=== PATIENT | male | born 1975 | race Caucasian/White ===

== ENCOUNTER 2017-05-18 13:49 | Inpatient (IN) | payer OTHER ==
[2017-05-18] MEDS ORDERED: METOCLOPRAMIDE 5 MG/ML 2 ML VIAL IVP STA (14:54)
[2017-05-18] MEDS ORDERED: SODIUM CHLORIDE 0.9% 1,000 ML IV STA (14:54)
[2017-05-18] MEDS ORDERED: PANTOPRAZOLE 40 MG/10 ML VIAL IVP STA (14:54)
[2017-05-18] MEDS ORDERED: HYDROmorphone 0.5 MG/0.5 ML SYRINGE IVP STA (14:54)
--- NOTE | 2017-05-18 15:01 | ED ---
Abdominal Pain HPI - General Chief Complaint: Abdominal Pain Stated Complaint: Abd Pain Time Seen by Provider: 05/18/17 14:48 Source: patient Mode of arrival: wheelchair Limitations: no limitations - History of Present Illness Initial Comments: 41-year-old male patient presents to emergency department today for evaluation of abdominal pain and vomiting. The patient states that abdominal pain started around 11 AM today. States that throughout the morning he had felt fine. He states that the abdominal pain is sharp in nature and over the upper abdomen. He is currently rating it a 10 out of 10 on the pain scale. He states that he has had multiple episodes of vomiting today. He states that one episode did appear to have coffee ground emesis present. He states he does have a history of gastric ulcers and has had similar symptoms before. He states this pain is worse than usual. He is currently being treated at [facility] facility for alcohol dependence. States that he has been sober for 16 days. He denies any history of pancreatitis. Denies any history of abdominal surgeries. Patient denies any recent fever, chills, shortness breath, chest pain, diarrhea , constipation, hematochezia, melena, back pain, numbness, tingling, headache, visual changes, hematuria, dysuria, urinary frequency, urinary urgency, or any other complaints. - Related Data Home Medications Medication Instructions Recorded Confirmed Acetaminophen [Tylenol 8 Hour] 650 mg PO Q4H PRN 05/18/17 05/18/17 Calcium/Magnesium 1 tab PO TID 05/18/17 05/18/17 Chlorpheniramine Maleate 4 mg PO Q4H PRN 05/18/17 05/18/17 [Chlor-Trimeton] Cholecalciferol [Vitamin D3] 1,000 unit PO DAILY 05/18/17 05/18/17 Folic Acid 1 mg PO DAILY 05/18/17 05/18/17 Gabapentin 600 mg PO TID 05/18/17 05/18/17 Ibuprofen [Motrin] 600 mg PO Q6H PRN 05/18/17 05/18/17 Loperamide [Imodium] 4 mg PO QID PRN 05/18/17 05/18/17 Loratadine [Claritin] 10 mg PO DAILY PRN 05/18/17 05/18/17 Multivitamins, Thera [Multivitamin 1 tab PO DAILY 05/18/17 05/18/17 (formulary)] Nicotine 7Mg/24Hr Patch [Habitrol 1 patch TRANSDERM DAILY 05/18/17 05/18/17 7Mg/24Hr Patch] Ondansetron HCl [Zofran] 8 mg PO Q6H PRN 05/18/17 05/18/17 Ondansetron [Zofran] 4 mg IM Q6H PRN 05/18/17 05/18/17 Propranolol HCl [Inderal Xl] 120 mg PO DAILY 05/18/17 05/18/17 Sucralfate [Carafate] 1 gm PO QID 05/18/17 05/18/17 Thiamine [Vitamin B-1] 100 mg PO DAILY 05/18/17 05/18/17 Tigan 200mg Im 200 mg IM Q6H PRN 05/18/17 05/18/17 Trimethobenzamide [Tigan] 300 mg PO Q6H PRN 05/18/17 05/18/17 cloNIDine HCL [Catapres] 0.3 mg PO Q4H PRN 05/18/17 05/18/17 traZODone HCL 150 mg PO HS 05/18/17 05/18/17 Allergies Allergy/AdvReac Type Severity Reaction Status Date / Time Penicillins Allergy Rash/Hives Verified 05/18/17 20:49 Review of Systems ROS Statement: Those systems with pertinent positive or pertinent negative responses have been documented in the HPI. ROS Other: All systems not noted in ROS Statement are negative. Past Medical History Past Medical History: No Reported History Additional Past Medical History / Comment(s): ulcer, in rehab for etoh abuse History of Any Multi-Drug Resistant Organisms: None Reported Past Surgical History: No Surgical Hx Reported Past Psychological History: Anxiety Smoking Status: Current every day smoker Past Alcohol Use History: None Reported Past Drug Use History: None Reported - Past Family History Mother Family Medical History: Thyroid Disorder Father Additional Family Medical History / Comment(s): ETOH General Exam Limitations: no limitations General appearance: alert, in distress (Mild), other (Well-developed, well- nourished adult male patient in mild distress related to pain. Vital signs upon presentation her temperature 97.0F, pulse 66, respirations 18, blood pressure 130/82, pulse ox 100% on room air.) Eye exam: Present: normal appearance, PERRL, EOMI. Absent: scleral icterus, conjunctival injection, periorbital swelling ENT exam: Present: normal exam, normal oropharynx, mucous membranes moist Respiratory exam: Present: normal lung sounds bilaterally. Absent: respiratory distress, wheezes, rales, rhonchi, stridor Cardiovascular Exam: Present: regular rate, normal rhythm, normal heart sounds. Absent: systolic murmur, diastolic murmur, rubs, gallop, clicks GI/Abdominal exam: Present: soft, tenderness (Generalized abdominal tenderness, worse over the upper abdomen, patient states most severe over the left upper quadrant.), guarding, normal bowel sounds. Absent: distended, rebound, rigid Back exam: Present: normal inspection. Absent: CVA tenderness (R), CVA tenderness (L) Neurological exam: Present: alert, oriented X3, CN II-XII intact Psychiatric exam: Present: normal affect, normal mood Skin exam: Present: warm, dry, intact, normal color. Absent: rash Course Vital Signs 05/18/17 05/18/17 05/18/17 14:07 16:08 17:00 Temperature 97.0 F L 99 F 99 F Pulse Rate 66 72 64 Respiratory 18 20 20 Rate Blood Pressure 130/82 146/98 149/90 O2 Sat by Pulse 100 100 95 Oximetry 05/18/17 05/18/17 18:00 19:00 Temperature Pulse Rate 94 99 Respiratory 20 20 Rate Blood Pressure 137/90 138/87 O2 Sat by Pulse 96 98 Oximetry - Reevaluation(s) Reevaluation #1: 05/18/17 17:07 Recheck of patient at 1700: Patient still complaining of significant pain in his upper abdomen. Vomiting has improved. Patient's amylase and lipase are significantly elevated. He will be given additional dose of pain medication, additional 1 L of fluid has been ordered. We will obtain an ultrasound of his right upper quadrant abdomen. Medical Decision Making - Medical Decision Making 41-year-old male patient presented for evaluation of upper abdominal pain and vomiting that started earlier today. Labs were reviewed did show white blood cell count of 14.2. He also did have an elevated amylase at 1408, and a lipase of 14,278. KUB was negative for any acute process. Patient is a known alcoholic however we did obtain a ultrasound of the right upper quadrant which was is negative for any acute process. Patient will be admitted to Dr. Berry's service. He will be given IV fluids, pain control, and anti-emetics. - Lab Data Result diagrams: 05/18/17 15:25 05/18/17 15:25 Lab Results 05/18/17 05/18/17 05/18/17 Range/Units 15:00 15:25 15:25 WBC 14.2 H (3.8-10.6) k/uL RBC 4.30 (4.30-5.90) m/uL Hgb 14.7 (13.0-17.5) gm/dL Hct 43.3 (39.0-53.0) % MCV 100.6 H (80.0-100.0) fL MCH 34.3 (25.0-35.0) pg MCHC 34.1 (31.0-37.0) g/dL RDW 11.6 (11.5-15.5) % Plt Count 534 H (150-450) k/uL Neutrophils % 75 % Lymphocytes % 17 % Monocytes % 4 % Eosinophils % 2 % Basophils % 0 % Neutrophils # 10.6 H (1.3-7.7) k/uL Lymphocytes # 2.4 (1.0-4.8) k/uL Monocytes # 0.6 (0-1.0) k/uL Eosinophils # 0.2 (0-0.7) k/uL Basophils # 0.1 (0-0.2) k/uL PT (9.0-12.0) sec INR (<1.2) APTT (22.0-30.0) sec Sodium 140 (137-145) mmol/L Potassium 4.1 (3.5-5.1) mmol/L Chloride 104 (98-107) mmol/L Carbon Dioxide 19 L (22-30) mmol/L Anion Gap 17 mmol/L BUN 5 L (9-20) mg/dL Creatinine 0.69 (0.66-1.25) mg/dL Est GFR (MDRD) Af Amer >60 (>60 ml/min/1.73 sqM) Est GFR (MDRD) Non-Af >60 (>60 ml/min/1.73 sqM) Glucose 107 H (74-99) mg/dL Plasma Lactic Acid Kel (0.7-2.0) mmol/L Calcium 10.3 H (8.4-10.2) mg/dL Total Bilirubin 0.8 (0.2-1.3) mg/dL AST 38 (17-59) U/L ALT 39 (21-72) U/L Alkaline Phosphatase 65 (38-126) U/L Total Protein 8.0 (6.3-8.2) g/dL Albumin 4.4 (3.5-5.0) g/dL Amylase 1408 H* (30-110) U/L Lipase 85982 H (23-300) U/L Urine Color Yellow Urine Appearance Clear (Clear) Urine pH 8.0 (5.0-8.0) Ur Specific [place] 1.010 (1.001-1.035) Urine Protein Negative (Negative) Urine Glucose (UA) Negative (Negative) Urine Ketones 3+ H (Negative) Urine Blood Negative (Negative) Urine Nitrite Negative (Negative) Urine Bilirubin Negative (Negative) Urine Urobilinogen <2.0 (<2.0) mg/dL Ur Leukocyte Esterase Negative (Negative) 05/18/17 05/18/17 Range/Units 15:25 15:25 WBC (3.8-10.6) k/uL RBC (4.30-5.90) m/uL Hgb (13.0-17.5) gm/dL Hct (39.0-53.0) % MCV (80.0-100.0) fL MCH (25.0-35.0) pg MCHC (31.0-37.0) g/dL RDW (11.5-15.5) % Plt Count (150-450) k/uL Neutrophils % % Lymphocytes % % Monocytes % % Eosinophils % % Basophils % % Neutrophils # (1.3-7.7) k/uL Lymphocytes # (1.0-4.8) k/uL Monocytes # (0-1.0) k/uL Eosinophils # (0-0.7) k/uL Basophils # (0-0.2) k/uL PT 11.5 (9.0-12.0) sec INR 1.1 (<1.2) APTT 25.4 (22.0-30.0) sec Sodium (137-145) mmol/L Potassium (3.5-5.1) mmol/L Chloride (98-107) mmol/L Carbon Dioxide (22-30) mmol/L Anion Gap mmol/L BUN (9-20) mg/dL Creatinine (0.66-1.25) mg/dL Est GFR (MDRD) Af Amer (>60 ml/min/1.73 sqM) Est GFR (MDRD) Non-Af (>60 ml/min/1.73 sqM) Glucose (74-99) mg/dL Plasma Lactic Acid Kel 1.8 (0.7-2.0) mmol/L Calcium (8.4-10.2) mg/dL Total Bilirubin (0.2-1.3) mg/dL AST (17-59) U/L ALT (21-72) U/L Alkaline Phosphatase (38-126) U/L Total Protein (6.3-8.2) g/dL Albumin (3.5-5.0) g/dL Amylase (30-110) U/L Lipase (23-300) U/L Urine Color Urine Appearance (Clear) Urine pH (5.0-8.0) Ur Specific [place] (1.001-1.035) Urine Protein (Negative) Urine Glucose (UA) (Negative) Urine Ketones (Negative) Urine Blood (Negative) Urine Nitrite (Negative) Urine Bilirubin (Negative) Urine Urobilinogen (<2.0) mg/dL Ur Leukocyte Esterase (Negative) - Radiology Data Radiology results: report reviewed, image reviewed Single supine KUB image of the abdomen is obtained. Small bowel Demster is no evidence for dilation or air-fluid levels. Gas and fecal material seen and nondistended colon. No convincing evidence for pneumoperitoneum. No unusual calcifications. Lung bases are clear. The osseous structures are intact. Impression by Dr. Sotomayor states overall nonobstructive bowel gas pattern. Ultrasound of the right upper quadrant abdomen report reviewed in its entirety. Impression by Dr. Molina shows negative right upper quadrant abdominal sonogram. No gallstones or dilated ducts. Disposition Clinical Impression: Acute pancreatitis, Vomiting Disposition: ADMITTED IP TO THIS [facility] Condition: Fair Decision to Admit Reason: Admit from EC Decision Date: 05/18/17 Decision Time: 18:33
[2017-05-18 15:24] LABS: Appearance,Urine Clear (Clear); Bilirubin,Urine Negative (Negative); Glucose,Urine (UA) Negative (Negative); Ketones,Urine 3+ (Negative); Leukocyte Esterase,Urine Negative (Negative); Nitrite,Urine Negative (Negative); Protein,Urine Negative (Negative); UA Billing (MACRO vs. MICRO) CHEM; Urobilinogen,Urine <2.0 mg/dL (<2.0)
[2017-05-18 15:48] LABS: Basophils # (A) 0.1 k/uL (0-0.2); Basophils % (A) 0 %; CH 33.9; CHCM 33.8; Eosinophils # (A) 0.2 k/uL (0-0.7); Eosinophils % (A) 2 %; HCT 43.3 % (39.0-53.0); HDW 2.67; HGB 14.7 gm/dL (13.0-17.5); INR 1.1 (<1.2); Luc # (Auto) 0.26; Luc % (Auto) 2; Lymphocytes # (A) 2.4 k/uL (1.0-4.8); Lymphocytes % (A) 17 %; MCH 34.3 pg (25.0-35.0); MCHC 34.1 g/dL (31.0-37.0); MCV 100.6 fL (80.0-100.0); Mean Platelet Volume 7.1; Monocytes # (A) 0.6 k/uL (0-1.0); Monocytes % (A) 4 %; Neutrophils # (A) 10.6 k/uL (1.3-7.7); Neutrophils % (A) 75 %; Partial Thromboplastin Time 25.4 sec (22.0-30.0); Prothrombin Time 11.5 sec (9.0-12.0); RDW 11.6 % (11.5-15.5); WBC 14.2 k/uL (3.8-10.6); WBC (Perox) 14.88
[2017-05-18 15:50] LABS: ALT 39 U/L (21-72); AST 38 U/L (17-59); Alkaline Phosphatase 65 U/L (38-126); Anion Gap 17 mmol/L; Blood Urea Nitrogen 5 mg/dL (9-20); Calcium 10.3 mg/dL (8.4-10.2); Carbon Dioxide 19 mmol/L (22-30); Chloride 104 mmol/L (98-107); Glucose 107 mg/dL (74-99); Non-African American GFR(MDRD) >60 (>60 ml/min/1.73 sqM); Potassium 4.1 mmol/L (3.5-5.1); Sodium 140 mmol/L (137-145); Total Bilirubin 0.8 mg/dL (0.2-1.3)
--- NOTE | 2017-05-18 16:03 | XR ---
EXAMINATION TYPE: XR KUB DATE OF EXAM: 05/18/2017 COMPARISON: NONE HISTORY: Pain TECHNIQUE: Single supine KUB image of the abdomen is obtained FINDINGS: Small bowel demonstrates no evidence for dilatation or air fluid levels. Gas and fecal material is seen in non-distended colon. No convincing evidence for pneumoperitoneum. No unusual calcifications. The lung bases are clear. The osseous structures are intact. IMPRESSION: 1. Overall nonobstructive bowel gas pattern.
[2017-05-18] MEDS ORDERED: SODIUM CHLORIDE 0.9% 1,000 ML IV ONE (16:08)
[2017-05-18 16:25] LABS: Amylase 1408 U/L (30-110)
[2017-05-18] MEDS ORDERED: HYDROmorphone 1 MG/ML 1 ML SYRINGE IVP STA (17:02)
--- NOTE | 2017-05-18 18:05 | US ---
EXAMINATION TYPE: US abdomen limited DATE OF EXAM: 05/18/2017 COMPARISON: NONE CLINICAL HISTORY: Pain. Pain and vomiting EXAM MEASUREMENTS: Liver Length: 16.6 cm Gallbladder Wall: 0.18 cm CBD: 0.39 cm Right Kidney: 11.3 x 5.8 x 4.8 cm Limited exam due to bowel gas Pancreas: Obscured by bowel gas Liver: Increased attenuation Gallbladder: wnl Evidence for sonographic Bundy's sign: No CBD: wnl Right Kidney: No hydronephrosis or masses seen IMPRESSION: Negative right upper quadrant abdominal sonogram. No gallstones or dilated ducts.
[2017-05-18] MEDS ORDERED: NALOXONE 0.4 MG/ML 1 ML VIAL IV PRN (18:29)
[2017-05-18] MEDS ORDERED: HYDROmorphone 1 MG/ML 1 ML SYRINGE IVP PRN (18:29)
[2017-05-18] MEDS ORDERED: LORATADINE 10 MG TAB PO PRN (19:15)
[2017-05-18] MEDS ORDERED: diphenhydrAMINE 25 MG CAP PO PRN (19:15)
[2017-05-18] MEDS ORDERED: TRIMETHOBENZAMIDE 300 MG CAP PO PRN (19:15)
[2017-05-18] MEDS ORDERED: ACETAMINOPHEN TAB 325 MG TAB PO PRN (19:15)
[2017-05-18] MEDS ORDERED: cloNIDine HCL 0.1 MG TAB PO PRN (19:15)
[2017-05-18] MEDS ORDERED: LOPERAMIDE 2 MG CAP PO PRN (19:15)
[2017-05-18] MEDS ORDERED: SUCRALFATE 1 GM TAB PO SCH (21:00)
[2017-05-18] MEDS: SODIUM CHLORIDE 0.9% 1,000 ML IV SCH (21:46)
[2017-05-18] MEDS: CALCIUM CARBONATE 500 MG CHEWABLE PO SCH (21:46)
[2017-05-18] MEDS: GABAPENTIN 300 MG CAP PO SCH (21:46)
[2017-05-18] MEDS: traZODone HCL 50 MG TAB PO SCH (21:47)
--- NOTE | 2017-05-18 21:58 | HP ---
HISTORY AND PHYSICAL DATE OF ADMISSION: 05/18/2017 PRESENTING COMPLAINT: Epigastric pain. HISTORY OF PRESENTING COMPLAINT: This is a 41-year-old patient of Dr. Kapadia, a long-standing alcoholic, who for the last 16 days has been at [facility]. The patient about 2 years ago had an EGD, was found to have peptic ulcer disease for which he is on medications. The patient has continued to drink up to about 2 weeks ago, also a smoker. Patient is known to me from recent admission when the patient had DTs and is having abdominal pain on and off. This morning, patient started having increasing abdominal pain with vomiting and increasing pain and he was sent in here. No dark stools. No fever. The patient is somewhat restless. No chest pain. REVIEW OF SYSTEMS: CONSTITUTIONAL: Tired. HEENT: None. RESPIRATORY: None. CARDIOVASCULAR: None. GASTROINTESTINAL: As above. GENITOURINARY: None. MUSCULOSKELETAL: None. DERMATOLOGICAL: None. HEMATOLOGIC: None. LYMPHATIC: None. PSYCHIATRY: A lot of anxiety. NEUROLOGICAL: Neuropathic pain in the neck for which patient has taken Neurontin. PAST MEDICAL HISTORY: Seizure disorder, peptic ulcer disease, neck radiculopathy. PAST SURGICAL HISTORY: None. PAST PSYCH HISTORY: Anxiety, depression. SOCIAL HISTORY: Smoking a pack a day. Alcoholic up until about 2 weeks ago. Lives with his mother. FAMILY HISTORY: Thyroid disorder, alcohol problem. HOME MEDICATIONS: 1. Trazodone 150 mg q.h.s. 2. Catapres 0.3 mg q.4 p.r.n. 3. Tigan 300 mg every 6 hours p.r.n. 4. Thiamine 100 mg p.o. daily. 5. Carafate 1 g p.o. q.i.d. 6. Inderal XL 100 mg p.o. daily. 7. Zofran 4 mg every 6 hours p.r.n. 8. Nicotine patch. 9. Multivitamin 1 tablet p.o. daily. 10.Claritin 10 mg p.o. daily p.r.n. 11.Imodium 4 mg p.o. q.i.d. p.r.n. 12.Motrin 600 mg every 6 hours p.r.n. 13.Neurontin 600 mg p.o. t.i.d. 14.Folic acid 1 mg p.o. daily. 15.Vitamin D3 1000 units p.o. daily. 16.Chlor-Trimeton 4 mg every 6 hours p.r.n. 17.Tylenol 350 mg every 6 hours q.4h p.r.n. ALLERGIES: PENICILLIN. EXAMINATION: Temperature 98.7, pulse 67, respirations 18, blood pressure 130/82, pulse ox 100% on room air. GENERAL APPEARANCE: Average built, lying in bed, slightly restless. EYES: Pupils equal. Conjunctivae normal. HEENT: Oral cavity normal. NECK: JVD not raised. Mass not palpable. RESPIRATORY: Effort normal. Lungs are clear. CARDIOVASCULAR: First and second sounds normal. No edema. ABDOMEN: Epigastric tenderness. No guarding or rigidity. Liver spleen not palpable. LYMPHATIC: No lymph nodes palpable in neck or axillae. PSYCHIATRY: Alert and oriented times three. Mood and affect anxious-appearing. NEUROLOGICAL: Pupils, equal. Cranial nerves grossly intact. Power and sensation grossly intact. INVESTIGATIONS: White count 14.2, hemoglobin 14.7, platelets 534. Potassium 4.1, BUN 10, creatinine 0.69. Amylase 1408, lipase 16787. ASSESSMENT: 1. Acute severe pancreatitis, alcohol-induced. 2. Hypercalcemia from dehydration. 3. Peptic ulcer disease. 4. Chronic nicotine dependence. 5. Chronic alcohol dependence. 6. Anxiety, not otherwise specified. PLAN: Patient is on PPIs, IV fluids. Patient is on n.p.o. Diet. Will get a psychiatry opinion. Check labs in the morning. Care was discussed with the patient. MMODL / IJN: [id number] /
[2017-05-18] MEDS: NICOTINE 21MG/24HR PATCH TRANSDERM SCH (23:14)
[2017-05-18] MEDS: CALCIUM CARBONATE LIQUID 500 MG/5 ML CUP PO SCH (23:14)
[2017-05-19] MEDS: METOPROLOL TARTRATE 12.5 MG TAB PO SCH ×4 (00:32→23:40)
[2017-05-19] MEDS: SODIUM CHLORIDE 0.9% 1,000 ML IV SCH ×4 (05:49→23:37)
[2017-05-19] MEDS: ONDANSETRON 4 MG/2 ML VIAL IVP PRN ×3 (07:11→20:20)
[2017-05-19 08:40] LABS: Basophils % (A) 0 %; CH 34.4; CHCM 34.2; Eosinophils # (A) 0.1 k/uL (0-0.7); Eosinophils % (A) 0 %; HCT 40.3 % (39.0-53.0); HDW 2.59; Luc # (Auto) 0.11; Luc % (Auto) 1; Lymphocytes # (A) 1.4 k/uL (1.0-4.8); Lymphocytes % (A) 10 %; MCH 32.7 pg (25.0-35.0); MCHC 32.3 g/dL (31.0-37.0); MCV 101.1 fL (80.0-100.0); Mean Platelet Volume 7.2; Monocytes # (A) 0.8 k/uL (0-1.0); Monocytes % (A) 6 %; Neutrophils # (A) 10.7 k/uL (1.3-7.7); Neutrophils % (A) 82 %; RBC 3.98 m/uL (4.30-5.90); RDW 12.2 % (11.5-15.5); WBC 13.1 k/uL (3.8-10.6); WBC (Perox) 12.68
[2017-05-19 08:58] LABS: ALT 27 U/L (21-72); AST 21 U/L (17-59); Alkaline Phosphatase 58 U/L (38-126); Anion Gap 16 mmol/L; Blood Urea Nitrogen 3 mg/dL (9-20); Calcium 8.9 mg/dL (8.4-10.2); Carbon Dioxide 18 mmol/L (22-30); Chloride 105 mmol/L (98-107); Glucose 90 mg/dL (74-99); Non-African American GFR(MDRD) >60 (>60 ml/min/1.73 sqM); Potassium 3.7 mmol/L (3.5-5.1); Sodium 139 mmol/L (137-145); Total Bilirubin 0.7 mg/dL (0.2-1.3); Total Protein 6.6 g/dL (6.3-8.2)
[2017-05-19] MEDS ORDERED: PROPRANOLOL LA 60 MG CAP.SA.24H PO SCH (09:00)
[2017-05-19] MEDS ORDERED: PANTOPRAZOLE 40 MG/10 ML VIAL IV SCH (09:00)
[2017-05-19] MEDS ORDERED: NICOTINE 7MG/24HR PATCH TRANSDERM SCH (09:00)
[2017-05-19] MEDS: CALCIUM CARBONATE LIQUID 500 MG/5 ML CUP PO SCH ×3 (09:02→16:33)
[2017-05-19] MEDS: PANTOPRAZOLE 40 MG TABLET PO SCH ×2 (09:02→16:33)
[2017-05-19] MEDS: GABAPENTIN 300 MG CAP PO SCH ×3 (09:02→23:40)
[2017-05-19] MEDS: CALCIUM CARBONATE 500 MG CHEWABLE PO SCH (09:02)
[2017-05-19] MEDS: NICOTINE 21MG/24HR PATCH TRANSDERM SCH (09:02)
[2017-05-19 09:16] LABS: Amylase 1106 U/L (30-110)
[2017-05-19] MEDS ORDERED: SODIUM CHLORIDE 0.9% 500 ML IV ONE (09:49)
--- NOTE | 2017-05-19 09:50 | P.CONS ---
History of Present Illness - Reason for Consult Consult date: 05/19/17 Pancreatitis Requesting physician: Amaury Berry - History of Present Illness 41-year-old gentleman with a history of long-standing alcohol abuse presents with acute abdominal pain in the upper abdomen. Patient has been in rehabilitation for alcoholism the last 17 days. Last alcoholic drink 3-4 weeks ago. Pain is very sharp localized to the upper abdomen midepigastrium without fever or chills. Denies hematemesis hematochezia melena. He has had previous episodes of pancreatitis some requiring hospitalization. He has been drinking alcohol on daily basis for more than 20 years. Admission white count 14.2. Platelet 534. Hemoglobin 14.7. INR 1.1. BUN 5. Creatinine 0.6. Amylase 1408. Lipase 14,278. Today lipase is 16,458. Amylase 1106. LFTs within normal limits. Ultrasound abdomen negative no gallstones dilated ducts or evidence of pseudocyst. Review of Systems Constitutional: Denies fever, chills, sweats, weight gain, or loss. HEENT: Negative for migraines, blurred vision or loss, earaches, drainage, tinnitus, oral mucosal lesions, dysphagia, or odynophagia. Cardiac: Negative for chest pain, arrhythmias, or palpitation. Respiratory: Negative for shortness of breath, hemoptysis, cough, or sputum production. Gastrointestinal: See HPI for pertinent findings. Genitourinary: Negative for hematuria, urgency, frequency, polyuria, dysuria, or penile discharge. Musculoskeletal: Negative for muscle aches, swelling, arthritis, and arthralgias. Neurologic: Negative for stroke or TIA. Endocrine: Negative for thyroid problems. Skin: Negative for rash or itching. Psychiatric: Negative history for depression and anxiety All systems: negative (See HPI) Past Medical History Past Medical History: No Reported History Additional Past Medical History / Comment(s): ulcer, in rehab for etoh abuse History of Any Multi-Drug Resistant Organisms: None Reported Past Surgical History: No Surgical Hx Reported Past Anesthesia/Blood Transfusion Reactions: No Reported Reaction Past Psychological History: Anxiety Smoking Status: Current every day smoker Past Alcohol Use History: None Reported Past Drug Use History: None Reported - Past Family History Mother Family Medical History: Thyroid Disorder Father Additional Family Medical History / Comment(s): ETOH Medications and Allergies Home Medications Medication Instructions Recorded Confirmed Type Acetaminophen [Tylenol 8 Hour] 650 mg PO Q4H PRN 05/18/17 05/18/17 History Calcium/Magnesium 1 tab PO TID 05/18/17 05/18/17 History Chlorpheniramine Maleate 4 mg PO Q4H PRN 05/18/17 05/18/17 History [Chlor-Trimeton] Cholecalciferol [Vitamin D3] 1,000 unit PO DAILY 05/18/17 05/18/17 History Folic Acid 1 mg PO DAILY 05/18/17 05/18/17 History Gabapentin 600 mg PO TID 05/18/17 05/18/17 History Ibuprofen [Motrin] 600 mg PO Q6H PRN 05/18/17 05/18/17 History Loperamide [Imodium] 4 mg PO QID PRN 05/18/17 05/18/17 History Loratadine [Claritin] 10 mg PO DAILY PRN 05/18/17 05/18/17 History Multivitamins, Thera [Multivitamin 1 tab PO DAILY 05/18/17 05/18/17 History (formulary)] Nicotine 7Mg/24Hr Patch [Habitrol 1 patch TRANSDERM DAILY 05/18/17 05/18/17 History 7Mg/24Hr Patch] Ondansetron HCl [Zofran] 8 mg PO Q6H PRN 05/18/17 05/18/17 History Ondansetron [Zofran] 4 mg IM Q6H PRN 05/18/17 05/18/17 History Propranolol HCl [Inderal Xl] 120 mg PO DAILY 05/18/17 05/18/17 History Sucralfate [Carafate] 1 gm PO QID 05/18/17 05/18/17 History Thiamine [Vitamin B-1] 100 mg PO DAILY 05/18/17 05/18/17 History Tigan 200mg Im 200 mg IM Q6H PRN 05/18/17 05/18/17 History Trimethobenzamide [Tigan] 300 mg PO Q6H PRN 05/18/17 05/18/17 History cloNIDine HCL [Catapres] 0.3 mg PO Q4H PRN 05/18/17 05/18/17 History traZODone HCL 150 mg PO HS 05/18/17 05/18/17 History Allergies Allergy/AdvReac Type Severity Reaction Status Date / Time Penicillins Allergy Rash/Hives Verified 05/18/17 20:49 Physical Exam Vitals: Vital Signs Temp Pulse Pulse Resp BP BP BP 05/19/17 07:00 97.6 F 98 16 142/96 05/18/17 22:14 97.9 F 62 16 149/85 05/18/17 19:00 99 20 138/87 05/18/17 18:00 94 20 137/90 05/18/17 17:00 99 F 64 20 149/90 05/18/17 16:08 99 F 72 20 146/98 05/18/17 14:07 97.0 F L 66 18 130/82 Pulse Ox 05/19/17 07:00 96 05/18/17 22:14 99 05/18/17 19:00 98 05/18/17 18:00 96 05/18/17 17:00 95 05/18/17 16:08 100 05/18/17 14:07 100 Intake and Output 05/18/17 05/19/17 05/19/17 22:59 06:59 14:59 Output Total 400 500 Balance -400 -500 Output: Urine 400 500 Other: # Voids 1 General appearance: The patient is alert, oriented, in no acute distress. HET: Head is normocephalic and atraumatic. Pupils are equal and reactive. Oropharynx is clear without lesions. Neck: Supple without lymphadenopathy. Trachea midline. Heart: S1 S2. Regular rate and rhythm. Lungs: No crackles or wheezes are heard. Abdomen: Soft, midepigastric tenderness slight bloatedness with bowel sounds. No peritoneal signs. No palpable organomegaly or masses. Extremities: Normal skin color and turgor. No cyanosis, rash, ulceration, clubbing, or edema. Radial and pedal pulses are 2/4 bilaterally. Neurological: No focal deficits. Strength and sensation are grossly intact. Results CBC & Chem 7: 05/19/17 08:12 05/19/17 08:12 Labs: Abnormal Lab Results - Last 24 Hours (Table) 05/18/17 05/18/17 05/18/17 Range/Units 15:00 15:25 15:25 WBC 14.2 H (3.8-10.6) k/uL RBC (4.30-5.90) m/uL MCV 100.6 H (80.0-100.0) fL Plt Count 534 H (150-450) k/uL Neutrophils # 10.6 H (1.3-7.7) k/uL Carbon Dioxide 19 L (22-30) mmol/L BUN 5 L (9-20) mg/dL Creatinine (0.66-1.25) mg/dL Glucose 107 H (74-99) mg/dL Calcium 10.3 H (8.4-10.2) mg/dL Amylase 1408 H* (30-110) U/L Lipase 34256 H (23-300) U/L Urine Ketones 3+ H (Negative) 05/19/17 05/19/17 Range/Units 08:12 08:12 WBC 13.1 H (3.8-10.6) k/uL RBC 3.98 L (4.30-5.90) m/uL MCV 101.1 H (80.0-100.0) fL Plt Count 461 H (150-450) k/uL Neutrophils # 10.7 H (1.3-7.7) k/uL Carbon Dioxide 18 L (22-30) mmol/L BUN 3 L (9-20) mg/dL Creatinine 0.59 L (0.66-1.25) mg/dL Glucose (74-99) mg/dL Calcium (8.4-10.2) mg/dL Amylase 1106 H* (30-110) U/L Lipase 08899 H (23-300) U/L Urine Ketones (Negative) US - abdomen: report reviewed (Dr. Henao) Assessment and Plan (1) Acute pancreatitis Narrative/Plan: Suspect alcohol pancreatitis Status: Acute (2) ETOH abuse Status: Acute Plan: 1. Aggressive IV hydration NS 150 ml/hr. Saline bolus 500 ml x 1. Nothing by mouth except medications ice chips until pain enzymes improves. 2. GI prophylaxis Protonix 40 mg twice daily ordered. 3. Alcohol abstinence reinforced. Thank you for this kind referral and the opportunity to participate in the care of your patient. This consultation was discussed with Dr. Henao. The impression and plan of care have been directed as dictated.
[2017-05-19] MEDS: CHOLECALCIFEROL 1,000 UNIT TAB PO SCH (11:37)
[2017-05-19] MEDS: FOLIC ACID 1 MG TAB PO SCH (11:37)
[2017-05-19] MEDS: THIAMINE 100 MG TAB PO SCH (11:37)
[2017-05-19] MEDS: MULTIVITAMINS, THERA 1 EACH TAB PO SCH (11:37)
[2017-05-19] MEDS: HYDROmorphone 0.5 MG/0.5 ML SYRINGE IVP PRN ×5 (11:38→23:37)
[2017-05-19 12:14] LABS: Blood Urea Nitrogen 3 mg/dL (9-20); Non-African American GFR(MDRD) >60 (>60 ml/min/1.73 sqM)
--- NOTE | 2017-05-19 21:38 | P.PN ---
Progress Note - Text Progress Note Date: 05/19/17 DATE OF SERVICE: 05/19/2017 PRESENTING COMPLAINT: Acute abdominal pain HISTORY OF PRESENT ILLNESS: 41-year-old patient who presented with increasing abdominal pain and vomiting no dark stools no fever, diagnostic testing revealed acute severe pancreatitis and admitted for the same. INTERVAL HISTORY: 05/19/2017: Patient lying in bed appears uncomfortable. Complains of acute abdominal pain that is excruciating. Asking for something for pain. States Tylenol isn't doing the job. Complains of nausea no vomiting. GI consulted. Continues on IV fluids and proton pump inhibitors. Nothing by mouth status maintained, ambulatory to and from the bathroom independently. REVIEW OF SYSTEMS: Done for constitutional ,cardiovascular, GI, pulmonary with relevant findings as above. CURRENT MEDICATIONS Tylenol, calcium carbonate, cholecalciferol, Catapres, gabapentin, Dilaudid half a milligram IV push every 3 hours, Imodium, Lopressor, multivitamin, nicotine patch, Protonix 40 mg by mouth before meals twice a day, trazodone 150 mg by mouth at bedtime, Tigan 300 mg by mouth every 6 hours when necessary PHYSICAL EXAM VITAL SIGNS: Temperature 97.5, pulse 79, respiratory rate 18, blood pressure 137/91, oxygen saturation 97% on room air. GENERAL APPEARANCE: Lying in bed, appears uncomfortable EYES: Pupils equal. Conjunctiva normal. NECK: JVD not raised. Mass not palpable. RESPIRATORY: Respiratory effort normal. Lungs clear to auscultation. CARDIOVASCULAR: First and second sounds normal. No edema. ABDOMEN: Soft. Liver and spleen not palpable. Mid epigastric tenderness. No guarding or rigidity No mass palpable. PSYCHIATRY: Alert and oriented x3. Mood and affect anxious appearing INVESTIGATIONS: White blood cell count 13.1, BUN 3, creatinine 0.59, amylase 1106, lipase 16, 458. ASSESSMENT: -Acute severe pancreatitis, alcohol induced, worsening -Hypercalcemia from dehydration. -Peptic ulcer disease. -Chronic nicotine dependence, line-chronic alcohol dependence. -Anxiety not otherwise specified. PLAN: Continue aggressive IV hydration, pain control, maintain nothing by mouth status. Plan of care discussed with the patient the bedside, we will follow closely. KEY ACCOUNT REPRESENTATIVE statement: Patient was seen and examined by nurse practitioner Jaylyn Gonzalez and all elements of the case discussed with attending Dr. Berry
--- NOTE | 2017-05-19 22:08 | P.CN ---
Psychiatric Consult - . Consult date: 05/19/17 Consult:: PSYCHIATRY CONSULT: Patient interviewed at bedside briefly. Patient had just been administered pain medication so interview was very short. Patient denied suicidal ideations but did endose anxiety. She reports the source of such being the result of being [place] 9[place]11 when it occurred. She has recurrent dreams and nightmares of that day. Interview terminated. Will follow up tomorrow. ~ Alberto Cabezas DO Assessment and Plan Time with Patient: Less than 30
--- NOTE | 2017-05-19 22:53 | PN ---
PROGRESS NOTE ATTENDING NOTE: This patient was seen and examined by me. I discussed the case with my nurse practitioner, Jpcapri. Patient was admitted with acute alcoholic pancreatitis epigastric pain. Looks a bit depressed. PHYSICAL EXAMINATION: Abdomen soft. Epigastric tenderness. Anxious-appearing. LABS: White count 13.1, potassium 3.7, amylase 1106, lipase 16,458. ASSESSMENT: 1. Acute alcoholic pancreatitis, slow to respond. 2. Anxiety and depression not otherwise specified. PLAN: Will get a psychiatry opinion. Patient remains n.p.o. Again patient was reminded about smoking and alcohol and not to do the same. MMODL / IJN: [id number] /
[2017-05-19] MEDS: traZODone HCL 50 MG TAB PO SCH (23:40)
[2017-05-20] MEDS: traZODone HCL 50 MG TAB PO SCH ×2 (01:31→22:40)
[2017-05-20] MEDS: HYDROmorphone 0.5 MG/0.5 ML SYRINGE IVP PRN ×5 (02:43→20:16)
[2017-05-20] MEDS: ONDANSETRON 4 MG/2 ML VIAL IVP PRN ×3 (02:43→20:16)
[2017-05-20] MEDS: SODIUM CHLORIDE 0.9% 1,000 ML IV SCH ×4 (05:16→22:40)
[2017-05-20 08:15] LABS: Basophils % (A) 0 %; CH 34.3; CHCM 34.1; Eosinophils # (A) 0.1 k/uL (0-0.7); Eosinophils % (A) 1 %; HCT 37.3 % (39.0-53.0); HDW 2.55; HGB 12.4 gm/dL (13.0-17.5); Luc # (Auto) 0.18; Luc % (Auto) 1; Lymphocytes # (A) 1.5 k/uL (1.0-4.8); Lymphocytes % (A) 11 %; MCH 33.6 pg (25.0-35.0); MCHC 33.4 g/dL (31.0-37.0); MCV 100.8 fL (80.0-100.0); Mean Platelet Volume 7.2; Monocytes % (A) 7 %; Neutrophils # (A) 11.2 k/uL (1.3-7.7); Neutrophils % (A) 80 %
[2017-05-20 08:43] LABS: Amylase 226 U/L (30-110); Anion Gap 14 mmol/L; Blood Urea Nitrogen 2 mg/dL (9-20); Calcium 8.6 mg/dL (8.4-10.2); Carbon Dioxide 19 mmol/L (22-30); Chloride 101 mmol/L (98-107); Glucose 77 mg/dL (74-99); Non-African American GFR(MDRD) >60 (>60 ml/min/1.73 sqM); Potassium 3.6 mmol/L (3.5-5.1); Sodium 134 mmol/L (137-145)
--- NOTE | 2017-05-20 09:51 | P.PN ---
Subjective Progress Note Date: 05/20/17 Principal diagnosis: Pancreatitis Admitted with alcohol pancreatitis. Feels better today. Pancreatic enzymes much improved. Afebrile. White count 14. Hemoglobin 12.4. Lipase 1004. Amylase 226. Objective - Vital Signs Vital signs: Vital Signs Temp 99.1 F 05/20/17 07:00 Pulse 106 H 05/20/17 07:00 Resp 16 05/20/17 07:00 BP 133/74 05/20/17 07:00 Pulse Ox 99 05/20/17 07:00 Intake & Output 05/19/17 05/20/17 05/20/17 18:59 06:59 18:59 Intake Total 0 Output Total 2450 1400 Balance -2450 -1400 Weight 81.647 kg Intake: Oral 0 Output: Urine 2250 1400 Emesis 200 Other: Voiding Method Toilet # Voids 1 1 # Emeses 1 - Exam General appearance: The patient is alert, oriented, in no acute distress. HET: Head is normocephalic and atraumatic. Pupils are equal and reactive. Oropharynx is clear without lesions. Neck: Supple without lymphadenopathy. Trachea midline. Heart: S1 S2. Regular rate and rhythm. Lungs: No crackles or wheezes are heard. Abdomen: Soft, midepigastric tenderness, nondistended with bowel sounds. No peritoneal signs. No palpable organomegaly or masses. Extremities: Normal skin color and turgor. No cyanosis, rash, ulceration, clubbing, or edema. Radial and pedal pulses are 2/4 bilaterally. Neurological: No focal deficits. Strength and sensation are grossly intact. - Labs CBC & Chem 7: 05/20/17 07:35 05/20/17 07:35 Labs: Abnormal Lab Results - Last 24 Hours (Table) 05/19/17 05/20/17 05/20/17 Range/Units 11:33 07:35 07:35 WBC 14.0 H (3.8-10.6) k/uL RBC 3.70 L (4.30-5.90) m/uL Hgb 12.4 L (13.0-17.5) gm/dL Hct 37.3 L (39.0-53.0) % MCV 100.8 H (80.0-100.0) fL Neutrophils # 11.2 H (1.3-7.7) k/uL Sodium 134 L (137-145) mmol/L Carbon Dioxide 19 L (22-30) mmol/L BUN 3 L 2 L (9-20) mg/dL Creatinine 0.58 L 0.55 L (0.66-1.25) mg/dL Amylase 226 H (30-110) U/L Lipase 1004 H (23-300) U/L Assessment and Plan (1) Acute pancreatitis Narrative/Plan: Suspect alcohol pancreatitis Status: Acute (2) ETOH abuse Status: Acute Plan: 1. Supportive measures. Clear liquid diet. We'll continue to follow. Assessment and plan a care discussed with Dr. Henao
[2017-05-20] MEDS: PANTOPRAZOLE 40 MG TABLET PO SCH ×2 (10:27→16:39)
[2017-05-20] MEDS: CALCIUM CARBONATE LIQUID 500 MG/5 ML CUP PO SCH ×3 (10:27→16:39)
[2017-05-20] MEDS: NICOTINE 21MG/24HR PATCH TRANSDERM SCH (10:28)
[2017-05-20] MEDS: GABAPENTIN 300 MG CAP PO SCH ×3 (10:30→22:42)
[2017-05-20] MEDS: METOPROLOL TARTRATE 12.5 MG TAB PO SCH ×3 (10:30→22:42)
[2017-05-20] MEDS: CHOLECALCIFEROL 1,000 UNIT TAB PO SCH (10:31)
[2017-05-20] MEDS: THIAMINE 100 MG TAB PO SCH (10:31)
[2017-05-20] MEDS: MULTIVITAMINS, THERA 1 EACH TAB PO SCH (10:31)
[2017-05-20] MEDS: FOLIC ACID 1 MG TAB PO SCH (10:31)
--- NOTE | 2017-05-20 16:58 | PN ---
PROGRESS NOTE DATE OF SERVICE: 05/20/2017 INTERVAL HISTORY: This 41-year-old gentleman admitted with acute alcoholic intoxication as well as acute pancreatitis is being closely monitored at this time. The patient complained of some slight tremors also. Patient has been in rehab for 19 days. The patient is not taking any alcohol since he has checked into [facility] according to him. The patient has multiple electrolytes abnormalities also. PAST MEDICAL HISTORY: Reviewed. REVIEW OF SYSTEMS: Cardio system: No angina or palpitations. Respiratory: As mentioned earlier. GI : As mentioned earlier. mentioned earlier. Central nervous system: No numbness, weakness. MEDICATIONS ARE: Reviewed and include: 1. Tums. 2. Vitamin D3 1000 units. 3. Catapres 0.3 q.4h p.r.n. 4. Folic acid 1 mg. 5. Dilaudid. 6. Imodium. 7. Lopressor. 8. Narcan. 10.Protonix 40 mg. PHYSICAL EXAMINATION: The patient is alert, oriented x3. Pulse is 106. Blood pressure 130/70, respiration 16, temperature 99.1, pulse ox 99% on room air. HEENT conjunctivae normal. Oral mucosa moist. Neck is no jugular venous distention. No carotid bruit. No lymph node enlargement. Cardiovascular system: S1, S2 muffled. Respiratory: Breath sounds diminished in the bases. A few scattered rhonchi. No crackles. Abdomen is soft, minimal tenderness in the epigastrium. No guarding. No rigidity. No mass palpable. Legs: No edema. No swelling. Central nervous system: Higher functions as mentioned earlier. Moves all four limbs. No focal deficits. Lymphatics: No lymph nodes palpable in the neck, axillae or groin. Skin no ulcer, rash or bleeding. LAB STUDIES: WBC 14, hemoglobin 6.4, sodium 134, amylase 223, Glucose 105. ASSESSMENT: 1. Acute on chronic pancreatitis possibly. 2. History of ETOH. 3. Increased elevated lipase. 4. Increased WBC. 5. Anemia possibly secondary to chronic disease. 6. History of anxiety. RECOMMENDATIONS AND DISCUSSION: This 41-year-old gentleman who presented with multiple complex medical issues, we will monitor the patient closely. Continue the current management and continue symptomatic treatment. I would recommend continue the current medications. Abdominal ultrasound was done on 05/18/17 showed otherwise there is no evidence of gallstones on ultrasound. Continue to monitor. Guarded prognosis. Further recommendations to follow. Continue the rest of the medications. MMODL / IJN: [id number] / MTDAlannah
[2017-05-20 23:58] VITALS: RESP 18
[2017-05-21] MEDS: HYDROmorphone 0.5 MG/0.5 ML SYRINGE IVP PRN ×5 (00:13→14:37)
[2017-05-21] MEDS: ONDANSETRON 4 MG/2 ML VIAL IVP PRN ×2 (04:59→11:19)
[2017-05-21] MEDS: GABAPENTIN 300 MG CAP PO SCH ×2 (08:07→14:37)
[2017-05-21] MEDS: NICOTINE 21MG/24HR PATCH TRANSDERM SCH (08:07)
[2017-05-21] MEDS: SODIUM CHLORIDE 0.9% 1,000 ML IV SCH ×2 (08:07→11:14)
[2017-05-21] MEDS: METOPROLOL TARTRATE 12.5 MG TAB PO SCH ×2 (08:07→14:37)
[2017-05-21] MEDS: CALCIUM CARBONATE LIQUID 500 MG/5 ML CUP PO SCH ×2 (08:07→11:14)
[2017-05-21] MEDS: PANTOPRAZOLE 40 MG TABLET PO SCH (08:09)
[2017-05-21 09:54] LABS: Basophils % (A) 0 %; CH 34.3; CHCM 33.9; Eosinophils # (A) 0.5 k/uL (0-0.7); Eosinophils % (A) 5 %; HCT 35.3 % (39.0-53.0); HDW 2.62; HGB 11.4 gm/dL (13.0-17.5); Luc # (Auto) 0.11; Luc % (Auto) 1; Lymphocytes # (A) 1.5 k/uL (1.0-4.8); Lymphocytes % (A) 16 %; MCH 32.7 pg (25.0-35.0); MCHC 32.3 g/dL (31.0-37.0); MCV 101.5 fL (80.0-100.0); Mean Platelet Volume 7.5; Monocytes # (A) 0.7 k/uL (0-1.0); Monocytes % (A) 8 %; Neutrophils # (A) 6.4 k/uL (1.3-7.7); Neutrophils % (A) 70 %; RBC 3.47 m/uL (4.30-5.90); RDW 12.1 % (11.5-15.5); WBC 9.2 k/uL (3.8-10.6); WBC (Perox) 8.87
[2017-05-21 10:25] LABS: Amylase 47 U/L (30-110); Anion Gap 12 mmol/L; Blood Urea Nitrogen <2 mg/dL (9-20); Calcium 8.4 mg/dL (8.4-10.2); Carbon Dioxide 25 mmol/L (22-30); Chloride 102 mmol/L (98-107); Glucose 121 mg/dL (74-99); Non-African American GFR(MDRD) >60 (>60 ml/min/1.73 sqM); Potassium 3.3 mmol/L (3.5-5.1); Sodium 139 mmol/L (137-145)
[2017-05-21] MEDS: FOLIC ACID 1 MG TAB PO SCH (11:14)
[2017-05-21] MEDS: THIAMINE 100 MG TAB PO SCH (11:14)
[2017-05-21] MEDS: CHOLECALCIFEROL 1,000 UNIT TAB PO SCH (11:14)
[2017-05-21] MEDS: MULTIVITAMINS, THERA 1 EACH TAB PO SCH (11:14)
[2017-05-21] MEDS ORDERED: POTASSIUM CHLORIDE ER 20 MEQ TAB.ER PO STA (11:29)
--- NOTE | 2017-05-21 11:35 | P.PN ---
Subjective Progress Note Date: 05/21/17 Principal diagnosis: Pancreatitis Admitted with alcohol pancreatitis. Feels better today. Pancreatic enzymes normalized. Afebrile. Objective - Vital Signs Vital signs: Vital Signs Temp 99.0 F 05/21/17 07:00 Pulse 82 05/21/17 07:00 Resp 18 05/21/17 07:00 BP 115/71 05/21/17 07:00 Pulse Ox 94 L 05/21/17 07:00 Intake & Output 05/20/17 05/21/17 05/21/17 18:59 06:59 18:59 Intake Total 1100 240 Output Total 2200 625 Balance -1100 -385 Weight 81.647 kg Intake: Oral 1100 240 Output: Urine 2200 625 Other: Voiding Method Toilet Toilet Toilet # Voids 2 # Bowel Movements 0 - Exam General appearance: The patient is alert, oriented, in no acute distress. HET: Head is normocephalic and atraumatic. Pupils are equal and reactive. Oropharynx is clear without lesions. Neck: Supple without lymphadenopathy. Trachea midline. Heart: S1 S2. Regular rate and rhythm. Lungs: No crackles or wheezes are heard. Abdomen: Soft, midepigastric tenderness, nondistended with bowel sounds. No peritoneal signs. No palpable organomegaly or masses. Extremities: Normal skin color and turgor. No cyanosis, rash, ulceration, clubbing, or edema. Radial and pedal pulses are 2/4 bilaterally. Neurological: No focal deficits. Strength and sensation are grossly intact. - Labs CBC & Chem 7: 05/21/17 09:20 05/21/17 09:20 Labs: Abnormal Lab Results - Last 24 Hours (Table) 05/21/17 05/21/17 Range/Units 09:20 09:20 RBC 3.47 L (4.30-5.90) m/uL Hgb 11.4 L (13.0-17.5) gm/dL Hct 35.3 L (39.0-53.0) % MCV 101.5 H (80.0-100.0) fL Potassium 3.3 L (3.5-5.1) mmol/L BUN <2 L (9-20) mg/dL Creatinine 0.56 L (0.66-1.25) mg/dL Glucose 121 H (74-99) mg/dL Assessment and Plan (1) Acute pancreatitis Narrative/Plan: Suspect alcohol pancreatitis Status: Acute (2) ETOH abuse Status: Acute Plan: 1. Alcohol abstinence. Discharge per medicine. No further workup. Low-fat diet. We'll sign off. Assessment and plan a care discussed with Dr. Henao.
--- NOTE | 2017-05-21 12:21 | P.DS ---
Providers Date of admission: 05/18/17 18:26 Attending physician: Amaury Berry Consults: 05/18/17 20:12 Consult Physician Routine Consulting Provider: Alberto Cabezas Consult Reason/Comments: anxiety Do you want consulting provider notified?: Yes 05/18/17 21:18 Consult Physician Routine Consulting Provider: Aemlia Henao Consult Reason/Comments: pancreatitis Do you want consulting provider notified?: Yes Primary care physician: [facility] Course: 41-year-old gentleman who was receiving substance abuse rehab in [place] was admitted with abdominal pain and features of acute on chronic pancreatitis. Patient had history of EtOH. History of treated symptomatically. Patient improved and was able to tolerate a diet and his lipase improved to normal. The patient be discharged in a stable condition with guarded prognosis. Patient is advised bland diet and continued follow-up with the primary physician. On exam vitals stable. Cardio S1 and S2 normal. Respirator system. Clear to auscultation. Abdomen soft nontender. Patient be medically cleared for rehab at this time. Final diagnosis 1. Acute on chronic pancreatitis. Secondary to EtOH. 2. History of EtOH. 3. Increased amylase and lipase. 4. Increased WBC reactive. 5. Anemia possibly secondary to chronic disease. 6. History of anxiety. Patient Condition at Discharge: Fair Plan - Discharge Summary New Discharge Prescriptions: New Metoprolol Tartrate [Lopressor] 12.5 mg PO TID #90 tab Pantoprazole [Protonix] 40 mg PO AC-BID #60 tab Continue Folic Acid 1 mg PO DAILY Cholecalciferol [Vitamin D3] 1,000 unit PO DAILY Sucralfate [Carafate] 1 gm PO QID Nicotine 7Mg/24Hr Patch [Habitrol] 1 patch TRANSDERM DAILY Gabapentin 600 mg PO TID Thiamine [Vitamin B-1] 100 mg PO DAILY Multivitamins, Thera [Multivitamin (formulary)] 1 tab PO DAILY Calcium/Magnesium 1 tab PO TID Trimethobenzamide [Tigan] 300 mg PO Q6H PRN PRN Reason: Nausea Ondansetron [Zofran] 4 mg IM Q6H PRN PRN Reason: Nausea traZODone HCL 150 mg PO HS Ondansetron HCl [Zofran] 8 mg PO Q6H PRN PRN Reason: Nausea cloNIDine HCL [Catapres] 0.3 mg PO Q4H PRN PRN Reason: Blood Pressure - High Chlorpheniramine Maleate [Chlor-Trimeton] 4 mg PO Q4H PRN PRN Reason: Allergy Symptoms Acetaminophen [Tylenol 8 Hour] 650 mg PO Q4H PRN PRN Reason: Pain Or Fever > 100.5 Loratadine [Claritin] 10 mg PO DAILY PRN PRN Reason: Allergy Symptoms Loperamide [Imodium] 4 mg PO QID PRN PRN Reason: Loose Stool Tigan 200mg Im 200 mg IM Q6H PRN PRN Reason: Nausea Discontinued Propranolol HCl [Inderal Xl] 120 mg PO DAILY Ibuprofen [Motrin] 600 mg PO Q6H PRN PRN Reason: Pain Discharge Medication List Acetaminophen [Tylenol 8 Hour] 650 mg PO Q4H PRN 05/18/17 [History] Calcium/Magnesium 1 tab PO TID 05/18/17 [History] Chlorpheniramine Maleate [Chlor-Trimeton] 4 mg PO Q4H PRN 05/18/17 [History] Cholecalciferol [Vitamin D3] 1,000 unit PO DAILY 05/18/17 [History] Folic Acid 1 mg PO DAILY 05/18/17 [History] Gabapentin 600 mg PO TID 05/18/17 [History] Loperamide [Imodium] 4 mg PO QID PRN 05/18/17 [History] Loratadine [Claritin] 10 mg PO DAILY PRN 05/18/17 [History] Multivitamins, Thera [Multivitamin (formulary)] 1 tab PO DAILY 05/18/17 [History ] Nicotine 7Mg/24Hr Patch [Habitrol] 1 patch TRANSDERM DAILY 05/18/17 [History] Ondansetron HCl [Zofran] 8 mg PO Q6H PRN 05/18/17 [History] Ondansetron [Zofran] 4 mg IM Q6H PRN 05/18/17 [History] Sucralfate [Carafate] 1 gm PO QID 05/18/17 [History] Thiamine [Vitamin B-1] 100 mg PO DAILY 05/18/17 [History] Tigan 200mg Im 200 mg IM Q6H PRN 05/18/17 [History] Trimethobenzamide [Tigan] 300 mg PO Q6H PRN 05/18/17 [History] cloNIDine HCL [Catapres] 0.3 mg PO Q4H PRN 05/18/17 [History] traZODone HCL 150 mg PO HS 05/18/17 [History] Metoprolol Tartrate [Lopressor] 12.5 mg PO TID #90 tab 05/21/17 [Rx] Pantoprazole [Protonix] 40 mg PO AC-BID #60 tab 05/21/17 [Rx] Follow up Appointment(s)/Referral(s): Amelia Henao MD [STAFF PHYSICIAN] - 2 Weeks Zane Kapadia MD [Primary Care Provider] - 1 Week Ambulatory/Diagnostic Orders: Basic Metabolic Panel [LAB.AMB] Time Frame: 3 Days, Location: Determined By Patient Patient Instructions/Handouts: Pancreatitis (DC) Activity/Diet/Wound Care/Special Instructions: [facility] on discharge. No smoking, cessation information provided. No alcohol use. Low fat diet.
[2017-05-21 15:45] VITALS: BP 117/72; PULSE 86; TEMP 99.2
--- NOTE | 2017-06-07 20:34 | P.PN ---
Progress Note - Text Progress Note Date: 05/20/17 Patient is again sedated and unable to be interviewed.
== END 2017-05-21 16:27 | disposition designated cancer center or children's hospital (05) | DRG 282 ==
LOC: EC 13:49 → 4MS4W 18:26
PROVIDERS: ADMIT Hospitalist; ATTEND Hospitalist
DX: K85.20 Alcohol induced acute pancreatitis without necrosis or infection (principal); E83.52 Hypercalcemia; K27.9 Peptic ulcer, site unspecified, unspecified as acute or chronic, without hemorrhage or perforation; K86.0 Alcohol-induced chronic pancreatitis; F10.229 Alcohol dependence with intoxication, unspecified; F32.9 Major depressive disorder, single episode, unspecified; F17.200 Nicotine dependence, unspecified, uncomplicated; F41.9 Anxiety disorder, unspecified; E86.0 Dehydration; M54.12 Radiculopathy, cervical region; G40.909 Epilepsy, unspecified, not intractable, without status epilepticus; Z79.899 Other long term (current) drug therapy; Z88.0 Allergy status to penicillin
CPT/HCPCS: 36415; 74000; 76705; 80048; 80053; 81003; 82150; 82565; 83605; 83690; 84520; 85025; 85610; 85730; 96360; 96361; 96374; 96375; 96376; 99285

== ENCOUNTER → 2018-08-13 | Outpatient (CLI) | payer OTHER | END | disposition home or self-care (01) | LOC: LABMAIN 11:59 | PROVIDERS: ATTEND Internal Medicine | DX: Z53.9 Procedure and treatment not carried out, unspecified reason (principal) ==

== ENCOUNTER → 2018-08-16 | Outpatient (CLI) | payer OTHER | END | disposition home or self-care (01) | LOC: LABWHC1 15:51 | PROVIDERS: ATTEND Internal Medicine | DX: R44.3 Hallucinations, unspecified (principal) | CPT/HCPCS: 36415; 82140 ==

== ENCOUNTER 2018-08-31 16:44 | Inpatient (IN) | payer MEDICAID, OTHER ==
--- NOTE | 2018-08-31 18:03 | ED ---
Psych HPI - General Source: patient Mode of arrival: ambulatory <Jemima Mary - Last Filed: 09/07/18 17:04> <Sandra Emmanuel - Last Filed: 09/13/18 21:09> - General Chief Complaint: Psychiatric Symptoms Stated Complaint: SUICIDAL Time Seen by Provider: 08/31/18 17:07 - History of Present Illness Initial Comments: 43-year-old male patient presents to the emergency department today for evaluation of suicidal ideation. Patient states that he had a panic attack today. [place] the only way that he could feel better was to drink alcohol. He states that he did drink a pint of vodka. States that after this he started to have suicidal thoughts. States that he got into a suit, she states, and was going to hang himself with adult. Patient states that he at that time his mother was feelings and had her bring him here to the hospital. Patient states that he has had increased symptoms over the last week. States that a week ago he did have a hallucination that to 30 g reports her standing in his bedroom door, states that he couldn't get through. States that she then went out of the window onto the roof and he couldn't find a way down off the roof he did not cut his mother's bedroom underlying into her room. Patient states he has had hallucinations in the past and this was the worst episode. States he does take medication for depression, PTSD, and panic disorder. States that he does have a history of alcohol abuse, states his last drink before today was 6 months ago, he does attend AA meetings. Denies any history of suicide attempt. Patient denies any recent rash, fever, chills, shortness breath, chest pain, abdominal pain, nausea, vomiting, diarrhea, constipation, back pain, numbness, tingling, dizziness, weakness, hematuria, dysuria, urinary urgency, urinary frequency, headache, visual changes, or any other complaints. (Jemima Mary) - Related Data Home Medications Medication Instructions Recorded Confirmed Cholecalciferol [Vitamin D3] 1,000 unit PO DAILY 05/18/17 09/01/18 Folic Acid 1 mg PO DAILY 05/18/17 09/01/18 Multivitamins, Thera [Multivitamin 1 tab PO DAILY 05/18/17 09/01/18 (formulary)] Sucralfate [Carafate] 1 gm PO QID 05/18/17 09/01/18 Thiamine [Vitamin B-1] 100 mg PO DAILY 05/18/17 09/01/18 Albuterol Inhaler [Ventolin Hfa 1 puff INHALATION RT-DAILY 08/31/18 09/01/18 Inhaler] Magnesium Oxide 1,000 mg PO BID 08/31/18 09/01/18 Propranolol HCl [Inderal LA] 120 mg PO DAILY 08/31/18 09/01/18 levETIRAcetam [Keppra] 750 mg PO Q12HR 08/31/18 09/01/18 Previous Rx's Medication Instructions Recorded Pantoprazole [Protonix] 40 mg PO AC-BID #60 tab 05/21/17 Gabapentin [Neurontin] 300 mg PO TID #45 cap 09/07/18 Vortioxetine Hydrobromide 10 mg PO DAILY #30 tablet 09/07/18 [Trintellix] traZODone HCL [Desyrel] 50 mg PO HS PRN #30 tab 09/07/18 Allergies Allergy/AdvReac Type Severity Reaction Status Date / Time Penicillins Allergy Rash/Hives Verified 09/01/18 05:19 Review of Systems ROS Other: All systems not noted in ROS Statement are negative. <Jemima Mary - Last Filed: 09/07/18 17:04> ROS Other: All systems not noted in ROS Statement are negative. <Sandra Emmanuel - Last Filed: 09/13/18 21:09> ROS Statement: Those systems with pertinent positive or pertinent negative responses have been documented in the HPI. Past Medical History Past Medical History: Hypertension, Seizure Disorder Additional Past Medical History / Comment(s): ulcer, in rehab for etoh abuse History of Any Multi-Drug Resistant Organisms: None Reported Past Surgical History: Ear Surgery Additional Past Surgical History / Comment(s): EGD Past Anesthesia/Blood Transfusion Reactions: No Reported Reaction Past Psychological History: Anxiety, Depression, PTSD Smoking Status: Current some day smoker Past Alcohol Use History: None Reported Past Drug Use History: None Reported - Past Family History Mother Family Medical History: Thyroid Disorder Father Additional Family Medical History / Comment(s): ETOH <Jemima Mary - Last Filed: 09/07/18 17:04> General Exam Limitations: no limitations General appearance: alert, in no apparent distress, other (This is a well- developed, well-nourished adult male patient in no acute distress. Vital signs upon presentation are temperature 98.3F, pulse 85, respirations 18, blood pressure 134/89, pulse ox 98% on room air.) Eye exam: Present: normal appearance, PERRL, EOMI. Absent: scleral icterus, conjunctival injection, periorbital swelling ENT exam: Present: normal exam, normal oropharynx, mucous membranes moist Respiratory exam: Present: normal lung sounds bilaterally. Absent: respiratory distress, wheezes, rales, rhonchi, stridor Cardiovascular Exam: Present: regular rate, normal rhythm, normal heart sounds. Absent: systolic murmur, diastolic murmur, rubs, gallop, clicks GI/Abdominal exam: Present: soft, normal bowel sounds. Absent: distended, tenderness, guarding, rebound, rigid Neurological exam: Present: alert, oriented X3, CN II-XII intact Psychiatric exam: Present: normal affect, normal mood Skin exam: Present: warm, dry, intact, normal color. Absent: rash <Jemima Mary - Last Filed: 09/07/18 17:04> Vital Signs 08/31/18 09/01/18 09/01/18 17:05 00:24 05:12 Temperature 98.3 F 98.8 F Pulse Rate 85 107 H 80 Respiratory 18 18 18 Rate Blood Pressure 134/89 123/86 126/84 O2 Sat by Pulse 98 99 98 Oximetry Medical Decision Making - Lab Data Result diagrams: 09/01/18 09:32 09/01/18 09:32 <Jemima Mary - Last Filed: 09/07/18 17:04> - Lab Data Result diagrams: 09/01/18 09:32 09/01/18 09:32 <Sandra Emmanuel - Last Filed: 09/13/18 21:09> - Medical Decision Making Patient was seen and evaluated by emergency psychiatric services, [facility] from inpatient mission at this time. He'll be transferred to the mental health unit (Jemima Mary) I was available for consultation in the emergency department. The history and physical exam were done by the midlevel provider. I was consulted for this patient's care. I reviewed the case with the midlevel provider and based on their presentation of the patient, I agree with the assessment, medical decision making and plan of care as documented. (Sandra Emmanuel) - Lab Data Lab Results 08/31/18 Range/Units 19:12 Urine Opiates Screen Not Detected (NotDetected) Ur Oxycodone Screen Not Detected (NotDetected) Urine Methadone Screen Not Detected (NotDetected) Ur Propoxyphene Screen Not Detected (NotDetected) Ur Barbiturates Screen Not Detected (NotDetected) U Tricyclic Antidepress Not Detected (NotDetected) Ur Phencyclidine Scrn Not Detected (NotDetected) Ur Amphetamines Screen Not Detected (NotDetected) U Methamphetamines Scrn Not Detected (NotDetected) U Benzodiazepines Scrn Not Detected (NotDetected) Urine Cocaine Screen Not Detected (NotDetected) U Marijuana (THC) Screen Not Detected (NotDetected) Disposition - Out of Hospital Transfer - Req. Specs Out of Hospital Transfer - Requested Specifics: Psychiatric Non-ICU ([facility]) <Jemima Mary - Last Filed: 09/07/18 17:04> <Sandra Emmanuel - Last Filed: 09/13/18 21:09> Clinical Impression: Suicidal ideation Disposition: TRANSFER TO PSYCH HOSP/UNIT Condition: Stable
[2018-08-31 20:45] LABS: Amphetamine Screen,Urine Not Detected (NotDetected); Barbiturate Screen,Urine Not Detected (NotDetected); Benzodiazepines Screen,Urine Not Detected (NotDetected); Cocaine Screen,Urine Not Detected (NotDetected); Methadone Screen, Urine Not Detected (NotDetected); Opiate Screen,Urine Not Detected (NotDetected); Oxycodone Screen, Urine Not Detected (NotDetected); Phencyclidine Screen,Urine Not Detected (NotDetected); Tricyclic Antidepressant,Urine Not Detected (NotDetected); Urn Cannabinoid Scrn Not Detected (NotDetected)
[2018-08-31] MEDS ORDERED: GABAPENTIN 300 MG CAP PO STA (21:08)
[2018-08-31] MEDS ORDERED: SUCRALFATE 1 GM TAB PO STA (21:08)
[2018-08-31] MEDS ORDERED: ONDANSETRON ODT 4 MG TAB PO STA (22:20)
[2018-09-01] MEDS ORDERED: ONDANSETRON 4 MG/2 ML VIAL IM STA (00:27)
[2018-09-01] MEDS ORDERED: SODIUM CHLORIDE 0.9% 1,000 ML IV ONE (01:15)
[2018-09-01] MEDS ORDERED: LORazepam 2 MG/ML INJ IV STA ×2 (01:15→02:44)
[2018-09-01] MEDS ORDERED: ZIPRASIDONE 20 MG VIAL IM PRN (04:55)
[2018-09-01] MEDS ORDERED: MAGNESIUM HYDROXIDE 2,400 MG/10 ML CUP PO PRN (04:55)
[2018-09-01] MEDS ORDERED: MAG HYDROX/AL HYDROX/SIMETH 30 ML CUP PO PRN (04:55)
[2018-09-01] MEDS ORDERED: ALBUTEROL INHALER 60 PUFF/8 GM INHALER INHALATION PRN (04:58)
[2018-09-01] MEDS ORDERED: LORazepam 2 MG/ML INJ IM PRN (05:00)
[2018-09-01] MEDS ORDERED: LORazepam 0.5 MG TAB PO PRN (05:00)
[2018-09-01] MEDS ORDERED: LORazepam 2 MG/ML INJ IM STA (06:02)
[2018-09-01] MEDS: NICOTINE 7MG/24HR PATCH TRANSDERM SCH (07:54)
[2018-09-01] MEDS ORDERED: levETIRAcetam 250 MG TAB PO SCH (09:00)
[2018-09-01] MEDS: ACETAMINOPHEN TAB 325 MG TAB PO PRN ×2 (09:55→16:07)
[2018-09-01 10:12] LABS: ALT 55 U/L (21-72); AST 129 U/L (17-59); Albumin 4.7 g/dL (3.5-5.0); Alkaline Phosphatase 78 U/L (38-126); Anion Gap 17 mmol/L; Bilirubin, Delta 0.5 mg/dL (0.0-0.2); Bilirubin,Unconjugated 1.1 mg/dL (0.0-1.1); Blood Urea Nitrogen 9 mg/dL (9-20); Calcium 9.6 mg/dL (8.4-10.2); Carbon Dioxide 23 mmol/L (22-30); Chloride 102 mmol/L (98-107); Cholesterol 226 mg/dL (<200); Glucose 84 mg/dL (74-99); HDL Cholesterol 81 mg/dL (40-60); LDL Cholesterol,Calculated 115 mg/dL (0-99); Potassium 4.5 mmol/L (3.5-5.1); Sodium 142 mmol/L (137-145); Total Bilirubin 1.6 mg/dL (0.2-1.3); Triglycerides 151 mg/dL (<150)
[2018-09-01 10:27] LABS: Basophils % (A) 0 %; Eosinophils % (A) 1 %; HCT 41.4 % (39.0-53.0); HGB 13.3 gm/dL (13.0-17.5); Lymphocytes # (A) 1.5 k/uL (1.0-4.8); Lymphocytes % (A) 30 %; MCH 31.9 pg (25.0-35.0); MCHC 32.2 g/dL (31.0-37.0); MCV 99.1 fL (80.0-100.0); Monocytes # (A) 0.4 k/uL (0-1.0); Monocytes % (A) 8 %; Neutrophils # (A) 2.8 k/uL (1.3-7.7); Neutrophils % (A) 57 %; Platelet Count 126 k/uL (150-450); RBC 4.17 m/uL (4.30-5.90); RDW 12.7 % (11.5-15.5); WBC 4.8 k/uL (3.8-10.6)
--- NOTE | 2018-09-01 11:43 | P.HP ---
Psychiatric H&P - . History & Physical: Allergies Allergy/AdvReac Type Severity Reaction Status Date / Time Penicillins Allergy Rash/Hives Verified 09/01/18 05:19 Vital Signs Temp 98.4 F 09/01/18 05:21 Pulse 112 H 09/01/18 05:21 Resp 16 09/01/18 05:21 BP 120/76 09/01/18 05:21 Pulse Ox 97 09/01/18 05:21 Intake & Output 08/31/18 09/01/18 09/01/18 18:59 06:59 18:59 Weight 81.647 kg Laboratory Last Values WBC 4.8 k/uL (3.8-10.6) 09/01/18 09:32 RBC 4.17 m/uL (4.30-5.90) L 09/01/18 09:32 Hgb 13.3 gm/dL (13.0-17.5) 09/01/18 09:32 Hct 41.4 % (39.0-53.0) 09/01/18 09:32 MCV 99.1 fL (80.0-100.0) 09/01/18 09:32 MCH 31.9 pg (25.0-35.0) 09/01/18 09:32 MCHC 32.2 g/dL (31.0-37.0) 09/01/18 09:32 RDW 12.7 % (11.5-15.5) 09/01/18 09:32 Plt Count 126 k/uL (150-450) L 09/01/18 09:32 Neutrophils % 57 % 09/01/18 09:32 Lymphocytes % 30 % 09/01/18 09:32 Monocytes % 8 % 09/01/18 09:32 Eosinophils % 1 % 09/01/18 09:32 Basophils % 0 % 09/01/18 09:32 Neutrophils # 2.8 k/uL (1.3-7.7) 09/01/18 09:32 Lymphocytes # 1.5 k/uL (1.0-4.8) 09/01/18 09:32 Monocytes # 0.4 k/uL (0-1.0) 09/01/18 09:32 Eosinophils # 0.0 k/uL (0-0.7) 09/01/18 09:32 Basophils # 0.0 k/uL (0-0.2) 09/01/18 09:32 Sodium 142 mmol/L (137-145) 09/01/18 09:32 Potassium 4.5 mmol/L (3.5-5.1) 09/01/18 09:32 Chloride 102 mmol/L (98-107) 09/01/18 09:32 Carbon Dioxide 23 mmol/L (22-30) 09/01/18 09:32 Anion Gap 17 mmol/L 09/01/18 09:32 BUN 9 mg/dL (9-20) 09/01/18 09:32 Creatinine 0.73 mg/dL (0.66-1.25) 09/01/18 09:32 Est GFR (CKD-EPI)AfAm >90 (>60 ml/min/1.73 sqM) 09/01/18 09:32 Est GFR (CKD-EPI)NonAf >90 (>60 ml/min/1.73 sqM) 09/01/18 09:32 Glucose 84 mg/dL (74-99) 09/01/18 09:32 Calcium 9.6 mg/dL (8.4-10.2) 09/01/18 09:32 Total Bilirubin 1.6 mg/dL (0.2-1.3) H 09/01/18 09:32 Conjugated Bilirubin 0.0 mg/dL (0.0-0.3) 09/01/18 09:32 Unconjugated Bilirubin 1.1 mg/dL (0.0-1.1) 09/01/18 09:32 Delta Bilirubin 0.5 mg/dL (0.0-0.2) H 09/01/18 09:32 AST 129 U/L (17-59) H 09/01/18 09:32 ALT 55 U/L (21-72) 09/01/18 09:32 Alkaline Phosphatase 78 U/L (38-126) 09/01/18 09:32 Total Protein 8.0 g/dL (6.3-8.2) 09/01/18 09:32 Albumin 4.7 g/dL (3.5-5.0) 09/01/18 09:32 Triglycerides 151 mg/dL (<150) H 09/01/18 09:32 Cholesterol 226 mg/dL (<200) H 09/01/18 09:32 LDL Cholesterol, Calc 115 mg/dL (0-99) H 09/01/18 09:32 HDL Cholesterol 81 mg/dL (40-60) H 09/01/18 09:32 TSH 1.910 mIU/L (0.465-4.680) 09/01/18 09:32 Urine Opiates Screen Not Detected (NotDetected) 08/31/18 19:12 Ur Oxycodone Screen Not Detected (NotDetected) 08/31/18 19:12 Urine Methadone Screen Not Detected (NotDetected) 08/31/18 19:12 Ur Propoxyphene Screen Not Detected (NotDetected) 08/31/18 19:12 Ur Barbiturates Screen Not Detected (NotDetected) 08/31/18 19:12 U Tricyclic Antidepress Not Detected (NotDetected) 08/31/18 19:12 Ur Phencyclidine Scrn Not Detected (NotDetected) 08/31/18 19:12 Ur Amphetamines Screen Not Detected (NotDetected) 08/31/18 19:12 U Methamphetamines Scrn Not Detected (NotDetected) 08/31/18 19:12 U Benzodiazepines Scrn Not Detected (NotDetected) 08/31/18 19:12 Urine Cocaine Screen Not Detected (NotDetected) 08/31/18 19:12 U Marijuana (THC) Screen Not Detected (NotDetected) 08/31/18 19:12 09/01/18 11:11 IDENTIFYING DATA: This patient is a 43 year old but male who was admitted to the mental health unit for acute suicidal ideation. HPI: The patient presented to the emergency room intoxicated with alcohol but making suicidal statements. He reported having thoughts of hanging himself. He felt he could not manage his own safety and required admission. He reported having difficulty with sleep appetite had been poor. He reported having a severe panic attack which was overwhelming he began using alcohol and then felt suicidal. He has been having panic attacks more often over the last 2 years. They appear to be classic in nature. He reports no homicidal ideation. He reports feeling depressed and indicates that he has had a depressive episode ever since May when he learned his best friend in [place] committed suicide. He states that the last time they talked on the phone he had to abbreviate the conversation and has some subsequent guilt. Our session was limited today due to him not feeling well and wanting to lay back down in his room. PAST PSYCHIATRIC HISTORY: This is the patient's first inpatient psychiatric admission, no history of suicide attempts, he has been prescribed Antabuse 250 mg daily Neurontin 600 mg 3 times a day. In the past he was on Prozac but did not like that medication and was on Depakote for unknown reasons. He does not currently work with an individual therapist or psychiatrist. PMH: Unspecified seizure disorder he states he's had 3 seizures in his life the last one was over 1 year ago he is on Keppra 750 mg twice a day. ALLERGIES:: Penicillin MEDICATIONS: As above CHEMICAL DEPENDENCY HISTORY: The patient reports using alcohol only weekly consuming 1/2-1 pint of vodka he does have a known history of alcohol use disorder. He states he was in [place] for inpatient chemical dependency treatment this past May for 28 days. He states that he was sober for 90 days prior to relapsing. He reports no use of marijuana or any illicit drugs FAMILY PSYCHIATRIC HISTORY: Unknown FAMILY CHEMICAL DEPENDENCY HISTORY: Unknown SOCIAL HISTORY: The patient is 43 years old he is for 26 years but has been for 4 years. He has no children he has 2 brothers. He currently resides with his mother and his uncle. 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 He is a high school graduate and states he earned a bachelors in drama from [place] [employer]. No history of service. He is originally from the [facility]. Legal history and abuse history unknown due to limited time with him today. MENTAL STATUS EXAM: The patient is a male appearing his stated age. He is markedly disheveled he is dressed in hospital gowns. He appears tremulous in general and demonstrates tremor with his arms outstretched. He indicates his mood is depressed and anxious he has hopeless thoughts he presented with suicidal ideation. He feels he is able to keep himself safe here in the hospital. He reports no homicidal ideation. He endorses no auditory hallucinations but states he recently had visual hallucinations of 4 figures in his room looking like the grim reaper. He states this may have been due to sleep deprivation. He is experiencing no visual hallucinations at this time. He endorses no specific delusions. Thought process is linear he demonstrates no tangential thinking loose associations or flight of ideas he does not appear hypomanic or manic. He demonstrates no verbal or physical aggressiveness. He is oriented to person place and date and is able to spell world backwards after 2 trials. STRENGTHS/WEAKNESSES: Drinks: Willingness to receive treatment voluntarily housing weaknesses: Alcohol use suicidal ideation INTELLECTUAL FUNCTIONING: Average to above average IMPRESSIONS: [] 1. Major depressive disorder recurrent severe, anxiety unspecified, alcohol use disorder 2. Reported seizure disorder PLAN: Patient has been admitted to the mental health unit voluntarily. We reviewed his presenting symptoms and treatment options. He indicates that he has only been drinking weekly and therefore should not be going through alcohol withdrawal. His current symptoms may be due to alcohol use in the context of Antabuse. Vital signs reviewed we are following see were protocol. Ativan is available every 2 hours for withdrawal symptoms. We will continue his Keppra 750 mg twice daily. Lab results reviewed. He will be seen by internal medicine for routine history and physical exam. Social work will meet with him to complete a psychosocial assessment. We will monitor him for safety. We will involve his mother in treatment and discharge planning as he will allow. Once his physical symptoms have stabilized we will likely start him on an antidepressant after we discussed options.
[2018-09-01] MEDS ORDERED: GABAPENTIN 300 MG CAP PO SCH (12:30)
[2018-09-01] MEDS: LORazepam 2 MG/ML INJ IM PRN ×5 (12:57→23:15)
[2018-09-01] MEDS: PROPRANOLOL LA 60 MG CAP.SA.24H PO SCH (13:06)
[2018-09-01] MEDS: PANTOPRAZOLE 40 MG TABLET PO SCH ×3 (13:06→19:12)
[2018-09-01] MEDS: THIAMINE 100 MG TAB PO SCH (13:06)
[2018-09-01 18:39] LABS: Hemoglobin A1C 5.3 % (4.0-6.0)
--- NOTE | 2018-09-01 21:06 | CONS ---
CONSULTATION DATE OF CONSULTATION: 09/01/2018 REASON FOR CONSULTATION: Medical management requested by Dr. Olsen. CONSULTATION: This is a 43-year-old patient who follows with Dr. Kapadia. Chronic stable medical conditions include peptic ulcer disease, seizure disorder, neck radiculopathy, chronic alcoholism. The patient also does smoke cigarettes. The patient presented to the ER when he became more depressed, suicidal. Patient has continued to drink quite a bit of alcohol, and he wanted to put a belt around his neck, then told his mother that he needed to get help and decided to present to the hospital. Patient has baseline tremulousness. Patient has been drinking for a long time. He does get heartburn. 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 Patient was admitted through the ER to the psychiatry unit. REVIEW OF SYSTEMS: CONSTITUTIONAL: None. HEENT: None. RESPIRATORY: None. CARDIOVASCULAR: None. GASTROINTESTINAL: Heartburn. GENITOURINARY: None. MUSCULOSKELETAL: Neck pain, chronic. DERMATOLOGICAL: None. HEMATOLOGICAL: None. LYMPHATICS: None. PSYCHIATRY: Anxious, depressed. NEUROLOGICAL: Tremors are present. PAST MEDICAL HISTORY: 1. Hypertension. 2. Seizure. 3. Peptic ulcer disease. 4. Chronic alcoholism. PAST SURGICAL HISTORY: EGD. PSYCH HISTORY: Anxiety, depression, PTSD. SOCIAL HISTORY: Smoked a pack a day for many years; down to a few cigarettes a day. Drinks anywhere from half to one pint of vodka a day. Lives with his mother. 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 FAMILY HISTORY: Thyroid disorder and alcoholism. HOME MEDICATIONS: 1. Keppra 750 mg q.12. 2. Thiamine 100 mg p.o. daily. 3. Carafate. 4. Inderal LA 120 mg daily. 5. Protonix 40 mg b.i.d. 6. Multivitamin. 7. Magnesium oxide 1000 mg p.o. b.i.d. 8. Gabapentin 600 mg t.i.d., taken for his mood. 9. Folic acid 1 mg p.o. daily. 10.Antabuse. 11.Vitamin D3. 12.Ventolin HFA 1 puff daily. ALLERGIES: PENICILLIN. PHYSICAL EXAMINATION: Temperature 98.4, pulse 112, respiration 16, blood pressure 120/76, pulse ox 97% on room air. GENERAL APPEARANCE: Average build. Sitting up, very anxious-appearing with mild tremors. EYES: Pupils equal. Conjunctivae normal. HEENT: External appearance of nose and ears normal. Oral cavity normal. NECK: JVD not raised. Mass not palpable. RESPIRATORY: Effort normal. LUNGS: Slightly decreased breath sounds. CARDIOVASCULAR: First and second sounds normal. No edema. ABDOMEN: Soft, non-tender. Liver and spleen not palpable. LYMPHATIC: No lymph node palpable in neck or axillae. PSYCHIATRY: Alert and oriented x3. Mood and affect anxious-appearing. NEUROLOGICAL: Pupils equal. Cranial nerves grossly intact. Mild tremors are present. INVESTIGATIONS: White count 4.8, hemoglobin 13.3, potassium 4.5, AST 129, LDL 115, TSH 1.9. ASSESSMENT: 1. Major depression, recurrent, severe. 2. Anxiety, unspecified. 3. Chronic alcohol disorder. 4. Early alcohol withdrawal. 5. Peptic ulcer disease. 6. Chronic seizure disorder. 7. Chronic nicotine dependence. Patient is a cigarette smoker. PLAN: Patient's Keppra will be resumed. Other home medications are resumed. Will hold off Carafate, as that actually interferes with absorption of medications. Patient should be on a CIWA scale. Will watch closely for DTs. If okay with Psychiatry, patient can be put on a long-acting benzodiazepine like Valium and then can be tapered off. Patient advised against smoking, given a nicotine patch. Patient to continue with Protonix. Thank you, Dr. Olsen. MMMERCEDES / MAGGIEN: [id number] /
[2018-09-02] MEDS: LORazepam 1 MG TAB PO PRN ×7 (01:38→22:05)
[2018-09-02] MEDS: THIAMINE 100 MG TAB PO SCH (08:20)
[2018-09-02] MEDS: PANTOPRAZOLE 40 MG TABLET PO SCH ×2 (08:20→17:27)
[2018-09-02] MEDS: PROPRANOLOL LA 60 MG CAP.SA.24H PO SCH (08:20)
[2018-09-02] MEDS: NICOTINE 7MG/24HR PATCH TRANSDERM SCH (08:25)
--- NOTE | 2018-09-02 10:55 | P.PN ---
Progress Note - Text Interval history: The patient is found at the front office administrator he follows me to an interview room. He indicates that he continues to feel quite nauseous. He last vomited yesterday after lunch. He indicates he was able to eat dinner and did not vomit afterwards. He has been feeling tired however he has been receiving Ativan regularly for elevated CIWA scores. He did not attend groups yesterday he states he will attempt to today piece feeling well enough. We discussed deferring the initiation of an antidepressant until he is feeling better physically and he is agreeable. Mental status exam: The patient is alert he is ambulating slowly but he is more steady on his feet. He is dressed in hospital gowns. He has a disheveled appearance with impaired hygiene. The amplitude of his tremulous activity has decreased. Eye contact is intermittent. Speech is fluent spontaneous nonpressured. He reports feeling depressed and anxious with some hopeless thinking. He indicates feeling safe here in the hospital. No homicidal ideation reported. Reports having no auditory or visual hallucinations. He endorses no specific delusions there is no observed evidence of psychosis. He demonstrates no tangential thinking loose associations or flight of ideas. He demonstrates no verbal or physical aggressiveness. Plan: The patient will continue on the Ativan and we will continue monitoring his CIWA scores. We will initiate an antidepressant once his physical symptoms have improved specifically his nausea. He is encouraged to participate in the milieu. We will monitor him for safety.
[2018-09-02] MEDS: FOLIC ACID 1 MG TAB PO SCH (12:05)
[2018-09-03] MEDS: LORazepam 1 MG TAB PO PRN ×4 (00:10→21:35)
[2018-09-03] MEDS: NICOTINE 7MG/24HR PATCH TRANSDERM SCH (08:29)
[2018-09-03] MEDS: PANTOPRAZOLE 40 MG TABLET PO SCH ×2 (08:30→21:41)
[2018-09-03] MEDS: THIAMINE 100 MG TAB PO SCH (08:30)
[2018-09-03] MEDS: PROPRANOLOL LA 60 MG CAP.SA.24H PO SCH (08:30)
[2018-09-03] MEDS ORDERED: LORazepam 1 MG TAB ONE (14:26)
[2018-09-03] MEDS ORDERED: PANTOPRAZOLE 40 MG TABLET PO ONE (14:26)
[2018-09-04] MEDS: LORazepam 1 MG TAB PO PRN ×3 (03:29→20:36)
[2018-09-04] MEDS ORDERED: ZIPRASIDONE 20 MG CAP PO STA (05:26)
[2018-09-04] MEDS: FOLIC ACID 1 MG TAB PO SCH ×2 (07:39→12:23)
[2018-09-04] MEDS: PANTOPRAZOLE 40 MG TABLET PO SCH ×2 (07:51→17:47)
[2018-09-04] MEDS: NICOTINE 7MG/24HR PATCH TRANSDERM SCH ×2 (07:51→07:58)
[2018-09-04] MEDS: THIAMINE 100 MG TAB PO SCH (07:51)
[2018-09-04] MEDS: PROPRANOLOL LA 60 MG CAP.SA.24H PO SCH ×2 (07:51→08:47)
--- NOTE | 2018-09-04 14:33 | P.PN ---
Progress Note - Text Progress Note Date: 09/04/18 IDENTIFICATION DATA: 43 year old male admitted to the mental health unit with alcohol intoxication and acute suicidal ideation. INTERVAL HISTORY: Patient claims he had a panic attack and tried to deal with it by drinking half a pint of vodka , felt suicidal but did not want to do anything, called his mother and was brought to the hospital. He reports history of anxiety due to being from his after being to her for 20 years. He also stated he is between jobs which is another stressor. He claims to have lonely and suicidal. He currently denies suicidal ideations and feels safe to back to live with his mother . He claims taking neurontin from his primary care physician and says it also helps him to some extent with his anxiety. He reports to have been tried on various medications in the past for depression and anxiety. He claims to have had seizures when he took wellbutrin. He is currently reluctant to be tried on any medications for depression or anxiety. He says so far ativan has been helping him and wants to be continued on it. He says he is no longer nauseous . He also says his visual hallucinations have subsided. MENTAL STATUS EXAMINATION: Patient appeared his stated age in fair grooming and hygiene. He is pleasant and co-operative. His speech and thought process are linear and goal directed. His mood is reported as good and affect appropriate. The patient is alert and oriented 4 and in no apparent distress. Denies auditory or visual hallucinations. Denies paranoia. Thought content is negative for suicidal or homicidal ideation. Insight and judgment are improving. ASSESSMENT AND PLAN: He claims to have had seizures when he took wellbutrin. He is currently reluctant to be tried on any medications for depression or anxiety. Monitor for safety and symptoms
[2018-09-04 20:26] LABS: Appearance,Urine Clear (Clear); Bilirubin,Urine Negative (Negative); Blood,Urine Negative (Negative); Color,Urine Yellow; Glucose,Urine (UA) Negative (Negative); Ketones,Urine Negative (Negative); Leukocyte Esterase,Urine Negative (Negative); Nitrite,Urine Negative (Negative); Protein,Urine Negative (Negative); Specific Gravity,Urine 1.007 (1.001-1.035); Urobilinogen,Urine <2.0 mg/dL (<2.0)
[2018-09-05] MEDS: LORazepam 1 MG TAB PO PRN ×3 (02:32→21:12)
[2018-09-05] MEDS: PANTOPRAZOLE 40 MG TABLET PO SCH ×2 (08:31→16:35)
[2018-09-05] MEDS: NICOTINE 7MG/24HR PATCH TRANSDERM SCH (08:31)
[2018-09-05] MEDS: THIAMINE 100 MG TAB PO SCH (08:32)
[2018-09-05] MEDS: PROPRANOLOL LA 60 MG CAP.SA.24H PO SCH (08:32)
[2018-09-05] MEDS: FOLIC ACID 1 MG TAB PO SCH (08:32)
--- NOTE | 2018-09-05 11:16 | P.PN ---
Progress Note - Text Interval history: The patient is found in his room he follows me to an interview room he indicates that his moods improving in terms of depression but is still feels quite anxious. He has been using the Ativan for anxiety. We discussed initiating an antidepressant antianxiety medicine for him and the options were reviewed. He asks to have his Neurontin restarted as that has helped with anxiety in the past. He indicates he struggling here because he is not able to physically exercise he is not able to get fresh air and attend his AA groups that he was attending 5 days a week. He has been selectively attending groups. He indicates his sleep is slowly improving he reports getting 4-5 hours last night. Appetite improving. Mental status exam: The patient is alert he is dressed in his own clothing hygiene grooming are much improved. Eye contact is appropriate speech is fluent spontaneous nonpressured. He reports feeling anxious he feels mildly depressed no acute suicidal ideation intent or plan. Thought process is linear. Affect is more expressive. He is reporting no auditory or visual hallucinations there is no evidence of current psychosis. He demonstrates no verbal or physical aggressiveness. He is oriented to person place and date. He does have some hopelessness thinking but feels it is slowly improving. Plan: The patient will be started on Trintellix 10 mg daily for depressive and anxiety symptoms, we discussed the potential benefits and side effects of this medication and his questions were answered. We will restart Neurontin 300 mg 3 times daily as he has found this helpful for anxiety. Ativan will be changed to 1 mg up to twice daily as needed. He is encouraged to fully participate in the milieu. We will monitor him for safety. He is verbalizing a desire to be discharged as soon as possible. We are hoping that we will be able to accomplish are treatment goals by mid week.
[2018-09-05] MEDS: VORTIOXETINE HYDROBROMIDE 10 MG TABLET PO SCH (12:06)
[2018-09-05] MEDS: GABAPENTIN 300 MG CAP PO SCH ×3 (12:06→21:10)
[2018-09-06] MEDS: VORTIOXETINE HYDROBROMIDE 10 MG TABLET PO SCH (08:38)
[2018-09-06] MEDS: GABAPENTIN 300 MG CAP PO SCH ×3 (08:38→21:31)
[2018-09-06] MEDS: PANTOPRAZOLE 40 MG TABLET PO SCH ×2 (08:38→16:36)
[2018-09-06] MEDS: THIAMINE 100 MG TAB PO SCH (08:38)
[2018-09-06] MEDS: PROPRANOLOL LA 60 MG CAP.SA.24H PO SCH (08:38)
[2018-09-06] MEDS: LORazepam 1 MG TAB PO PRN ×2 (08:42→21:31)
[2018-09-06] MEDS: ACETAMINOPHEN TAB 325 MG TAB PO PRN ×2 (09:11→20:10)
[2018-09-06] MEDS ORDERED: traZODone HCL 50 MG TAB PO PRN (10:20)
[2018-09-06] MEDS ORDERED: LOPERAMIDE 2 MG CAP PO PRN (10:20)
--- NOTE | 2018-09-06 10:55 | P.PN ---
Progress Note - Text Interval history: The patient is found in group he follows me to an interview room. He states physically he is feeling better. He had some difficulty sleeping last night. Appetite stable. Anxiety feels more under control he is feeling less depressed. We reviewed his psychotropic medications. He indicates having some diarrhea with the Trintellix and requests Imodium. He is willing to continue with the medication to see if this is an acclamation issue. He is planning on returning back to his mother's house. He is willing to let social work confirm he is able to return. Mental status exam: The patient is alert he is dressed in his own clothing hygiene and grooming are good. Speech is fluent spontaneous nonpressured. He reports his mood is improving he reports hopelessness thinking is diminishing. Anxiety symptoms are improving. He reports no acute suicidal or homicidal ideation as he feels safe in the hospital. He is endorsing no auditory or visual hallucinations or any specific delusions. Eye contact is appropriate. He demonstrates no verbal or physical aggressiveness. Insight and judgment improving. Plan: The patient will continue on his current psychotropic medication we will monitor him for safety and encourage purchase the patient in the milieu. We will prescribe trazodone as needed for sleep and Imodium as needed for diarrhea. Social work will contact his mother to confirm he is able to return to her home. We will consider discharging him tomorrow.
[2018-09-06] MEDS: FOLIC ACID 1 MG TAB PO SCH (11:40)
[2018-09-07 06:49] VITALS: TEMP 98
[2018-09-07] MEDS: VORTIOXETINE HYDROBROMIDE 10 MG TABLET PO SCH (07:43)
[2018-09-07] MEDS: GABAPENTIN 300 MG CAP PO SCH (07:43)
[2018-09-07] MEDS: PROPRANOLOL LA 60 MG CAP.SA.24H PO SCH (07:43)
[2018-09-07] MEDS: THIAMINE 100 MG TAB PO SCH (07:43)
[2018-09-07] MEDS: PANTOPRAZOLE 40 MG TABLET PO SCH (07:43)
[2018-09-07] MEDS: LORazepam 1 MG TAB PO PRN ×2 (07:44→11:39)
[2018-09-07 07:46] VITALS: BP 104/69; PULSE 89; RESP 18
--- NOTE | 2018-09-07 09:23 | P.DS ---
Providers Date of admission: 09/01/18 04:50 Expected date of discharge: 09/07/18 Attending physician: Barrett Olsen Consults: 09/01/18 04:55 Consult Physician Routine Consulting Provider: Amaury Berry Consult Reason/Comments: For H & P for Medical Follow Up Do you want consulting provider notified?: Yes, Notify in am Primary care physician: Zane Kapadia - Discharge Diagnosis(es) (1) Major depressive disorder, recurrent severe without psychotic features Current Visit: Yes Status: Acute Priority: High (2) Alcohol use disorder Current Visit: Yes Status: Acute Priority: High (3) Anxiety Current Visit: Yes Status: Acute Priority: Medium Hospital Course: Brief summary of admission note: This patient is a 43-year-old but male who was admitted to the mental health unit for acute suicidal ideation. The patient presented to the emergency room intoxicated with alcohol and making suicidal statements. He reported thoughts of hanging himself. He described having poor sleep or appetite. He described having severe panic attacks. For full details please refer to my psychiatric evaluation dated 09/01/2018. Summary of hospital course: The patient was admitted to the mental health unit voluntarily. We reviewed his presenting symptoms and treatment options. The patient was managed with the [facility] protocol to prevent any alcohol withdrawal. It was also thought that he was having a reaction to use of alcohol on top of Antabuse. For the first 2 days he was physically ill vomiting and unable to participate in the milieu. We deferred starting the medication until he physically felt better and his nausea resolved. We reviewed his options and decided to initiate Trintellix 10 mg daily. He was restarted on Neurontin as he felt it helps his anxiety and trazodone was used as needed for sleep. The patient did participate in groups when he was able. He demonstrated no agitated behavior. He reported a progressive improvement of mood while here. He was seen by internal medicine for routine history and physical exam. He was offered an opportunity to have a support meeting involving his mother or any other close support but he declined that opportunity. He declined the opportunity to participate in inpatient chemical dependency treatment again. Mental status exam: The patient is alert he is dressed in his own clothing hygiene grooming are good. Eye contact is appropriate. He is pleasant and cooperative during the interaction. He reports his mood is good he denies having any acute suicidal or homicidal ideation intent or plan. He reports feeling more hopeful. He reports no auditory or visual hallucinations or any specific delusions. There is no observed evidence of psychosis. He demonstrates a linear thought process he demonstrates no tangential thinking loose associations or flight of ideas. Affect appears euthymic and is appropriately expressive. He demonstrates no verbal or physical aggressiveness. He continues to be fully oriented to person place and date. Impressions 1. Major depressive disorder recurrent severe without psychosis, anxiety unspecified, alcohol use disorder 2. History of seizure disorder, hypertension Plan: The patient will be discharged from the mental health unit today to return home residing with his mother. He will be following up at [facility] for outpatient care. He will continue on Trintellix 10 mg daily, trazodone 50 mg at bedtime as needed, Neurontin 300 mg 3 times daily. He is instructed to abstain from alcohol. He discussed that use of alcohol will precipitate mood symptoms and elevate his safety risk. He does not wish to participate in inpatient chemical dependency treatment at this time. He is instructed to return to the hospital with any acute safety concerns. At this time there is no imminent safety risk he is appropriate for transition outpatient care. Patient Condition at Discharge: Stable Plan - Discharge Summary New Discharge Prescriptions: New Gabapentin [Neurontin] 300 mg PO TID #45 cap traZODone HCL [Desyrel] 50 mg PO HS PRN #30 tab PRN Reason: Insomnia Vortioxetine Hydrobromide [Trintellix] 10 mg PO DAILY #30 tablet Continue Folic Acid 1 mg PO DAILY Cholecalciferol [Vitamin D3] 1,000 unit PO DAILY Sucralfate [Carafate] 1 gm PO QID Thiamine [Vitamin B-1] 100 mg PO DAILY Multivitamins, Thera [Multivitamin (formulary)] 1 tab PO DAILY Pantoprazole [Protonix] 40 mg PO AC-BID #60 tab Magnesium Oxide 1,000 mg PO BID levETIRAcetam [Keppra] 750 mg PO Q12HR Albuterol Inhaler [Ventolin Hfa Inhaler] 1 puff INHALATION RT-DAILY Propranolol HCl [Inderal LA] 120 mg PO DAILY Discontinued Gabapentin 600 mg PO TID Disulfiram [Antabuse] 250 mg PO DAILY Discharge Medication List Cholecalciferol [Vitamin D3] 1,000 unit PO DAILY 05/18/17 [History] Folic Acid 1 mg PO DAILY 05/18/17 [History] Multivitamins, Thera [Multivitamin (formulary)] 1 tab PO DAILY 05/18/17 [History ] Sucralfate [Carafate] 1 gm PO QID 05/18/17 [History] Thiamine [Vitamin B-1] 100 mg PO DAILY 05/18/17 [History] Pantoprazole [Protonix] 40 mg PO AC-BID #60 tab 05/21/17 [Rx] Albuterol Inhaler [Ventolin Hfa Inhaler] 1 puff INHALATION RT-DAILY 08/31/18 [ History] Magnesium Oxide 1,000 mg PO BID 08/31/18 [History] Propranolol HCl [Inderal LA] 120 mg PO DAILY 08/31/18 [History] levETIRAcetam [Keppra] 750 mg PO Q12HR 08/31/18 [History] Gabapentin [Neurontin] 300 mg PO TID #45 cap 09/07/18 [Rx] Vortioxetine Hydrobromide [Trintellix] 10 mg PO DAILY #30 tablet 09/07/18 [Rx] traZODone HCL [Desyrel] 50 mg PO HS PRN #30 tab 09/07/18 [Rx] Follow up Appointment(s)/Referral(s): Zane Kapadia MD [Primary Care Provider] - 1-2 days
[2018-09-07] MEDS: FOLIC ACID 1 MG TAB PO SCH (11:38)
== END 2018-09-07 14:01 | disposition home or self-care (01) | DRG 885 ==
LOC: EC 16:44 → 3MHU 09-01 04:50
PROVIDERS: ADMIT Psychiatry & Neurology Psychiatry; ATTEND Psychiatry & Neurology Psychiatry
DX: F33.2 Major depressive disorder, recurrent severe without psychotic features (principal); F10.239 Alcohol dependence with withdrawal, unspecified; R45.851 Suicidal ideations; G40.909 Epilepsy, unspecified, not intractable, without status epilepticus; F10.229 Alcohol dependence with intoxication, unspecified; F17.210 Nicotine dependence, cigarettes, uncomplicated; F41.0 Panic disorder [episodic paroxysmal anxiety]; F43.10 Post-traumatic stress disorder, unspecified; I10 Essential (primary) hypertension; K27.9 Peptic ulcer, site unspecified, unspecified as acute or chronic, without hemorrhage or perforation; R19.7 Diarrhea, unspecified; M54.12 Radiculopathy, cervical region; Z79.899 Other long term (current) drug therapy; Z88.0 Allergy status to penicillin; Z83.49 Family history of other endocrine, nutritional and metabolic diseases
CPT/HCPCS: 80053; 80061; 80306; 81003; 82075; 82248; 83036; 84443; 85025; 96361; 96372; 96374; 96376; 99285

== ENCOUNTER 2018-10-03 18:47 | Inpatient (IN) | payer MEDICAID, OTHER ==
[2018-10-03] MEDS ORDERED: SODIUM CHLORIDE 0.9% 1,000 ML IV STA (21:40)
[2018-10-03] MEDS ORDERED: diphenhydrAMINE 50 MG/ML 1 ML VIAL IVP STA (21:40)
[2018-10-03] MEDS ORDERED: SODIUM CHLORIDE 0.9% 500 ML 500 ML IV STA (21:40)
[2018-10-03] MEDS ORDERED: METOCLOPRAMIDE 5 MG/ML 2 ML VIAL IVP STA (21:40)
--- NOTE | 2018-10-03 21:52 | ED ---
Abdominal Pain HPI - General Source: patient, family Mode of arrival: wheelchair Limitations: no limitations <Jemima Mary - Last Filed: 10/04/18 02:14> <Sandra Emmanuel - Last Filed: 10/05/18 03:49> - General Chief Complaint: Abdominal Pain Stated Complaint: Vomiting, Nausea x1 week Time Seen by Provider: 10/03/18 20:44 - History of Present Illness Initial Comments: 43-year-old male patient presents to the emergency department today for evaluation of vomiting and abdominal pain. Patient states he's had intermittent symptoms over the last week. Patient states that current symptoms started at 03 100 this morning and have not stopped. States his been unable to keep down any food or fluids. States he has been dry heaving and vomiting of bilious emesis. States he has had cold sweats but denies any known fever. States he is having some upper abdominal discomfort. Patient denies any recent travel or sick contacts. Denies any history of abdominal surgery. States that he does have history of alcohol abuse but is currently attending AA, states it has been one week since his had any alcohol. Denies any street drug use. Denies any hematochezia or melena. Denies any diarrhea. Patient denies any recent rash, shortness breath, chest pain, back pain, numbness, tingling, dizziness, weakness, hematuria, dysuria, urinary urgency, urinary frequency, headache, visual changes, or any other complaints. (Jemima Mary) - Related Data Home Medications Medication Instructions Recorded Confirmed Cholecalciferol [Vitamin D3] 1,000 unit PO DAILY 05/18/17 10/03/18 Folic Acid 1 mg PO DAILY 05/18/17 10/03/18 Multivitamins, Thera [Multivitamin 1 tab PO DAILY 05/18/17 10/03/18 (formulary)] Sucralfate [Carafate] 1 gm PO QID 05/18/17 10/03/18 Thiamine [Vitamin B-1] 100 mg PO DAILY 05/18/17 10/03/18 Magnesium Oxide 1,200 mg PO BID 08/31/18 10/03/18 levETIRAcetam [Keppra] 750 mg PO Q12HR 08/31/18 10/03/18 traZODone HCL [Desyrel] 100 mg PO HS 10/03/18 10/03/18 Previous Rx's Medication Instructions Recorded Pantoprazole [Protonix] 40 mg PO AC-BID #60 tab 05/21/17 Vortioxetine Hydrobromide 10 mg PO DAILY #30 tablet 09/07/18 [Trintellix] Allergies Allergy/AdvReac Type Severity Reaction Status Date / Time Penicillins Allergy Rash/Hives Verified 10/03/18 20:52 Review of Systems ROS Other: All systems not noted in ROS Statement are negative. <Jemima Mary - Last Filed: 10/04/18 02:14> ROS Other: All systems not noted in ROS Statement are negative. <Sandra Emmanuel - Last Filed: 10/05/18 03:49> ROS Statement: Those systems with pertinent positive or pertinent negative responses have been documented in the HPI. Past Medical History Past Medical History: Hypertension, Seizure Disorder Additional Past Medical History / Comment(s): ulcer, in rehab for etoh abuse History of Any Multi-Drug Resistant Organisms: None Reported Past Surgical History: Ear Surgery Additional Past Surgical History / Comment(s): EGD Past Anesthesia/Blood Transfusion Reactions: No Reported Reaction Past Psychological History: Anxiety, Depression, PTSD Smoking Status: Current some day smoker Past Alcohol Use History: None Reported Past Drug Use History: None Reported - Past Family History Mother Family Medical History: Thyroid Disorder Father Additional Family Medical History / Comment(s): ETOH <Jemima Mary - Last Filed: 10/04/18 02:14> General Exam Limitations: no limitations General appearance: alert, in no apparent distress, other (This a well-developed , well-nourished adult male patient in no acute distress. Vital signs upon presentation are temperature 98.2F, pulse 129, respirations 22, blood pressure 129/83, pulse ox 100% on room air.) Eye exam: Present: normal appearance, PERRL, EOMI. Absent: scleral icterus, conjunctival injection, periorbital swelling ENT exam: Present: normal exam, normal oropharynx, mucous membranes moist Respiratory exam: Present: normal lung sounds bilaterally. Absent: respiratory distress, wheezes, rales, rhonchi, stridor Cardiovascular Exam: Present: regular rate, normal rhythm, normal heart sounds. Absent: systolic murmur, diastolic murmur, rubs, gallop, clicks GI/Abdominal exam: Present: soft, tenderness (midepigastric tenderness), normal bowel sounds. Absent: distended, guarding, rebound, rigid Neurological exam: Present: alert, oriented X3, CN II-XII intact Psychiatric exam: Present: normal affect, normal mood Skin exam: Present: warm, dry, intact, normal color. Absent: rash <Jemima Mary - Last Filed: 10/04/18 02:14> Vital Signs 10/03/18 10/03/18 10/03/18 19:16 23:10 23:27 Temperature 98.2 F 100.8 F H Pulse Rate 129 H 125 H 116 H Respiratory 22 16 20 Rate Blood Pressure 129/83 129/92 103/74 O2 Sat by Pulse 100 100 98 Oximetry 10/04/18 10/04/18 10/04/18 00:53 01:24 03:40 Temperature 100.6 F H 98.4 F Pulse Rate 117 H 110 H 100 Respiratory 20 17 16 Rate Blood Pressure 113/87 129/89 121/89 O2 Sat by Pulse 97 100 100 Oximetry Medical Decision Making - Lab Data Result diagrams: 10/03/18 21:30 10/03/18 21:30 - Radiology Data Radiology results: report reviewed <Jemima Mary - Last Filed: 10/04/18 02:14> - Lab Data Result diagrams: 10/04/18 11:09 10/04/18 11:09 <Sandra Emmanuel - Last Filed: 10/05/18 03:49> - Medical Decision Making 43-year-old male patient presents to the emergency department today for evaluation of vomiting and upper abdominal pain. Physical examination did reveal midepigastric and right upper quadrant tenderness. Labs reviewed and did reveal elevated white blood cell count at 13, did have elevated bilirubin at 3.6. Patient continued to have pain and vomiting despite given medications here in the emergency department for did obtain ultrasound of the right upper quadrant abdomen. Showed evidence of a enlarged gallbladder with a borderline dilated common bile duct at 7 mm. He did have positive Bundy sign. Given these findings and symptoms of admit for further evaluation by gastroenterology and surgery. There is concern for a calculus cholecystitis versus ascending colon tightness. We'll start IV antibiotics. He is ALLERGIC to penicillin so we will start Levaquin. My attending Dr. Emmanuel did speak to the on-call surgeon Dr. Miller. (Jemima Mary) I personally saw and examined the patient. I reviewed and agree with the mid- level provider findings including all diagnostic interpretations and treatment plans as written unless otherwise stated. I evaluated the patient, reviewed the chart and discussed patient care with Dr. Pereira who agrees with plan to admit the patient to medicine with Gen. surgery and GI on-call for further evaluation. (Sandra Emmanuel) - Lab Data Lab Results 10/03/18 10/03/18 10/03/18 Range/Units 21:30 21:30 21:30 WBC 13.3 H (3.8-10.6) k/uL RBC 4.94 (4.30-5.90) m/uL Hgb 16.1 (13.0-17.5) gm/dL Hct 46.4 (39.0-53.0) % MCV 93.9 D (80.0-100.0) fL MCH 32.5 (25.0-35.0) pg MCHC 34.6 (31.0-37.0) g/dL RDW 12.2 (11.5-15.5) % Plt Count 132 L (150-450) k/uL Neutrophils % 82 % Lymphocytes % 10 % Monocytes % 6 % Eosinophils % 1 % Basophils % 0 % Neutrophils # 10.9 H (1.3-7.7) k/uL Lymphocytes # 1.4 (1.0-4.8) k/uL Monocytes # 0.8 (0-1.0) k/uL Eosinophils # 0.1 (0-0.7) k/uL Basophils # 0.0 (0-0.2) k/uL PT 10.9 (9.0-12.0) sec INR 1.0 (<1.2) APTT 24.1 (22.0-30.0) sec Sodium 132 L (137-145) mmol/L Potassium 3.9 (3.5-5.1) mmol/L Chloride 85 L (98-107) mmol/L Carbon Dioxide 16 L (22-30) mmol/L Anion Gap 31 mmol/L BUN 18 (9-20) mg/dL Creatinine 1.07 (0.66-1.25) mg/dL Est GFR (CKD-EPI)AfAm >90 (>60 ml/min/1.73 sqM) Est GFR (CKD-EPI)NonAf 86 (>60 ml/min/1.73 sqM) Glucose 142 H (74-99) mg/dL Calcium 10.3 H (8.4-10.2) mg/dL Total Bilirubin 3.2 H (0.2-1.3) mg/dL AST 93 H (17-59) U/L ALT 46 (21-72) U/L Alkaline Phosphatase 96 (38-126) U/L Total Protein 9.8 H (6.3-8.2) g/dL Albumin 5.8 H (3.5-5.0) g/dL Amylase 72 (30-110) U/L Lipase 234 (23-300) U/L Urine Color Urine Appearance (Clear) Urine pH (5.0-8.0) Ur Specific [place] (1.001-1.035) Urine Protein (Negative) Urine Glucose (UA) (Negative) Urine Ketones (Negative) Urine Blood (Negative) Urine Nitrite (Negative) Urine Bilirubin (Negative) Urine Urobilinogen (<2.0) mg/dL Ur Leukocyte Esterase (Negative) Urine RBC (0-5) /hpf Urine WBC (0-5) /hpf Ur Squamous Epith Cells (0-4) /hpf Hyaline Casts (0-2) /lpf Urine Mucus (None) /hpf Influenza Type A RNA (Not Detectd) Influenza Type B (PCR) (Not Detectd) 10/03/18 10/03/18 Range/Units 23:25 23:35 WBC (3.8-10.6) k/uL RBC (4.30-5.90) m/uL Hgb (13.0-17.5) gm/dL Hct (39.0-53.0) % MCV (80.0-100.0) fL MCH (25.0-35.0) pg MCHC (31.0-37.0) g/dL RDW (11.5-15.5) % Plt Count (150-450) k/uL Neutrophils % % Lymphocytes % % Monocytes % % Eosinophils % % Basophils % % Neutrophils # (1.3-7.7) k/uL Lymphocytes # (1.0-4.8) k/uL Monocytes # (0-1.0) k/uL Eosinophils # (0-0.7) k/uL Basophils # (0-0.2) k/uL PT (9.0-12.0) sec INR (<1.2) APTT (22.0-30.0) sec Sodium (137-145) mmol/L Potassium (3.5-5.1) mmol/L Chloride (98-107) mmol/L Carbon Dioxide (22-30) mmol/L Anion Gap mmol/L BUN (9-20) mg/dL Creatinine (0.66-1.25) mg/dL Est GFR (CKD-EPI)AfAm (>60 ml/min/1.73 sqM) Est GFR (CKD-EPI)NonAf (>60 ml/min/1.73 sqM) Glucose (74-99) mg/dL Calcium (8.4-10.2) mg/dL Total Bilirubin (0.2-1.3) mg/dL AST (17-59) U/L ALT (21-72) U/L Alkaline Phosphatase (38-126) U/L Total Protein (6.3-8.2) g/dL Albumin (3.5-5.0) g/dL Amylase (30-110) U/L Lipase (23-300) U/L Urine Color Yellow Urine Appearance Clear (Clear) Urine pH 5.5 (5.0-8.0) Ur Specific [place] 1.021 (1.001-1.035) Urine Protein 2+ H (Negative) Urine Glucose (UA) Negative (Negative) Urine Ketones 4+ H (Negative) Urine Blood Trace H (Negative) Urine Nitrite Negative (Negative) Urine Bilirubin Negative (Negative) Urine Urobilinogen <2.0 (<2.0) mg/dL Ur Leukocyte Esterase Negative (Negative) Urine RBC <1 (0-5) /hpf Urine WBC 1 (0-5) /hpf Ur Squamous Epith Cells <1 (0-4) /hpf Hyaline Casts 28 H (0-2) /lpf Urine Mucus Rare H (None) /hpf Influenza Type A RNA Not Detected (Not Detectd) Influenza Type B (PCR) Not Detected (Not Detectd) - Radiology Data Two-view x-ray of the abdomen is obtained. Report was reviewed in its entirety. Impression by Dr. Villa shows nonobstructive bowel gas pattern. Ultrasound of the right upper quadrant was obtained. Report was reviewed in its entirety. Impression by Dr. Villa shows distended gallbladder. No shadowing stones, but title assistant does report a Bundy sign. Borderline dilated common bile duct. Recommend correlation with laboratory markers. Increased hepatic echogenicity most likely reflects steatosis. (Jemima Mary) Disposition Decision to Admit Reason: Admit from EC Decision Date: 10/04/18 Decision Time: 01:26 <Jemima Mary - Last Filed: 10/04/18 02:14> <Sandra Emmanuel - Last Filed: 10/05/18 03:49> Clinical Impression: Sepsis, Abdominal pain, Vomiting Disposition: ADMITTED IP TO THIS [facility] Condition: Serious
[2018-10-03 21:58] LABS: Basophils % (A) 0 %; Eosinophils # (A) 0.1 k/uL (0-0.7); Eosinophils % (A) 1 %; HCT 46.4 % (39.0-53.0); HGB 16.1 gm/dL (13.0-17.5); Lymphocytes # (A) 1.4 k/uL (1.0-4.8); Lymphocytes % (A) 10 %; MCH 32.5 pg (25.0-35.0); MCHC 34.6 g/dL (31.0-37.0); Mean Platelet Volume 7.4; Monocytes # (A) 0.8 k/uL (0-1.0); Monocytes % (A) 6 %; Neutrophils # (A) 10.9 k/uL (1.3-7.7); Neutrophils % (A) 82 %; Platelet Count 132 k/uL (150-450); RBC 4.94 m/uL (4.30-5.90); RDW 12.2 % (11.5-15.5); WBC 13.3 k/uL (3.8-10.6)
[2018-10-03 21:59] LABS: MCV 93.9 fL (80.0-100.0)
[2018-10-03 22:02] LABS: Partial Thromboplastin Time 24.1 sec (22.0-30.0); Prothrombin Time 10.9 sec (9.0-12.0)
[2018-10-03 22:05] LABS: ALT 46 U/L (21-72); AST 93 U/L (17-59); Albumin 5.8 g/dL (3.5-5.0); Alkaline Phosphatase 96 U/L (38-126); Amylase 72 U/L (30-110); Anion Gap 31 mmol/L; Blood Urea Nitrogen 18 mg/dL (9-20); Calcium 10.3 mg/dL (8.4-10.2); Carbon Dioxide 16 mmol/L (22-30); Chloride 85 mmol/L (98-107); Glucose 142 mg/dL (74-99); Lipase 234 U/L (23-300); Potassium 3.9 mmol/L (3.5-5.1); Sodium 132 mmol/L (137-145); Total Bilirubin 3.2 mg/dL (0.2-1.3); Total Protein 9.8 g/dL (6.3-8.2)
--- NOTE | 2018-10-03 22:41 | XR ---
EXAM: XR Abdomen, 2 Views CLINICAL HISTORY: ITS.REASON XR Reason: abdominal pain TECHNIQUE: Frontal view of the abdomen/pelvis with upright view of the abdomen. COMPARISON: 05/18/17. FINDINGS: Intraperitoneal space: No free air on limited examination excluding the upper abdomen. Gastrointestinal tract: Unremarkable. No dilation. Bones/joints: Mild lumbar levocurvature is again noted. IMPRESSION: Nonobstructive bowel gas pattern.
[2018-10-03] MEDS ORDERED: ONDANSETRON 4 MG/2 ML VIAL IVP STA (22:48)
[2018-10-03] MEDS ORDERED: ACETAMINOPHEN IV (For NPO) 1,000 MG in EMPTY BAG 1 BAG IVPB STA (23:31)
[2018-10-03 23:39] LABS: Appearance,Urine Clear (Clear); Bilirubin,Urine Negative (Negative); Blood,Urine Trace (Negative); Color,Urine Yellow; Glucose,Urine (UA) Negative (Negative); Hyaline Casts,Urine 28 /lpf (0-2); Ketones,Urine 4+ (Negative); Leukocyte Esterase,Urine Negative (Negative); Mucus,Urine Rare /hpf; Nitrite,Urine Negative (Negative); PH, Urine 5.5 (5.0-8.0); Protein,Urine 2+ (Negative); RBC,Urine <1 /hpf (0-5); Specific Gravity,Urine 1.021 (1.001-1.035); Squamous Epithelial Cell,Urine <1 /hpf (0-4); Urobilinogen,Urine <2.0 mg/dL (<2.0); WBC,Urine 1 /hpf (0-5)
--- NOTE | 2018-10-04 00:47 | US ---
EXAM: US Abdomen right upper quadrant CLINICAL HISTORY: ITS.REASON US Reason: Pain; Vomiting TECHNIQUE: Real-time ultrasound of the abdomen (RUQ) with image documentation. COMPARISON: No relevant prior studies available. FINDINGS: Liver: Coarsened and increased echogenicity throughout the liver parenchyma. No clear discrete mass. Gallbladder: Distended gallbladder without shadowing stones or findings of inflammation.. Common bile duct: 7 mm diameter is borderline dilated. This was not noted previously. No visualized intraductal stone. Recommend correlation with laboratory markers.. Pancreas: Unremarkable as visualized. Right kidney: No hydronephrosis. No clear mass. IMPRESSION: Distended gallbladder. No shadowing stones, but injection molding technician does report a Bundy sign. Borderline dilated common bile duct. Recommend correlation with laboratory markers. Increased hepatic echogenicity most likely reflects steatosis.
[2018-10-04] MEDS ORDERED: NALOXONE 0.4 MG/ML 1 ML VIAL IV PRN (01:04)
[2018-10-04] MEDS ORDERED: ACETAMINOPHEN TAB 325 MG TAB PO PRN (01:04)
[2018-10-04] MEDS ORDERED: LORazepam 2 MG/ML INJ IV STA (01:10)
[2018-10-04] MEDS ORDERED: LEVOFLOXACIN 750MG-D5W PMX 750 MG in DEXTROSE/WATER 1 150ML.BAG IVPB STA (01:13)
[2018-10-04] MEDS ORDERED: SODIUM CHLORIDE 0.9% 1,000 ML IV ONE (01:25)
[2018-10-04] MEDS: HYDROmorphone 0.5 MG/0.5 ML SYRINGE IVP PRN ×4 (04:10→23:08)
[2018-10-04] MEDS: ONDANSETRON 4 MG/2 ML VIAL IVP PRN (04:11)
[2018-10-04] MEDS: SODIUM CHLORIDE 0.9% 1,000 ML IV SCH ×4 (04:47→21:11)
[2018-10-04] MEDS ORDERED: LORazepam 2 MG/ML INJ IV PRN (08:38)
[2018-10-04] MEDS ORDERED: THIAMINE 100 MG/ML 2 ML VIAL IM STA (08:38)
[2018-10-04] MEDS: LORazepam 2 MG/ML INJ IV PRN ×7 (08:53→21:20)
--- NOTE | 2018-10-04 10:37 | P.CONS ---
History of Present Illness - Reason for Consult Consult date: 10/04/18 Abdominal pain hyperbilirubinemia Requesting physician: Amaury Berry - Chief Complaint Abdominal pain - History of Present Illness 43-year-old male with a history of alcohol abuse last drink more than a week ago presently attending AA meetings admitted with nausea vomiting abdominal pain that started Wednesday. Patient had a few episodes of emesis pink tinged without gross hematochezia or melena. Darker colored urine denies acholic stools. History of hepatitis A many years ago when residing in [facility]. Vaccinated for hepatitis B. No history of intravenous or illicit drug abuse. White count 13.3. Hemoglobin 16.1. Platelet 132. INR 1. BUN 18. Creatinine 1.0. Total bilirubin 3.2. AST 93. ALT 46. AP 96. Lipase 234. Albumin 5.8. Influenza not detected. T-max 100.8. Abdominal ultrasound distended gallbladder no stones. CBD 7 mm. Increased hepatic echogenicity most likely steatosis. Review of Systems Constitutional: Denies fever, chills, sweats, weight gain, or loss. HEENT: Negative for migraines, blurred vision or loss, earaches, drainage, tinnitus, oral mucosal lesions, dysphagia, or odynophagia. Cardiac: Negative for chest pain, arrhythmias, or palpitation. Respiratory: Negative for shortness of breath, hemoptysis, cough, or sputum production. Gastrointestinal: See HPI for pertinent findings. Genitourinary: Negative for hematuria, urgency, frequency, polyuria, dysuria, or penile discharge. Musculoskeletal: Negative for muscle aches, swelling, arthritis, and arthralgias. Neurologic: Negative for stroke or TIA. Endocrine: Negative for thyroid problems. Skin: Negative for rash or itching. Psychiatric: Negative history for depression and anxiety Past Medical History Past Medical History: Hypertension, Seizure Disorder Additional Past Medical History / Comment(s): ulcer, in rehab for etoh abuse History of Any Multi-Drug Resistant Organisms: None Reported Past Surgical History: Ear Surgery Additional Past Surgical History / Comment(s): EGD Past Anesthesia/Blood Transfusion Reactions: No Reported Reaction Past Psychological History: Anxiety, Depression, PTSD Smoking Status: Former smoker Past Alcohol Use History: None Reported Past Drug Use History: None Reported - Past Family History Mother Family Medical History: Thyroid Disorder Father Additional Family Medical History / Comment(s): ETOH Medications and Allergies Home Medications Medication Instructions Recorded Confirmed Type Cholecalciferol [Vitamin D3] 1,000 unit PO DAILY 05/18/17 10/03/18 History Folic Acid 1 mg PO DAILY 05/18/17 10/03/18 History Multivitamins, Thera [Multivitamin 1 tab PO DAILY 05/18/17 10/03/18 History (formulary)] Sucralfate [Carafate] 1 gm PO QID 05/18/17 10/03/18 History Thiamine [Vitamin B-1] 100 mg PO DAILY 05/18/17 10/03/18 History Pantoprazole [Protonix] 40 mg PO AC-BID #60 tab 05/21/17 10/03/18 Rx Magnesium Oxide 1,200 mg PO BID 08/31/18 10/03/18 History Propranolol HCl [Inderal LA] 120 mg PO DAILY 08/31/18 10/03/18 History levETIRAcetam [Keppra] 750 mg PO Q12HR 08/31/18 10/03/18 History Gabapentin [Neurontin] 300 mg PO TID #45 cap 09/07/18 10/03/18 Rx Vortioxetine Hydrobromide 10 mg PO DAILY #30 tablet 09/07/18 10/03/18 Rx [Trintellix] traZODone HCL [Desyrel] 100 mg PO HS 10/03/18 10/03/18 History Allergies Allergy/AdvReac Type Severity Reaction Status Date / Time Penicillins Allergy Rash/Hives Verified 10/03/18 20:52 Physical Exam Vitals: Vital Signs Temp Pulse Pulse Resp BP BP Pulse Ox 10/04/18 04:36 98.9 F 108 H 15 117/76 97 10/04/18 03:40 98.4 F 100 16 121/89 100 10/04/18 01:24 110 H 17 129/89 100 10/04/18 00:53 100.6 F H 117 H 20 113/87 97 10/03/18 23:27 100.8 F H 116 H 20 103/74 98 10/03/18 23:10 125 H 16 129/92 100 10/03/18 19:16 98.2 F 129 H 22 129/83 100 Intake and Output 10/03/18 10/04/18 10/04/18 22:59 06:59 14:59 Intake Total 1149 Balance 1149 Intake: Intake, IV Titration 1149 Amount Sodium Chloride 0.9% 1, 150 000 ml @ 150 mls/hr IV . Q6H40M [facility] Rx#:[id number] Sodium Chloride 0.9% 1, 999 000 ml @ 999 mls/hr IV . Q1H1M [facility] Rx#:[id number] Other: Weight 74.843 kg General appearance: The patient is alert, oriented, in no acute distress. HET: Head is normocephalic and atraumatic. Pupils are equal and reactive. Oropharynx is clear without lesions. Neck: Supple without lymphadenopathy. Trachea midline. Heart: S1 S2. Regular rate and rhythm. Lungs: No crackles or wheezes are heard. Abdomen: Soft, tenderness to the right upper quadrant and midepigastrium, nondistended with bowel sounds. No peritoneal signs. No palpable organomegaly or masses. Extremities: Normal skin color and turgor. No cyanosis, rash, ulceration, clubbing, or edema. Radial and pedal pulses are 2/4 bilaterally. Neurological: No focal deficits. Strength and sensation are grossly intact. Results CBC & Chem 7: 10/03/18 21:30 10/03/18 21:30 Labs: Abnormal Lab Results - Last 24 Hours (Table) 10/03/18 10/03/18 10/03/18 Range/Units 21:30 21:30 23:25 WBC 13.3 H (3.8-10.6) k/uL Plt Count 132 L (150-450) k/uL Neutrophils # 10.9 H (1.3-7.7) k/uL Sodium 132 L (137-145) mmol/L Chloride 85 L (98-107) mmol/L Carbon Dioxide 16 L (22-30) mmol/L Glucose 142 H (74-99) mg/dL Calcium 10.3 H (8.4-10.2) mg/dL Total Bilirubin 3.2 H (0.2-1.3) mg/dL AST 93 H (17-59) U/L Total Protein 9.8 H (6.3-8.2) g/dL Albumin 5.8 H (3.5-5.0) g/dL Urine Protein 2+ H (Negative) Urine Ketones 4+ H (Negative) Urine Blood Trace H (Negative) Hyaline Casts 28 H (0-2) /lpf Urine Mucus Rare H (None) /hpf US - abdomen: report reviewed (Dr. Dietrich) Assessment and Plan (1) Abdominal pain Narrative/Plan: 43-year-old male with a history of EtOH abuse admitted with acute upper abdominal pain nausea vomiting elevated liver enzymes suspect component of underlying acute alcohol hepatitis. Underlying biliary pathology cannot be excluded ultrasound imaging reported acalculus gallbladder distended with positive Bundy sign. Current Visit: Yes Status: Acute Code(s): R10.9 - UNSPECIFIED ABDOMINAL PAIN SNOMED Code(s): 07290397 (2) Elevated liver enzymes Current Visit: Yes Status: Acute Code(s): R74.8 - ABNORMAL LEVELS OF OTHER SERUM ENZYMES SNOMED Code(s): 024937328 (3) ETOH abuse Current Visit: No Status: Acute Code(s): F10.10 - ALCOHOL ABUSE, UNCOMPLICATED SNOMED Code(s): 40418833 Plan: 1. CBC CMP hepatitis screen today. Keep nothing by mouth except meds. IV antibiotics. GS consult. Thank you for this kind referral and the opportunity to participate in the care of your patient. This consultation was discussed with Dr. Dietrich. The impression and plan of care have been directed as dictated.
[2018-10-04 11:37] LABS: ALT 38 U/L (21-72); AST 68 U/L (17-59); Albumin 4.2 g/dL (3.5-5.0); Alkaline Phosphatase 56 U/L (38-126); Anion Gap 13 mmol/L; Bilirubin, Delta 0.4 mg/dL (0.0-0.2); Bilirubin,Unconjugated 1.6 mg/dL (0.0-1.1); Blood Urea Nitrogen 13 mg/dL (9-20); Calcium 8.2 mg/dL (8.4-10.2); Carbon Dioxide 23 mmol/L (22-30); Chloride 101 mmol/L (98-107); Glucose 93 mg/dL (74-99); Potassium 3.6 mmol/L (3.5-5.1); Sodium 137 mmol/L (137-145); Total Protein 7.1 g/dL (6.3-8.2)
--- NOTE | 2018-10-04 11:42 | P.GSCN ---
History of Present Illness Consult date: 10/04/18 Reason for Consult: Abdominal pain Requesting physician: Sandra Emmanuel History of present illness: CHIEF COMPLAINT: Abdominal pain HISTORY OF PRESENT ILLNESS: 43-year-old male who presents to the hospital with a 2 day history of nausea, vomiting, and right upper quadrant abdominal pain. General surgery was consulted for further evaluation. Patient examined at the bedside this morning. He continues to report right upper quadrant pain, but states he feels much better than he did before coming to the hospital. He denies nausea or vomiting currently. He reports drinking 1-2 glasses of wine a night, but denies alcohol use within the last week. PAST MEDICAL HISTORY: See list. PAST SURGICAL HISTORY: See list. MEDICATIONS: See list. ALLERGIES: See list. SOCIAL HISTORY: No illicit drug use. Reports daily alcohol use, although denies ETOH use within past week. REVIEW OF SYSTEMS: CONSTITUTIONAL: Reports possible fevers at home. HEENT: Denies blurred vision, vision changes, or eye pain. Denies hemoptysis ENDOCRINE: Denies heat or cold intolerance. CARDIOVASCULAR: Denies chest pain or pressure. RESPIRATORY: No shortness of breath. GASTROINTESTINAL: Reports right upper quadrant abdominal pain. Reports nausea and vomiting prior to hospitalization, but currently denies. NEURO: Denies history of seizures. PSYCH: No depression or suicidal ideation HEMATOLOGIC: Denies bleeding disorders. LYMPHATIC: The patient denies any lumps and bumps around the neck. GENITOURINARY: Denies any blood in urine or increased urinary frequency. MUSCULOSKELETAL: Denies myalgias. Denies joint swelling. Denies decreased range of motion beyond patients baseline. SKIN: Denies pruitis. Denies rash. PHYSICAL EXAM: VITAL SIGNS: Currently stable. GENERAL: Well-developed in no acute distress. HEENT: No sclera icterus. Extraocular movements grossly intact. Moist buccal mucosa. Head is atraumatic, normocephalic. Hears conversational speech. No nasal drainage. NECK: Supple without lymphadenopathy. CHEST: Non-labored respirations and equal bilateral excursions. CARDIOVASCULAR: Regular rate with regular rhythm. Palpable 2+ radial pulses. ABDOMEN: Soft. Nondistended. Tenderness upon palpation of all 4 quadrant, most severe in right lower quadrant MUSCULOSKELETAL: No clubbing, cyanosis or edema. NEUROLOGIC: Tremors noted to bilateral upper extremities and face. No focal or lateralizing signs. Cranial nerves II through XII grossly intact. PSYCH: Appropriate affect. Alert and oriented to person, place and time. SKIN: Diaphoretic. Well perfused. Good skin turgor. LABORATORY DATA: Laboratory data upon admission reveals white count 13.3. Hemoglobin 16.1. Bilirubin 3.2. AST 93. ALT 46. Alkaline phosphatase 96. Amylase 72. Lipase 234. IMAGIN. KUB x-ray: Nonobstructive bowel gas pattern 2. Abdominal ultrasound: Distended gallbladder. No stones visualized. Positive Bundy sign. Borderline dilated common bile duct measuring 7 mm. Increased hepatic echogenicity most likely reflects steatosis ASSESSMENT: 1. Abdominal pain, nausea, vomiting x 2 days 2. Distended gallbladder with borderline dilated CBD, acalculus, positive Bundy sign 3. Hyperbilirubinemia 4. Alcohol abuse with suspected DTs 5. Leukocytosis PLAN: 1. NPO 2. Await results of repeat lab work 3. Continue IV fluids. Continue antibiotics 4. Further recommendations pending bedside evaluation by Dr. Miller Nurse practitioner note has been reviewed by physician. Signing provider agrees with the documented findings, assessment, and plan of care. Past Medical History Past Medical History: Hypertension, Seizure Disorder Additional Past Medical History / Comment(s): ulcer, in rehab for etoh abuse History of Any Multi-Drug Resistant Organisms: None Reported Past Surgical History: Ear Surgery Additional Past Surgical History / Comment(s): EGD Past Anesthesia/Blood Transfusion Reactions: No Reported Reaction Past Psychological History: Anxiety, Depression, PTSD Smoking Status: Former smoker Past Alcohol Use History: None Reported Past Drug Use History: None Reported - Past Family History Mother Family Medical History: Thyroid Disorder Father Additional Family Medical History / Comment(s): ETOH Medications and Allergies Home Medications Medication Instructions Recorded Confirmed Type Cholecalciferol [Vitamin D3] 1,000 unit PO DAILY 05/18/17 10/03/18 History Folic Acid 1 mg PO DAILY 05/18/17 10/03/18 History Multivitamins, Thera [Multivitamin 1 tab PO DAILY 05/18/17 10/03/18 History (formulary)] Sucralfate [Carafate] 1 gm PO QID 05/18/17 10/03/18 History Thiamine [Vitamin B-1] 100 mg PO DAILY 05/18/17 10/03/18 History Pantoprazole [Protonix] 40 mg PO AC-BID #60 tab 05/21/17 10/03/18 Rx Magnesium Oxide 1,200 mg PO BID 08/31/18 10/03/18 History Propranolol HCl [Inderal LA] 120 mg PO DAILY 08/31/18 10/03/18 History levETIRAcetam [Keppra] 750 mg PO Q12HR 08/31/18 10/03/18 History Gabapentin [Neurontin] 300 mg PO TID #45 cap 09/07/18 10/03/18 Rx Vortioxetine Hydrobromide 10 mg PO DAILY #30 tablet 09/07/18 10/03/18 Rx [Trintellix] traZODone HCL [Desyrel] 100 mg PO HS 10/03/18 10/03/18 History Allergies Allergy/AdvReac Type Severity Reaction Status Date / Time Penicillins Allergy Rash/Hives Verified 10/03/18 20:52 Surgical - Exam Vital Signs Temp Pulse Resp BP Pulse Ox 98.2 F 129 H 22 129/83 100 10/03/18 19:16 10/03/18 19:16 10/03/18 19:16 10/03/18 19:16 10/03/18 19:16 Results - Labs 10/03/18 21:30 10/03/18 21:30 Abnormal Lab Results - Last 24 Hours (Table) 10/03/18 10/03/18 10/03/18 Range/Units 21:30 21:30 23:25 WBC 13.3 H (3.8-10.6) k/uL Plt Count 132 L (150-450) k/uL Neutrophils # 10.9 H (1.3-7.7) k/uL Sodium 132 L (137-145) mmol/L Chloride 85 L (98-107) mmol/L Carbon Dioxide 16 L (22-30) mmol/L Glucose 142 H (74-99) mg/dL Calcium 10.3 H (8.4-10.2) mg/dL Total Bilirubin 3.2 H (0.2-1.3) mg/dL AST 93 H (17-59) U/L Total Protein 9.8 H (6.3-8.2) g/dL Albumin 5.8 H (3.5-5.0) g/dL Urine Protein 2+ H (Negative) Urine Ketones 4+ H (Negative) Urine Blood Trace H (Negative) Hyaline Casts 28 H (0-2) /lpf Urine Mucus Rare H (None) /hpf Diabetes panel 10/03/18 Range/Units 21:30 Sodium 132 L (137-145) mmol/L Potassium 3.9 (3.5-5.1) mmol/L Chloride 85 L (98-107) mmol/L Carbon Dioxide 16 L (22-30) mmol/L BUN 18 (9-20) mg/dL Creatinine 1.07 (0.66-1.25) mg/dL Glucose 142 H (74-99) mg/dL Calcium 10.3 H (8.4-10.2) mg/dL AST 93 H (17-59) U/L ALT 46 (21-72) U/L Alkaline Phosphatase 96 (38-126) U/L Total Protein 9.8 H (6.3-8.2) g/dL Albumin 5.8 H (3.5-5.0) g/dL Calcium panel 10/03/18 Range/Units 21:30 Calcium 10.3 H (8.4-10.2) mg/dL Albumin 5.8 H (3.5-5.0) g/dL Pituitary panel 10/03/18 Range/Units 21:30 Sodium 132 L (137-145) mmol/L Potassium 3.9 (3.5-5.1) mmol/L Chloride 85 L (98-107) mmol/L Carbon Dioxide 16 L (22-30) mmol/L BUN 18 (9-20) mg/dL Creatinine 1.07 (0.66-1.25) mg/dL Glucose 142 H (74-99) mg/dL Calcium 10.3 H (8.4-10.2) mg/dL Adrenal panel 10/03/18 Range/Units 21:30 Sodium 132 L (137-145) mmol/L Potassium 3.9 (3.5-5.1) mmol/L Chloride 85 L (98-107) mmol/L Carbon Dioxide 16 L (22-30) mmol/L BUN 18 (9-20) mg/dL Creatinine 1.07 (0.66-1.25) mg/dL Glucose 142 H (74-99) mg/dL Calcium 10.3 H (8.4-10.2) mg/dL Total Bilirubin 3.2 H (0.2-1.3) mg/dL AST 93 H (17-59) U/L ALT 46 (21-72) U/L Alkaline Phosphatase 96 (38-126) U/L Total Protein 9.8 H (6.3-8.2) g/dL Albumin 5.8 H (3.5-5.0) g/dL
[2018-10-04 11:57] LABS: Basophils % (A) 0 %; Eosinophils # (A) 0.1 k/uL (0-0.7); Eosinophils % (A) 1 %; HCT 40.1 % (39.0-53.0); HGB 13.9 gm/dL (13.0-17.5); Lymphocytes # (A) 1.6 k/uL (1.0-4.8); Lymphocytes % (A) 15 %; MCH 32.8 pg (25.0-35.0); MCHC 34.7 g/dL (31.0-37.0); MCV 94.3 fL (80.0-100.0); Mean Platelet Volume 8.8; Monocytes # (A) 0.7 k/uL (0-1.0); Monocytes % (A) 6 %; Neutrophils # (A) 8.3 k/uL (1.3-7.7); Neutrophils % (A) 77 %; Platelet Count 102 k/uL (150-450); RBC 4.26 m/uL (4.30-5.90); RDW 12.4 % (11.5-15.5); WBC 10.9 k/uL (3.8-10.6)
[2018-10-04] MEDS: SUCRALFATE 1 GM TAB PO SCH ×3 (14:42→21:12)
[2018-10-04] MEDS: DIAZEPAM 5 MG TAB PO SCH ×2 (14:43→23:40)
[2018-10-04] MEDS ORDERED: GABAPENTIN 300 MG CAP PO SCH (16:00)
[2018-10-04 17:20] LABS: Hepatitis A Antibody IgM Non-Reactive (Non-Reactive); Hepatitis B Core IgM Non-Reactive (Non-Reactive)
[2018-10-04] MEDS: THIAMINE 100 MG TAB PO SCH (17:39)
[2018-10-04] MEDS: METOPROLOL TARTRATE 12.5 MG TAB PO SCH ×2 (17:39→23:39)
[2018-10-04] MEDS: PANTOPRAZOLE 40 MG TABLET PO SCH (17:39)
--- NOTE | 2018-10-04 17:50 | NM ---
EXAMINATION TYPE: NM hepatobiliary w CCK DATE OF EXAM: 10/04/2018 COMPARISON: NONE HISTORY: Distended gallbladder. Pain. TECHNIQUE: After the intravenous administration of 5.11 mCi Tc 99m Mebrofenin hepatobiliary scintigra phy is performed. Immediate images post injection. FINDINGS: There is satisfactory initial accumulation of tracer by the liver. The gallbladder is visualized wit hin 18 minutes. The small bowel activity is noted within 8 minutes. There is no evidence of cystic duct or common bile duct obstruction. No gallbladder ejection fraction images were submitted for interpretation. IMPRESSION: No focal liver defect. No evidence of cystic duct or common bile duct obstruction. No demonstrated ab normality.
--- NOTE | 2018-10-04 20:11 | HP ---
HISTORY AND PHYSICAL DATE OF ADMISSION: 10/04/2018 PRESENTING COMPLAINT: Abdominal pain, vomiting. HISTORY OF PRESENTING COMPLAINT: This is a 43-year-old patient of Dr. Zane Kapadia who is a long-standing alcoholic. Complications include alcoholic pancreatitis and peptic ulcer disease. The patient also has anxiety, depression, seizure disorder, hypertension. The patient continued to drink up until about a week ago; would drink both vodka and wine. The patient presents with 2-3 days of increasing vomiting, abdominal pain. Ultrasound did show a distended gallbladder. The patient also had a low-grade fever, tachycardia, and was also having alcohol withdrawal syndrome. He was started on CIWA scale earlier today. The patient's last drink was about a week ago. General Surgery has been consulted. REVIEW OF SYSTEMS: CONSTITUTIONAL: Weak, tired. Low-grade fever. HEENT: None. RESPIRATORY: None. CARDIOVASCULAR: None. GASTROINTESTINAL: As above. GENITOURINARY: None. MUSCULOSKELETAL: None. DERMATOLOGICAL: None. HEMATOLOGICAL: None. LYMPHATICS: None. PSYCHIATRY: Very anxious. NEUROLOGICAL: Some tremors. PAST MEDICAL HISTORY: 1. Hypertension. 2. Seizure disorder. 3. Chronic alcoholism. 4. Peptic ulcer disease. PAST SURGICAL HISTORY: 1. EGD. 2. Ear surgery. PSYCH HISTORY: Depression, anxiety, PTSD. SOCIAL HISTORY: The patient has been drinking alcohol for a long time, including vodka and wine. Also took Ecstasy. No smoking. The patient lives with his mother, works at [employer] in [facility]. FAMILY HISTORY: Alcohol and thyroid disorder. HOME MEDICATIONS: 1. Desyrel 100 mg at bedtime. 2. Keppra 750 mg q.12. 3. Trintellix 10 mg p.o. daily; has not been taking it because of nausea. 4. Thiamine 100 mg a day. 5. Carafate 1 gram p.o. q.i.d. 6. Protonix 40 mg b.i.d. 7. Multivitamin 1 tablet p.o. daily. 8. Magnesium oxide 1200 mg p.o. b.i.d. 9. Folic acid 1 mg p.o. daily. 10.Vitamin D3 1000 units p.o. daily. ALLERGIES: PENICILLIN. PHYSICAL EXAMINATION: Temperature 100.8, pulse 116, respiration 20, blood pressure 103/74, pulse ox 98% on room air. GENERAL APPEARANCE: Average build. Lying in bed. Anxious-appearing. Flushed. EYES: Pupils equal. Conjunctivae normal. HEENT: External appearance of nose and ears normal. Oral cavity normal. NECK: JVD not raised. Mass not palpable. RESPIRATORY: Effort normal. LUNGS: Fair air entry. CARDIOVASCULAR: First and second sounds normal. No edema. ABDOMEN: Upper abdominal tenderness. No guarding or rigidity. Liver and spleen not palpable. Bowel sounds present. LYMPHATIC: No lymph node palpable in neck or axillae. PSYCHIATRY: Alert and oriented x3. Mood and affect very anxious-appearing. NEUROLOGICAL: Pupils equal. No facial asymmetry. Tremors are present. INVESTIGATIONS: White count 13.3, hemoglobin 16.1, potassium 3.9. BUN and creatinine are normal. AST 93, ALT 46. Hepatitis A, IgM/hepatitis B surface antigen/hepatitis B core IgM antibody/hepatitis C IgG all negative. Influenza A and B negative. Abdominal ultrasound shows distended gallbladder, borderline dilated common bile duct. HIDA scan shows no evidence of cystic or common bile duct obstruction. ASSESSMENT: 1. Possible acute cholecystitis, given upper abdominal pain, nausea, vomiting, increased white count and a septic picture, even though the HIDA scan is non- suggestive. 2. Chronic alcohol dependence. 3. Anxiety and depression with anxiety uncontrolled. 4. Peptic ulcer disease. 5. Essential hypertension. 6. Seizure disorder. PLAN: Patient is on IV fluids, IV antibiotics. General Surgery was consulted. Home medications are resumed. General surgery and also psychiatry consultations have been done. For alcohol withdrawal, will put the patient on Valium, beta oj for the and CIWA scale. Care was discussed with the patient. Questions were answered. MMODL / IJN: [id number] /
[2018-10-04] MEDS: traZODone HCL 100 MG TAB PO SCH (21:10)
[2018-10-04] MEDS: ENOXAPARIN 40 MG/0.4 ML SYRINGE SQ SCH (21:11)
[2018-10-05] MEDS: LEVOFLOXACIN 750MG-D5W PMX 750 MG in DEXTROSE/WATER 1 150ML.BAG IVPB SCH (03:55)
[2018-10-05] MEDS: SODIUM CHLORIDE 0.9% 1,000 ML IV SCH ×4 (03:55→22:31)
[2018-10-05] MEDS: LORazepam 2 MG/ML INJ IV PRN (03:56)
[2018-10-05] MEDS ORDERED: PROPRANOLOL LA 60 MG CAP.SA.24H PO SCH (09:00)
[2018-10-05 09:51] LABS: Basophils % (A) 1 %; Eosinophils # (A) 0.2 k/uL (0-0.7); Eosinophils % (A) 3 %; HCT 37.3 % (39.0-53.0); HGB 13.1 gm/dL (13.0-17.5); Lymphocytes % (A) 30 %; MCH 33.8 pg (25.0-35.0); MCHC 35.1 g/dL (31.0-37.0); MCV 96.3 fL (80.0-100.0); Mean Platelet Volume 8.1; Monocytes # (A) 0.4 k/uL (0-1.0); Monocytes % (A) 6 %; Neutrophils # (A) 3.9 k/uL (1.3-7.7); Neutrophils % (A) 59 %; RBC 3.87 m/uL (4.30-5.90); RDW 12.2 % (11.5-15.5); WBC 6.6 k/uL (3.8-10.6)
[2018-10-05 09:56] LABS: ALT 34 U/L (21-72); AST 64 U/L (17-59); Albumin 3.6 g/dL (3.5-5.0); Alkaline Phosphatase 50 U/L (38-126); Anion Gap 12 mmol/L; Blood Urea Nitrogen 9 mg/dL (9-20); Calcium 7.9 mg/dL (8.4-10.2); Carbon Dioxide 22 mmol/L (22-30); Chloride 105 mmol/L (98-107); Glucose 86 mg/dL (74-99); Potassium 3.5 mmol/L (3.5-5.1); Sodium 139 mmol/L (137-145); Total Bilirubin 1.6 mg/dL (0.2-1.3); Total Protein 6.4 g/dL (6.3-8.2)
[2018-10-05 10:15] LABS: Platelet Count 96 k/uL (150-450)
--- NOTE | 2018-10-05 10:34 | P.PN ---
Subjective Progress Note Date: 10/05/18 CHIEF COMPLAINT: Abdominal pain HISTORY OF PRESENT ILLNESS: Patient examined at the bedside. He remains sleepy this morning. He complains of generalized abdominal pain. He is NPO. HIDA scan yesterday was negative for cystic duct or common bile duct obstruction. Spoke with Morgan from [facility] regarding no ejection fraction on HIDA scan dictation. He states EF is 16% and will speak with radiology to add addendum to dictation. PHYSICAL EXAM: VITAL SIGNS: Currently stable. GENERAL: Well-developed in no acute distress. HEENT: No sclera icterus. Extraocular movements grossly intact. Moist buccal mucosa. Head is atraumatic, normocephalic. Hears conversational speech. No nasal drainage. NECK: Supple without lymphadenopathy. CHEST: Non-labored respirations and equal bilateral excursions. CARDIOVASCULAR: Regular rate with regular rhythm. Palpable 2+ radial pulses. ABDOMEN: Soft. Nondistended. Tenderness upon palpation of all 4 quadrant, most severe in right upper quadrant MUSCULOSKELETAL: No clubbing, cyanosis or edema. NEUROLOGIC: Tremors noted to bilateral upper extremities and face, improved from yesterday. No focal or lateralizing signs. Cranial nerves II through XII grossly intact. PSYCH: Appropriate affect. Alert and oriented to person, place and time. SKIN: Diaphoretic. Well perfused. Good skin turgor. IMAGIN. KUB x-ray: Nonobstructive bowel gas pattern 2. Abdominal ultrasound: Distended gallbladder. No stones visualized. Positive Bundy sign. Borderline dilated common bile duct measuring 7 mm. Increased hepatic echogenicity most likely reflects steatosis ASSESSMENT: 1. Abdominal pain, nausea, vomiting x 2 days 2. Distended gallbladder with borderline dilated CBD, acalculus, positive Bundy sign 3. Gallbladder dysfunction, HIDA scan reveals EF 16% 4. Hyperbilirubinemia 5. Alcohol abuse 6. Leukocytosis, resolving PLAN: HIDA scan results reviewed with Dr. Miller who recommends laparoscopic cholecystectomy. Patient agreeable. Continue NPO. Patient to go to OR this afternoon. Nurse practitioner note has been reviewed by physician. Signing provider agrees with the documented findings, assessment, and plan of care. Objective - Vital Signs Vital signs: Vital Signs Temp 98.5 F 10/05/18 07:59 Pulse 67 10/05/18 07:59 Resp 16 02/27/19 07:59 BP 118/76 10/05/18 07:59 Pulse Ox 99 10/05/18 07:59 Intake & Output 10/04/18 10/05/18 10/05/18 18:59 06:59 18:59 Intake Total 1200 2000 Balance 1200 2000 Intake: Intake, IV Titration 1200 1650 Amount Levofloxacin 750Mg-D5w 150 Pmx 750 mg In Dextrose/ Water 1 150ml.bag @ 100 mls/hr IVPB Q24H [facility] Rx#: [id number] Sodium Chloride 0.9% 1, 1200 1500 000 ml @ 150 mls/hr IV . Q6H40M [facility] Rx#:[id number] Oral 350 Other: Voiding Method Toilet Urinal # Voids 1 2 - Labs CBC & Chem 7: 10/05/18 08:49 10/05/18 08:49 Labs: Abnormal Lab Results - Last 24 Hours (Table) 10/04/18 10/04/18 10/05/18 Range/Units 11:09 11:09 08:49 WBC 10.9 H (3.8-10.6) k/uL RBC 4.26 L 3.87 L (4.30-5.90) m/uL Hct 37.3 L (39.0-53.0) % Plt Count 102 L 96 L (150-450) k/uL Neutrophils # 8.3 H (1.3-7.7) k/uL Creatinine (0.66-1.25) mg/dL Calcium 8.2 L (8.4-10.2) mg/dL Total Bilirubin 2.0 H (0.2-1.3) mg/dL Unconjugated Bilirubin 1.6 H (0.0-1.1) mg/dL Delta Bilirubin 0.4 H (0.0-0.2) mg/dL AST 68 H (17-59) U/L 10/05/18 Range/Units 08:49 WBC (3.8-10.6) k/uL RBC (4.30-5.90) m/uL Hct (39.0-53.0) % Plt Count (150-450) k/uL Neutrophils # (1.3-7.7) k/uL Creatinine 0.59 L (0.66-1.25) mg/dL Calcium 7.9 L (8.4-10.2) mg/dL Total Bilirubin 1.6 H (0.2-1.3) mg/dL Unconjugated Bilirubin (0.0-1.1) mg/dL Delta Bilirubin (0.0-0.2) mg/dL AST 64 H (17-59) U/L Microbiology - Last 24 Hours (Table) 10/04/18 01:54 Blood Culture - Preliminary Blood No Growth after 24 hours
[2018-10-05] MEDS: SUCRALFATE 1 GM TAB PO SCH ×4 (11:09→22:27)
[2018-10-05] MEDS: DIAZEPAM 5 MG TAB PO SCH ×3 (11:09→23:37)
[2018-10-05] MEDS: PANTOPRAZOLE 40 MG TABLET PO SCH ×2 (11:09→18:23)
[2018-10-05] MEDS: ENOXAPARIN 40 MG/0.4 ML SYRINGE SQ SCH (11:09)
[2018-10-05] MEDS: VORTIOXETINE HYDROBROMIDE 10 MG TABLET PO SCH (11:09)
[2018-10-05] MEDS: THIAMINE 100 MG TAB PO SCH ×2 (11:10→18:23)
[2018-10-05] MEDS: MULTIVITAMINS, THERA 1 EACH TAB PO SCH (11:10)
[2018-10-05] MEDS: FOLIC ACID 1 MG TAB PO SCH (11:10)
[2018-10-05] MEDS: CHOLECALCIFEROL 1,000 UNIT TAB PO SCH (11:15)
--- NOTE | 2018-10-05 11:17 | P.PN ---
Subjective Progress Note Date: 10/05/18 Principal diagnosis: Abdominal pain elevated liver enzymes EtOH abuse Still reports abdominal pain. LFTs improved. Bilirubin fractions mostly unconjugated. Hepatitis panel nonreactive. White count 6.6. Total bilirubin 1.6. AST 64. ALT 34. AP 50. Afebrile. Scheduled for OR today cholecystectomy. Objective - Vital Signs Vital signs: Vital Signs Temp 98.5 F 10/05/18 07:59 Pulse 67 10/05/18 07:59 Resp 16 10/05/18 07:59 BP 118/76 10/05/18 07:59 Pulse Ox 99 10/05/18 07:59 Intake & Output 10/04/18 10/05/18 10/05/18 18:59 06:59 18:59 Intake Total 1200 2000 Balance 1200 2000 Intake: Intake, IV Titration 1200 1650 Amount Levofloxacin 750Mg-D5w 150 Pmx 750 mg In Dextrose/ Water 1 150ml.bag @ 100 mls/hr IVPB Q24H [facility] Rx#: [id number] Sodium Chloride 0.9% 1, 1200 1500 000 ml @ 150 mls/hr IV . Q6H40M [facility] Rx#:[id number] Oral 350 Other: Voiding Method Toilet Urinal # Voids 1 2 - Exam General appearance: The patient is alert, oriented, in no acute distress. HET: Head is normocephalic and atraumatic. Pupils are equal and reactive. Oropharynx is clear without lesions. Neck: Supple without lymphadenopathy. Trachea midline. Heart: S1 S2. Regular rate and rhythm. Lungs: No crackles or wheezes are heard. Abdomen: Soft, mild tenderness to the midepigastric right upper quadrant, nondistended with bowel sounds. No peritoneal signs. No palpable organomegaly or masses. Extremities: Normal skin color and turgor. No cyanosis, rash, ulceration, clubbing, or edema. Radial and pedal pulses are 2/4 bilaterally. Neurological: No focal deficits. Strength and sensation are grossly intact. - Labs CBC & Chem 7: 10/05/18 08:49 10/05/18 08:49 Labs: Abnormal Lab Results - Last 24 Hours (Table) 10/04/18 10/04/18 10/05/18 Range/Units 11:09 11:09 08:49 WBC 10.9 H (3.8-10.6) k/uL RBC 4.26 L 3.87 L (4.30-5.90) m/uL Hct 37.3 L (39.0-53.0) % Plt Count 102 L 96 L (150-450) k/uL Neutrophils # 8.3 H (1.3-7.7) k/uL Creatinine (0.66-1.25) mg/dL Calcium 8.2 L (8.4-10.2) mg/dL Total Bilirubin 2.0 H (0.2-1.3) mg/dL Unconjugated Bilirubin 1.6 H (0.0-1.1) mg/dL Delta Bilirubin 0.4 H (0.0-0.2) mg/dL AST 68 H (17-59) U/L 10/05/18 Range/Units 08:49 WBC (3.8-10.6) k/uL RBC (4.30-5.90) m/uL Hct (39.0-53.0) % Plt Count (150-450) k/uL Neutrophils # (1.3-7.7) k/uL Creatinine 0.59 L (0.66-1.25) mg/dL Calcium 7.9 L (8.4-10.2) mg/dL Total Bilirubin 1.6 H (0.2-1.3) mg/dL Unconjugated Bilirubin (0.0-1.1) mg/dL Delta Bilirubin (0.0-0.2) mg/dL AST 64 H (17-59) U/L Microbiology - Last 24 Hours (Table) 10/04/18 01:54 Blood Culture - Preliminary Blood No Growth after 24 hours Assessment and Plan (1) Abdominal pain Narrative/Plan: 43-year-old male with a history of EtOH abuse admitted with acute upper abdominal pain nausea vomiting elevated liver enzymes suspect component of underlying acute alcohol hepatitis. Current Visit: Yes Status: Acute Code(s): R10.9 - UNSPECIFIED ABDOMINAL PAIN SNOMED Code(s): 82374323 (2) Elevated liver enzymes Current Visit: Yes Status: Acute Code(s): R74.8 - ABNORMAL LEVELS OF OTHER SERUM ENZYMES SNOMED Code(s): 133855111 (3) ETOH abuse Current Visit: No Status: Acute Code(s): F10.10 - ALCOHOL ABUSE, UNCOMPLICATED SNOMED Code(s): 05160227 Plan: 1. OR today. Continue present medical therapy. Assessment and plan a care discussed with Dr. Dietrich.
[2018-10-05] MEDS: METOPROLOL TARTRATE 12.5 MG TAB PO SCH ×3 (11:18→23:37)
[2018-10-05] MEDS: HYDROmorphone 0.5 MG/0.5 ML SYRINGE IVP PRN ×3 (11:18→22:30)
[2018-10-05] MEDS ORDERED: IV FLUID CONTINUATION 1,000 ML IV ONE (13:12)
[2018-10-05] MEDS ORDERED: HEPARIN SODIUM,PORCINE 5,000 UNIT/ML 1 ML VIAL SQ ONE (13:23)
[2018-10-05] MEDS ORDERED: ROCURONIUM BROMIDE 10 MG/ML 10 ML VIAL IV ONE (13:31)
[2018-10-05] MEDS ORDERED: KETOROLAC 30 MG/ML 1 ML VIAL ONE (13:31)
[2018-10-05] MEDS ORDERED: PROPOFOL 10 MG/ML 20 ML VIAL IV ONE (13:31)
[2018-10-05] MEDS ORDERED: LIDOCAINE 1% INJ 10MG/ML (20 ML MDV) ONE (13:31)
[2018-10-05] MEDS ORDERED: fentaNYL (PF) 50 MCG/ML 2 ML AMP ONE (13:31)
[2018-10-05] MEDS ORDERED: SUCCINYLCHOLINE CHLORIDE 100 MG/5 ML SYR IV ONE (13:31)
[2018-10-05] MEDS ORDERED: HYDROmorphone (PF) 1 MG/ML ONE (13:31)
[2018-10-05] MEDS ORDERED: MIDAZOLAM 2 MG/2 ML VIAL ONE (13:31)
[2018-10-05] MEDS ORDERED: SODIUM CHLORIDE 0.9% 1,000 ML IV ONE (13:50)
[2018-10-05] MEDS ORDERED: BUPIVACAIN-EPI 0.5%-1:200,000 30 ML VIAL SQ ONE (13:50)
--- NOTE | 2018-10-05 14:14 | P.OP ---
Date of Procedure: 10/05/18 Preoperative Diagnosis: Cholecystitis Postoperative Diagnosis: Cholecystitis Procedure(s) Performed: Laparoscopic cholecystectomy Anesthesia: MICKIE Surgeon: Cristóbal Miller Estimated Blood Loss (ml): 10 Pathology: other (Gallbladder) Condition: stable Disposition: PACU Description of Procedure: The patient was placed on the operating table. The patient received a general endotracheal tube anesthesia. The patients abdomen was prepped and draped in the usual sterile fashion. Through an infraumbilical stab incision, the fascia of the anterior abdominal wall was grasped with a pair of Kochers and then the Veress needle was placed in the peritoneal cavity. Position of the Veress needle was confirmed with positive drop test. The abdomen was then insufflated. After adequate insufflation, the 10 mm trocar was placed in the peritoneal cavity. Following this the laparoscope was placed in the peritoneal cavity. The patient was placed in the head-up, right side up position and then a 5 mm trocar was placed in the right lateral and right subcostal position under direct visualization. A 8 mm trocar was placed in the epigastric position. The gallbladder was grasped in the fundus and infundibulum. Traction on the gallbladder was placed in the lateral and the cephalad positions. The triangle of Calot was visualized.. The cystic duct was bluntly dissected until the union of the cystic duct and common bile duct was seen. The cystic duct was then divided and sealed with the Harmonic scissors. A PDS Endoloop was then placed throughout the cystic duct stump. The cystic artery divided and sealed with the Harmonic scissors. The gallbladder was then removed from the liver bed using Harmonic scissors. The gallbladder was then extracted through the epigastric port site. Operative field was checked for any bleeding spots and Harmonic scissors was used to coagulate the liver bed. The abdomen was irrigated. The trocars were removed. The skin was closed using interrupted 3-0 Vicryl suture. Dermabond dressing were applied. The patient tolerated the procedure well.
[2018-10-05] MEDS: ONDANSETRON 4 MG/2 ML VIAL IVP PRN (14:24)
[2018-10-05] MEDS ORDERED: PROMETHAZINE INJ 25 MG/ML 1 ML VIAL IVPB ONE (14:26)
[2018-10-05] MEDS: HYDROmorphone 1 MG/ML 1 ML SYRINGE IVP ONE ×2 (14:35→14:37)
[2018-10-05] MEDS: traZODone HCL 100 MG TAB PO SCH (22:30)
[2018-10-06] MEDS: LEVOFLOXACIN 750MG-D5W PMX 750 MG in DEXTROSE/WATER 1 150ML.BAG IVPB SCH (02:42)
[2018-10-06] MEDS: SODIUM CHLORIDE 0.9% 1,000 ML IV SCH (08:02)
[2018-10-06] MEDS: DIAZEPAM 5 MG TAB PO SCH (08:22)
[2018-10-06] MEDS: MULTIVITAMINS, THERA 1 EACH TAB PO SCH (08:22)
[2018-10-06] MEDS: SUCRALFATE 1 GM TAB PO SCH ×2 (08:22→14:18)
[2018-10-06] MEDS: CHOLECALCIFEROL 1,000 UNIT TAB PO SCH (08:22)
[2018-10-06] MEDS: FOLIC ACID 1 MG TAB PO SCH (08:22)
[2018-10-06] MEDS: METOPROLOL TARTRATE 12.5 MG TAB PO SCH (08:22)
[2018-10-06] MEDS: THIAMINE 100 MG TAB PO SCH (08:22)
[2018-10-06] MEDS: PANTOPRAZOLE 40 MG TABLET PO SCH (08:22)
[2018-10-06] MEDS: ENOXAPARIN 40 MG/0.4 ML SYRINGE SQ SCH (08:23)
[2018-10-06] MEDS: HYDROcodone/APAP 7.5-325MG 1 EACH TAB PO PRN ×2 (08:23→14:18)
[2018-10-06 08:39] VITALS: RESP 16
--- NOTE | 2018-10-06 09:47 | P.CN ---
Psychiatric Consult - . Consult date: 10/06/18 Consult:: 10/05/18 13:14 Uncontrolled anxiety Assessment and Plan Assessment: 43-year-old male patient presents to the emergency department for evaluation of vomiting and abdominal pain. Patient states he's had intermittent symptoms over the last week. Patient states that current symptoms started at 03 100 this morning and have not stopped. States his been unable to keep down any food or fluids. States he has been dry heaving and vomiting of bilious emesis. States he has had cold sweats but denies any known fever. States he is having some upper abdominal discomfort. Patient denies any recent travel or sick contacts. Denies any history of abdominal surgery. States that he does have history of alcohol abuse but is currently attending AA, states it has been one week since his had any alcohol. Denies any street drug use. Denies any hematochezia or melena. Denies any diarrhea. Patient denies any recent rash, shortness breath, chest pain, back pain, numbness, tingling, dizziness, weakness , hematuria, dysuria, urinary urgency, urinary frequency, headache, visual changes, or any other complaints. - Related Data Home Medications Medication Instructions Recorded Confirmed Cholecalciferol [Vitamin D3] 1,000 unit PO DAILY 05/18/17 10/03/18 Folic Acid 1 mg PO DAILY 05/18/17 10/03/18 Multivitamins, Thera [Multivitamin 1 tab PO DAILY 05/18/17 10/03/18 (formulary)] Sucralfate [Carafate] 1 gm PO QID 05/18/17 10/03/18 Thiamine [Vitamin B-1] 100 mg PO DAILY 05/18/17 10/03/18 Magnesium Oxide 1,200 mg PO BID 08/31/18 10/03/18 levETIRAcetam [Keppra] 750 mg PO Q12HR 08/31/18 10/03/18 traZODone HCL [Desyrel] 100 mg PO HS 10/03/18 10/03/18 Previous Rx's Medication Instructions Recorded Pantoprazole [Protonix] 40 mg PO AC-BID #60 tab 05/21/17 Vortioxetine Hydrobromide 10 mg PO DAILY #30 tablet 09/07/18 [Trintellix] Allergies Allergy/AdvReac Type Severity Reaction Status Date / Time Penicillins Allergy Rash/Hives Verified 10/03/18 20:52 Past Medical History Past Medical History: Hypertension, Seizure Disorder Additional Past Medical History / Comment(s): ulcer, in rehab for etoh abuse History of Any Multi-Drug Resistant Organisms: None Reported Past Surgical History: Ear Surgery Additional Past Surgical History / Comment(s): EGD Past Anesthesia/Blood Transfusion Reactions: No Reported Reaction Past Psychological History: Anxiety, Depression, PTSD Smoking Status: Current some day smoker Past Alcohol Use History: None Reported Past Drug Use History: None Reported - Past Family History Mother Family Medical History: Thyroid Disorder Father Additional Family Medical History / Comment(s): ETOh Discharge Medication List 09/07/2018 from [facility] [place] Cholecalciferol [Vitamin D3] 1,000 unit PO DAILY 05/18/17 [History] Folic Acid 1 mg PO DAILY 05/18/17 [History] Multivitamins, Thera [Multivitamin (formulary)] 1 tab PO DAILY 05/18/17 [History ] Sucralfate [Carafate] 1 gm PO QID 05/18/17 [History] Thiamine [Vitamin B-1] 100 mg PO DAILY 05/18/17 [History] Pantoprazole [Protonix] 40 mg PO AC-BID #60 tab 05/21/17 [Rx] Albuterol Inhaler [Ventolin Hfa Inhaler] 1 puff INHALATION RT-DAILY 08/31/18 [ History] Magnesium Oxide 1,000 mg PO BID 08/31/18 [History] Propranolol HCl [Inderal LA] 120 mg PO DAILY 08/31/18 [History] levETIRAcetam [Keppra] 750 mg PO Q12HR 08/31/18 [History] Gabapentin [Neurontin] 300 mg PO TID #45 cap 09/07/18 [Rx] Vortioxetine Hydrobromide [Trintellix] 10 mg PO DAILY #30 tablet 09/07/18 [Rx] traZODone HCL [Desyrel] 50 mg PO HS PRN #30 tab 09/07/18 [Rx] Mental Status Examination - The patient presents alert, pleasant, and cooperative. There calmly seated without any agitated behavior. he reports that [ is alert.] mood is good. Affect is congruent and euthymic. [his ] deny having any suicidal or homicidal ideation intent or plan. [he] denies any auditory or visual hallucinations. There is no evidence of any delusional thought content. [that hehe] thought process is linear and goal-directed. [his] speech is fluent and nonpressured. [his] memory and concentration is grossly intact for the purposes of this session. Psychiatric impression : Major depressive disorder and remission Psychiatric recommendations: Continue his psychiatric meds as outlined above he is not a candidate for the inpatient psychiatric unit since he has normal mental status Thank you for the consult Tani Pastrana D.O. PhD (1) Alcohol use disorder Current Visit: No Status: Acute Priority: High Code(s): RQD5940 - SNOMED Code(s): 49057906 (2) Anxiety Current Visit: No Status: Acute Priority: Medium Code(s): F41.9 - ANXIETY DISORDER, UNSPECIFIED SNOMED Code(s): 14501442
--- NOTE | 2018-10-06 10:32 | P.PN ---
Subjective Progress Note Date: 10/06/18 CHIEF COMPLAINT: Abdominal pain HISTORY OF PRESENT ILLNESS: Patient examined at the bedside. Patient is status post laparoscopic cholecystectomy. Patient reports abdominal pain this morning. Reports nausea but denies vomiting. Patient is tolerating regular diet. Vital signs stable. He is afebrile. PHYSICAL EXAM: VITAL SIGNS: Currently stable. GENERAL: Well-developed in no acute distress. HEENT: No sclera icterus. Extraocular movements grossly intact. Moist buccal mucosa. Head is atraumatic, normocephalic. Hears conversational speech. No nasal drainage. NECK: Supple without lymphadenopathy. CHEST: Non-labored respirations and equal bilateral excursions. CARDIOVASCULAR: Regular rate with regular rhythm. Palpable 2+ radial pulses. ABDOMEN: Soft. Nondistended. Surgical incision sites clean dry and intact without drainage. MUSCULOSKELETAL: No clubbing, cyanosis or edema. NEUROLOGIC: No focal or lateralizing signs. Cranial nerves II through XII grossly intact. PSYCH: Appropriate affect. Alert and oriented to person, place and time. SKIN: Well perfused. Good skin turgor. IMAGIN. KUB x-ray: Nonobstructive bowel gas pattern 2. Abdominal ultrasound: Distended gallbladder. No stones visualized. Positive Bundy sign. Borderline dilated common bile duct measuring 7 mm. Increased hepatic echogenicity most likely reflects steatosis ASSESSMENT: 1. Abdominal pain, nausea, vomiting x 2 days 2. Distended gallbladder with borderline dilated CBD, acalculus, positive Bundy sign 3. Cholecystitis, status post laparoscopic cholecystectomy 4. Hyperbilirubinemia 5. Alcohol abuse 6. Leukocytosis, resolved PLAN: Continue diet. Pain control. Incentive spirometry. Increase activity as tolerated. Nurse practitioner note has been reviewed by physician. Signing provider agrees with the documented findings, assessment, and plan of care. Objective - Vital Signs Vital signs: Vital Signs Temp 98.6 F 10/06/18 07:00 Pulse 71 10/06/18 07:00 Resp 16 10/06/18 07:00 BP 122/79 10/06/18 07:00 Pulse Ox 96 10/06/18 07:00 Intake & Output 10/05/18 10/06/18 10/06/18 18:59 06:59 18:59 Intake Total 1175 2250 360 Output Total 5 460 Balance 1170 1790 360 Intake: IV 1175 Intake, IV Titration 1400 Amount Levofloxacin 750Mg-D5w 150 Pmx 750 mg In Dextrose/ Water 1 150ml.bag @ 100 mls/hr IVPB Q24H [facility] Rx#: [id number] Sodium Chloride 0.9% 1, 1250 000 ml @ 150 mls/hr IV . Q6H40M [facility] Rx#:[id number] Oral 850 360 Output: Urine 460 Estimated Blood Loss 5 Other: # Voids 3 - Labs CBC & Chem 7: 10/05/18 08:49 10/05/18 08:49 Labs: Microbiology - Last 24 Hours (Table) 10/04/18 01:54 Blood Culture - Preliminary Blood No Growth after 48 hours
[2018-10-06] MEDS: VORTIOXETINE HYDROBROMIDE 10 MG TABLET PO SCH (10:56)
--- NOTE | 2018-10-06 12:32 | P.PN ---
Subjective Progress Note Date: 10/06/18 Principal diagnosis: Abdominal pain elevated liver enzymes EtOH abuse Status post laparoscopic cholecystectomy. No chemistries to review today. Mild abdominal discomfort. Afebrile. Objective - Vital Signs Vital signs: Vital Signs Temp 98.6 F 10/06/18 07:00 Pulse 71 10/06/18 07:00 Resp 16 10/06/18 07:00 BP 122/79 10/06/18 07:00 Pulse Ox 96 10/06/18 07:00 Intake & Output 10/05/18 10/06/18 10/06/18 18:59 06:59 18:59 Intake Total 1175 2250 720 Output Total 5 460 Balance 1170 1790 720 Intake: IV 1175 Intake, IV Titration 1400 Amount Levofloxacin 750Mg-D5w 150 Pmx 750 mg In Dextrose/ Water 1 150ml.bag @ 100 mls/hr IVPB Q24H [facility] Rx#: [id number] Sodium Chloride 0.9% 1, 1250 000 ml @ 150 mls/hr IV . Q6H40M [facility] Rx#:[id number] Oral 850 720 Output: Urine 460 Estimated Blood Loss 5 Other: # Voids 3 - Exam General appearance: The patient is alert, oriented, in no acute distress. HET: Head is normocephalic and atraumatic. Pupils are equal and reactive. Oropharynx is clear without lesions. Neck: Supple without lymphadenopathy. Trachea midline. Heart: S1 S2. Regular rate and rhythm. Lungs: No crackles or wheezes are heard. Abdomen: Soft, surgical dressings clean mild tenderness, nondistended with bowel sounds. No peritoneal signs. No palpable organomegaly or masses. Extremities: Normal skin color and turgor. No cyanosis, rash, ulceration, clubbing, or edema. Radial and pedal pulses are 2/4 bilaterally. Neurological: No focal deficits. Strength and sensation are grossly intact. - Labs CBC & Chem 7: 10/05/18 08:49 10/05/18 08:49 Labs: Microbiology - Last 24 Hours (Table) 10/04/18 01:54 Blood Culture - Preliminary Blood No Growth after 48 hours Assessment and Plan (1) Abdominal pain Narrative/Plan: 43-year-old male with a history of EtOH abuse admitted with acute upper abdominal pain nausea vomiting elevated liver enzymes suspect component of underlying acute alcohol hepatitis status post laparoscopic cholecystectomy. Current Visit: Yes Status: Acute Code(s): R10.9 - UNSPECIFIED ABDOMINAL PAIN SNOMED Code(s): 42085103 (2) Elevated liver enzymes Current Visit: Yes Status: Acute Code(s): R74.8 - ABNORMAL LEVELS OF OTHER SERUM ENZYMES SNOMED Code(s): 735450235 (3) ETOH abuse Current Visit: No Status: Acute Code(s): F10.10 - ALCOHOL ABUSE, UNCOMPLICATED SNOMED Code(s): 05556424 Plan: 1. Discharge per medicine and surgery. We'll follow on an as-needed basis. Alcohol abstinence reinforced. Assessment and plan a care discussed with Dr. Dietrich.
[2018-10-06] MEDS ORDERED: fentaNYL (PF) 50 MCG/ML 2 ML AMP ONE (13:31)
[2018-10-06] MEDS ORDERED: ROCURONIUM BROMIDE 10 MG/ML 10 ML VIAL IV ONE (13:31)
[2018-10-06] MEDS ORDERED: KETOROLAC 30 MG/ML 1 ML VIAL ONE (13:31)
[2018-10-06] MEDS ORDERED: HYDROmorphone (PF) 1 MG/ML ONE (13:31)
[2018-10-06] MEDS ORDERED: MIDAZOLAM 2 MG/2 ML VIAL ONE (13:31)
[2018-10-06] MEDS ORDERED: PROPOFOL 10 MG/ML 20 ML VIAL IV ONE (13:31)
[2018-10-06] MEDS ORDERED: LIDOCAINE 1% INJ 10MG/ML (20 ML MDV) ONE (13:31)
[2018-10-06] MEDS ORDERED: SUCCINYLCHOLINE CHLORIDE 100 MG/5 ML SYR IV ONE (13:31)
[2018-10-06 14:31] VITALS: BP 109/77; PULSE 85; TEMP 98.5
--- NOTE | 2018-10-07 00:19 | PN ---
PROGRESS NOTE DATE OF SERVICE: October 05, 2018. PRESENTING COMPLAINT: Abdominal pain. INTERVAL HISTORY: Patient seen by me yesterday. Presented with abdominal pain, felt to be from gallbladder. The patient is still having right upper quadrant pain. Nausea is somewhat better. Lying in bed, pending to go down to surgery. REVIEW OF SYSTEMS: Done for constitutional, cardiovascular, GI, pulmonary and relevant findings as above. CURRENT MEDICATIONS: Reviewed that include Valium and beta oj. PHYSICAL EXAMINATION: VITAL SIGNS: Temperature 97.9. Pulse 69, respirations 16, blood pressure 127/84, pulse ox 95% on room air. GENERAL APPEARANCE: Lying in bed anxious. EYES: Pupils equal. Conjunctivae normal. NECK: JVD not raised. Mass not palpable. RESPIRATORY: Effort normal. LUNGS: Fair air entry. CARDIOVASCULAR: First and second sounds normal. No edema. ABDOMEN: Upper abdominal tenderness. No guarding or rigidity. PSYCHIATRY: Alert and oriented x3. Mood and affect anxious-appearing. NEUROLOGICAL: Decreased tremors. INVESTIGATIONS: White count 6.6, potassium 3.5, BUN 9, creatinine 0.59. ASSESSMENT: 1. Suspect acute cholecystitis pending surgery. 2. Chronic alcohol dependence. 3. Anxiety, depression not otherwise specified. 4. Peptic ulcer disease. 5. Essential hypertension. 6. Seizure disorder. 7. Acute alcohol withdrawal. PLAN: Continue current medication and treatment plan. Await surgery. Alcohol withdrawal actually better. MMODL / IJN: [id number] /
--- NOTE | 2018-10-07 07:04 | CDI ---
Documentation Clarification Form Date: 10/07/2018 6:47:11 AM From: Mariely Nails Phone: If you have a question about this query, please contact Luiza Sepulveda Business Development Coordinator at [phone] between 8am and 5pm. Admit Date: 10/04/2018 1:19:00 AM Patient Name: Ash Gutierrez Visit Number: [id number] Discharge Date: 10/06/2018 5:18:00 PM ATTENTION: The Clinical Documentation Specialists (CDI) and [facility] Coding Staff appreciate your assistance in clarifying documentation. Please respond to the clarification below the line at the bottom and electronically sign. The CDI & [facility] Coding staff will review the response and follow-up if needed. Please note: Queries are made part of the Legal Health Record. If you have any questions, please contact the author of this message via ITS. Dr. Amaury Berry The patient presented with the following RUQ pain found to have cholecystitis. H and P documents "septic picture. Please clarify if patient was septic. History/Risk Factors: Cholecystitis Clinical Indicators: fever rapid heart rate WBC 13.3 Vitals signs on day of admission: 100.8F HR 129 22 103/74 98% RA Treatment: laparoscopic cholecystectomy In your professional opinion, please clarify if patient was septic Condition Sepsis ruled out Sepsis Other, please specify Unable to determine Present on Admission Yes No SIRS Criteria (2 or more of the following may indicate SIRS): -Temperature < 96.8F (36C) or > 101.0F (38.3C) -Heart Rate > 90 bpm -Respiratory Rate > 20 breaths/min or PaCO2 < 32 mmHg -White Blood Cell Count > 12,000 or < 4,000 cells/mm3 or > 10% bands -Lactate >2.0 mmol/L (>4.0 is equivalent to septic shock) sepsis-POA MTDD
--- NOTE | 2018-10-07 10:32 | DS ---
DISCHARGE SUMMARY DATE OF ADMISSION: 10/04/2018 DATE OF DISCHARGE: 10/06/2018 FINAL DIAGNOSES: 1. Acute cholecystitis followed by cholecystectomy. 2. Chronic alcohol dependence. 3. Acute alcohol withdrawal. 4. Anxiety, depression with some anxiety uncontrolled. 5. Peptic ulcer disease. 6. Essential hypertension. 7. Seizure disorder. PROCEDURE: Cholecystectomy. CONSULTATIONS: Dr. Pastrana from Psychiatry, Dr. Miller from General Surgery. HOSPITAL COURSE: This patient has continued to drink until about a week ago presented with right upper quadrant pain, strongly suspicious for cholecystitis. Successful cholecystectomy was carried out by Dr. Miller. Patient was treated for alcohol withdrawal syndrome. Also seen by Dr. Pastrana from Psychiatry. No change in medications. Today patient overall doing much better, tolerating some diet. On examination, temperature 98.6, pulse 71, respiration 16, blood pressure 122/79, pulse ox 96% on room air. ABDOMEN: Soft, minimal tenderness. Bowel sounds present. PSYCHIATRY: Alert and oriented x3. Mood and affect more calm. INVESTIGATIONS: No blood work from today. DISCHARGE MEDICATIONS: 1. Vitamin D3, 1000 units p.o. daily. 2. Folic acid 1 mg p.o. daily. 3. Multivitamin 1 tablet p.o. daily. 4. Thiamine 100 mg a day. 5. Protonix 40 mg p.o. b.i.d. 6. Magnesium oxide 200 mg p.o. b.i.d. 7. Keppra 750 mg p.o. q.12. 8. Trintellix 10 mg p.o. daily. 9. Desyrel 100 mg p.o. q.h.s. 10.[place] 7.5 one tablet q.6 p.r.n. 11.Lopressor 12.5 p.o. b.i.d. Follow up with Dr. Zane Kapadia in 3 days. Follow up with Dr. Miller in 1 week. DIET: Soft, bland. Return to work next Wednesday that is October 10. MMODL / IJN: [id number] /
== END 2018-10-06 17:18 | disposition home or self-care (01) | DRG 854 ==
LOC: EC 18:47 → 4SSUR 10-04 01:19
PROVIDERS: ADMIT Hospitalist; ATTEND Hospitalist
PROC: 0FT44ZZ Resection of Gallbladder, Percutaneous Endoscopic Approach (ICD-10-PCS; principal; 2018-10-06)
DX: A41.9 Sepsis, unspecified organism (principal); K81.2 Acute cholecystitis with chronic cholecystitis; F10.239 Alcohol dependence with withdrawal, unspecified; F17.210 Nicotine dependence, cigarettes, uncomplicated; F41.8 Other specified anxiety disorders; F43.10 Post-traumatic stress disorder, unspecified; G40.909 Epilepsy, unspecified, not intractable, without status epilepticus; I10 Essential (primary) hypertension; Z87.11 Personal history of peptic ulcer disease; K83.8 Other specified diseases of biliary tract; Z79.899 Other long term (current) drug therapy; Z88.0 Allergy status to penicillin; E80.6 Other disorders of bilirubin metabolism; K70.10 Alcoholic hepatitis without ascites
CPT/HCPCS: 36415; 74018; 76705; 78227; 80053; 80074; 81001; 82150; 82248; 83605; 83690; 85025; 85610; 85730; 87040; 87502; 88304; 96361; 96365; 96367; 96375; 99285

== ENCOUNTER 2018-10-17 16:53 | Inpatient (IN) | payer OTHER ==
[2018-10-17] MEDS ORDERED: PANTOPRAZOLE 40 MG/10 ML VIAL IVP STA (17:43)
[2018-10-17] MEDS ORDERED: DIAZEPAM 5 MG/ML 2 ML INJ IVP STA (17:43)
[2018-10-17] MEDS ORDERED: ONDANSETRON 4 MG/2 ML VIAL IVP STA ×2 (17:43→20:09)
[2018-10-17] MEDS ORDERED: SODIUM CHLORIDE 0.9% 500 ML 500 ML IV STA (17:43)
[2018-10-17] MEDS ORDERED: SODIUM CHLORIDE 0.9% 1,000 ML IV STA ×3 (17:43→19:44)
--- NOTE | 2018-10-17 17:47 | ED ---
Nausea/Vomiting/Diarrhea HPI - General Chief complaint: Nausea/Vomiting/Diarrhea Stated complaint: Post Op Shakiness, nausea Time Seen by Provider: 10/17/18 17:42 Source: patient, RN notes reviewed, old records reviewed Mode of arrival: ambulatory Limitations: no limitations - History of Present Illness Initial comments: This is a 43-year-old male the ER for evaluation. Patient is mildly poor strain secondary to critical clinical condition. Difficulty telling history. No chest pain no travel history no sick contacts. Patient did have recent positive gallbladder surgery. Feel that he can't stop shaking. Fevers. Diaphoretic. MD complaint: nausea, vomiting, diarrhea -: days(s) Description of Vomiting: food contents Description of Diarrhea: water Associated Abdominal Pain: Yes Severity: moderate Severity scale (1-10): 7 Quality: cramping Consistency: constant Improves with: none Worsens with: none Context: recent surgery/procedure Associated Symptoms: myalgias, loss of appetite, nausea/vomiting, weakness - Related Data Home Medications Medication Instructions Recorded Confirmed Cholecalciferol [Vitamin D3] 1,000 unit PO DAILY 05/18/17 10/17/18 Folic Acid 1 mg PO DAILY 05/18/17 10/17/18 Multivitamins, Thera [Multivitamin 1 tab PO DAILY 05/18/17 10/17/18 (formulary)] Thiamine [Vitamin B-1] 100 mg PO DAILY 05/18/17 10/17/18 Magnesium Oxide 1,200 mg PO BID 08/31/18 10/17/18 levETIRAcetam [Keppra] 750 mg PO Q12HR 08/31/18 10/17/18 traZODone HCL [Desyrel] 100 mg PO HS 10/03/18 10/17/18 Previous Rx's Medication Instructions Recorded Pantoprazole [Protonix] 40 mg PO AC-BID #60 tab 05/21/17 Vortioxetine Hydrobromide 10 mg PO DAILY #30 tablet 09/07/18 [Trintellix] HYDROcodone/APAP 7.5-325MG [[place] 1 tab PO Q6HR PRN 3 Days #10 tab 10/06/18 7.5-325] Metoprolol Tartrate [Lopressor] 12.5 mg PO BID #60 tab 10/06/18 Allergies Allergy/AdvReac Type Severity Reaction Status Date / Time Penicillins Allergy Rash/Hives Verified 10/17/18 18:12 Review of Systems ROS Statement: Those systems with pertinent positive or pertinent negative responses have been documented in the HPI. ROS Other: All systems not noted in ROS Statement are negative. Past Medical History Past Medical History: Hypertension, Seizure Disorder Additional Past Medical History / Comment(s): ulcer, in rehab for etoh abuse History of Any Multi-Drug Resistant Organisms: None Reported Past Surgical History: Cholecystectomy, Ear Surgery Additional Past Surgical History / Comment(s): EGD Past Anesthesia/Blood Transfusion Reactions: No Reported Reaction Past Psychological History: Anxiety, Depression, PTSD Smoking Status: Former smoker Past Alcohol Use History: None Reported Past Drug Use History: None Reported - Past Family History Mother Family Medical History: Thyroid Disorder Father Additional Family Medical History / Comment(s): ETOH General Exam Limitations: altered mental status General appearance: alert, anxious, in distress Head exam: Present: atraumatic, normocephalic, normal inspection Eye exam: Present: normal appearance, PERRL, EOMI. Absent: scleral icterus, conjunctival injection, periorbital swelling ENT exam: Present: normal exam, mucous membranes moist Neck exam: Present: normal inspection. Absent: tenderness, meningismus, lymphadenopathy Respiratory exam: Present: normal lung sounds bilaterally. Absent: respiratory distress, wheezes, rales, rhonchi, stridor Cardiovascular Exam: Present: normal rhythm, tachycardia, normal heart sounds. Absent: systolic murmur, diastolic murmur, rubs, gallop, clicks GI/Abdominal exam: Present: soft, normal bowel sounds. Absent: distended, tenderness, guarding, rebound, rigid Extremities exam: Present: normal inspection, full ROM, normal capillary refill. Absent: tenderness, pedal edema, joint swelling, calf tenderness Back exam: Present: normal inspection Neurological exam: Present: alert, oriented X3, CN II-XII intact Psychiatric exam: Present: normal affect, normal mood Skin exam: Present: warm, dry, intact, normal color. Absent: rash Course Vital Signs 10/17/18 10/17/18 10/17/18 17:15 18:29 20:15 Temperature 98.2 F 99.2 F Pulse Rate 115 H 84 90 Respiratory 22 18 18 Rate Blood Pressure 137/89 134/82 149/96 O2 Sat by Pulse 99 99 100 Oximetry 10/17/18 22:00 Temperature Pulse Rate 97 Respiratory 20 Rate Blood Pressure 120/87 O2 Sat by Pulse Oximetry - Reevaluation(s) Reevaluation #1: Medical record and prior hospitalization or reviewed Symptoms improved here in the emergency room with benzodiazepines Medical Decision Making - Medical Decision Making 43 male the ER for evaluation of postop alcohol withdrawal. Alcohol ketoacidosis. Patient be admitted for hydration monitoring of DTs - Lab Data Result diagrams: 10/17/18 18:25 10/17/18 18:25 Lab Results 10/17/18 10/17/18 10/17/18 Range/Units 18:25 18:25 18:25 WBC 11.4 H (3.8-10.6) k/uL RBC 4.83 (4.30-5.90) m/uL Hgb 15.8 (13.0-17.5) gm/dL Hct 47.0 (39.0-53.0) % MCV 97.5 (80.0-100.0) fL MCH 32.7 (25.0-35.0) pg MCHC 33.6 (31.0-37.0) g/dL RDW 12.6 (11.5-15.5) % Plt Count 357 D (150-450) k/uL Neutrophils % 88 % Lymphocytes % 8 % Monocytes % 4 % Eosinophils % 1 % Basophils % 0 % Neutrophils # 10.0 H (1.3-7.7) k/uL Lymphocytes # 0.9 L (1.0-4.8) k/uL Monocytes # 0.4 (0-1.0) k/uL Eosinophils # 0.1 (0-0.7) k/uL Basophils # 0.0 (0-0.2) k/uL PT (9.0-12.0) sec INR (<1.2) APTT (22.0-30.0) sec Sodium 138 (137-145) mmol/L Potassium 4.4 (3.5-5.1) mmol/L Chloride 96 L (98-107) mmol/L Carbon Dioxide 14 L (22-30) mmol/L Anion Gap 28 mmol/L BUN 11 (9-20) mg/dL Creatinine 0.58 L (0.66-1.25) mg/dL Est GFR (CKD-EPI)AfAm >90 (>60 ml/min/1.73 sqM) Est GFR (CKD-EPI)NonAf >90 (>60 ml/min/1.73 sqM) Glucose 112 H (74-99) mg/dL Lactic Ac Sepsis Rflx Plasma Lactic Acid Kel 4.0 H* (0.7-2.0) mmol/L Calcium 10.5 H (8.4-10.2) mg/dL Phosphorus 3.8 (2.5-4.5) mg/dL Magnesium 1.1 L (1.6-2.3) mg/dL Total Bilirubin 2.5 H (0.2-1.3) mg/dL AST 168 H (17-59) U/L ALT 106 H (21-72) U/L Alkaline Phosphatase 312 H (38-126) U/L Ammonia 42 H (<30) umol/L Troponin I (0.000-0.034) ng/mL Total Protein 9.5 H (6.3-8.2) g/dL Albumin 5.7 H (3.5-5.0) g/dL Lipase (23-300) U/L Urine Color Urine Appearance (Clear) Urine pH (5.0-8.0) Ur Specific [place] (1.001-1.035) Urine Protein (Negative) Urine Glucose (UA) (Negative) Urine Ketones (Negative) Urine Blood (Negative) Urine Nitrite (Negative) Urine Bilirubin (Negative) Urine Urobilinogen (<2.0) mg/dL Ur Leukocyte Esterase (Negative) Urine WBC (0-5) /hpf Ur Squamous Epith Cells (0-4) /hpf Urine Mucus (None) /hpf 10/17/18 10/17/18 10/17/18 Range/Units 18:25 18:25 18:25 WBC (3.8-10.6) k/uL RBC (4.30-5.90) m/uL Hgb (13.0-17.5) gm/dL Hct (39.0-53.0) % MCV (80.0-100.0) fL MCH (25.0-35.0) pg MCHC (31.0-37.0) g/dL RDW (11.5-15.5) % Plt Count (150-450) k/uL Neutrophils % % Lymphocytes % % Monocytes % % Eosinophils % % Basophils % % Neutrophils # (1.3-7.7) k/uL Lymphocytes # (1.0-4.8) k/uL Monocytes # (0-1.0) k/uL Eosinophils # (0-0.7) k/uL Basophils # (0-0.2) k/uL PT 11.4 (9.0-12.0) sec INR 1.1 (<1.2) APTT 23.9 (22.0-30.0) sec Sodium (137-145) mmol/L Potassium (3.5-5.1) mmol/L Chloride (98-107) mmol/L Carbon Dioxide (22-30) mmol/L Anion Gap mmol/L BUN (9-20) mg/dL Creatinine (0.66-1.25) mg/dL Est GFR (CKD-EPI)AfAm (>60 ml/min/1.73 sqM) Est GFR (CKD-EPI)NonAf (>60 ml/min/1.73 sqM) Glucose (74-99) mg/dL Lactic Ac Sepsis Rflx Plasma Lactic Acid Kel (0.7-2.0) mmol/L Calcium (8.4-10.2) mg/dL Phosphorus (2.5-4.5) mg/dL Magnesium (1.6-2.3) mg/dL Total Bilirubin (0.2-1.3) mg/dL AST (17-59) U/L ALT (21-72) U/L Alkaline Phosphatase (38-126) U/L Ammonia (<30) umol/L Troponin I <0.012 (0.000-0.034) ng/mL Total Protein (6.3-8.2) g/dL Albumin (3.5-5.0) g/dL Lipase (23-300) U/L Urine Color Yellow Urine Appearance Clear (Clear) Urine pH 5.5 (5.0-8.0) Ur Specific [place] 1.022 (1.001-1.035) Urine Protein 2+ H (Negative) Urine Glucose (UA) Negative (Negative) Urine Ketones 4+ H (Negative) Urine Blood Negative (Negative) Urine Nitrite Negative (Negative) Urine Bilirubin Negative (Negative) Urine Urobilinogen <2.0 (<2.0) mg/dL Ur Leukocyte Esterase Negative (Negative) Urine WBC <1 (0-5) /hpf Ur Squamous Epith Cells <1 (0-4) /hpf Urine Mucus Rare H (None) /hpf 10/17/18 10/17/18 Range/Units 18:25 19:19 WBC (3.8-10.6) k/uL RBC (4.30-5.90) m/uL Hgb (13.0-17.5) gm/dL Hct (39.0-53.0) % MCV (80.0-100.0) fL MCH (25.0-35.0) pg MCHC (31.0-37.0) g/dL RDW (11.5-15.5) % Plt Count (150-450) k/uL Neutrophils % % Lymphocytes % % Monocytes % % Eosinophils % % Basophils % % Neutrophils # (1.3-7.7) k/uL Lymphocytes # (1.0-4.8) k/uL Monocytes # (0-1.0) k/uL Eosinophils # (0-0.7) k/uL Basophils # (0-0.2) k/uL PT (9.0-12.0) sec INR (<1.2) APTT (22.0-30.0) sec Sodium (137-145) mmol/L Potassium (3.5-5.1) mmol/L Chloride (98-107) mmol/L Carbon Dioxide (22-30) mmol/L Anion Gap mmol/L BUN (9-20) mg/dL Creatinine (0.66-1.25) mg/dL Est GFR (CKD-EPI)AfAm (>60 ml/min/1.73 sqM) Est GFR (CKD-EPI)NonAf (>60 ml/min/1.73 sqM) Glucose (74-99) mg/dL Lactic Ac Sepsis Rflx Y Plasma Lactic Acid Kel (0.7-2.0) mmol/L Calcium (8.4-10.2) mg/dL Phosphorus (2.5-4.5) mg/dL Magnesium (1.6-2.3) mg/dL Total Bilirubin (0.2-1.3) mg/dL AST (17-59) U/L ALT (21-72) U/L Alkaline Phosphatase (38-126) U/L Ammonia (<30) umol/L Troponin I (0.000-0.034) ng/mL Total Protein (6.3-8.2) g/dL Albumin (3.5-5.0) g/dL Lipase 179 (23-300) U/L Urine Color Urine Appearance (Clear) Urine pH (5.0-8.0) Ur Specific [place] (1.001-1.035) Urine Protein (Negative) Urine Glucose (UA) (Negative) Urine Ketones (Negative) Urine Blood (Negative) Urine Nitrite (Negative) Urine Bilirubin (Negative) Urine Urobilinogen (<2.0) mg/dL Ur Leukocyte Esterase (Negative) Urine WBC (0-5) /hpf Ur Squamous Epith Cells (0-4) /hpf Urine Mucus (None) /hpf - EKG Data -: EKG Interpreted by Me (EKG shows normal sinus rhythm rate of 71, [place] 1:30, QRS 90, QTc 469) Critical Care Time Critical Care Time: Yes Total Critical Care Time: 31 Disposition Clinical Impression: Major depressive disorder, recurrent severe without psychotic features, De lirium tremens, Alcoholic ketoacidosis Disposition: ADMITTED IP TO THIS HOSP Condition: Fair Is patient prescribed a controlled substance at d/c from ED?: No
[2018-10-17] MEDS ORDERED: levETIRAcetam IV 1,000 MG in SALINE 1 100ML.BAG IVPB STA (18:17)
[2018-10-17 18:47] LABS: Basophils % (A) 0 %; Eosinophils # (A) 0.1 k/uL (0-0.7); Eosinophils % (A) 1 %; HGB 15.8 gm/dL (13.0-17.5); Lymphocytes # (A) 0.9 k/uL (1.0-4.8); Lymphocytes % (A) 8 %; MCH 32.7 pg (25.0-35.0); MCHC 33.6 g/dL (31.0-37.0); MCV 97.5 fL (80.0-100.0); Mean Platelet Volume 6.7; Monocytes # (A) 0.4 k/uL (0-1.0); Monocytes % (A) 4 %; Neutrophils % (A) 88 %; RBC 4.83 m/uL (4.30-5.90); RDW 12.6 % (11.5-15.5); WBC 11.4 k/uL (3.8-10.6)
[2018-10-17 18:53] LABS: Platelet Count 357 k/uL (150-450)
[2018-10-17 18:55] LABS: Appearance,Urine Clear (Clear); Bilirubin,Urine Negative (Negative); Blood,Urine Negative (Negative); Color,Urine Yellow; Glucose,Urine (UA) Negative (Negative); Ketones,Urine 4+ (Negative); Leukocyte Esterase,Urine Negative (Negative); Mucus,Urine Rare /hpf; Nitrite,Urine Negative (Negative); PH, Urine 5.5 (5.0-8.0); Protein,Urine 2+ (Negative); Specific Gravity,Urine 1.022 (1.001-1.035); Squamous Epithelial Cell,Urine <1 /hpf (0-4); Urobilinogen,Urine <2.0 mg/dL (<2.0); WBC,Urine <1 /hpf (0-5)
[2018-10-17 18:57] LABS: ALT 106 U/L (21-72); AST 168 U/L (17-59); Albumin 5.7 g/dL (3.5-5.0); Alkaline Phosphatase 312 U/L (38-126); Anion Gap 28 mmol/L; Blood Urea Nitrogen 11 mg/dL (9-20); Calcium 10.5 mg/dL (8.4-10.2); Carbon Dioxide 14 mmol/L (22-30); Chloride 96 mmol/L (98-107); Glucose 112 mg/dL (74-99); Magnesium 1.1 mg/dL (1.6-2.3); Phosphorus 3.8 mg/dL (2.5-4.5); Potassium 4.4 mmol/L (3.5-5.1); Sodium 138 mmol/L (137-145); Total Bilirubin 2.5 mg/dL (0.2-1.3); Total Protein 9.5 g/dL (6.3-8.2)
[2018-10-17 18:59] LABS: INR 1.1 (<1.2); Partial Thromboplastin Time 23.9 sec (22.0-30.0); Prothrombin Time 11.4 sec (9.0-12.0)
--- NOTE | 2018-10-17 19:09 | XR ---
EXAMINATION TYPE: XR chest 2V DATE OF EXAM: 10/17/2018 COMPARISON: NONE HISTORY: Weakness and fever. TECHNIQUE: Frontal and lateral views of the chest are obtained. FINDINGS: Overlying EKG leads are seen. There is no focal air space opacity, pleural effusion, or pne umothorax seen. The cardiac silhouette size is within normal limits. The osseous structures are in tact. IMPRESSION: No specific acute infiltrate.
[2018-10-17] MEDS: MAGNESIUM SULFATE-D5W PMX 1 GM in DEXTROSE/WATER 1 100ML.BAG IVPB SCH ×4 (20:03→23:59)
[2018-10-17] MEDS ORDERED: LORazepam 2 MG/ML INJ IV STA (20:09)
--- NOTE | 2018-10-17 20:19 | CT ---
EXAMINATION TYPE: CT abdomen pelvis w con DATE OF EXAM: 10/17/2018 COMPARISON: None. HISTORY: abdominal pain and vomiting 1 week post-op kathy, hx of ulcers CT DLP: 874.8 mGycm, Automated Exposure Control for Dose Reduction was Utilized. CONTRAST: CT scan of the abdomen and pelvis is performed without oral but with with IV Contrast, patient inject ed with 100 mL of Isovue 300. FINDINGS: LUNG BASES: Dependent atelectasis both bases is present. LIVER/GB: Liver is diffusely low dense consistent with fatty infiltration. Cholecystectomy clip is se en. PANCREAS: No significant abnormality is seen. SPLEEN: No significant abnormality is seen. ADRENALS: No significant abnormality is seen. KIDNEYS: No significant abnormality is seen. BOWEL: Evaluation bowel is suboptimal secondary to lack of enteric contrast. No suspicious small or l arge bowel dilatation is seen. Appendix is not seen with certainty but no inflammatory change at base of cecum is present. Some diverticula along posterior aspect of cecum extending superiorly are felt present. There is mild wall thickening in the transverse and left colon extending into the proximal s igmoid colon. PROSTATE/SEMINAL VESICLES: No gross abnormality seen. LYMPH NODES: No greater than 1cm abdominal or pelvic lymph nodes are appreciated. OSSEOUS STRUCTURES: Mild Facet arthropathy lower lumbar spine is noted. OTHER: No significant additional abnormality is seen. IMPRESSION: Perhaps mild colitis, correlate clinically. Differential includes product of underdistent ion. No bowel obstruction. No acute finding otherwise seen to account for patient's symptoms.
[2018-10-17] MEDS ORDERED: LORazepam 2 MG/ML INJ IV PRN (21:12)
[2018-10-17] MEDS ORDERED: THIAMINE 100 MG/ML 2 ML VIAL IM STA (21:12)
[2018-10-17] MEDS ORDERED: DIAZEPAM 5 MG/ML 2 ML INJ IVP SCH (21:30)
[2018-10-17 23:08] VITALS: BMI 23.2
[2018-10-17] MEDS: LORazepam 2 MG/ML INJ IV PRN (23:14)
[2018-10-17] MEDS: DIAZEPAM 5 MG/ML (10 ML MDV) IVP SCH (23:22)
[2018-10-18] MEDS: LORazepam 2 MG/ML INJ IV PRN ×3 (04:45→11:56)
[2018-10-18] MEDS: DIAZEPAM 5 MG/ML (10 ML MDV) IVP SCH ×2 (06:48→16:29)
[2018-10-18 07:18] LABS: Anion Gap 11 mmol/L; Blood Urea Nitrogen 4 mg/dL (9-20); Carbon Dioxide 17 mmol/L (22-30); Chloride 107 mmol/L (98-107); Glucose 87 mg/dL (74-99); Magnesium 1.8 mg/dL (1.6-2.3); Potassium 3.8 mmol/L (3.5-5.1); Sodium 135 mmol/L (137-145)
[2018-10-18 07:28] LABS: Basophils % (A) 0 %; Eosinophils # (A) 0.1 k/uL (0-0.7); Eosinophils % (A) 1 %; HCT 36.2 % (39.0-53.0); Lymphocytes # (A) 1.3 k/uL (1.0-4.8); Lymphocytes % (A) 19 %; Mean Platelet Volume 7.5; Monocytes # (A) 0.4 k/uL (0-1.0); Monocytes % (A) 6 %; Neutrophils # (A) 4.9 k/uL (1.3-7.7); Neutrophils % (A) 72 %; Platelet Count 234 k/uL (150-450); RBC 3.73 m/uL (4.30-5.90); RDW 12.5 % (11.5-15.5); WBC 6.8 k/uL (3.8-10.6)
[2018-10-18 07:35] LABS: HGB 11.9 gm/dL (13.0-17.5)
[2018-10-18] MEDS: METOPROLOL TARTRATE 12.5 MG TAB PO SCH ×2 (08:53→20:57)
[2018-10-18] MEDS: ENOXAPARIN 40 MG/0.4 ML SYRINGE SQ SCH (08:54)
[2018-10-18] MEDS: MAGNESIUM OXIDE 400 MG TAB PO SCH ×2 (11:50→20:57)
[2018-10-18] MEDS: PANTOPRAZOLE 40 MG TABLET PO SCH ×2 (11:50→17:39)
[2018-10-18] MEDS: MULTIVITAMINS, THERA 1 EACH TAB PO SCH (11:50)
[2018-10-18] MEDS: FOLIC ACID 1 MG TAB PO SCH (11:50)
[2018-10-18] MEDS: THIAMINE 100 MG TAB PO SCH ×2 (11:55→12:00)
[2018-10-18] MEDS ORDERED: THIAMINE 100 MG TAB PO SCH (12:00)
[2018-10-18] MEDS: SODIUM CHLORIDE 0.9% 1,000 ML IV SCH (12:30)
[2018-10-18] MEDS: traZODone HCL 100 MG TAB PO SCH (20:57)
[2018-10-18] MEDS: DIAZEPAM 5 MG TAB PO SCH (20:57)
[2018-10-18] MEDS: HYDROcodone/APAP 7.5-325MG 1 EACH TAB PO PRN (20:58)
--- NOTE | 2018-10-18 21:58 | HP ---
HISTORY AND PHYSICAL DATE OF ADMISSION: 10/17/2018 PRESENTING COMPLAINT: Shaking tremors. HISTORY OF PRESENTING COMPLAINT: This is a 43-year-old patient of Dr. Zane Kapadia who has a long-standing history of alcoholism. Patient does have alcoholic pancreatitis, peptic ulcer disease, anxiety, depression, seizure disorder. Patient has continued to drink up until rather recently. Patient was here on 10/04/2018; at that time he had acute cholecystitis and was seen by Dr. Miller and cholecystectomy was carried out. It seems after discharge that patient again went back to drinking alcohol. Patient oftentimes will say "no," then admits to the fact that he is drinking alcohol. Patient presented to the ER with alcohol withdrawal syndrome with tremors, shakiness, nausea, vomiting, some diarrhea. Patient was put on Valium, beta oj, admitted for the same. He is having some abdominal discomfort. REVIEW OF SYSTEMS: CONSTITUTIONAL: Weak and tired. HEENT: None. RESPIRATORY: None. CARDIOVASCULAR: None. GASTROINTESTINAL: As above. GENITOURINARY: None. MUSCULOSKELETAL: None. DERMATOLOGICAL: Bruising, healing from recent surgery on the abdomen. LYMPHATICS: None. PSYCHIATRY: Anxious. NEUROLOGICAL: Tremors. PAST MEDICAL HISTORY: 1. Hypertension. 2. Seizure disorder. 3. Chronic alcoholism. 4. Peptic ulcer disease. 5. Pancreatitis. PAST SURGICAL HISTORY: 1. EGD. 2. Cholecystectomy. 3. Ear surgery. PSYCH HISTORY: 1. Anxiety. 2. Depression. 3. PTSD. SOCIAL HISTORY: Patient has been consuming alcohol for a long time, including vodka, and often states he is not taking it. He has also taken Ecstasy in the past. No smoking. Patient lives his mother, working at . FAMILY HISTORY: Alcohol and thyroid disorder. HOME MEDICATIONS: 1. Desyrel 100 mg at bedtime. 2. Keppra 750 mg q.12. 3. Thiamine 100 mg p.o. daily. 4. Protonix 40 mg b.i.d. 5. Multivitamin tablet p.o. daily. 6. Magnesium oxide 1200 mg p.o. b.i.d. 7. Folic acid 1 mg p.o. daily. 8. Vitamin D3 1000 units p.o. daily. 9. Lopressor 12.5 p.o. b.i.d. 10.[place] 7.5 one tablet p.o. q.6 p.r.n. ALLERGIES: PENICILLIN. PHYSICAL EXAMINATION: Temperature 98.2, pulse 115, respiration 22, blood pressure 137/89, pulse ox 99% on room air. GENERAL APPEARANCE: Average build. Lying in bed, anxious, slightly shaky, tremulous. EYES: Pupils equal. Conjunctivae normal. HEENT: External appearance of nose and ears normal. Oral cavity normal. NECK: JVD not raised. Mass not palpable. RESPIRATORY: Effort normal. Lungs are clear. CARDIOVASCULAR: First and second sounds normal. No edema. ABDOMEN: Minimal tenderness. Some bruising, lower abdomen. Liver and spleen not palpable. No guarding or rigidity. LYMPHATIC: No lymph node palpable in neck or axillae. PSYCHIATRY: Patient is anxious. Answering questions. NEUROLOGICAL: Pupils equal. No facial asymmetry. Patient is a bit tremulous. INVESTIGATIONS: White count 11.4, hemoglobin 15.8. Potassium 4.4, BUN 11, creatinine 0.58. Magnesium 1.1, total bilirubin 2.5, AST 168, ALT 106, ammonia 42, lipase 179. Patient's recent labs showed AST and ALT of 64 and 34, and bilirubin was 1.6 last admission. Bicarb was 17. ASSESSMENT: 1. Acute alcohol withdrawal syndrome, present on admission. 2. Recent cholecystectomy by Dr. Miller followed by increase in liver function tests. This could be alcoholic hepatitis. Need to rule out other causes of the same. 3. Anxiety and depression not otherwise specified. 4. Peptic ulcer disease. 5. Essential hypertension. 6. Seizure disorder. 7. Metabolic acidosis. 8. Hypomagnesemia. PLAN: Patient is getting normal saline, multivitamin, thiamine. Home medications are resumed. He is also getting Valium and Lopressor for alcohol withdrawal syndrome. Will also consult GI in view of the increased LFTs. Repeat the labs tomorrow. Put the patient on a liquid diet. Care was discussed with the patient. I expect the patient to be in the hospital for at least 2 nights. MMODL / IJN: [id number] /
[2018-10-19] MEDS: SODIUM CHLORIDE 0.9% 1,000 ML IV SCH ×3 (02:35→19:31)
[2018-10-19] MEDS: HYDROcodone/APAP 7.5-325MG 1 EACH TAB PO PRN ×2 (03:25→16:53)
[2018-10-19 06:36] LABS: Basophils % (A) 1 %; Eosinophils # (A) 0.2 k/uL (0-0.7); Eosinophils % (A) 3 %; HCT 35.2 % (39.0-53.0); HGB 11.8 gm/dL (13.0-17.5); Lymphocytes # (A) 1.8 k/uL (1.0-4.8); Lymphocytes % (A) 42 %; MCH 33.5 pg (25.0-35.0); MCHC 33.6 g/dL (31.0-37.0); MCV 99.6 fL (80.0-100.0); Mean Platelet Volume 7.3; Monocytes # (A) 0.2 k/uL (0-1.0); Monocytes % (A) 6 %; Neutrophils # (A) 1.9 k/uL (1.3-7.7); Neutrophils % (A) 45 %; Platelet Count 202 k/uL (150-450); RBC 3.54 m/uL (4.30-5.90); RDW 12.6 % (11.5-15.5); WBC 4.3 k/uL (3.8-10.6)
[2018-10-19 06:41] LABS: ALT 54 U/L (21-72); AST 50 U/L (17-59); Albumin 3.2 g/dL (3.5-5.0); Alkaline Phosphatase 136 U/L (38-126); Anion Gap 7 mmol/L; Blood Urea Nitrogen 2 mg/dL (9-20); Calcium 8.3 mg/dL (8.4-10.2); Carbon Dioxide 22 mmol/L (22-30); Chloride 107 mmol/L (98-107); Glucose 94 mg/dL (74-99); Potassium 3.3 mmol/L (3.5-5.1); Sodium 136 mmol/L (137-145); Total Bilirubin 1.1 mg/dL (0.2-1.3); Total Protein 5.8 g/dL (6.3-8.2)
[2018-10-19] MEDS: PANTOPRAZOLE 40 MG TABLET PO SCH ×2 (06:49→16:53)
[2018-10-19] MEDS ORDERED: MAGNESIUM SULFATE-D5W PMX 1 GM in DEXTROSE/WATER 1 100ML.BAG IVPB ONE (09:07)
--- NOTE | 2018-10-19 09:12 | P.PN ---
Subjective On-call hospitalist had covering Dr. Brery on 10/19/2018 This is a pleasant 43 years old male with past medical history of hypertension and seizure disorder. Presents because of recurrent nausea vomiting, dehydration and abdominal pain. Patient has mild colitis seen on CAT scan of the abdomen. He does not have any more nausea vomiting since admission with medical therapy. He was started on liquid diet and hysterectomy and that will with no more nausea vomiting. However he still have some abdominal pain. Patient states that his lower abdominal pain is starts about one week ago after he had cholecystectomy. The pain is slightly improving from 8 down to 6/10 in severity, sharp increase with movement. Patient had 2 limited bowel movements which are more liquidy, yellowish in color with no clots. Patient states that he's been drinking a lot before but not prior to admission however he did not give more details. Patient is been on CIWA protocol, when I saw the patient looks a little bit anxious and he has tremors still however patient states he feels better than when he came in. Consults has been already called for surgical and GI team by Dr. Berry Liver enzymes are improving Objective - Vital Signs Vital signs: Vital Signs Temp 98.0 F 10/19/18 04:00 Pulse 67 10/19/18 04:00 Resp 17 10/19/18 04:00 BP 118/81 10/19/18 04:00 Pulse Ox 97 10/19/18 04:00 Intake & Output 10/18/18 10/19/18 10/19/18 18:59 06:59 18:59 Intake Total 444 1770 800 Balance 444 1770 800 Weight 77.8 kg Intake: IV 10 Invasive Line 1 10 Intake, IV Titration 800 Amount Sodium Chloride 0.9% 1, 800 000 ml @ 100 mls/hr IV . Q10H [facility] Rx#:[id number] Oral 444 960 800 Other: Voiding Method Toilet Toilet Urinal Urinal # Voids 2 3 # Bowel Movements 2 - Exam GENERAL: The patient is alert and oriented x3, not in any acute distress. Well developed, well nourished. HEENT: Pupils are round and equally reacting to light. EOMI. No scleral icterus. No conjunctival pallor. Normocephalic, atraumatic. No pharyngeal erythema. No thyromegaly. CARDIOVASCULAR: S1 and S2 present. No murmurs, rubs, or gallops. PULMONARY: Chest is clear to auscultation, no wheezing or crackles. -ABDOMEN: Soft, generalized abdominal tenderness, more on the right lower side. No rebound tenderness nondistended, normoactive bowel sounds. No palpable organomegaly. MUSCULOSKELETAL: No joint swelling or deformity. EXTREMITIES: No cyanosis, clubbing, or pedal edema. NEUROLOGICAL: Gross neurological examination did not reveal any focal deficits. SKIN: No rashes. - Labs CBC & Chem 7: 10/19/18 05:58 10/19/18 05:58 Labs: Abnormal Lab Results - Last 24 Hours (Table) 10/19/18 10/19/18 Range/Units 05:58 05:58 RBC 3.54 L (4.30-5.90) m/uL Hgb 11.8 L (13.0-17.5) gm/dL Hct 35.2 L (39.0-53.0) % Sodium 136 L (137-145) mmol/L Potassium 3.3 L (3.5-5.1) mmol/L BUN 2 L (9-20) mg/dL Creatinine 0.49 L (0.66-1.25) mg/dL Calcium 8.3 L (8.4-10.2) mg/dL Alkaline Phosphatase 136 H (38-126) U/L Total Protein 5.8 L (6.3-8.2) g/dL Albumin 3.2 L (3.5-5.0) g/dL Microbiology - Last 24 Hours (Table) 10/17/18 18:25 Urine Culture - Final Urine,Voided Assessment and Plan Assessment: Postoperative colitis, mostly gastroenteritis Elevated liver enzymes, mild hepatitis, mostly alcohol-related. Improving Alcohol withdrawal Hypomagnesemia, and hypokalemia. GI and surgery consult, called by Dr. Berry History of essential hypertension History of seizure disorder, on Keppra Plan: This is a pleasant 43 years old male who presents with gastroenteritis and alcohol withdrawal. We'll add antibiotics in the form of position and Flagyl. Given the patient's penicillin ALLERGY, and possible interaction of fluoroquinolones with trazodone, we will call ID team to help Send stool for C. diff and a few of recent hospitalization. Continue with see what protocol. Lower family of dose as indicated. Continue with Protonix. Continue with IV fluids. Follow-up GI and surgical team recommendation.Labs and medication were reviewed.. Continue same treatment. Continue with symptomatic treatment. Resume home medication. Monitor lytes and vitals. DVT and GI prophylaxis. Further recommendations of the clinical course of the patient DVT prophylaxis: Subcutaneous Lovenox GI Prophylaxis: Ppi Prognosis is guarded
[2018-10-19] MEDS: ENOXAPARIN 40 MG/0.4 ML SYRINGE SQ SCH (09:14)
[2018-10-19] MEDS: MAGNESIUM OXIDE 400 MG TAB PO SCH ×2 (09:14→21:10)
[2018-10-19] MEDS: DIAZEPAM 5 MG TAB PO SCH ×3 (09:14→21:10)
[2018-10-19] MEDS: METOPROLOL TARTRATE 12.5 MG TAB PO SCH ×2 (09:14→21:10)
[2018-10-19] MEDS ORDERED: AZTREONAM 1 GM in SODIUM CHLORIDE 0.9% 50 ML IVPB SCH (09:15)
--- NOTE | 2018-10-19 10:12 | P.CONS ---
History of Present Illness - Reason for Consult Consult date: 10/19/18 Elevated liver enzymes Requesting physician: Amaury Berry - Chief Complaint Abdominal pain - History of Present Illness 43-year-old male with a history of EtOH abuse recent laparoscopic cholecystectomy 10/05/2018 for acute acalculous cholecystitis admitted with acute right lower abdominal pain diarrhea felt dehydrated. Consult requested for elevated liver enzymes. Admission total bilirubin 2.5. AST 160. ALT 106. AP 312. Ammonia 42. Lactic acid 4. Presently LFTs have improved total bilirubin 1.1. AST 50. ALT 54. AP 136. White count 6.8. Hemoglobin 11.9. Hepatitis screen 2 weeks ago nonreactive. Patient denies active EtOH consumption. Afebrile. C. diff negative. CT abdomen and pelvis with IV contrast only perhaps mild colitis transverse left colon extending into the proximal sigmoid as well as evidence of cecal diverticula possible underdistention. No obstruction. Review of Systems Constitutional: Denies fever, chills, sweats, weight gain, or loss. HEENT: Negative for migraines, blurred vision or loss, earaches, drainage, tinnitus, oral mucosal lesions, dysphagia, or odynophagia. Cardiac: Negative for chest pain, arrhythmias, or palpitation. Respiratory: Negative for shortness of breath, hemoptysis, cough, or sputum production. Gastrointestinal: See HPI for pertinent findings. Genitourinary: Negative for hematuria, urgency, frequency, polyuria, dysuria, or penile discharge. Musculoskeletal: Negative for muscle aches, swelling, arthritis, and arthralgias. Neurologic: Negative for stroke or TIA. Endocrine: Negative for thyroid problems. Skin: Negative for rash or itching. Psychiatric: Negative history for depression and anxiety Past Medical History Past Medical History: Hypertension, Seizure Disorder Additional Past Medical History / Comment(s): ulcer, in rehab for etoh abuse History of Any Multi-Drug Resistant Organisms: None Reported Past Surgical History: Cholecystectomy, Ear Surgery Additional Past Surgical History / Comment(s): EGD Past Anesthesia/Blood Transfusion Reactions: No Reported Reaction Past Psychological History: Anxiety, Depression, PTSD Smoking Status: Former smoker Past Alcohol Use History: None Reported Past Drug Use History: None Reported - Past Family History Mother Family Medical History: Thyroid Disorder Father Additional Family Medical History / Comment(s): ETOH Medications and Allergies Home Medications Medication Instructions Recorded Confirmed Type Cholecalciferol [Vitamin D3] 1,000 unit PO DAILY 05/18/17 10/17/18 History Folic Acid 1 mg PO DAILY 05/18/17 10/17/18 History Multivitamins, Thera [Multivitamin 1 tab PO DAILY 05/18/17 10/17/18 History (formulary)] Thiamine [Vitamin B-1] 100 mg PO DAILY 05/18/17 10/17/18 History Pantoprazole [Protonix] 40 mg PO AC-BID #60 tab 05/21/17 10/17/18 Rx Magnesium Oxide 1,200 mg PO BID 08/31/18 10/17/18 History levETIRAcetam [Keppra] 750 mg PO Q12HR 08/31/18 10/17/18 History traZODone HCL [Desyrel] 100 mg PO HS 10/03/18 10/17/18 History HYDROcodone/APAP 7.5-325MG [[place] 1 tab PO Q6HR PRN 3 Days #10 tab 10/06/18 10/17/18 Rx 7.5-325] Metoprolol Tartrate [Lopressor] 12.5 mg PO BID #60 tab 10/06/18 10/17/18 Rx Allergies Allergy/AdvReac Type Severity Reaction Status Date / Time Penicillins Allergy Rash/Hives Verified 10/17/18 18:12 Physical Exam Vitals: Vital Signs Temp Pulse Resp BP Pulse Ox 10/19/18 04:00 98.0 F 67 17 118/81 97 10/19/18 00:00 97.1 F L 71 16 119/79 96 10/18/18 20:00 98.6 F 76 17 130/82 99 10/18/18 16:00 20 10/18/18 15:29 99.3 F 74 20 117/71 98 10/18/18 11:17 98.5 F 77 20 126/79 99 Intake and Output 10/18/18 10/19/18 10/19/18 22:59 06:59 14:59 Intake Total 232 1760 800 Balance 232 1760 800 Intake: IV 10 Invasive Line 1 10 Intake, IV Titration 800 Amount Sodium Chloride 0.9% 1, 800 000 ml @ 100 mls/hr IV . Q10H [facility] Rx#:[id number] Oral 222 960 800 Other: Voiding Method Toilet Toilet Urinal Urinal # Voids 0 3 Weight 77.8 kg General appearance: The patient is alert, oriented, in no acute distress. HET: Head is normocephalic and atraumatic. Pupils are equal and reactive. Oropharynx is clear without lesions. Neck: Supple without lymphadenopathy. Trachea midline. Heart: S1 S2. Regular rate and rhythm. Lungs: No crackles or wheezes are heard. Abdomen: Soft, mild tenderness to the right mid/right lower quadrant, nondistended with bowel sounds. No peritoneal signs. No palpable organomegaly or masses. Extremities: Normal skin color and turgor. No cyanosis, rash, ulceration, clubbing, or edema. Radial and pedal pulses are 2/4 bilaterally. Neurological: No focal deficits. Strength and sensation are grossly intact. Results CBC & Chem 7: 10/20/18 06:04 10/20/18 06:04 Labs: Abnormal Lab Results - Last 24 Hours (Table) 10/19/18 10/19/18 Range/Units 05:58 05:58 RBC 3.54 L (4.30-5.90) m/uL Hgb 11.8 L (13.0-17.5) gm/dL Hct 35.2 L (39.0-53.0) % Sodium 136 L (137-145) mmol/L Potassium 3.3 L (3.5-5.1) mmol/L BUN 2 L (9-20) mg/dL Creatinine 0.49 L (0.66-1.25) mg/dL Calcium 8.3 L (8.4-10.2) mg/dL Alkaline Phosphatase 136 H (38-126) U/L Total Protein 5.8 L (6.3-8.2) g/dL Albumin 3.2 L (3.5-5.0) g/dL Microbiology - Last 24 Hours (Table) 10/17/18 18:25 Urine Culture - Final Urine,Voided CT scan - abdomen: report reviewed (Dr. Blackman) Assessment and Plan (1) Elevated liver enzymes Narrative/Plan: 43-year-old male history of EtOH abuse recent laparoscopic cholecystectomy for acalculous cholecystitis presents with acute right-sided abdominal pain elevated transaminases and bilirubin with diarrhea. LFTs have significantly improved bilirubin normalized possible dehydration affect. CT abdomen and pelvis cannot exclude underlying colitis possible underdistention with evidence of cecal diverticula. Current Visit: Yes Status: Acute Code(s): R74.8 - ABNORMAL LEVELS OF OTHER SERUM ENZYMES SNOMED Code(s): 346405208 (2) S/P laparoscopic cholecystectomy Current Visit: Yes Status: Acute Code(s): Z90.49 - ACQUIRED ABSENCE OF OTHER SPECIFIED PARTS OF DIGESTIVE TRACT SNOMED Code(s): 918274664 (3) Abdominal pain Current Visit: No Status: Acute Code(s): R10.9 - UNSPECIFIED ABDOMINAL PAIN SNOMED Code(s): 15290962 (4) ETOH abuse Current Visit: No Status: Acute Code(s): F10.10 - ALCOHOL ABUSE, UNCOMPLICATED SNOMED Code(s): 47499851 Plan: 1. Liquid diet. GS consult. 2. CBC CMP daily. Clostridium difficile testing negative. 3. Patient is receiving IV antibiotics. Stool studies if diarrhea recurs. Thank you for this kind referral and the opportunity to participate in the care of your patient. This consultation was discussed with Dr. Blackman. The impression and plan of care have been directed as dictated.
--- NOTE | 2018-10-19 11:31 | P.GSCN ---
History of Present Illness Consult date: 10/19/18 Reason for Consult: Post Delores surgery, abdominal pain Requesting physician: Amaury Berry History of present illness: CHIEF COMPLAINT: Abdominal pain HISTORY OF PRESENT ILLNESS: 43-year-old male with history of alcohol abuse and laparoscopic cholecystectomy performed on 10/05/2018 who presented to the emergency room with abdominal pain. The patient states his pain began on Wednesday. He reports the pain is in his right lower quadrant. He reports multiple episodes of vomiting on Wednesday but denies nausea or vomiting since that time. He also reports episodes of diarrhea prior to coming to the hospital. Vital signs are stable. White count 4.3. Hemoglobin 11.8. C. diff negative. PAST MEDICAL HISTORY: See list. PAST SURGICAL HISTORY: See list. MEDICATIONS: See list. ALLERGIES: See list. SOCIAL HISTORY: No illicit drug use. History of alcohol abuse. REVIEW OF SYSTEMS: CONSTITUTIONAL: Denies fever or chills. HEENT: Denies blurred vision, vision changes, or eye pain. Denies hemoptysis ENDOCRINE: Denies heat or cold intolerance. CARDIOVASCULAR: Denies chest pain or pressure. RESPIRATORY: No shortness of breath. GASTROINTESTINAL: Reports right lower quadrant abdominal pain. Reports nausea and vomiting prior to hospitalization. Reports diarrhea prior to hospitalization. PSYCH: No depression or suicidal ideation HEMATOLOGIC: Denies bleeding disorders. LYMPHATIC: The patient denies any lumps and bumps around the neck. GENITOURINARY: Denies any blood in urine or increased urinary frequency. MUSCULOSKELETAL: Denies myalgias. Denies joint swelling. Denies decreased range of motion beyond patients baseline. SKIN: Denies pruitis. Denies rash. PHYSICAL EXAM: VITAL SIGNS: Currently stable. GENERAL: Well-developed in no acute distress. HEENT: No sclera icterus. Extraocular movements grossly intact. Moist buccal mucosa. Head is atraumatic, normocephalic. Hears conversational speech. No nasal drainage. NECK: Supple without lymphadenopathy. CHEST: Non-labored respirations and equal bilateral excursions. CARDIOVASCULAR: Regular rate with regular rhythm. Palpable 2+ radial pulses. ABDOMEN: Soft. Nondistended. Tenderness upon palpation of right lower quadrant. Ecchymosis present surrounding umbilicus. MUSCULOSKELETAL: No clubbing, cyanosis or edema. NEUROLOGIC: No focal or lateralizing signs. Cranial nerves II through XII grossly intact. PSYCH: Appropriate affect. Alert and oriented to person, place and time. SKIN: Well perfused. Good skin turgor. IMAGING: CT abdomen and pelvis: Perhaps mild colitis, correlate clinically. Differential includes product of under distention. No bowel obstruction. No acute finding otherwise seen to account for patient's symptoms. ASSESSMENT: 1. Abdominal pain, nausea, vomiting, diarrhea, CT suggests possible mild colitis 2. History of laparoscopic cholecystectomy September 04 2018 PLAN: 1. Continue antibiotics per medicine 2. Continue liquid diet per GI. Advance per GI. 3. No surgical intervention recommended at this time Nurse practitioner note has been reviewed by physician. Signing provider agrees with the documented findings, assessment, and plan of care. Past Medical History Past Medical History: Hypertension, Seizure Disorder Additional Past Medical History / Comment(s): ulcer, in rehab for etoh abuse History of Any Multi-Drug Resistant Organisms: None Reported Past Surgical History: Cholecystectomy, Ear Surgery Additional Past Surgical History / Comment(s): EGD Past Anesthesia/Blood Transfusion Reactions: No Reported Reaction Past Psychological History: Anxiety, Depression, PTSD Smoking Status: Former smoker Past Alcohol Use History: None Reported Past Drug Use History: None Reported - Past Family History Mother Family Medical History: Thyroid Disorder Father Additional Family Medical History / Comment(s): ETOH Medications and Allergies Home Medications Medication Instructions Recorded Confirmed Type Cholecalciferol [Vitamin D3] 1,000 unit PO DAILY 05/18/17 10/17/18 History Folic Acid 1 mg PO DAILY 05/18/17 10/17/18 History Multivitamins, Thera [Multivitamin 1 tab PO DAILY 05/18/17 10/17/18 History (formulary)] Thiamine [Vitamin B-1] 100 mg PO DAILY 05/18/17 10/17/18 History Pantoprazole [Protonix] 40 mg PO AC-BID #60 tab 05/21/17 10/17/18 Rx Magnesium Oxide 1,200 mg PO BID 08/31/18 10/17/18 History levETIRAcetam [Keppra] 750 mg PO Q12HR 08/31/18 10/17/18 History traZODone HCL [Desyrel] 100 mg PO HS 10/03/18 10/17/18 History HYDROcodone/APAP 7.5-325MG [[place] 1 tab PO Q6HR PRN 3 Days #10 tab 10/06/18 10/17/18 Rx 7.5-325] Metoprolol Tartrate [Lopressor] 12.5 mg PO BID #60 tab 10/06/18 10/17/18 Rx Allergies Allergy/AdvReac Type Severity Reaction Status Date / Time Penicillins Allergy Rash/Hives Verified 10/17/18 18:12 Surgical - Exam Vital Signs Temp Pulse Resp BP Pulse Ox 98.2 F 115 H 22 137/89 99 10/17/18 17:15 10/17/18 17:15 10/17/18 17:15 10/17/18 17:15 10/17/18 17:15 Results - Labs 10/19/18 05:58 10/19/18 05:58 Abnormal Lab Results - Last 24 Hours (Table) 10/19/18 10/19/18 Range/Units 05:58 05:58 RBC 3.54 L (4.30-5.90) m/uL Hgb 11.8 L (13.0-17.5) gm/dL Hct 35.2 L (39.0-53.0) % Sodium 136 L (137-145) mmol/L Potassium 3.3 L (3.5-5.1) mmol/L BUN 2 L (9-20) mg/dL Creatinine 0.49 L (0.66-1.25) mg/dL Calcium 8.3 L (8.4-10.2) mg/dL Alkaline Phosphatase 136 H (38-126) U/L Total Protein 5.8 L (6.3-8.2) g/dL Albumin 3.2 L (3.5-5.0) g/dL Microbiology - Last 24 Hours (Table) 10/17/18 18:25 Urine Culture - Final Urine,Voided Diabetes panel 10/19/18 Range/Units 05:58 Sodium 136 L (137-145) mmol/L Potassium 3.3 L (3.5-5.1) mmol/L Chloride 107 (98-107) mmol/L Carbon Dioxide 22 (22-30) mmol/L BUN 2 L (9-20) mg/dL Creatinine 0.49 L (0.66-1.25) mg/dL Glucose 94 (74-99) mg/dL Calcium 8.3 L (8.4-10.2) mg/dL AST 50 (17-59) U/L ALT 54 (21-72) U/L Alkaline Phosphatase 136 H (38-126) U/L Total Protein 5.8 L (6.3-8.2) g/dL Albumin 3.2 L (3.5-5.0) g/dL Calcium panel 10/19/18 Range/Units 05:58 Calcium 8.3 L (8.4-10.2) mg/dL Albumin 3.2 L (3.5-5.0) g/dL Pituitary panel 10/19/18 Range/Units 05:58 Sodium 136 L (137-145) mmol/L Potassium 3.3 L (3.5-5.1) mmol/L Chloride 107 (98-107) mmol/L Carbon Dioxide 22 (22-30) mmol/L BUN 2 L (9-20) mg/dL Creatinine 0.49 L (0.66-1.25) mg/dL Glucose 94 (74-99) mg/dL Calcium 8.3 L (8.4-10.2) mg/dL Adrenal panel 10/19/18 Range/Units 05:58 Sodium 136 L (137-145) mmol/L Potassium 3.3 L (3.5-5.1) mmol/L Chloride 107 (98-107) mmol/L Carbon Dioxide 22 (22-30) mmol/L BUN 2 L (9-20) mg/dL Creatinine 0.49 L (0.66-1.25) mg/dL Glucose 94 (74-99) mg/dL Calcium 8.3 L (8.4-10.2) mg/dL Total Bilirubin 1.1 (0.2-1.3) mg/dL AST 50 (17-59) U/L ALT 54 (21-72) U/L Alkaline Phosphatase 136 H (38-126) U/L Total Protein 5.8 L (6.3-8.2) g/dL Albumin 3.2 L (3.5-5.0) g/dL
[2018-10-19] MEDS: MULTIVITAMINS, THERA 1 EACH TAB PO SCH (12:20)
[2018-10-19] MEDS: THIAMINE 100 MG TAB PO SCH (12:20)
[2018-10-19] MEDS: FOLIC ACID 1 MG TAB PO SCH (12:20)
[2018-10-19] MEDS: metroNIDAZOLE-NS PMX 500 MG in SALINE 1 100ML.BAG IVPB SCH ×3 (12:21→22:58)
[2018-10-19] MEDS: POTASSIUM CHLORIDE ER 20 MEQ TAB.ER PO SCH ×2 (12:21→16:53)
--- NOTE | 2018-10-19 17:05 | CONS ---
CONSULTATION DATE OF SERVICE: 10/19/2018 REASON FOR CONSULTATION: Colitis, ANTIBIOTIC ALLERGIES. HISTORY OF PRESENT ILLNESS: The patient is a 43-year-old male who is status post laparoscopic cholecystectomy performed by Dr. Miller on 10/05/2018 for acute acalculous cholecystitis. The patient did well postoperatively. However, apparently the patient started having pain in the abdominal area. Pain has been mostly epigastric, right upper quadrant. The patient started having multiple episodes of vomiting, unable to keep anything down. The patient denies having any diarrhea, though. Denies any high-grade fever, rigors or chills or any for sick contacts. With these symptoms, the patient presented to the hospital. The patient was evaluated on arrival. The patient has been afebrile. His white count has been normal. Admission white count was 11.4, though subsequently white count has normalized. The patient's ALT is slightly elevated at 106. Bilirubin was 2.5, though subsequently normalized to 1.1. Because of his PENICILLIN ALLERGY, the patient was started on Azactam. Infectious Disease was consulted for further recommendations regarding antibiotic therapy. Patient also had a CT of abdomen and pelvis that was done without any contrast, and that shows possible colitis or underdistention. It did not show any evidence of any fluid in the gallbladder fossa area. REVIEW OF SYSTEMS: Positive points have been mentioned in the HPI. Rest of the systems negative. PAST MEDICAL HISTORY: 1. Hypertension. 2. Seizure disorder. 3. Acalculous cholecystitis. 4. Peptic ulcer disease. PAST SURGICAL HISTORY: 1. Cholecystectomy. 2. EGD. 3. Ear surgery. PSYCHOLOGICAL HISTORY: 1. Anxiety. 2. Depression. 3. PTSD. SOCIAL HISTORY: Remote history of smoking. Denies drinking or drug use. FAMILY HISTORY: Mother with history of thyroid disorder. Father with history of alcoholism. ALLERGIES: PENICILLIN with a rash. No history of anaphylaxis. CURRENT MEDICATIONS: Include: 1. [place]. 2. Azactam 1 gram q.24. 3. Valium. 4. Lovenox. 5. Folic acid. 6. Keppra. 7. Ativan. 8. Magnesium oxide. 9. Lopressor. 10.Flagyl. 11.Theragran. 12.Protonix. 13.K-Dur. 14.Thiamine. 15.Desyrel. PHYSICAL EXAMINATION: Blood pressure is 110/71 with a pulse of 62, temperature 98.4. He is 96% on room air. General description is a middle-aged male lying in bed in no distress. No tachypnea or accessory muscle of respiration use. HEENT examination shows slight pallor. No scleral icterus. Oral mucosa membrane is dry. No pharyngeal erythema or thrush. NECK: Trachea is central. No thyromegaly. LUNGS: Unlabored breathing. Clear to auscultation anteriorly. No wheeze or crackle. HEART: S1, S2. Regular rate and rhythm. ABDOMEN: Soft. No distention. Mild tenderness in right upper quadrant area. No guarding or rigidity. He did have abdominal wall bruise. EXTREMITIES: No edema of feet. SKIN EXAMINATION: No rash or mass palpable. Neurologically patient is awake, alert, oriented x3. Mood and affect normal. LABS: Hemoglobin 11.8, white count 4.3. Admission white count was 11.4 with a BUN of 2, creatinine 0.49. Bilirubin was elevated and subsequently normalized. DIAGNOSTIC IMPRESSION AND PLAN: 1. Patient admitted to hospital with abdominal pain, nausea and vomiting, but no significant diarrhea in this patient who does have a history of laparoscopic cholecystectomy. The pain has been mostly in the right upper quadrant and epigastric area. However, CT of abdomen and pelvis did not show any evidence of inflammation or fluid within the gallbladder fossa, with a question of possible colitis or underdistention. 2. Patient with PENICILLIN ALLERGY, limiting the number of antibiotics that can be safely used; however, allergy was the rash. No history of anaphylaxis. PLAN: 1. Discontinue the aztreonam. 2. Will start the patient on Rocephin 2 grams daily and continue the Flagyl. 3. If the patient starts having diarrhea or loose stool, will check stool studies. 4. Will follow up on his clinical condition and adjust the medication further if needed. Thank you for this consultation. Will follow this patient along with you. MMODL / IJN: [id number] /
[2018-10-19] MEDS: traZODone HCL 100 MG TAB PO SCH (21:10)
[2018-10-20] MEDS: SODIUM CHLORIDE 0.9% 1,000 ML IV SCH ×2 (04:12→22:15)
[2018-10-20] MEDS: PANTOPRAZOLE 40 MG TABLET PO SCH ×2 (06:32→16:39)
[2018-10-20 06:34] LABS: Basophils % (A) 1 %; Eosinophils # (A) 0.2 k/uL (0-0.7); Eosinophils % (A) 4 %; HCT 36.5 % (39.0-53.0); HGB 12.3 gm/dL (13.0-17.5); Lymphocytes # (A) 1.9 k/uL (1.0-4.8); Lymphocytes % (A) 42 %; MCHC 33.8 g/dL (31.0-37.0); MCV 97.8 fL (80.0-100.0); Mean Platelet Volume 7.6; Monocytes # (A) 0.3 k/uL (0-1.0); Monocytes % (A) 6 %; Neutrophils # (A) 2.1 k/uL (1.3-7.7); Neutrophils % (A) 45 %; Platelet Count 198 k/uL (150-450); RBC 3.73 m/uL (4.30-5.90); RDW 12.8 % (11.5-15.5); WBC 4.6 k/uL (3.8-10.6)
[2018-10-20 06:45] LABS: Anion Gap 9 mmol/L; Blood Urea Nitrogen <2 mg/dL (9-20); Calcium 9.1 mg/dL (8.4-10.2); Carbon Dioxide 22 mmol/L (22-30); Chloride 106 mmol/L (98-107); Glucose 92 mg/dL (74-99); Magnesium 1.5 mg/dL (1.6-2.3); Potassium 3.8 mmol/L (3.5-5.1); Sodium 137 mmol/L (137-145)
--- NOTE | 2018-10-20 08:42 | P.PN ---
Subjective On-call hospitalist had covering Dr. Berry on 10/19/2018 This is a pleasant 43 years old male with past medical history of hypertension and seizure disorder. Presents because of recurrent nausea vomiting, dehydration and abdominal pain. Patient has mild colitis seen on CAT scan of the abdomen. He does not have any more nausea vomiting since admission with medical therapy. He was started on liquid diet and hysterectomy and that will with no more nausea vomiting. However he still have some abdominal pain. Patient states that his lower abdominal pain is starts about one week ago after he had cholecystectomy. The pain is slightly improving from 8 down to 6/10 in severity, sharp increase with movement. Patient had 2 limited bowel movements which are more liquidy, yellowish in color with no clots. Patient states that he's been drinking a lot before but not prior to admission however he did not give more details. Patient is been on CIWA protocol, when I saw the patient looks a little bit anxious and he has tremors still however patient states he feels better than when he came in. Consults has been already called for surgical and GI team by Dr. Berry Liver enzymes are improving 10/20/2018 Patient today is more awake and more, compared to yesterday. And his CIWA score is coming down from 4 down to 0. patient continue on Ativan when necessary. We will lower his active in frequency from 3 times a day to twice a day. Patient still have abdominal pain mainly in the right upper quadrant about 6/10 in severity which gets slightly worse during movement which basically when he goes to the restroom. Patient also had generalized abdominal pain but is less pronounced than the RUQ pain. He is tolerating liquid diet, which can be advanced now. no nausea vomiting. He had a loose and watery bowel movement yesterday. C. diff test is negative. Patient remains on ceftriaxone and Flagyl for now. Continue with IV fluids. Objective - Vital Signs Vital signs: Vital Signs Temp 98 F 10/20/18 03:03 Pulse 65 10/20/18 03:03 Resp 16 10/20/18 03:03 BP 118/85 10/20/18 03:03 Pulse Ox 99 10/20/18 03:03 Intake & Output 10/19/18 10/20/18 10/20/18 18:59 06:59 18:59 Intake Total 1520 1600 480 Balance 1520 1600 480 Weight 78.9 kg Intake: IV 1600 Aztreonam 1 gm In Sodium 1600 Chloride 0.9% 50 ml @ 100 mls/hr IVPB Q12HR [facility] Rx #:[id number] Oral 1520 480 Other: Voiding Method Toilet Toilet Urinal Urinal # Voids 3 - Exam GENERAL: The patient is alert and oriented x3, not in any acute distress. Well developed, well nourished. HEENT: Pupils are round and equally reacting to light. EOMI. No scleral icterus. No conjunctival pallor. Normocephalic, atraumatic. No pharyngeal erythema. No thyromegaly. CARDIOVASCULAR: S1 and S2 present. No murmurs, rubs, or gallops. PULMONARY: Chest is clear to auscultation, no wheezing or crackles. -ABDOMEN: Soft, generalized abdominal tenderness, more on the right upper side. No rebound tenderness nondistended, normoactive bowel sounds. No palpable organomegaly. Bundy sign is negative for acute cholecystitis MUSCULOSKELETAL: No joint swelling or deformity. EXTREMITIES: No cyanosis, clubbing, or pedal edema. NEUROLOGICAL: Gross neurological examination did not reveal any focal deficits. SKIN: No rashes. - Labs CBC & Chem 7: 10/20/18 06:04 10/20/18 06:04 Labs: Abnormal Lab Results - Last 24 Hours (Table) 10/20/18 10/20/18 Range/Units 06:04 06:04 RBC 3.73 L (4.30-5.90) m/uL Hgb 12.3 L (13.0-17.5) gm/dL Hct 36.5 L (39.0-53.0) % BUN <2 L (9-20) mg/dL Creatinine 0.51 L (0.66-1.25) mg/dL Magnesium 1.5 L (1.6-2.3) mg/dL Assessment and Plan Assessment: Postoperative colitis, mostly gastroenteritis Elevated liver enzymes, mild hepatitis, mostly alcohol-related. Improving Alcohol withdrawal Hypomagnesemia, and hypokalemia. History of essential hypertension History of seizure disorder, on Keppra Plan: This is a pleasant 43 years old male who presents with gastroenteritis and alcohol withdrawal. We'll add antibiotics in the form of position and Flagyl. Given the patient's penicillin ALLERGY, and possible interaction of fluoroquinolones with trazodone, we will call ID team to help Send stool for C. diff and a few of recent hospitalization. Continue with see what protocol. Lower family of dose as indicated. Continue with Protonix. Continue with IV fluids. Follow-up GI and surgical team recommendation.Labs and medication were reviewed.. Continue same treatment. Continue with symptomatic treatment. Resume home medication. Monitor lytes and vitals. DVT and GI prophylaxis. Further recommendations of the clinical course of the patient DVT prophylaxis: Subcutaneous Lovenox GI Prophylaxis: Ppi Prognosis is guarded
[2018-10-20] MEDS: metroNIDAZOLE-NS PMX 500 MG in SALINE 1 100ML.BAG IVPB SCH ×3 (09:42→23:22)
[2018-10-20] MEDS: MAGNESIUM SULFATE-D5W PMX 1 GM in DEXTROSE/WATER 1 100ML.BAG IVPB SCH ×2 (09:43→14:49)
[2018-10-20] MEDS: ENOXAPARIN 40 MG/0.4 ML SYRINGE SQ SCH (09:43)
[2018-10-20] MEDS: METOPROLOL TARTRATE 12.5 MG TAB PO SCH ×2 (09:43→22:24)
[2018-10-20] MEDS: MAGNESIUM OXIDE 400 MG TAB PO SCH ×2 (09:44→22:24)
[2018-10-20] MEDS: DIAZEPAM 5 MG TAB PO SCH ×2 (09:44→22:25)
[2018-10-20] MEDS: HYDROcodone/APAP 7.5-325MG 1 EACH TAB PO PRN ×3 (09:53→23:21)
[2018-10-20] MEDS: IOPAMIDOL-300 CONTRAST 30 ML VIAL (ORAL USE) PO PRN ×2 (10:20→11:22)
--- NOTE | 2018-10-20 10:29 | P.PN ---
Subjective Progress Note Date: 10/20/18 CHIEF COMPLAINT: Abdominal pain HISTORY OF PRESENT ILLNESS: Patient seen and examined at the bedside with Dr. Miller. Patient continues to report right sided abdominal pain. He states the pain is worse with movement. Passing flatus. Reports BM. Denies nausea or vomiting. Tolerating clear liquid diet. WBC 4.6. Hemoglobin 12.3. Patient remains on IV antibiotics. PHYSICAL EXAM: VITAL SIGNS: Currently stable. GENERAL: Well-developed in no acute distress. HEENT: No sclera icterus. Extraocular movements grossly intact. Moist buccal mucosa. Head is atraumatic, normocephalic. Hears conversational speech. No nasal drainage. NECK: Supple without lymphadenopathy. CHEST: Non-labored respirations and equal bilateral excursions. CARDIOVASCULAR: Regular rate with regular rhythm. Palpable 2+ radial pulses. ABDOMEN: Soft. Nondistended. Tenderness upon palpation of right upper and lower quadrant. Ecchymosis present surrounding umbilicus. MUSCULOSKELETAL: No clubbing, cyanosis or edema. NEUROLOGIC: No focal or lateralizing signs. Cranial nerves II through XII grossly intact. PSYCH: Appropriate affect. Alert and oriented to person, place and time. SKIN: Well perfused. Good skin turgor. ASSESSMENT: 1. Abdominal pain, nausea, vomiting, diarrhea, CT suggests possible mild colitis 2. History of laparoscopic cholecystectomy September 04 2018 PLAN: 1. Continue antibiotics per medicine 2. Continue liquid diet per GI. Advance per GI. 3. No surgical intervention recommended at this time 4. Dr. Miller recommends repeating CT abdomen/pelvis with oral contrast. Await results. Nurse practitioner note has been reviewed by physician. Signing provider agrees with the documented findings, assessment, and plan of care. Objective - Vital Signs Vital signs: Vital Signs Temp 98 F 10/20/18 03:03 Pulse 65 10/20/18 03:03 Resp 16 10/20/18 03:03 BP 118/85 10/20/18 03:03 Pulse Ox 99 10/20/18 03:03 Intake & Output 10/19/18 10/20/18 10/20/18 18:59 06:59 18:59 Intake Total 1520 1600 480 Balance 1520 1600 480 Weight 78.9 kg Intake: IV 1600 Aztreonam 1 gm In Sodium 1600 Chloride 0.9% 50 ml @ 100 mls/hr IVPB Q12HR [facility] Rx #:[id number] Oral 1520 480 Other: Voiding Method Toilet Toilet Urinal Urinal # Voids 3 - Labs CBC & Chem 7: 10/20/18 06:04 10/20/18 06:04 Labs: Abnormal Lab Results - Last 24 Hours (Table) 10/20/18 10/20/18 Range/Units 06:04 06:04 RBC 3.73 L (4.30-5.90) m/uL Hgb 12.3 L (13.0-17.5) gm/dL Hct 36.5 L (39.0-53.0) % BUN <2 L (9-20) mg/dL Creatinine 0.51 L (0.66-1.25) mg/dL Magnesium 1.5 L (1.6-2.3) mg/dL
--- NOTE | 2018-10-20 11:50 | P.PN ---
Subjective Progress Note Date: 10/20/18 Principal diagnosis: Abdominal pain Afebrile. No diarrhea. LFTs improved yesterday. Requesting diet advance. Repeat CT ordered today. General surgery following. Abdominal pain improved.. Objective - Vital Signs Vital signs: Vital Signs Temp 98.1 F 10/20/18 08:00 Pulse 68 10/20/18 08:00 Resp 18 10/20/18 08:00 BP 123/81 10/20/18 08:00 Pulse Ox 98 10/20/18 08:00 Intake & Output 10/19/18 10/20/18 10/20/18 18:59 06:59 18:59 Intake Total 1520 1600 480 Balance 1520 1600 480 Weight 78.9 kg Intake: IV 1600 Aztreonam 1 gm In Sodium 1600 Chloride 0.9% 50 ml @ 100 mls/hr IVPB Q12HR [facility] Rx #:[id number] Oral 1520 480 Other: Voiding Method Toilet Toilet Toilet Urinal Urinal Urinal # Voids 3 - Exam General appearance: The patient is alert, oriented, in no acute distress. HET: Head is normocephalic and atraumatic. Pupils are equal and reactive. Oropharynx is clear without lesions. Neck: Supple without lymphadenopathy. Trachea midline. Heart: S1 S2. Regular rate and rhythm. Lungs: No crackles or wheezes are heard. Abdomen: Soft, mild tenderness to the bilateral lower abdomen greater than right than left, nondistended with bowel sounds. No peritoneal signs. No palpable organomegaly or masses. Extremities: Normal skin color and turgor. No cyanosis, rash, ulceration, clubbing, or edema. Radial and pedal pulses are 2/4 bilaterally. Neurological: No focal deficits. Strength and sensation are grossly intact. - Labs CBC & Chem 7: 10/20/18 06:04 10/20/18 06:04 Labs: Abnormal Lab Results - Last 24 Hours (Table) 10/20/18 10/20/18 Range/Units 06:04 06:04 RBC 3.73 L (4.30-5.90) m/uL Hgb 12.3 L (13.0-17.5) gm/dL Hct 36.5 L (39.0-53.0) % BUN <2 L (9-20) mg/dL Creatinine 0.51 L (0.66-1.25) mg/dL Magnesium 1.5 L (1.6-2.3) mg/dL Assessment and Plan (1) Elevated liver enzymes Narrative/Plan: 43-year-old male history of EtOH abuse recent laparoscopic cholecystectomy for acalculous cholecystitis presents with acute right-sided abdominal pain elevated transaminases and bilirubin with diarrhea. LFTs have significantly improved bilirubin normalized possible dehydration affect. CT abdomen and pelvis cannot exclude underlying colitis possible underdistention with evidence of cecal diverticula. Current Visit: Yes Status: Acute Code(s): R74.8 - ABNORMAL LEVELS OF OTHER SERUM ENZYMES SNOMED Code(s): 400298768 (2) S/P laparoscopic cholecystectomy Current Visit: Yes Status: Acute Code(s): Z90.49 - ACQUIRED ABSENCE OF OTHER SPECIFIED PARTS OF DIGESTIVE TRACT SNOMED Code(s): 838301600 (3) Abdominal pain Current Visit: No Status: Acute Code(s): R10.9 - UNSPECIFIED ABDOMINAL PAIN SNOMED Code(s): 70323264 (4) ETOH abuse Current Visit: No Status: Acute Code(s): F10.10 - ALCOHOL ABUSE, UNCOMPLICATED SNOMED Code(s): 61886193 Plan: 1. From a GI standpoint no further workup. Continue with present medical therapy. Discharge per medicine and general surgery recommendations. Assessment and plan a care discussed with Dr. Blackman
--- NOTE | 2018-10-20 14:43 | CT ---
EXAMINATION TYPE: CT abdomen pelvis wo con DATE OF EXAM: 10/20/2018 COMPARISON: 10/17/2018 HISTORY: 43-year-old male follow-up Abdominal pain CT DLP: 486.4 mGycm. Automated exposure control for dose reduction was used. TECHNIQUE: Contiguous axial scanning of the abdomen and pelvis without IV contrast. Coronal and sagit teresa reconstructions performed. FINDINGS: Heart normal size without pericardial effusion. Lung bases clear without pleural effusion. Lack of IV contrast limits assessment of the solid abdominal viscera, lymph nodes, and vascular struc tures. Patient is status post cholecystectomy though there is a structure which resembles a small gallbladde r along the gallbladder fossa measuring 2.9 x 2.2 cm, referred to axial images 28 and 29 and coronal image 37. Adrenal glands, kidneys, spleen with anterior splenule, and pancreas show no gross abnormality allowi ng for noncontrast CT. Nonenlarged and borderline to mildly enlarged lymph nodes are present in the lena hepatis region omayra suring up to 1.0 cm. There is mild distention of the second third portion of the duodenum up to 4.0 cm, referred to jackson l images 39 and 43. Small foci of air along the anterior subcutaneous fat of the lower abdomen suggesting subcutaneous in jections. Contrast opacified normal caliber appendix in the right lower quadrant. Oral contrast extends into th e proximal sigmoid. No pericolonic inflammatory change. Nonspecific bladder wall thickening though the bladder is collapsed. No abnormal fluid collection the pelvis or pelvic lymphadenopathy. Bones mild degenerative changes at the hips. No osseous destructive process. IMPRESSION: 1. We note history on the patient's 10/17/2018 CT stating one week postop cholecystectomy. There is a 2.9 x 2.2 cm structure along the gallbladder fossa that resembles a small gallbladder. Postoperative seroma or small biloma are in the differential. Other postsurgical fluid collection not excluded at this time. In retrospect, this may have been present on the 10/17/2018 exam as well. 2. Some borderline and mildly enlarged adjacent lena hepatic lymph nodes likely reactive. There is also mild dilatation of the duodenum to 4.0 cm probably representing a localized ileus.
[2018-10-20] MEDS: THIAMINE 100 MG TAB PO SCH (14:45)
[2018-10-20] MEDS: FOLIC ACID 1 MG TAB PO SCH (14:45)
[2018-10-20] MEDS: MULTIVITAMINS, THERA 1 EACH TAB PO SCH ×2 (14:45→14:46)
--- NOTE | 2018-10-20 15:00 | PN ---
PROGRESS NOTE DATE OF SERVICE: 10/20/2018. REASON FOR FOLLOWUP: Colitis. INTERVAL HISTORY: The patient is currently afebrile. He is breathing comfortably. His nausea, vomiting and right upper quadrant abdominal pain has improved. He did have one loose stool yesterday. None since then. Currently getting contrast for repeat CT abdominal, pelvis. PHYSICAL EXAMINATION: Blood pressure is 115/83 with a pulse of 72, temperature 98.4. He is 99% on room air. General description is a middle-aged male, lying in bed in no distress. RESPIRATORY SYSTEM: Unlabored breathing, clear to auscultation anteriorly. HEART: S1, S2. Regular rate and rhythm. ABDOMEN: Soft, mild tenderness, no guarding or rigidity. EXTREMITIES: No edema of the feet. LABS: Hemoglobin is 12.8, white count of 4.7, BUN of 2, creatinine 0.51. DIAGNOSTIC IMPRESSION AND PLAN: Patient admitted to the hospital with abdominal pain. No nausea, vomiting, diarrhea, with concern for colitis with recent cholecystectomy. Will order a repeat CAT scan today. Patient is currently covered with Rocephin and Flagyl to continue for another month. Will monitor his clinical course closely. Continue supportive care. MMODL / IJN: [id number] /
[2018-10-20] MEDS: traZODone HCL 100 MG TAB PO SCH (22:24)
[2018-10-21 03:56] VITALS: RESP 16
[2018-10-21] MEDS: PANTOPRAZOLE 40 MG TABLET PO SCH (06:16)
[2018-10-21 07:02] LABS: ALT 42 U/L (21-72); AST 35 U/L (17-59); Albumin 3.7 g/dL (3.5-5.0); Alkaline Phosphatase 120 U/L (38-126); Anion Gap 9 mmol/L; Blood Urea Nitrogen 6 mg/dL (9-20); Carbon Dioxide 25 mmol/L (22-30); Chloride 102 mmol/L (98-107); Glucose 103 mg/dL (74-99); Magnesium 1.3 mg/dL (1.6-2.3); Potassium 3.8 mmol/L (3.5-5.1); Sodium 136 mmol/L (137-145); Total Bilirubin 0.6 mg/dL (0.2-1.3); Total Protein 6.4 g/dL (6.3-8.2)
[2018-10-21] MEDS ORDERED: Magnesium Replacement Protocol 1 EACH MISC MISCELLANE PRN (08:26)
[2018-10-21] MEDS ORDERED: Potassium Replacement Protocol 1 EACH MISC MISCELLANE PRN (08:26)
[2018-10-21 08:57] VITALS: TEMP 98
[2018-10-21] MEDS ORDERED: DIAZEPAM 5 MG TAB PO SCH (09:00)
[2018-10-21] MEDS ORDERED: POTASSIUM CHLORIDE ER 20 MEQ TAB.ER PO SCH (09:00)
[2018-10-21] MEDS: ENOXAPARIN 40 MG/0.4 ML SYRINGE SQ SCH (09:06)
[2018-10-21] MEDS: metroNIDAZOLE-NS PMX 500 MG in SALINE 1 100ML.BAG IVPB SCH (09:06)
[2018-10-21] MEDS: MAGNESIUM OXIDE 400 MG TAB PO SCH (09:07)
[2018-10-21] MEDS: HYDROcodone/APAP 7.5-325MG 1 EACH TAB PO PRN ×2 (09:07→15:40)
[2018-10-21] MEDS: METOPROLOL TARTRATE 12.5 MG TAB PO SCH (09:07)
--- NOTE | 2018-10-21 10:17 | P.PN ---
Subjective Progress Note Date: 10/21/18 CHIEF COMPLAINT: Abdominal pain HISTORY OF PRESENT ILLNESS: Patient seen and examined at the bedside. CT scan reviewed. Patient denies pain. Denies nausea or vomiting. Tolerating PO intake. Ambulating in the hallway. PHYSICAL EXAM: VITAL SIGNS: Currently stable. GENERAL: Well-developed in no acute distress. HEENT: No sclera icterus. Extraocular movements grossly intact. Moist buccal mucosa. Head is atraumatic, normocephalic. Hears conversational speech. No nasal drainage. NECK: Supple without lymphadenopathy. CHEST: Non-labored respirations and equal bilateral excursions. CARDIOVASCULAR: Regular rate with regular rhythm. Palpable 2+ radial pulses. ABDOMEN: Soft. Nondistended. Nontender. MUSCULOSKELETAL: No clubbing, cyanosis or edema. NEUROLOGIC: No focal or lateralizing signs. Cranial nerves II through XII grossly intact. PSYCH: Appropriate affect. Alert and oriented to person, place and time. SKIN: Well perfused. Good skin turgor. ASSESSMENT: 1. Abdominal pain, nausea, vomiting, diarrhea, CT suggests possible mild colitis 2. History of laparoscopic cholecystectomy September 04 2018 PLAN: Continue current diet. patient is stable for discharge from a surgical standpoint. we will sign off. please reconsult if needed. Nurse practitioner note has been reviewed by physician. Signing provider agrees with the documented findings, assessment, and plan of care. Objective - Vital Signs Vital signs: Vital Signs Temp 98.0 F 10/21/18 08:00 Pulse 85 10/21/18 08:00 Resp 16 10/21/18 08:00 BP 105/77 10/21/18 08:00 Pulse Ox 96 10/21/18 08:00 Intake & Output 10/20/18 10/21/18 10/21/18 18:59 06:59 18:59 Intake Total 1440 1200 235 Balance 1440 1200 235 Weight 79.6 kg Intake: Intake, IV Titration 450 Amount Sodium Chloride 0.9% 1, 450 000 ml @ 50 mls/hr IV . Q20H [facility] Rx#:[id number] Oral 1440 750 235 Other: Voiding Method Toilet Toilet Toilet Urinal Urinal Urinal # Voids 1 1 - Labs CBC & Chem 7: 10/20/18 06:04 10/21/18 05:51 Labs: Abnormal Lab Results - Last 24 Hours (Table) 10/21/18 Range/Units 05:51 Sodium 136 L (137-145) mmol/L BUN 6 L (9-20) mg/dL Creatinine 0.60 L (0.66-1.25) mg/dL Glucose 103 H (74-99) mg/dL Magnesium 1.3 L (1.6-2.3) mg/dL
[2018-10-21 11:17] VITALS: BP 114/85; PULSE 65
[2018-10-21] MEDS: MAGNESIUM SULFATE-D5W PMX 1 GM in DEXTROSE/WATER 1 100ML.BAG IVPB SCH ×2 (11:17→12:29)
[2018-10-21] MEDS: THIAMINE 100 MG TAB PO SCH (11:17)
[2018-10-21] MEDS: FOLIC ACID 1 MG TAB PO SCH (11:17)
[2018-10-21] MEDS: MULTIVITAMINS, THERA 1 EACH TAB PO SCH (11:17)
[2018-10-21] MEDS: SODIUM CHLORIDE 0.9% 1,000 ML IV SCH (11:22)
--- NOTE | 2018-10-21 14:04 | PN ---
PROGRESS NOTE DATE OF SERVICE: 10/21/2018 REASON FOR FOLLOW UP: Possible postop seroma or infection. INTERVAL HISTORY: The patient is currently afebrile. Patient right upper quadrant abdominal pain has improved down to about 3/10. Patient denies having any nausea, vomiting. No chest pain, shortness of breath, no cough. PHYSICAL EXAMINATION: Blood pressure 140/85, pulse of 75, temperature 98. He is 100% on room air. General description is a middle-aged male, lying in bed in no distress. RESPIRATORY SYSTEM: Unlabored breathing, clear to auscultation anteriorly. HEART: S1, S2. Regular rate and rhythm. ABDOMEN: Some minimal tenderness, right upper quadrant. EXTREMITIES: No edema of the feet. LABS: White count 4.3, BUN of 6, creatinine 0.60. DIAGNOSTIC IMPRESSION AND PLAN: Patient admitted to the hospital with abdominal pain, fever, possible postoperative seroma. Plan at this time is to switch over the antibiotic to Ceftin and Flagyl for about a week with close outpatient followup. Prescription sent to the Pharmacy. Patient advised if a new fever or worsening abdominal pain, vomiting, to let us know right away. MMODL / IJN: [id number] /
[2018-10-21] MEDS ORDERED: metroNIDAZOLE 500 MG TAB PO SCH (16:00)
--- NOTE | 2018-10-21 18:05 | P.DS ---
Providers Date of admission: 10/17/18 21:12 Attending physician: Amaury Berry Consults: 10/18/18 17:03 Consult Physician Routine Consulting Provider: Cristóbal Miller Consult Reason/Comments: POST ANABELLE SURGERY, ABD PAIN Do you want consulting provider notified?: Yes 10/19/18 09:13 Consult Physician Urgent Consulting Provider: Norma Thurman Consult Reason/Comments: colitis , penicillin allergy Do you want consulting provider notified?: Yes Primary care physician: [facility] Course: Diagnoses: Recent history of laparoscopic cholecystectomy, with residual stricture of 2.9 and X2.2 centimeter, could be small gallbladder, versus postop seroma or biloma. Postoperative colitis, mostly gastroenteritis Elevated liver enzymes, mild hepatitis, mostly alcohol-related. Improving Alcohol withdrawal Hypomagnesemia, and hypokalemia. History of essential hypertension History of seizure disorder, on [facility] course This is a pleasant 43 years old male with past medical history of hypertension and seizure disorder. Presents because of recurrent nausea vomiting, dehydration and abdominal pain. Patient has mild colitis seen on CAT scan of the abdomen. He does not have any more nausea vomiting since admission with medical therapy. He was started on liquid diet and he tolerating diet well with no more nausea vomiting. Patient has generalized abdominal pain, but his pain mostly was in the RUQ quadrant with tenderness, no rebound tenderness. Patient had CAT scan which shows ( mild colitis and 2. 9X2.2 centimeters structure along the gallbladder foci that resembles a small gallbladder area postoperative seroma or small biloma are in the differential. Other postsurgical fluid collection not excluded.) As per radiologist's report. Patient has been evaluated by GI and surgical team. No plan for surgical intervention and both teams from surgery and GI they cleared the patient for discharge. Patient has been treated with antibiotics guided by our ID team. His been treated with ceftriaxone 2 g daily and Flagyl. Patient showing significant improvement, his starting diet well, he has loose bowel movement, about 2-3 times per day. Is still have some of abdominal pain especially in the RUQ area but it is improving. Patient also has been improving for alcohol withdrawal, his CIWA score on the discharge day was 0. He did not need any more Ativan when necessary. Patient will be discharged on tapered dose of Vallium/benzodiazepines. Patient consults is doing well otherwise and he is able to move around. He thinks he can be discharged and follow-up as an outpatient. Problems and management plan was discussed with the patient in details and he verbalized understanding and acceptance Patient was found stable and can be discharging guarded prognosis, however he needs follow-up as an outpatient. Patient agrees with the appointments made for him with GI, surgery, PCP and infectious disease and that time and he said he will follow-up. Patient will be discharged on 10 more days of oral antibiotics as per infectious disease recommendation Gen: patient is a AAOx3, no distress CVS: S1-S2, RRR, no murmur Lungs: B/L CTA, no wheezing Abdomen: soft, no distention, no tenderness, positive bowel sounds Extremity: no leg edema or induration Time spent more than 35 minutes Patient Condition at Discharge: Fair Plan - Discharge Summary Discharge Rx Participant: No New Discharge Prescriptions: New Cefuroxime Axetil [Ceftin] 500 mg PO BID #20 tab metroNIDAZOLE [Flagyl] 500 mg PO TID #30 tab Diazepam [Valium] 2 mg PO DIRECTED 3 Days #2 tab Continue Folic Acid 1 mg PO DAILY Cholecalciferol [Vitamin D3] 1,000 unit PO DAILY Thiamine [Vitamin B-1] 100 mg PO DAILY Multivitamins, Thera [Multivitamin (formulary)] 1 tab PO DAILY Pantoprazole [Protonix] 40 mg PO AC-BID #60 tab Magnesium Oxide 1,200 mg PO BID levETIRAcetam [Keppra] 750 mg PO Q12HR traZODone HCL [Desyrel] 100 mg PO HS HYDROcodone/APAP 7.5-325MG [[place] 7.5-325] 1 tab PO Q6HR PRN 3 Days #10 tab PRN Reason: Pain Metoprolol Tartrate [Lopressor] 12.5 mg PO BID #60 tab Discharge Medication List Cholecalciferol [Vitamin D3] 1,000 unit PO DAILY 05/18/17 [History] Folic Acid 1 mg PO DAILY 05/18/17 [History] Multivitamins, Thera [Multivitamin (formulary)] 1 tab PO DAILY 05/18/17 [History] Thiamine [Vitamin B-1] 100 mg PO DAILY 05/18/17 [History] Pantoprazole [Protonix] 40 mg PO AC-BID #60 tab 05/21/17 [Rx] Magnesium Oxide 1,200 mg PO BID 08/31/18 [History] levETIRAcetam [Keppra] 750 mg PO Q12HR 08/31/18 [History] traZODone HCL [Desyrel] 100 mg PO HS 10/03/18 [History] HYDROcodone/APAP 7.5-325MG [[place] 7.5-325] 1 tab PO Q6HR PRN 3 Days #10 tab 10/06/18 [Rx] Metoprolol Tartrate [Lopressor] 12.5 mg PO BID #60 tab 10/06/18 [Rx] Cefuroxime Axetil [Ceftin] 500 mg PO BID #20 tab 10/21/18 [Rx] Diazepam [Valium] 2 mg PO DIRECTED 3 Days #2 tab 10/21/18 [Rx] metroNIDAZOLE [Flagyl] 500 mg PO TID #30 tab 10/21/18 [Rx] Follow up Appointment(s)/Referral(s): Flex Blackman MD [STAFF PHYSICIAN] - 11/03/18 6:15 pm ( GI for colitis) Zane Kapadia MD [Primary Care Provider] - 10/27/18 5:00 pm () Norma Thurman MD [STAFF PHYSICIAN] - 11/01/18 1:45 pm (Wednesday) Cristóbal Miller MD [STAFF PHYSICIAN] - 11/01/18 3:30 pm (Wednesday) Patient Instructions/Handouts: Colitis (ED) Discharge Disposition: HOME SELF-CARE
[2018-10-21] MEDS ORDERED: MAGNESIUM OXIDE 400 MG TAB PO SCH (21:00)
== END 2018-10-21 16:58 | disposition home or self-care (01) | DRG 897 ==
LOC: EC 16:53 → 3SCARD 21:12
PROVIDERS: ADMIT Hospitalist; ATTEND Hospitalist
DX: F10.231 Alcohol dependence with withdrawal delirium (principal); E87.2 Acidosis; F33.2 Major depressive disorder, recurrent severe without psychotic features; K86.0 Alcohol-induced chronic pancreatitis; K91.872 Postprocedural seroma of a digestive system organ or structure following a digestive system procedure; E83.42 Hypomagnesemia; K70.10 Alcoholic hepatitis without ascites; D49.0 Neoplasm of unspecified behavior of digestive system; E86.0 Dehydration; E87.6 Hypokalemia; F43.10 Post-traumatic stress disorder, unspecified; G40.909 Epilepsy, unspecified, not intractable, without status epilepticus; I10 Essential (primary) hypertension; K27.9 Peptic ulcer, site unspecified, unspecified as acute or chronic, without hemorrhage or perforation; K52.9 Noninfective gastroenteritis and colitis, unspecified; F41.9 Anxiety disorder, unspecified; K82.8 Other specified diseases of gallbladder; Z79.899 Other long term (current) drug therapy; Z90.49 Acquired absence of other specified parts of digestive tract; Z88.0 Allergy status to penicillin; Z88.1 Allergy status to other antibiotic agents; Z87.891 Personal history of nicotine dependence; Z81.1 Family history of alcohol abuse and dependence; Z83.49 Family history of other endocrine, nutritional and metabolic diseases
CPT/HCPCS: 36415; 71046; 74176; 74177; 80048; 80053; 81001; 82140; 83605; 83690; 83735; 84100; 84484; 85025; 85610; 85730; 87086; 87324; 93005; 96365; 96366; 96368; 96375; 96376; 99291

== ENCOUNTER 2018-11-09 08:28 | Emergency (ER) | payer OTHER ==
[2018-11-09 08:33] VITALS: BP 139/88; PULSE 120; RESP 20; TEMP 98.1
[2018-11-09] MEDS ORDERED: KETOROLAC 30 MG/ML 1 ML VIAL IVP STA (08:54)
[2018-11-09] MEDS ORDERED: MORPHINE SULFATE 4 MG/ML SYRINGE IVP STA (08:54)
[2018-11-09] MEDS ORDERED: LORazepam 2 MG/ML INJ IV STA (08:59)
--- NOTE | 2018-11-09 09:02 | ED ---
Back Pain HPI <Gaetano Swann - Last Filed: 11/09/18 11:30> - General Source: patient, RN notes reviewed, old records reviewed Limitations: no limitations <GriseldaElis rios - Last Filed: 11/09/18 11:37> - General Chief Complaint: Back Pain/Injury Stated Complaint: fall, back injury Time Seen by Provider: 11/09/18 08:36 - History of Present Illness Initial Comments: 43-year-old male presents emergency department today after suspected seizure 3 days ago. Patient reports that he fell down flight of stairs. He complains of right sided back pain. Patient denies any fevers or chills nausea or vomiting or changes in urination. Patient states that he is currently on Keppra. Upon review of patient's chart he does have history of alcohol abuse and recently admitted inpatient for DVTs. Patient first emergency department with some tremors. Patient states that he has no other complaints. (Elis Villalobos) - Related Data Home Medications Medication Instructions Recorded Confirmed Cholecalciferol [Vitamin D3] 1,000 unit PO DAILY 05/18/17 11/09/18 Folic Acid 1 mg PO DAILY 05/18/17 11/09/18 Multivitamins, Thera [Multivitamin 1 tab PO DAILY 05/18/17 11/09/18 (formulary)] Thiamine [Vitamin B-1] 100 mg PO DAILY 05/18/17 11/09/18 Magnesium Oxide 1,200 mg PO BID 08/31/18 11/09/18 levETIRAcetam [Keppra] 750 mg PO Q12HR 08/31/18 11/09/18 traZODone HCL [Desyrel] 100 mg PO HS 10/03/18 11/09/18 Naproxen Sodium [Aleve] 220 mg PO BID PRN 11/09/18 11/09/18 Previous Rx's Medication Instructions Recorded Pantoprazole [Protonix] 40 mg PO AC-BID #60 tab 05/21/17 HYDROcodone/APAP 7.5-325MG [[place] 1 tab PO Q6HR PRN 3 Days #10 tab 10/06/18 7.5-325] Metoprolol Tartrate [Lopressor] 12.5 mg PO BID #60 tab 10/06/18 HYDROcodone/APAP 5-325MG [[place] 1 tab PO Q6HR PRN 3 Days #12 tab 11/09/18 5-325] Allergies Allergy/AdvReac Type Severity Reaction Status Date / Time Penicillins Allergy Rash/Hives Verified 11/09/18 08:56 Review of Systems ROS Other: All systems not noted in ROS Statement are negative. <Gaetano Swann - Last Filed: 11/09/18 11:30> ROS Other: All systems not noted in ROS Statement are negative. <GriseldaElis - Last Filed: 11/09/18 11:37> ROS Statement: Those systems with pertinent positive or pertinent negative responses have been documented in the HPI. Past Medical History Past Medical History: Hypertension, Seizure Disorder Additional Past Medical History / Comment(s): ulcer, in rehab for etoh abuse History of Any Multi-Drug Resistant Organisms: None Reported Past Surgical History: Cholecystectomy, Ear Surgery Additional Past Surgical History / Comment(s): EGD Past Anesthesia/Blood Transfusion Reactions: No Reported Reaction Past Psychological History: Anxiety, Depression, PTSD Smoking Status: Former smoker Past Alcohol Use History: None Reported Past Drug Use History: None Reported - Past Family History Mother Family Medical History: Thyroid Disorder Father Additional Family Medical History / Comment(s): ETOH <Elis Villalobos - Last Filed: 11/09/18 11:37> General Exam Limitations: no limitations General appearance: alert, in no apparent distress Head exam: Present: atraumatic, normocephalic, normal inspection Eye exam: Present: normal appearance, PERRL, EOMI. Absent: scleral icterus, conjunctival injection, periorbital swelling ENT exam: Present: normal exam, mucous membranes moist Neck exam: Present: normal inspection. Absent: tenderness, meningismus, lymphadenopathy Respiratory exam: Present: normal lung sounds bilaterally, other ( has significant contusion over the right ribs. Complains of thoracic and lower lumbar spinal tenderness.). Absent: respiratory distress, wheezes, rales, rhonchi, stridor Cardiovascular Exam: Present: regular rate, normal rhythm, normal heart sounds. Absent: systolic murmur, diastolic murmur, rubs, gallop, clicks GI/Abdominal exam: Present: soft, normal bowel sounds. Absent: distended, tenderness, guarding, rebound, rigid Extremities exam: Present: normal inspection, full ROM, normal capillary refill. Absent: tenderness, pedal edema, joint swelling, calf tenderness Back exam: Present: normal inspection Neurological exam: Present: alert, oriented X3, CN II-XII intact Psychiatric exam: Present: normal affect, normal mood Skin exam: Present: warm, dry, intact, normal color. Absent: rash <Elis Villalobos - Last Filed: 11/09/18 11:37> - General Exam Comments Initial Comments: 43-year-old male. around the (Elis Villalobos) Course Vital Signs 11/09/18 08:28 Temperature 98.1 F Pulse Rate 120 H Respiratory 20 Rate Blood Pressure 139/88 O2 Sat by Pulse 99 Oximetry Medical Decision Making - Lab Data Result diagrams: 11/09/18 09:43 11/09/18 09:43 <Gaetano Swann - Last Filed: 11/09/18 11:30> - Lab Data Result diagrams: 11/09/18 09:43 11/09/18 09:43 - Radiology Data Radiology results: report reviewed <Elis Villalobos - Last Filed: 11/09/18 11:37> - Medical Decision Making I, Mich Swann, personally saw and examined the patient. I have reviewed and agree with the PA findings, including all diagnostic interpretations and treatment plans as written unless otherwise stated. I was present for the jaeger portions of any procedures performed and the inclusive time noted for any critical care statement. (Gaetano Swann) 43-year-old male presents emergency department today 3 days after falling down 10 stairs. He states he believes he had a seizure at that time. He has a history of seizure disorder. Patient complains of some right-sided thoracic and lumbar spine pain as well as some right rib pain. Patient states that he has some bruising noted over his back. Pain with taking a deep breath. Patient will have some tenderness spinal tenderness. X-rays of the thoracic and lumbar spine completed and negative for any acute process. He does have evidence of acute fifth 37 hairline rib fractures. Lab work was reviewed and unremarkable. He is IV pain medication and Ativan. He appeared to be shaky. He does have a history of DTs. At this time Patient will be discharged home with a short prescription of pain medication for the hairline fractures. Patient's told opiates or talking form completed. All questions answered. (Elis Villalobos) - Lab Data Lab Results 11/09/18 11/09/18 11/09/18 Range/Units 09:43 09:43 09:43 WBC 7.4 (3.8-10.6) k/uL RBC 4.81 (4.30-5.90) m/uL Hgb 14.9 (13.0-17.5) gm/dL Hct 45.3 (39.0-53.0) % MCV 94.2 (80.0-100.0) fL MCH 31.0 (25.0-35.0) pg MCHC 32.9 (31.0-37.0) g/dL RDW 12.3 (11.5-15.5) % Plt Count 361 (150-450) k/uL Neutrophils % 61 % Lymphocytes % 32 % Monocytes % 5 % Eosinophils % 1 % Basophils % 1 % Neutrophils # 4.5 (1.3-7.7) k/uL Lymphocytes # 2.3 (1.0-4.8) k/uL Monocytes # 0.4 (0-1.0) k/uL Eosinophils # 0.0 (0-0.7) k/uL Basophils # 0.1 (0-0.2) k/uL PT 10.1 (9.0-12.0) sec INR 0.9 (<1.2) APTT 22.3 (22.0-30.0) sec Sodium 139 (137-145) mmol/L Potassium 5.5 H (3.5-5.1) mmol/L Chloride 104 (98-107) mmol/L Carbon Dioxide 17 L (22-30) mmol/L Anion Gap 18 mmol/L BUN 12 (9-20) mg/dL Creatinine 0.70 (0.66-1.25) mg/dL Est GFR (CKD-EPI)AfAm >90 (>60 ml/min/1.73 sqM) Est GFR (CKD-EPI)NonAf >90 (>60 ml/min/1.73 sqM) Glucose 89 (74-99) mg/dL Calcium 9.3 (8.4-10.2) mg/dL Total Bilirubin 1.2 (0.2-1.3) mg/dL AST 109 H (17-59) U/L ALT 67 (21-72) U/L Alkaline Phosphatase 144 H (38-126) U/L Total Protein 8.0 (6.3-8.2) g/dL Albumin 4.6 (3.5-5.0) g/dL Urine Color Urine Appearance (Clear) Urine pH (5.0-8.0) Ur Specific [place] (1.001-1.035) Urine Protein (Negative) Urine Glucose (UA) (Negative) Urine Ketones (Negative) Urine Blood (Negative) Urine Nitrite (Negative) Urine Bilirubin (Negative) Urine Urobilinogen (<2.0) mg/dL Ur Leukocyte Esterase (Negative) 11/09/18 Range/Units 09:43 WBC (3.8-10.6) k/uL RBC (4.30-5.90) m/uL Hgb (13.0-17.5) gm/dL Hct (39.0-53.0) % MCV (80.0-100.0) fL MCH (25.0-35.0) pg MCHC (31.0-37.0) g/dL RDW (11.5-15.5) % Plt Count (150-450) k/uL Neutrophils % % Lymphocytes % % Monocytes % % Eosinophils % % Basophils % % Neutrophils # (1.3-7.7) k/uL Lymphocytes # (1.0-4.8) k/uL Monocytes # (0-1.0) k/uL Eosinophils # (0-0.7) k/uL Basophils # (0-0.2) k/uL PT (9.0-12.0) sec INR (<1.2) APTT (22.0-30.0) sec Sodium (137-145) mmol/L Potassium (3.5-5.1) mmol/L Chloride (98-107) mmol/L Carbon Dioxide (22-30) mmol/L Anion Gap mmol/L BUN (9-20) mg/dL Creatinine (0.66-1.25) mg/dL Est GFR (CKD-EPI)AfAm (>60 ml/min/1.73 sqM) Est GFR (CKD-EPI)NonAf (>60 ml/min/1.73 sqM) Glucose (74-99) mg/dL Calcium (8.4-10.2) mg/dL Total Bilirubin (0.2-1.3) mg/dL AST (17-59) U/L ALT (21-72) U/L Alkaline Phosphatase (38-126) U/L Total Protein (6.3-8.2) g/dL Albumin (3.5-5.0) g/dL Urine Color Yellow Urine Appearance Clear (Clear) Urine pH 5.0 (5.0-8.0) Ur Specific [place] 1.029 (1.001-1.035) Urine Protein Trace H (Negative) Urine Glucose (UA) Negative (Negative) Urine Ketones 1+ H (Negative) Urine Blood Negative (Negative) Urine Nitrite Negative (Negative) Urine Bilirubin Negative (Negative) Urine Urobilinogen <2.0 (<2.0) mg/dL Ur Leukocyte Esterase Negative (Negative) - Radiology Data Mild hypertrophic degenerative disc changes. Mild superior endplate deformities mild to thoracic vertebral segments are retrospectively stable and chest x-ray 10/17/2018. Therefore chronic. Hypertrophic changes and mild degenerative disc disease lower spine. Correlate for hairline fractures involving the right fifth 6 and seventh. No sizable pneumothorax. (Elis Villalobos) Disposition <Gaetano Swann - Last Filed: 11/09/18 11:30> Is patient prescribed a controlled substance at d/c from ED?: Yes If prescribed controlled substance>3 days was MAPS reviewed?: Prescribed <3 Days If opioid is for acute pain is fill amount 7 days or less?: Yes If Rx opioid, was Start Talking consent form obtained?: Yes Time of Disposition: 11:36 <Elis Villalobos - Last Filed: 11/09/18 11:37> Clinical Impression: Fall, Rib fracture Disposition: HOME SELF-CARE Condition: Good Instructions (If sedation given, give patient instructions): Rib Fracture (ED) Additional Instructions: Advised to use the incentive spirometry every hour. Patient should have close follow-up with primary care doctor. Take the pain medicine as needed. Return to the emergency department if any alarming signs or symptoms occur. Prescriptions: HYDROcodone/APAP 5-325MG [[place] 5-325] 1 tab PO Q6HR PRN 3 Days #12 tab PRN Reason: Pain Referrals: Zane Kapadia MD [Primary Care Provider] - 1-2 days
[2018-11-09 09:57] LABS: Appearance,Urine Clear (Clear); Bilirubin,Urine Negative (Negative); Blood,Urine Negative (Negative); Color,Urine Yellow; Glucose,Urine (UA) Negative (Negative); Ketones,Urine 1+ (Negative); Leukocyte Esterase,Urine Negative (Negative); Nitrite,Urine Negative (Negative); Protein,Urine Trace (Negative); Specific Gravity,Urine 1.029 (1.001-1.035); Urobilinogen,Urine <2.0 mg/dL (<2.0)
[2018-11-09 10:01] LABS: Basophils # (A) 0.1 k/uL (0-0.2); Basophils % (A) 1 %; Eosinophils % (A) 1 %; HCT 45.3 % (39.0-53.0); HGB 14.9 gm/dL (13.0-17.5); Lymphocytes # (A) 2.3 k/uL (1.0-4.8); Lymphocytes % (A) 32 %; MCHC 32.9 g/dL (31.0-37.0); MCV 94.2 fL (80.0-100.0); Mean Platelet Volume 7.1; Monocytes # (A) 0.4 k/uL (0-1.0); Monocytes % (A) 5 %; Neutrophils # (A) 4.5 k/uL (1.3-7.7); Neutrophils % (A) 61 %; Platelet Count 361 k/uL (150-450); RBC 4.81 m/uL (4.30-5.90); RDW 12.3 % (11.5-15.5); WBC 7.4 k/uL (3.8-10.6)
[2018-11-09 10:11] LABS: ALT 67 U/L (21-72); AST 109 U/L (17-59); Albumin 4.6 g/dL (3.5-5.0); Alkaline Phosphatase 144 U/L (38-126); Anion Gap 18 mmol/L; Blood Urea Nitrogen 12 mg/dL (9-20); Calcium 9.3 mg/dL (8.4-10.2); Carbon Dioxide 17 mmol/L (22-30); Chloride 104 mmol/L (98-107); Glucose 89 mg/dL (74-99); Sodium 139 mmol/L (137-145); Total Bilirubin 1.2 mg/dL (0.2-1.3)
--- NOTE | 2018-11-09 10:27 | XR ---
EXAMINATION TYPE: XR chest 2V DATE OF EXAM: 11/09/2018 COMPARISON: 10/17/2018 TECHNIQUE: PA and lateral views submitted. HISTORY: Pain FINDINGS: There are deformities involving the posterior lateral right fifth sixth and seventh ribs. No consolid ation or pleural effusion. No pneumothorax. Heart size normal. Hypertrophic and degenerative change o f the spine. IMPRESSION: 1. Correlate for hairline fractures involving the right fifth, sixth and seventh fractures. No sizabl e pneumothorax.
--- NOTE | 2018-11-09 10:28 | XR ---
EXAM TYPE: LUMBAR SPINE X RAY SERIES COMPARISON: NONE HISTORY: Pain TECHNIQUE: 4 views are submitted. FINDINGS: Alignment is anatomic. The pedicles are intact. The transverse processes are intact. There is no s pondylolysis or spondylolisthesis. Hypertrophic changes are seen with degenerative disc disease prim arily at L4-5 and L5-S1 with facet arthropathy. IMPRESSION: 1. Hypertrophic changes and mild degenerative disc disease lower lumbar spine..
[2018-11-09 10:29] LABS: INR 0.9 (<1.2); Prothrombin Time 10.1 sec (9.0-12.0)
[2018-11-09 10:30] LABS: Partial Thromboplastin Time 22.3 sec (22.0-30.0)
--- NOTE | 2018-11-09 10:30 | XR ---
EXAMINATION TYPE: XR thoracic spine 2V DATE OF EXAM: 11/09/2018 COMPARISON: NONE HISTORY: Pain Alignment is anatomic. There is no compression deformities. There is multilevel hypertrophic and deg enerative disc disease with most marked findings involving the mid and lower thoracic spine. Mild los s of vertebral body height involving the superior endplate of 2 mid thoracic segments are retrospecti vely stable to the chest x-ray of 10/17/2018. IMPRESSION: 1. Multilevel hypertrophic and degenerative changes. 2. Mild superior endplate deformities of 2 mid thoracic vertebral segments are retrospectively stable chest x-ray of 10/17/2018 and therefore chronic.
[2018-11-09 10:54] LABS: Potassium 5.5 mmol/L (3.5-5.1)
== END 2018-11-09 12:09 | disposition home or self-care (01) ==
LOC: EC 08:28
DX: S22.41XA Multiple fractures of ribs, right side, initial encounter for closed fracture (principal); M51.34 Other intervertebral disc degeneration, thoracic region; M51.36 Other intervertebral disc degeneration, lumbar region; F10.11 Alcohol abuse, in remission; G40.909 Epilepsy, unspecified, not intractable, without status epilepticus; F32.9 Major depressive disorder, single episode, unspecified; F41.9 Anxiety disorder, unspecified; Z87.891 Personal history of nicotine dependence; Z88.0 Allergy status to penicillin; Z79.899 Other long term (current) drug therapy; Z86.718 Personal history of other venous thrombosis and embolism; W10.9XXA Fall (on) (from) unspecified stairs and steps, initial encounter
CPT/HCPCS: 36415; 80053; 85025; 85610; 85730; 81003; 72070; 72100; 71046; 99284; 96374; 96375 ×2; J2060; J2270; J1885

== ENCOUNTER 2019-09-13 18:54 | Observation (INO) | payer OTHER ==
[2019-09-13] MEDS ORDERED: SODIUM CHLORIDE 0.9% 500 ML 500 ML IV STA (19:46)
[2019-09-13] MEDS ORDERED: SODIUM CHLORIDE 0.9% 1,000 ML IV STA (19:46)
--- NOTE | 2019-09-13 19:52 | ED ---
General Adult HPI - General Chief complaint: Arrhythmia/Palpitations Stated complaint: Dizzy Time Seen by Provider: 09/13/19 19:10 Source: patient, RN notes reviewed, old records reviewed Mode of arrival: ambulatory Limitations: no limitations - History of Present Illness Initial comments: This is a 44-year-old male who presents emergency Department stating his past medical history significant for alcohol. Patient states he continues to drink and he states he is on the fifth of trauma. Patient states she's been having palpitations on and off for 2 weeks she's been having lightheadedness for 2 weeks. Patient denies any syncopal episode. Patient denies any chest pain palpitations difficulty breathing or shortness of breath. Patient denies any abdominal pain patient denies nausea vomiting diarrhea. Patient denies any headache patient denies numbness weakness. - Related Data Home Medications Medication Instructions Recorded Confirmed Cholecalciferol [Vitamin D3 (25 1,000 unit PO DAILY 05/18/17 11/09/18 Mcg = 1000 Iu)] Folic Acid 1 mg PO DAILY 05/18/17 11/09/18 Multivitamins, Thera [Multivitamin 1 tab PO DAILY 05/18/17 11/09/18 (formulary)] Thiamine [Vitamin B-1] 100 mg PO DAILY 05/18/17 11/09/18 Magnesium Oxide 1,200 mg PO BID 08/31/18 11/09/18 levETIRAcetam [Keppra] 750 mg PO Q12HR 08/31/18 11/09/18 traZODone HCL [Desyrel] 100 mg PO HS 10/03/18 11/09/18 Naproxen Sodium [Aleve] 220 mg PO BID PRN 11/09/18 11/09/18 Previous Rx's Medication Instructions Recorded Pantoprazole [Protonix] 40 mg PO AC-BID #60 tab 05/21/17 HYDROcodone/APAP 7.5-325MG [[place] 1 tab PO Q6HR PRN 3 Days #10 tab 10/06/18 7.5-325] Metoprolol Tartrate [Lopressor] 12.5 mg PO BID #60 tab 10/06/18 HYDROcodone/APAP 5-325MG [[place] 1 tab PO Q6HR PRN 3 Days #12 tab 11/09/18 5-325] Allergies Allergy/AdvReac Type Severity Reaction Status Date / Time Penicillins Allergy Rash/Hives Verified 11/09/18 08:56 Review of Systems ROS Statement: Those systems with pertinent positive or pertinent negative responses have been documented in the HPI. ROS Other: All systems not noted in ROS Statement are negative. Past Medical History Past Medical History: Hypertension, Seizure Disorder Additional Past Medical History / Comment(s): ulcer, in rehab for etoh abuse History of Any Multi-Drug Resistant Organisms: None Reported Past Surgical History: Cholecystectomy, Ear Surgery Additional Past Surgical History / Comment(s): EGD Past Anesthesia/Blood Transfusion Reactions: No Reported Reaction Past Psychological History: Anxiety, Depression, PTSD Smoking Status: Current every day smoker Past Alcohol Use History: Daily Past Drug Use History: None Reported - Past Family History Mother Family Medical History: Thyroid Disorder Father Additional Family Medical History / Comment(s): ETOH General Exam - General Exam Comments Initial Comments: GENERAL: Patient is well-developed and well-nourished. Patient is nontoxic and well- hydrated and is in mild distress. ENT: Neck is soft and supple. No significant lymphadenopathy is noted. Oropharynx is clear. Moist mucous membranes. Neck has full range of motion without eliciting any pain. EYES: The sclera were anicteric and conjunctiva were pink and moist. Extraocular movements were intact and pupils were equal round and reactive to light. Eyelids were unremarkable. PULMONARY: Unlabored respirations. Good breath sounds bilaterally. No audible rales rhonchi or wheezing was noted. CARDIOVASCULAR: There is a regular rate and rhythm without any murmurs gallops or rubs. ABDOMEN: Soft and nontender with normal bowel sounds. SKIN: Skin is clear with no lesions or rashes and otherwise unremarkable. NEUROLOGIC: Patient is alert and oriented x3. Cranial nerves II through XII are grossly intact. Motor and sensory are also intact. Normal speech, volume and content. Symmetrical smile. MUSCULOSKELETAL: Normal extremities with adequate strength and full range of motion. No lower extremity swelling or edema. No calf tenderness. LYMPHATICS: No significant lymphadenopathy is noted PSYCHIATRIC: Normal psychiatric evaluation. Limitations: no limitations Course Vital Signs 09/13/19 09/13/19 19:09 20:28 Temperature 98.4 F Pulse Rate 103 H Pulse Rate [ 84 Pulse Oximetery ] Respiratory 20 20 Rate Blood Pressure 109/72 Blood Pressure 122/83 [Right Arm Sitting] Blood Pressure 117/76 [Right Arm Standing] Blood Pressure 108/73 [Right Arm Supine] O2 Sat by Pulse 99 96 Oximetry Medical Decision Making - Medical Decision Making EKG shows normal sinus rhythm at 77 bpm UT interval 240 QRS is 94 QT interval 392 QTC is 443. Patient's EKG shows no ST segment elevation or depression. Patient's alcohol was 344 he initially told us that he only had 1 drink and he told nursing the same. I went back in to reinterview him he stated he only did have one drink. Patient did not want to attempt to get a ride home he so he will be admitted. - Lab Data Result diagrams: 09/13/19 20:15 Lab Results 09/13/19 09/13/19 09/13/19 Range/Units 20:15 20:15 20:15 PT 9.7 (9.0-12.0) sec INR 0.9 (<1.2) APTT 24.4 (22.0-30.0) sec Sodium 142 (137-145) mmol/L Potassium 4.3 (3.5-5.1) mmol/L Chloride 106 (98-107) mmol/L Carbon Dioxide 26 (22-30) mmol/L Anion Gap 10 mmol/L BUN 10 (9-20) mg/dL Creatinine 0.71 (0.66-1.25) mg/dL Est GFR (CKD-EPI)AfAm >90 (>60 ml/min/1.73 sqM) Est GFR (CKD-EPI)NonAf >90 (>60 ml/min/1.73 sqM) Glucose 114 H (74-99) mg/dL Calcium 8.9 (8.4-10.2) mg/dL Magnesium 1.2 L (1.6-2.3) mg/dL Total Bilirubin 0.4 (0.2-1.3) mg/dL AST 177 H (17-59) U/L ALT 76 H (4-49) U/L Alkaline Phosphatase 145 H (38-126) U/L Total Protein 7.1 (6.3-8.2) g/dL Albumin 4.1 (3.5-5.0) g/dL Urine Opiates Screen Not Detected (NotDetected) Ur Oxycodone Screen Not Detected (NotDetected) Urine Methadone Screen Not Detected (NotDetected) Ur Propoxyphene Screen Not Detected (NotDetected) Ur Barbiturates Screen Not Detected (NotDetected) U Tricyclic Antidepress Not Detected (NotDetected) Ur Phencyclidine Scrn Not Detected (NotDetected) Ur Amphetamines Screen Not Detected (NotDetected) U Methamphetamines Scrn Not Detected (NotDetected) U Benzodiazepines Scrn Not Detected (NotDetected) Urine Cocaine Screen Not Detected (NotDetected) U Marijuana (THC) Screen Not Detected (NotDetected) Serum Alcohol 344 H* mg/dL Disposition Clinical Impression: Alcohol intoxication Disposition: ADMITTED IP TO THIS HOSP Referrals: Zane Kapadia MD [Primary Care Provider] - 1-2 days Time of Disposition: 20:56
[2019-09-13 20:37] LABS: Amphetamine Screen,Urine Not Detected (NotDetected); Barbiturate Screen,Urine Not Detected (NotDetected); Benzodiazepines Screen,Urine Not Detected (NotDetected); Cocaine Screen,Urine Not Detected (NotDetected); Methadone Screen, Urine Not Detected (NotDetected); Opiate Screen,Urine Not Detected (NotDetected); Oxycodone Screen, Urine Not Detected (NotDetected); Phencyclidine Screen,Urine Not Detected (NotDetected); Tricyclic Antidepressant,Urine Not Detected (NotDetected); Urn Cannabinoid Scrn Not Detected (NotDetected)
[2019-09-13 20:39] LABS: ALT 76 U/L (4-49); AST 177 U/L (17-59); African American GFR (CKD) >90 (>60 ml/min/1.73 sqM); Albumin 4.1 g/dL (3.5-5.0); Alkaline Phosphatase 145 U/L (38-126); Anion Gap 10 mmol/L; Blood Urea Nitrogen 10 mg/dL (9-20); Calcium 8.9 mg/dL (8.4-10.2); Carbon Dioxide 26 mmol/L (22-30); Chloride 106 mmol/L (98-107); Glucose 114 mg/dL (74-99); Magnesium 1.2 mg/dL (1.6-2.3); Non-African American GFR(CKD) >90 (>60 ml/min/1.73 sqM); Potassium 4.3 mmol/L (3.5-5.1); Sodium 142 mmol/L (137-145); Total Bilirubin 0.4 mg/dL (0.2-1.3); Total Protein 7.1 g/dL (6.3-8.2)
[2019-09-13 20:51] LABS: Alcohol 344 mg/dL; INR 0.9 (<1.2); Partial Thromboplastin Time 24.4 sec (22.0-30.0); Prothrombin Time 9.7 sec (9.0-12.0)
[2019-09-13] MEDS ORDERED: LORazepam 2 MG/ML INJ IV PRN ×2 (20:58)
[2019-09-13] MEDS ORDERED: THIAMINE 100 MG/ML 2 ML VIAL IM STA (20:58)
[2019-09-13 21:10] LABS: HCT 36.3 % (39.0-53.0); HGB 12.4 gm/dL (13.0-17.5); MCH 32.5 pg (25.0-35.0); MCHC 34.1 g/dL (31.0-37.0); MCV 95.2 fL (80.0-100.0); Mean Platelet Volume 8.9; Platelet Count 124 k/uL (150-450); RBC 3.81 m/uL (4.30-5.90); RDW 13.9 % (11.5-15.5); WBC 3.9 k/uL (3.8-10.6)
[2019-09-13] MEDS: THIAMINE 100 MG TAB PO SCH (21:21)
[2019-09-13 21:30] LABS: Basophils # (M) 0.04 k/uL (0-0.2); Eosinophils # (M) 0.08 k/uL (0-0.7); Lymphocytes # (M) 2.54 k/uL (1.0-4.8); Monocytes # (M) 0.23 k/uL (0-1.0); Neutrophils # (M) 1.01 k/uL (1.3-7.7); Neutrophils % (M) 26 %; Nucleated Red Blood Cells 0 /100 WBC (0-0); Reactive Lymphocytes Present; Total Cells Counted 100; Toxic Vacuolation Present
[2019-09-13] MEDS: DIAZEPAM 5 MG/ML 2 ML INJ IVP SCH (21:59)
[2019-09-13] MEDS: SODIUM CHLORIDE 0.9% 1,000 ML IV SCH (22:47)
[2019-09-13] MEDS: METOPROLOL TARTRATE 12.5 MG TAB PO SCH (23:25)
[2019-09-14] MEDS: MAGNESIUM SULFATE-D5W PMX 1 GM in DEXTROSE/WATER 1 100ML.BAG IVPB SCH ×2 (03:49→04:52)
[2019-09-14] MEDS: DIAZEPAM 5 MG/ML 2 ML INJ IVP SCH ×2 (04:53→12:33)
[2019-09-14 06:47] LABS: Glucose,Whole Blood 92 mg/dL (75-99)
[2019-09-14] MEDS: SODIUM CHLORIDE 0.9% 1,000 ML IV SCH ×2 (08:08→12:37)
[2019-09-14] MEDS: THIAMINE 100 MG TAB PO SCH ×2 (08:09→16:42)
[2019-09-14] MEDS: METOPROLOL TARTRATE 12.5 MG TAB PO SCH ×3 (08:09→21:59)
[2019-09-14] MEDS: LORazepam 2 MG/ML INJ IV PRN ×3 (08:30→22:00)
[2019-09-14 13:40] VITALS: BMI 23.7
[2019-09-14] MEDS ORDERED: COLESTIPOL HCL 2 GM PO SCH (20:30)
[2019-09-14] MEDS ORDERED: THIAMINE 100 MG TAB PO SCH (20:30)
[2019-09-14] MEDS ORDERED: PANTOPRAZOLE 40 MG TABLET PO SCH (20:30)
[2019-09-14] MEDS ORDERED: FOLIC ACID 1 MG TAB PO SCH (20:30)
[2019-09-14] MEDS ORDERED: ENOXAPARIN 40 MG/0.4 ML SYRINGE SQ SCH (20:30)
[2019-09-14] MEDS ORDERED: PARoxetine 20 MG TAB PO SCH (20:30)
[2019-09-14] MEDS ORDERED: PROPRANOLOL LA 60 MG CAP.SA.24H PO SCH (20:30)
--- NOTE | 2019-09-14 20:31 | P.HPIM ---
History of Present Illness H&P Date: 09/14/19 Chief Complaint: Lightheaded History of presenting complaint: This is a 44-year-old patient, of Dr. Degroot who's been drinking alcohol. Retired. Chronic stable medical conditions include peptic ulcer disease, anxiety, depression, seizure disorder, alcoholic hepatitis. Patient now presents to the ER feeling a bit lightheaded and has gone back to drinking again. Drinking about a fifth of vodka. Alcohol level was above 300 the ER. Patient is admitted for the same. Had ordered Lopressor and Valium for DT prevention. When I saw the patient this morning. His anxious slightly restless. Review of systems: GEN.: Anxious EYES: None HEENT: None NECK: None RESPIRATORY: None CARDIOVASCULAR: None GASTROINTESTINAL: None GENITOURINARY: None MUSCULOSKELETAL: None LYMPHATICS: None HEMATOLOGICAL: Minimal tremors PSYCHIATRY: Anxious NEUROLOGICAL: None Past medical history to include: Hypertension, seizure disorder, chronic alcoholism, peptic ulcer disease, pancreatitis Social history: Has been drinking a fifth of vodka for a long time. Has also taken ecstasy in the past. 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 Does smoke one half a pack a day Physical examination: VITAL SIGNS: 98.4, 103, 20, 109/72, 99% room air GENERAL: [BMI 22.7, laying in bed slightly anxious mild tremors. EYES: Pupils equal. Conjunctiva normal. HEENT: External appearance of nose and ears normal, oral cavity grossly normal. NECK: JVD not raised; masses not palpable. HEART: First and second heart sounds are normal; no edema. LUNGS: Respiratory rate normal; clear to auscultation. ABDOMEN: Soft, nontender, liver spleen not palpable, no masses palpable. PSYCH: [Alert and oriented x3; mood and affect anxious l. NEUROLOGICAL: Cranial nerves grossly intact; no facial asymmetry, power and sensation grossly intact. Mild tremors LYMPHATICS: No lymph nodes palpable in the axilla and neck INVESTIGATIONS, reviewed in the clinical context: White count 3.9 hemoglobin 12.4 pressure 4.3 creatinine 10 AST 177 ALT 76 total bilirubin 0.4 Serum alcohol 344 Assessment: -early alcohol withdrawal syndrome -Chronic alcohol dependence -Alcoholic hepatitis -Chronic nicotine dependence patient cigarette smoker until -Anxiety not otherwise specified Plan: Patient is put on Valium scheduled, and schedule Lopressor for withdrawal syndrome and cut back sympathetic drive. Also on the CIWA scale with Ativan when necessary. Started on nicotine patch. IV fluids. Rule out the nurse ablate the patient with supervision as tolerated. Smoking and alcohol counseling: This was done with the patient. Results were discussed. Will be given a nicotine patch. More than 3 minutes were spent on this aspect the case. Past Medical History Past Medical History: Hypertension, Liver Disease, Seizure Disorder Additional Past Medical History / Comment(s): ETOH, etoh withdrawal-tremors, elevated LFT, pancreatitis, PUD, anemia, seizure disorder with last seizure May, 2019, hepatitis A diagnosed when pt was in college, elevated A1C 2019-told to avoid simple sugars, R shoulder torn rotator cuff/shoulder numbness, past gallbladder disease/sepsis-had surgery. History of Any Multi-Drug Resistant Organisms: None Reported Past Surgical History: Cholecystectomy, Ear Surgery Additional Past Surgical History / Comment(s): EGD, colonoscopy, bilateral myringotomies/tubes. Past Anesthesia/Blood Transfusion Reactions: No Reported Reaction, Motion Sickness Smoking Status: Current some day smoker - Past Family History Mother Family Medical History: Thyroid Disorder Father Additional Family Medical History / Comment(s): ETOH Medications and Allergies Home Medications Medication Instructions Recorded Confirmed Type Cholecalciferol [Vitamin D3 (25 1,000 unit PO DAILY 05/18/17 09/13/19 History Mcg = 1000 Iu)] Folic Acid 1 mg PO DAILY 05/18/17 09/13/19 History Thiamine [Vitamin B-1] 100 mg PO DAILY 05/18/17 09/13/19 History Magnesium Oxide 1,200 mg PO BID 08/31/18 09/13/19 History levETIRAcetam [Keppra] 750 mg PO Q12H 08/31/18 09/13/19 History traZODone HCL [Desyrel] 100 mg PO HS 10/03/18 09/13/19 History Colestipol HCl 2 gm PO DAILY 09/13/19 09/13/19 History Multivitamins, Thera [Multivitamin 1 tab PO DAILY 09/13/19 09/13/19 History (formulary)] Ondansetron [Zofran] 4 mg PO Q8H PRN 09/13/19 09/13/19 History PARoxetine [Paxil] 20 mg PO DAILY 09/13/19 09/13/19 History Pantoprazole [Protonix] 40 mg PO DAILY 09/13/19 09/13/19 History Potassium Chloride 10 meq PO DAILY 09/13/19 09/13/19 History Propranolol HCl [Propranolol HCl 120 mg PO DAILY 09/13/19 09/13/19 History ER] Vivitrol 380mg Vial + Dilutent 380 mg IM Q28D 09/13/19 09/13/19 History Allergies Allergy/AdvReac Type Severity Reaction Status Date / Time bupropion [From Wellbutrin] Allergy Unknown Verified 09/13/19 22:43 Penicillins Allergy Rash/Hives Verified 09/13/19 22:43 Physical Exam Vitals: Vital Signs Temp Pulse Pulse Resp BP BP BP 09/14/19 08:00 67 16 130/87 09/14/19 03:10 97.9 F 81 16 09/14/19 01:00 98.4 F 75 16 09/14/19 00:08 65 18 119/83 09/13/19 22:03 72 16 106/77 09/13/19 20:28 84 20 122/83 117/76 09/13/19 19:09 98.4 F 103 H 20 109/72 BP Pulse Ox 09/14/19 08:00 96 09/14/19 03:10 111/79 95 09/14/19 01:00 116/79 93 L 09/14/19 00:08 98 09/13/19 22:03 91 L 09/13/19 20:28 108/73 96 09/13/19 19:09 99 Intake and Output 09/13/19 09/14/19 09/14/19 22:59 06:59 14:59 Other: Weight 77.111 kg 77.111 kg Results CBC & Chem 7: 09/13/19 20:15 09/13/19 20:15 Labs: Abnormal Lab Results - Last 24 Hours (Table) 09/13/19 09/13/19 Range/Units 20:15 20:15 RBC 3.81 L (4.30-5.90) m/uL Hgb 12.4 L (13.0-17.5) gm/dL Hct 36.3 L (39.0-53.0) % Plt Count 124 L (150-450) k/uL Neutrophils # (Manual) 1.01 L (1.3-7.7) k/uL Glucose 114 H (74-99) mg/dL Magnesium 1.2 L (1.6-2.3) mg/dL AST 177 H (17-59) U/L ALT 76 H (4-49) U/L Alkaline Phosphatase 145 H (38-126) U/L Serum Alcohol 344 H* mg/dL Thrombosis Risk Factor Assmnt - Choose All That Apply Any of the Below Risk Factors Present?: Yes Each Factor Represents 1 point: Age 41-60 years Other Risk Factors: No Other congenital or acquired thrombophilia - If yes, enter type in comment: No Thrombosis Risk Factor Assessment Total Risk Factor Score: 1 Thrombosis Risk Factor Assessment Level: Low Risk
[2019-09-14] MEDS ORDERED: MAGNESIUM OXIDE 400 MG TAB PO SCH (21:00)
[2019-09-14] MEDS ORDERED: traZODone HCL 100 MG TAB PO SCH (21:00)
[2019-09-14] MEDS ORDERED: DIAZEPAM 2 MG TAB PO SCH (22:00)
[2019-09-15 04:39] VITALS: BP 124/97; PULSE 93; RESP 16; TEMP 98.4
[2019-09-15] MEDS: SODIUM CHLORIDE 0.9% 1,000 ML IV SCH (04:52)
[2019-09-15] MEDS: LORazepam 2 MG/ML INJ IV PRN (07:25)
[2019-09-15] MEDS ORDERED: MULTIVITAMINS, THERA 1 EACH TAB PO SCH (09:00)
--- NOTE | 2019-09-16 22:40 | P.DS ---
Providers Date of admission: 09/13/19 20:57 Expected date of discharge: 09/15/19 (Left AMA) Attending physician: Amaury Berry Primary [facility] physician: [facility] Course: Chief Complaint: Lightheaded History of presenting complaint: This is a 44-year-old patient, of Dr. Degroot who's been drinking alcohol. Retired. Chronic stable medical conditions include peptic ulcer disease, anxiety, depression, seizure disorder, alcoholic hepatitis. Patient now presents to the ER feeling a bit lightheaded and has gone back to drinking again. Drinking about a fifth of vodka. Alcohol level was above 300 the ER. Patient is admitted for the same. Had ordered Lopressor and Valium for DT prevention. When I saw the patient this morning. His anxious slightly restless. Patient started on Valium, beta oj for alcohol withdrawal symptoms. Counseled. This morning-folder hand patient decided to leave AMA INVESTIGATIONS, reviewed in the clinical context: White count 3.9 hemoglobin 12.4 pressure 4.3 creatinine 10 AST 177 ALT 76 total bilirubin 0.4 Serum alcohol 344 Assessment: -early alcohol withdrawal syndrome -Chronic alcohol dependence -Alcoholic hepatitis -Chronic nicotine dependence patient cigarette smoker until -Anxiety not otherwise specified Plan: Patient left AMA this morning Plan - Discharge Summary Discharge Rx Participant: No New Discharge Prescriptions: No Action Folic Acid 1 mg PO DAILY Cholecalciferol [Vitamin D3 (25 Mcg = 1000 Iu)] 1,000 unit PO DAILY Thiamine [Vitamin B-1] 100 mg PO DAILY Magnesium Oxide 1,200 mg PO BID levETIRAcetam [Keppra] 750 mg PO Q12H traZODone HCL [Desyrel] 100 mg PO HS Pantoprazole [Protonix] 40 mg PO DAILY PARoxetine [Paxil] 20 mg PO DAILY Multivitamins, Thera [Multivitamin (formulary)] 1 tab PO DAILY Colestipol HCl 2 gm PO DAILY Potassium Chloride 10 meq PO DAILY Ondansetron [Zofran] 4 mg PO Q8H PRN PRN Reason: Nausea Vivitrol 380mg Vial + Dilutent 380 mg IM Q28D Propranolol HCl [Propranolol HCl ER] 120 mg PO DAILY Discharge Medication List Cholecalciferol [Vitamin D3 (25 Mcg = 1000 Iu)] 1,000 unit PO DAILY 05/18/17 [History] Folic Acid 1 mg PO DAILY 05/18/17 [History] Thiamine [Vitamin B-1] 100 mg PO DAILY 05/18/17 [History] Magnesium Oxide 1,200 mg PO BID 08/31/18 [History] levETIRAcetam [Keppra] 750 mg PO Q12H 08/31/18 [History] traZODone HCL [Desyrel] 100 mg PO HS 10/03/18 [History] Colestipol HCl 2 gm PO DAILY 09/13/19 [History] Multivitamins, Thera [Multivitamin (formulary)] 1 tab PO DAILY 09/13/19 [History] Ondansetron [Zofran] 4 mg PO Q8H PRN 09/13/19 [History] PARoxetine [Paxil] 20 mg PO DAILY 09/13/19 [History] Pantoprazole [Protonix] 40 mg PO DAILY 09/13/19 [History] Potassium Chloride 10 meq PO DAILY 09/13/19 [History] Propranolol HCl [Propranolol HCl ER] 120 mg PO DAILY 09/13/19 [History] Vivitrol 380mg Vial + Dilutent 380 mg IM Q28D 09/13/19 [History] Follow up Appointment(s)/Referral(s): Zane Kapadia MD [Primary Care Provider] - 1-2 days Discharge Disposition: Left Against Medical Advice
== END 2019-09-15 07:55 | disposition left against medical advice (07) ==
LOC: EC 18:54 → 3SCARD 20:57 → 5NMEDONC 09-14 08:46
PROVIDERS: ADMIT Hospitalist; ATTEND Hospitalist
DX: F10.239 Alcohol dependence with withdrawal, unspecified (principal); Y90.8 Blood alcohol level of 240 mg/100 ml or more; K70.10 Alcoholic hepatitis without ascites; K27.9 Peptic ulcer, site unspecified, unspecified as acute or chronic, without hemorrhage or perforation; G40.909 Epilepsy, unspecified, not intractable, without status epilepticus; F43.10 Post-traumatic stress disorder, unspecified; F32.9 Major depressive disorder, single episode, unspecified; F17.210 Nicotine dependence, cigarettes, uncomplicated; Z53.29 Procedure and treatment not carried out because of patient's decision for other reasons; I10 Essential (primary) hypertension; B15.9 Hepatitis A without hepatic coma; Z79.899 Other long term (current) drug therapy; Z87.11 Personal history of peptic ulcer disease; Z83.49 Family history of other endocrine, nutritional and metabolic diseases
CPT/HCPCS: 96376 ×4; 96361 ×3; 96372 ×2; 96375; 96365; 96366; 99285; 36415; 93005; 80053; 84443; 83735; 84484; 85025; 85610; 85730; 80306; G0378 ×4; G0480; J2060 ×2; J3411; J3360 ×2; J1650; J3475; 80320

== ENCOUNTER 2019-09-24 13:36 | Emergency (ER) | payer OTHER ==
[2019-09-24 13:42] VITALS: RESP 18
[2019-09-24] MEDS ORDERED: SODIUM CHLORIDE 0.9% 1,000 ML IV ONE (14:17)
[2019-09-24] MEDS ORDERED: HYDROmorphone 0.5 MG/0.5 ML SYRINGE IVP STA (14:17)
--- NOTE | 2019-09-24 14:32 | ED ---
General Adult HPI - General Chief complaint: Fall Stated complaint: Fall Time Seen by Provider: 09/24/19 13:58 Source: patient, RN notes reviewed Mode of arrival: ambulatory Limitations: no limitations - History of Present Illness Initial comments: 44-year-old male with a past medical history of hypertension, hepatitis a, chronic alcoholic with last Vivitrol injection 4 days ago presents to emergency department for a chief complaint of fall. Patient states that he felt lightheaded yesterday and then tripped over a stair falling and hitting his head . Patient did not lose consciousness. Denies being on blood thinners. He denies history of sensation of room spinning. States he has a headache at this time. States he does still feel a little bit lightheaded. States he has felt lightheaded for over a month. States he saw his doctor for this and was told his potassium and magnesium were low. Denies chest pain or shortness of breath. Patient does admit to drinking "a few drinks" last night but states that was the last time he drank. He states he only drinks one or 2 beers a day but is a chronic alcoholic. Patient was noted to be admitted about 2 weeks ago for acute intoxication of alcohol.Patient has no other complaints at this time including shortness of breath, chest pain, abdominal pain, nausea or vomiting, headache, or visual changes. - Related Data Home Medications Medication Instructions Recorded Confirmed Cholecalciferol [Vitamin D3 (25 1,000 unit PO DAILY 05/18/17 09/13/19 Mcg = 1000 Iu)] Folic Acid 1 mg PO DAILY 05/18/17 09/13/19 Thiamine [Vitamin B-1] 100 mg PO DAILY 05/18/17 09/13/19 Magnesium Oxide 1,200 mg PO BID 08/31/18 09/13/19 levETIRAcetam [Keppra] 750 mg PO Q12H 08/31/18 09/13/19 traZODone HCL [Desyrel] 100 mg PO HS 10/03/18 09/13/19 Colestipol HCl 2 gm PO DAILY 09/13/19 09/13/19 Multivitamins, Thera [Multivitamin 1 tab PO DAILY 09/13/19 09/13/19 (formulary)] Ondansetron [Zofran] 4 mg PO Q8H PRN 09/13/19 09/13/19 PARoxetine [Paxil] 20 mg PO DAILY 09/13/19 09/13/19 Pantoprazole [Protonix] 40 mg PO DAILY 09/13/19 09/13/19 Potassium Chloride 10 meq PO DAILY 09/13/19 09/13/19 Propranolol HCl [Propranolol HCl 120 mg PO DAILY 09/13/19 09/13/19 ER] Vivitrol 380mg Vial + Dilutent 380 mg IM Q28D 09/13/19 09/13/19 Allergies Allergy/AdvReac Type Severity Reaction Status Date / Time bupropion [From Wellbutrin] Allergy Unknown Verified 09/24/19 13:37 Penicillins Allergy Rash/Hives Verified 09/24/19 13:37 Review of Systems ROS Statement: Those systems with pertinent positive or pertinent negative responses have been documented in the HPI. ROS Other: All systems not noted in ROS Statement are negative. Past Medical History Past Medical History: Hypertension, Liver Disease, Seizure Disorder Additional Past Medical History / Comment(s): ETOH, etoh withdrawal-tremors, elevated LFT, pancreatitis, PUD, anemia, seizure disorder with last seizure May, 2019, hepatitis A diagnosed when pt was in college, elevated A1C 2019-told to avoid simple sugars, R shoulder torn rotator cuff/shoulder numbness, past gallbladder disease/sepsis-had surgery. History of Any Multi-Drug Resistant Organisms: None Reported Past Surgical History: Cholecystectomy, Ear Surgery Additional Past Surgical History / Comment(s): EGD, colonoscopy, bilateral myringotomies/tubes. Past Anesthesia/Blood Transfusion Reactions: No Reported Reaction, Motion Sickness Past Psychological History: Anxiety, Depression, PTSD Smoking Status: Current some day smoker Past Alcohol Use History: Abuse, Daily, Heavy Past Drug Use History: None Reported - Past Family History Mother Family Medical History: Thyroid Disorder Father Additional Family Medical History / Comment(s): ETOH General Exam Limitations: no limitations General appearance: alert, in no apparent distress Head exam: Present: atraumatic (Superficial laceration noted on the left forehead measuring about 2 cm. This is well approximated, non-gaping.), normocephalic, normal inspection Eye exam: Present: normal appearance, PERRL, EOMI, periorbital tenderness (Omid onto the). Absent: scleral icterus, conjunctival injection, periorbital swelling ENT exam: Present: normal exam, normal oropharynx, mucous membranes moist, TM's normal bilaterally, normal external ear exam Neck exam: Present: normal inspection, full ROM. Absent: tenderness, meningismus, lymphadenopathy Respiratory exam: Present: normal lung sounds bilaterally. Absent: respiratory distress, wheezes, rales, rhonchi, stridor Cardiovascular Exam: Present: regular rate, normal rhythm, normal heart sounds. Absent: systolic murmur, diastolic murmur, rubs, gallop, clicks GI/Abdominal exam: Present: soft, normal bowel sounds. Absent: distended, tenderness, guarding, rebound, rigid Neurological exam: Present: alert Course Vital Signs 09/24/19 13:37 Temperature 97.9 F Pulse Rate 98 Respiratory 18 Rate Blood Pressure 125/86 O2 Sat by Pulse 97 Oximetry EKG Findings - EKG Comments: EKG Findings:: Normal sinus rhythm, ventricular rate 70, MT int 134, QTc 451 Medical Decision Making - Medical Decision Making Vitals are stable. Patient is well appearing. He does have a superficial laceration above the left eyebrow. CBC is unremarkable. CMP does show transaminitis which is chronic given patient's history of hepatitis. Magnesium minimally low at 1.5, given oral mag. Urinalysis unremarkable. He does have 1+ ketones and was given fluids. EKG is unremarkable. CT brain and C-spine was obtained. CT brain shows no acute intercranial hemorrhage, mass effect, or midline shift. Globes are intact. CT of the C-spine does show no acute fracture or dislocation. There is degenerative disc disease and hypertrophic changes resulting in foraminal encroachment and suspected canal stenosis. Patient is not having the neurologic symptoms in her arms or legs. This is chronic in nature and I discussed the patient needs an MRI from his primary care provider. He is in agreement. Serum alcohol is 265. Breath alcohol performed 1 hours later and was 211. Patient did not show any signs of tremors here in the emergency department but was given Ativan to prevent this. I discussed with patient our options and patient prefers to go home. He is clinically sober at this time. Ambulatory without difficulty. Patient is having a ride come to the emergency department and nurses visualizing patient before discharge.I discussed this case with attending Dr. Nogueira who agrees with this assessment and treatment plan. - Lab Data Result diagrams: 09/24/19 14:32 09/24/19 14:32 Lab Results 09/24/19 09/24/19 09/24/19 Range/Units 14:32 14:32 15:03 WBC 4.3 (3.8-10.6) k/uL RBC 4.43 (4.30-5.90) m/uL Hgb 14.1 (13.0-17.5) gm/dL Hct 42.3 (39.0-53.0) % MCV 95.6 (80.0-100.0) fL MCH 31.9 (25.0-35.0) pg MCHC 33.4 (31.0-37.0) g/dL RDW 13.8 (11.5-15.5) % Plt Count 314 D (150-450) k/uL Neutrophils % (Manual) 25 % Lymphocytes % (Manual) 65 % Monocytes % (Manual) 8 % Eosinophils % (Manual) 2 % Neutrophils # (Manual) 1.08 L (1.3-7.7) k/uL Lymphocytes # (Manual) 2.80 (1.0-4.8) k/uL Monocytes # (Manual) 0.34 (0-1.0) k/uL Eosinophils # (Manual) 0.09 (0-0.7) k/uL Nucleated RBCs 0 (0-0) /100 WBC Manual Slide Review Performed Reactive Lymphocytes Present Sodium 140 (137-145) mmol/L Potassium 4.2 (3.5-5.1) mmol/L Chloride 100 (98-107) mmol/L Carbon Dioxide 23 (22-30) mmol/L Anion Gap 17 mmol/L BUN 12 (9-20) mg/dL Creatinine 0.65 L (0.66-1.25) mg/dL Est GFR (CKD-EPI)AfAm >90 (>60 ml/min/1.73 sqM) Est GFR (CKD-EPI)NonAf >90 (>60 ml/min/1.73 sqM) Glucose 96 (74-99) mg/dL Calcium 9.3 (8.4-10.2) mg/dL Magnesium 1.5 L (1.6-2.3) mg/dL Total Bilirubin 0.7 (0.2-1.3) mg/dL AST 147 H (17-59) U/L ALT 100 H (4-49) U/L Alkaline Phosphatase 139 H (38-126) U/L Total Protein 8.8 H (6.3-8.2) g/dL Albumin 5.2 H (3.5-5.0) g/dL Urine Color Breanna Urine Appearance Clear (Clear) Urine pH 6.0 (5.0-8.0) Ur Specific [place] 1.015 (1.001-1.035) Urine Protein 2+ (Negative) Urine Glucose (UA) Negative (Negative) Urine Ketones 1+ (Negative) Urine Blood Negative (Negative) Urine Nitrite Negative (Negative) Urine Bilirubin Negative (Negative) Urine Urobilinogen <2.0 (<2.0) mg/dL Ur Leukocyte Esterase Negative (Negative) Urine RBC <1 (0-5) /hpf Urine WBC <1 (0-5) /hpf Hyaline Casts 2 (0-2) /lpf Urine Mucus Many H (None) /hpf Serum Alcohol 265 H* mg/dL Disposition Clinical Impression: Fall, ETOH abuse Disposition: HOME SELF-CARE Condition: Good Instructions (If sedation given, give patient instructions): Fall Prevention (ED), Head Injury (ED) Additional Instructions: Please follow up with primary care in 1-2 days. As discussed you should have an MRI of the cervical spine ordered by primary care. If you have any worsening symptoms return here to the emergency department. Is patient prescribed a controlled substance at d/c from ED?: No Referrals: Zane Kapadia MD [Primary Care Provider] - 1-2 days Time of Disposition: 16:45
[2019-09-24] MEDS ORDERED: DIPH,PERTUS(ACELL)TETVAC-LF 0.5 ML VIAL IM ONE (14:33)
[2019-09-24 14:56] LABS: ALT 100 U/L (4-49); AST 147 U/L (17-59); African American GFR (CKD) >90 (>60 ml/min/1.73 sqM); Albumin 5.2 g/dL (3.5-5.0); Alkaline Phosphatase 139 U/L (38-126); Anion Gap 17 mmol/L; Blood Urea Nitrogen 12 mg/dL (9-20); Calcium 9.3 mg/dL (8.4-10.2); Carbon Dioxide 23 mmol/L (22-30); Chloride 100 mmol/L (98-107); Glucose 96 mg/dL (74-99); Magnesium 1.5 mg/dL (1.6-2.3); Non-African American GFR(CKD) >90 (>60 ml/min/1.73 sqM); Potassium 4.2 mmol/L (3.5-5.1); Sodium 140 mmol/L (137-145); Total Bilirubin 0.7 mg/dL (0.2-1.3); Total Protein 8.8 g/dL (6.3-8.2)
[2019-09-24 14:57] LABS: Alcohol 265 mg/dL
--- NOTE | 2019-09-24 15:02 | CT ---
EXAMINATION TYPE: CT brain moine wo con DATE OF EXAM: 09/24/2019 COMPARISON: HISTORY: Headache and left eye contusion after fall. CT DLP: 1397.4 mGycm Automated exposure control for dose reduction was used. TECHNIQUE: CT scan of the head and cervical spine are performed without contrast. FINDINGS: There is no acute intracranial hemorrhage, mass effect, or midline shift identified. The ventricles and sulci are within normal limits in size. The globes are intact and the visualized sin uses are clear. Small area of soft tissue edema overlying the upper margin of the left orbit and left frontal bone. Osseous structures intact. Cervical spine is visualized in its entirety from C1 through upper thoracic levels and demonstrates s atisfactory alignment without evidence of acute fracture or dislocation. Assessment spinal canal nond iagnostic due to artifact and resolution. Prevertebral soft tissue appears within normal limits. The re is hypertrophic and degenerative disc disease at C5-6 and C6-C7 with the uncovertebral joint hyper trophy. Foraminal encroachment suspected. Posterior spondylosis noted. Canal stenosis not excluded. C hronic appearing deformity at C7 spinous process. IMPRESSION: 1. There is no acute fracture or dislocation evident in the cervical spine. Degenerative disc disease and hypertrophic changes result in foraminal encroachment and suspected canal stenosis. Recommend fo llow-up MRI. 2. No acute intracranial hemorrhage, mass effect, or midline shift is seen.
[2019-09-24] MEDS ORDERED: LORazepam 2 MG/ML INJ IV STA (15:12)
[2019-09-24 15:15] LABS: HCT 42.3 % (39.0-53.0); HGB 14.1 gm/dL (13.0-17.5); MCH 31.9 pg (25.0-35.0); MCHC 33.4 g/dL (31.0-37.0); MCV 95.6 fL (80.0-100.0); Mean Platelet Volume 7.6; RBC 4.43 m/uL (4.30-5.90); RDW 13.8 % (11.5-15.5); WBC 4.3 k/uL (3.8-10.6)
[2019-09-24 15:17] LABS: Platelet Count 314 k/uL (150-450)
[2019-09-24 15:52] LABS: Appearance,Urine Clear (Clear); Bilirubin,Urine Negative (Negative); Color,Urine Amber; Glucose,Urine (UA) Negative (Negative); Ketones,Urine 1+ (Negative); Protein,Urine 2+ (Negative); Specific Gravity,Urine 1.015 (1.001-1.035)
[2019-09-24 15:53] LABS: Blood,Urine Negative (Negative); Leukocyte Esterase,Urine Negative (Negative); Nitrite,Urine Negative (Negative); Urobilinogen,Urine <2.0 mg/dL (<2.0)
[2019-09-24 15:54] LABS: Hyaline Casts,Urine 2 /lpf (0-2); Mucus,Urine Many /hpf; RBC,Urine <1 /hpf (0-5); WBC,Urine <1 /hpf (0-5)
[2019-09-24] MEDS ORDERED: MAGNESIUM OXIDE 400 MG TAB PO STA (15:55)
[2019-09-24 15:58] LABS: Eosinophils # (M) 0.09 k/uL (0-0.7); Monocytes # (M) 0.34 k/uL (0-1.0); Neutrophils # (M) 1.08 k/uL (1.3-7.7); Neutrophils % (M) 25 %; Nucleated Red Blood Cells 0 /100 WBC (0-0); Reactive Lymphocytes Present; Total Cells Counted 100
[2019-09-24 17:51] VITALS: BP 157/89; PULSE 89; TEMP 97.8
== END 2019-09-24 18:44 | disposition home or self-care (01) ==
LOC: EC 13:36
DX: F10.10 Alcohol abuse, uncomplicated (principal); S01.112A Laceration without foreign body of left eyelid and periocular area, initial encounter; B15.9 Hepatitis A without hepatic coma; R82.4 Acetonuria; M50.322 Other cervical disc degeneration at C5-C6 level; R51 Headache; I10 Essential (primary) hypertension; F41.9 Anxiety disorder, unspecified; D64.9 Anemia, unspecified; F32.9 Major depressive disorder, single episode, unspecified; G40.909 Epilepsy, unspecified, not intractable, without status epilepticus; Z23 Encounter for immunization; F17.200 Nicotine dependence, unspecified, uncomplicated; Z79.899 Other long term (current) drug therapy; Z88.0 Allergy status to penicillin; Z88.8 Allergy status to other drugs, medicaments and biological substances; Z87.11 Personal history of peptic ulcer disease; Z90.49 Acquired absence of other specified parts of digestive tract; Z98.890 Other specified postprocedural states; W01.0XXA Fall on same level from slipping, tripping and stumbling without subsequent striking against object, initial encounter
CPT/HCPCS: 36415; 93005; 80053; 83735; 85025; 81001; 72125; 70450; 90715; 99284; 96374; 96375; 96361; 90471; G0480; J2060; J1170; 80320

== ENCOUNTER → 2019-10-09 | Outpatient (CLI) | payer OTHER ==
--- NOTE | 2019-10-09 11:32 | MR ---
EXAMINATION TYPE: MR cervical spine wo con DATE OF EXAM: 10/09/2019 COMPARISON: 09/24/2019 HISTORY: Degenerate disc disease, numbness to r hand TECHNIQUE: Multiplanar, multisequence images of the cervical spine were acquired. C2-C3: No evidence for degenerative disc disease. No disc bulge/herniation or protrusion. No Canal stenosis. Foramina are patent bilaterally. C3-C4: Loss of disc signal. There is mild facet arthropathy and uncovertebral joint hypertrophy. No d isc herniation or canal stenosis. Neural foramina patent. C4-C5: Mild degenerative disc disease with facet arthropathy and uncovertebral joint hypertrophy. The re is severe right foraminal encroachment and mild left foraminal encroachment. There is a broad-base d right paracentral and lateral disc herniation contributing to the foraminal encroachment. C5-C6: Degenerative disc disease with broad-based central disc herniation resulting in mild anterior compression of the spinal cord. Uncovertebral joint hypertrophy and facet arthropathy noted with mode rate left foraminal encroachment and severe right foraminal encroachment C6-C7: Degenerative disc disease with broad-based central disc herniation. There is uncovertebral johnathan nt hypertrophy with severe bilateral foraminal encroachment and moderate central stenosis. No spinal cord contact. Chronic deformity spinous process of C7 stable from previous CT. C7-T1: No evidence for degenerative disc disease. No disc bulge/herniation or protrusion. No Canal stenosis. Foramina are patent bilaterally. Cervical segments are intact. There is normal alignment. Cervical spinal cord is of normal signal. Craniovertebral junction relationships are within normal limits. Incidental note made of disc protr usion on the sagittal image at T1-T2. IMPRESSION: 1. Multilevel degenerative disc disease with broad-based disc herniation C5-C6 resulting in significa nt canal stenosis and mild anterior compression of the spinal cord. Hypertrophic changes contribute t o severe right foraminal encroachment and moderate left foraminal encroachment. 2. Broad-based disc herniation C6-C7 with thecal sac compression and moderate canal stenosis. Severe bilateral foraminal encroachment. No spinal cord contact. 3. Right paracentral and lateral disc broad-based herniation C4-C5 results in moderate to severe righ t-sided foraminal encroachment. Suspect right-sided nerve root impingement correlate for radiculopath y at this level. 4. Sagittal disc bulging T1-T2 not included on the axial images. A [place] level critical message alert has been initiated for Zane Kapadia MD via the [facility] Critical Results System on 10/09/2019 11:29 AM. This message alert has been sent to Zane Kapadia MD via the preferences provided by the clinician for the receipt of Radiology Critical Findings. Message ID [id number].
== END | disposition home or self-care (01) ==
LOC: RADMRIMAIN 09:15
PROVIDERS: ATTEND Internal Medicine
DX: M48.02 Spinal stenosis, cervical region (principal); M50.221 Other cervical disc displacement at C4-C5 level; M50.322 Other cervical disc degeneration at C5-C6 level
CPT/HCPCS: 72141

== ENCOUNTER 2019-10-21 | Emergency (ER) | payer OTHER | END 2019-10-22 01:15 | disposition home or self-care (01) | CPT/HCPCS: 36415; 93005; 80053; 82140; 83690; 83735; 84100; 85025; 99285; 96360; 96361; G0480; 80320 ==

== ENCOUNTER → 2020-09-26 | Outpatient (CLI) | payer OTHER ==
--- NOTE | 2020-09-26 23:30 | MR ---
MRI CERVICAL SPINE: CLINICAL HISTORY: Spondylosis with radiculopathy. Neck pain and numbness extending into right side in to fingers. TECHNIQUE: Multiplanar, multisequence imaging of the cervical spine is performed without IV contrast. COMPARISON: MRI cervical spine October 09, 2019. CT cervical spine September 24, 2019. FINDINGS: Sagittal images of the cervical spine show the craniocervical junction to remain within nor mal limits. The cervical and upper thoracic spinal cord remains normal in caliber and signal. There is levoconvex scoliosis redemonstrated centered in the lower cervical spine. Stable slight grade 1 re trolisthesis C5 on C6. Stable mild disc space narrowing C5-C6 level. Vertebral body heights are maint ained. The bone marrow signal intensity is within normal limits. Axial images as C2-C3 level show new right paracentral disc protrusion minimally effacing anterior la teral thecal sac. Axial images at C3-C4 levels show broad-based right paracentral disc protrusion mildly effacing the a nterolateral thecal sac. Patent bilateral neural foramina. No significant change from prior. Axial images at C4-C5 level showed broad based posterior disc protrusion effacing anterior thecal sac with mild uncovertebral facet degenerative changes bilaterally redemonstrated, there is moderate rig ht-sided neural foraminal narrowing. Disc herniation more prominent from prior. Axial images at C5-C6 level show spondylolisthesis with broad based right paracentral disc protrusion and uncovertebral facet degenerative changes causing effacement of the anterior thecal sac and advan giovanni right and mild to moderate left-sided neural foraminal narrowing. Progression disc herniation fro m prior MRI noted. Axial images at C6-C7 levels with broad-based posterior disc protrusion effacing anterior thecal sac and uncovertebral facet degenerative changes both causing moderate bilateral neural foraminal narrowi ng. No significant change from prior. Axial images at C7-T1 level remain within normal limits. IMPRESSION: Multilevel degenerative changes as detailed above with interval progression in multilevel disc herniation prominence from most recent MRI. Findings somewhat prominent for patient's chronolog ic age. Further details as noted above.
== END | disposition home or self-care (01) ==
LOC: RADMRIMAIN 14:43
PROVIDERS: ATTEND Neurological Surgery
DX: M48.02 Spinal stenosis, cervical region (principal); M50.11 Cervical disc disorder with radiculopathy, high cervical region; M43.12 Spondylolisthesis, cervical region; M47.22 Other spondylosis with radiculopathy, cervical region; M41.82 Other forms of scoliosis, cervical region
CPT/HCPCS: 72141

== ENCOUNTER → 2021-03-05 | Outpatient (CLI) | payer OTHER ==
[2021-03-05 14:35] LABS: Basophils # (A) 0.04 X 10*3/uL (0.00-0.10); Basophils % (A) 0.6 %; Eosinophils # (A) 0.16 X 10*3/uL (0.04-0.35); Eosinophils % (A) 2.4 %; HCT 40.7 % (39.6-50.0); HGB 13.8 g/dL (13.0-17.0); Lymphocytes # (A) 2.62 X 10*3/uL (0.90-5.00); Lymphocytes % (A) 39.2 %; MCH 30.3 pg (27.0-32.0); MCHC 33.9 g/dL (32.0-37.0); MCV 89.5 fL (80.0-97.0); Mean Platelet Volume 9.6 fL (9.5-12.2); Monocytes # (A) 0.73 X 10*3/uL (0.20-1.00); Monocytes % (A) 10.9 %; Neutrophils # (A) 3.13 X 10*3/uL (1.80-7.70); Neutrophils % (A) 46.8 %; Platelet Count 294 X 10*3/uL (140-440); RBC 4.55 X 10*6/uL (4.40-5.60); RDW 11.6 % (11.5-14.5); WBC 6.69 X 10*3/uL (4.50-10.00)
[2021-03-05 16:47] LABS: Hemoglobin A1C 5.9 % (4.0-6.0)
[2021-03-06 00:22] LABS: Hepatitis A Antibody IgM Non-Reactive (Non-Reactive); Hepatitis B Core IgM Non-Reactive (Non-Reactive); Hepatitis B Surface Antigen Non-Reactive (Non-Reactive); Hepatitis C IgG Antibody Non-Reactive (Non-Reactive)
[2021-03-06 20:37] LABS: African American GFR (CKD) 94.1 (60.0-200.0); Albumin 4.8 g/dL (3.80-4.90); Albumin/Globulin Ratio 1.85 (1.60-3.17); Anion Gap 17.5 mmol/L (4.00-12.00); BUN/Creat Ratio 10.91 Ratio (12.00-20.00); Carbon Dioxide 18.5 mmol/L (21.6-31.8); Chol/HDL Ratio 5.73; Globulin 2.6 g/dL (1.6-3.3); Non-African American GFR(CKD) 81.2 (60.0-200.0); Potassium 5.1 mmol/L (3.5-5.5); T4, Free (Free Thyroxine) 1.2 ng/dL (0.80-1.80); Total Bilirubin 0.4 mg/dL (0.2-1.2); Total Protein 7.4 g/dL (6.2-8.2)
== END | disposition home or self-care (01) ==
LOC: LABWHC1 09:28
PROVIDERS: ATTEND Nurse Practitioner Psychiatric/Mental Health
DX: F33.41 Major depressive disorder, recurrent, in partial remission (principal); Z79.899 Other long term (current) drug therapy
CPT/HCPCS: 36415; 80053; 80061; 80074; 83036; 83721; 84439; 84443; 85025

== ENCOUNTER → 2021-07-17 | Outpatient (CLI) | payer OTHER ==
--- NOTE | 2021-07-18 04:43 | MR ---
EXAMINATION TYPE: MR brain wo con DATE OF EXAM: 07/17/2021 COMPARISON: None HISTORY: Seizure disorder Multiplanar multiecho imaging of the brain without contrast. FINDINGS: There is mild cerebral atrophy. There is no mass effect nor midline shift. There is no evidence of in tracranial hemorrhage. Brainstem is intact cerebellum is intact. There is no evidence of cerebral [place]. Sella turcica is normal. There is no evidence of orbital mass. Corpus callosum is intact. Diffusi on images show no evidence of an acute infarct. IMPRESSION: Mild cerebral atrophy. No acute intracranial abnormality.
== END | disposition home or self-care (01) ==
LOC: RADMRIMAIN 15:03
PROVIDERS: ATTEND Psychiatry & Neurology Neurology
DX: G40.909 Epilepsy, unspecified, not intractable, without status epilepticus (principal); G31.9 Degenerative disease of nervous system, unspecified
CPT/HCPCS: 70551

== ENCOUNTER 2021-10-09 11:15 | Day surgery (SDC) | payer OTHER ==
[2021-10-07 16:40] VITALS: BMI 29.0
[~2021-10-09 11:15] MED LIST: LACTATED RINGERS 1,000 ML IV SCH; LIDOCAINE 1% (10MG/ML) FOR IV START INTRADERMA PRN
[2021-10-09 11:38] VITALS: TEMP 97.6
[2021-10-09] MEDS ORDERED: LIDOCAINE 1% INJ 10MG/ML (20 ML MDV) ONE (12:07)
[2021-10-09] MEDS ORDERED: PROPOFOL 10 MG/ML 20 ML VIAL IV ONE (12:07)
--- NOTE | 2021-10-09 12:20 | P.OP ---
Date of Procedure: 10/09/21 Preoperative Diagnosis: Screening colonoscopy Postoperative Diagnosis: Same, normal appearing colon Procedure(s) Performed: Colonoscopy Anesthesia: MAC Surgeon: Roman Velazquez Estimated Blood Loss (ml): 0 Condition: stable Disposition: same day Description of Procedure: Patient is brought operative suite placed in left lateral decubitus position underwent sedation per department of anesthesia timeout performed correct patient correct procedure correct site was verified rectal exam was performed no gross abnormalities are noted scope was passed from the rectum to the cecum with the slowly withdrawn being sure to visualize all saldana of the colon on the way out there was no gross abnormalities noted. Patient tolerated the procedure well there are no apparent complications a need a repeat colonoscopy for screening purposes in 10 years Plan - Discharge Summary New Discharge Prescriptions: No Action Folic Acid 1 mg PO DAILY Cholecalciferol [Vitamin D3 (25 Mcg = 1000 Iu)] 1,000 unit PO BID Thiamine [Vitamin B-1] 100 mg PO DAILY Magnesium Oxide 400 mg PO DAILY traZODone HCL [Desyrel] 100 mg PO HS Pantoprazole [Protonix] 40 mg PO DAILY Propranolol [Inderal] 10 mg PO DAILY Ibuprofen 600 mg PO BID Ascorbic Acid [Vitamin C] 500 mg PO BID Methocarbamol [Robaxin-750] 750 mg PO TID Acetaminophen [Tylenol Extra Strength] 1,000 mg PO BID metFORMIN HCL 500 mg PO BID hydrOXYzine HCL 25 mg PO BID Discharge Medication List Cholecalciferol [Vitamin D3 (25 Mcg = 1000 Iu)] 1,000 unit PO BID 05/18/17 [History] Folic Acid 1 mg PO DAILY 05/18/17 [History] Thiamine [Vitamin B-1] 100 mg PO DAILY 05/18/17 [History] Magnesium Oxide 400 mg PO DAILY 08/31/18 [History] traZODone HCL [Desyrel] 100 mg PO HS 10/03/18 [History] Pantoprazole [Protonix] 40 mg PO DAILY 09/13/19 [History] Acetaminophen [Tylenol Extra Strength] 1,000 mg PO BID 10/07/21 [History] Ascorbic Acid [Vitamin C] 500 mg PO BID 10/07/21 [History] Ibuprofen 600 mg PO BID 10/07/21 [History] Methocarbamol [Robaxin-750] 750 mg PO TID 10/07/21 [History] Propranolol [Inderal] 10 mg PO DAILY 10/07/21 [History] hydrOXYzine HCL 25 mg PO BID 10/07/21 [History] metFORMIN HCL 500 mg PO BID 10/07/21 [History]
[2021-10-09 12:37] VITALS: BP 111/75; PULSE 73; RESP 17
== END 2021-10-09 13:24 | disposition home or self-care (01) ==
LOC: ORWHC2ENDO 11:15
PROVIDERS: ATTEND Student in an Organized Health Care Education/Training Program
DX: Z12.11 Encounter for screening for malignant neoplasm of colon (principal); M19.90 Unspecified osteoarthritis, unspecified site; F32.A Depression, unspecified; I10 Essential (primary) hypertension; E78.5 Hyperlipidemia, unspecified; B15.9 Hepatitis A without hepatic coma; R73.03 Prediabetes; F10.10 Alcohol abuse, uncomplicated; Z90.49 Acquired absence of other specified parts of digestive tract; Z98.1 Arthrodesis status; Z98.890 Other specified postprocedural states; Z80.0 Family history of malignant neoplasm of digestive organs; Z83.3 Family history of diabetes mellitus; F41.9 Anxiety disorder, unspecified; F43.10 Post-traumatic stress disorder, unspecified; G40.89 Other seizures; Z79.84 Long term (current) use of oral hypoglycemic drugs; Z79.899 Other long term (current) drug therapy; Z88.0 Allergy status to penicillin; Z88.8 Allergy status to other drugs, medicaments and biological substances
CPT/HCPCS: J2001; J2704; G0121

== ENCOUNTER → 2022-01-26 | Outpatient (CLI) | payer OTHER ==
[2022-01-26 23:03] LABS: ALT 14 U/L (10-49); AST 30 U/L (14-35)
== END | disposition home or self-care (01) ==
LOC: LABWHC1 14:56
PROVIDERS: ATTEND Podiatrist Foot & Ankle Surgery
DX: R94.5 Abnormal results of liver function studies (principal)
CPT/HCPCS: 36415; 84450; 84460

== ENCOUNTER → 2022-03-16 | Outpatient (CLI) | payer OTHER ==
[2022-03-16 18:02] LABS: ALT 15 U/L (10-49); AST 21 U/L (14-35); Albumin 4.8 g/dL (3.8-4.9); Albumin/Globulin Ratio 2.22 (1.60-3.17); Alkaline Phosphatase 40 U/L (41-126); Bilirubin, Conjugated <0.20 mg/dL (0.20-0.40); Globulin 2.2 g/dL (1.6-3.3); Total Protein 6.9 g/dL (6.2-8.2)
== END | disposition home or self-care (01) ==
LOC: LABWHC1 12:11
PROVIDERS: ATTEND Podiatrist Foot & Ankle Surgery
DX: R74.8 Abnormal levels of other serum enzymes (principal)
CPT/HCPCS: 36415; 80076

== ENCOUNTER 2023-11-02 00:46 | Emergency (ER) | payer BC, OTHER ==
--- NOTE | 2023-11-02 00:57 | ED ---
URI HPI - General Chief Complaint: Upper Respiratory Infection Stated Complaint: COVID, Flu, Left broken foot Time Seen by Provider: 11/02/23 00:57 Source: patient Mode of arrival: EMS Limitations: no limitations - History of Present Illness Initial Comments: 48-year-old male presenting with chief complaint of nausea. Patient states that symptoms started today. He obtained a COVID test at [facility] [address] today which she states was positive. He states that he was given an antibiotic for this, unable to remember the name. States that he had a fever earlier today. He took aspirin which improved the fever. No vomiting. No abdominal pain. No chest pain or difficulty breathing. Patient is also complaining of some left foot pain. States that he broke his foot in 2000 and is having a flareup of his chronic pain. He has no new injury or trauma. No redness or swelling. No numbness or tingling. - Related Data Home Medications Medication Instructions Recorded Confirmed Cholecalciferol [Vitamin D3 (25 1,000 unit PO BID 05/18/17 10/09/21 Mcg = 1000 Iu)] Folic Acid 1 mg PO DAILY 05/18/17 10/09/21 Thiamine [Vitamin B-1] 100 mg PO DAILY 05/18/17 10/09/21 Magnesium Oxide 400 mg PO DAILY 08/31/18 10/09/21 traZODone HCL [Desyrel] 100 mg PO HS 10/03/18 10/09/21 Pantoprazole [Protonix] 40 mg PO DAILY 09/13/19 10/09/21 Acetaminophen [Tylenol Extra 1,000 mg PO BID 10/07/21 10/09/21 Strength] Ascorbic Acid [Vitamin C] 500 mg PO BID 10/07/21 10/09/21 Ibuprofen 600 mg PO BID 10/07/21 10/09/21 Propranolol [Inderal] 10 mg PO DAILY 10/07/21 10/09/21 hydrOXYzine HCL 25 mg PO BID 10/07/21 10/09/21 metFORMIN HCL 500 mg PO BID 10/07/21 10/09/21 methocarbamoL [Robaxin-750] 750 mg PO TID 10/07/21 10/09/21 Previous Rx's Medication Instructions Recorded Ibuprofen [Motrin] 400 mg PO Q6HR PRN #20 tab 11/02/23 Ondansetron Odt [Zofran Odt] 4 mg PO Q8HR PRN #20 tab 11/02/23 Allergies Allergy/AdvReac Type Severity Reaction Status Date / Time bupropion [From Wellbutrin] Allergy Unknown Verified 10/09/21 11:33 Penicillins Allergy Rash/Hives Verified 10/09/21 11:33 Review of Systems ROS Statement: Those systems with pertinent positive or pertinent negative responses have been documented in the HPI. ROS Other: All systems not noted in ROS Statement are negative. Past Medical History Past Medical History: Hypertension, Liver Disease, Seizure Disorder Additional Past Medical History / Comment(s): pancreatitis, anemia, last seizure 2 yrs ago (2019), hepatitis A diagnosed in [facility], R shoulder torn rotator cuff., states pre-diabetic , states taking metformin for weight loss., states covid Aug 03-"slight pneumonia"- denies current symptoms or residual cough. History of Any Multi-Drug Resistant Organisms: None Reported Past Surgical History: Back Surgery, Cholecystectomy, Ear Surgery Additional Past Surgical History / Comment(s): EGD, colonoscopy, bilateral myringotomies/tubes., cervical fusion (october 2020), foot surgery (sep 2020) Past Anesthesia/Blood Transfusion Reactions: No Reported Reaction Past Psychological History: Anxiety, Depression, PTSD Smoking Status: Current every day smoker Past Alcohol Use History: Abuse, Daily, Heavy Past Drug Use History: Cocaine, Marijuana - Past Family History Mother Family Medical History: Thyroid Disorder Father Additional Family Medical History / Comment(s): ETOH General Exam - General Exam Comments Initial Comments: Visual Physical Exam Vital signs reviewed General: Well-appearing, nontoxic, no acute distress. Head: Normocephalic, atraumatic Eyes: PERRLA, EOMI ENT: Airway patent Chest: Nonlabored breathing Skin: No visual rash, normal skin tone Neuro: Alert and oriented 3 Musculoskeletal: No gross abnormalities Limitations: no limitations General appearance: alert, in no apparent distress Head exam: Present: atraumatic, normocephalic Eye exam: Present: normal appearance Neck exam: Present: normal inspection. Absent: meningismus Respiratory exam: Present: normal lung sounds bilaterally. Absent: respiratory distress, wheezes, rales, rhonchi, stridor Cardiovascular Exam: Present: regular rate, normal rhythm, normal heart sounds. Absent: systolic murmur, diastolic murmur, rubs, gallop, clicks Extremities exam: Present: normal inspection, full ROM Left Foot/Toe exam: Present: normal inspection, full ROM. Absent: swelling, deformity, erythema Neurological exam: Present: alert, oriented X3, normal gait Psychiatric exam: Present: normal affect, normal mood Skin exam: Present: warm, dry Course Vital Signs 11/02/23 00:50 Temperature 98.5 F Pulse Rate 64 Respiratory 18 Rate Blood Pressure 133/96 O2 Sat by Pulse 99 Oximetry Medical Decision Making - Medical Decision Making Was pt. sent in by a medical professional or institution (, PA, HOTSHOT SUPERINTENDENT, urgent care, hospital, or detention...) When possible be specific @ -No Did you speak to anyone other than the patient for history (EMS, parent, family, police, friend...)? What history was obtained from this source @ -No Did you review nursing and triage notes (agree or disagree)? Why? @ -I reviewed and agree with nursing and triage notes Were old charts reviewed (outside hosp., previous admission, EMS record, old EKG, old radiological studies, urgent care reports/EKG's, detention records)? Report findings @ -No old charts were reviewed Differential Diagnosis (chest pain, altered mental status, abdominal pain women, abdominal pain men, vaginal bleeding, weakness, fever, dyspnea, syncope, headache, dizziness, GI bleed, back pain, seizure, CVA, palpatations, mental health, musculoskeletal)? @ -Differential Musculoskeletal Muscular strain, contusion, ligament sprain, fracture, arthritis, septic arthritis, bursitis, cellulitis, muscle spasm, nerve compression, DVT, arterial occlusion, herpes zoster, electrolyte abnormality, tumor.... This is not meant to be in all inclusive list EKG interpreted by me (3pts min.). @ -As above X-rays interpreted by me (1pt min.). @ -None done CT interpreted by me (1pt min.). @ -None done U/S interpreted by me (1pt. min.). @ -None done What testing was considered but not performed or refused? (CT, X-rays, U/S, labs)? Why? @ -None What meds were considered but not given or refused? Why? @ -None Did you discuss the management of the patient with other professionals (professionals i.e. , PA, HOTSHOT SUPERINTENDENT, lab, RT, psych nurse, social work nurse, registered associate, teacher, commanding officer garage, case management coordinator)? Give summary @ -No Was smoking cessation discussed for >3mins.? @ -No Was critical care preformed (if so, how long)? @ -No Were there social determinants of health that impacted care today? How? (Homelessness, low income, unemployed, alcoholism, drug addiction, transportation, low edu. Level, literacy, decrease access to med. care, alf, rehab)? @ -No Was there de-escalation of care discussed even if they declined (Discuss DNR or withdrawal of care, Hospice)? DNR status @ -No What co-morbidities impacted this encounter? (DM, HTN, Smoking, COPD, CAD, Cancer, CVA, ARF, Chemo, Hep., AIDS, mental health diagnosis, sleep apnea, morbid obesity)? @ -None Was patient admitted / discharged? Hospital course, mention meds given and route, prescriptions, significant lab abnormalities, going to OR and other pertinent info. @ -48-year-old male presenting with chief complaint of nausea and foot pain. Nausea started today. States that he tested positive for COVID earlier today. He has chronic foot pain after an injury in 2000. No new injury or trauma. History and physical exam are conducted. The patient has a steady gait and walks without difficulty. He is negative for influenza, RSV, COVID. He is given Zofran for nausea and Toradol for pain. Discharged home. Follow-up with PCP. Report back to ER with any new or worsening symptoms. Discussed return parameters and answered all questions. Patient conveyed verbal understanding and agreed to the plan. I discussed this case in detail with my attending Dr. Nogueira Undiagnosed new problem with uncertain prognosis? @ -No Drug Therapy requiring intensive monitoring for toxicity (Heparin, Nitro, Insulin, Cardizem)? @ -No Were any procedures done? @ -No Diagnosis/symptom? @ -Nausea Acute, or Chronic, or Acute on Chronic? @ -Acute Uncomplicated (without systemic symptoms) or Complicated (systemic symptoms)? @ -Uncomplicated Side effects of treatment? @ -No Exacerbation, Progression, or Severe Exacerbation? @ -No Poses a threat to life or bodily function? How? (Chest pain, [place], [place], pneumonia, PE, COPD, DKA, ARF, appy, cholecystitis, CVA, Diverticulitis, Homicidal, Suicidal, threat to staff... and all critical care pts) @ -Unlikely Diagnosis/symptom? @Chronic foot pain Acute, or Chronic, or Acute on Chronic? @Acute on chronic Uncomplicated (without systemic symptoms) or Complicated (systemic symptoms)? @Uncomplicated Side effects of treatment? @None Exacerbation, Progression, or Severe Exacerbation] @No Poses a threat to life or bodily function? @No - Lab Data Lab Results 11/02/23 Range/Units 01:00 Influenza Type A (PCR) Not Detected (Not Detectd) Influenza Type B (PCR) Not Detected (Not Detectd) RSV (PCR) Not Detected (Not Detectd) SARS-CoV-2 (PCR) Not Detected (Not Detectd) Disposition Clinical Impression: Nausea, Chronic pain Disposition: HOME SELF-CARE Condition: Good Instructions (If sedation given, give patient instructions): Chronic Pain (ED), Acute Nausea and Vomiting (ED) Additional Instructions: Follow-up with PCP. Report back to ER with any new or worsening symptoms. Prescriptions: Ibuprofen [Motrin] 400 mg PO Q6HR PRN #20 tab PRN Reason: Pain Ondansetron Odt [Zofran Odt] 4 mg PO Q8HR PRN #20 tab PRN Reason: Nausea Is patient prescribed a controlled substance at d/c from ED?: No Referrals: [facility] [[facility]STAFF] - 1-2 days Time of Disposition: 02:04
[2023-11-02 01:21] VITALS: BP 133/96; PULSE 64; RESP 18; TEMP 98.5
[2023-11-02] MEDS: ONDANSETRON ODT 4 MG TAB PO STA (02:09)
[2023-11-02] MEDS: IBUPROFEN 400 MG TAB PO STA (02:11)
[2023-11-02] MEDS: KETOROLAC 15 MG/ML 1 ML VIAL IM STA (02:22)
== END 2023-11-02 02:38 | disposition home or self-care (01) ==
LOC: EC 00:46
DX: G89.29 Other chronic pain (principal); R11.0 Nausea; F17.200 Nicotine dependence, unspecified, uncomplicated; F12.90 Cannabis use, unspecified, uncomplicated; F14.90 Cocaine use, unspecified, uncomplicated; Z88.0 Allergy status to penicillin; Z88.8 Allergy status to other drugs, medicaments and biological substances
CPT/HCPCS: 87636; 99283; 96372; J1885

== ENCOUNTER 2023-11-10 07:49 | Emergency (ER) | payer BC ==
[2023-11-10 07:54] VITALS: TEMP 98.8
--- NOTE | 2023-11-10 08:11 | ED ---
General Adult HPI - General Chief complaint: Nausea/Vomiting/Diarrhea Stated complaint: Vomiting, Diarrhea Time Seen by Provider: 11/10/23 07:55 Source: patient, RN notes reviewed Mode of arrival: ambulatory Limitations: no limitations - History of Present Illness Initial comments: Patient is a 48-year-old male presenting to the emergency department with nausea vomiting and diarrhea. Symptoms have been present for over a week now, worse the past few days. Patient was diagnosed with both flu and COVID infection 1 week ago. Patient has been having occasional fevers. Patient has diffuse achiness. Patient has both vomiting and diarrhea. Patient feels dehydrated. No cough or dyspnea. - Related Data Home Medications Medication Instructions Recorded Confirmed Cholecalciferol [Vitamin D3 (25 1,000 unit PO BID 05/18/17 10/09/21 Mcg = 1000 Iu)] Folic Acid 1 mg PO DAILY 05/18/17 10/09/21 Thiamine [Vitamin B-1] 100 mg PO DAILY 05/18/17 10/09/21 Magnesium Oxide 400 mg PO DAILY 08/31/18 10/09/21 traZODone HCL [Desyrel] 100 mg PO HS 10/03/18 10/09/21 Pantoprazole [Protonix] 40 mg PO DAILY 09/13/19 10/09/21 Acetaminophen [Tylenol Extra 1,000 mg PO BID 10/07/21 10/09/21 Strength] Ascorbic Acid [Vitamin C] 500 mg PO BID 10/07/21 10/09/21 Ibuprofen 600 mg PO BID 10/07/21 10/09/21 Propranolol [Inderal] 10 mg PO DAILY 10/07/21 10/09/21 hydrOXYzine HCL 25 mg PO BID 10/07/21 10/09/21 metFORMIN HCL 500 mg PO BID 10/07/21 10/09/21 methocarbamoL [Robaxin-750] 750 mg PO TID 10/07/21 10/09/21 Previous Rx's Medication Instructions Recorded Ibuprofen [Motrin] 400 mg PO Q6HR PRN #20 tab 11/02/23 Ondansetron Odt [Zofran Odt] 4 mg PO Q8HR PRN #20 tab 11/02/23 Dicyclomine [Bentyl] 20 mg PO QID PRN #15 tablet 11/10/23 Allergies Allergy/AdvReac Type Severity Reaction Status Date / Time bupropion [From Wellbutrin] Allergy Unknown Verified 10/09/21 11:33 Penicillins Allergy Rash/Hives Verified 10/09/21 11:33 Review of Systems ROS Statement: Those systems with pertinent positive or pertinent negative responses have been documented in the HPI. ROS Other: All systems not noted in ROS Statement are negative. Constitutional: Reports: as per HPI, fever, chills Eyes: Denies: eye pain ENT: Denies: ear pain Respiratory: Denies: cough, dyspnea Cardiovascular: Denies: chest pain Endocrine: Reports: fatigue Gastrointestinal: Reports: abdominal pain, nausea, vomiting, diarrhea Genitourinary: Denies: dysuria Musculoskeletal: Denies: back pain Past Medical History Past Medical History: Hypertension, Liver Disease, Seizure Disorder Additional Past Medical History / Comment(s): pancreatitis, anemia, last seizure 2 yrs ago (2019), hepatitis A diagnosed in [facility], R shoulder torn rotator cuff., states pre-diabetic , states taking metformin for weight loss., states covid Aug 03-"slight pneumonia"- denies current symptoms or residual cough. History of Any Multi-Drug Resistant Organisms: None Reported Past Surgical History: Back Surgery, Cholecystectomy, Ear Surgery Additional Past Surgical History / Comment(s): EGD, colonoscopy, bilateral myringotomies/tubes., cervical fusion (october 2020), foot surgery (sep 2020) Past Anesthesia/Blood Transfusion Reactions: No Reported Reaction Past Psychological History: Anxiety, Depression, PTSD Smoking Status: Current every day smoker Past Alcohol Use History: Abuse, Daily, Heavy Past Drug Use History: Cocaine, Marijuana - Past Family History Mother Family Medical History: Thyroid Disorder Father Additional Family Medical History / Comment(s): ETOH General Exam Limitations: no limitations General appearance: alert, in no apparent distress Head exam: Present: normocephalic Eye exam: Present: normal appearance ENT exam: Present: mucous membranes dry Neck exam: Present: normal inspection Respiratory exam: Present: normal lung sounds bilaterally Cardiovascular Exam: Present: tachycardia GI/Abdominal exam: Present: soft. Absent: distended, tenderness, guarding, rebo und, rigid Extremities exam: Present: normal inspection. Absent: pedal edema, calf tenderness Neurological exam: Present: alert Psychiatric exam: Present: normal affect, normal mood Skin exam: Present: normal color Course Vital Signs 11/10/23 11/10/23 07:51 09:30 Temperature 98.8 F Pulse Rate 133 H 94 Respiratory 28 H 18 Rate Blood Pressure 143/104 129/93 O2 Sat by Pulse 100 97 Oximetry Medical Decision Making - Medical Decision Making Was pt. sent in by a medical professional or institution (SUNG Salvador, TEXTILE MACHINERY INSTRUCTOR, urgent care, hospital, or prison...) When possible be specific @ -No Did you speak to anyone other than the patient for history (EMS, parent, family, police, friend...)? What history was obtained from this source @ -No Did you review nursing and triage notes (agree or disagree)? Why? @ -I reviewed and agree with nursing and triage notes Were old charts reviewed (outside hosp., previous admission, EMS record, old EKG, old radiological studies, urgent care reports/EKG's, prison records)? Report findings @ -No old charts were reviewed Differential Diagnosis (chest pain, altered mental status, abdominal pain women, abdominal pain men, vaginal bleeding, weakness, fever, dyspnea, syncope, headache, dizziness, GI bleed, back pain, seizure, CVA, palpatations, mental health, musculoskeletal)? @ -Differential Abdominal Pain Men: Appendicitis, cholecystitis, diverticulosis, ischemic bowel, pancreatitis, hepatitis, UTI, gastroenteritis, AAA, incarcerated hernia, bowel obstruction, constipation, inflammatory bowel, hepatitis, peptic ulcer disease, splenic infarction, perforated viscus, testicular torsion, this is not meant to be an all-inclusive list EKG interpreted by me (3pts min.). @ -As above X-rays interpreted by me (1pt min.). @ -Chest and abdominal x-ray without acute abnormality CT interpreted by me (1pt min.). @ -None done U/S interpreted by me (1pt. min.). @ -None done What testing was considered but not performed or refused? (CT, X-rays, U/S, labs)? Why? @ -None What meds were considered but not given or refused? Why? @ -None Did you discuss the management of the patient with other professionals (professionals i.e. SUNG Salvador, TEXTILE MACHINERY INSTRUCTOR, lab, RT, psych nurse, aids social worker, assistance coordinator, teacher, staff weapons officer, binder caser)? Give summary @ -No Was smoking cessation discussed for >3mins.? @ -No Was critical care preformed (if so, how long)? @ -No Were there social determinants of health that impacted care today? How? (Homelessness, low income, unemployed, alcoholism, drug addiction, transportation, low edu. Level, literacy, decrease access to med. care, senior living, rehab)? @ -No Was there de-escalation of care discussed even if they declined (Discuss DNR or withdrawal of care, Hospice)? DNR status @ -No What co-morbidities impacted this encounter? (DM, HTN, Smoking, COPD, CAD, Cancer, CVA, ARF, Chemo, Hep., AIDS, mental health diagnosis, sleep apnea, morbid obesity)? @ -None Was patient admitted / discharged? Hospital course, mention meds given and route, prescriptions, significant lab abnormalities, going to OR and other pertinent info. @ -Patient reevaluated and feeling much better. Patient is updated on results and plan. Patient will be discharged with prescription for Bentyl and follow-up with primary care Undiagnosed new problem with uncertain prognosis? @ -No Drug Therapy requiring intensive monitoring for toxicity (Heparin, Nitro, Insulin, Cardizem)? @ -No Were any procedures done? @ -No Diagnosis/symptom? @ -Vomiting, diarrhea Acute, or Chronic, or Acute on Chronic? @ -Acute, acute Uncomplicated (without systemic symptoms) or Complicated (systemic symptoms)? @ -Complicated with hypokalemia Side effects of treatment? @ -No Exacerbation, Progression, or Severe Exacerbation? @ -No Poses a threat to life or bodily function? How? (Chest pain, [place], [place], pneumonia, PE, COPD, DKA, ARF, appy, cholecystitis, CVA, Diverticulitis, Homicidal, Suicidal, threat to staff... and all critical care pts) @ -No - Lab Data Result diagrams: 11/10/23 08:22 11/10/23 08:22 Lab Results 11/10/23 11/10/23 11/10/23 Range/Units 08:22 08:22 08:22 WBC 9.2 (3.8-10.6) k/uL RBC 4.47 (4.30-5.90) m/uL Hgb 14.8 (13.0-17.5) gm/dL Hct 42.9 (39.0-53.0) % MCV 96.0 (80.0-100.0) fL MCH 33.0 (25.0-35.0) pg MCHC 34.4 (31.0-37.0) g/dL RDW 12.2 (11.5-15.5) % Plt Count 176 (150-450) k/uL MPV 8.5 Neutrophils % 57 % Lymphocytes % 33 % Monocytes % 7 % Eosinophils % 1 % Basophils % 0 % Neutrophils # 5.3 (1.3-7.7) k/uL Lymphocytes # 3.0 (1.0-4.8) k/uL Monocytes # 0.7 (0-1.0) k/uL Eosinophils # 0.1 (0-0.7) k/uL Basophils # 0.0 (0-0.2) k/uL PT 10.8 (10.0-12.5) sec INR 1.0 (<1.2) APTT 22.3 (22.0-30.0) sec Sodium 131 L (137-145) mmol/L Potassium 2.9 L (3.5-5.1) mmol/L Chloride 91 L (98-107) mmol/L Carbon Dioxide 19 L (22-30) mmol/L Anion Gap 21 mmol/L BUN 15 (9-20) mg/dL Creatinine 0.73 (0.66-1.25) mg/dL Est GFR (CKD-EPI)AfAm >90 (>60 ml/min/1.73 sqM) Est GFR (CKD-EPI)NonAf >90 (>60 ml/min/1.73 sqM) Glucose 183 H (74-99) mg/dL Calcium 8.8 (8.4-10.2) mg/dL Total Bilirubin 1.6 H (0.2-1.3) mg/dL AST 83 H (17-59) U/L ALT 52 H (4-49) U/L Alkaline Phosphatase 115 (38-126) U/L Total Protein 7.2 (6.3-8.2) g/dL Albumin 4.6 (3.5-5.0) g/dL Amylase 56 (30-110) U/L Lipase 163 (23-300) U/L Serum Alcohol <10 mg/dL Disposition Clinical Impression: Vomiting, Diarrhea Disposition: HOME SELF-CARE Condition: Stable Instructions (If sedation given, give patient instructions): Acute Nausea and Vomiting (ED), Acute Diarrhea (ED) Additional Instructions: Please do follow-up with primary care physician in the next day or 2 for recheck. Have your potassium level rechecked. Return for not tolerating fluids, increased vomiting, pain, diarrhea, fevers, worsening symptoms or other concerns. Prescription has been sent to pharmacy. Prescriptions: Dicyclomine [Bentyl] 20 mg PO QID PRN #15 tablet PRN Reason: Pain Is patient prescribed a controlled substance at d/c from ED?: No Referrals: Nonstaff,Physician [Primary Care Provider] - 1-2 days Vicente Cooper MD [STAFF PHYSICIAN] - 1-2 days Time of Disposition: 10:13
[2023-11-10] MEDS: FAMOTIDINE 20 MG/2 ML VIAL IV STA (08:12)
[2023-11-10] MEDS: SODIUM CHLORIDE 0.9% 1,000 ML IV STA ×2 (08:12→08:13)
[2023-11-10] MEDS: DICYCLOMINE 10 MG/ML 2 ML AMP IM STA (08:12)
[2023-11-10] MEDS: ONDANSETRON 4 MG/2 ML VIAL IVP STA (08:12)
[2023-11-10 08:28] LABS: Basophils % (A) 0 %; Eosinophils # (A) 0.1 k/uL (0-0.7); Eosinophils % (A) 1 %; HCT 42.9 % (39.0-53.0); HGB 14.8 gm/dL (13.0-17.5); Lymphocytes % (A) 33 %; MCHC 34.4 g/dL (31.0-37.0); Mean Platelet Volume 8.5; Monocytes # (A) 0.7 k/uL (0-1.0); Monocytes % (A) 7 %; Neutrophils # (A) 5.3 k/uL (1.3-7.7); Neutrophils % (A) 57 %; Platelet Count 176 k/uL (150-450); RBC 4.47 m/uL (4.30-5.90); RDW 12.2 % (11.5-15.5); WBC 9.2 k/uL (3.8-10.6)
[2023-11-10 08:44] LABS: Partial Thromboplastin Time 22.3 sec (22.0-30.0); Prothrombin Time 10.8 sec (10.0-12.5)
[2023-11-10] MEDS: ACETAMINOPHEN IV (For NPO) 1,000 MG in EMPTY BAG 1 BAG IVPB STA (08:49)
[2023-11-10 09:09] LABS: ALT 52 U/L (4-49); AST 83 U/L (17-59); African American GFR (CKD) >90 (>60 ml/min/1.73 sqM); Albumin 4.6 g/dL (3.5-5.0); Alcohol <10 mg/dL; Alkaline Phosphatase 115 U/L (38-126); Amylase 56 U/L (30-110); Anion Gap 21 mmol/L; Blood Urea Nitrogen 15 mg/dL (9-20); Calcium 8.8 mg/dL (8.4-10.2); Carbon Dioxide 19 mmol/L (22-30); Chloride 91 mmol/L (98-107); Glucose 183 mg/dL (74-99); Lipase 163 U/L (23-300); Non-African American GFR(CKD) >90 (>60 ml/min/1.73 sqM); Potassium 2.9 mmol/L (3.5-5.1); Sodium 131 mmol/L (137-145); Total Bilirubin 1.6 mg/dL (0.2-1.3); Total Protein 7.2 g/dL (6.3-8.2)
--- NOTE | 2023-11-10 09:18 | XR ---
EXAMINATION TYPE: XR chest 2V DATE OF EXAM: 11/10/2023 COMPARISON: 11/09/2018 INDICATION: Fever diarrhea TECHNIQUE: Frontal and lateral views of the chest are obtained. FINDINGS: The heart size is normal. The pulmonary vasculature is normal. The lungs are clear. IMPRESSION: 1. No acute pulmonary process.
--- NOTE | 2023-11-10 09:19 | XR ---
EXAMINATION TYPE: XR KUB DATE OF EXAM: 11/10/2023 COMPARISON: 10/03/2018 INDICATION: Abdomen pain fever diarrhea TECHNIQUE: Single view abdomen frontal upright view FINDINGS: Colonic bowel gas is present. There is a small amount of nonspecific bowel gas the right mid abdomen appears to be colonic. No suspicious air-fluid levels are evident. No free air is evident. Psoas margins are normal. No organomegaly is present. IMPRESSION: 1. Nonspecific abdomen
[2023-11-10] MEDS: POTASSIUM CHLORIDE 10 MEQ in WATER FOR INJECTION 1 100ML.BAG IVPB STA (09:26)
[2023-11-10 09:56] VITALS: BP 129/93; PULSE 94; RESP 18
[2023-11-10] MEDS: POTASSIUM CHLORIDE ER 20 MEQ TAB.ER PO STA (10:12)
== END 2023-11-10 11:55 | disposition home or self-care (01) ==
LOC: EC 07:49
DX: R11.10 Vomiting, unspecified (principal); R19.7 Diarrhea, unspecified; F17.200 Nicotine dependence, unspecified, uncomplicated; F14.90 Cocaine use, unspecified, uncomplicated; F12.90 Cannabis use, unspecified, uncomplicated; Z88.0 Allergy status to penicillin; Z88.8 Allergy status to other drugs, medicaments and biological substances
CPT/HCPCS: 99284; 96372; 96375 ×2; 96361 ×2; 96365; 96368; 36415; 80053; 82150; 83690; 85025; 85610; 85730; 80320; 71046; 74018; J0500; J2405; J3490; J3480; J0131

== ENCOUNTER 2023-11-17 20:47 | Inpatient (IN) | payer BC ==
[2023-11-17 21:38] LABS: VBG PH 7.56 (7.31-7.41)
--- NOTE | 2023-11-17 21:42 | ED ---
General Adult HPI - General Chief complaint: Nausea/Vomiting/Diarrhea Stated complaint: NVD covid+ Time Seen by Provider: 11/17/23 21:06 Source: patient, RN notes reviewed, old records reviewed Mode of arrival: ambulatory Limitations: no limitations - History of Present Illness Initial comments: 48-year-old male presenting with persistent nausea vomiting diarrhea over the past 2 weeks. Patient does report abdominal discomfort. No measured fever. St ates he is tested positive for both coronavirus and influenza. He states he has history of previous nausea vomiting and is on antiemetics at baseline. - Related Data Home Medications Medication Instructions Recorded Confirmed Cholecalciferol [Vitamin D3 (25 1,000 unit PO BID 05/18/17 10/09/21 Mcg = 1000 Iu)] Folic Acid 1 mg PO DAILY 05/18/17 10/09/21 Thiamine [Vitamin B-1] 100 mg PO DAILY 05/18/17 10/09/21 Magnesium Oxide 400 mg PO DAILY 08/31/18 10/09/21 traZODone HCL [Desyrel] 100 mg PO HS 10/03/18 10/09/21 Pantoprazole [Protonix] 40 mg PO DAILY 09/13/19 10/09/21 Acetaminophen [Tylenol Extra 1,000 mg PO BID 10/07/21 10/09/21 Strength] Ascorbic Acid [Vitamin C] 500 mg PO BID 10/07/21 10/09/21 Ibuprofen 600 mg PO BID 10/07/21 10/09/21 Propranolol [Inderal] 10 mg PO DAILY 10/07/21 10/09/21 hydrOXYzine HCL 25 mg PO BID 10/07/21 10/09/21 metFORMIN HCL 500 mg PO BID 10/07/21 10/09/21 methocarbamoL [Robaxin-750] 750 mg PO TID 10/07/21 10/09/21 Previous Rx's Medication Instructions Recorded Ibuprofen [Motrin] 400 mg PO Q6HR PRN #20 tab 11/02/23 Ondansetron Odt [Zofran Odt] 4 mg PO Q8HR PRN #20 tab 11/02/23 Dicyclomine [Bentyl] 20 mg PO QID PRN #15 tablet 11/10/23 Allergies Allergy/AdvReac Type Severity Reaction Status Date / Time bupropion [From Wellbutrin] Allergy Unknown Verified 11/17/23 20:56 Penicillins Allergy Rash/Hives Verified 11/17/23 20:56 Review of Systems ROS Statement: Those systems with pertinent positive or pertinent negative responses have been documented in the HPI. ROS Other: All systems not noted in ROS Statement are negative. 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 History of Any Multi-Drug Resistant Organisms: None Reported Past Surgical History: Back Surgery, Cholecystectomy, Ear Surgery Additional Past Surgical History / Comment(s): EGD, colonoscopy, bilateral myringotomies/tubes., cervical fusion (october 2020), foot surgery (sep 2020) Past Anesthesia/Blood Transfusion Reactions: No Reported Reaction Past Psychological History: Anxiety, Depression, PTSD Smoking Status: Current every day smoker Past Alcohol Use History: Abuse, Daily, Heavy Past Drug Use History: Cocaine, Marijuana - Past Family History Mother Family Medical History: Thyroid Disorder Father Additional Family Medical History / Comment(s): ETOH General Exam Limitations: no limitations General appearance: alert, in no apparent distress Head exam: Present: atraumatic, normocephalic Eye exam: Present: normal appearance, PERRL ENT exam: Present: mucous membranes dry Neck exam: Present: normal inspection. Absent: tenderness, meningismus Respiratory exam: Present: normal lung sounds bilaterally. Absent: respiratory distress, wheezes Cardiovascular Exam: Present: normal rhythm, tachycardia GI/Abdominal exam: Present: soft, tenderness. Absent: distended Extremities exam: Present: normal inspection, normal capillary refill Neurological exam: Present: alert, oriented X3 Psychiatric exam: Present: normal affect, normal mood Course Vital Signs 11/17/23 11/17/23 11/18/23 20:49 22:03 01:07 Temperature 97.8 F 98.6 F Pulse Rate 131 H 80 83 Respiratory 26 H 18 17 Rate Blood Pressure 127/74 124/92 125/90 O2 Sat by Pulse 100 100 97 Oximetry Medical Decision Making - Medical Decision Making Was pt. sent in by a medical professional or institution (, PA, WATER MECHANIC, urgent care, hospital, or group home...) When possible be specific @ -No Did you speak to anyone other than the patient for history (EMS, parent, family, police, friend...)? What history was obtained from this source @ -No Did you review nursing and triage notes (agree or disagree)? Why? @ -I reviewed and agree with nursing and triage notes Were old charts reviewed (outside hosp., previous admission, EMS record, old EKG, old radiological studies, urgent care reports/EKG's, group home records)? Report findings @ -No old charts were reviewed Differential Diagnosis (chest pain, altered mental status, abdominal pain women, abdominal pain men, vaginal bleeding, weakness, fever, dyspnea, syncope, headache, dizziness, GI bleed, back pain, seizure, CVA, palpatations, mental health, musculoskeletal)? @ -Differential Abdominal Pain Men: Appendicitis, cholecystitis, diverticulosis, ischemic bowel, pancreatitis, hepatitis, UTI, gastroenteritis, AAA, incarcerated hernia, bowel obstruction, constipation, inflammatory bowel, hepatitis, peptic ulcer disease, splenic infarction, perforated viscus, testicular torsion, this is not meant to be an all-inclusive list EKG interpreted by me (3pts min.). @ -[Sinus rhythm ventricular rate of 88, ND interval 127, QRS duration 104, QTc mildly prolonged at 465 X-rays interpreted by me (1pt min.). @ -None done CT interpreted by me (1pt min.). @ -CT abdomen pelvis with IV contrast negative for acute intra-abdominal process. U/S interpreted by me (1pt. min.). @ -None done What testing was considered but not performed or refused? (CT, X-rays, U/S, labs)? Why? @ -None What meds were considered but not given or refused? Why? @ -None Did you discuss the management of the patient with other professionals (professionals i.e. , PA, WATER MECHANIC, lab, RT, psych nurse, social media specialist, machine welder, teacher, records officer, telephonic case manager)? Give summary @EMH Was smoking cessation discussed for >3mins.? @ -No Was critical care preformed (if so, how long)? @ -No Were there social determinants of health that impacted care today? How? (Homelessness, low income, unemployed, alcoholism, drug addiction, transportation, low edu. Level, literacy, decrease access to med. care, [facility], rehab)? @ -No Was there de-escalation of care discussed even if they declined (Discuss DNR or withdrawal of care, Hospice)? DNR status @ -No What co-morbidities impacted this encounter? (DM, HTN, Smoking, COPD, CAD, Cancer, CVA, ARF, Chemo, Hep., AIDS, mental health diagnosis, sleep apnea, morbid obesity)? @Previous history of alcohol abuse, not currently drinking. Was patient admitted / discharged? Hospital course, mention meds given and route, prescriptions, significant lab abnormalities, going to OR and other pertinent info. @ -48-year-old male with approximately 2 weeks of nausea vomiting diarrhea and generalized abdominal pain. Patient is tachycardic upon arrival does appear significantly dehydrated. IV fluids initiated while workup is pending. Patient has a white blood cell count of 11.9 which is predominantly lymphocytes. Platelets are 453. He is mild electrolyte abnormality including hypokalemia and hypomagnesemia which are both replaced. He has a significant lactic acidosis of 9.5. At this time I do suspect this is secondary to volume loss and dehydration as it improves with hydration. Patient does have seizure history and has had been noncompliant with medications but does not report seizure activity. This is an alternative possibility for the elevated lactic. Additionally the patient does have history of liver disease and is currently on metformin these can also cause elevated lactic acid. I do not think the pt is septic. He has normal BP and HR. CT abdomen pelvis negative for acute process. He is not ketotic and has normal blood glucose. I suspect his acidosis is secondary to lactic acidosis alone. He will be admitted for continued IV fluids and symptomatic treatment. Undiagnosed new problem with uncertain prognosis? @ -No Drug Therapy requiring intensive monitoring for toxicity (Heparin, Nitro, Insulin, Cardizem)? @ -No Were any procedures done? @ -No Diagnosis/symptom? @Nausea vomiting, dehydration, lactic acidosis Acute, or Chronic, or Acute on Chronic? @ -Acute Uncomplicated (without systemic symptoms) or Complicated (systemic symptoms)? @ -Default Side effects of treatment? @ -No Exacerbation, Progression, or Severe Exacerbation? @ -No Poses a threat to life or bodily function? How? (Chest pain, [place], [place], pneumonia, PE, COPD, DKA, ARF, appy, cholecystitis, CVA, Diverticulitis, Homicidal, Suicidal, threat to staff... and all critical care pts) @Moderate risk - Lab Data Result diagrams: 11/17/23 21:22 11/17/23 21:22 Lab Results 11/17/23 11/17/23 11/17/23 Range/Units 21:22 21:22 21:22 WBC 11.9 H (3.8-10.6) k/uL RBC 4.86 (4.30-5.90) m/uL Hgb 16.1 (13.0-17.5) gm/dL Hct 45.9 (39.0-53.0) % MCV 94.5 (80.0-100.0) fL MCH 33.1 (25.0-35.0) pg MCHC 35.1 (31.0-37.0) g/dL RDW 12.3 (11.5-15.5) % Plt Count 453 H D (150-450) k/uL MPV 7.4 Neutrophils % (Manual) 20 % Lymphocytes % (Manual) 77 % Monocytes % (Manual) 3 % Neutrophils # (Manual) 2.38 (1.3-7.7) k/uL Lymphocytes # (Manual) 9.16 H (1.0-4.8) k/uL Monocytes # (Manual) 0.36 (0-1.0) k/uL Nucleated RBCs 0 (0-0) /100 WBC Manual Slide Review Performed RBC Morphology Normal PT 10.8 (10.0-12.5) sec INR 1.0 (<1.2) APTT 22.5 (22.0-30.0) sec VBG pH (7.31-7.41) VBG pCO2 (37-51) mmHg VBG HCO3 (24-28) mmol/L Sodium 141 (137-145) mmol/L Potassium 3.3 L (3.5-5.1) mmol/L Chloride 98 (98-107) mmol/L Carbon Dioxide 20 L (22-30) mmol/L Anion Gap 23 mmol/L BUN 17 (9-20) mg/dL Creatinine 0.67 (0.66-1.25) mg/dL Est GFR (CKD-EPI)AfAm >90 (>60 ml/min/1.73 sqM) Est GFR (CKD-EPI)NonAf >90 (>60 ml/min/1.73 sqM) Glucose 114 H (74-99) mg/dL Lactic Ac Sepsis Rflx Plasma Lactic Acid Kel (0.7-2.0) mmol/L Calcium 8.6 (8.4-10.2) mg/dL Magnesium 1.5 L (1.6-2.3) mg/dL Total Bilirubin 0.5 (0.2-1.3) mg/dL AST 65 H (17-59) U/L ALT 37 (4-49) U/L Alkaline Phosphatase 93 (38-126) U/L Total Protein 7.0 (6.3-8.2) g/dL Albumin 4.4 (3.5-5.0) g/dL Urine Color Urine Appearance (Clear) Urine pH (5.0-8.0) Ur Specific [place] (1.001-1.035) Urine Protein (Negative) Urine Glucose (UA) (Negative) Urine Ketones (Negative) Urine Blood (Negative) Urine Nitrite (Negative) Urine Bilirubin (Negative) Urine Urobilinogen (<2.0) mg/dL Ur Leukocyte Esterase (Negative) Urine Opiates Screen (NotDetected) Ur Oxycodone Screen (NotDetected) Urine Methadone Screen (NotDetected) Ur Barbiturates Screen (NotDetected) U Tricyclic Antidepress (NotDetected) Ur Phencyclidine Scrn (NotDetected) Ur Amphetamines Screen (NotDetected) U Methamphetamines Scrn (NotDetected) U Benzodiazepines Scrn (NotDetected) Urine Cocaine Screen (NotDetected) U Marijuana (THC) Screen (NotDetected) Influenza Type A (PCR) (Not Detectd) Influenza Type B (PCR) (Not Detectd) RSV (PCR) (Not Detectd) SARS-CoV-2 (PCR) (Not Detectd) 11/17/23 11/17/23 11/17/23 Range/Units 21:22 21:30 22:08 WBC (3.8-10.6) k/uL RBC (4.30-5.90) m/uL Hgb (13.0-17.5) gm/dL Hct (39.0-53.0) % MCV (80.0-100.0) fL MCH (25.0-35.0) pg MCHC (31.0-37.0) g/dL RDW (11.5-15.5) % Plt Count (150-450) k/uL MPV Neutrophils % (Manual) % Lymphocytes % (Manual) % Monocytes % (Manual) % Neutrophils # (Manual) (1.3-7.7) k/uL Lymphocytes # (Manual) (1.0-4.8) k/uL Monocytes # (Manual) (0-1.0) k/uL Nucleated RBCs (0-0) /100 WBC Manual Slide Review RBC Morphology PT (10.0-12.5) sec INR (<1.2) APTT (22.0-30.0) sec VBG pH 7.56 H (7.31-7.41) VBG pCO2 28 L (37-51) mmHg VBG HCO3 25 (24-28) mmol/L Sodium (137-145) mmol/L Potassium (3.5-5.1) mmol/L Chloride (98-107) mmol/L Carbon Dioxide (22-30) mmol/L Anion Gap mmol/L BUN (9-20) mg/dL Creatinine (0.66-1.25) mg/dL Est GFR (CKD-EPI)AfAm (>60 ml/min/1.73 sqM) Est GFR (CKD-EPI)NonAf (>60 ml/min/1.73 sqM) Glucose (74-99) mg/dL Lactic Ac Sepsis Rflx Plasma Lactic Acid Kel 9.5 H* (0.7-2.0) mmol/L Calcium (8.4-10.2) mg/dL Magnesium (1.6-2.3) mg/dL Total Bilirubin (0.2-1.3) mg/dL AST (17-59) U/L ALT (4-49) U/L Alkaline Phosphatase (38-126) U/L Total Protein (6.3-8.2) g/dL Albumin (3.5-5.0) g/dL Urine Color Urine Appearance (Clear) Urine pH (5.0-8.0) Ur Specific [place] (1.001-1.035) Urine Protein (Negative) Urine Glucose (UA) (Negative) Urine Ketones (Negative) Urine Blood (Negative) Urine Nitrite (Negative) Urine Bilirubin (Negative) Urine Urobilinogen (<2.0) mg/dL Ur Leukocyte Esterase (Negative) Urine Opiates Screen (NotDetected) Ur Oxycodone Screen (NotDetected) Urine Methadone Screen (NotDetected) Ur Barbiturates Screen (NotDetected) U Tricyclic Antidepress (NotDetected) Ur Phencyclidine Scrn (NotDetected) Ur Amphetamines Screen (NotDetected) U Methamphetamines Scrn (NotDetected) U Benzodiazepines Scrn (NotDetected) Urine Cocaine Screen (NotDetected) U Marijuana (THC) Screen (NotDetected) Influenza Type A (PCR) Not Detected (Not Detectd) Influenza Type B (PCR) Not Detected (Not Detectd) RSV (PCR) Not Detected (Not Detectd) SARS-CoV-2 (PCR) Not Detected (Not Detectd) 11/17/23 11/17/23 11/18/23 Range/Units 22:10 22:18 00:15 WBC (3.8-10.6) k/uL RBC (4.30-5.90) m/uL Hgb (13.0-17.5) gm/dL Hct (39.0-53.0) % MCV (80.0-100.0) fL MCH (25.0-35.0) pg MCHC (31.0-37.0) g/dL RDW (11.5-15.5) % Plt Count (150-450) k/uL MPV Neutrophils % (Manual) % Lymphocytes % (Manual) % Monocytes % (Manual) % Neutrophils # (Manual) (1.3-7.7) k/uL Lymphocytes # (Manual) (1.0-4.8) k/uL Monocytes # (Manual) (0-1.0) k/uL Nucleated RBCs (0-0) /100 WBC Manual Slide Review RBC Morphology PT (10.0-12.5) sec INR (<1.2) APTT (22.0-30.0) sec VBG pH (7.31-7.41) VBG pCO2 (37-51) mmHg VBG HCO3 (24-28) mmol/L Sodium (137-145) mmol/L Potassium (3.5-5.1) mmol/L Chloride (98-107) mmol/L Carbon Dioxide (22-30) mmol/L Anion Gap mmol/L BUN (9-20) mg/dL Creatinine (0.66-1.25) mg/dL Est GFR (CKD-EPI)AfAm (>60 ml/min/1.73 sqM) Est GFR (CKD-EPI)NonAf (>60 ml/min/1.73 sqM) Glucose (74-99) mg/dL Lactic Ac Sepsis Rflx Y Plasma Lactic Acid Kel 6.7 H* (0.7-2.0) mmol/L Calcium (8.4-10.2) mg/dL Magnesium (1.6-2.3) mg/dL Total Bilirubin (0.2-1.3) mg/dL AST (17-59) U/L ALT (4-49) U/L Alkaline Phosphatase (38-126) U/L Total Protein (6.3-8.2) g/dL Albumin (3.5-5.0) g/dL Urine Color Yellow Urine Appearance Clear (Clear) Urine pH 6.0 (5.0-8.0) Ur Specific [place] 1.018 (1.001-1.035) Urine Protein Trace H (Negative) Urine Glucose (UA) Negative (Negative) Urine Ketones Negative (Negative) Urine Blood Negative (Negative) Urine Nitrite Negative (Negative) Urine Bilirubin Negative (Negative) Urine Urobilinogen <2.0 (<2.0) mg/dL Ur Leukocyte Esterase Negative (Negative) Urine Opiates Screen Not Detected (NotDetected) Ur Oxycodone Screen Not Detected (NotDetected) Urine Methadone Screen Not Detected (NotDetected) Ur Barbiturates Screen Not Detected (NotDetected) U Tricyclic Antidepress Not Detected (NotDetected) Ur Phencyclidine Scrn Not Detected (NotDetected) Ur Amphetamines Screen Not Detected (NotDetected) U Methamphetamines Scrn Not Detected (NotDetected) U Benzodiazepines Scrn Not Detected (NotDetected) Urine Cocaine Screen Not Detected (NotDetected) U Marijuana (THC) Screen Not Detected (NotDetected) Influenza Type A (PCR) (Not Detectd) Influenza Type B (PCR) (Not Detectd) RSV (PCR) (Not Detectd) SARS-CoV-2 (PCR) (Not Detectd) Disposition Clinical Impression: Abdominal pain, Vomiting, Nausea, Lactic acidosis, Dehydration Disposition: ADMITTED IP TO THIS HOSP Condition: Stable Is patient prescribed a controlled substance at d/c from ED?: No Time of Disposition: 00:41
[2023-11-17 21:51] LABS: ALT 37 U/L (4-49); AST 65 U/L (17-59); African American GFR (CKD) >90 (>60 ml/min/1.73 sqM); Albumin 4.4 g/dL (3.5-5.0); Alkaline Phosphatase 93 U/L (38-126); Anion Gap 23 mmol/L; Blood Urea Nitrogen 17 mg/dL (9-20); Calcium 8.6 mg/dL (8.4-10.2); Carbon Dioxide 20 mmol/L (22-30); Chloride 98 mmol/L (98-107); Glucose 114 mg/dL (74-99); Magnesium 1.5 mg/dL (1.6-2.3); Non-African American GFR(CKD) >90 (>60 ml/min/1.73 sqM); Potassium 3.3 mmol/L (3.5-5.1); Sodium 141 mmol/L (137-145); Total Bilirubin 0.5 mg/dL (0.2-1.3)
[2023-11-17 21:56] LABS: HCT 45.9 % (39.0-53.0); HGB 16.1 gm/dL (13.0-17.5); MCH 33.1 pg (25.0-35.0); MCHC 35.1 g/dL (31.0-37.0); MCV 94.5 fL (80.0-100.0); Mean Platelet Volume 7.4; RBC 4.86 m/uL (4.30-5.90); RDW 12.3 % (11.5-15.5); WBC 11.9 k/uL (3.8-10.6)
[2023-11-17 21:59] LABS: Platelet Count 453 k/uL (150-450)
[2023-11-17] MEDS: SODIUM CHLORIDE 0.9% 1,000 ML IV ONE ×2 (21:59→22:32)
[2023-11-17] MEDS: ONDANSETRON 4 MG/2 ML VIAL IVP STA (22:01)
[2023-11-17 22:03] LABS: Partial Thromboplastin Time 22.5 sec (22.0-30.0); Prothrombin Time 10.8 sec (10.0-12.5)
[2023-11-17 22:28] LABS: Appearance,Urine Clear (Clear); Bilirubin,Urine Negative (Negative); Blood,Urine Negative (Negative); Color,Urine Yellow; Glucose,Urine (UA) Negative (Negative); Ketones,Urine Negative (Negative); Leukocyte Esterase,Urine Negative (Negative); Nitrite,Urine Negative (Negative); Protein,Urine Trace (Negative); Specific Gravity,Urine 1.018 (1.001-1.035); Urobilinogen,Urine <2.0 mg/dL (<2.0)
[2023-11-17 22:28] LABS: Lymphocytes # (M) 9.16 k/uL (1.0-4.8); Monocytes # (M) 0.36 k/uL (0-1.0); Neutrophils # (M) 2.38 k/uL (1.3-7.7); Neutrophils % (M) 20 %; Nucleated Red Blood Cells 0 /100 WBC (0-0); Total Cells Counted 100
[2023-11-17 22:29] LABS: RBC Morphology Normal
[2023-11-17] MEDS: HYDROmorphone 0.5 MG/0.5 ML SYRINGE IVP STA ×2 (22:31→23:20)
[2023-11-17 22:39] LABS: Amphetamine Screen,Urine Not Detected (NotDetected); Barbiturate Screen,Urine Not Detected (NotDetected); Benzodiazepines Screen,Urine Not Detected (NotDetected); Cocaine Screen,Urine Not Detected (NotDetected); Methadone Screen, Urine Not Detected (NotDetected); Opiate Screen,Urine Not Detected (NotDetected); Oxycodone Screen, Urine Not Detected (NotDetected); Phencyclidine Screen,Urine Not Detected (NotDetected); Tricyclic Antidepressant,Urine Not Detected (NotDetected); Urn Cannabinoid Scrn Not Detected (NotDetected)
[2023-11-17] MEDS: MAGNESIUM SULFATE-D5W PMX 1 GM in DEXTROSE/WATER 1 100ML.BAG IVPB SCH (22:46)
[2023-11-17] MEDS: POTASSIUM CHLORIDE 10 MEQ in WATER FOR INJECTION 1 100ML.BAG IVPB SCH (23:22)
--- NOTE | 2023-11-17 23:58 | CT ---
EXAM: CT Abdomen and Pelvis With Intravenous Contrast CLINICAL HISTORY: ITS.REASON CT Reason: ab pain TECHNIQUE: Axial computed tomography images of the abdomen and pelvis with intravenous contrast. CTDI is 18.6 mGy and DLP is 936.4 mGy-cm. This CT exam was performed using one or more of the following dose reduction techniques: automated exposure control, adjustment of the mA and/or kV according to patient size, and/or use of iterative reconstruction technique. COMPARISON: No relevant prior studies available. FINDINGS: Lung bases: Unremarkable. No mass. No consolidation. ABDOMEN: Liver: Hepatic steatosis. Gallbladder and bile ducts: Cholecystectomy. No ductal dilation. Pancreas: Unremarkable. No mass. No ductal dilation. Spleen: Unremarkable. No splenomegaly. Adrenals: Unremarkable. No mass. Kidneys and ureters: Nonobstructing LEFT lower pole renal stone measures 3 mm. Nonobstructing RIGHT lower pole renal stone measures 4 mm. No hydronephrosis or delayed nephrogram. Stomach and bowel: Diverticulosis, without acute diverticulitis. No bowel obstruction. No free air. PELVIS: Appendix: Normal appendix. Bladder: Unremarkable. No mass. Reproductive: Unremarkable as visualized. ABDOMEN and PELVIS: Intraperitoneal space: See above. Bones/joints: No acute fracture. No dislocation. Soft tissues: Unremarkable. Vasculature: Unremarkable. No abdominal aortic aneurysm. Lymph nodes: Unremarkable. No enlarged lymph nodes. IMPRESSION: 1. Normal appendix. 2. Hepatic steatosis. 3. Cholecystectomy. 4. Nonobstructing LEFT lower pole renal stone measures 3 mm. Nonobstructing RIGHT lower pole renal stone measures 4 mm. 5. Diverticulosis, without acute diverticulitis. No bowel obstruction. No free air.
[2023-11-18] MEDS ORDERED: NALOXONE 0.4 MG/ML 1 ML VIAL IV PRN (00:26)
[2023-11-18] MEDS: SODIUM CHLORIDE 0.9% 1,000 ML IV SCH (01:00)
[2023-11-18] MEDS: HYDROmorphone 0.5 MG/0.5 ML SYRINGE IVP PRN (01:34)
[2023-11-18 03:27] LABS: Glucose,Whole Blood 101 mg/dL (70-110)
[2023-11-18] MEDS ORDERED: LORazepam 2 MG/ML INJ IV PRN (03:38)
[2023-11-18] MEDS: LORazepam 2 MG/ML INJ IV PRN ×2 (03:52→10:21)
[2023-11-18] MEDS: THIAMINE 100 MG/ML 2 ML VIAL IM ONE (03:56)
[2023-11-18] MEDS ORDERED: DEXTROSE 50% SYRINGE 50 ML IVP PRN ×2 (07:04)
[2023-11-18] MEDS ORDERED: DICYCLOMINE 20 MG TAB PO PRN (08:16)
--- NOTE | 2023-11-18 08:21 | P.HPIM ---
History of Present Illness This is a pleasant 48 years old male with past medical history of alcohol use disorder. Presents because of recurrent nausea vomiting and diarrhea for 3 to 4 days duration Yesterday he had fever at home, he states he checked it and it was 102. However patient has been afebrile since admission He states he was throwing up about 10 times or more the day prior to hospitalization, there was no blood, little brown improved significantly with Zofran but still have mild nausea, he still looks with malaise and uncomfortable Diarrhea also about the same about 10 times or more the day before her hospitalization, looks light brown no blood Patient with low appetite He complains from aches all over his body but denies specific pain. He states he has chronic neck and left foot pain from previous foot surgery which is slightly worse. But no chest abdominal pain. Mild headache no dizziness weakness or numbness. Urinary complaints No shortness of breath or cough. He states he smokes 1 to 2 cigarettes/day and he quit 1 week prior. Patient counseled to quit. He states he drinks alcohol but he could not specify how much he states he drinks liquor. No substance abuse as per patient Labs reviewed, no fever. Patient labs reviewed he has mild leukocytosis of 11.4, platelet count elevated 453. Rest of labs were unremarkable including BMP liver enzymes troponin, INR Urine analysis is negative for infection. Urine drug screen is negative Influenza A and type B, RSV, SARS (coronavirus) are and detected Venous pH is slightly alkalotic 7.56, pCO2 is low at 28, bicarb 25. Elevated lactic acid 9.3 on admission improved to 3.8. He has low magnesium 1.5 and potassium 3.3 and protocol was initiated EKG showing sinus rhythm at [address]-T changes CT of the abdomen and pelvis with contrast showing cholecystectomy Bilateral nonobstructive left kidney stones 3 mm and right kidney stones 4 mm. No evidence of hydronephrosis. Patient has diverticulosis with no diverticulitis. Patient started on CIWA protocol and thiamine and given normal saline boluses and continuous infusion at 130 mL/h Review of Systems Review of systems CONSTITUTIONAL: No fever, no malaise, no fatigue. HEENT: No recent visual problems or hearing problems. Denied any sore throat. CARDIOVASCULAR: No orthopnea, PND, no palpitations, no syncope. PULMONARY: No shortness of breath, no cough, no hemoptysis. GASTROINTESTINAL: No diarrhea, no nausea, no vomiting, no abdominal pain. Normoactive bowel sounds. NEUROLOGICAL: No headaches, no weakness, no numbness. HEMATOLOGICAL: Denies any bleeding or petechiae. GENITOURINARY: Denies any burning micturition, frequency, or urgency. MUSCULOSKELETAL/RHEUMATOLOGICAL: Denies any joint pain, swelling, or any muscle pain. ENDOCRINE: Denies any polyuria or polydipsia. 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 History of Any Multi-Drug Resistant Organisms: None Reported Past Surgical History: Back Surgery, Cholecystectomy, Ear Surgery Additional Past Surgical History / Comment(s): EGD, colonoscopy, bilateral myringotomies/tubes., cervical fusion (october 2020), foot surgery (sep 2020) Past Anesthesia/Blood Transfusion Reactions: No Reported Reaction Past Psychological History: Anxiety, Depression, PTSD Additional Psychological History / Comment(s): . Smoking Status: Current every day smoker Past Alcohol Use History: Abuse, Daily, Heavy Additional Past Alcohol Use History / Comment(s): Smokes 1/2 ppd., started smoking 1992.,. hx of heavy alcohol use, quit 2019 Past Drug Use History: Cocaine, Marijuana Additional Drug Use History / Comment(s): Past use of cocaine, marijuana and ecstasy but none for years - Past Family History Mother Family Medical History: Thyroid Disorder Father Additional Family Medical History / Comment(s): ETOH Medications and Allergies Home Medications Medication Instructions Recorded Confirmed Type Folic Acid 1 mg PO DAILY 05/18/17 11/18/23 History Pantoprazole [Protonix] 40 mg PO DAILY 09/13/19 11/18/23 History hydrOXYzine HCL 25 mg PO Q6H PRN 10/07/21 11/18/23 History Ibuprofen [Motrin] 400 mg PO Q6HR PRN #20 tab 11/02/23 11/18/23 Rx Cetirizine HCl [Zyrtec] 10 mg PO DAILY 11/18/23 11/18/23 History Dicyclomine [Bentyl] 20 mg PO QID PRN 11/18/23 11/18/23 History Famotidine [Pepcid] 20 - 40 mg PO DAILY PRN 11/18/23 11/18/23 History Meloxicam [Mobic] 15 mg PO DAILY 11/18/23 11/18/23 History Omeprazole [PriLOSEC] 40 mg PO DAILY 11/18/23 11/18/23 History Ondansetron [Zofran] 8 mg PO Q8H PRN 11/18/23 11/18/23 History Pyridoxine HCl (Vitamin B6) 100 mg PO DAILY 11/18/23 11/18/23 History [Vitamin B-6] Sertraline [Zoloft] 25 mg PO DAILY 11/18/23 11/18/23 History traZODone HCL [Desyrel] 50 mg PO HS 11/18/23 11/18/23 History Allergies Allergy/AdvReac Type Severity Reaction Status Date / Time bupropion [From Wellbutrin] Allergy Unknown Verified 11/18/23 07:13 Penicillins Allergy Rash/Hives Verified 11/18/23 07:13 Physical Exam Vitals: Vital Signs Temp Pulse Pulse Resp BP BP Pulse Ox 11/18/23 07:35 95 16 11/18/23 07:31 98.3 F 95 16 153/93 11/18/23 03:15 90 18 11/18/23 03:14 98.1 F 90 18 144/99 100 11/18/23 02:20 80 16 131/92 96 11/18/23 01:07 98.6 F 83 17 125/90 97 11/17/23 22:03 80 18 124/92 100 11/17/23 20:49 97.8 F 131 H 26 H 127/74 100 Intake and Output 11/17/23 11/18/23 11/18/23 22:59 06:59 14:59 Intake Total 520 Output Total 100 Balance 420 Intake: Intake, IV Titration 520 Amount Sodium Chloride 0.9% 1, 520 000 ml @ 130 mls/hr IV . Q7H42M [facility] Rx#:[id number] Output: Urine 100 Other: Voiding Method Urinal Urinal # Voids 1 Weight 74.843 kg 74.843 kg -GENERAL: The patient is alert and oriented x3, not in any acute distress. Well developed, well nourished. General malaise and weak HEENT: Pupils are round and equally reacting to light. EOMI. No scleral icterus. No conjunctival pallor. Normocephalic, atraumatic. No pharyngeal erythema. No thyromegaly. CARDIOVASCULAR: S1 and S2 present. No murmurs, rubs, or gallops. PULMONARY: Chest is clear to auscultation, no wheezing , no crackles. ABDOMEN: Soft, nontender, nondistended, normoactive bowel sounds. No palpable organomegaly. MUSCULOSKELETAL: No joint swelling or deformity. EXTREMITIES: No cyanosis, clubbing, or pedal edema. NEUROLOGICAL: Gross neurological examination did not reveal any focal deficits. SKIN: No rashes. no petechiae. Results CBC & Chem 7: 11/17/23 21:22 11/17/23 21:22 Labs: Abnormal Lab Results - Last 24 Hours (Table) 11/17/23 11/17/23 11/17/23 Range/Units 21:22 21:22 21:22 WBC 11.9 H (3.8-10.6) k/uL Plt Count 453 H D (150-450) k/uL Lymphocytes # (Manual) 9.16 H (1.0-4.8) k/uL VBG pH (7.31-7.41) VBG pCO2 (37-51) mmHg Potassium 3.3 L (3.5-5.1) mmol/L Carbon Dioxide 20 L (22-30) mmol/L Glucose 114 H (74-99) mg/dL Plasma Lactic Acid Kel 9.5 H* (0.7-2.0) mmol/L Magnesium 1.5 L (1.6-2.3) mg/dL AST 65 H (17-59) U/L Urine Protein (Negative) 11/17/23 11/17/23 11/18/23 Range/Units 21:30 22:18 00:15 WBC (3.8-10.6) k/uL Plt Count (150-450) k/uL Lymphocytes # (Manual) (1.0-4.8) k/uL VBG pH 7.56 H (7.31-7.41) VBG pCO2 28 L (37-51) mmHg Potassium (3.5-5.1) mmol/L Carbon Dioxide (22-30) mmol/L Glucose (74-99) mg/dL Plasma Lactic Acid Kel 6.7 H* (0.7-2.0) mmol/L Magnesium (1.6-2.3) mg/dL AST (17-59) U/L Urine Protein Trace H (Negative) 11/18/23 Range/Units 05:47 WBC (3.8-10.6) k/uL Plt Count (150-450) k/uL Lymphocytes # (Manual) (1.0-4.8) k/uL VBG pH (7.31-7.41) VBG pCO2 (37-51) mmHg Potassium (3.5-5.1) mmol/L Carbon Dioxide (22-30) mmol/L Glucose (74-99) mg/dL Plasma Lactic Acid Kel 3.8 H* (0.7-2.0) mmol/L Magnesium (1.6-2.3) mg/dL AST (17-59) U/L Urine Protein (Negative) Thrombosis Risk Factor Assmnt - Choose All That Apply Any of the Below Risk Factors Present?: Yes Each Factor Represents 1 point: Age 41-60 years, Sepsis (< 1month) Other Risk Factors: No Other congenital or acquired thrombophilia - If yes, enter type in comment: No Thrombosis Risk Factor Assessment Total Risk Factor Score: 2 Thrombosis Risk Factor Assessment Level: Low Risk Assessment and Plan Assessment: Acute gastroenteritis, could be viral and alcoholic. Does not look bacterial with no fever or leukocytosis. Will keep monitoring off antibiotic Dehydration with elevated lactic acid, history of nonadherence to treatment Alcohol use disorder Nicotine dependence Type 2 diabetes mellitus Plan: Continue with normal saline Continue CIWA protocol and thiamine Check proCalcitonin. Will keep monitoring while off antibiotic and may consider if develop fever or worsening leukocytosis or worsening symptoms Pain management Labs and medication were reviewed.. Continue same treatment. Continue with symptomatic treatment. Resume home medication. Monitor labs and vitals. DVT and GI prophylaxis. Further recommendations as per clinical course of the patient DVT prophylaxis: Subcutaneous heparin GI Prophylaxis: Ppi Prognosis is guarded
[2023-11-18 09:48] LABS: Glucose,Whole Blood 153 mg/dL (70-110)
[2023-11-18] MEDS: INSULIN ASPART (NovoLOG) 100 UNIT/ML VIAL SQ SCH (09:48)
[2023-11-18] MEDS: IBUPROFEN 400 MG TAB PO PRN (10:08)
[2023-11-18] MEDS: SERTRALINE 25 MG TAB PO SCH (10:08)
[2023-11-18] MEDS: LORATADINE 10 MG TAB PO SCH (10:08)
[2023-11-18] MEDS: HEPARIN SODIUM,PORCINE 5,000 UNIT/ML 1 ML VIAL SQ SCH (10:11)
[2023-11-18] MEDS: PANTOPRAZOLE 40 MG/10 ML VIAL IV SCH (11:00)
[2023-11-18 11:32] LABS: Glucose,Whole Blood 120 mg/dL (70-110)
[2023-11-18 16:28] LABS: Glucose,Whole Blood 113 mg/dL (70-110)
[2023-11-18] MEDS: HYDROcodone/APAP 5-325MG 1 EACH TAB PO PRN (16:51)
[2023-11-18 20:09] LABS: Glucose,Whole Blood 107 mg/dL (70-110)
[2023-11-18] MEDS: traZODone HCL 50 MG TAB PO SCH (20:24)
[2023-11-18] MEDS: ONDANSETRON 4 MG/2 ML VIAL IVP PRN (20:56)
[2023-11-19 06:14] LABS: Glucose,Whole Blood 150 mg/dL (70-110)
[2023-11-19 07:51] LABS: African American GFR (CKD) >90 (>60 ml/min/1.73 sqM); Anion Gap 12 mmol/L; Blood Urea Nitrogen <2 mg/dL (9-20); Calcium 7.2 mg/dL (8.4-10.2); Carbon Dioxide 21 mmol/L (22-30); Chloride 100 mmol/L (98-107); Glucose 113 mg/dL (74-99); Non-African American GFR(CKD) >90 (>60 ml/min/1.73 sqM); Sodium 133 mmol/L (137-145)
[2023-11-19 08:06] LABS: Magnesium 1.1 mg/dL (1.6-2.3); Potassium 3.5 mmol/L (3.5-5.1)
[2023-11-19] MEDS: THIAMINE 100 MG TAB PO SCH (08:59)
[2023-11-19] MEDS: MAGNESIUM SULFATE-D5W PMX 1 GM in DEXTROSE/WATER 1 100ML.BAG IVPB SCH (11:02)
[2023-11-19 11:57] LABS: Glucose,Whole Blood 154 mg/dL (70-110)
[2023-11-19] MEDS: hydrOXYzine HCL 25 MG TAB PO PRN (12:53)
[2023-11-19 16:39] LABS: Glucose,Whole Blood 160 mg/dL (70-110)
--- NOTE | 2023-11-19 19:29 | P.PN ---
Subjective This is a pleasant 48 years old male with past medical history of alcohol use disorder. Presents because of recurrent nausea vomiting and diarrhea for 3 to 4 days duration Yesterday he had fever at home, he states he checked it and it was 102. However patient has been afebrile since admission He states he was throwing up about 10 times or more the day prior to hospitalization, there was no blood, little brown improved significantly with Zofran but still have mild nausea, he still looks with malaise and uncomfortable Diarrhea also about the same about 10 times or more the day before her hospitalization, looks light brown no blood Patient with low appetite He complains from aches all over his body but denies specific pain. He states he has chronic neck and left foot pain from previous foot surgery which is slightly worse. But no chest abdominal pain. Mild headache no dizziness weakness or numbness. Urinary complaints No shortness of breath or cough. He states he smokes 1 to 2 cigarettes/day and he quit 1 week prior. Patient counseled to quit. He states he drinks alcohol but he could not specify how much he states he drinks liquor. No substance abuse as per patient Labs reviewed, no fever. Patient labs reviewed he has mild leukocytosis of 11.4, platelet count elevated 453. Rest of labs were unremarkable including BMP liver enzymes troponin, INR Urine analysis is negative for infection. Urine drug screen is negative Influenza A and type B, RSV, SARS (coronavirus) are and detected Venous pH is slightly alkalotic 7.56, pCO2 is low at 28, bicarb 25. Elevated lactic acid 9.3 on admission improved to 3.8. He has low magnesium 1.5 and potassium 3.3 and protocol was initiated EKG showing sinus rhythm at [address]-T changes CT of the abdomen and pelvis with contrast showing cholecystectomy Bilateral nonobstructive left kidney stones 3 mm and right kidney stones 4 mm. No evidence of hydronephrosis. Patient has diverticulosis with no diverticulitis. Patient started on CIWA protocol and thiamine and given normal saline boluses and continuous infusion at 130 mL/h 11/19/2023 Patient today is awake alert, mildly anxious when I asked him, otherwise he is appropriate and answers questions and follows commands Abdominal pain is minimal or absent, he tolerates liquid diet and is going to be advanced to regular diet He states he has 1 semisolid bowel movement yesterday, normal bowel movement this morning. No blood in his bowel Is asking for muscle relaxant Low potassium and magnesium replaced Give Librium x 1 and continue with CIWA protocol. His CIWA score was about 8 and he was getting Ativan consistently this morning so we will going to keep him today Possible discharge in 24 to 48 hours if he keeps improving Objective - Vital Signs Vital signs: Vital Signs Temp 98.3 F 11/19/23 12:17 Pulse 93 11/19/23 12:17 Resp 16 11/19/23 12:17 BP 147/100 11/19/23 12:17 Pulse Ox 99 11/19/23 12:17 FiO2 Intake & Output 11/18/23 11/19/23 11/19/23 18:59 06:59 18:59 Intake Total 634 10 Output Total 375 2245 1100 Balance 259 -6115 -1100 Intake: IV 10 Invasive Line 1 10 Oral 634 Output: Urine 375 2245 1100 Other: Voiding Method Urinal Toilet Toilet Urinal Urinal # Voids 1 # Bowel Movements 1 - Exam GENERAL: The patient is alert and oriented x3, not in any acute distress. Well developed, well nourished. HEENT: Pupils are round and equally reacting to light. EOMI. No scleral icterus. No conjunctival pallor. Normocephalic, atraumatic. No pharyngeal erythema. No thyromegaly. CARDIOVASCULAR: S1 and S2 present. No murmurs, rubs, or gallops. PULMONARY: Chest is clear to auscultation, no wheezing , no crackles. ABDOMEN: Soft, nontender, nondistended, normoactive bowel sounds. No palpable organomegaly. MUSCULOSKELETAL: No joint swelling or deformity. EXTREMITIES: No cyanosis, clubbing, or pedal edema. NEUROLOGICAL: Gross neurological examination did not reveal any focal deficits. SKIN: No rashes. no petechiae. - Labs CBC & Chem 7: 11/17/23 21:22 11/19/23 06:55 Labs: Abnormal Lab Results - Last 24 Hours (Table) 11/18/23 11/19/23 11/19/23 Range/Units 16:27 06:13 06:55 Sodium 133 L (137-145) mmol/L Carbon Dioxide 21 L (22-30) mmol/L BUN <2 L (9-20) mg/dL Creatinine 0.48 L (0.66-1.25) mg/dL Glucose 113 H (74-99) mg/dL POC Glucose (mg/dL) 113 H 150 H (70-110) mg/dL Calcium 7.2 L (8.4-10.2) mg/dL Magnesium 1.1 L (1.6-2.3) mg/dL 11/19/23 Range/Units 11:55 Sodium (137-145) mmol/L Carbon Dioxide (22-30) mmol/L BUN (9-20) mg/dL Creatinine (0.66-1.25) mg/dL Glucose (74-99) mg/dL POC Glucose (mg/dL) 154 H (70-110) mg/dL Calcium (8.4-10.2) mg/dL Magnesium (1.6-2.3) mg/dL
[2023-11-19 20:01] LABS: Glucose,Whole Blood 93 mg/dL (70-110)
[2023-11-19] MEDS: MAGNESIUM OXIDE 400 MG TAB PO SCH (20:11)
[2023-11-19] MEDS: traZODone HCL 100 MG TAB PO SCH (20:11)
[2023-11-19] MEDS: chlordiazePOXIDE 25 MG CAP PO STA (20:11)
[2023-11-19] MEDS: POTASSIUM CHLORIDE ER 20 MEQ TAB.ER PO STA (20:11)
[2023-11-20 06:04] LABS: Glucose,Whole Blood 101 mg/dL (70-110)
[2023-11-20 08:46] VITALS: RESP 16
[2023-11-20 11:26] LABS: Glucose,Whole Blood 211 mg/dL (70-110)
[2023-11-20 16:36] LABS: Glucose,Whole Blood 128 mg/dL (70-110)
[2023-11-20 20:00] LABS: Glucose,Whole Blood 112 mg/dL (70-110)
--- NOTE | 2023-11-21 00:11 | P.PN ---
Subjective This is a pleasant 48 years old male with past medical history of alcohol use disorder. Presents because of recurrent nausea vomiting and diarrhea for 3 to 4 days duration Yesterday he had fever at home, he states he checked it and it was 102. However patient has been afebrile since admission He states he was throwing up about 10 times or more the day prior to hospitalization, there was no blood, little brown improved significantly with Zofran but still have mild nausea, he still looks with malaise and uncomfortable Diarrhea also about the same about 10 times or more the day before her hospitalization, looks light brown no blood Patient with low appetite He complains from aches all over his body but denies specific pain. He states he has chronic neck and left foot pain from previous foot surgery which is slightly worse. But no chest abdominal pain. Mild headache no dizziness weakness or numbness. Urinary complaints No shortness of breath or cough. He states he smokes 1 to 2 cigarettes/day and he quit 1 week prior. Patient counseled to quit. He states he drinks alcohol but he could not specify how much he states he drinks liquor. No substance abuse as per patient Labs reviewed, no fever. Patient labs reviewed he has mild leukocytosis of 11.4, platelet count elevated 453. Rest of labs were unremarkable including BMP liver enzymes troponin, INR Urine analysis is negative for infection. Urine drug screen is negative Influenza A and type B, RSV, SARS (coronavirus) are and detected Venous pH is slightly alkalotic 7.56, pCO2 is low at 28, bicarb 25. Elevated lactic acid 9.3 on admission improved to 3.8. He has low magnesium 1.5 and potassium 3.3 and protocol was initiated EKG showing sinus rhythm at [address]-T changes CT of the abdomen and pelvis with contrast showing cholecystectomy Bilateral nonobstructive left kidney stones 3 mm and right kidney stones 4 mm. No evidence of hydronephrosis. Patient has diverticulosis with no diverticulitis. Patient started on CIWA protocol and thiamine and given normal saline boluses and continuous infusion at 130 mL/h 11/19/2023 Patient today is awake alert, mildly anxious when I asked him, otherwise he is appropriate and answers questions and follows commands Abdominal pain is minimal or absent, he tolerates liquid diet and is going to be advanced to regular diet He states he has 1 semisolid bowel movement yesterday, normal bowel movement this morning. No blood in his bowel Is asking for muscle relaxant Low potassium and magnesium replaced Give Librium x 1 and continue with CIWA protocol. His CIWA score was about 8 and he was getting Ativan consistently this morning so we will going to keep him today Possible discharge in 24 to 48 hours if he keeps improving 11/20/2023 Patient awake alert Is alcohol withdrawal symptoms improving, his CIWA score was low today He tolerates diet well and we will advance his diet more awake if he can tolerate them he may consider for discharge in 24 to 48 hours Check labs for potassium magnesium and CBC tomorrow Patient states that he is motivated that he follow-up with AA meetings regularly. He has been before in [place] for 1 month and he does not want to go again for now as he thinks he can be managed as an outpatient. Objective - Vital Signs Vital signs: Vital Signs Temp 98.3 F 11/20/23 19:43 Pulse 93 11/20/23 19:43 Resp 16 11/20/23 19:43 BP 126/86 11/20/23 19:43 Pulse Ox 99 11/20/23 19:43 FiO2 Intake & Output 11/20/23 11/20/23 11/21/23 06:59 18:59 06:59 Intake Total 550 802 Output Total 700 1050 Balance -150 -248 Intake: IV 10 Invasive Line 1 10 Oral 540 802 Output: Gastric Drainage 0 Urine 700 1050 Stool 0 Urine/Stool Mix 0 Emesis 0 Oral Regurgitation 0 Other 0 Other: Voiding Method Toilet Toilet Urinal Urinal # Voids 2 0 # Bowel Movements 0 - Exam GENERAL: The patient is alert and oriented x3, not in any acute distress. Well developed, well nourished. HEENT: Pupils are round and equally reacting to light. EOMI. No scleral icterus. No conjunctival pallor. Normocephalic, atraumatic. No pharyngeal erythema. No thyromegaly. CARDIOVASCULAR: S1 and S2 present. No murmurs, rubs, or gallops. PULMONARY: Chest is clear to auscultation, no wheezing , no crackles. ABDOMEN: Soft, nontender, nondistended, normoactive bowel sounds. No palpable organomegaly. MUSCULOSKELETAL: No joint swelling or deformity. EXTREMITIES: No cyanosis, clubbing, or pedal edema. NEUROLOGICAL: Gross neurological examination did not reveal any focal deficits. SKIN: No rashes. no petechiae. - Labs CBC & Chem 7: 11/17/23 21:22 11/19/23 06:55 Labs: Abnormal Lab Results - Last 24 Hours (Table) 11/20/23 11/20/23 11/20/23 Range/Units 11:24 16:34 19:58 POC Glucose (mg/dL) 211 H 128 H 112 H (70-110) mg/dL Assessment and Plan Assessment: Acute gastroenteritis, could be viral and alcoholic. Does not look bacterial with no fever or leukocytosis. Will keep monitoring off antibiotic Dehydration with elevated lactic acid, history of nonadherence to treatment Alcohol use disorder Nicotine dependence Type 2 diabetes mellitus Plan: Continue with normal saline Continue CIWA protocol and thiamine Pain management Labs and medication were reviewed.. Continue same treatment. Continue with symptomatic treatment. Resume home medication. Monitor labs and vitals. DVT and GI prophylaxis. Further recommendations as per clinical course of the patient DVT prophylaxis: Subcutaneous heparin GI Prophylaxis: Ppi Possible discharge in 24 to 48 hours if he keeps improving
[2023-11-21 06:10] LABS: Glucose,Whole Blood 101 mg/dL (70-110)
[2023-11-21 10:23] LABS: Basophils % (A) 1 %; Eosinophils # (A) 0.1 k/uL (0-0.7); Eosinophils % (A) 2 %; HCT 37.8 % (39.0-53.0); Lymphocytes # (A) 1.5 k/uL (1.0-4.8); Lymphocytes % (A) 27 %; MCH 32.6 pg (25.0-35.0); MCHC 32.1 g/dL (31.0-37.0); Mean Platelet Volume 7.9; Monocytes # (A) 0.3 k/uL (0-1.0); Monocytes % (A) 6 %; Neutrophils # (A) 3.4 k/uL (1.3-7.7); Neutrophils % (A) 61 %; Platelet Count 252 k/uL (150-450); RBC 3.72 m/uL (4.30-5.90); RDW 12.1 % (11.5-15.5); WBC 5.6 k/uL (3.8-10.6)
[2023-11-21 10:38] LABS: African American GFR (CKD) >90 (>60 ml/min/1.73 sqM); Anion Gap 11 mmol/L; Blood Urea Nitrogen 6 mg/dL (9-20); Calcium 8.1 mg/dL (8.4-10.2); Carbon Dioxide 19 mmol/L (22-30); Chloride 106 mmol/L (98-107); Glucose 126 mg/dL (74-99); Magnesium 1.3 mg/dL (1.6-2.3); Non-African American GFR(CKD) >90 (>60 ml/min/1.73 sqM); Potassium 3.6 mmol/L (3.5-5.1); Sodium 136 mmol/L (137-145)
[2023-11-21 10:47] LABS: HGB 12.1 gm/dL (13.0-17.5)
[2023-11-21 10:48] LABS: MCV 101.4 fL (80.0-100.0)
[2023-11-21 11:39] LABS: Glucose,Whole Blood 116 mg/dL (70-110)
[2023-11-21 12:44] VITALS: BP 130/81; TEMP 98.4
[2023-11-21] MEDS: POTASSIUM CHLORIDE ER 20 MEQ TAB.ER PO STA (12:44)
[2023-11-21] MEDS: MAGNESIUM SULFATE-D5W PMX 1 GM in DEXTROSE/WATER 1 100ML.BAG IVPB SCH (12:45)
[2023-11-21 14:42] VITALS: PULSE 84
== END 2023-11-21 15:22 | disposition home or self-care (01) | DRG 392 ==
LOC: EC 20:47 → 3SCARD 11-18 00:28 → OBSVTOIN 11-18 08:03
PROVIDERS: ADMIT Internal Medicine; ATTEND Internal Medicine
DX: K52.9 Noninfective gastroenteritis and colitis, unspecified (principal); E87.3 Alkalosis; F10.10 Alcohol abuse, uncomplicated; R79.89 Other specified abnormal findings of blood chemistry; E86.0 Dehydration; E11.9 Type 2 diabetes mellitus without complications; E83.42 Hypomagnesemia; E87.6 Hypokalemia; F17.210 Nicotine dependence, cigarettes, uncomplicated; F43.10 Post-traumatic stress disorder, unspecified; F32.A Depression, unspecified; G40.909 Epilepsy, unspecified, not intractable, without status epilepticus; I10 Essential (primary) hypertension; Z79.1 Long term (current) use of non-steroidal anti-inflammatories (NSAID); Z79.899 Other long term (current) drug therapy; Z79.84 Long term (current) use of oral hypoglycemic drugs; Z86.16 Personal history of COVID-19; Z91.148 Patient's other noncompliance with medication regimen for other reason; Z88.0 Allergy status to penicillin; Z88.6 Allergy status to analgesic agent
CPT/HCPCS: 36415; 74177; 80048; 80053; 80306; 81003; 82803; 83036; 83605; 83735; 85025; 85610; 85730; 87636; 93005; 96361; 96365; 96366; 96368; 96375; 96376; 99285

== ENCOUNTER 2023-11-26 18:35 | Emergency (ER) | payer BC ==
[2023-11-26 18:58] VITALS: TEMP 98.5
--- NOTE | 2023-11-26 19:22 | ED ---
Nausea/Vomiting/Diarrhea HPI - General Chief complaint: Nausea/Vomiting/Diarrhea Stated complaint: Diarrhea Time Seen by Provider: 11/26/23 18:45 Source: patient, RN notes reviewed Mode of arrival: wheelchair Limitations: no limitations - History of Present Illness Initial comments: This is a 48-year-old male who presents emergency department chief complaint of fatigue and diarrhea. Patient states that he was discharged from [facility] on 11/21/23 after be admitting for dehydration and electrolyte abnormalities due to influenza diagnosis. He states that he has been feeling better since discharge, however states that symptoms returned today. States that he had roughly 10 episodes of watery diarrhea today, denies blood or mucus. Additionally states that he is experiencing full body aches and abdominal pain. He has a past surgical history of cholecystectomy with no complications. Denies recent antibiotic use. - Related Data Home Medications Medication Instructions Recorded Confirmed Folic Acid 1 mg PO DAILY 05/18/17 11/18/23 Pantoprazole [Protonix] 40 mg PO DAILY 09/13/19 11/18/23 hydrOXYzine HCL 25 mg PO Q6H PRN 10/07/21 11/18/23 Cetirizine HCl [Zyrtec] 10 mg PO DAILY 11/18/23 11/18/23 Dicyclomine [Bentyl] 20 mg PO QID PRN 11/18/23 11/18/23 Famotidine [Pepcid] 20 - 40 mg PO DAILY PRN 11/18/23 11/18/23 Omeprazole [PriLOSEC] 40 mg PO DAILY 11/18/23 11/18/23 Ondansetron [Zofran] 8 mg PO Q8H PRN 11/18/23 11/18/23 Pyridoxine HCl (Vitamin B6) 100 mg PO DAILY 11/18/23 11/18/23 [Vitamin B-6] Sertraline [Zoloft] 25 mg PO DAILY 11/18/23 11/18/23 traZODone HCL [Desyrel] 50 mg PO HS 11/18/23 11/18/23 Previous Rx's Medication Instructions Recorded Ibuprofen [Motrin] 400 mg PO Q6HR PRN #20 tab 11/02/23 Magnesium Oxide [Mag-Ox] 400 mg PO TID 5 Days #15 tab 11/21/23 Thiamine [Vitamin B-1] 100 mg PO DAILY #30 tab 11/21/23 Allergies Allergy/AdvReac Type Severity Reaction Status Date / Time bupropion [From Wellbutrin] Allergy Unknown Verified 11/26/23 18:38 Penicillins Allergy Rash/Hives Verified 11/26/23 18:38 Review of Systems ROS Statement: Those systems with pertinent positive or pertinent negative responses have been documented in the HPI. ROS Other: All systems not noted in ROS Statement are negative. Past Medical History Past Medical History: Hypertension, Liver Disease, Seizure Disorder Additional Past Medical History / Comment(s): pancreatitis, anemia, last seizure 2 yrs ago (2019), hepatitis A diagnosed in [facility], R shoulder torn rotator cuff., states pre-diabetic , states taking metformin for weight loss., states covid Aug 03-"slight pneumonia"- denies current symptoms or residual cough. History of Any Multi-Drug Resistant Organisms: None Reported Past Surgical History: Back Surgery, Cholecystectomy, Ear Surgery Additional Past Surgical History / Comment(s): EGD, colonoscopy, bilateral myringotomies/tubes., cervical fusion (october 2020), foot surgery (sep 2020) Past Anesthesia/Blood Transfusion Reactions: No Reported Reaction Past Psychological History: Anxiety, Depression, PTSD Smoking Status: Current every day smoker Past Alcohol Use History: Abuse, Daily, Heavy Past Drug Use History: Cocaine, Marijuana - Past Family History Mother Family Medical History: Thyroid Disorder Father Additional Family Medical History / Comment(s): ETOH General Exam Limitations: no limitations General appearance: alert, in no apparent distress Head exam: Present: atraumatic, normocephalic, normal inspection Eye exam: Present: normal appearance, PERRL, EOMI. Absent: scleral icterus, conjunctival injection, periorbital swelling ENT exam: Present: normal exam, mucous membranes moist Neck exam: Present: normal inspection. Absent: tenderness, meningismus, lymphadenopathy Respiratory exam: Present: normal lung sounds bilaterally. Absent: respiratory distress, wheezes, rales, rhonchi, stridor Cardiovascular Exam: Present: regular rate, normal rhythm, normal heart sounds. Absent: systolic murmur, diastolic murmur, rubs, gallop, clicks GI/Abdominal exam: Present: soft, tenderness (diffuse over all quadrants), normal bowel sounds. Absent: distended, guarding, rebound, rigid Extremities exam: Present: normal inspection, full ROM, normal capillary refill. Absent: tenderness, pedal edema, joint swelling, calf tenderness Back exam: Present: normal inspection Neurological exam: Present: alert, oriented X3, CN II-XII intact Psychiatric exam: Present: normal affect, normal mood Skin exam: Present: warm, dry, intact, normal color. Absent: rash Course Vital Signs 11/26/23 18:35 Temperature 98.5 F Pulse Rate 91 Respiratory 16 Rate Blood Pressure 103/72 O2 Sat by Pulse 99 Oximetry Medical Decision Making - Medical Decision Making Was pt. sent in by a medical professional or institution (, PA, MIG WELDER, urgent care, hospital, or prison...) When possible be specific @ -No Did you speak to anyone other than the patient for history (EMS, parent, family, police, friend...)? What history was obtained from this source @ -No Did you review nursing and triage notes (agree or disagree)? Why? @ -I reviewed and agree with nursing and triage notes Were old charts reviewed (outside hosp., previous admission, EMS record, old EKG, old radiological studies, urgent care reports/EKG's, prison records)? Report findings @ -No old charts were reviewed Differential Diagnosis (chest pain, altered mental status, abdominal pain women, abdominal pain men, vaginal bleeding, weakness, fever, dyspnea, syncope, headache, dizziness, GI bleed, back pain, seizure, CVA, palpatations, mental health, musculoskeletal)? @ -Differential Abdominal Pain Men: Appendicitis, cholecystitis, diverticulosis, ischemic bowel, pancreatitis, hepatitis, UTI, gastroenteritis, AAA, incarcerated hernia, bowel obstruction, constipation, inflammatory bowel, hepatitis, peptic ulcer disease, splenic infarction, perforated viscus, testicular torsion, this is not meant to be an all-inclusive list EKG interpreted by me (3pts min.). @ -None X-rays interpreted by me (1pt min.). @ -None done CT interpreted by me (1pt min.). @ -CT abdomen pelvis with contrast no acute abdominal pelvic process at this time, stable exam findings compared to imaging on 11/16 U/S interpreted by me (1pt. min.). @ -None done What testing was considered but not performed or refused? (CT, X-rays, U/S, labs)? Why? @ -None What meds were considered but not given or refused? Why? @ -None Did you discuss the management of the patient with other professionals (professionals i.e. , PA, MIG WELDER, lab, RT, psych nurse, oncology social worker, concrete pouring supervisor, teacher, customer service security officer, telephonic case manager)? Give summary @ -No Was smoking cessation discussed for >3mins.? @ -No Was critical care preformed (if so, how long)? @ -No Were there social determinants of health that impacted care today? How? (Homele ssness, low income, unemployed, alcoholism, drug addiction, transportation, low edu. Level, literacy, decrease access to med. care, senior living, rehab)? @ -No Was there de-escalation of care discussed even if they declined (Discuss DNR or withdrawal of care, Hospice)? DNR status @ -No What co-morbidities impacted this encounter? (DM, HTN, Smoking, COPD, CAD, Cancer, CVA, ARF, Chemo, Hep., AIDS, mental health diagnosis, sleep apnea, morbid obesity)? @ -None Was patient admitted / discharged? Hospital course, mention meds given and route, prescriptions, significant lab abnormalities, going to OR and other pertinent info. @ -48-year-old male with complaint of diarrhea, abdominal pain and generalized bodyaches. On physical exam patient was noted to have diffuse abdominal pain with palpation that is not localized to one quadrant more than the other. No rebound or rigidity noted. Abdomen soft and nontender. Patient started on IV fluids in addition to pain management due to episodes of diarrhea and clinical signs of dehydration including dry mouth and skin. Patient CBC unremarkable, CMP no acute electrolyte disturbances noted. AST, ALT, alk phos elevated. Patient's lactic acid elevated at 2.5. Patient's abdominal pain on examination, he is sent for CT abdomen pelvis to rule out acute pathology. Evaluation, patient states that his pain is still present after Dilaudid therefore secondary to dose ordered. Urinalysis unremarkable for signs of infection. CT findings unremarkable. Reevaluation, patient states that he feels better after fluids and pain medication. Little to no concern for sepsis at this time, since elevated lactate is likely secondary to GI intestinal losses. Nonelevated white blood cell count, patient is not tachycardic, and there are no electrolyte a bnormalities noted. Patient's vitals are stable for discharge. Discussed with Dr. Nogueira Undiagnosed new problem with uncertain prognosis? @ -No Drug Therapy requiring intensive monitoring for toxicity (Heparin, Nitro, Insulin, Cardizem)? @ -No Were any procedures done? @ -No Diagnosis/symptom? @ -diarrhea, abdominal pain, Acute, or Chronic, or Acute on Chronic? @ -acute Uncomplicated (without systemic symptoms) or Complicated (systemic symptoms)? @ -uncomplicated Side effects of treatment? @ -No Exacerbation, Progression, or Severe Exacerbation? @ -No Poses a threat to life or bodily function? How? (Chest pain, USA, DC, pneumonia, PE, COPD, DKA, ARF, appy, cholecystitis, CVA, Diverticulitis, Homicidal, Suicidal, threat to staff... and all critical care pts) @ -No - Lab Data Result diagrams: 11/26/23 19:35 11/26/23 19:35 Lab Results 11/26/23 11/26/23 11/26/23 Range/Units 19:35 19:35 19:35 WBC 6.2 (3.8-10.6) k/uL RBC 4.14 L (4.30-5.90) m/uL Hgb 13.6 (13.0-17.5) gm/dL Hct 41.0 (39.0-53.0) % MCV 99.1 (80.0-100.0) fL MCH 32.9 (25.0-35.0) pg MCHC 33.2 (31.0-37.0) g/dL RDW 12.0 (11.5-15.5) % Plt Count 287 (150-450) k/uL MPV 7.0 Neutrophils % (Manual) 25 % Lymphocytes % (Manual) 62 % Monocytes % (Manual) 11 % Eosinophils % (Manual) 2 % Neutrophils # (Manual) 1.55 (1.3-7.7) k/uL Lymphocytes # (Manual) 3.84 (1.0-4.8) k/uL Monocytes # (Manual) 0.68 (0-1.0) k/uL Eosinophils # (Manual) 0.12 (0-0.7) k/uL Nucleated RBCs 0 (0-0) /100 WBC Manual Slide Review Performed RBC Morphology Normal ABG Lactic Acid 2.5 H* (0.5-1.6) mmol/L Sodium 142 (137-145) mmol/L Potassium 4.2 (3.5-5.1) mmol/L Chloride 110 H (98-107) mmol/L Carbon Dioxide 20 L (22-30) mmol/L Anion Gap 12 mmol/L BUN 19 (9-20) mg/dL Creatinine 0.66 (0.66-1.25) mg/dL Est GFR (CKD-EPI)AfAm >90 (>60 ml/min/1.73 sqM) Est GFR (CKD-EPI)NonAf >90 (>60 ml/min/1.73 sqM) Glucose 100 H (74-99) mg/dL Lactic Ac Sepsis Rflx Calcium 8.4 (8.4-10.2) mg/dL Total Bilirubin 0.3 (0.2-1.3) mg/dL AST 126 H (17-59) U/L ALT 87 H (4-49) U/L Alkaline Phosphatase 188 H (38-126) U/L Total Protein 6.7 (6.3-8.2) g/dL Albumin 4.0 (3.5-5.0) g/dL Amylase 62 (30-110) U/L Lipase 204 (23-300) U/L Urine Color Urine Appearance (Clear) Urine pH (5.0-8.0) Ur Specific [place] (1.001-1.035) Urine Protein (Negative) Urine Glucose (UA) (Negative) Urine Ketones (Negative) Urine Blood (Negative) Urine Nitrite (Negative) Urine Bilirubin (Negative) Urine Urobilinogen (<2.0) mg/dL Ur Leukocyte Esterase (Negative) 11/26/23 11/26/23 Range/Units 20:10 21:10 WBC (3.8-10.6) k/uL RBC (4.30-5.90) m/uL Hgb (13.0-17.5) gm/dL Hct (39.0-53.0) % MCV (80.0-100.0) fL MCH (25.0-35.0) pg MCHC (31.0-37.0) g/dL RDW (11.5-15.5) % Plt Count (150-450) k/uL MPV Neutrophils % (Manual) % Lymphocytes % (Manual) % Monocytes % (Manual) % Eosinophils % (Manual) % Neutrophils # (Manual) (1.3-7.7) k/uL Lymphocytes # (Manual) (1.0-4.8) k/uL Monocytes # (Manual) (0-1.0) k/uL Eosinophils # (Manual) (0-0.7) k/uL Nucleated RBCs (0-0) /100 WBC Manual Slide Review RBC Morphology ABG Lactic Acid (0.5-1.6) mmol/L Sodium (137-145) mmol/L Potassium (3.5-5.1) mmol/L Chloride (98-107) mmol/L Carbon Dioxide (22-30) mmol/L Anion Gap mmol/L BUN (9-20) mg/dL Creatinine (0.66-1.25) mg/dL Est GFR (CKD-EPI)AfAm (>60 ml/min/1.73 sqM) Est GFR (CKD-EPI)NonAf (>60 ml/min/1.73 sqM) Glucose (74-99) mg/dL Lactic Ac Sepsis Rflx Y Calcium (8.4-10.2) mg/dL Total Bilirubin (0.2-1.3) mg/dL AST (17-59) U/L ALT (4-49) U/L Alkaline Phosphatase (38-126) U/L Total Protein (6.3-8.2) g/dL Albumin (3.5-5.0) g/dL Amylase (30-110) U/L Lipase (23-300) U/L Urine Color Colorless Urine Appearance Clear (Clear) Urine pH 7.0 (5.0-8.0) Ur Specific [place] 1.031 (1.001-1.035) Urine Protein Negative (Negative) Urine Glucose (UA) Negative (Negative) Urine Ketones Negative (Negative) Urine Blood Negative (Negative) Urine Nitrite Negative (Negative) Urine Bilirubin Negative (Negative) Urine Urobilinogen <2.0 (<2.0) mg/dL Ur Leukocyte Esterase Negative (Negative) Disposition Clinical Impression: Diarrhea, Lactic acid increased Narrative: Please return to the Emergency Department if symptoms worsen or any other concerns. Follow-up with your primary care provider within the next 1 to 3 days for further evaluation. Disposition: HOME SELF-CARE Condition: Good Instructions (If sedation given, give patient instructions): Acute Diarrhea (ED) Is patient prescribed a controlled substance at d/c from ED?: No Referrals: Nonstaff,Physician [Primary Care Provider] - 1-2 days Time of Disposition: 23:24
[2023-11-26] MEDS: SODIUM CHLORIDE 0.9% 1,000 ML IV STA (19:45)
[2023-11-26 19:46] LABS: HGB 13.6 gm/dL (13.0-17.5); MCH 32.9 pg (25.0-35.0); MCHC 33.2 g/dL (31.0-37.0); MCV 99.1 fL (80.0-100.0); Platelet Count 287 k/uL (150-450); RBC 4.14 m/uL (4.30-5.90); WBC 6.2 k/uL (3.8-10.6)
[2023-11-26] MEDS: HYDROmorphone 0.5 MG/0.5 ML SYRINGE IVP STA (19:46)
[2023-11-26 19:56] LABS: ALT 87 U/L (4-49); AST 126 U/L (17-59); African American GFR (CKD) >90 (>60 ml/min/1.73 sqM); Alkaline Phosphatase 188 U/L (38-126); Amylase 62 U/L (30-110); Anion Gap 12 mmol/L; Blood Urea Nitrogen 19 mg/dL (9-20); Calcium 8.4 mg/dL (8.4-10.2); Carbon Dioxide 20 mmol/L (22-30); Chloride 110 mmol/L (98-107); Glucose 100 mg/dL (74-99); Lipase 204 U/L (23-300); Non-African American GFR(CKD) >90 (>60 ml/min/1.73 sqM); Potassium 4.2 mmol/L (3.5-5.1); Sodium 142 mmol/L (137-145); Total Bilirubin 0.3 mg/dL (0.2-1.3); Total Protein 6.7 g/dL (6.3-8.2)
[2023-11-26 20:53] LABS: Eosinophils # (M) 0.12 k/uL (0-0.7); Lymphocytes # (M) 3.84 k/uL (1.0-4.8); Monocytes # (M) 0.68 k/uL (0-1.0); Neutrophils # (M) 1.55 k/uL (1.3-7.7); Neutrophils % (M) 25 %; Nucleated Red Blood Cells 0 /100 WBC (0-0); RBC Morphology Normal; Total Cells Counted 100
[2023-11-26] MEDS: HYDROmorphone 1 MG/ML 1 ML SYRINGE IVP STA (21:04)
[2023-11-26 21:29] LABS: Appearance,Urine Clear (Clear); Bilirubin,Urine Negative (Negative); Blood,Urine Negative (Negative); Color,Urine Colorless; Glucose,Urine (UA) Negative (Negative); Ketones,Urine Negative (Negative); Leukocyte Esterase,Urine Negative (Negative); Nitrite,Urine Negative (Negative); Protein,Urine Negative (Negative); Specific Gravity,Urine 1.031 (1.001-1.035); Urobilinogen,Urine <2.0 mg/dL (<2.0)
--- NOTE | 2023-11-26 23:08 | CT ---
EXAMINATION TYPE: CT abdomen pelvis w con CT DLP: 965.5 mGycm, Automated exposure control for dose reduction was used. DATE OF EXAM: 11/26/2023 8:40 PM COMPARISON: CT 11/17/2023 CLINICAL INDICATION:Male, 48 years old with history of abdominal pain; abd pain TECHNIQUE: Axial CT of the abdomen and pelvis. Sagittal and coronal reformats were created on a [employer] workstation. Contrast used:100 ml mL of Isovue 300 with IV Contrast Oral contrast used: without Oral Contrast FINDINGS: LOWER CHEST: Unremarkable ABDOMEN LIVER: Suspect mild steatosis. No focal lesion evident. GALLBLADDER AND BILE DUCTS: The gallbladder is surgically absent. Biliary tree does not appear pathol ogically dilated. PANCREAS: Unremarkable. SPLEEN: Unremarkable. Adjacent splenule. ADRENAL GLANDS: Unremarkable. KIDNEYS AND URETERS: Kidneys enhance symmetrically. No evidence of hydronephrosis. Ureters are unrema rkable. Nonobstructing 4 mm calculus in the right lower pole and nonobstructing 3 mm calculus in the left lower pole, stable. PELVIS BLADDER: Mildly distended. Slightly hyperdense appearance of the urinary contents may be related to s ome contrast. REPRODUCTIVE: Unchanged ABDOMEN & PELVIS STOMACH AND BOWEL: Stomach is nondistended. Slightly patulous appearance of the duodenal sweep, the m ore distal small bowel is nondistended. There is nonspecific mild scattered fluid throughout. Pattern is not obstructive. What seems to be the appendix appears stable without evidence of inflammatory c hange. Mild stool throughout the colon, several portions are nondistended and not well assessed. The re may be a few diverticula, without evidence to suggest diverticulitis. PERITONEUM/RETROPERITONEUM: No evidence of pneumoperitoneum or free fluid. VASCULATURE: Portal veins are enhancing. Splenic vein is patent. SMV is patent. LYMPH NODES: No enlarged nodes by CT size criteria. SOFT TISSUE/ABDOMINAL WALL: No acute abnormality. Tiny fat-containing umbilical hernia. MUSCULOSKELETAL: No acute osseous abnormalities. Mild degenerative changes of the visualized spine. IMPRESSION: * Overall stable exam findings compared to 11/17/2023. * No evidence of an acute abdominal pelvic abnormality.
[2023-11-26] MEDS: KETOROLAC 15 MG/ML 1 ML VIAL IVP STA (23:17)
[2023-11-27 00:28] VITALS: BP 146/88; PULSE 95; RESP 18
== END 2023-11-26 23:39 | disposition home or self-care (01) ==
LOC: EC 18:35
DX: R74.02 Elevation of levels of lactic acid dehydrogenase [LDH] (principal); F17.290 Nicotine dependence, other tobacco product, uncomplicated; F12.90 Cannabis use, unspecified, uncomplicated; F14.90 Cocaine use, unspecified, uncomplicated; Z88.0 Allergy status to penicillin; Z88.8 Allergy status to other drugs, medicaments and biological substances
CPT/HCPCS: 36415; 83605 ×2; 80053; 82150; 83690; 85025; 81003; 74177; 99284; 96374; 96375; 96376; 96361 ×3; J1170 ×2; J1885; Q9967

== ENCOUNTER 2023-11-29 19:27 | Inpatient (IN) | payer BC ==
--- NOTE | 2023-11-29 20:43 | ED ---
General Adult HPI - General Chief complaint: Nausea/Vomiting/Diarrhea Stated complaint: NVD Time Seen by Provider: 11/29/23 20:42 Source: patient Mode of arrival: ambulatory Limitations: no limitations - History of Present Illness Initial comments: 48-year-old male recently discharged from this facility on 11/21/2023 after influenza diagnosis presenting to the ED with complaints of continued nausea and vomiting. Also notes since discharge has had "all over body pain". While I was doing quick notes in triage, patient grabs my attention and reported he is starting to have chest pain as well. I signed up for patient and upon reevaluation, patient reports improvement of nausea after antiemetics. He at this time complains more of "allover body pain" and not specifically any chest pains or belly pains. Denies fever or chills. No other complaints at this time. - Related Data Home Medications Medication Instructions Recorded Confirmed Folic Acid 1 mg PO DAILY 05/18/17 11/18/23 Pantoprazole [Protonix] 40 mg PO DAILY 09/13/19 11/18/23 hydrOXYzine HCL 25 mg PO Q6H PRN 10/07/21 11/18/23 Cetirizine HCl [Zyrtec] 10 mg PO DAILY 11/18/23 11/18/23 Dicyclomine [Bentyl] 20 mg PO QID PRN 11/18/23 11/18/23 Famotidine [Pepcid] 20 - 40 mg PO DAILY PRN 11/18/23 11/18/23 Omeprazole [PriLOSEC] 40 mg PO DAILY 11/18/23 11/18/23 Ondansetron [Zofran] 8 mg PO Q8H PRN 11/18/23 11/18/23 Pyridoxine HCl (Vitamin B6) 100 mg PO DAILY 11/18/23 11/18/23 [Vitamin B-6] Sertraline [Zoloft] 25 mg PO DAILY 11/18/23 11/18/23 traZODone HCL [Desyrel] 50 mg PO HS 11/18/23 11/18/23 Previous Rx's Medication Instructions Recorded Ibuprofen [Motrin] 400 mg PO Q6HR PRN #20 tab 11/02/23 Magnesium Oxide [Mag-Ox] 400 mg PO TID 5 Days #15 tab 11/21/23 Thiamine [Vitamin B-1] 100 mg PO DAILY #30 tab 11/21/23 Allergies Allergy/AdvReac Type Severity Reaction Status Date / Time bupropion [From Wellbutrin] Allergy Unknown Verified 11/26/23 18:38 Penicillins Allergy Rash/Hives Verified 11/26/23 18:38 Review of Systems ROS Statement: Those systems with pertinent positive or pertinent negative responses have been documented in the HPI. ROS Other: All systems not noted in ROS Statement are negative. Past Medical History Past Medical History: Hypertension, Liver Disease, Seizure Disorder Additional Past Medical History / Comment(s): pancreatitis, anemia, last seizure 2 yrs ago (2019), hepatitis A diagnosed in [facility], R shoulder torn rotator cuff., states pre-diabetic , states taking metformin for weight loss., states covid Aug 03-"slight pneumonia"- denies current symptoms or residual cough. History of Any Multi-Drug Resistant Organisms: None Reported Past Surgical History: Back Surgery, Cholecystectomy, Ear Surgery Additional Past Surgical History / Comment(s): EGD, colonoscopy, bilateral myringotomies/tubes., cervical fusion (october 2020), foot surgery (sep 2020) Past Anesthesia/Blood Transfusion Reactions: No Reported Reaction Past Psychological History: Anxiety, Depression, PTSD Smoking Status: Current every day smoker Past Alcohol Use History: Abuse, Daily, Heavy Past Drug Use History: Cocaine, Marijuana - Past Family History Mother Family Medical History: Thyroid Disorder Father Additional Family Medical History / Comment(s): ETOH General Exam - General Exam Comments Initial Comments: Visual Physical Exam Vital signs reviewed Head: Normocephalic, atraumatic Eyes: PERRLA, EOMI ENT: Airway patent Chest: Nonlabored breathing Skin: No visual rash, normal skin tone Neuro: Alert and oriented 3 Musculoskeletal: No gross abnormalities Limitations: no limitations General appearance: alert, in no apparent distress Eye exam: Present: normal appearance Neck exam: Present: normal inspection Respiratory exam: Present: normal lung sounds bilaterally Cardiovascular Exam: Present: regular rate GI/Abdominal exam: Present: soft (Diffuse abdominal tenderness to palpation.) Neurological exam: Present: alert, oriented X3 Skin exam: Present: warm, dry Course Vital Signs 11/29/23 19:46 Temperature 97.8 F Pulse Rate 61 Respiratory 18 Rate Blood Pressure 130/87 O2 Sat by Pulse 98 Oximetry Medical Decision Making - Medical Decision Making Quicknote portion performed. Signed Andrew Caldwell PA-C Was pt. sent in by a medical professional or institution ([facility], [facility], urgent care, hospital, or fdc...) When possible be specific @ -No Did you speak to anyone other than the patient for history (EMS, parent, family, police, friend...)? What history was obtained from this source @ -No Did you review nursing and triage notes (agree or disagree)? Why? @ -I reviewed and agree with nursing and triage notes Were old charts reviewed (outside hosp., previous admission, EMS record, old EKG, old radiological studies, urgent care reports/EKG's, fdc records)? Report findings @ -Reviewed prior chart showing admission for the same on 11/21/2023. Differential Diagnosis (chest pain, altered mental status, abdominal pain women, abdominal pain men, vaginal bleeding, weakness, fever, dyspnea, syncope, headache, dizziness, GI bleed, back pain, seizure, CVA, palpatations, mental health, musculoskeletal)? @ -Differential Abdominal Pain Men: Appendicitis, cholecystitis, diverticulosis, ischemic bowel, pancreatitis, hepatitis, UTI, gastroenteritis, AAA, incarcerated hernia, bowel obstruction, constipation, inflammatory bowel, hepatitis, peptic ulcer disease, splenic infarction, perforated viscus, testicular torsion, this is not meant to be an all-inclusive list EKG interpreted by me (3pts min.). @ -EKG interpreted me showing sinus tachycardia at [address]-T wave findings. ME 117, QRS 94, QT/QTc 340/413. X-rays interpreted by me (1pt min.). @ -Chest x-ray inter by me showing no evidence of acute finding. CT interpreted by me (1pt min.). @ -CT abdomen pelvis interpreted me showing subtle peripancreatic fat stranding noted surrounding the tail of the pancreas which is new from prior. No ductal dilation or pseudocyst. U/S interpreted by me (1pt. min.). @ -None done What testing was considered but not performed or refused? (CT, X-rays, U/S, labs)? Why? @ -None What meds were considered but not given or refused? Why? @ -None Did you discuss the management of the patient with other professionals (professionals i.e. , PA, PEOPLE [employer], lab, RT, psych nurse, social media analyst, highway engineer, teacher, surveillance sensor officer, high risk case manager)? Give summary @ -Case discussed with Dr. Farrell, who accepts admission Was smoking cessation discussed for >3mins.? @ -No Was critical care preformed (if so, how long)? @ -No Were there social determinants of health that impacted care today? How? (Homelessness, low income, unemployed, alcoholism, drug addiction, transportation, low edu. Level, literacy, decrease access to med. care, shelter, rehab)? @ -No Was there de-escalation of care discussed even if they declined (Discuss DNR or withdrawal of care, Hospice)? DNR status @ -No What co-morbidities impacted this encounter? (DM, HTN, Smoking, COPD, CAD, Cancer, CVA, ARF, Chemo, Hep., AIDS, mental health diagnosis, sleep apnea, morbid obesity)? @ -None Was patient admitted / discharged? Hospital course, mention meds given and route, prescriptions, significant lab abnormalities, going to OR and other pertinent info. @ -Admission 48-year-old male presenting to the ED with complaints of intractable nausea, vomiting. Patient had recent admission and discharged from this facility on 11/21/2023 secondary to nausea vomiting with influenza A. Reports since discharge has had intractable nausea vomiting and generalized allover body pain. While in triage I was obtaining quick notes and patient shouted out that he was having chest pains therefore EKG and additional cardiac workup was obtained. La boratory studies reviewed. CBC unremarkable. Chemistry panel does show elevated LFTs with AST at 214, ALT at 93, alk phos 310, lipase 709. Lactic acid 7.6. Repeat pending. Troponin undetectable patient given 3 L fluid bolus and also empirically treated with Zosyn. Blood cultures were obtained. CT abdomen pelvis does reveal signs of pancreatitis as well. Patient will be admitted secondary to the above. Undiagnosed new problem with uncertain prognosis? @ -No Drug Therapy requiring intensive monitoring for toxicity (Heparin, Nitro, Insulin, Cardizem)? @ -No Were any procedures done? @ -No Diagnosis/symptom? @ -Intractable nausea vomiting, lactic acidosis, pancreatitis Acute, or Chronic, or Acute on Chronic? @ -Acute Uncomplicated (without systemic symptoms) or Complicated (systemic symptoms)? @ -Complicated Side effects of treatment? @ -No Exacerbation, Progression, or Severe Exacerbation? @ -No Poses a threat to life or bodily function? How? (Chest pain, [place], [place], pneumonia, PE, COPD, DKA, ARF, appy, cholecystitis, CVA, Diverticulitis, Homicidal, Suicidal, threat to staff... and all critical care pts) @ -Possibly however at this time unlikely - Lab Data Result diagrams: 11/29/23 21:50 11/29/23 21:50 Lab Results 11/29/23 11/29/23 11/29/23 Range/Units 21:50 21:50 21:50 WBC 10.5 (3.8-10.6) k/uL RBC 5.09 (4.30-5.90) m/uL Hgb 16.4 (13.0-17.5) gm/dL Hct 50.3 (39.0-53.0) % MCV 98.9 (80.0-100.0) fL MCH 32.2 (25.0-35.0) pg MCHC 32.6 (31.0-37.0) g/dL RDW 12.1 (11.5-15.5) % Plt Count 347 (150-450) k/uL MPV 7.4 Neutrophils % 68 % Lymphocytes % 28 % Monocytes % 2 % Eosinophils % 0 % Basophils % 1 % Neutrophils # 7.2 (1.3-7.7) k/uL Lymphocytes # 2.9 (1.0-4.8) k/uL Monocytes # 0.2 (0-1.0) k/uL Eosinophils # 0.0 (0-0.7) k/uL Basophils # 0.1 (0-0.2) k/uL PT 9.8 L (10.0-12.5) sec INR 0.9 (<1.2) APTT 22.7 (22.0-30.0) sec Sodium 143 (137-145) mmol/L Potassium 4.0 (3.5-5.1) mmol/L Chloride 105 (98-107) mmol/L Carbon Dioxide 11 L (22-30) mmol/L Anion Gap 27 mmol/L BUN 12 (9-20) mg/dL Creatinine 0.70 (0.66-1.25) mg/dL Est GFR (CKD-EPI)AfAm >90 (>60 ml/min/1.73 sqM) Est GFR (CKD-EPI)NonAf >90 (>60 ml/min/1.73 sqM) Glucose 96 (74-99) mg/dL Lactic Ac Sepsis Rflx Plasma Lactic Acid Kel (0.7-2.0) mmol/L Calcium 9.2 (8.4-10.2) mg/dL Magnesium 1.4 L (1.6-2.3) mg/dL Total Bilirubin 0.8 (0.2-1.3) mg/dL AST 214 H (17-59) U/L ALT 93 H (4-49) U/L Alkaline Phosphatase 310 H (38-126) U/L Troponin I (0.000-0.034) ng/mL Total Protein 8.3 H (6.3-8.2) g/dL Albumin 5.3 H (3.5-5.0) g/dL Amylase 91 (30-110) U/L Lipase 709 H (23-300) U/L 11/29/23 11/29/23 11/29/23 Range/Units 21:50 21:50 22:34 WBC (3.8-10.6) k/uL RBC (4.30-5.90) m/uL Hgb (13.0-17.5) gm/dL Hct (39.0-53.0) % MCV (80.0-100.0) fL MCH (25.0-35.0) pg MCHC (31.0-37.0) g/dL RDW (11.5-15.5) % Plt Count (150-450) k/uL MPV Neutrophils % % Lymphocytes % % Monocytes % % Eosinophils % % Basophils % % Neutrophils # (1.3-7.7) k/uL Lymphocytes # (1.0-4.8) k/uL Monocytes # (0-1.0) k/uL Eosinophils # (0-0.7) k/uL Basophils # (0-0.2) k/uL PT (10.0-12.5) sec INR (<1.2) APTT (22.0-30.0) sec Sodium (137-145) mmol/L Potassium (3.5-5.1) mmol/L Chloride (98-107) mmol/L Carbon Dioxide (22-30) mmol/L Anion Gap mmol/L BUN (9-20) mg/dL Creatinine (0.66-1.25) mg/dL Est GFR (CKD-EPI)AfAm (>60 ml/min/1.73 sqM) Est GFR (CKD-EPI)NonAf (>60 ml/min/1.73 sqM) Glucose (74-99) mg/dL Lactic Ac Sepsis Rflx Y Plasma Lactic Acid Kel 7.6 H* (0.7-2.0) mmol/L Calcium (8.4-10.2) mg/dL Magnesium (1.6-2.3) mg/dL Total Bilirubin (0.2-1.3) mg/dL AST (17-59) U/L ALT (4-49) U/L Alkaline Phosphatase (38-126) U/L Troponin I <0.012 (0.000-0.034) ng/mL Total Protein (6.3-8.2) g/dL Albumin (3.5-5.0) g/dL Amylase (30-110) U/L Lipase (23-300) U/L Disposition Clinical Impression: Nausea and vomiting Disposition: ADMITTED IP TO THIS HOSP Condition: Good Referrals: Nonstaff,Physician [Primary Care Provider] - 1-2 days Time of Disposition: 00:00
--- NOTE | 2023-11-29 21:18 | XR ---
EXAMINATION TYPE: XR chest 2V DATE OF EXAM: 11/29/2023 COMPARISON: 11/10/2023 HISTORY: Chest pain TECHNIQUE: Frontal and lateral views of the chest are obtained. FINDINGS: There is no focal air space opacity, pleural effusion, or pneumothorax seen. The cardiac silhouette size is within normal limits. The osseous structures are intact. IMPRESSION: No acute cardiopulmonary process.
[2023-11-29 22:09] LABS: Basophils # (A) 0.1 k/uL (0-0.2); Basophils % (A) 1 %; Eosinophils % (A) 0 %; HCT 50.3 % (39.0-53.0); HGB 16.4 gm/dL (13.0-17.5); Lymphocytes # (A) 2.9 k/uL (1.0-4.8); Lymphocytes % (A) 28 %; MCH 32.2 pg (25.0-35.0); MCHC 32.6 g/dL (31.0-37.0); MCV 98.9 fL (80.0-100.0); Mean Platelet Volume 7.4; Monocytes # (A) 0.2 k/uL (0-1.0); Monocytes % (A) 2 %; Neutrophils # (A) 7.2 k/uL (1.3-7.7); Neutrophils % (A) 68 %; Platelet Count 347 k/uL (150-450); RBC 5.09 m/uL (4.30-5.90); RDW 12.1 % (11.5-15.5); WBC 10.5 k/uL (3.8-10.6)
[2023-11-29 22:20] LABS: ALT 93 U/L (4-49); AST 214 U/L (17-59); African American GFR (CKD) >90 (>60 ml/min/1.73 sqM); Albumin 5.3 g/dL (3.5-5.0); Alkaline Phosphatase 310 U/L (38-126); Amylase 91 U/L (30-110); Anion Gap 27 mmol/L; Blood Urea Nitrogen 12 mg/dL (9-20); Calcium 9.2 mg/dL (8.4-10.2); Carbon Dioxide 11 mmol/L (22-30); Chloride 105 mmol/L (98-107); Glucose 96 mg/dL (74-99); Lipase 709 U/L (23-300); Magnesium 1.4 mg/dL (1.6-2.3); Non-African American GFR(CKD) >90 (>60 ml/min/1.73 sqM); Sodium 143 mmol/L (137-145); Total Bilirubin 0.8 mg/dL (0.2-1.3); Total Protein 8.3 g/dL (6.3-8.2)
[2023-11-29 22:23] LABS: INR 0.9 (<1.2); Partial Thromboplastin Time 22.7 sec (22.0-30.0); Prothrombin Time 9.8 sec (10.0-12.5)
[2023-11-29] MEDS: ONDANSETRON 4 MG/2 ML VIAL IVP STA (23:13)
[2023-11-29] MEDS: SODIUM CHLORIDE 0.9% 2,000 ML IV STA (23:15)
[2023-11-29] MEDS: KETOROLAC 15 MG/ML 1 ML VIAL IVP STA (23:20)
--- NOTE | 2023-11-30 | CT ---
EXAM: CT Abdomen and Pelvis With Intravenous Contrast CLINICAL HISTORY: Increased nausea vomiting diarrhea 23 days. TECHNIQUE: Axial computed tomography images of the abdomen and pelvis with intravenous contrast. CTDI is 17.3 mGy and DLP is 830.3 mGy-cm. This CT exam was performed using one or more of the following dose reduction techniques: automated exposure control, adjustment of the mA and/or kV according to patient size, and/or use of iterative reconstruction technique. COMPARISON: CT abdomen and pelvis with contrast dated 11/17/2023 FINDINGS: Lung bases: Unremarkable. No mass. No consolidation. ABDOMEN: Liver: Hepatic steatosis. Gallbladder and bile ducts: Cholecystectomy. No ductal dilation. Pancreas: Subtle peripancreatic fat stranding noted surrounding the tail the pancreas is new from the previous examination. The pancreas is otherwise unremarkable and demonstrates normal enhancement. No ductal dilation or pseudocyst. Spleen: Unremarkable. No splenomegaly. Adrenals: Unremarkable. No mass. Kidneys and ureters: Kidneys demonstrate normal enhancement with subcentimeter nonobstructing nephrolithiasis, stable in appearance. No hydronephrosis or ureteral stones. Delayed phase imaging demonstrates normal excreted contrast in the renal collecting systems and proximal ureters. Stomach and bowel: The stomach is mildly distended with fluid and gas. No gastric mucosal thickening noted. No evidence for bowel obstruction. No asymmetric bowel mucosal abnormality identified. Similar mural fat deposition noted within the decompressed colon. No diverticulitis. PELVIS: Appendix: Status post appendectomy. Bladder: The bladder is mild to moderately distended without significant wall abnormalities or calcifications. Reproductive: Unremarkable as visualized. ABDOMEN and PELVIS: Intraperitoneal space: Unremarkable. No free air. No significant fluid collection. Bones/joints: No acute fracture. No dislocation. Soft tissues: Unremarkable. Vasculature: Unremarkable. No abdominal aortic aneurysm. Lymph nodes: Unremarkable. No enlarged lymph nodes. IMPRESSION: 1. Subtle peripancreatic fat stranding noted surrounding the tail the pancreas is new from the previous examination. The pancreas is otherwise unremarkable and demonstrates normal enhancement. No ductal dilation or pseudocyst. Findings are most consistent with subtle acute pancreatitis. 2. No evidence for bowel obstruction. No asymmetric bowel mucosal abnormality identified. Similar mural fat deposition noted within the decompressed colon. No diverticulitis. No free intraperitoneal fluid or pneumoperitoneum.
[2023-11-30] MEDS: MORPHINE SULFATE 4 MG/ML SYRINGE IVP STA (00:40)
[2023-11-30 01:27] LABS: Appearance,Urine Clear (Clear); Bilirubin,Urine Negative (Negative); Blood,Urine Negative (Negative); Color,Urine Yellow; Glucose,Urine (UA) Negative (Negative); Hyaline Casts,Urine 48 /lpf (0-2); Ketones,Urine 3+ (Negative); Leukocyte Esterase,Urine Negative (Negative); Mucus,Urine Few /hpf; Nitrite,Urine Negative (Negative); PH, Urine 5.5 (5.0-8.0); Protein,Urine 2+ (Negative); RBC,Urine <1 /hpf (0-5); Urobilinogen,Urine <2.0 mg/dL (<2.0); WBC,Urine 3 /hpf (0-5)
[2023-11-30] MEDS ORDERED: NALOXONE 0.4 MG/ML 1 ML VIAL IV PRN (01:27)
[2023-11-30] MEDS ORDERED: HYDROmorphone 0.5 MG/0.5 ML SYRINGE IVP PRN (01:33)
[2023-11-30] MEDS: METOCLOPRAMIDE 5 MG/ML 2 ML VIAL IVP STA (01:44)
[2023-11-30] MEDS: SODIUM CHLORIDE 0.9% 1,000 ML IV SCH (01:47)
[2023-11-30 02:06] LABS: Specific Gravity,Urine 1.049 (1.001-1.035)
[2023-11-30] MEDS: ONDANSETRON 4 MG/2 ML VIAL IVP PRN (02:19)
[2023-11-30] MEDS: THIAMINE 100 MG/ML 2 ML VIAL IM STA (02:47)
[2023-11-30] MEDS: LORazepam 2 MG/ML INJ IV PRN ×3 (02:53→11:53)
[2023-11-30] MEDS: SODIUM CHLORIDE 0.9% 1,000 ML IV STA (03:44)
[2023-11-30 05:14] LABS: Glucose,Whole Blood 73 mg/dL (70-110)
[2023-11-30] MEDS: ACETAMINOPHEN TAB 325 MG TAB PO PRN (08:03)
[2023-11-30] MEDS: PANTOPRAZOLE 40 MG/10 ML VIAL IVP SCH (09:07)
--- NOTE | 2023-11-30 11:29 | P.GSCN ---
History of Present Illness Consult date: 11/30/23 History of present illness: CHIEF COMPLAINT: Abdominal pain HISTORY OF PRESENT ILLNESS: This is a 48-year-old male who presented with epigastric abdominal pain that started yesterday afternoon. Patient does have a known history of alcohol use disorder. He does attend AA. However he did drink wine on Wednesday and started to have pain yesterday afternoon. He does have a prior history of pancreatitis and reports that this feels like his similar episodes of pancreatitis. Lipase was elevated. Patient does have history of a cholecystectomy several years ago. CT scan did report evidence of acute pancreatitis. Surgical service consulted for pancreatitis. PAST MEDICAL HISTORY: Hypertension, Liver Disease, Seizure Disorder,pancreatitis, anemia, last seizure 2 yrs ago (2019), hepatitis A diagnosed in [facility], R shoulder torn rotator cuff., states pre-diabetic , states taking metformin for weight loss., states covid Aug 03 PAST SURGICAL HISTORY: Back Surgery, Cholecystectomy, Ear Surgery, foot surgery MEDICATIONS: See below ALLERGIES: See below SOCIAL HISTORY: Daily alcohol use REVIEW OF SYSTEMS: CONSTITUTIONAL: Denies fever or chills. HEENT: Denies blurred vision, vision changes, or eye pain. Denies hemoptysis CARDIOVASCULAR: Denies chest pain or pressure. RESPIRATORY: No shortness of breath. GASTROINTESTINAL: See HPI for pertinent findings HEMATOLOGIC: Denies bleeding disorders. GENITOURINARY: Denies any blood in urine or increased urinary frequency. SKIN: Denies pruitis. Denies rash. PHYSICAL EXAM: VITAL SIGNS: Reviewed GENERAL: Well-developed in no acute distress. HEENT: No sclera icterus. Extraocular movements grossly intact. Moist buccal mucosa. Head is atraumatic, normocephalic. No nasal drainage. ABDOMEN: Soft. Nondistended. Epigastric pain NEUROLOGIC: Alert and oriented. Cranial nerves II through XII grossly intact. LABORATORY DATA: WBC 10.5 Hgb 16.4 platelets 347 INR 0.9 Sodium 143 potassium 4.0 creatinine 0.70 Lactic acid 7.6 down to 3.1 Total bilirubin 0.8 AST 214 ALT 93 alk phos 310 Lipase 709 GGT 1257 IMAGING: CT scan abdomen pelvis reports subtle peripancreatic fat stranding noted surrounding the tail of the pancreas. Findings consistent with subtle acute pancreatitis. No evidence of bowel obstruction. ASSESSMENT: 1. Acute pancreatitis likely ETOH induced 2. History of cholecystectomy 3. History of alcohol use 4. Elevated LFTs likely due to alcoholic hepatitis 5. Hypomagnesemia PLAN: -Keep patient n.p.o. -Continue IV fluids -Continue pain management -Repeat lipase and CMP in a.m. -Replace magnesium and repeat magnesium level Physician Slag Mixer note has been reviewed by physician. Signing provider agrees with the documented findings, assessment, and plan of care. Past Medical History Past Medical History: Hypertension, Liver Disease, Seizure Disorder Additional Past Medical History / Comment(s): pancreatitis, anemia, last seizure 2 yrs ago (2019), hepatitis A diagnosed in [facility], R shoulder torn rotator cuff., states pre-diabetic , states taking metformin for weight loss., states covid Aug 03-"slight pneumonia"- denies current symptoms or residual cough. History of Any Multi-Drug Resistant Organisms: None Reported Past Surgical History: Back Surgery, Cholecystectomy, Ear Surgery Additional Past Surgical History / Comment(s): EGD, colonoscopy, bilateral myringotomies/tubes., cervical fusion (october 2020), foot surgery (sep 2020) Past Anesthesia/Blood Transfusion Reactions: No Reported Reaction Past Psychological History: Anxiety, Depression, PTSD Smoking Status: Current every day smoker Past Alcohol Use History: Abuse, Daily, Heavy Past Drug Use History: Cocaine, Marijuana - Past Family History Mother Family Medical History: Thyroid Disorder Father Additional Family Medical History / Comment(s): ETOH Medications and Allergies Home Medications Medication Instructions Recorded Confirmed Type Folic Acid 1 mg PO DAILY 05/18/17 11/30/23 History Pantoprazole [Protonix] 40 mg PO DAILY 09/13/19 11/30/23 History hydrOXYzine HCL 25 mg PO Q6H PRN 10/07/21 11/30/23 History Ibuprofen [Motrin] 400 mg PO Q6HR PRN #20 tab 11/02/23 11/30/23 Rx Cetirizine HCl [Zyrtec] 10 mg PO DAILY 11/18/23 11/30/23 History Dicyclomine [Bentyl] 20 mg PO QID PRN 11/18/23 11/30/23 History Famotidine [Pepcid] 20 - 40 mg PO DAILY PRN 11/18/23 11/30/23 History Omeprazole [PriLOSEC] 40 mg PO DAILY 11/18/23 11/30/23 History Ondansetron [Zofran] 8 mg PO Q8H PRN 11/18/23 11/30/23 History Pyridoxine HCl (Vitamin B6) 100 mg PO DAILY 11/18/23 11/30/23 History [Vitamin B-6] Sertraline [Zoloft] 25 mg PO DAILY 11/18/23 11/30/23 History traZODone HCL [Desyrel] 50 mg PO HS 11/18/23 11/30/23 History Magnesium Oxide [Mag-Ox] 400 mg PO TID 5 Days #15 tab 11/21/23 11/30/23 Rx Thiamine [Vitamin B-1] 100 mg PO DAILY #30 tab 11/21/23 11/30/23 Rx Allergies Allergy/AdvReac Type Severity Reaction Status Date / Time bupropion [From Wellbutrin] Allergy Unknown Verified 11/30/23 09:51 Penicillins Allergy Rash/Hives Verified 11/30/23 09:51 Surgical - Exam Vital Signs Temp Pulse Resp BP Pulse Ox 97.8 F 61 18 130/87 98 11/29/23 19:46 11/29/23 19:46 11/29/23 19:46 11/29/23 19:46 11/29/23 19:46 Results - Labs 11/29/23 21:50 11/29/23 21:50 Abnormal Lab Results - Last 24 Hours (Table) 11/29/23 11/29/23 11/29/23 Range/Units 21:50 21:50 21:50 PT 9.8 L (10.0-12.5) sec Carbon Dioxide 11 L (22-30) mmol/L Plasma Lactic Acid Kel 7.6 H* (0.7-2.0) mmol/L Magnesium 1.4 L (1.6-2.3) mg/dL GGT (0-73) U/L AST 214 H (17-59) U/L ALT 93 H (4-49) U/L Alkaline Phosphatase 310 H (38-126) U/L Total Protein 8.3 H (6.3-8.2) g/dL Albumin 5.3 H (3.5-5.0) g/dL Lipase 709 H (23-300) U/L Ur Specific [place] (1.001-1.035) Urine Protein (Negative) Urine Ketones (Negative) Hyaline Casts (0-2) /lpf Urine Mucus (None) /hpf 11/30/23 11/30/23 11/30/23 Range/Units 00:37 00:47 03:59 PT (10.0-12.5) sec Carbon Dioxide (22-30) mmol/L Plasma Lactic Acid Kel 8.1 H* (0.7-2.0) mmol/L Magnesium (1.6-2.3) mg/dL GGT 1257 H (0-73) U/L AST (17-59) U/L ALT (4-49) U/L Alkaline Phosphatase (38-126) U/L Total Protein (6.3-8.2) g/dL Albumin (3.5-5.0) g/dL Lipase (23-300) U/L Ur Specific [place] 1.049 H (1.001-1.035) Urine Protein 2+ H (Negative) Urine Ketones 3+ H (Negative) Hyaline Casts 48 H (0-2) /lpf Urine Mucus Few H (None) /hpf 11/30/23 11/30/23 Range/Units 03:59 08:00 PT (10.0-12.5) sec Carbon Dioxide (22-30) mmol/L Plasma Lactic Acid Kel 5.0 H* 3.1 H* (0.7-2.0) mmol/L Magnesium (1.6-2.3) mg/dL GGT (0-73) U/L AST (17-59) U/L ALT (4-49) U/L Alkaline Phosphatase (38-126) U/L Total Protein (6.3-8.2) g/dL Albumin (3.5-5.0) g/dL Lipase (23-300) U/L Ur Specific [place] (1.001-1.035) Urine Protein (Negative) Urine Ketones (Negative) Hyaline Casts (0-2) /lpf Urine Mucus (None) /hpf Diabetes panel 11/29/23 Range/Units 21:50 Sodium 143 (137-145) mmol/L Potassium 4.0 (3.5-5.1) mmol/L Chloride 105 (98-107) mmol/L Carbon Dioxide 11 L (22-30) mmol/L BUN 12 (9-20) mg/dL Creatinine 0.70 (0.66-1.25) mg/dL Glucose 96 (74-99) mg/dL Calcium 9.2 (8.4-10.2) mg/dL AST 214 H (17-59) U/L ALT 93 H (4-49) U/L Alkaline Phosphatase 310 H (38-126) U/L Total Protein 8.3 H (6.3-8.2) g/dL Albumin 5.3 H (3.5-5.0) g/dL Calcium panel 11/29/23 Range/Units 21:50 Calcium 9.2 (8.4-10.2) mg/dL Albumin 5.3 H (3.5-5.0) g/dL Pituitary panel 11/29/23 Range/Units 21:50 Sodium 143 (137-145) mmol/L Potassium 4.0 (3.5-5.1) mmol/L Chloride 105 (98-107) mmol/L Carbon Dioxide 11 L (22-30) mmol/L BUN 12 (9-20) mg/dL Creatinine 0.70 (0.66-1.25) mg/dL Glucose 96 (74-99) mg/dL Calcium 9.2 (8.4-10.2) mg/dL Adrenal panel 11/29/23 Range/Units 21:50 Sodium 143 (137-145) mmol/L Potassium 4.0 (3.5-5.1) mmol/L Chloride 105 (98-107) mmol/L Carbon Dioxide 11 L (22-30) mmol/L BUN 12 (9-20) mg/dL Creatinine 0.70 (0.66-1.25) mg/dL Glucose 96 (74-99) mg/dL Calcium 9.2 (8.4-10.2) mg/dL Total Bilirubin 0.8 (0.2-1.3) mg/dL AST 214 H (17-59) U/L ALT 93 H (4-49) U/L Alkaline Phosphatase 310 H (38-126) U/L Total Protein 8.3 H (6.3-8.2) g/dL Albumin 5.3 H (3.5-5.0) g/dL
[2023-11-30] MEDS ORDERED: LORazepam 2 MG/ML INJ IV PRN (11:54)
[2023-11-30] MEDS: chlordiazePOXIDE 25 MG CAP PO SCH (12:09)
[2023-11-30] MEDS: MAGNESIUM SULFATE-D5W PMX 1 GM in DEXTROSE/WATER 1 100ML.BAG IVPB SCH (12:09)
--- NOTE | 2023-11-30 13:09 | P.HPIM ---
History of Present Illness 48-year-old male, complains of nausea vomiting severe epigastric abdominal pain nonradiating. Patient has elevated lipase of 709, also CT showed peripancreatic fat stranding no evidence of bowel obstruction or gallstones were evident on the CAT scan. Patient does drink 1 pint of liquor every day and his last alcohol drink was wine on Wednesday which was 3 days ago patient is having withdrawals at this time. Patient is willing to quit alcohol completely and she he acknowledges all his problems are secondary to alcohol. REVIEW OF SYSTEMS: CONSTITUTIONAL: No fever, no malaise, no fatigue. HEENT: No recent visual problems or hearing problems. Denied any sore throat. CARDIOVASCULAR: No chest pain, orthopnea, PND, no palpitations, no syncope. PULMONARY: No shortness of breath, no cough, no hemoptysis. GASTROINTESTINAL: No diarrhea, no nausea, no vomiting, no abdominal pain. NEUROLOGICAL: No headaches, no weakness, no numbness. HEMATOLOGICAL: Denies any bleeding or petechiae. GENITOURINARY: Denies any burning micturition, frequency, or urgency. MUSCULOSKELETAL/RHEUMATOLOGICAL: Denies any joint pain, swelling, or any muscle pain. ENDOCRINE: Denies any polyuria or polydipsia. The rest of the 14-point review of systems is negative. PHYSICAL EXAMINATION: GENERAL: The patient is alert and oriented x3, not in any acute distress. Well developed, well nourished. Patient is undergoing withdrawals with tremors HEENT: Pupils are round and equally reacting to light. EOMI. No scleral icterus. No conjunctival pallor. Normocephalic, atraumatic. No pharyngeal erythema. No thyromegaly. CARDIOVASCULAR: S1 and S2 present. No murmurs, rubs, or gallops. PULMONARY: Chest is clear to auscultation, no wheezing or crackles. ABDOMEN: Soft, nontender, nondistended, normoactive bowel sounds. No palpable organomegaly. MUSCULOSKELETAL: No joint swelling or deformity. EXTREMITIES: No cyanosis, clubbing, or pedal edema. NEUROLOGICAL: Gross neurological examination did not reveal any focal deficits. SKIN: No rashes. Assessment and plan -Acute alcohol withdrawal: Patient will be started on Librium scheduled doses along with Ativan as needed for alcohol withdrawal social work consultation IV fluids thiamine supplementation, patient had seizures in the past with alcohol withdrawal -Mild alcoholic pancreatitis most of his abdominal pain is secondary to alcoholic gastritis, patient will remain n.p.o. patient will be started on clear liquid diet tomorrow patient on Protonix 40 mg twice a day -Acute alcoholic hepatitis -Alcohol physical dependence -Hypertension -Nicotine use: Counseling was provided Depression Hypomagnesemia secondary to alcoholism magnesium will be replaced DVT prophylaxis: Lovenox Past Medical History Past Medical History: Hypertension, Liver Disease, Seizure Disorder Additional Past Medical History / Comment(s): pancreatitis, anemia, last seizure 2 yrs ago (2019), hepatitis A diagnosed in [facility], R shoulder torn rotator cuff., states pre-diabetic , states taking metformin for weight loss., states covid Aug 03-"slight pneumonia"- denies current symptoms or residual cough. History of Any Multi-Drug Resistant Organisms: None Reported Past Surgical History: Back Surgery, Cholecystectomy, Ear Surgery Additional Past Surgical History / Comment(s): EGD, colonoscopy, bilateral myringotomies/tubes., cervical fusion (october 2020), foot surgery (sep 2020) Past Anesthesia/Blood Transfusion Reactions: No Reported Reaction Past Psychological History: Anxiety, Depression, PTSD Smoking Status: Current every day smoker Past Alcohol Use History: Abuse, Daily, Heavy Past Drug Use History: Cocaine, Marijuana - Past Family History Mother Family Medical History: Thyroid Disorder Father Additional Family Medical History / Comment(s): ETOH Medications and Allergies Home Medications Medication Instructions Recorded Confirmed Type Folic Acid 1 mg PO DAILY 05/18/17 11/30/23 History Pantoprazole [Protonix] 40 mg PO DAILY 09/13/19 11/30/23 History hydrOXYzine HCL 25 mg PO Q6H PRN 10/07/21 11/30/23 History Ibuprofen [Motrin] 400 mg PO Q6HR PRN #20 tab 11/02/23 11/30/23 Rx Cetirizine HCl [Zyrtec] 10 mg PO DAILY 11/18/23 11/30/23 History Dicyclomine [Bentyl] 20 mg PO QID PRN 11/18/23 11/30/23 History Famotidine [Pepcid] 20 - 40 mg PO DAILY PRN 11/18/23 11/30/23 History Omeprazole [PriLOSEC] 40 mg PO DAILY 11/18/23 11/30/23 History Ondansetron [Zofran] 8 mg PO Q8H PRN 11/18/23 11/30/23 History Pyridoxine HCl (Vitamin B6) 100 mg PO DAILY 11/18/23 11/30/23 History [Vitamin B-6] Sertraline [Zoloft] 25 mg PO DAILY 11/18/23 11/30/23 History traZODone HCL [Desyrel] 50 mg PO HS 11/18/23 11/30/23 History Magnesium Oxide [Mag-Ox] 400 mg PO TID 5 Days #15 tab 11/21/23 11/30/23 Rx Thiamine [Vitamin B-1] 100 mg PO DAILY #30 tab 11/21/23 11/30/23 Rx Allergies Allergy/AdvReac Type Severity Reaction Status Date / Time bupropion [From Wellbutrin] Allergy Unknown Verified 11/30/23 09:51 Penicillins Allergy Rash/Hives Verified 11/30/23 09:51 Physical Exam Vitals: Vital Signs Temp Pulse Resp BP Pulse Ox 11/30/23 12:30 110 H 148/103 96 11/30/23 12:15 117 H 145/107 99 11/30/23 12:00 104 H 131/102 11/30/23 11:45 112 H 142/100 11/30/23 11:30 102 H 17 144/99 94 L 11/30/23 11:15 104 H 20 154/103 95 11/30/23 10:47 98.4 F 120 H 20 150/92 99 11/30/23 09:10 105 H 18 141/89 98 11/30/23 09:08 98.8 F 11/30/23 07:42 100.7 F H 104 H 18 156/95 99 11/30/23 03:45 112 H 20 143/89 97 11/29/23 19:46 97.8 F 61 18 130/87 98 Intake and Output 11/29/23 11/30/23 11/30/23 22:59 06:59 14:59 Other: Voiding Method Toilet Weight 79.379 kg Results CBC & Chem 7: 11/29/23 21:50 11/29/23 21:50 Labs: Abnormal Lab Results - Last 24 Hours (Table) 11/29/23 11/29/23 11/29/23 Range/Units 21:50 21:50 21:50 PT 9.8 L (10.0-12.5) sec Carbon Dioxide 11 L (22-30) mmol/L Plasma Lactic Acid Kel 7.6 H* (0.7-2.0) mmol/L Magnesium 1.4 L (1.6-2.3) mg/dL GGT (0-73) U/L AST 214 H (17-59) U/L ALT 93 H (4-49) U/L Alkaline Phosphatase 310 H (38-126) U/L Total Protein 8.3 H (6.3-8.2) g/dL Albumin 5.3 H (3.5-5.0) g/dL Lipase 709 H (23-300) U/L Ur Specific Benedict (1.001-1.035) Urine Protein (Negative) Urine Ketones (Negative) Hyaline Casts (0-2) /lpf Urine Mucus (None) /hpf 11/30/23 11/30/23 11/30/23 Range/Units 00:37 00:47 03:59 PT (10.0-12.5) sec Carbon Dioxide (22-30) mmol/L Plasma Lactic Acid Kel 8.1 H* (0.7-2.0) mmol/L Magnesium (1.6-2.3) mg/dL GGT 1257 H (0-73) U/L AST (17-59) U/L ALT (4-49) U/L Alkaline Phosphatase (38-126) U/L Total Protein (6.3-8.2) g/dL Albumin (3.5-5.0) g/dL Lipase (23-300) U/L Ur Specific Benedict 1.049 H (1.001-1.035) Urine Protein 2+ H (Negative) Urine Ketones 3+ H (Negative) Hyaline Casts 48 H (0-2) /lpf Urine Mucus Few H (None) /hpf 11/30/23 11/30/23 Range/Units 03:59 08:00 PT (10.0-12.5) sec Carbon Dioxide (22-30) mmol/L Plasma Lactic Acid Kel 5.0 H* 3.1 H* (0.7-2.0) mmol/L Magnesium (1.6-2.3) mg/dL GGT (0-73) U/L AST (17-59) U/L ALT (4-49) U/L Alkaline Phosphatase (38-126) U/L Total Protein (6.3-8.2) g/dL Albumin (3.5-5.0) g/dL Lipase (23-300) U/L Ur Specific Benedict (1.001-1.035) Urine Protein (Negative) Urine Ketones (Negative) Hyaline Casts (0-2) /lpf Urine Mucus (None) /hpf
[2023-11-30] MEDS: MAGNESIUM OXIDE 400 MG TAB PO SCH (15:10)
[2023-11-30 20:49] LABS: Glucose,Whole Blood 77 mg/dL (70-110)
[2023-12-01 05:54] LABS: Glucose,Whole Blood 72 mg/dL (70-110)
[2023-12-01 07:28] LABS: ALT 57 U/L (4-49); AST 70 U/L (17-59); African American GFR (CKD) >90 (>60 ml/min/1.73 sqM); Albumin 3.9 g/dL (3.5-5.0); Alkaline Phosphatase 182 U/L (38-126); Anion Gap 18 mmol/L; Blood Urea Nitrogen 3 mg/dL (9-20); Calcium 7.9 mg/dL (8.4-10.2); Chloride 105 mmol/L (98-107); Glucose 70 mg/dL (74-99); Lipase 786 U/L (23-300); Magnesium 1.4 mg/dL (1.6-2.3); Non-African American GFR(CKD) >90 (>60 ml/min/1.73 sqM); Potassium 3.9 mmol/L (3.5-5.1); Sodium 132 mmol/L (137-145); Total Bilirubin 1.4 mg/dL (0.2-1.3); Total Protein 6.4 g/dL (6.3-8.2)
[2023-12-01 07:34] LABS: Carbon Dioxide 9 mmol/L (22-30)
[2023-12-01] MEDS: FOLIC ACID 1 MG TAB PO SCH (07:58)
[2023-12-01] MEDS: SERTRALINE 25 MG TAB PO SCH (07:58)
[2023-12-01] MEDS: THIAMINE 100 MG TAB PO SCH (07:58)
[2023-12-01] MEDS: ENOXAPARIN 40 MG/0.4 ML SYRINGE SQ SCH (07:58)
[2023-12-01] MEDS ORDERED: Magnesium Replacement Protocol 1 EACH MISC MISCELLANE PRN (08:47)
[2023-12-01 08:55] LABS: Glucose,Whole Blood 80 mg/dL (70-110)
[2023-12-01] MEDS: MAGNESIUM SULFATE-D5W PMX 1 GM in DEXTROSE/WATER 1 100ML.BAG IVPB SCH (11:24)
[2023-12-01] MEDS: HYDROmorphone 1 MG/ML 1 ML SYRINGE IVP PRN (11:33)
[2023-12-01 11:38] LABS: Glucose,Whole Blood 83 mg/dL (70-110)
--- NOTE | 2023-12-01 14:08 | XR ---
EXAMINATION TYPE: XR abdomen 2V DATE OF EXAM: 12/01/2023 COMPARISON: 324 HISTORY: Pain TECHNIQUE: Single supine KUB image of the abdomen is obtained FINDINGS: Distended loop of left sided small bowel measuring up to 2.9 cm air-fluid level seen is nonspecific. Gas and fecal material is seen in non-distended colon. No convincing evidence for pneumoperitoneum. No unusual calcifications. The lung bases are clear. The osseous structures are intact. IMPRESSION: 1. Nonspecific nonobstructive bowel gas pattern. Findings could reflect focal ileus.
--- NOTE | 2023-12-01 16:25 | P.PN ---
Subjective Progress Note Date: 12/01/23 CHIEF COMPLAINT: Pancreatitis HISTORY OF PRESENT ILLNESS: Patient continues to have epigastric abdominal pain. He reports is slightly better than yesterday. He feels hungry. Denies any nausea or vomiting. Afebrile. Total bilirubin 1.4 LFTs trending downwards. Lipase around the same at 786. PHYSICAL EXAM: VITAL SIGNS: Reviewed. GENERAL: Well-developed in no acute distress. ABDOMEN: Soft. Nondistended. Epigastric tenderness NEUROLOGIC: Alert and oriented. Cranial nerves II through XII grossly intact. ASSESSMENT: 1. Acute pancreatitis likely ETOH induced 2. History of cholecystectomy 3. History of alcohol use 4. Elevated LFTs likely due to alcoholic hepatitis 5. Hypomagnesemia PLAN: -Advance diet to clear liquids -Repeat labs in a.m. -Continue IV fluids -Medicine service replacing magnesium Physician Marshmallow Runner note has been reviewed by physician. Signing provider agrees with the documented findings, assessment, and plan of care. Objective - Vital Signs Vital signs: Vital Signs Temp 98.3 F 12/01/23 16:11 Pulse 111 H 12/01/23 16:11 Resp 18 12/01/23 16:11 BP 136/97 12/01/23 16:11 Pulse Ox 99 12/01/23 16:11 FiO2 Intake & Output 11/30/23 12/01/23 12/01/23 18:59 06:59 18:59 Output Total 725 725 Balance -725 -725 Weight 79.379 kg Output: Urine 725 725 Other: Voiding Method Toilet Toilet Urinal Urinal # Voids 1 - Labs CBC & Chem 7: 11/29/23 21:50 12/01/23 06:27 Labs: Abnormal Lab Results - Last 24 Hours (Table) 12/01/23 12/01/23 Range/Units 06:27 14:18 Sodium 132 L (137-145) mmol/L Carbon Dioxide 9 L* (22-30) mmol/L BUN 3 L (9-20) mg/dL Creatinine 0.48 L (0.66-1.25) mg/dL Glucose 70 L (74-99) mg/dL Plasma Lactic Acid Kel <0.5 L (0.7-2.0) mmol/L Calcium 7.9 L (8.4-10.2) mg/dL Magnesium 1.4 L (1.6-2.3) mg/dL Total Bilirubin 1.4 H (0.2-1.3) mg/dL AST 70 H (17-59) U/L ALT 57 H (4-49) U/L Alkaline Phosphatase 182 H (38-126) U/L Lipase 786 H (23-300) U/L Microbiology - Last 24 Hours (Table) 11/30/23 02:24 Blood Culture - Preliminary Blood 11/30/23 02:39 Blood Culture - Preliminary Blood
[2023-12-01 16:37] LABS: Glucose,Whole Blood 81 mg/dL (70-110)
--- NOTE | 2023-12-01 18:11 | P.PN ---
Subjective Progress Note Date: 12/01/23 48-year-old male, complains of nausea vomiting severe epigastric abdominal pain nonradiating. Patient has elevated lipase of 709, also CT showed peripancreatic fat stranding no evidence of bowel obstruction or gallstones were evident on the CAT scan. Patient does drink 1 pint of liquor every day and his last alcohol drink was wine on Wednesday which was 3 days ago patient is having withdrawals at this time. Patient is willing to quit alcohol completely and she he acknowledges all his problems are secondary to alcohol. 12/01/2023 Patient evaluated in follow up today. Continues to report mild epigastric discomfort as well as generalized myalgia. Patient has been NPO and will be upgraded to clear liquid diet today per surgery. He does feel hungry. Lipase remains elevated in the 700s. Last drink on wednesday continues on CIWA scale and librium. PHYSICAL EXAMINATION: GENERAL: The patient is alert and oriented x3, not in any acute distress. Well developed, well nourished. Patient is undergoing withdrawals with tremors HEENT: Pupils are round and equally reacting to light. EOMI. No scleral icterus. No conjunctival pallor. Normocephalic, atraumatic. No pharyngeal erythema. No thyromegaly. CARDIOVASCULAR: S1 and S2 present. No murmurs, rubs, or gallops. PULMONARY: Chest is clear to auscultation, no wheezing or crackles. ABDOMEN: Soft, nontender, nondistended, normoactive bowel sounds. No palpable organomegaly. MUSCULOSKELETAL: No joint swelling or deformity. EXTREMITIES: No cyanosis, clubbing, or pedal edema. NEUROLOGICAL: Gross neurological examination did not reveal any focal deficits. SKIN: No rashes. Assessment and plan -Acute alcohol withdrawal: Remains on ativan ciwa protocol and scheduled librium. Daily thiamine supplementation. Monitor for acute DTs. -Mild alcoholic pancreatitis most of his abdominal pain is secondary to alcoholic gastritis, patient will be started on clear liquid diet per surgery, continue on Protonix 40 mg twice a day -Acute alcoholic hepatitis -Alcohol physical dependence -Hypertension -Nicotine use: Counseling was provided Depression Hypomagnesemia secondary to alcoholism magnesium will be replaced DVT prophylaxis: Lovenox Continue IV fluids, clear liquid diet. Abdominal xray and follow up labs in the AM. The impression and plan of care has been dictated by Selena El, Nurse Practitioner as directed. Dr. Odalis MD I have performed a history and physical examination and medical decision making of this patient, discussed the same with the dictator, and agree with the dictators assessment and plan as written, documented as a scribe. Based on total visit time, I have performed more than 50% of this visit. Objective - Vital Signs Vital signs: Vital Signs Temp 98.2 F 12/01/23 07:41 Pulse 102 H 12/01/23 07:41 Resp 18 12/01/23 07:41 BP 137/93 12/01/23 07:41 Pulse Ox 100 12/01/23 07:41 FiO2 Intake & Output 11/30/23 12/01/23 12/01/23 18:59 06:59 18:59 Output Total 725 475 Balance -725 -475 Weight 79.379 kg Output: Urine 725 475 Other: Voiding Method Toilet Toilet Urinal Urinal # Voids 1 - Labs CBC & Chem 7: 11/29/23 21:50 12/01/23 06:27 Labs: Abnormal Lab Results - Last 24 Hours (Table) 11/30/23 11/30/23 12/01/23 Range/Units 03:59 08:00 06:27 Sodium 132 L (137-145) mmol/L Carbon Dioxide 9 L* (22-30) mmol/L BUN 3 L (9-20) mg/dL Creatinine 0.48 L (0.66-1.25) mg/dL Glucose 70 L (74-99) mg/dL Plasma Lactic Acid Kel 3.1 H* (0.7-2.0) mmol/L Calcium 7.9 L (8.4-10.2) mg/dL Magnesium 1.4 L (1.6-2.3) mg/dL Total Bilirubin 1.4 H (0.2-1.3) mg/dL GGT 1257 H (0-73) U/L AST 70 H (17-59) U/L ALT 57 H (4-49) U/L Alkaline Phosphatase 182 H (38-126) U/L Lipase 786 H (23-300) U/L Assessment and Plan Time with Patient: Less than 30
[2023-12-01 20:16] LABS: Glucose,Whole Blood 130 mg/dL (70-110)
[2023-12-02 05:02] LABS: ALT 43 U/L (4-49); AST 38 U/L (17-59); African American GFR (CKD) >90 (>60 ml/min/1.73 sqM); Albumin 3.7 g/dL (3.5-5.0); Alkaline Phosphatase 175 U/L (38-126); Anion Gap 10 mmol/L; Blood Urea Nitrogen 2 mg/dL (9-20); Calcium 8.7 mg/dL (8.4-10.2); Carbon Dioxide 18 mmol/L (22-30); Chloride 103 mmol/L (98-107); Glucose 114 mg/dL (74-99); Lipase 394 U/L (23-300); Magnesium 1.3 mg/dL (1.6-2.3); Non-African American GFR(CKD) >90 (>60 ml/min/1.73 sqM); Potassium 3.5 mmol/L (3.5-5.1); Sodium 131 mmol/L (137-145); Total Protein 6.4 g/dL (6.3-8.2)
[2023-12-02] MEDS: MAGNESIUM SULFATE-D5W PMX 1 GM in DEXTROSE/WATER 1 100ML.BAG IVPB SCH (08:36)
[2023-12-02] MEDS: POTASSIUM CHLORIDE ER 20 MEQ TAB.ER PO STA (09:31)
--- NOTE | 2023-12-02 12:41 | P.PN ---
Subjective Progress Note Date: 12/02/23 CHIEF COMPLAINT: Pancreatitis HISTORY OF PRESENT ILLNESS: Patient reports he is feeling better today. His epigastric pain is less. He has had no further nausea or vomiting. He reports feeling hungry. He is tolerating the clear liquid diet. Afebrile. Mildly tachycardic. Sodium 131 potassium 3.5 CO2 is 18 creatinine 0.35 magnesium 1.3 lipase is down from 786-394 LFTs trending down PHYSICAL EXAM: VITAL SIGNS: Reviewed. GENERAL: Well-developed in no acute distress. ABDOMEN: Soft. Nondistended. Mild epigastric tenderness NEUROLOGIC: Alert and oriented. Cranial nerves II through XII grossly intact. ASSESSMENT: 1. Acute pancreatitis likely ETOH induced 2. History of cholecystectomy 3. History of alcohol use 4. Elevated LFTs likely due to alcoholic hepatitis 5. Hypomagnesemia PLAN: -Advance diet to full liquids -Continue pain management -Continue to correct magnesium level -Encourage patient to ambulate Physician Workers Compensation Adjuster note has been reviewed by physician. Signing provider agrees with the documented findings, assessment, and plan of care. Objective - Vital Signs Vital signs: Vital Signs Temp 98.2 F 12/02/23 07:34 Pulse 105 H 12/02/23 07:34 Resp 16 12/02/23 07:34 BP 148/99 12/02/23 07:34 Pulse Ox 98 12/02/23 07:34 FiO2 Intake & Output 12/01/23 12/02/23 12/02/23 18:59 06:59 18:59 Intake Total 480 480 Output Total 1250 Balance -770 480 Intake: Oral 480 480 Output: Urine 1250 Other: Voiding Method Toilet Toilet Urinal Urinal # Voids 3 - Labs CBC & Chem 7: 11/29/23 21:50 12/02/23 04:33 Labs: Abnormal Lab Results - Last 24 Hours (Table) 12/01/23 12/01/23 12/02/23 Range/Units 14:18 20:02 04:33 Sodium 131 L (137-145) mmol/L Carbon Dioxide 18 L (22-30) mmol/L BUN 2 L (9-20) mg/dL Creatinine 0.35 L (0.66-1.25) mg/dL Glucose 114 H (74-99) mg/dL POC Glucose (mg/dL) 130 H (70-110) mg/dL Plasma Lactic Acid Kel <0.5 L (0.7-2.0) mmol/L Magnesium 1.3 L (1.6-2.3) mg/dL Alkaline Phosphatase 175 H (38-126) U/L Lipase 394 H (23-300) U/L Microbiology - Last 24 Hours (Table) 11/30/23 02:24 Blood Culture - Preliminary Blood 11/30/23 02:39 Blood Culture - Preliminary Blood
[2023-12-02] MEDS: LACTATED RINGERS 1,000 ML IV SCH (15:16)
[2023-12-02] MEDS: SODIUM CHLORIDE 0.9% 1,000 ML IV SCH (20:12)
--- NOTE | 2023-12-02 20:18 | P.PN ---
Subjective Progress Note Date: 12/02/23 48-year-old male, complains of nausea vomiting severe epigastric abdominal pain nonradiating. Patient has elevated lipase of 709, also CT showed peripancreatic fat stranding no evidence of bowel obstruction or gallstones were evident on the CAT scan. Patient does drink 1 pint of liquor every day and his last alcohol drink was wine on Wednesday which was 3 days ago patient is having withdrawals at this time. Patient is willing to quit alcohol completely and she he acknowledges all his problems are secondary to alcohol. 12/01/2023 Patient evaluated in follow up today. Continues to report mild epigastric discomfort as well as generalized myalgia. Patient has been NPO and will be upgraded to clear liquid diet today per surgery. He does feel hungry. Lipase remains elevated in the 700s. Last drink on wednesday continues on CIWA scale and librium. 12/02/2023 Patient evaluated today in follow up. Has been upgraded to full liquid diet as tolerated. He has not had much appetite. Blood work today has improved. Sodium now 131, BUN 2, creatinine 0.35, lipase 394. LFTs are improving. Magnesium 1.3 today. He continues on scheduled magnesium and will receive IV supplementation today as wel. General surgery following. Review of Systems Constitutional: Denied any fatigue denied any fever. Cardio vascular: denied any chest pain, palpitations Gastrointestinal: Reports nausea and mild diffuse abdominal pain, vomiting, diarrhea Pulmonary: Denied any shortness of breath cough Neurologic denied any new focal deficits reports weakness. PHYSICAL EXAMINATION: GENERAL: The patient is alert and oriented x3, not in any acute distress. Well developed, well nourished. Patient is undergoing withdrawals with tremors HEENT: Pupils are round and equally reacting to light. EOMI. No scleral icterus. No conjunctival pallor. Normocephalic, atraumatic. No pharyngeal erythema. No thyromegaly. CARDIOVASCULAR: S1 and S2 present. No murmurs, rubs, or gallops. PULMONARY: Chest is clear to auscultation, no wheezing or crackles. ABDOMEN: Soft, nontender, nondistended, normoactive bowel sounds. No palpable organomegaly. MUSCULOSKELETAL: No joint swelling or deformity. EXTREMITIES: No cyanosis, clubbing, or pedal edema. NEUROLOGICAL: Gross neurological examination did not reveal any focal deficits. SKIN: No rashes. Assessment and plan -Acute alcohol withdrawal: Remains on ativan ciwa protocol and scheduled librium. Daily thiamine supplementation. Monitor for acute DTs. -Mild alcoholic pancreatitis most of his abdominal pain is secondary to alcoholic gastritis, diet is being advanced, continue on Protonix 40 mg twice a day -Acute alcoholic hepatitis -Alcohol physical dependence -Hypertension -Nicotine use: Counseling was provided Depression Hypomagnesemia secondary to alcoholism magnesium will be replaced, continues on oral supplementation daily and will receive IV magnesium today as well. DVT prophylaxis: Lovenox Continue IV fluids, diet is being advanced. Follow up labs in the AM. Physical therapy has been consulted for evaluation as patient has been mostly bedrest and requiring staff assistance to ambulate to the restroom. General surgery following. The impression and plan of care has been dictated by Selena El Nurse Practitioner as directed. Dr. Odalis MD I have performed a history and physical examination and medical decision making of this patient, discussed the same with the dictator, and agree with the dictators assessment and plan as written, documented as a scribe. Based on total visit time, I have performed more than 50% of this visit. Objective - Vital Signs Vital signs: Vital Signs Temp 97.9 F 12/02/23 14:00 Pulse 106 H 12/02/23 14:00 Resp 17 12/02/23 14:00 BP 118/81 12/02/23 14:00 Pulse Ox 98 12/02/23 14:00 FiO2 Intake & Output 12/01/23 12/02/23 12/02/23 18:59 06:59 18:59 Intake Total 480 480 Output Total 1250 Balance -770 480 Intake: Oral 480 480 Output: Urine 1250 Other: Voiding Method Toilet Toilet Urinal Urinal # Voids 3 3 - Labs CBC & Chem 7: 11/29/23 21:50 12/02/23 04:33 Labs: Abnormal Lab Results - Last 24 Hours (Table) 12/01/23 12/01/23 12/02/23 Range/Units 14:18 20:02 04:33 Sodium 131 L (137-145) mmol/L Carbon Dioxide 18 L (22-30) mmol/L BUN 2 L (9-20) mg/dL Creatinine 0.35 L (0.66-1.25) mg/dL Glucose 114 H (74-99) mg/dL POC Glucose (mg/dL) 130 H (70-110) mg/dL Plasma Lactic Acid Kel <0.5 L (0.7-2.0) mmol/L Magnesium 1.3 L (1.6-2.3) mg/dL Alkaline Phosphatase 175 H (38-126) U/L Lipase 394 H (23-300) U/L Microbiology - Last 24 Hours (Table) 11/30/23 02:24 Blood Culture - Preliminary Blood 11/30/23 02:39 Blood Culture - Preliminary Blood Assessment and Plan Time with Patient: Less than 30
[2023-12-03 08:08] VITALS: RESP 16
[2023-12-03 09:30] LABS: BUN/Creat Ratio <7.00 Ratio (12.00-20.00); Blood Urea Nitrogen <3.5 mg/dL (9.0-27.0); Calcium 9.4 mg/dL (8.7-10.3); Carbon Dioxide 22.1 mmol/L (21.6-31.8); Chloride 101 mmol/L (96-109); Glucose 107 mg/dL (70-110); Magnesium 1.2 mg/dL (1.5-2.4); Potassium 3.5 mmol/L (3.5-5.5); Sodium 137 mmol/L (135-145)
[2023-12-03 14:14] VITALS: BP 126/86; PULSE 98; TEMP 98.5
[2023-12-03] MEDS: MAGNESIUM SULFATE-D5W PMX 1 GM in DEXTROSE/WATER 1 100ML.BAG IVPB SCH (14:20)
--- NOTE | 2023-12-03 15:49 | P.PN ---
Subjective Progress Note Date: 12/03/23 CHIEF COMPLAINT: Pancreatitis HISTORY OF PRESENT ILLNESS: Patient continues to have some epigastric pain. He is tolerating the full liquids. Denies any nausea or vomiting. He does have a history of stomach ulcers. Afebrile. Magnesium 1.2 and being replaced PHYSICAL EXAM: VITAL SIGNS: Reviewed. GENERAL: Well-developed in no acute distress. ABDOMEN: Soft. Nondistended. Mild epigastric tenderness NEUROLOGIC: Alert and oriented. Cranial nerves II through XII grossly intact. ASSESSMENT: 1. Acute pancreatitis likely ETOH induced 2. History of cholecystectomy 3. History of alcohol use 4. Elevated LFTs likely due to alcoholic hepatitis 5. Hypomagnesemia PLAN: -Recommend EGD due to patient's history of stomach ulcers. EGD can be completed as outpatient if patient discharged today -Avoid alcohol use -Continue PPI Physician Managing Manager note has been reviewed by physician. Signing provider agrees with the documented findings, assessment, and plan of care. Objective - Vital Signs Vital signs: Vital Signs Temp 98.6 F 12/03/23 07:42 Pulse 90 12/03/23 07:42 Resp 16 12/03/23 07:42 BP 134/90 12/03/23 07:42 Pulse Ox 100 12/03/23 07:42 FiO2 Intake & Output 12/02/23 12/03/23 12/03/23 18:59 06:59 18:59 Other: # Voids 6 2 - Labs CBC & Chem 7: 11/29/23 21:50 12/03/23 05:45 Labs: Abnormal Lab Results - Last 24 Hours (Table) 12/03/23 Range/Units 05:45 Anion Gap 13.90 H (4.00-12.00) mmol/L BUN <3.5 L (9.0-27.0) mg/dL Creatinine 0.5 L (0.6-1.5) mg/dL BUN/Creatinine Ratio <7.00 L (12.00-20.00) Ratio Magnesium 1.2 L (1.5-2.4) mg/dL Microbiology - Last 24 Hours (Table) 11/30/23 02:24 Blood Culture - Preliminary Blood 11/30/23 02:39 Blood Culture - Preliminary Blood
[2023-12-03] MEDS: POTASSIUM CHLORIDE ER 20 MEQ TAB.ER PO STA (15:51)
--- NOTE | 2023-12-06 08:59 | P.DS ---
Providers Date of admission: 11/30/23 01:36 Attending physician: Michael Farrell MD Consults: 11/30/23 01:27 Consult Physician Urgent Consulting Provider: Cristóbal Miller Consult Reason/Comments: Pancreatitis Do you want consulting provider notified?: Yes Primary care physician: Physician Nonstaff Hospital Course: Final Diagnosis -Acute alcohol withdrawal treated with ativan and librium. -Mild alcoholic pancreatitis most of his abdominal pain is secondary to alcoholic gastritis -Acute alcoholic hepatitis -Alcohol physical dependence -Hypertension -Nicotine use: Counseling was provided Discharge Disposition Patient is stable for discharge home. Patient has been recommended to follow-up with general surgery and appointment has been made for Wednesday and patient be set up for an outpatient endoscopy. Patient is discharged on a Bronkosol twice a day and advised to avoid alcohol. Repeat labs in 2 to 3 days. Advance diet as tolerated. Hospital Course 48-year-old male, complains of nausea vomiting severe epigastric abdominal pain nonradiating. Has a medical history significant for alcohol use, hypertension and chronic nicotine use. Patient has elevated lipase of 709, also CT showed peripancreatic fat stranding no evidence of bowel obstruction or gallstones were evident on the CAT scan. Patient does drink 1 pint of liquor every day and his last alcohol drink was wine on Wednesday which was 3 days ago. Patient was admitted to the hospital under medicine and started on IV Ativan CIWA protocol. Patient is willing to quit alcohol completely and he acknowledges all his problems are secondary to alcohol. General surgery was consulted for the abdominal pain. He was started on full liquid diet. Patient has not had much alcohol and he did require aggressive magnesium replacement. General surgery was recommending endoscopy and this will be set up on an outpatient basis. Clinically patient is improved he is no longer having signs of alcohol withdrawal and he has been weaned off of the benzodiazepines. Patient does not have any chest pain or shortness of breath no nausea vomiting or diarrhea at this time. His abdominal pain is mild in nature rating it a 3 out of 10 and has overall improved since admission. Did not has not maintained on a full liquid diet and he is not having any abdominal pain worse after eating. Hemodynamically he is stable he will be discharged home with the above-mentioned recommendations. Please see medication reconciliation for a list of current medications. Thank you for allowing us to participate in the care of this patient. The impression and plan of care has been dictated by Selena El Nurse Practitioner as directed. Dr. Odalis MD I have performed a history and physical examination and medical decision making of this patient, discussed the same with the dictator, and agree with the dictators assessment and plan as written, documented as a scribe. Based on total visit time, I have performed more than 50% of this visit. Patient Condition at Discharge: Good Plan - Discharge Summary Discharge Rx Participant: No New Discharge Prescriptions: Continue Folic Acid 1 mg PO DAILY Ibuprofen [Motrin] 400 mg PO Q6HR PRN #20 tab PRN Reason: Pain Sertraline [Zoloft] 25 mg PO DAILY Thiamine [Vitamin B-1] 100 mg PO DAILY #30 tab Magnesium Oxide [Mag-Ox] 400 mg PO TID 10 Days #30 tab Ondansetron [Zofran] 8 mg PO Q8H PRN #15 tab PRN Reason: Nausea And Vomiting hydrOXYzine HCL 25 mg PO Q6H PRN PRN Reason: Anxiety Pyridoxine HCl (Vitamin B6) [Vitamin B-6] 100 mg PO DAILY traZODone HCL [Desyrel] 50 mg PO HS Cetirizine HCl [Zyrtec] 10 mg PO DAILY Dicyclomine [Bentyl] 20 mg PO QID PRN PRN Reason: Pain/Cramping Omeprazole [PriLOSEC] 40 mg PO DAILY #30 cap Discontinued Pantoprazole [Protonix] 40 mg PO DAILY Famotidine [Pepcid] 20 - 40 mg PO DAILY PRN PRN Reason: Gi Upset Discharge Medication List Folic Acid 1 mg PO DAILY 05/18/17 [History] hydrOXYzine HCL 25 mg PO Q6H PRN 10/07/21 [History] Ibuprofen [Motrin] 400 mg PO Q6HR PRN #20 tab 11/02/23 [Rx] Cetirizine HCl [Zyrtec] 10 mg PO DAILY 11/18/23 [History] Dicyclomine [Bentyl] 20 mg PO QID PRN 11/18/23 [History] Pyridoxine HCl (Vitamin B6) [Vitamin B-6] 100 mg PO DAILY 11/18/23 [History] Sertraline [Zoloft] 25 mg PO DAILY 11/18/23 [History] traZODone HCL [Desyrel] 50 mg PO HS 11/18/23 [History] Thiamine [Vitamin B-1] 100 mg PO DAILY #30 tab 11/21/23 [Rx] Magnesium Oxide [Mag-Ox] 400 mg PO TID 10 Days #30 tab 12/03/23 [Rx] Omeprazole [PriLOSEC] 40 mg PO DAILY #30 cap 12/03/23 [Rx] Ondansetron [Zofran] 8 mg PO Q8H PRN #15 tab 12/03/23 [Rx] Follow up Appointment(s)/Referral(s): Noemy KURTZ, Donovan [Other] - 1-2 Days [facility] [NON-STAFF] - 1 Week Nonstaff,Physician [Primary Care Provider] - 1-2 days Cristóbal Miller MD [STAFF PHYSICIAN] - 12/07/23 3:00 pm Ambulatory/Diagnostic Orders: Basic Metabolic Panel [LAB.AMB] Time Frame: 3 Days, Location: None Selected Complete Blood Count w/diff [LAB.AMB] Location: None Selected Magnesium [LAB.AMB] Time Frame: 3 Days, Location: None Selected Patient Instructions/Handouts: Gastritis (DC), Pancreatitis (DC) Activity/Diet/Wound Care/Special Instructions: Extra strength and motrin for pain control. If you need stronger pain medication please discuss with your family doctor. Pain management information will be given as well. Discharge/Stand Alone Forms: [facility], Outpatient Counseling, In Substance Abuse Facilities Discharge Disposition: HOME SELF-CARE
== END 2023-12-03 19:06 | disposition home or self-care (01) | DRG 439 ==
LOC: EC 19:27 → 3SCARD 11-30 01:36 → 4SSUR 12-01 23:34
PROVIDERS: ADMIT Internal Medicine; ATTEND Internal Medicine
DX: K85.20 Alcohol induced acute pancreatitis without necrosis or infection (principal); F10.239 Alcohol dependence with withdrawal, unspecified; K70.10 Alcoholic hepatitis without ascites; K29.20 Alcoholic gastritis without bleeding; F32.A Depression, unspecified; R79.89 Other specified abnormal findings of blood chemistry; F43.10 Post-traumatic stress disorder, unspecified; F17.210 Nicotine dependence, cigarettes, uncomplicated; E83.42 Hypomagnesemia; Z87.11 Personal history of peptic ulcer disease; Z88.6 Allergy status to analgesic agent; Z88.0 Allergy status to penicillin; G40.909 Epilepsy, unspecified, not intractable, without status epilepticus; D64.9 Anemia, unspecified; Z79.84 Long term (current) use of oral hypoglycemic drugs; I10 Essential (primary) hypertension; Z71.6 Tobacco abuse counseling
CPT/HCPCS: 36415; 71046; 74019; 74177; 80048; 80053; 81001; 82150; 82977; 83605; 83690; 83735; 84484; 85025; 85610; 85730; 87040; 93005; 96361; 96365; 96366; 96372; 96375; 96376; 99285

== ENCOUNTER → 2023-12-06 | Outpatient (CLI) | payer BC ==
[2023-12-06 22:27] LABS: Basophils # (A) 0.03 X 10*3/uL (0.00-0.10); Basophils % (A) 0.4 %; Eosinophils # (A) 0.13 X 10*3/uL (0.04-0.35); Eosinophils % (A) 1.7 %; HCT 34.6 % (39.6-50.0); HGB 11.3 g/dL (13.0-17.0); Lymphocytes # (A) 1.78 X 10*3/uL (0.90-5.00); Lymphocytes % (A) 23.4 %; MCH 32.9 pg (27.0-32.0); MCHC 32.7 g/dL (32.0-37.0); MCV 100.9 FL (80.0-97.0); Monocytes # (A) 1.01 X 10*3/uL (0.20-1.00); Monocytes % (A) 13.3 %; NRBC Per 100 WBC 0 X 10*3/uL (0.00-0.01); Neutrophils # (A) 4.62 X 10*3/uL (1.80-7.70); Neutrophils % (A) 60.8 %; Platelet Count 253 X 10*3/uL (140-440); RBC 3.43 X 10*6/uL (4.40-5.60); RDW 12.2 % (11.5-14.5)
[2023-12-06 22:52] LABS: BUN/Creat Ratio 16.17 Ratio (12.00-20.00); Blood Urea Nitrogen 9.7 mg/dL (9.0-27.0); Chloride 100 mmol/L (96-109); Glucose 100 mg/dL (70-110); Magnesium 0.9 mg/dL (1.5-2.4); Sodium 139 mmol/L (135-145)
[2023-12-06 22:53] LABS: Calcium 9.4 mg/dL (8.7-10.3); Carbon Dioxide 26.2 mmol/L (21.6-31.8)
== END | disposition home or self-care (01) ==
LOC: LABWHC1 12:08
PROVIDERS: ATTEND Nurse Practitioner Family
DX: K85.00 Idiopathic acute pancreatitis without necrosis or infection (principal); E83.42 Hypomagnesemia
CPT/HCPCS: 36415; 80048; 83735; 85025

== ENCOUNTER 2023-12-13 09:38 | Emergency (ER) | payer BC ==
[2023-12-13 09:48] VITALS: BP 147/94; PULSE 74; RESP 20; TEMP 98
[2023-12-13] MEDS: SODIUM CHLORIDE 0.9% 1,000 ML IV STA (10:35)
[2023-12-13] MEDS: DEXAMETHASONE SOD PHOSPHATE 10 MG/ML 1 ML VIAL IVP STA (10:35)
--- NOTE | 2023-12-13 11:20 | XR ---
EXAMINATION TYPE: XR chest 2V DATE OF EXAM: 12/13/2023 11:11 AM CLINICAL INDICATION:Male, 48 years old with history of cough; [facility] COMPARISON: Chest radiographs from 11/29/2023 TECHNIQUE: XR chest 2V Frontal and lateral views of the chest. FINDINGS: Lungs/Pleura: There is no evidence of pleural effusion, focal consolidation, or pneumothorax. Pulmonary vascularity: Unremarkable. Heart/mediastinum: Cardiomediastinal silhouette is unremarkable. Musculoskeletal: No acute osseous pathology. There is fixation hardware in the lower cervical spine. IMPRESSION: No acute cardiopulmonary disease/process.
--- NOTE | 2023-12-13 12:07 | ED ---
General Adult HPI - General Chief complaint: Upper Respiratory Infection Stated complaint: cough,fever Time Seen by Provider: 12/13/23 10:10 Source: patient, RN notes reviewed, old records reviewed Mode of arrival: ambulatory Limitations: no limitations - History of Present Illness Initial comments: Patient is a 48-year-old male who presents emergency department complaining of cough, congestion, sore throat. Began yesterday. Recently returned from a trip from [place]. Is due to have an EGD done today. Has a history of hypertension, seizure disorder, liver disease. Denies any other acute complaints at this time. Presents for evaluation. He has been n.p.o. and is concerned he may be mildly dehydrated and is asking for IV fluids in addition to viral testing. No fevers. No known sick contacts. - Related Data Home Medications Medication Instructions Recorded Confirmed Folic Acid 1 mg PO DAILY 05/18/17 11/30/23 hydrOXYzine HCL 25 mg PO Q6H PRN 10/07/21 11/30/23 Cetirizine HCl [Zyrtec] 10 mg PO DAILY 11/18/23 11/30/23 Dicyclomine [Bentyl] 20 mg PO QID PRN 11/18/23 11/30/23 Pyridoxine HCl (Vitamin B6) 100 mg PO DAILY 11/18/23 11/30/23 [Vitamin B-6] Sertraline [Zoloft] 25 mg PO DAILY 11/18/23 11/30/23 traZODone HCL [Desyrel] 50 mg PO HS 11/18/23 11/30/23 Previous Rx's Medication Instructions Recorded Ibuprofen [Motrin] 400 mg PO Q6HR PRN #20 tab 11/02/23 Thiamine [Vitamin B-1] 100 mg PO DAILY #30 tab 11/21/23 Magnesium Oxide [Mag-Ox] 400 mg PO TID 10 Days #30 tab 12/03/23 Omeprazole [PriLOSEC] 40 mg PO DAILY #30 cap 12/03/23 Ondansetron [Zofran] 8 mg PO Q8H PRN #15 tab 12/03/23 Allergies Allergy/AdvReac Type Severity Reaction Status Date / Time bupropion [From Wellbutrin] Allergy Unknown Verified 12/13/23 09:42 Penicillins Allergy Rash/Hives Verified 05/06/24 09:42 Review of Systems ROS Statement: Those systems with pertinent positive or pertinent negative responses have been documented in the HPI. Review of Systems: CONST: Denies fever EYES: Denies blurry vision ENT: Endorses cough, congestion C/V: Denies Chest pain RESP: Denies shortness of breath GI: Denies abdominal pain : Denies dysuria SKIN: Denies rash. MSK: Denies joint pain. NEURO: Denies headache ROS Other: All systems not noted in ROS Statement are negative. Past Medical History Past Medical History: Hypertension, Liver Disease, Osteoarthritis (OA), Seizure Disorder Additional Past Medical History / Comment(s): States had Covid, was hospitalized then developed gastritis and sepsis, discharged 12/03/23, states still not feeling feel, tired, has diarrhea, occasional nausea, only tolerating liquids. Hx stomach ulcers and esophageal varices. Hx pancreatitis, anemia, last seizure(2019), Hepatitis A diagnosed in [place], right shoulder torn rotator cuff. History of Any Multi-Drug Resistant Organisms: None Reported Past Surgical History: Back Surgery, Cholecystectomy, Ear Surgery, Orthopedic Surgery Additional Past Surgical History / Comment(s): EGD, colonoscopy, bilateral myringotomies/tubes, C4-C6 cervical fusion(October 2020), left foot surgery X3. Past Anesthesia/Blood Transfusion Reactions: No Reported Reaction, Motion Sickn ess Past Psychological History: Anxiety, Depression, PTSD Smoking Status: Former smoker Past Alcohol Use History: Abuse, Daily, Heavy Past Drug Use History: Cocaine - Past Family History Mother Family Medical History: Thyroid Disorder Additional Family Medical History / Comment(s): Hip replacement. Father Additional Family Medical History / Comment(s): ETOH. General Exam - General Exam Comments Initial Comments: General: Appears in no acute distress. HEAD: Normal with no signs of head trauma. EYES: EOMI ENT: Hearing grossly intact. Normal posterior oropharynx.no No sinus tenderness to palpation. RESPIRATORY: Clear breath sounds bilaterally. No wheezes, rales, or rhonchi. C/V: Regular rate and rhythm. S1 and S2 auscultated, ABD: Abd is soft, nontender, nondistended EXT:no obvious deformity SKIN: No rashes or lesions observed on exposed skin. NEURO: Alert and oriented x 4. Limitations: no limitations Course Vital Signs 12/13/23 09:40 Temperature 98 F Pulse Rate 74 Respiratory 20 Rate Blood Pressure 147/94 O2 Sat by Pulse 96 Oximetry Medical Decision Making - Medical Decision Making Was pt. sent in by a medical professional or institution (SUNG Salvador, NON LICENSED OPERATOR, urgent care, hospital, or jail...) When possible be specific @ -No Did you speak to anyone other than the patient for history (EMS, parent, family, police, friend...)? What history was obtained from this source @ -No Did you review nursing and triage notes (agree or disagree)? Why? @ -I reviewed and agree with nursing and triage notes Were old charts reviewed (outside hosp., previous admission, EMS record, old EKG, old radiological studies, urgent care reports/EKG's, jail records)? Report findings @ -Old charts reviewed Differential Diagnosis (chest pain, altered mental status, abdominal pain women, abdominal pain men, vaginal bleeding, weakness, fever, dyspnea, syncope, headache, dizziness, GI bleed, back pain, seizure, CVA, palpatations, mental health, musculoskeletal)? @ -Strep, COVID, flu, RSV, pneumonia. This list is not all inclusive EKG interpreted by me (3pts min.). @ -None done X-rays interpreted by me (1pt min.). @ -Chest x-ray reveals no evidence of acute cardiopulmonary process. CT interpreted by me (1pt min.). @ -None done U/S interpreted by me (1pt. min.). @ -None done What testing was considered but not performed or refused? (CT, X-rays, U/S, labs)? Why? @ -None What meds were considered but not given or refused? Why? @ -None Did you discuss the management of the patient with other professionals (pr ofessionals i.e. SUNG Salvador, NON LICENSED OPERATOR, lab, RT, psych nurse, social service director, pole maker, teacher, railway patrol officer, bilingual case manager)? Give summary @ -No Was smoking cessation discussed for >3mins.? @ -No Was critical care preformed (if so, how long)? @ -No Were there social determinants of health that impacted care today? How? (Homelessness, low income, unemployed, alcoholism, drug addiction, transportation, low edu. Level, literacy, decrease access to med. care, long term, rehab)? @ -No Was there de-escalation of care discussed even if they declined (Discuss DNR or withdrawal of care, Hospice)? DNR status @ -No What co-morbidities impacted this encounter? (DM, HTN, Smoking, COPD, CAD, Cancer, CVA, ARF, Chemo, Hep., AIDS, mental health diagnosis, sleep apnea, morbid obesity)? @ -None Was patient admitted / discharged? Hospital course, mention meds given and route, prescriptions, significant lab abnormalities, going to OR and other pertinent info. @ -Patient presents for upper respiratory symptoms. Recent travel. Concern for infection. Is due to have an EGD later. At his request he will receive a dose of IV fluids as well as a dose of IV steroids for the congestion. Viral swabs, strep swab, chest x-ray will be obtained. Viral swabs within acceptable limits. He was in agreement this plan. Chest x-ray showed no evidence of acute cardiopulmonary process. Swabs are all negative as well. I did update the patient. They can fit him in for an EGD if he goes over there now, and therefore patient will be discharged home. Diagnosis is viral syndrome. He was in agreement this plan. I instructed the patient to follow up with their PCP in the next 1-3 days. I explained that the patient should return to the emergency department if they experience any worsening symptoms. Strict return precautions were discussed with the patient. The patient expressed understanding of these instructions. I answered all questions that the patient had. The patient was discharged home in good condition with their prescriptions and follow up information. Undiagnosed new problem with uncertain prognosis? @ -No Drug Therapy requiring intensive monitoring for toxicity (Heparin, Nitro, Insulin, Cardizem)? @ -No Were any procedures done? @ -No Diagnosis/symptom? @ -Viral syndrome Acute, or Chronic, or Acute on Chronic? @ -Acute Uncomplicated (without systemic symptoms) or Complicated (systemic symptoms)? @ -Uncomplicated Side effects of treatment? @ -No Exacerbation, Progression, or Severe Exacerbation? @ -No Poses a threat to life or bodily function? How? (Chest pain, [place], [place], pneumonia, PE, COPD, DKA, ARF, appy, cholecystitis, CVA, Diverticulitis, Homicidal, Suicidal, threat to staff... and all critical care pts) @ -No - Lab Data Lab Results 12/13/23 12/13/23 Range/Units 10:38 10:38 Influenza Type A (PCR) Not Detected (Not Detectd) Influenza Type B (PCR) Not Detected (Not Detectd) RSV (PCR) Not Detected (Not Detectd) SARS-CoV-2 (PCR) Not Detected (Not Detectd) Group A Strep (PCR) NOT DETECTED (Not Detectd) Disposition Clinical Impression: Viral syndrome Disposition: HOME SELF-CARE Condition: Good Instructions (If sedation given, give patient instructions): Upper Respiratory Infection (ED) Is patient prescribed a controlled substance at d/c from ED?: No Referrals: Cristóbal Miller MD [Primary Care Provider] - 1-2 days Time of Disposition: 12:06
== END 2023-12-13 12:13 | disposition home or self-care (01) ==
LOC: EC 09:38
DX: B34.9 Viral infection, unspecified (principal); Z87.891 Personal history of nicotine dependence; Z86.16 Personal history of COVID-19; Z88.0 Allergy status to penicillin; Z88.8 Allergy status to other drugs, medicaments and biological substances; Z90.49 Acquired absence of other specified parts of digestive tract
CPT/HCPCS: 87651; 87636; 71046; 99283; 96374; 96361 ×2; J1100

== ENCOUNTER → 2023-12-13 | Day surgery (SDC) | payer BC ==
[2023-12-10 09:42] VITALS: BMI 24.4
[~2023-12-13] MED LIST changes: -LIDOCAINE 1% (10MG/ML) FOR IV START INTRADERMA PRN
== END ==
LOC: ORWHC2ENDO 12:20
PROVIDERS: ATTEND Surgery
DX: R10.13 Epigastric pain (principal)

== ENCOUNTER 2023-12-23 06:58 | Day surgery (SDC) | payer BC ==
[2023-12-21 16:39] VITALS: BMI 24.0
[~2023-12-23 06:58] MED LIST changes: -LACTATED RINGERS 1,000 ML IV SCH; +LIDOCAINE 1% (10MG/ML) FOR IV START INTRADERMA PRN
[2023-12-23] MEDS: LACTATED RINGERS 1,000 ML IV SCH (07:23)
[2023-12-23 07:28] VITALS: TEMP 96.9
[2023-12-23] MEDS ORDERED: ONDANSETRON 4 MG/2 ML VIAL ONE (07:46)
[2023-12-23] MEDS: ONDANSETRON 4 MG/2 ML VIAL IVP ONE (07:48)
[2023-12-23] MEDS ORDERED: PROPOFOL 10 MG/ML 20 ML VIAL IV ONE (08:09)
--- NOTE | 2023-12-23 08:22 | P.OP ---
Date of Procedure: 12/23/23 Preoperative Diagnosis: cGERD Postoperative Diagnosis: antral gastritis Hiatal hernia Esophagitis Procedure(s) Performed: EGD Anesthesia: MAC Surgeon: Cristóbal Miller Pathology: other (antrum, esophagus) Condition: stable Disposition: PACU Description of Procedure: the patient's placed on the endoscopy table lateral position. He received IV sedation. The gastro-/oropharynx passed in the esophagus and stomach. Scope was placed through the pylorus. The first and second portion of the duodenum appeared normal. Scope was then brought back the antrum this. Mildly inflamed. A biopsies performed. The scope was then retroflexed and the remainder of the stomach appeared normal. The junction was at 38 cm. There was a small to moderate size hiatal hernia. The distal esophagus appeared inflamed. This was biopsied. The proximal esophagus appeared normal. Scope withdrawn for patient.
[2023-12-23 09:17] VITALS: BP 127/91; PULSE 108; RESP 16
== END 2023-12-23 09:03 | disposition home or self-care (01) ==
LOC: ORWHC2ENDO 06:58
PROVIDERS: ATTEND Surgery
DX: K29.50 Unspecified chronic gastritis without bleeding (principal); K44.9 Diaphragmatic hernia without obstruction or gangrene; K21.00 Gastro-esophageal reflux disease with esophagitis, without bleeding; I10 Essential (primary) hypertension; G40.909 Epilepsy, unspecified, not intractable, without status epilepticus; F41.9 Anxiety disorder, unspecified; F32.A Depression, unspecified; F43.10 Post-traumatic stress disorder, unspecified; L98.499 Non-pressure chronic ulcer of skin of other sites with unspecified severity; F10.90 Alcohol use, unspecified, uncomplicated; F17.210 Nicotine dependence, cigarettes, uncomplicated; Z90.49 Acquired absence of other specified parts of digestive tract; Z98.890 Other specified postprocedural states; Z79.899 Other long term (current) drug therapy; Z88.0 Allergy status to penicillin; Z88.8 Allergy status to other drugs, medicaments and biological substances
CPT/HCPCS: 88305; 43239; J2405; J2704

== ENCOUNTER → 2024-05-05 | Outpatient (CLI) | payer OTHER ==
--- NOTE | 2024-05-05 15:14 | XR ---
EXAMINATION TYPE: XR lumbosacral spine min 4V DATE OF EXAM: 05/05/2024 COMPARISON: 11/09/2018 HISTORY: Pain lumbar spine TECHNIQUE: 5 view lumbar spine FINDINGS: There is side bending towards the right within the lower thoracic region. There are 5 lumbar-type vertebral bodies. Pedicles are intact. Facet degenerative changes present L5- S1. No spondylolytic defects are evident. Vertebral body heights are preserved. Disc heights are pres erved. Minimal spondylosis is present. IMPRESSION: 1. Some sidebending towards right which could related to patient positioning or muscle spasm. 2. No acute osseous abnormality radiographically apparent. [facility], , 05/05/2024 3:11 PM
--- NOTE | 2024-05-07 23:12 | XR ---
EXAMINATION TYPE: XR Hip Bilateral and AP pelvis DATE OF EXAM: 05/05/2024 COMPARISON: None HISTORY: Pain in the TECHNIQUE: Two-view bilateral hips supplemented with AP pelvis FINDINGS: Femoral heads articulate with the acetabulum. Symphysis pubis and sacroiliac joints are nor mal. Some minimal radial opaque debris is within the colon. Joint spaces are preserved. No acute fracture or dislocation evident. IMPRESSION: 1. No acute osseous abnormalities bilateral hips [facility], , 05/07/2024 11:10 PM
== END | disposition home or self-care (01) ==
LOC: RADXRMAIN 12:21
PROVIDERS: ATTEND Family Medicine
DX: M25.551 Pain in right hip (principal); M25.552 Pain in left hip; M54.40 Lumbago with sciatica, unspecified side
CPT/HCPCS: 72110; 73521

== ENCOUNTER 2024-05-11 20:18 | Emergency (ER) | payer OTHER ==
[2024-05-11 20:23] VITALS: TEMP 98.3
[2024-05-11] MEDS: ONDANSETRON 4 MG/2 ML VIAL IVP STA ×2 (21:05→22:18)
[2024-05-11] MEDS: SODIUM CHLORIDE 0.9% 1,000 ML IV STA (21:05)
--- NOTE | 2024-05-11 21:10 | ED ---
Nausea/Vomiting/Diarrhea HPI - General Chief complaint: Upper Respiratory Infection Stated complaint: congestion Time Seen by Provider: 05/11/24 20:26 Source: patient, RN notes reviewed Mode of arrival: ambulatory Limitations: no limitations - History of Present Illness Initial comments: This is a 48-year-old male who presents to the emergency department for nausea, vomiting, coughing, and congestion. States that it started a couple of days ago. He is concerned that he is not been able to keep anything down. He has generalized abdominal discomfort from all of the vomiting. Reports diarrhea as well. He does have possible sick contacts. Denies any chest pain or shortness of breath. MD complaint: nausea, vomiting, diarrhea - Related Data Home Medications Medication Instructions Recorded Confirmed Folic Acid 1 mg PO DAILY 05/18/17 12/23/23 hydrOXYzine HCL 25 mg PO Q6H PRN 10/07/21 12/23/23 Cetirizine HCl [Zyrtec] 10 mg PO DAILY 11/18/23 12/23/23 Dicyclomine [Bentyl] 20 mg PO TID PRN 11/18/23 12/23/23 Sertraline [Zoloft] 25 mg PO DAILY 11/18/23 12/23/23 traZODone HCL [Desyrel] 50 mg PO HS 11/18/23 12/23/23 Famotidine [Pepcid] 20 mg PO BID 12/21/23 12/23/23 Meloxicam [Mobic] 15 mg PO BID-W/MEALS 12/21/23 12/23/23 Naltrexone HCl 50 mg PO DAILY 12/21/23 12/23/23 Ondansetron [Zofran] 4 mg PO Q6H PRN 12/21/23 12/23/23 Pantoprazole Sodium [Protonix] 40 mg PO DAILY 12/21/23 12/23/23 Previous Rx's Medication Instructions Recorded Thiamine [Vitamin B-1] 100 mg PO DAILY #30 tab 11/21/23 Magnesium Oxide [Mag-Ox] 400 mg PO TID 10 Days #30 tab 12/03/23 Ondansetron Odt [Zofran Odt] 4 mg PO Q8HR PRN #20 tab 05/11/24 Allergies Allergy/AdvReac Type Severity Reaction Status Date / Time bupropion [From Wellbutrin] Allergy seizure Verified 05/11/24 20:23 Penicillins Allergy Rash/Hives Verified 05/11/24 20:23 Review of Systems ROS Statement: Those systems with pertinent positive or pertinent negative responses have been documented in the HPI. ROS Other: All systems not noted in ROS Statement are negative. Past Medical History Past Medical History: Hypertension, Liver Disease, Osteoarthritis (OA), Seizure Disorder Additional Past Medical History / Comment(s): States had Covid, was hospitalized then developed gastritis and sepsis 11/2023, Hx stomach ulcers and esophageal varices, Hx pancreatitis, anemia, last seizure(2019), Hepatitis A diagnosed in [place] History of Any Multi-Drug Resistant Organisms: None Reported Past Surgical History: Back Surgery, Cholecystectomy, Ear Surgery, Orthopedic Surgery Additional Past Surgical History / Comment(s): EGD, colonoscopy, bilateral myringotomies/tubes, C4-C6 cervical fusion(October 2020), left foot surgery X3 Past Anesthesia/Blood Transfusion Reactions: No Reported Reaction, Motion Sickness Past Psychological History: Anxiety, Depression, PTSD Smoking Status: Former smoker Past Alcohol Use History: None Reported Past Drug Use History: None Reported - Past Family History Mother Family Medical History: Thyroid Disorder Father Additional Family Medical History / Comment(s): ETOH. General Exam Limitations: no limitations General appearance: alert, in no apparent distress Head exam: Present: atraumatic, normocephalic, normal inspection Respiratory exam: Present: normal lung sounds bilaterally. Absent: respiratory distress, wheezes, rales, rhonchi, stridor Cardiovascular Exam: Present: regular rate, normal rhythm, normal heart sounds. Absent: systolic murmur, diastolic murmur, rubs, gallop, clicks GI/Abdominal exam: Present: soft, normal bowel sounds. Absent: distended, tenderness, guarding, rebound, rigid Neurological exam: Present: alert, oriented X3, CN II-XII intact Psychiatric exam: Present: normal affect, normal mood Skin exam: Present: warm, dry, intact, normal color. Absent: rash Course Vital Signs 05/11/24 20:21 Temperature 98.3 F Pulse Rate 107 H Respiratory 20 Rate Blood Pressure 147/98 O2 Sat by Pulse 100 Oximetry Medical Decision Making - Medical Decision Making This is a 48 year old male who presents to the emergency department for nausea, vomiting, and URI symptoms. Was pt. sent in by a medical professional or institution? @ -No Did you speak to anyone other than the patient for history? @ -No Did you review nursing and triage notes? @ -Yes, and I agree, it is accurate with regards to the patient's symptoms. Were old charts reviewed? @ -No Differential Diagnosis? @ -Differential Nausea and Vomiting: Gastroenteritis, cholecystitis, appendicitis, pancreatitis, migraine, benign positional vertigo, food borne illness, pyelonephritis, irritable bowel syndrome, influenza, Covid, GERD, incarcerated hernia, intestinal obstruction, this is not meant to be an all-inclusive list. EKG interpreted by me (3pts min.)? @ -Not obtained X-rays interpreted by me (1pt min.)? @ -Chest x-ray obtained, my interpretation identifies no localized consolidations or infiltrates. CT interpreted by me (1pt min.)? @ -Not obtained U/S interpreted by me (1pt. min.)? @ -Not obtained What testing was considered but not performed? (CT, X-rays, U/S, labs)? Why? @ -None What meds were considered but not given? Why? @ -None Did you discuss the management of the patient with other professionals? @ -No Did you reconcile home meds? @ -No Was smoking cessation discussed for >3mins.? @ -I discussed smoking cessation for greater than 3 minutes. The risk of smoking were discussed with the patient including but not limited to risks of cancer, stroke, coronary artery disease and COPD. Also discussed with patient were multiple methods of quitting smoking. Lastly we discussed the financial cost of smoking. Was critical care preformed (if so, how long)? @ -No Were there social determinants of health that impacted care today? How? (Homelessness, low income, unemployed, alcoholism, drug addiction, transportation, low edu. Level, literacy, decrease access to med. care, residential, rehab)? @ -No Was there de-escalation of care discussed even if they declined? (Discuss DNR or withdrawal of care, Hospice)? @ -No What co-morbidities impacted this encounter? (DM, HTN, Smoking, COPD, CAD, Cancer, CVA, Hep., AIDS, mental health diagnosis, sleep apnea, morbid obesity)? @ -Smoking Was patient admitted / discharged? @ -Discharged. Lab work demonstrates mild hypomagnesemia with a magnesium of 1.2. Lab work was otherwise unremarkable. COVID, influenza, and RSV testing negative. Chest x-ray reveals no acute process. Symptoms well-controlled in the emergency department. He was given 2 tablets of magnesium oxide, 400 mg. He was tolerating oral intake and was discharged home in stable condition. Prescription for Zofran provided. Advised he slowly advance his diet as tolerated and remain well hydrated. Case discussed with ED attending Dr. Nogueira. Return precautions reviewed in depth, the patient is instructed to return to the emergency department with any new, worsening, or concerning symptoms. Patient verbalized understanding. Undiagnosed new problem with uncertain prognosis? @ -None Drug Therapy requiring intensive monitoring for toxicity (Heparin, Nitro, Insulin, Cardizem)? @ -None Were any procedures done? @ -None Diagnosis/symptom? @ -Nausea and vomiting, viral URI Acute, or Chronic, or Acute on Chronic? @ -Acute Uncomplicated (without systemic symptoms) or Complicated (systemic symptoms)? @ -Uncomplicated Side effects of treatment? @ -None Exacerbation, Progression, or Severe Exacerbation] @ -Not applicable Poses a threat to life or bodily function? @ -No - Lab Data Result diagrams: 05/11/24 20:59 05/11/24 20:59 Lab Results 05/11/24 05/11/24 05/11/24 Range/Units 20:59 20:59 20:59 WBC 5.6 (3.8-10.6) k/uL RBC 4.38 (4.30-5.90) m/uL Hgb 13.6 (13.0-17.5) gm/dL Hct 40.7 (39.0-53.0) % MCV 92.9 (80.0-100.0) fL MCH 31.1 (25.0-35.0) pg MCHC 33.5 (31.0-37.0) g/dL RDW 13.6 (11.5-15.5) % Plt Count 239 (150-450) k/uL MPV 7.6 Neutrophils % 48 % Lymphocytes % 43 % Monocytes % 6 % Eosinophils % 0 % Basophils % 1 % Neutrophils # 2.7 (1.3-7.7) k/uL Lymphocytes # 2.4 (1.0-4.8) k/uL Monocytes # 0.3 (0-1.0) k/uL Eosinophils # 0.0 (0-0.7) k/uL Basophils # 0.0 (0-0.2) k/uL Sodium 142 (137-145) mmol/L Potassium 3.6 (3.5-5.1) mmol/L Chloride 102 (98-107) mmol/L Carbon Dioxide 22 (22-30) mmol/L Anion Gap 18 mmol/L BUN 14 (9-20) mg/dL Creatinine 0.66 (0.66-1.25) mg/dL Est GFR (CKD-EPI)AfAm >90 (>60 ml/min/1.73 sqM) Est GFR (CKD-EPI)NonAf >90 (>60 ml/min/1.73 sqM) Glucose 106 H (74-99) mg/dL Calcium 9.3 (8.4-10.2) mg/dL Magnesium 1.2 L (1.6-2.3) mg/dL Total Bilirubin 0.6 (0.2-1.3) mg/dL AST 46 (17-59) U/L ALT 23 (4-49) U/L Alkaline Phosphatase 64 (38-126) U/L Total Protein 7.6 (6.3-8.2) g/dL Albumin 4.8 (3.5-5.0) g/dL Amylase 47 (30-110) U/L Lipase 76 (23-300) U/L Influenza Type A (PCR) Not Detected (Not Detectd) Influenza Type B (PCR) Not Detected (Not Detectd) RSV (PCR) Not Detected (Not Detectd) SARS-CoV-2 (PCR) Not Detected (Not Detectd) - Radiology Data Radiology results: report reviewed, image reviewed Disposition Clinical Impression: Upper respiratory tract infection, Nausea and vomiting Disposition: HOME SELF-CARE Instructions (If sedation given, give patient instructions): Upper Respiratory Infection (ED), Acute Nausea and Vomiting (ED) Additional Instructions: Return to the emergency department with any new, worsening, or concerning symptoms. Take the Zofran up to every 8 hours as needed for nausea and vomiting. Make sure you get plenty of rest and remain well-hydrated. Slowly advance your diet as tolerated. Follow up with your primary care provider in 1- 2 days. Prescriptions: Ondansetron Odt [Zofran Odt] 4 mg PO Q8HR PRN #20 tab PRN Reason: Nausea And Vomiting Is patient prescribed a controlled substance at d/c from ED?: No Referrals: Lonny Bravo [Primary Care Provider] - 1-2 days Time of Disposition: 22:51
[2024-05-11 21:12] LABS: Basophils % (A) 1 %; Eosinophils % (A) 0 %; HCT 40.7 % (39.0-53.0); HGB 13.6 gm/dL (13.0-17.5); Lymphocytes # (A) 2.4 k/uL (1.0-4.8); Lymphocytes % (A) 43 %; MCH 31.1 pg (25.0-35.0); MCHC 33.5 g/dL (31.0-37.0); MCV 92.9 fL (80.0-100.0); Mean Platelet Volume 7.6; Monocytes # (A) 0.3 k/uL (0-1.0); Monocytes % (A) 6 %; Neutrophils # (A) 2.7 k/uL (1.3-7.7); Neutrophils % (A) 48 %; Platelet Count 239 k/uL (150-450); RBC 4.38 m/uL (4.30-5.90); RDW 13.6 % (11.5-15.5); WBC 5.6 k/uL (3.8-10.6)
[2024-05-11 21:29] LABS: ALT 23 U/L (4-49); AST 46 U/L (17-59); African American GFR (CKD) >90 (>60 ml/min/1.73 sqM); Albumin 4.8 g/dL (3.5-5.0); Alkaline Phosphatase 64 U/L (38-126); Amylase 47 U/L (30-110); Anion Gap 18 mmol/L; Blood Urea Nitrogen 14 mg/dL (9-20); Calcium 9.3 mg/dL (8.4-10.2); Carbon Dioxide 22 mmol/L (22-30); Chloride 102 mmol/L (98-107); Glucose 106 mg/dL (74-99); Lipase 76 U/L (23-300); Magnesium 1.2 mg/dL (1.6-2.3); Non-African American GFR(CKD) >90 (>60 ml/min/1.73 sqM); Potassium 3.6 mmol/L (3.5-5.1); Sodium 142 mmol/L (137-145); Total Bilirubin 0.6 mg/dL (0.2-1.3); Total Protein 7.6 g/dL (6.3-8.2)
--- NOTE | 2024-05-11 21:39 | XR ---
EXAMINATION TYPE: XR chest 2V DATE OF EXAM: 05/11/2024 COMPARISON: 12/13/2023 HISTORY: Cough TECHNIQUE: Frontal and lateral views of the chest are obtained. FINDINGS: There is no focal air space opacity, pleural effusion, or pneumothorax seen. The cardiac silhouette size is within normal limits. The osseous structures are intact. IMPRESSION: No acute cardiopulmonary process. [facility] Fuller, Workstation: [id number] 05/11/2024 9:36 PM
[2024-05-11] MEDS: MAGNESIUM OXIDE 400 MG TAB PO STA ×2 (21:47)
[2024-05-11] MEDS: MORPHINE SULFATE 4 MG/ML SYRINGE IVP STA (22:17)
[2024-05-11] MEDS: KETOROLAC 15 MG/ML 1 ML VIAL IVP STA (22:19)
[2024-05-11] MEDS: PANTOPRAZOLE 40 MG/10 ML VIAL IVP STA (22:20)
[2024-05-11] MEDS: DIPHENOX-ATROP STARTER PACK 8 TAB BTL PO STA (22:54)
[2024-05-11] MEDS: ONDANSETRON 4 MG ODT STARTER PACK 2 TAB BTL PO STA (22:54)
[2024-05-11 23:24] VITALS: BP 138/86; PULSE 99; RESP 18
== END 2024-05-11 23:30 | disposition home or self-care (01) ==
LOC: EC 20:18
CPT/HCPCS: 36415; 71046; 80053; 82150; 83690; 83735; 85025; 87636; 96361; 96374; 96375; 96376; 99283; 99406

== ENCOUNTER 2024-07-18 16:12 | Observation (INO) | payer MEDICARE, OTHER ==
--- NOTE | 2024-07-18 16:38 | ED ---
GI Bleed HPI - General Source: patient, RN notes reviewed Mode of arrival: ambulatory Limitations: no limitations - History of Present Illness MD complaint: melena Onset/Timin -: days(s) Severity scale (1-10): 7 Consistency: constant <Balaji Russell - Last Filed: 07/18/24 16:35> - General Source: patient, RN notes reviewed, old records reviewed Mode of arrival: ambulatory Limitations: no limitations - History of Present Illness Radiation: none Quality: painless Consistency: constant Improves with: none Worsens with: none Context: history of GI bleed, liver disease Associated Symptoms: nausea, vomiting <Gaetano Nogueira - Last Filed: 07/24/24 15:47> - General Chief complaint: GI Bleed Stated complaint: abd pain, black stool Time Seen by Provider: 07/18/24 16:28 - History of Present Illness Initial comments: Quick note: This is a 48-year-old male with dark stool x 7 days. Patient endorses associated constant abdominal pain (7/10), lightheadedness and shortness of breath. Patient states he was recently hospitalized at [facility] for 3 days due to dark stool and hematemesis. Patient states hematemesis has resolved but melena persists. Endorses anorexia and decreased fluid intake. (Balaji Russell) 48 male with symptoms of upper GI bleed recent diagnosis of ulcer and dark stools (Gaetano Nogueira) - Related Data Home Medications Medication Instructions Recorded Confirmed Folic Acid 1 mg PO DAILY 05/18/17 07/19/24 hydrOXYzine HCL 25 mg PO DAILY 10/07/21 07/19/24 Cetirizine HCl [Zyrtec] 10 mg PO DAILY 11/18/23 07/19/24 traZODone HCL [Desyrel] 50 mg PO HS 11/18/23 07/19/24 ARIPiprazole [Abilify] 5 mg PO DAILY 07/19/24 07/19/24 Ascorbic Acid [Vitamin C] 1,000 mg PO DAILY 07/19/24 07/19/24 Baclofen 5 mg PO TID 07/19/24 07/19/24 Cholecalciferol (Vitamin D3) 1,250 mcg PO MO 07/19/24 07/19/24 [Vitamin D3 (1250 Mcg = 50,000 Iu)] Docusate [Colace] 100 mg PO DAILY 07/19/24 07/19/24 Gabapentin [Neurontin] 300 mg PO Q8H 07/19/24 07/19/24 Magnesium Oxide [Mag-Ox] 1,200 mg PO BID 07/19/24 07/19/24 Metoprolol Succinate (ER) [Toprol 50 mg PO DAILY 07/19/24 07/19/24 XL] Multivitamins, Thera [Multivitamin 1 tab PO DAILY 07/19/24 07/19/24 (formulary)] Ondansetron Odt [Zofran ODT] 4 mg PO BID PRN 07/19/24 07/19/24 Sertraline [Zoloft] 50 mg PO HS 07/19/24 07/19/24 Previous Rx's Medication Instructions Recorded Thiamine [Vitamin B-1] 100 mg PO DAILY #30 tab 11/21/23 Omeprazole 40 mg PO BID #60 cap 07/20/24 Allergies Allergy/AdvReac Type Severity Reaction Status Date / Time bupropion [From Wellbutrin] Allergy seizure Verified 07/19/24 10:34 Penicillins Allergy Rash/Hives Verified 07/19/24 10:34 Review of Systems ROS Other: All systems not noted in ROS Statement are negative. <Balaji Russell - Last Filed: 07/18/24 16:35> ROS Other: All systems not noted in ROS Statement are negative. <Gaetano Nogueira - Last Filed: 07/24/24 15:47> ROS Statement: Those systems with pertinent positive or pertinent negative responses have been documented in the HPI. Past Medical History Past Medical History: Hypertension, Liver Disease, Osteoarthritis (OA), Seizure Disorder Additional Past Medical History / Comment(s): States had Covid, was hospitalized then developed gastritis and sepsis 11/2023, Hx stomach ulcers and esophageal varices, Hx pancreatitis, anemia, last seizure(2019), Hepatitis A diagnosed in College History of Any Multi-Drug Resistant Organisms: None Reported Past Surgical History: Back Surgery, Cholecystectomy, Ear Surgery, Orthopedic Surgery Additional Past Surgical History / Comment(s): EGD, colonoscopy, bilateral myringotomies/tubes, C4-C6 cervical fusion(October 2020), left foot surgery X3 Past Anesthesia/Blood Transfusion Reactions: No Reported Reaction, Motion Sickness Past Psychological History: Anxiety, Depression, PTSD Smoking Status: Current some day smoker Past Alcohol Use History: Occasional Past Drug Use History: None Reported - Past Family History Mother Family Medical History: Thyroid Disorder Father Additional Family Medical History / Comment(s): ETOH. <Balaji Russell - Last Filed: 07/18/24 16:35> General Exam Limitations: no limitations <YvonneBalaji - Last Filed: 07/18/24 16:35> General appearance: alert, in no apparent distress Head exam: Present: atraumatic, normocephalic, normal inspection Eye exam: Present: normal appearance, PERRL, EOMI. Absent: scleral icterus, conjunctival injection, periorbital swelling ENT exam: Present: normal exam, mucous membranes moist Neck exam: Present: normal inspection. Absent: tenderness, meningismus, lymphadenopathy Respiratory exam: Present: normal lung sounds bilaterally. Absent: respiratory distress, wheezes, rales, rhonchi, stridor Cardiovascular Exam: Present: regular rate, normal rhythm, normal heart sounds. Absent: systolic murmur, diastolic murmur, rubs, gallop, clicks GI/Abdominal exam: Present: soft, normal bowel sounds. Absent: distended, tende rness, guarding, rebound, rigid Extremities exam: Present: normal inspection, full ROM, normal capillary refill. Absent: tenderness, pedal edema, joint swelling, calf tenderness Back exam: Present: normal inspection Neurological exam: Present: alert, oriented X3, CN II-XII intact Psychiatric exam: Present: normal affect, normal mood Skin exam: Present: warm, dry, intact, normal color. Absent: rash <Gaetano Nogueira - Last Filed: 07/24/24 15:47> - General Exam Comments Initial Comments: Visual Physical Exam Vital signs reviewed General: Well-appearing, nontoxic, no acute distress. Head: Normocephalic, atraumatic Eyes: PERRLA, EOMI ENT: Airway patent Chest: Nonlabored breathing Skin: No visual rash, normal skin tone Neuro: Alert and oriented 3 Musculoskeletal: No gross abnormalities (Balaji Russell) Course <Gaetano Nogueira - Last Filed: 07/24/24 15:47> Vital Signs 07/18/24 07/18/24 07/19/24 16:17 21:28 01:54 Temperature 98.5 F Pulse Rate 103 H 65 71 Respiratory 16 16 18 Rate Blood Pressure 111/78 151/102 125/84 O2 Sat by Pulse 98 97 95 Oximetry 07/19/24 07/19/24 07/19/24 06:03 11:38 15:00 Temperature 97.8 F Pulse Rate 66 71 73 Respiratory 19 18 16 Rate Blood Pressure 121/88 123/84 128/98 O2 Sat by Pulse 96 99 98 Oximetry 07/19/24 07/19/24 07/19/24 16:52 18:47 20:25 Temperature 98.4 F 98.2 F Pulse Rate 71 69 86 Respiratory 19 18 18 Rate Blood Pressure 123/90 132/92 136/96 O2 Sat by Pulse 98 98 97 Oximetry - Reevaluation(s) Reevaluation #1: 07/18/24 19:23 Medical records reviewed (Gaetano Nogueira) Reevaluation #2: 07/18/24 19:23 Significant acute vomiting of blood here in the ER (Gaetano Nogueira) Reevaluation #3: 07/18/24 19:23 Patient informed of results and questions answered (Gaetano Nogueira) Reevaluation #4: Was pt. sent in by a medical professional or institution ([facility], [facility], urgent care, hospital, or fpc...) When possible be specific @ -no Did you speak to anyone other than the patient for history (EMS, parent, family, police, friend...)? What history was obtained from this source @ -no Did you review nursing and triage notes (agree or disagree)? Why? @ -agree Are old charts reviewed (outside hosp., previous admission, EMS record, old EKG, old radiological studies, urgent care reports/EKG's, fpc records)? Report findings @ -yes Differential Diagnosis (chest pain, altered mental status, abdominal pain women, abdominal pain men, vaginal bleeding, weakness, fever, dyspnea, syncope, headache, dizziness, GI bleed, back pain, seizure, CVA, palpatations, mental health, musculoskeletal)? @ -prior EKG interpreted by me (3pts min.). @ -yes X-rays interpreted by me (1pt min.). @ -no CT interpreted by me (1pt min.). @ -no U/S interpreted by me (1pt. min.). @ -no What testing was considered but not performed or refused? (CT, X-rays, U/S, labs)? Why? @ -none What meds were considered but not given or refused? Why? @ -none Did you discuss the management of the patient with other professionals (professionals i.e. Dr., PA, QA LEAD, lab, RT, psych nurse, social media marketer, vp integration, teacher, supervisory cbp officer, mental health case manager)? Give summary @ -no Was smoking cessation discussed for >3mins.? @ -no Was critical care preformed (if so, how long)? @ -no Were there social determinants of health that impacted care today? How? (Homelessness, low income, unemployed, alcoholism, drug addiction, transportation, low edu. Level, literacy, decrease access to med. care, alf, rehab)? @ -none Was there de-escalation of care discussed even if they declined (Discuss DNR or withdrawal of care, Hospice)? DNR status @ -no What co-morbidities impacted this encounter? (DM, HTN, Smoking, COPD, CAD, C ancer, CVA, ARF, Chemo, Hep., AIDS, mental health diagnosis, sleep apnea, morbid obesity)? @ -none Was patient admitted / discharged? Hospital course, mention meds given and route, prescriptions, significant lab abnormalities, going to OR and other pertinent info. @ - 48 male to be admitted for upper GI bleed Admitted Undiagnosed new problem with uncertain prognosis? @ -no Drug Therapy requiring intensive monitoring for toxicity (Heparin, Nitro, Insulin, Cardizem)? @ -no Were any procedures done? @ -no Diagnosis/symptom? @ -Upper GI bleed Acute, or Chronic, or Acute on Chronic? @ -Acute Uncomplicated (without systemic symptoms) or Complicated (systemic symptoms)? @ -Complicated Side effects of treatment? @ -no Exacerbation, Progression, or Severe Exacerbation? @ -exacerbation Poses a threat to life or bodily function? How? (Chest pain, USA, MS, pneumonia, PE, COPD, DKA, ARF, appy, cholecystitis, CVA, Diverticulitis, Homicidal, Suicidal, threat to staff... and all critical care pts) @ -yes with history of GI bleed upper GI bleed (Roskopp,Gaetano B) Reevaluation #5: Differential GI Bleed: Esophageal varices, aortoenteric fistula, Colette-Corado, gastritis, peptic ulcer disease, diverticulosis, inflammatory bowel disease, hemorrhoids, fissure, colitis, malignancy, Meckel's diverticulum, this is not meant to be an all- inclusive list. (Gaetano Nogueira) - Consultations Consultation #1: Spoke with [facility] who agrees to admit this patient (Gaetano Nogueira) Medical Decision Making <Balaji Russell - Last Filed: 07/18/24 16:35> - Lab Data Result diagrams: 07/20/24 06:33 07/20/24 06:33 - EKG Data -: EKG Interpreted by Me (EKG is sinus 94 AK 137 QRS 101 QTc 450) <Gaetano Nogueira - Last Filed: 07/24/24 15:47> - Medical Decision Making I completed the quick note portion of this chart signed TOVA Nazario (Balaji Russell) 48 male to be admitted for upper GI bleed (Gaetano Nogueira) - Lab Data Lab Results 07/18/24 07/18/24 07/18/24 Range/Units 14:21 17:51 17:53 WBC 6.1 (3.8-10.6) k/uL RBC 3.26 L (4.30-5.90) m/uL Hgb 10.5 L (13.0-17.5) gm/dL Hct 31.3 L (39.0-53.0) % MCV 95.9 (80.0-100.0) fL MCH 32.1 (25.0-35.0) pg MCHC 33.5 (31.0-37.0) g/dL RDW 14.2 (11.5-15.5) % Plt Count 330 (150-450) k/uL MPV 7.3 Neutrophils % 52 % Lymphocytes % 34 % Monocytes % 9 % Eosinophils % 2 % Basophils % 1 % Neutrophils # 3.2 (1.3-7.7) k/uL Lymphocytes # 2.1 (1.0-4.8) k/uL Monocytes # 0.5 (0-1.0) k/uL Eosinophils # 0.1 (0-0.7) k/uL Basophils # 0.1 (0-0.2) k/uL PT 9.6 L (10.0-12.5) sec INR 0.8 (<1.2) APTT 18.6 L (22.0-30.0) sec Sodium (137-145) mmol/L Potassium (3.5-5.1) mmol/L Chloride (98-107) mmol/L Carbon Dioxide (22-30) mmol/L Anion Gap mmol/L BUN (9-20) mg/dL Creatinine (0.66-1.25) mg/dL Est GFR (CKD-EPI)AfAm (>60 ml/min/1.73 sqM) Est GFR (CKD-EPI)NonAf (>60 ml/min/1.73 sqM) Glucose (74-99) mg/dL Lactic Ac Sepsis Rflx Plasma Lactic Acid Kel (0.7-2.0) mmol/L Calcium (8.4-10.2) mg/dL Total Bilirubin (0.2-1.3) mg/dL AST (17-59) U/L ALT (4-49) U/L Alkaline Phosphatase (38-126) U/L Total Protein (6.3-8.2) g/dL Albumin (3.5-5.0) g/dL Lipase (23-300) U/L Blood Type A Positive Blood Type Confirm Blood Type Recheck No Previous Record Bld Type Recheck Status CABO Indicated Antibody Screen NEGATIVE Spec Expiration Date 07/21/2024 - 235007/18/24 07/18/24 07/18/24 Range/Units 17:53 17:53 18:39 WBC (3.8-10.6) k/uL RBC (4.30-5.90) m/uL Hgb (13.0-17.5) gm/dL Hct (39.0-53.0) % MCV (80.0-100.0) fL MCH (25.0-35.0) pg MCHC (31.0-37.0) g/dL RDW (11.5-15.5) % Plt Count (150-450) k/uL MPV Neutrophils % % Lymphocytes % % Monocytes % % Eosinophils % % Basophils % % Neutrophils # (1.3-7.7) k/uL Lymphocytes # (1.0-4.8) k/uL Monocytes # (0-1.0) k/uL Eosinophils # (0-0.7) k/uL Basophils # (0-0.2) k/uL PT (10.0-12.5) sec INR (<1.2) APTT (22.0-30.0) sec Sodium 138 (137-145) mmol/L Potassium 4.4 (3.5-5.1) mmol/L Chloride 104 (98-107) mmol/L Carbon Dioxide 24 (22-30) mmol/L Anion Gap 10 mmol/L BUN 17 (9-20) mg/dL Creatinine 0.73 (0.66-1.25) mg/dL Est GFR (CKD-EPI)AfAm >90 (>60 ml/min/1.73 sqM) Est GFR (CKD-EPI)NonAf >90 (>60 ml/min/1.73 sqM) Glucose 92 (74-99) mg/dL Lactic Ac Sepsis Rflx Plasma Lactic Acid Kel 2.2 H* (0.7-2.0) mmol/L Calcium 8.8 (8.4-10.2) mg/dL Total Bilirubin 0.4 (0.2-1.3) mg/dL AST 39 (17-59) U/L ALT 22 (4-49) U/L Alkaline Phosphatase 32 L (38-126) U/L Total Protein 6.4 (6.3-8.2) g/dL Albumin 4.0 (3.5-5.0) g/dL Lipase 196 (23-300) U/L Blood Type Blood Type Confirm A Positive Blood Type Recheck Bld Type Recheck Status Antibody Screen Spec Expiration Date 07/18/24 Range/Units 18:41 WBC (3.8-10.6) k/uL RBC (4.30-5.90) m/uL Hgb (13.0-17.5) gm/dL Hct (39.0-53.0) % MCV (80.0-100.0) fL MCH (25.0-35.0) pg MCHC (31.0-37.0) g/dL RDW (11.5-15.5) % Plt Count (150-450) k/uL MPV Neutrophils % % Lymphocytes % % Monocytes % % Eosinophils % % Basophils % % Neutrophils # (1.3-7.7) k/uL Lymphocytes # (1.0-4.8) k/uL Monocytes # (0-1.0) k/uL Eosinophils # (0-0.7) k/uL Basophils # (0-0.2) k/uL PT (10.0-12.5) sec INR (<1.2) APTT (22.0-30.0) sec Sodium (137-145) mmol/L Potassium (3.5-5.1) mmol/L Chloride (98-107) mmol/L Carbon Dioxide (22-30) mmol/L Anion Gap mmol/L BUN (9-20) mg/dL Creatinine (0.66-1.25) mg/dL Est GFR (CKD-EPI)AfAm (>60 ml/min/1.73 sqM) Est GFR (CKD-EPI)NonAf (>60 ml/min/1.73 sqM) Glucose (74-99) mg/dL Lactic Ac Sepsis Rflx Y Plasma Lactic Acid Kel (0.7-2.0) mmol/L Calcium (8.4-10.2) mg/dL Total Bilirubin (0.2-1.3) mg/dL AST (17-59) U/L ALT (4-49) U/L Alkaline Phosphatase (38-126) U/L Total Protein (6.3-8.2) g/dL Albumin (3.5-5.0) g/dL Lipase (23-300) U/L Blood Type Blood Type Confirm Blood Type Recheck Bld Type Recheck Status Antibody Screen Spec Expiration Date Disposition <Balaji Russell - Last Filed: 07/18/24 16:35> Is patient prescribed a controlled substance at d/c from ED?: No Time of Disposition: 19:00 <Gaetano Nogueira - Last Filed: 07/24/24 15:47> Clinical Impression: ETOH abuse, Alcohol use disorder, Anxiety, UGIB (upper gastrointestinal bleed) Disposition: ADMITTED IP TO THIS HOSP Condition: Fair
[2024-07-18 18:03] LABS: Basophils # (A) 0.1 k/uL (0-0.2); Basophils % (A) 1 %; Eosinophils # (A) 0.1 k/uL (0-0.7); Eosinophils % (A) 2 %; HCT 31.3 % (39.0-53.0); HGB 10.5 gm/dL (13.0-17.5); Lymphocytes # (A) 2.1 k/uL (1.0-4.8); Lymphocytes % (A) 34 %; MCH 32.1 pg (25.0-35.0); MCHC 33.5 g/dL (31.0-37.0); MCV 95.9 fL (80.0-100.0); Mean Platelet Volume 7.3; Monocytes # (A) 0.5 k/uL (0-1.0); Monocytes % (A) 9 %; Neutrophils # (A) 3.2 k/uL (1.3-7.7); Neutrophils % (A) 52 %; Platelet Count 330 k/uL (150-450); RBC 3.26 m/uL (4.30-5.90); RDW 14.2 % (11.5-15.5); WBC 6.1 k/uL (3.8-10.6)
[2024-07-18 18:16] LABS: ALT 22 U/L (4-49); African American GFR (CKD) >90 (>60 ml/min/1.73 sqM); Anion Gap 10 mmol/L; Blood Urea Nitrogen 17 mg/dL (9-20); Calcium 8.8 mg/dL (8.4-10.2); Carbon Dioxide 24 mmol/L (22-30); Chloride 104 mmol/L (98-107); Glucose 92 mg/dL (74-99); Lipase 196 U/L (23-300); Non-African American GFR(CKD) >90 (>60 ml/min/1.73 sqM); Sodium 138 mmol/L (137-145); Total Bilirubin 0.4 mg/dL (0.2-1.3)
[2024-07-18 18:39] LABS: AST 39 U/L (17-59); Alkaline Phosphatase 32 U/L (38-126); Potassium 4.4 mmol/L (3.5-5.1); Total Protein 6.4 g/dL (6.3-8.2)
[2024-07-18] MEDS ORDERED: ONDANSETRON 4 MG/2 ML VIAL IVP PRN (19:20)
[2024-07-18] MEDS ORDERED: NALOXONE 0.4 MG/ML 1 ML VIAL IV PRN (19:20)
[2024-07-18] MEDS ORDERED: chlordiazePOXIDE 25 MG CAP PO PRN ×4 (19:24)
[2024-07-18] MEDS ORDERED: LORazepam 1 MG TAB PO PRN ×4 (19:24)
[2024-07-18] MEDS ORDERED: LORazepam 0.5 MG TAB PO PRN (19:24)
[2024-07-18] MEDS ORDERED: LORazepam 2 MG/ML INJ IV PRN ×3 (19:24)
[2024-07-18 19:49] LABS: INR 0.8 (<1.2); Prothrombin Time 9.6 sec (10.0-12.5)
[2024-07-18 19:58] LABS: Partial Thromboplastin Time 18.6 sec (22.0-30.0)
[2024-07-18] MEDS: OCTREOTIDE 100 MCG/ML INJ IVP STA (20:51)
[2024-07-18] MEDS: PANTOPRAZOLE 40 MG/10 ML VIAL IV SCH (21:08)
[2024-07-18] MEDS: SODIUM CHLORIDE 0.9% 1,000 ML IV SCH (21:08)
[2024-07-18] MEDS: MORPHINE SULFATE 4 MG/ML SYRINGE IV PRN (21:23)
[2024-07-19] MEDS: BACLOFEN 10 MG TAB PO STA (00:55)
[2024-07-19] MEDS: traZODone HCL 50 MG TAB PO SCH ×2 (00:56→20:59)
[2024-07-19 07:36] LABS: Basophils % (A) 1 %; Eosinophils # (A) 0.1 k/uL (0-0.7); Eosinophils % (A) 2 %; HCT 30.2 % (39.0-53.0); HGB 9.9 gm/dL (13.0-17.5); Lymphocytes # (A) 2.1 k/uL (1.0-4.8); Lymphocytes % (A) 36 %; MCH 31.9 pg (25.0-35.0); MCHC 32.7 g/dL (31.0-37.0); MCV 97.6 fL (80.0-100.0); Mean Platelet Volume 7.2; Monocytes # (A) 0.5 k/uL (0-1.0); Monocytes % (A) 9 %; Neutrophils # (A) 2.9 k/uL (1.3-7.7); Neutrophils % (A) 50 %; Platelet Count 318 k/uL (150-450); RBC 3.09 m/uL (4.30-5.90); RDW 14.1 % (11.5-15.5); WBC 5.8 k/uL (3.8-10.6)
[2024-07-19] MEDS: SERTRALINE 25 MG TAB PO SCH (08:04)
[2024-07-19 08:07] LABS: ALT 37 U/L (4-49); AST 64 U/L (17-59); African American GFR (CKD) >90 (>60 ml/min/1.73 sqM); Albumin 3.6 g/dL (3.5-5.0); Alkaline Phosphatase 64 U/L (38-126); Anion Gap 4 mmol/L; Blood Urea Nitrogen 19 mg/dL (9-20); Calcium 8.2 mg/dL (8.4-10.2); Carbon Dioxide 30 mmol/L (22-30); Chloride 103 mmol/L (98-107); Glucose 87 mg/dL (74-99); Lipase 100 U/L (23-300); Magnesium 1.2 mg/dL (1.6-2.3); Non-African American GFR(CKD) >90 (>60 ml/min/1.73 sqM); Phosphorus 4.1 mg/dL (2.5-4.5); Sodium 137 mmol/L (137-145); Total Bilirubin 0.3 mg/dL (0.2-1.3); Total Protein 5.7 g/dL (6.3-8.2)
--- NOTE | 2024-07-19 11:41 | P.CONS ---
History of Present Illness - Reason for Consult Consult date: 07/19/24 GI bleed Requesting physician: Gaetano Nogueira - Chief Complaint Abdominal pain - History of Present Illness This a pleasant 48-year-old male with a long history of alcoholism and alcohol abuse who apparently was having coffee-ground emesis about a week ago. He was at [facility] in [place] where he was given antiemetics and PPIs. He states the vomiting had stopped. He had no endoscopy done. He states he was supposed to follow-up however they were not able to get him in and he said they told him to come to the emergency department. States he does have abdominal pain. He has been drinking alcohol for many years. He states that he is still drinking but not as much. He states he has a history of esophageal varices and peptic ulcer disease. He had an upper endoscopy in December [address] Miller with findings of gastritis, hiatal hernia and esophagitis. He reportedly was still having some dark stools. Hemoglobin 9.9 platelet count 318,000, INR 0.8. He denies any regular NSAID use and no anticoagulation. States he has not been taking Mobic since last year December. He does state that he has some abdominal discomfort. No nausea or vomiting. He has had no coffee-ground emesis since he was hospitalized at [facility] over a week ago. He does take omeprazole regularly at home. Review of Systems REVIEW OF SYSTEMS: CARDIOPULMONARY: No chest pain or shortness of breath. Gastrointestinal: Abdominal pain. No nausea or vomiting. No hematemesis, coffee-ground emesis. No rectal bleeding, or melena. Coffee-ground emesis over 1 week ago. GENITOURINARY: No dysuria or hematuria. MUSCULOSKELETAL: Reports normal range of motion. SKIN: No rashes. No jaundice. ENDOCRINE: No chills, fevers. No excessive weight gain or loss. No polydipsia or polyuria. PSYCHIATRIC: Unremarkable. NEUROLOGY: No change in mental status. Denies dizziness, headache. ENT: Vision unremarkable. CONSTITUTIONAL: No recent weight loss. No fever, chills, night sweats. Past Medical History Past Medical History: Hypertension, Liver Disease, Osteoarthritis (OA), Seizure Disorder Additional Past Medical History / Comment(s): had Covid, was hospitalized then developed gastritis and sepsis 11/2023, Hx stomach ulcers and esophageal varices, Hx pancreatitis, anemia, last seizure(2019), Hepatitis A diagnosed in [employer] History of Any Multi-Drug Resistant Organisms: None Reported Past Surgical History: Back Surgery, Cholecystectomy, Ear Surgery, Orthopedic Surgery Additional Past Surgical History / Comment(s): EGD, colonoscopy, bilateral myringotomies/tubes, C4-C6 cervical fusion(October 2020), left foot surgery X3 Past Anesthesia/Blood Transfusion Reactions: No Reported Reaction, Motion Sickness Past Psychological History: Anxiety, Depression, PTSD Smoking Status: Current some day smoker Past Alcohol Use History: Occasional Past Drug Use History: None Reported - Past Family History Mother Family Medical History: Thyroid Disorder Father Additional Family Medical History / Comment(s): ETOH. Medications and Allergies Home Medications Medication Instructions Recorded Confirmed Type Folic Acid 1 mg PO DAILY 05/18/17 07/19/24 History hydrOXYzine HCL 25 mg PO DAILY 10/07/21 07/19/24 History Cetirizine HCl [Zyrtec] 10 mg PO DAILY 11/18/23 07/19/24 History traZODone HCL [Desyrel] 50 mg PO HS 11/18/23 07/19/24 History Thiamine [Vitamin B-1] 100 mg PO DAILY #30 tab 11/21/23 07/19/24 Rx ARIPiprazole [Abilify] 5 mg PO DAILY 07/19/24 07/19/24 History Ascorbic Acid [Vitamin C] 1,000 mg PO DAILY 07/19/24 07/19/24 History Baclofen 5 mg PO TID 07/19/24 07/19/24 History Cholecalciferol (Vitamin D3) 1,250 mcg PO MO 07/19/24 07/19/24 History [Vitamin D3 (1250 Mcg = 50,000 Iu)] Docusate [Colace] 100 mg PO DAILY 07/19/24 07/19/24 History Gabapentin [Neurontin] 300 mg PO Q8H 07/19/24 07/19/24 History Magnesium Oxide [Mag-Ox] 1,200 mg PO BID 07/19/24 07/19/24 History Metoprolol Succinate (ER) [Toprol 50 mg PO DAILY 07/19/24 07/19/24 History Xl] Multivitamins, Thera [Multivitamin 1 tab PO DAILY 07/19/24 07/19/24 History (formulary)] Omeprazole 40 mg PO DAILY 07/19/24 07/19/24 History Ondansetron Odt [Zofran Odt] 4 mg PO BID PRN 07/19/24 07/19/24 History Sertraline [Zoloft] 50 mg PO HS 07/19/24 07/19/24 History Allergies Allergy/AdvReac Type Severity Reaction Status Date / Time bupropion [From Wellbutrin] Allergy seizure Verified 07/19/24 10:34 Penicillins Allergy Rash/Hives Verified 07/19/24 10:34 Physical Exam Vitals: Vital Signs Temp Pulse Resp BP Pulse Ox 07/19/24 06:03 97.8 F 66 19 121/88 96 07/19/24 01:54 71 18 125/84 95 07/18/24 21:28 65 16 151/102 97 07/18/24 16:17 98.5 F 103 H 16 111/78 98 Intake and Output 07/18/24 07/19/24 07/19/24 22:59 06:59 14:59 Other: Weight 83.915 kg General appearance: The patient is alert, oriented, appears in no acute distress. HET: Head is normocephalic and atraumatic. Conjunctiva pink. Sclera anicteric. Neck: Supple without lymphadenopathy. Trachea midline. Heart: Regular. Lungs: Equal expansion, normal respiratory effort. Abdomen: Soft, mild diffuse tenderness, nondistended. Skin: No rashes. No jaundice. Extremities: Normal skin color and turgor. No pedal edema. Neurological: No focal deficits. Alert and oriented x3. Results CBC & Chem 7: 07/19/24 06:51 07/19/24 06:51 Labs: Abnormal Lab Results - Last 24 Hours (Table) 07/18/24 07/18/24 07/18/24 Range/Units 14:21 17:53 17:53 RBC 3.26 L (4.30-5.90) m/uL Hgb 10.5 L (13.0-17.5) gm/dL Hct 31.3 L (39.0-53.0) % PT 9.6 L (10.0-12.5) sec APTT 18.6 L (22.0-30.0) sec Plasma Lactic Acid Kel (0.7-2.0) mmol/L Calcium (8.4-10.2) mg/dL Magnesium (1.6-2.3) mg/dL AST (17-59) U/L Alkaline Phosphatase 32 L (38-126) U/L Total Protein (6.3-8.2) g/dL 07/18/24 07/19/24 07/19/24 Range/Units 17:53 06:51 06:51 RBC 3.09 L (4.30-5.90) m/uL Hgb 9.9 L (13.0-17.5) gm/dL Hct 30.2 L (39.0-53.0) % PT (10.0-12.5) sec APTT (22.0-30.0) sec Plasma Lactic Acid Kel 2.2 H* (0.7-2.0) mmol/L Calcium 8.2 L (8.4-10.2) mg/dL Magnesium 1.2 L (1.6-2.3) mg/dL AST 64 H (17-59) U/L Alkaline Phosphatase (38-126) U/L Total Protein 5.7 L (6.3-8.2) g/dL Assessment and Plan (1) Coffee ground emesis Narrative/Plan: 48-year-old male with history of alcohol abuse and reportedly previous esophageal varices and peptic ulcer disease with complaints of coffee-ground emesis over a week ago with some continued dark stools. Recently hospitalized however no endoscopy was done at that time. Patient continues to have some a nemia and dark stools. Need to consider possible peptic ulcer disease, esophageal varices alcohol gastritis or esophagitis or other possible etiologies. Recommend upper endoscopy for further evaluation. Continue with PPI, recommend alcohol abstinence and avoid NSAID use. Current Visit: Yes Status: Acute Code(s): K92.0 - HEMATEMESIS SNOMED Code(s): 88510814 (2) ETOH abuse Current Visit: Yes Status: Acute Code(s): F10.10 - ALCOHOL ABUSE, UNCOMPLICATED SNOMED Code(s): 57162530 (3) Abdominal pain Current Visit: No Status: Acute Code(s): R10.9 - UNSPECIFIED ABDOMINAL PAIN SNOMED Code(s): 36327697 Plan: 1. Continue symptomatic and supportive care 2. Avoid NSAIDs 3. Repeat CBC, transfuse for hemoglobin less than 7 4. Protonix 40 mg twice daily 5. Patient can have full liquid diet, n.p.o. after midnight 6. Recommend alcohol abstinence 7. Plan for upper endoscopy tomorrow 8. Monitor for alcohol withdrawal symptoms Thank you for this consultation, we will continue to follow. Dr. Omar Henao I agree with the dictator's note, documented as a scribe by Ade Jack.
[2024-07-19] MEDS: MAGNESIUM SULFATE-D5W PMX 1 GM in DEXTROSE/WATER 1 100ML.BAG IVPB SCH (11:52)
[2024-07-19] MEDS: GABAPENTIN 300 MG CAP PO SCH (13:13)
--- NOTE | 2024-07-19 14:13 | P.HPIM ---
History of Present Illness H&P Date: 07/19/24 History of present illness; Patient is patient is 48-year-old male with alcohol use disorder, liver disease, hypertension, hypertension, history of back surgery who presents with dark stools. Symptoms began 1 week ago when he had vomiting with hemoptysis, black stools and abdominal pain and was hospitalized for 3 days at [facility]. He did not undergo endoscopy or colonoscopy at that time. Since this time the hemetysis has resolved, however he continues to have dark stool and abdominal pain and w eakness. Pain is not radiating, worse with activity. He has had 1 BM daily since that time, no BM today, last was yesterday. He states he has history of esophageal varices, stomach ulcers. Last drink stated 10 days ago with no current withdrawal symptoms. Patient reports absence of fever, chills, chest pain, palpitations, diaphoresis, dyspnea, cough, nausea, vomiting, constipation, diarrhea, abdominal pain, myalgia, dizziness, headache, and dysuria. Labs hemoglobin 10.5 => 9.9, lactic acid 2.2 => 1.1, AST 64. EKG done in the ER inde,pendently interpreted showed heart rate of 94, no ST segment elevation or depression seen, no T-wave inversions seen. Spoke with the ER physician, patient admission was accepted by internal medicine service for treatment. REVIEW OF SYSTEMS: Pertinent positives and negatives noted in HPI. PHYSICAL EXAMINATION: Vitals reviewed GENERAL: No acute distress. Well developed, well nourished. HEENT: Pupils are round and equally reacting to light. EOMI. No scleral icterus. Normocephalic, atraumatic. CARDIOVASCULAR: S1 and S2 present. No murmurs, rubs, or gallops. PULMONARY: Chest is clear to auscultation, no wheezing, rhonchi, or crackles. ABDOMEN: Soft, RUQ tenderness, nondistended, normoactive bowel sounds. MUSCULOSKELETAL: No apparent joint swelling and deformities. EXTREMITIES: No apparent cyanosis, clubbing, or pedal edema. NEUROLOGICAL: The patient is alert and oriented x3, Gross neurological examination did not reveal any focal deficits. SKIN: No apparent rashes. Assessment and plan Patient is patient is 48-year-old male with alcohol use disorder, liver disease, hypertension, hypertension, history of back surgery who presents with dark stools. #Coffee ground emesis #Melena - Avoid NSAIDs - begin Protonix 40 mg twice daily - full liquid diet, n.p.o. after midnight - plan endoscopy tomorrow - GI following #Alcohol use disorder w/o withdrawal #Abdominal pain - Lipase 196 => 100 - no withdrawal symptoms, monitor - last drink 10 days ago - restart home vitamins - counseled patient on alcohol abstinence #Lactic acidosis - Initial LA 2.2 => 1.1 - Continue NS at 75ml/hr #Hypomagnesemia - initially 1.2 - replace magnesium per protocol - monitor CMP Chronic Medical Conditions # Peripheral neuropathy - Resume home meds #PTSD - Resume home meds F: IV Normal saline 75 mL/hr E: Replete as needed N: liquid diet DVT ppx: holding for bleed Code status: Full code Anticipated discharge place: home Anticipated discharge time: 1-2 days Dictation was produced using [employer] dictation software. Please excuse any grammatical, word or spelling errors. Past Medical History Past Medical History: Hypertension, Liver Disease, Osteoarthritis (OA), Seizure Disorder Additional Past Medical History / Comment(s): States had Covid, was hospitalized then developed gastritis and sepsis 11/2023, Hx stomach ulcers and esophageal varices, Hx pancreatitis, anemia, last seizure(2019), Hepatitis A diagnosed in [place] History of Any Multi-Drug Resistant Organisms: None Reported Past Surgical History: Back Surgery, Cholecystectomy, Ear Surgery, Orthopedic Surgery Additional Past Surgical History / Comment(s): EGD, colonoscopy, bilateral myringotomies/tubes, C4-C6 cervical fusion(October 2020), left foot surgery X3 Past Anesthesia/Blood Transfusion Reactions: No Reported Reaction, Motion Sickness Past Psychological History: Anxiety, Depression, PTSD Smoking Status: Current some day smoker Past Alcohol Use History: Occasional Past Drug Use History: None Reported - Past Family History Mother Family Medical History: Thyroid Disorder Father Additional Family Medical History / Comment(s): ETOH. Medications and Allergies Home Medications Medication Instructions Recorded Confirmed Type Folic Acid 1 mg PO DAILY 05/18/17 07/19/24 History hydrOXYzine HCL 25 mg PO DAILY 10/07/21 07/19/24 History Cetirizine HCl [Zyrtec] 10 mg PO DAILY 11/18/23 07/19/24 History traZODone HCL [Desyrel] 50 mg PO HS 11/18/23 07/19/24 History Thiamine [Vitamin B-1] 100 mg PO DAILY #30 tab 11/21/23 07/19/24 Rx ARIPiprazole [Abilify] 5 mg PO DAILY 07/19/24 07/19/24 History Ascorbic Acid [Vitamin C] 1,000 mg PO DAILY 07/19/24 07/19/24 History Baclofen 5 mg PO TID 07/19/24 07/19/24 History Cholecalciferol (Vitamin D3) 1,250 mcg PO MO 07/19/24 07/19/24 History [Vitamin D3 (1250 Mcg = 50,000 Iu)] Docusate [Colace] 100 mg PO DAILY 07/19/24 07/19/24 History Gabapentin [Neurontin] 300 mg PO Q8H 07/19/24 07/19/24 History Magnesium Oxide [Mag-Ox] 1,200 mg PO BID 07/19/24 07/19/24 History Metoprolol Succinate (ER) [Toprol 50 mg PO DAILY 07/19/24 07/19/24 History Xl] Multivitamins, Thera [Multivitamin 1 tab PO DAILY 07/19/24 07/19/24 History (formulary)] Omeprazole 40 mg PO DAILY 07/19/24 07/19/24 History Ondansetron Odt [Zofran Odt] 4 mg PO BID PRN 07/19/24 07/19/24 History Sertraline [Zoloft] 50 mg PO HS 07/19/24 07/19/24 History Allergies Allergy/AdvReac Type Severity Reaction Status Date / Time bupropion [From Wellbutrin] Allergy seizure Verified 07/19/24 10:34 Penicillins Allergy Rash/Hives Verified 07/19/24 10:34 Physical Exam Vitals: Vital Signs Temp Pulse Resp BP Pulse Ox 07/19/24 11:38 71 18 123/84 99 07/19/24 06:03 97.8 F 66 19 121/88 96 07/19/24 01:54 71 18 125/84 95 07/18/24 21:28 65 16 151/102 97 07/18/24 16:17 98.5 F 103 H 16 111/78 98 Intake and Output 07/18/24 07/19/24 07/19/24 22:59 06:59 14:59 Other: Weight 83.915 kg Results CBC & Chem 7: 07/19/24 06:51 07/19/24 06:51 Labs: Abnormal Lab Results - Last 24 Hours (Table) 07/18/24 07/18/24 07/18/24 Range/Units 14:21 17:53 17:53 RBC 3.26 L (4.30-5.90) m/uL Hgb 10.5 L (13.0-17.5) gm/dL Hct 31.3 L (39.0-53.0) % PT 9.6 L (10.0-12.5) sec APTT 18.6 L (22.0-30.0) sec Plasma Lactic Acid Kel (0.7-2.0) mmol/L Calcium (8.4-10.2) mg/dL Magnesium (1.6-2.3) mg/dL AST (17-59) U/L Alkaline Phosphatase 32 L (38-126) U/L Total Protein (6.3-8.2) g/dL 07/18/24 07/19/24 07/19/24 Range/Units 17:53 06:51 06:51 RBC 3.09 L (4.30-5.90) m/uL Hgb 9.9 L (13.0-17.5) gm/dL Hct 30.2 L (39.0-53.0) % PT (10.0-12.5) sec APTT (22.0-30.0) sec Plasma Lactic Acid Kel 2.2 H* (0.7-2.0) mmol/L Calcium 8.2 L (8.4-10.2) mg/dL Magnesium 1.2 L (1.6-2.3) mg/dL AST 64 H (17-59) U/L Alkaline Phosphatase (38-126) U/L Total Protein 5.7 L (6.3-8.2) g/dL
[2024-07-19] MEDS: hydrOXYzine HCL 25 MG TAB PO SCH (15:14)
[2024-07-19] MEDS: THIAMINE 100 MG TAB PO SCH (15:14)
[2024-07-19] MEDS: METOPROLOL SUCCINATE (ER) 50 MG TAB.ER.24H PO SCH (15:15)
[2024-07-19] MEDS: ARIPiprazole 5 MG TAB PO SCH (15:15)
[2024-07-19] MEDS: MULTIVITAMINS, THERA 1 EACH TAB PO SCH (15:15)
[2024-07-19] MEDS: SERTRALINE 50 MG TAB PO SCH (20:59)
[2024-07-19] MEDS: BACLOFEN 10 MG TAB PO PRN (20:59)
[2024-07-19] MEDS: MAGNESIUM OXIDE 400 MG TAB PO SCH (20:59)
[2024-07-19] MEDS ORDERED: traZODone HCL 50 MG TAB PO SCH (21:00)
[2024-07-19 21:46] VITALS: RESP 16
[2024-07-20 07:28] LABS: Basophils % (A) 1 %; Eosinophils # (A) 0.1 k/uL (0-0.7); Eosinophils % (A) 1 %; HCT 32.4 % (39.0-53.0); HGB 10.5 gm/dL (13.0-17.5); Lymphocytes # (A) 1.5 k/uL (1.0-4.8); Lymphocytes % (A) 27 %; MCHC 32.5 g/dL (31.0-37.0); MCV 98.6 fL (80.0-100.0); Mean Platelet Volume 7.1; Monocytes # (A) 0.5 k/uL (0-1.0); Monocytes % (A) 8 %; Neutrophils # (A) 3.3 k/uL (1.3-7.7); Neutrophils % (A) 60 %; Platelet Count 348 k/uL (150-450); RBC 3.28 m/uL (4.30-5.90); WBC 5.4 k/uL (3.8-10.6)
[2024-07-20 07:50] LABS: ALT 30 U/L (4-49); AST 35 U/L (17-59); African American GFR (CKD) >90 (>60 ml/min/1.73 sqM); Albumin 3.7 g/dL (3.5-5.0); Alkaline Phosphatase 60 U/L (38-126); Anion Gap 5 mmol/L; Blood Urea Nitrogen 6 mg/dL (9-20); Calcium 8.6 mg/dL (8.4-10.2); Carbon Dioxide 26 mmol/L (22-30); Chloride 106 mmol/L (98-107); Glucose 93 mg/dL (74-99); Magnesium 1.7 mg/dL (1.6-2.3); Non-African American GFR(CKD) >90 (>60 ml/min/1.73 sqM); Phosphorus 3.9 mg/dL (2.5-4.5); Potassium 4.8 mmol/L (3.5-5.1); Sodium 137 mmol/L (137-145); Total Bilirubin 0.3 mg/dL (0.2-1.3); Total Protein 5.9 g/dL (6.3-8.2)
[2024-07-20] MEDS: FOLIC ACID 1 MG TAB PO SCH (08:24)
[2024-07-20] MEDS: DOCUSATE 100 MG CAP PO SCH (08:25)
[2024-07-20] MEDS: IV FLUID CONTINUATION 500 ML IV ONE (16:38)
[2024-07-20] MEDS ORDERED: PROPOFOL 10 MG/ML 20 ML VIAL IV ONE (16:38)
[2024-07-20] MEDS ORDERED: LIDOCAINE 1% INJ 10MG/ML (20 ML MDV) ONE (16:38)
--- NOTE | 2024-07-20 16:51 | P.PCN ---
Date of Procedure: 07/20/24 Procedure(s) Performed: BRIEF HISTORY: Patient is a 48-year-old, pleasant, white male with history of alcohol abuse admitted to hospital with multiple episodes of black tarry stools.. He had 2 episodes of coffee-ground emesis about 2 weeks ago at which time he was admitted to [facility] for 3 days and discharged home. Because of persistent black tarry stools he was readmitted to the hospital and scheduled for an upper endoscopy to evaluate further PROCEDURE PERFORMED: Esophagogastroduodenoscopy with biopsy. PREOPERATIVE DIAGNOSIS: Black tarry stools of 2 weeks duration. IV sedation per anesthesia. PROCEDURE: After informed consent was obtained, the patient was brought into the endoscopy unit. IV sedation was administered by Anesthesia under continuous monitoring. Initially the Olympus GIF-140 video endoscope was inserted into the mouth. Esophagus intubated without any difficulty. It was gradually advanced into the stomach and duodenum and carefully examined. The bulb and the second part of the duodenum appeared normal. The scope at this time was withdrawn to the stomach, adequately insufflated with air, and upon careful examination, mucosa of the antrum and mild gastritis. Mucosa of the, body, cardia and the fundus appeared normal. The scope was then withdrawn into the esophagus. Size hiatal hernia noted. The GE junction was located at 35 cm from the incisors. There were linear erosions and circumferential ulcerations noted in the distal esophagus at 35 cm from the incisors and another ulceration at 30 cm from incisors with no active bleeding. There was Murillo's appearing mucosa extending from 30 to 35 cm from the incisors and multiple biopsies were done f rom this area. The rest of the esophagus appeared normal and the patient tolerated the procedure well. IMPRESSION: 1. Circumferential ulceration of the distal esophagus as well as in the mid esophagus consistent with LA grade D reflux esophagitis. 2. 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 Moderate size hiatal hernia 4. Antral gastritis. RECOMMENDATIONS: The findings of this examination were discussed with the patient. He will be continued Protonix 40 mg twice daily. Advance diet as tolerated. If hemoglobin remains stable he can be discharged home tomorrow.
[2024-07-20 17:15] VITALS: BP 124/84; PULSE 67; TEMP 98.3
--- NOTE | 2024-07-20 17:36 | P.DS ---
Providers Date of admission: 07/18/24 19:20 Expected date of discharge: 07/20/24 Attending physician: Austin Garcia Consults: 07/18/24 19:20 Consult Physician Routine Consulting Provider: Amelia Henao Consult Reason/Comments: gib Do you want consulting provider notified?: Yes Primary care physician: Physician Nonstaff Hospital Course: Discharge diagnoses; #Coffee ground emesis #Melena #Alcohol use disorder w/o withdrawal #Abdominal pain #Lactic acidosis #Hypomagnesemia #Peripheral neuropathy #PTSD Hospital course; Patient is discharged in stable condition to home. He is to resume his home medications, increased omeprazole to 40 mg BID. Advised to follow-up with PCP and public relations intern. History of present illness; Patient is patient is 48-year-old male with alcohol use disorder, liver disease, hypertension, hypertension, history of back surgery who presents with dark stools. Symptoms began 1 week ago when he had vomiting with hemoptysis, black stools and abdominal pain and was hospitalized for 3 days at [facility]. He did not undergo endoscopy or colonoscopy at that time. Since this time the hemetysis has resolved, however he continues to have dark stool and abdominal pain and weakness. Pain is not radiating, worse with activity. He has had 1 BM daily since that time, no BM today, last was yesterday. He states he has history of esophageal varices, stomach ulcers. Last drink stated 10 days ago with no current withdrawal symptoms. Patient reports absence of fever, chills, chest pain, palpitations, diaphoresis, dyspnea, cough, nausea, vomiting, constipation, diarrhea, abdominal pain, myalgia, dizziness, headache, and dysuria. Labs hemoglobin 10.5 => 9.9, lactic acid 2.2 => 1.1, AST 64. EKG done in the ER inde,pendently interpreted showed heart rate of 94, no ST segment elevation or depression seen, no T-wave inversions seen. During hospital course patient treated for coffee-ground emesis and melena. He underwent EGD, findings of Circumferential ulceration of the distal esophagus as well as in the mid esophagus consistent with LA grade D reflux esophagitis. 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 Moderate size hiatal hernia. Antral gastritis. PHYSICAL EXAMINATION: Vitals reviewed GENERAL: No acute distress. Well developed, well nourished. HEENT: Pupils are round and equally reacting to light. EOMI. No scleral icterus. Normocephalic, atraumatic. CARDIOVASCULAR: S1 and S2 present. No murmurs, rubs, or gallops. PULMONARY: Chest is clear to auscultation, no wheezing, rhonchi, or crackles. ABDOMEN: Soft, RUQ tenderness, nondistended, normoactive bowel sounds. MUSCULOSKELETAL: No apparent joint swelling and deformities. EXTREMITIES: No apparent cyanosis, clubbing, or pedal edema. NEUROLOGICAL: The patient is alert and oriented x3, Gross neurological examination did not reveal any focal deficits. SKIN: No apparent rashes. Dictation was produced using [employer] dictation software. please excuse any grammatical, word or spelling errors. Patient Condition at Discharge: Fair Plan - Discharge Summary Discharge Rx Participant: No New Discharge Prescriptions: Continue Folic Acid 1 mg PO DAILY Thiamine [Vitamin B-1] 100 mg PO DAILY #30 tab Baclofen 5 mg PO TID Gabapentin [Neurontin] 300 mg PO Q8H Metoprolol Succinate (ER) [Toprol XL] 50 mg PO DAILY Multivitamins, Thera [Multivitamin (formulary)] 1 tab PO DAILY Sertraline [Zoloft] 50 mg PO HS Magnesium Oxide [Mag-Ox] 1,200 mg PO BID hydrOXYzine HCL 25 mg PO DAILY traZODone HCL [Desyrel] 50 mg PO HS Cetirizine HCl [Zyrtec] 10 mg PO DAILY ARIPiprazole [Abilify] 5 mg PO DAILY Ascorbic Acid [Vitamin C] 1,000 mg PO DAILY Cholecalciferol (Vitamin D3) [Vitamin D3 (1250 Mcg = 50,000 Iu)] 1,250 mcg PO MO Docusate [Colace] 100 mg PO DAILY Ondansetron Odt [Zofran ODT] 4 mg PO BID PRN PRN Reason: Nausea And Vomiting Changed Omeprazole 40 mg PO BID #60 cap Discharge Medication List Folic Acid 1 mg PO DAILY 05/18/17 [History] hydrOXYzine HCL 25 mg PO DAILY 10/07/21 [History] Cetirizine HCl [Zyrtec] 10 mg PO DAILY 11/18/23 [History] traZODone HCL [Desyrel] 50 mg PO HS 11/18/23 [History] Thiamine [Vitamin B-1] 100 mg PO DAILY #30 tab 11/21/23 [Rx] ARIPiprazole [Abilify] 5 mg PO DAILY 07/19/24 [History] Ascorbic Acid [Vitamin C] 1,000 mg PO DAILY 07/19/24 [History] Baclofen 5 mg PO TID 07/19/24 [History] Cholecalciferol (Vitamin D3) [Vitamin D3 (1250 Mcg = 50,000 Iu)] 1,250 mcg PO MO 07/19/24 [History] Docusate [Colace] 100 mg PO DAILY 07/19/24 [History] Gabapentin [Neurontin] 300 mg PO Q8H 07/19/24 [History] Magnesium Oxide [Mag-Ox] 1,200 mg PO BID 07/19/24 [History] Metoprolol Succinate (ER) [Toprol XL] 50 mg PO DAILY 07/19/24 [History] Multivitamins, Thera [Multivitamin (formulary)] 1 tab PO DAILY 07/19/24 [History] Ondansetron Odt [Zofran ODT] 4 mg PO BID PRN 07/19/24 [History] Sertraline [Zoloft] 50 mg PO HS 07/19/24 [History] Omeprazole 40 mg PO BID #60 cap 07/20/24 [Rx] Follow up Appointment(s)/Referral(s): Amelia Henao MD [STAFF PHYSICIAN] - 1 Week (Please call to schedule follow up for ulcers and Barretts Esophagus. ) Nonstaff,Physician [Primary Care Provider] - 1-2 days (Please follow up with your primary care doctor. ) Patient Instructions/Handouts: Murillo Esophagus (DC), Esophagitis (DC) Discharge Disposition: HOME SELF-CARE
== END 2024-07-20 18:08 | disposition home or self-care (01) ==
LOC: EC 16:12 → 1SOBS 19:20 → 3SCARD 22:21
PROVIDERS: ADMIT Hospitalist; ATTEND Hospitalist
DX: K21.00 Gastro-esophageal reflux disease with esophagitis, without bleeding (principal); K22.70 Barrett's esophagus without dysplasia; E87.20 Acidosis, unspecified; K44.9 Diaphragmatic hernia without obstruction or gangrene; K29.70 Gastritis, unspecified, without bleeding; F10.10 Alcohol abuse, uncomplicated; E83.42 Hypomagnesemia; G62.9 Polyneuropathy, unspecified; F43.10 Post-traumatic stress disorder, unspecified; K76.9 Liver disease, unspecified; I10 Essential (primary) hypertension; I85.00 Esophageal varices without bleeding; D64.9 Anemia, unspecified; R04.2 Hemoptysis; R63.0 Anorexia; F17.200 Nicotine dependence, unspecified, uncomplicated; F32.A Depression, unspecified; F41.9 Anxiety disorder, unspecified; Z79.1 Long term (current) use of non-steroidal anti-inflammatories (NSAID); Z79.899 Other long term (current) drug therapy; Z88.0 Allergy status to penicillin; Z88.8 Allergy status to other drugs, medicaments and biological substances; Z87.11 Personal history of peptic ulcer disease
CPT/HCPCS: 36415; 43239; 80053; 83605; 83690; 83735; 84100; 85025; 85610; 85730; 86850; 86900; 86901; 88305

== ENCOUNTER 2025-01-14 19:36 | Observation (INO) | payer MEDICARE ==
--- NOTE | 2025-01-14 20:03 | ED ---
General Adult HPI - General Source: patient Mode of arrival: wheelchair Limitations: no limitations <Binh Mckinley - Last Filed: 01/16/25 16:19> <Basilia Guerrero - Last Filed: 01/18/25 19:46> - General Chief complaint: Chest Pain Stated complaint: sob,chest pain Time Seen by Provider: 01/14/25 19:53 - History of Present Illness Initial comments: Patient presents to the ED complaining of having right-sided chest pain and dyspnea since leaving [facility]ism this morning. Patient states that his symptoms are intermittent. Patient denies having any significant pain or dyspnea currently. Patient admits to regular alcohol use, and he states that he last used alcohol this morning. Patient denies illicit drug use. Patient denies fever or chills, trauma or injury, headache, focal neuro deficit, neck/arm/jaw/back pain, left- sided chest pain, pleuritic pain, cough or cold symptoms, palpitations, dizziness, nausea/vomiting/diaphoresis, abdominal pain, dysuria or urinary symptoms, decreased urine output, leg or calf swelling or pain, or any other symptoms or complaints. (Binh Mckinley) - Related Data Home Medications Medication Instructions Recorded Confirmed Folic Acid 1 mg PO DAILY 05/18/17 01/15/25 Cetirizine HCl [Zyrtec] 10 mg PO DAILY 11/18/23 01/15/25 traZODone HCL [Desyrel] 50 mg PO HS 11/18/23 01/15/25 Baclofen 5 mg PO TID 07/19/24 01/15/25 Magnesium Oxide [Mag-Ox] 1,200 mg PO BID 07/19/24 01/15/25 Metoprolol Succinate (ER) [Toprol 50 mg PO DAILY 07/19/24 01/15/25 XL] Multivitamins, Thera [Multivitamin 1 tab PO DAILY 07/19/24 01/15/25 (formulary)] Ondansetron Odt [Zofran ODT] 4 mg PO BID PRN 07/19/24 01/15/25 Gabapentin 600 mg PO TID 09/13/24 01/15/25 Meloxicam [Mobic] 15 mg PO DAILY 09/13/24 01/15/25 ALPRAZolam [Xanax] 0.5 mg PO DAILY PRN 01/02/25 01/15/25 Previous Rx's Medication Instructions Recorded Thiamine [Vitamin B-1] 100 mg PO DAILY #30 tab 11/21/23 Omeprazole 40 mg PO BID #60 cap 07/20/24 Furosemide [Lasix] 40 mg PO DAILY #30 tab 01/02/25 Allergies Allergy/AdvReac Type Severity Reaction Status Date / Time Penicillins Allergy Rash/Hives Verified 01/15/25 11:42 bupropion [From Wellbutrin] AdvReac seizure Verified 01/15/25 11:42 Review of Systems ROS Other: All systems not noted in ROS Statement are negative. <Binh Mckinley - Last Filed: 01/16/25 16:19> ROS Other: All systems not noted in ROS Statement are negative. <Basilia Guerrero - Last Filed: 01/18/25 19:46> ROS Statement: Those systems with pertinent positive or pertinent negative responses have been documented in the HPI. Past Medical History Past Medical History: Heart Failure, Hypertension, Osteoarthritis (OA), Seizure Disorder Additional Past Medical History / Comment(s): States had Covid, was hospitalized then developed gastritis and sepsis 11/2023, Hx stomach ulcers and esophageal varices, Hx pancreatitis, anemia, last seizure(2022), Hepatitis A diagnosed in [place] History of Any Multi-Drug Resistant Organisms: None Reported Past Surgical History: Back Surgery, Cholecystectomy, Ear Surgery, Orthopedic Surgery Additional Past Surgical History / Comment(s): EGD, colonoscopy, bilateral myringotomies/tubes, C4-C6 cervical fusion(October 2020), left foot surgery X3 Past Anesthesia/Blood Transfusion Reactions: No Reported Reaction, Motion Sickness Additional Past Anesthesia/Blood Transfusion Reaction / Comment(s): No hx. blood transfusion. Past Psychological History: Anxiety, Depression, PTSD Smoking Status: Former smoker Past Alcohol Use History: Occasional Past Drug Use History: None Reported - Past Family History Mother Family Medical History: Thyroid Disorder Father Additional Family Medical History / Comment(s): ETOH. <Binh Mckinley - Last Filed: 01/16/25 16:19> General Exam Limitations: no limitations General appearance: alert, in no apparent distress Head exam: Present: atraumatic Eye exam: Present: normal appearance, EOMI ENT exam: Present: mucous membranes moist Neck exam: Present: other (Trachea is in midline) Respiratory exam: Present: normal lung sounds bilaterally. Absent: respiratory distress, wheezes, rales, rhonchi, stridor, chest wall tenderness Cardiovascular Exam: Present: normal rhythm, tachycardia, normal heart sounds, other (Normal radial pulses bilaterally) GI/Abdominal exam: Present: soft. Absent: distended, tenderness, guarding Extremities exam: Present: other (Negative Homans' sign bilaterally). Absent: tenderness, pedal edema, calf tenderness Neurological exam: Present: alert, oriented X3. Absent: motor sensory deficit Skin exam: Present: warm, dry, normal color <Binh Mckinley - Last Filed: 01/16/25 16:19> Course <Binh Mckinley - Last Filed: 01/16/25 16:19> Vital Signs 01/14/25 01/14/25 01/14/25 19:44 20:38 22:00 Temperature 100.9 F H 98.8 F Pulse Rate 121 H 111 H 108 H Respiratory 20 18 16 Rate Blood Pressure 126/88 128/90 O2 Sat by Pulse 98 98 96 Oximetry 01/15/25 00:49 Temperature Pulse Rate 105 H Respiratory 18 Rate Blood Pressure 128/90 O2 Sat by Pulse 97 Oximetry - Reevaluation(s) Reevaluation #1: 01/14/25 20:52 Patient was endorsed to oncoming ED physician Dr. Guerrero (secondary to shift change) with the patient's labs and chest x-ray still pending. Dr. Guerrero to take over care of the patient at this time. (Binh Mckinley) EKG Findings - EKG Comments: EKG Findings:: ED physician interpretation (interpreted by me): Sinus tachycardia, ventricular rate of 115 bpm, single PVC, normal ME and QRS intervals, normal QT interval, normal axis, no ST or T wave abnormality <Binh Mckinley - Last Filed: 01/16/25 16:19> Medical Decision Making - Lab Data Result diagrams: 01/15/25 09:06 01/15/25 09:06 <Binh Mckinley - Last Filed: 01/16/25 16:19> - Lab Data Result diagrams: 01/15/25 09:06 01/15/25 09:06 <Basilia Guerrero - Last Filed: 01/18/25 19:46> - Medical Decision Making Was pt. sent in by a medical professional or institution ([facility], [facility], urgent care, hospital, or prison...) When possible be specific @ -No Did you speak to anyone other than the patient for history (EMS, parent, family, police, friend...)? What history was obtained from this source @ -No Did you review nursing and triage notes (agree or disagree)? Why? @ -I reviewed and agree with nursing and triage notes Were old charts reviewed (outside hosp., previous admission, EMS record, old EKG, old radiological studies, urgent care reports/EKG's, prison records)? Report findings @ -No old charts were reviewed Differential Diagnosis (chest pain, altered mental status, abdominal pain women, abdominal pain men, vaginal bleeding, weakness, fever, dyspnea, syncope, headache, dizziness, GI bleed, back pain, seizure, CVA, palpatations, mental health, musculoskeletal)? @ -Differential Chest Pain: Stable Angina, Unstable Angina, STEMI, NSTEMI, Aortic Dissection, Pneumothorax, Musculoskeletal, Esophageal Spasm, GERD, pulmonary embolism, this is not meant to be an all-inclusive list. EKG interpreted by me (3pts min.). @ -As above X-rays interpreted by me (1pt min.). @ -Pending CT interpreted by me (1pt min.). @ -None done U/S interpreted by me (1pt. min.). @ -None done What testing was considered but not performed or refused? (CT, X-rays, U/S, labs)? Why? @ -None What meds were considered but not given or refused? Why? @ -None Did you discuss the management of the patient with other professionals (professionals i.e. [facility], [facility], lab, RT, psych nurse, outreach and education social worker, policy officer, teacher, principal gifts officer, leather case finisher)? Give summary @ -No Was smoking cessation discussed for >3mins.? @ -No Was critical care preformed (if so, how long)? @ -No Were there social determinants of health that impacted care today? How? (Homelessness, low income, unemployed, alcoholism, drug addiction, transportation, low edu. Level, literacy, decrease access to med. care, penitentiary, rehab)? @ -No Was there de-escalation of care discussed even if they declined (Discuss DNR or withdrawal of care, Hospice)? DNR status @ -No What co-morbidities impacted this encounter? (DM, HTN, Smoking, COPD, CAD, Cancer, CVA, ARF, Chemo, Hep., AIDS, mental health diagnosis, sleep apnea, morbid obesity)? @ -None Was patient admitted / discharged? Hospital course, mention meds given and route, prescriptions, significant lab abnormalities, going to OR and other pertinent info. @ -Patient was endorsed to oncoming ED physician Dr. Guerrero (secondary to shift change) with the patient's labs and chest x-ray still pending. Dr. Guerrero to take over care of the patient at this time. (Arlen,Binh) Was patient admitted / discharged? Hospital course, mention meds given and route, prescriptions, significant lab abnormalities, going to OR and other pertinent info. @ -Admission- Patient was signed out to myself at 9 PM at shift change. Briefly is a 49-year-old male with a history of CHF, alcoholism presenting today for right-si ded chest tightness. Chest tightness has since resolved. Labs are currently pending. Patient was febrile on arrival time 100.9, tachycardic. He has received Toradol and 500 cc IV fluids. On my assessment pt is resting comfortably. Does endorse mild anxiety. We given 5 mg of Valium and Tylenol. D-dimer is elevated CT PE study ordered. On review of patient's labs, troponin is undetectable, magnesium 1.4. Ordered replacement. Tachycardia is only somewhat improved with treatment of patient's fever. Blood alcohol 354. Given exertional chest pain plan to admit patient for observation. Patient was tachycardic and febrile on arrival, it was suspected that tachycardia was driven by alcohol withdrawal, patient is currently comfortable appearing. He denies additional infectious symptoms with exception of non productive cough. On review of chest XR and CT, I do not see an obvious consolidations/ signs of pneumonia. Though I suspect viral source of fever vs alcohol withdrawal as cause of vitals on arrival, will add blood cultures and dose of rocephin. On reassesment pt endorses mild headache. Will give additional 5 mg valium since pt has already received tylenol and toradol. Ordered additional 500 cc IV fluids in case tachycardia is driven by volume depletion. Clinically pt's MM are somewhat dry, so I feel he would benefit from additional fluid bolus. Case discussed with Dr. Martinez, kindly accepts pt for admission. Undiagnosed new problem with uncertain prognosis? @ -No Drug Therapy requiring intensive monitoring for toxicity (Heparin, Nitro, Insulin, Cardizem)? @ -No Were any procedures done? @ -No Diagnosis/symptom? Alcohol intoxication, exertional chest pain, fever, hypomagnesemia Acute, or Chronic, or Acute on Chronic? acute Uncomplicated (without systemic symptoms) or Complicated (systemic symptoms)? @ complicated Side effects of treatment? @ -No Exacerbation, Progression, or Severe Exacerbation? @ -No Poses a threat to life or bodily function? How? (Chest pain, [place], AL, pneumonia, PE, COPD, DKA, ARF, appy, cholecystitis, CVA, Diverticulitis, Homicidal, Suicidal, threat to staff... and all critical care pts) Potentially (Basilia Guerrero) - Lab Data Lab Results 01/14/25 01/14/25 01/14/25 Range/Units 20:12 20:12 20:12 WBC 6.99 (4.50-10.00) 10*3/uL RBC 4.96 (4.40-5.60) 10*6/uL Hgb 11.7 L (13.0-17.0) g/dL Hct 37.2 L (39.6-50.0) % MCV 75.0 L (80.0-97.0) fL MCH 23.6 L (27.0-32.0) pg MCHC 31.5 L (32.0-37.0) g/dL Plt Count 368 (140-440) 10*3/uL MPV 8.8 L (9.5-12.2) fL Immature Gran % (Auto) 0.1 % Neutrophils % 38.4 % Lymphocytes % 51.6 % Monocytes % 8.2 % Eosinophils % 0.7 % Basophils % 1.0 % Immature Gran # 0.01 (0.00-0.04) 10*3/uL Neutrophils # 2.68 (1.80-7.70) 10*3/uL Lymphocytes # 3.61 (0.90-5.00) 10*3/uL Monocytes # 0.57 (0.20-1.00) 10*3/uL Eosinophils # 0.05 (0.04-0.35) 10*3/uL Basophils # 0.07 (0.00-0.10) 10*3/uL PT 10.3 (10.0-12.5) sec INR 0.9 (<1.2) APTT 22.9 (22.0-30.0) sec D-Dimer 1.20 H (<0.60) mg/L FEU Sodium 142 (137-145) mmol/L Potassium 3.8 (3.5-5.1) mmol/L Chloride 96 L (98-107) mmol/L Carbon Dioxide 22 (22-30) mmol/L Anion Gap 24 mmol/L BUN 18 (9-20) mg/dL Creatinine 0.86 (0.66-1.25) mg/dL Est GFR (CKD-EPI)AfAm >90 (>60 ml/min/1.73 sqM) Est GFR (CKD-EPI)NonAf >90 (>60 ml/min/1.73 sqM) Glucose 104 H (74-99) mg/dL Calcium 9.7 (8.4-10.2) mg/dL Magnesium 1.4 L (1.6-2.3) mg/dL Total Bilirubin 0.5 (0.2-1.3) mg/dL AST 95 H (17-59) U/L ALT 51 H (4-49) U/L Alkaline Phosphatase 90 (38-126) U/L Troponin I (0.000-0.034) ng/mL NT-Pro-B Natriuret Pep <20 pg/mL Total Protein 8.9 H (6.3-8.2) g/dL Albumin 5.4 H (3.5-5.0) g/dL Serum Alcohol 354 H* mg/dL Influenza Type A (PCR) (Not Detectd) Influenza Type B (PCR) (Not Detectd) RSV (PCR) (Not Detectd) SARS-CoV-2 (PCR) (Not Detectd) 01/14/25 01/14/25 01/14/25 Range/Units 20:12 20:41 23:10 WBC (4.50-10.00) 10*3/uL RBC (4.40-5.60) 10*6/uL Hgb (13.0-17.0) g/dL Hct (39.6-50.0) % MCV (80.0-97.0) fL MCH (27.0-32.0) pg MCHC (32.0-37.0) g/dL Plt Count (140-440) 10*3/uL MPV (9.5-12.2) fL Immature Gran % (Auto) % Neutrophils % % Lymphocytes % % Monocytes % % Eosinophils % % Basophils % % Immature Gran # (0.00-0.04) 10*3/uL Neutrophils # (1.80-7.70) 10*3/uL Lymphocytes # (0.90-5.00) 10*3/uL Monocytes # (0.20-1.00) 10*3/uL Eosinophils # (0.04-0.35) 10*3/uL Basophils # (0.00-0.10) 10*3/uL PT (10.0-12.5) sec INR (<1.2) APTT (22.0-30.0) sec D-Dimer (<0.60) mg/L FEU Sodium (137-145) mmol/L Potassium (3.5-5.1) mmol/L Chloride (98-107) mmol/L Carbon Dioxide (22-30) mmol/L Anion Gap mmol/L BUN (9-20) mg/dL Creatinine (0.66-1.25) mg/dL Est GFR (CKD-EPI)AfAm (>60 ml/min/1.73 sqM) Est GFR (CKD-EPI)NonAf (>60 ml/min/1.73 sqM) Glucose (74-99) mg/dL Calcium (8.4-10.2) mg/dL Magnesium (1.6-2.3) mg/dL Total Bilirubin (0.2-1.3) mg/dL AST (17-59) U/L ALT (4-49) U/L Alkaline Phosphatase (38-126) U/L Troponin I <0.012 <0.012 (0.000-0.034) ng/mL NT-Pro-B Natriuret Pep pg/mL Total Protein (6.3-8.2) g/dL Albumin (3.5-5.0) g/dL Serum Alcohol mg/dL Influenza Type A (PCR) Not Detected (Not Detectd) Influenza Type B (PCR) Not Detected (Not Detectd) RSV (PCR) Not Detected (Not Detectd) SARS-CoV-2 (PCR) Not Detected (Not Detectd) - Radiology Data Chest x-ray: (Binh Mckinley) Disposition Is patient prescribed a controlled substance at d/c from ED?: No <Binh Mckinley - Last Filed: 01/16/25 16:19> <Basilia Guerrero - Last Filed: 01/18/25 19:46> Clinical Impression: Chest pain, Dyspnea, Alcohol withdrawal, Fever Disposition: ADMITTED IP TO THIS HOSP Condition: Stable
[2025-01-14 20:21] LABS: Basophils # (A) 0.07 10*3/uL (0.00-0.10); Eosinophils # (A) 0.05 10*3/uL (0.04-0.35); Eosinophils % (A) 0.7 %; HCT 37.2 % (39.6-50.0); HGB 11.7 g/dL (13.0-17.0); Lymphocytes # (A) 3.61 10*3/uL (0.90-5.00); Lymphocytes % (A) 51.6 %; MCH 23.6 pg (27.0-32.0); MCHC 31.5 g/dL (32.0-37.0); Mean Platelet Volume 8.8 fL (9.5-12.2); Monocytes # (A) 0.57 10*3/uL (0.20-1.00); Monocytes % (A) 8.2 %; Neutrophils # (A) 2.68 10*3/uL (1.80-7.70); Neutrophils % (A) 38.4 %; Platelet Count 368 10*3/uL (140-440); RBC 4.96 10*6/uL (4.40-5.60); RDW 20.2 % (11.5-14.5); WBC 6.99 10*3/uL (4.50-10.00)
[2025-01-14] MEDS: KETOROLAC 15 MG/ML 1 ML VIAL IVP STA (20:31)
[2025-01-14] MEDS: SODIUM CHLORIDE 0.9% 500 ML 500 ML IV STA (20:31)
[2025-01-14] MEDS: LORazepam 1 MG/0.5 ML VIAL IV STA (20:31)
[2025-01-14 20:46] LABS: INR 0.9 (<1.2); Partial Thromboplastin Time 22.9 sec (22.0-30.0); Prothrombin Time 10.3 sec (10.0-12.5)
[2025-01-14 21:12] LABS: ALT 51 U/L (4-49); AST 95 U/L (17-59); African American GFR (CKD) >90 (>60 ml/min/1.73 sqM); Albumin 5.4 g/dL (3.5-5.0); Alkaline Phosphatase 90 U/L (38-126); Anion Gap 24 mmol/L; Blood Urea Nitrogen 18 mg/dL (9-20); Calcium 9.7 mg/dL (8.4-10.2); Carbon Dioxide 22 mmol/L (22-30); Chloride 96 mmol/L (98-107); Glucose 104 mg/dL (74-99); Magnesium 1.4 mg/dL (1.6-2.3); Non-African American GFR(CKD) >90 (>60 ml/min/1.73 sqM); Potassium 3.8 mmol/L (3.5-5.1); Sodium 142 mmol/L (137-145); Total Bilirubin 0.5 mg/dL (0.2-1.3); Total Protein 8.9 g/dL (6.3-8.2)
[2025-01-14] MEDS: ACETAMINOPHEN TAB 500 MG TAB PO STA (21:20)
[2025-01-14] MEDS: diazePAM 5 MG TAB PO STA ×2 (21:21→23:16)
[2025-01-14 21:29] LABS: Influenza A Not Detected (Not Detectd); Influenza B Not Detected (Not Detectd); RSV Not Detected (Not Detectd)
--- NOTE | 2025-01-14 22:16 | XR ---
EXAMINATION TYPE: XR chest 2V DATE OF EXAM: 01/14/2025 8:48 PM COMPARISON: None. CLINICAL INDICATION: Male, 49 years old with history of Chest Pain, TECHNIQUE: XR chest 2V view(s) obtained. FINDINGS: The heart size is normal. The pulmonary vasculature is normal. The lungs are clear. IMPRESSION: 1. No acute pulmonary process. [facility], , 01/14/2025 10:13 PM
[2025-01-14 22:24] LABS: Alcohol 354 mg/dL
[2025-01-14 22:25] LABS: NT-Pro-B-Type Natriuretic Pept <20 pg/mL
[2025-01-14] MEDS ORDERED: LORazepam 2 MG/ML INJ IV PRN (22:57)
[2025-01-14] MEDS ORDERED: LORazepam 1 MG TAB PO PRN (22:57)
[2025-01-14] MEDS ORDERED: LORazepam 0.5 MG TAB PO PRN (22:57)
[2025-01-14] MEDS ORDERED: LORazepam 1 MG/0.5 ML VIAL IV PRN (23:03)
[2025-01-14] MEDS: cefTRIAXone IN SWFI 1,000 MG/10 ML SYRINGE IVP STA (23:15)
[2025-01-14] MEDS: ASPIRIN 81 MG PO STA (23:15)
[2025-01-14] MEDS: THIAMINE 100 MG/ML 2 ML VIAL IM STA (23:16)
[2025-01-14] MEDS: SODIUM CHLORIDE 0.9% 500 ML 500 ML IV ONE (23:16)
[2025-01-14] MEDS: MAGNESIUM SULFATE-D5W PMX 1 GM in DEXTROSE/WATER 1 100ML.BAG IVPB SCH (23:17)
--- NOTE | 2025-01-14 23:23 | CT ---
EXAMINATION TYPE: CT chest angio for PE DATE OF EXAM: 01/14/2025 9:45 PM COMPARISON: None. CLINICAL INDICATION: Male, 49 years old with history of elevated dimer right sided chest pain, R SIDE CHEST PAIN, ELEVATED DIMER, TECHNIQUE: CT of the chest is performed on a spiral scan at 2 mm thick sections. Study is performed with intravenous contrast timed for evaluation for pulmonary embolism. This will limit additional po rtions of the evaluation. 10mm MIP images reconstructed by the technologist are reviewed on the comp uter in the coronal and sagittal planes. Contrast used:100ML mL of Isovue 370 with IV Contrast, (none if empty) Oral contrast used: (none if empty) CT DLP: 492.6 mGycm, Automated exposure control for dose reduction was used. FINDINGS: No persistent filling defects are evident to suggest an acute pulmonary embolism. No mediastinal or hilar adenopathy enlarged by CT criteria is evident. The ascending aorta diameter at the level of the main pulmonary artery is 3.7 cm. The main pulmonary artery diameter at the bifurcation is 3.4 cm. Lung windows are clear. No significant coronary artery calcifications. Limited CT sections were through the upper abdomen. Upper abdomen appears unremarkable. IMPRESSION: 1. No acute pulmonary embolus. 2. No acute pulmonary process. [facility], , 01/14/2025 11:20 PM
[2025-01-14] MEDS ORDERED: CALCIUM CARBONATE 500 MG CHEWABLE PO PRN (23:30)
[2025-01-14] MEDS ORDERED: NALOXONE 0.4 MG/ML 1 ML VIAL IV PRN (23:30)
[2025-01-14] MEDS ORDERED: MAG HYDROX/AL HYDROX/SIMETH 30 ML CUP PO PRN (23:30)
[2025-01-15] MEDS ORDERED: IBUPROFEN 400 MG TAB PO PRN (02:00)
[2025-01-15] MEDS: LORazepam 1 MG TAB PO PRN ×3 (02:24→08:18)
[2025-01-15] MEDS ORDERED: ACETAMINOPHEN TAB 325 MG TAB PO PRN (03:00)
[2025-01-15] MEDS: ONDANSETRON 4 MG/2 ML VIAL IVP PRN (05:17)
[2025-01-15] MEDS: FOLIC ACID 1 MG TAB PO SCH (08:18)
[2025-01-15] MEDS: FAMOTIDINE 20 MG TAB PO SCH (08:18)
[2025-01-15] MEDS: ENOXAPARIN 40 MG/0.4 ML SYRINGE SQ SCH (08:18)
[2025-01-15] MEDS: THIAMINE 100 MG TAB PO SCH (08:18)
[2025-01-15] MEDS: MULTIVITAMINS, THERA 1 EACH TAB PO SCH (08:18)
[2025-01-15] MEDS: METOPROLOL SUCCINATE (ER) 50 MG TAB.ER.24H PO SCH (08:55)
[2025-01-15 09:43] LABS: Basophils # (A) 0.07 10*3/uL (0.00-0.10); Basophils % (A) 0.9 %; Eosinophils # (A) 0.01 10*3/uL (0.04-0.35); Eosinophils % (A) 0.1 %; HCT 34.5 % (39.6-50.0); HGB 10.8 g/dL (13.0-17.0); Lymphocytes # (A) 1.89 10*3/uL (0.90-5.00); Lymphocytes % (A) 24.7 %; MCH 23.8 pg (27.0-32.0); MCHC 31.3 g/dL (32.0-37.0); MCV 76.2 fL (80.0-97.0); Mean Platelet Volume 9.2 fL (9.5-12.2); Monocytes # (A) 0.72 10*3/uL (0.20-1.00); Monocytes % (A) 9.4 %; Neutrophils # (A) 4.95 10*3/uL (1.80-7.70); Neutrophils % (A) 64.6 %; Platelet Count 323 10*3/uL (140-440); RBC 4.53 10*6/uL (4.40-5.60); RDW 19.5 % (11.5-14.5); WBC 7.66 10*3/uL (4.50-10.00)
--- NOTE | 2025-01-15 09:56 | P.CRDCN ---
History of Present Illness Consult date: 01/15/25 Consult reason: chest pain History of present illness: This is a 49-year-old male patient of Dr. Henao with past medical history of alcohol abuse, inappropriate tachycardia, dyslipidemia, remote history of tobacco use. Patient was last seen in the office on 10/13/2024. At that time patient had no symptoms and he was continued on beta-oj. We have been asked to evaluate the patient for chest pain. Patient states he had chest pain on and off for about 5 minutes while he was eating dinner. He had to take short breaths. No lower extremity edema. He states he is normally quite active and does not experience chest pain with activity. He denies palpitations no syncopal episodes. No lightheadedness or dizziness. He states he is had a little bit of a cough. No sputum production. He quit smoking a member of years ago. He denies history of diabetes. He does have history of stomach ulcer but no recent blood in his stools or dark stools. He denies history of stroke or seizure. He denies abdominal pain. He states he is drinking alcohol most days of the week. Patient has been started on the CIWA protocol. Blood pressure 1 45/91, heart rate 98-120. Pulse ox 98% on room air. -EKG: Sinus tachycardia 115 bpm with no acute ST-T wave changes. -Chest x-ray: No acute findings -CTA chest: No acute pulmonary embolus. No acute process. -Laboratory studies: WBC 7.6, hemoglobin 10.8. Troponin negative x 3. Creatinine 0.86. Serum alcohol 354. Cepheid viral panel not detected. -Home cardiac medications: Not been confirmed but appear to be Toprol XL 50 mg daily, Lasix 40 mg daily. -Echocardiogram performed at [facility] on 09/14/2024 revealed normal LV systolic function, mildly dilated aortic root. -Ambulatory EKG performed 04/09/2022 revealed sinus rhythm with average heart rate 90 bpm ranging from 60-120. Review Of Systems: At the time of my exam: CONSTITUTIONAL: Denies fever or chills. HEENT: Denies blurred vision, vision changes, or eye pain. Denies hemoptysis CARDIOVASCULAR: Denies chest pain. Denies orthopnea. Denies PND. Denies palpitations RESPIRATORY: Denies shortness of breath. GASTROINTESTINAL: Denies abdominal pain. Denies nausea or vomiting. HEMATOLOGIC: Denies bleeding disorders. GENITOURINARY: Denies any blood in urine. SKIN: Denies puritis. Denies rash. Physical examination: Gen: This is a 49-year-old male in no acute distress VS: reviewed HEENT: Head is atraumatic, normocephalic. Pupils equal, round. Sclerae is anicteric. NECK: Supple. No JVD. LUNGS: Clear to auscultation. No wheezes or rhonchi. No intercostal retractions. HEART: Regular rate and rhythm. No murmur. ABDOMEN: Soft No tenderness. EXTREMITIES: No bilateral lower extremity edema. No calf tenderness. NEUROLOGICAL: Patient is awake, alert and oriented x3. Assessment: Atypical chest pain acute coronary syndrome ruled out Acute alcohol intoxication Chronic diastolic heart failure Anemia, chronic History of sinus tachycardia Remote history of tobacco use and dependence History of alcohol abuse Plan: Continue patient's home cardiac medications No need to repeat echocardiogram as this was performed in September No further cardiac workup at this time Patient is cleared for discharge from cardiology perspective. Cardiology will follow on as-needed basis. Please reconsult for any new concerns. At the time of discharge, patient will follow-up in the office with Dr. Tobias Henao in 2 to 3 weeks for outpatient stress testing. Thank you kindly for this consultation. Nurse practitioner note has been reviewed, I agree with documented findings and plan of care. Patient was seen and examined. Past Medical History Past Medical History: Heart Failure, Hypertension, Osteoarthritis (OA), Seizure Disorder Additional Past Medical History / Comment(s): States had Covid, was hospitalized then developed gastritis and sepsis 11/2023, Hx stomach ulcers and esophageal varices, Hx pancreatitis, anemia, last seizure(2022), Hepatitis A diagnosed in [place] History of Any Multi-Drug Resistant Organisms: None Reported Past Surgical History: Back Surgery, Cholecystectomy, Ear Surgery, Orthopedic S urgery Additional Past Surgical History / Comment(s): EGD, colonoscopy, bilateral myringotomies/tubes, C4-C6 cervical fusion(October 2020), left foot surgery X3 Past Anesthesia/Blood Transfusion Reactions: No Reported Reaction, Motion Sickness Additional Past Anesthesia/Blood Transfusion Reaction / Comment(s): No hx. blood transfusion. Past Psychological History: Anxiety, Depression, PTSD Additional Psychological History / Comment(s): . Smoking Status: Former smoker Past Alcohol Use History: Occasional Additional Past Alcohol Use History / Comment(s): Smoked 1/2 ppd, started smoking in 1992, quit smoking 6 weeks ago. Hx of heavy alcohol use, quit approximately 2019, now drinks occasionally. States goes to AA regularly. Past Drug Use History: None Reported Additional Drug Use History / Comment(s): Past use of cocaine and ecstasy in College. - Past Family History Mother Family Medical History: Thyroid Disorder Father Additional Family Medical History / Comment(s): ETOH. Medications and Allergies Home Medications Medication Instructions Recorded Confirmed Type Folic Acid 1 mg PO DAILY 05/18/17 01/02/25 History Cetirizine HCl [Zyrtec] 10 mg PO DAILY 11/18/23 01/02/25 History traZODone HCL [Desyrel] 50 mg PO HS 11/18/23 01/02/25 History Thiamine [Vitamin B-1] 100 mg PO DAILY #30 tab 11/21/23 01/02/25 Rx Baclofen 5 mg PO TID 07/19/24 01/02/25 History Magnesium Oxide [Mag-Ox] 1,200 mg PO BID 07/19/24 01/02/25 History Metoprolol Succinate (ER) [Toprol 50 mg PO DAILY 07/19/24 01/02/25 History XL] Multivitamins, Thera [Multivitamin 1 tab PO DAILY 07/19/24 01/02/25 History (formulary)] Ondansetron Odt [Zofran ODT] 4 mg PO BID PRN 07/19/24 01/02/25 History Omeprazole 40 mg PO BID #60 cap 07/20/24 01/02/25 Rx Gabapentin 600 mg PO TID 09/13/24 01/02/25 History Meloxicam [Mobic] 15 mg PO DAILY 09/13/24 01/02/25 History ALPRAZolam [Xanax] 0.5 mg PO DAILY PRN 01/02/25 01/02/25 History Furosemide [Lasix] 40 mg PO DAILY #30 tab 01/02/25 Rx Allergies Allergy/AdvReac Type Severity Reaction Status Date / Time Penicillins Allergy Rash/Hives Verified 01/14/25 19:44 bupropion [From Wellbutrin] AdvReac seizure Verified 01/14/25 19:44 Physical Exam Vitals: Vital Signs Temp Pulse Pulse Resp BP BP Pulse Ox 01/15/25 07:05 98.4 F 120 H 18 145/91 98 01/15/25 01:41 98.4 F 98 17 145/88 95 01/15/25 00:49 105 H 18 128/90 97 01/14/25 22:00 98.8 F 108 H 16 128/90 96 01/14/25 20:38 111 H 18 126/88 98 01/14/25 19:44 100.9 F H 121 H 20 98 Intake and Output 01/14/25 01/15/25 01/15/25 22:59 06:59 14:59 Other: # Voids 2 Weight 102.058 kg 102.058 kg Results 01/15/25 09:06 01/14/25 20:12 Cardiac Enzymes 01/14/25 01/14/25 01/14/25 Range/Units 20:12 20:12 23:10 AST 95 H (17-59) U/L Troponin I <0.012 <0.012 (0.000-0.034) ng/mL 01/15/25 Range/Units 02:07 AST (17-59) U/L Troponin I <0.012 (0.000-0.034) ng/mL Coagulation 01/14/25 Range/Units 20:12 PT 10.3 (10.0-12.5) sec APTT 22.9 (22.0-30.0) sec CBC 01/14/25 Range/Units 20:12 WBC 6.99 (4.50-10.00) 10*3/uL RBC 4.96 (4.40-5.60) 10*6/uL Hgb 11.7 L (13.0-17.0) g/dL Hct 37.2 L (39.6-50.0) % Plt Count 368 (140-440) 10*3/uL Comprehensive Metabolic Panel 01/14/25 Range/Units 20:12 Sodium 142 (137-145) mmol/L Potassium 3.8 (3.5-5.1) mmol/L Chloride 96 L (98-107) mmol/L Carbon Dioxide 22 (22-30) mmol/L BUN 18 (9-20) mg/dL Creatinine 0.86 (0.66-1.25) mg/dL Glucose 104 H (74-99) mg/dL Calcium 9.7 (8.4-10.2) mg/dL AST 95 H (17-59) U/L ALT 51 H (4-49) U/L Alkaline Phosphatase 90 (38-126) U/L Total Protein 8.9 H (6.3-8.2) g/dL Albumin 5.4 H (3.5-5.0) g/dL Current Medications Generic Name Dose Route Start Last Admin Trade Name Freq PRN Reason Stop Dose Admin Acetaminophen 650 mg 01/15/25 03:00 Acetaminophen Tab 325 Mg Tab PO Q6HR PRN Mild Pain or Fever > 100.5 Al Hydroxide/Mg Hydroxide 15 ml 01/14/25 23:30 Mag Hydrox/Al Hydrox/Simeth 30 Ml Cup PO Q6HR PRN Indigestion Calcium Carbonate/Glycine 1,000 mg 01/14/25 23:30 Calcium Carbonate 500 Mg Chewable PO Q4HR PRN Dyspepsia Enoxaparin Sodium 40 mg 01/15/25 09:00 Enoxaparin 40 Mg/0.4 Ml Syringe SQ DAILY [facility] Famotidine 20 mg 01/15/25 09:00 Famotidine 20 Mg Tab PO BID [facility] Folic Acid 1 mg 01/15/25 09:00 Folic Acid 1 Mg Tab PO DAILY [facility] Ibuprofen 400 mg 01/15/25 02:00 Ibuprofen 400 Mg Tab PO Q6HR PRN Mild Pain or Fever > 100.5 Lorazepam 0.5 mg 01/14/25 22:57 Lorazepam 0.5 Mg Tab PO Q4HR PRN Ciwa 4 To 5 Lorazepam 1 mg 01/14/25 22:57 01/15/25 02:24 Lorazepam 1 Mg Tab PO 1 mg Q4HR PRN Administration Ciwa 6 To 7 Lorazepam 2 mg 01/14/25 22:57 01/15/25 06:56 Lorazepam 1 Mg Tab PO 2 mg Q2HR PRN Administration Ciwa 10 or greater Lorazepam 2 mg 01/14/25 22:57 Lorazepam 1 Mg Tab PO Q3HR PRN Ciwa 8 To 9 Lorazepam 1 mg 01/14/25 22:57 Lorazepam 1 Mg Tab PO Q1HR PRN Alcohol Withdrawal Lorazepam 2 mg 01/14/25 23:03 Lorazepam 1 Mg/0.5 Ml Vial IV Q6HR PRN Seizures Multivitamins 1 each 01/15/25 09:00 Multivitamins, Thera 1 Each Tab PO DAILY [facility] Naloxone HCl 0.2 mg 01/14/25 23:30 Naloxone 0.4 Mg/Ml 1 Ml Vial IV Q2M PRN Opioid Reversal Ondansetron HCl 4 mg 01/14/25 23:30 01/15/25 05:17 Ondansetron 4 Mg/2 Ml Vial IVP 4 mg Q8HR PRN Administration Nausea And Vomiting Thiamine HCl 100 mg 01/15/25 09:00 Thiamine 100 Mg Tab PO DAILY [facility] Intake and Output 01/14/25 01/15/25 01/15/25 22:59 06:59 14:59 Other: # Voids 2 Weight 102.058 kg 102.058 kg 01/14/25 20:12 01/14/25 20:12
[2025-01-15] MEDS: SODIUM CHLORIDE 0.9% 1,000 ML IV SCH (10:05)
[2025-01-15 10:09] LABS: African American GFR (CKD) >90 (>60 ml/min/1.73 sqM); Anion Gap 16 mmol/L; Blood Urea Nitrogen 18 mg/dL (9-20); Calcium 9.1 mg/dL (8.4-10.2); Carbon Dioxide 23 mmol/L (22-30); Chloride 100 mmol/L (98-107); Glucose 104 mg/dL (74-99); Magnesium 1.4 mg/dL (1.6-2.3); Non-African American GFR(CKD) >90 (>60 ml/min/1.73 sqM); Potassium 3.7 mmol/L (3.5-5.1); Sodium 139 mmol/L (137-145)
[2025-01-15 13:48] VITALS: BP 144/88; PULSE 105; RESP 17; TEMP 98.3
[2025-01-15] MEDS: MAGNESIUM SULFATE-D5W PMX 1 GM in DEXTROSE/WATER 1 100ML.BAG IVPB SCH (14:30)
--- NOTE | 2025-01-15 15:31 | P.HPIM ---
History of Present Illness H&P Date: 01/15/25 Patient is a 49-year-old male with heart failure, hypertension, osteoarthritis, history of seizures and alcohol use (history of seizure and alcohol intoxication, no history of DTs, last drink 01/14 around 4pm), anxiety, depression, PTSD here for evaluation of chest pain. Patient reported that they experienced chest pain around 01/14 9 AM with associated shortness of breath while walking and pain has gotten worse all day long. Chest pain is described as chest tightness on the right side with no radiation lasted for 4-5 mins. Denied fever, chills, focal weakness, productive cough, palpitations, dizziness, nausea, vomiting, abdominal pain, extremity swelling, changes in vision, changes in speech, recent trauma or fall. Was last seen on January 02, 2025 for acute heart failure exacerbation and hypomagnesemia. Goes to and has been to rehab 3 times, Intend to quit On admission: Vitals: 100.9 Fahrenheit, [place] 121, RR 20, O2 saturation 98% on room air Labs: WBC 6.9, hemoglobin 11.7, platelet count 396,000, MCV 75, sodium 142, potassium 3.8, chloride 96, bicarb 22, BUN 18, creatinine 0.86, glucose 104, calcium 9.7, magnesium 1.4, AST 95, ALT 51, alk phos 90. Troponins negative. Serum alcohol 354. Cepheid 4 Plex negative. Coagulation panel showed elevated D-dimer at 1.2, PT 10.3, INR 0.9, APTT 22.9. Imaging: Chest x-ray showed no acute cardiopulmonary process. EKG showed sinus tachycardia with a rate of 115 bpm, PVC noted, no ST-T changes, QTc [address] angiography of the chest showed no acute pulmonary embolus or process. ED documentation reviewed. Review of systems: Pertinent positives and negatives as discussed in HPI, a complete review of systems was performed and all other systems are negative. Social history: Tobacco: Former smoker. Quit 1 year ago. Active for 30 years 1/2 ppd. Alcohol: Active heavy drinking for 20 years. Drank a pint of vodka yesterday. Recreational drugs: remote history Travel: none Occupation: unemployed Physical examination: Vital signs reviewed General: non toxic, no distress, appears at stated age, on room air Derm: no unusual rashes/lesions, warm Head: atraumatic, normocephalic, symmetric Eyes: EOMI, anicteric sclera, pupils equal round reactive to light ENT: Nose and ears atraumatic Neck: No cervical lymphadenopathy, trachea midline, supple Mouth: no lip lesion, mucus membranes moist Cardiovascular: S1S2 reg, no murmur Lungs: CTA bilateral, no rhonchi, no rales, no accessory muscle use Abdominal: soft, nondistended, nontender to palpation, no guarding Ext: muscle strength 5 out of 5 in all 4 extremities grossly, no gross muscle atrophy, no contractures, positive dorsalis pedis pulse bilateral, no edema Neuro: CN II-XI grossly intact, no gross focal neuro deficits, tremors of upper extremities noted Psych: Alert and oriented x 3, appropriate affect and mood Assessment/Plan: The patient is admitted with an anticipated less than 2 midnight stay for evaluation of atypical chest pain and alcohol intoxication Active: #. Atypical Chest pain, likely non-cardac, r/o ACS #. Sinus tachycardia EKG showed sinus tachycardia with a rate of 115 bpm, PVC noted, no ST-T changes, QTc 298 MS. Chest pain possibly from gastritis CT angiography of the chest showed no acute pulmonary embolus or process Patient currently hemodynamically stable at this time of evaluation Cardiac monitoring Supplemental oxygen as needed Heart healthy diet Tropinins negative when treneded EKG as needed Given aspirin 325 mg once in the ED Continue with aspirin 81 mg daily Cardiology consulted #. Alcohol intoxication, impending withdrawal #. Elevated transaminases likely due to above #. History of seizures due to alchol use disorder 2 L bolus given in the ED Ativan per CIWA protocol Continue with IVF judiciously due to history of heart failure Continue with folic acid and thiamine p.o. supplementation Encourage oral intake for rehydration #. Hypomagnesemia Given 1 g magnesium sulfate IV in the ED Check mag. If low will replete #. Microcytic anemia likley due to malnutrition Hemoglobin 11, MCV 75 Continue with Folic acid and Thiamine supplementation Monitor CBC Chronic Conditions: #. Diastolic Heart failure, not in exacerbation #. Hypertension #. Osteoarthritis #. Anxiety #. Depression #. PTSD Resume home meds once reconciled DVT ppx: Lovenox 40 mg subcu daily GI prophylaxis: Protonix 40 mg p.o. twice daily CODE STATUS: Full Discussed with: Patient Anticipated discharge place: Home Sandra Sorenson MD PGY-1 Internal Medicine Dictation was produced using [employer] dictation software. please excuse any grammatical, word or spelling errors. Past Medical History Past Medical History: Heart Failure, Hypertension, Osteoarthritis (OA), Seizure Disorder Additional Past Medical History / Comment(s): States had Covid, was hospitalized then developed gastritis and sepsis 11/2023, Hx stomach ulcers and esophageal varices, Hx pancreatitis, anemia, last seizure(2022), Hepatitis A diagnosed in [employer] History of Any Multi-Drug Resistant Organisms: None Reported Past Surgical History: Back Surgery, Cholecystectomy, Ear Surgery, Orthopedic Surgery Additional Past Surgical History / Comment(s): EGD, colonoscopy, bilateral myringotomies/tubes, C4-C6 cervical fusion(October 2020), left foot surgery X3 Past Anesthesia/Blood Transfusion Reactions: No Reported Reaction, Motion Sickne ss Additional Past Anesthesia/Blood Transfusion Reaction / Comment(s): No hx. blood transfusion. Past Psychological History: Anxiety, Depression, PTSD Additional Psychological History / Comment(s): . Smoking Status: Former smoker Past Alcohol Use History: Occasional Additional Past Alcohol Use History / Comment(s): Smoked 1/2 ppd, started smoking in 1992, quit smoking 6 weeks ago. Hx of heavy alcohol use, quit approximately 2019, now drinks occasionally. States goes to AA regularly. Past Drug Use History: None Reported Additional Drug Use History / Comment(s): Past use of cocaine and ecstasy in College. - Past Family History Mother Family Medical History: Thyroid Disorder Father Additional Family Medical History / Comment(s): ETOH. Medications and Allergies Home Medications Medication Instructions Recorded Confirmed Type Folic Acid 1 mg PO DAILY 05/18/17 01/15/25 History Cetirizine HCl [Zyrtec] 10 mg PO DAILY 11/18/23 01/15/25 History traZODone HCL [Desyrel] 50 mg PO HS 11/18/23 01/15/25 History Thiamine [Vitamin B-1] 100 mg PO DAILY #30 tab 11/21/23 01/15/25 Rx Baclofen 5 mg PO TID 07/19/24 01/15/25 History Magnesium Oxide [Mag-Ox] 1,200 mg PO BID 07/19/24 01/15/25 History Metoprolol Succinate (ER) [Toprol 50 mg PO DAILY 07/19/24 01/15/25 History XL] Multivitamins, Thera [Multivitamin 1 tab PO DAILY 07/19/24 01/15/25 History (formulary)] Ondansetron Odt [Zofran ODT] 4 mg PO BID PRN 07/19/24 01/15/25 History Omeprazole 40 mg PO BID #60 cap 07/20/24 01/15/25 Rx Gabapentin 600 mg PO TID 09/13/24 01/15/25 History Meloxicam [Mobic] 15 mg PO DAILY 09/13/24 01/15/25 History ALPRAZolam [Xanax] 0.5 mg PO DAILY PRN 01/02/25 01/15/25 History Furosemide [Lasix] 40 mg PO DAILY #30 tab 01/02/25 01/15/25 Rx Allergies Allergy/AdvReac Type Severity Reaction Status Date / Time Penicillins Allergy Rash/Hives Verified 01/15/25 11:42 bupropion [From Wellbutrin] AdvReac seizure Verified 01/15/25 11:42 Physical Exam Vitals: Vital Signs Temp Pulse Pulse Resp BP BP Pulse Ox 01/15/25 07:05 98.4 F 120 H 18 145/91 98 01/15/25 01:41 98.4 F 98 17 145/88 95 01/15/25 00:49 105 H 18 128/90 97 01/14/25 22:00 98.8 F 108 H 16 128/90 96 01/14/25 20:38 111 H 18 126/88 98 01/14/25 19:44 100.9 F H 121 H 20 98 Intake and Output 01/14/25 01/15/25 01/15/25 22:59 06:59 14:59 Other: # Voids 2 Weight 102.058 kg 102.058 kg Results CBC & Chem 7: 01/15/25 09:06 01/15/25 09:06 Labs: Abnormal Lab Results - Last 24 Hours (Table) 01/14/25 01/14/25 01/14/25 Range/Units 20:12 20:12 20:12 Hgb 11.7 L (13.0-17.0) g/dL Hct 37.2 L (39.6-50.0) % MCV 75.0 L (80.0-97.0) fL MCH 23.6 L (27.0-32.0) pg MCHC 31.5 L (32.0-37.0) g/dL MPV 8.8 L (9.5-12.2) fL D-Dimer 1.20 H (<0.60) mg/L FEU Chloride 96 L (98-107) mmol/L Glucose 104 H (74-99) mg/dL Magnesium 1.4 L (1.6-2.3) mg/dL AST 95 H (17-59) U/L ALT 51 H (4-49) U/L Total Protein 8.9 H (6.3-8.2) g/dL Albumin 5.4 H (3.5-5.0) g/dL Serum Alcohol 354 H* mg/dL
--- NOTE | 2025-01-15 17:24 | P.DS ---
Providers Date of admission: 01/14/25 23:30 Attending physician: Nichelle Martinez MD Consults: 01/14/25 23:30 Consult Physician Urgent Consulting Provider: [facility] Consult Reason/Comments: Chest pain Do you want consulting provider notified?: Yes, Notify in am Primary care physician: Landry Lacey [facility] Course: Hospital Course: Patient is a 49-year-old male with heart failure, hypertension, osteoarthritis, history of seizures and alcohol use (history of seizure and alcohol intoxication, no history of DTs, last drink 01/14 around 4pm), anxiety, depression, PTSD here for evaluation of chest pain. Patient reported that they experienced chest pain around 01/14 9 AM with associated shortness of breath while walking and pain has gotten worse all day long. Chest pain is described as chest tightness on the right side with no radiation lasted for 4-5 mins. Denied fever, chills, focal weakness, productive cough, palpitations, dizziness, nausea, vomiting, abdominal pain, extremity swelling, changes in vision, changes in speech, recent trauma or fall. Was last seen on January 02, 2025 for acute heart failure exacerbation and hypomagnesemia. Goes to AA meetings and has been to [facility] 3 times, he says he intends to quit. On admission: Vitals: 100.9 Fahrenheit, [place] 121, RR 20, O2 saturation 98% on room air Labs: WBC 6.9, hemoglobin 11.7, platelet count 396,000, MCV 75, sodium 142, potassium 3.8, chloride 96, bicarb 22, BUN 18, creatinine 0.86, glucose 104, calcium 9.7, magnesium 1.4, AST 95, ALT 51, alk phos 90. Troponins negative. Serum alcohol 354. Cepheid 4 Plex negative. Coagulation panel showed elevated D-dimer at 1.2, PT 10.3, INR 0.9, APTT 22.9. Imaging: Chest x-ray showed no acute cardiopulmonary process. EKG showed sinus tachycardia with a rate of 115 bpm, PVC noted, no ST-T changes, QTc [address] angiography of the chest showed no acute pulmonary embolus or process. Patient was admitted for evaluation of atypical chest pain with sinus tachycardia and alcohol intoxication. Ativan per [facility] protocol, IV fluids, folic acid and thiamine supplementation, high-dose aspirin, trending troponins were ordered. Cardiology consulted. Required 4 mg IV Ativan overnight. Found to have hypomagnesemia on admission and repleted with IV magnesium. Patient's symptoms improved throughout hospital stay. Patient had no new complications. Cardiology cleared patient for discharge today. Patient is advised to resume all home medications. He is to follow-up with cardiology on outpatient basis. Also advised to continue to work on alcohol intake cessation. Final Diagnosis: #. Atypical Chest pain, likely gastritis, ACS ruled out #. Sinus tachycardia #. Alcohol intoxication, impending withdrawal #. Elevated transaminases likely due to above, stable #. History of seizures due to alchol use disorder #. Hypomagnesemia #. Microcytic anemia likley due to malnutrition, stable #. Diastolic Heart failure, not in exacerbation #. Hypertension #. Osteoarthritis #. Anxiety #. Depression #. PTSD Physical examination: Vital signs reviewed General: non toxic, no distress Derm: no unusual rashes/lesions, warm Head: atraumatic, normocephalic, symmetric Eyes: EOMI, anicteric sclera, pupils equal round reactive to light ENT: Nose and ears atraumatic Neck: No cervical lymphadenopathy, trachea midline, supple Mouth: no lip lesion, mucus membranes moist Cardiovascular: S1S2 reg, no murmur Lungs: CTA bilateral, no rhonchi, no rales, no accessory muscle use Abdominal: soft, nondistended, nontender to palpation, no guarding Ext: muscle strength 5 out of 5 in all 4 extremities grossly, no gross muscle atrophy, no contractures, positive dorsalis pedis pulse bilateral, no edema Neuro: CN II-XI grossly intact, no gross focal neuro deficits Psych: Alert, oriented, appropriate affect and mood Patient Condition at Discharge: Stable Plan - Discharge Summary New Discharge Prescriptions: Continue Folic Acid 1 mg PO DAILY Thiamine [Vitamin B-1] 100 mg PO DAILY #30 tab Baclofen 5 mg PO TID Metoprolol Succinate (ER) [Toprol XL] 50 mg PO DAILY Multivitamins, Thera [Multivitamin (formulary)] 1 tab PO DAILY Magnesium Oxide [Mag-Ox] 1,200 mg PO BID Omeprazole 40 mg PO BID #60 cap traZODone HCL [Desyrel] 50 mg PO HS Cetirizine HCl [Zyrtec] 10 mg PO DAILY Ondansetron Odt [Zofran ODT] 4 mg PO BID PRN PRN Reason: Nausea And Vomiting Meloxicam [Mobic] 15 mg PO DAILY Gabapentin 600 mg PO TID ALPRAZolam [Xanax] 0.5 mg PO DAILY PRN PRN Reason: Anxiety Furosemide [Lasix] 40 mg PO DAILY #30 tab Discharge Medication List Folic Acid 1 mg PO DAILY 05/18/17 [History] Cetirizine HCl [Zyrtec] 10 mg PO DAILY 11/18/23 [History] traZODone HCL [Desyrel] 50 mg PO HS 11/18/23 [History] Thiamine [Vitamin B-1] 100 mg PO DAILY #30 tab 11/21/23 [Rx] Baclofen 5 mg PO TID 07/19/24 [History] Magnesium Oxide [Mag-Ox] 1,200 mg PO BID 07/19/24 [History] Metoprolol Succinate (ER) [Toprol XL] 50 mg PO DAILY 07/19/24 [History] Multivitamins, Thera [Multivitamin (formulary)] 1 tab PO DAILY 07/19/24 [History] Ondansetron Odt [Zofran ODT] 4 mg PO BID PRN 07/19/24 [History] Omeprazole 40 mg PO BID #60 cap 07/20/24 [Rx] Gabapentin 600 mg PO TID 09/13/24 [History] Meloxicam [Mobic] 15 mg PO DAILY 09/13/24 [History] ALPRAZolam [Xanax] 0.5 mg PO DAILY PRN 01/02/25 [History] Furosemide [Lasix] 40 mg PO DAILY #30 tab 01/02/25 [Rx] Follow up Appointment(s)/Referral(s): Scott Henao MD [STAFF PHYSICIAN] - 1 Week Landry Lacey DO [Primary Care Provider] - 1-2 days Discharge/Stand Alone Forms: AA Meetings [place], [facility], Outpatient Counseling, In Substance Abuse Facilities Discharge Disposition: HOME SELF-CARE
== END 2025-01-15 18:02 | disposition home or self-care (01) ==
LOC: EC 19:36 → 6NMEDSUR 23:30
PROVIDERS: ADMIT Internal Medicine; ATTEND Internal Medicine
DX: R07.89 Other chest pain (principal); F10.229 Alcohol dependence with intoxication, unspecified; F10.239 Alcohol dependence with withdrawal, unspecified; E83.42 Hypomagnesemia; I11.0 Hypertensive heart disease with heart failure; I50.32 Chronic diastolic (congestive) heart failure; I47.11 Inappropriate sinus tachycardia, so stated; R79.89 Other specified abnormal findings of blood chemistry; Y90.8 Blood alcohol level of 240 mg/100 ml or more; M19.90 Unspecified osteoarthritis, unspecified site; D50.9 Iron deficiency anemia, unspecified; I77.810 Thoracic aortic ectasia; R50.9 Fever, unspecified; R05.9 Cough, unspecified; F32.A Depression, unspecified; F41.9 Anxiety disorder, unspecified; F43.10 Post-traumatic stress disorder, unspecified; Z79.1 Long term (current) use of non-steroidal anti-inflammatories (NSAID); Z79.899 Other long term (current) drug therapy; Z88.0 Allergy status to penicillin; Z88.8 Allergy status to other drugs, medicaments and biological substances; Z11.52 Encounter for screening for COVID-19; Z11.59 Encounter for screening for other viral diseases; Z87.891 Personal history of nicotine dependence; Z87.11 Personal history of peptic ulcer disease; Z86.69 Personal history of other diseases of the nervous system and sense organs
CPT/HCPCS: 96361 ×2; 96366 ×2; 96372 ×2; 96375 ×2; 96365; 99285; 36415; 94760; 93005 ×2; 85379; 83880; 80053; 80048; 83735 ×2; 84484 ×2; 85025 ×2; 85610; 85730; 87040; 80320; 87636; 71046; 71275; G0378 ×2; J2060; J3411; J2405; J1650; J0696; J3475 ×2; J1885; Q9967

== ENCOUNTER 2025-01-23 22:26 | Emergency (ER) | payer MEDICARE ==
--- NOTE | 2025-01-23 22:36 | ED ---
Chest Pain HPI - General Source: patient, RN notes reviewed Mode of arrival: ambulatory Limitations: no limitations - History of Present Illness MD Complaint: chest pain Onset/Timin -: days(s) Onset: during rest Pain Location: substernal Pain Radiation: none Severity scale (1-10): 3 Quality: sharp Consistency: intermittent Improves With: nothing Worsens With: nothing Anginal Symptoms: nausea, vomiting, dyspnea Other Symptoms: burping Treatments Prior to Arrival: none <Balaji Russell - Last Filed: 01/23/25 23:23> <Basilia Guerrero - Last Filed: 01/24/25 02:21> - General Stated Complaint: weakness NVD Time Seen by Provider: 01/23/25 22:44 - History of Present Illness Initial Comments: Quick note: This is a 49-year-old male with history including heart failure, hypertension, seizure disorder and cholecystectomy presenting for chest pain starting this morning. Patient endorses mid chest pain (3/10) described as sharp, nonradiating and intermittent with associated dyspnea, upper abdominal pain and nausea/vomiting/diarrhea. Patient also mentions tremors, dizziness/lightheadedness and weakness. Patient denies history of AMI or AAA. Denies fever, pleuritic chest pain, diaphoresis, hemoptysis, hematemesis. (Balaji Russell) - Related Data Home Medications Medication Instructions Recorded Confirmed Folic Acid 1 mg PO DAILY 05/18/17 01/15/25 Cetirizine HCl [Zyrtec] 10 mg PO DAILY 11/18/23 01/15/25 traZODone HCL [Desyrel] 50 mg PO HS 11/18/23 01/15/25 Baclofen 5 mg PO TID 07/19/24 01/15/25 Magnesium Oxide [Mag-Ox] 1,200 mg PO BID 07/19/24 01/15/25 Metoprolol Succinate (ER) [Toprol 50 mg PO DAILY 07/19/24 01/15/25 XL] Multivitamins, Thera [Multivitamin 1 tab PO DAILY 07/19/24 01/15/25 (formulary)] Ondansetron Odt [Zofran ODT] 4 mg PO BID PRN 07/19/24 01/15/25 Gabapentin 600 mg PO TID 09/13/24 01/15/25 Meloxicam [Mobic] 15 mg PO DAILY 09/13/24 01/15/25 ALPRAZolam [Xanax] 0.5 mg PO DAILY PRN 01/02/25 01/15/25 Previous Rx's Medication Instructions Recorded Thiamine [Vitamin B-1] 100 mg PO DAILY #30 tab 11/21/23 Omeprazole 40 mg PO BID #60 cap 07/20/24 Furosemide [Lasix] 40 mg PO DAILY #30 tab 01/02/25 Allergies Allergy/AdvReac Type Severity Reaction Status Date / Time Penicillins Allergy Rash/Hives Verified 01/23/25 22:42 bupropion [From Wellbutrin] AdvReac seizure Verified 01/23/25 22:42 Review of Systems ROS Other: All systems not noted in ROS Statement are negative. <Balaji Russell - Last Filed: 01/23/25 23:23> ROS Other: All systems not noted in ROS Statement are negative. <Basilia Guerrero - Last Filed: 01/24/25 02:21> ROS Statement: Those systems with pertinent positive or pertinent negative responses have been documented in the HPI. Past Medical History Past Medical History: Heart Failure, Hypertension, Osteoarthritis (OA), Seizure Disorder Additional Past Medical History / Comment(s): States had Covid, was hospitalized then developed gastritis and sepsis 11/2023, Hx stomach ulcers and esophageal varices, Hx pancreatitis, anemia, last seizure(2022), Hepatitis A diagnosed in [place] History of Any Multi-Drug Resistant Organisms: None Reported Past Surgical History: Back Surgery, Cholecystectomy, Ear Surgery, Orthopedic Surgery Additional Past Surgical History / Comment(s): EGD, colonoscopy, bilateral myringotomies/tubes, C4-C6 cervical fusion(October 2020), left foot surgery X3 Past Anesthesia/Blood Transfusion Reactions: No Reported Reaction, Motion Sickness Additional Past Anesthesia/Blood Transfusion Reaction / Comment(s): No hx. blood transfusion. Past Psychological History: Anxiety, Depression, PTSD Additional Psychological History / Comment(s): . Smoking Status: Former smoker Past Alcohol Use History: Occasional Additional Past Alcohol Use History / Comment(s): Smoked 1/2 ppd, started smoking in 1992, quit smoking 6 weeks ago. Hx of heavy alcohol use, quit approximately 2019, now drinks occasionally. States goes to AA regularly. Past Drug Use History: None Reported Additional Drug Use History / Comment(s): Past use of cocaine and ecstasy in College. - Past Family History Mother Family Medical History: Thyroid Disorder Father Additional Family Medical History / Comment(s): ETOH. <Balaji Russell - Last Filed: 01/23/25 23:23> General Exam Limitations: no limitations General appearance: alert, anxious, in distress, other (Patient is occasionally belching with tremors/chills) Head exam: Present: atraumatic, normocephalic, normal inspection Eye exam: Present: normal appearance, PERRL, EOMI. Absent: scleral icterus, conjunctival injection, periorbital swelling ENT exam: Present: normal exam, mucous membranes moist Neck exam: Present: normal inspection. Absent: tenderness, meningismus, lymphadenopathy Respiratory exam: Present: normal lung sounds bilaterally. Absent: respiratory distress, wheezes, rales, rhonchi, stridor, accessory muscle use, decreased breath sounds, prolonged expiratory Cardiovascular Exam: Present: regular rate, normal rhythm, normal heart sounds. Absent: systolic murmur, diastolic murmur, rubs, gallop, clicks GI/Abdominal exam: Present: soft, tenderness (Positive epigastric, LUQ TTP and diffuse tympanic TTP), diminished bowel sounds, hypoactive bowel sounds. Absent: distended, guarding, rebound, rigid Extremities exam: Present: normal inspection, full ROM, normal capillary refill, other (Bilateral posterior tibialis pulse +1). Absent: tenderness, pedal edema, joint swelling, calf tenderness Back exam: Present: normal inspection Neurological exam: Present: alert, oriented X3, CN II-XII intact Psychiatric exam: Present: normal affect, normal mood Skin exam: Present: warm, dry, intact, normal color. Absent: rash <Balaji Russell - Last Filed: 01/23/25 23:23> <Basilia Guerrero - Last Filed: 01/24/25 02:21> - General Exam Comments Initial Comments: PE: CONSTITUTIONAL: [no apparent distress, mildly ill appearing] SKIN: [warm, dry, no jaundice, hives or petechiae] EYES:[ pupils are equally round, extraocular movements intact without nystagmus, clear conjunctiva, non-icteric sclera] HENT: [normocephalic, atraumatic, moist mucus membranes, oropharynx clear without exudates] NECK: , [Full range of motion, normal appearance] PULMONARY: [clear to auscultation without wheezes, rhonchi, or rales, normal excursion, no accessory muscle use and no stridor] CARDIOVASCULAR:[ regular rate, rhythm, normal S1 and S2. No appreciated murmurs, rubs or gallops. Strong radial pulses with intact distal perfusion. No lower extremity edema] GASTROINTESTINAL: [soft, active bowel sounds throughout, RUQ TTP, non-distended, no rebound + Guarding with palpation of RUQ, No hepatosplenomegaly] GENITOURINARY: MUSCULOSKELETAL: [Extremities have no gross deformity, no edema, redness, or swelling. No calf swelling ] NEUROLOGIC: [_a/o x 3, GCS 15, normal mentation and speech. Moves all extremities x 4 without motor or sensory deficit] PSYCHIATRIC:[ _normal mood and affect, thought process is clear and linear] (Basilia Guerrero) Course Vital Signs 01/23/25 01/24/25 22:39 00:29 Temperature 97.8 F Pulse Rate 138 H 137 H Respiratory 22 24 Rate Blood Pressure 145/94 155/110 O2 Sat by Pulse 100 98 Oximetry Chest Pain MDM <Balaji Russell - Last Filed: 01/23/25 23:23> <Basilia Guerrero - Last Filed: 01/24/25 02:21> - MDM Was pt. sent in by a medical professional or institution ([facility], DESIGNER/WRITER, urgent care, hospital, or alf...) When possible be specific @ -[No] Did you speak to anyone other than the patient for history (EMS, parent, family, police, friend...)? What history was obtained from this source @ -[No] Did you review nursing and triage notes (agree or disagree)? Why? @ -[I reviewed and agree with nursing and triage notes] Were old charts reviewed (outside hosp., previous admission, EMS record, old EKG, old radiological studies, urgent care reports/EKG's, alf records)? Report findings @ -[No old charts were reviewed] Differential Diagnosis (chest pain, altered mental status, abdominal pain women, abdominal pain men, vaginal bleeding, weakness, fever, dyspnea, syncope, headache, dizziness, GI bleed, back pain, seizure, CVA, palpatations, mental health, musculoskeletal)? @ -Differential Chest Pain: Stable Angina, Unstable Angina, STEMI, NSTEMI Aortic Dissection, Pneumothorax, Musculoskeletal, Esophageal Spasm GERD, Cholecystitis, Pancreatitis, Zoster, this is not meant to be an all-inclusive list. Differential Abdominal Pain Men: Appendicitis, cholecystitis, diverticulosis, ischemic bowel, pancreatitis, hepatitis, UTI, gastroenteritis, AAA, incarcerated hernia, bowel obstruction, constipation, inflammatory bowel, hepatitis, peptic ulcer disease, splenic infarction, perforated viscus, testicular torsion, this is not meant to be an all-inclusive list EKG interpreted by me (3pts min.). @ -Sinus tachycardia without ST deviation or T wave inversion. Ventricular rate 137 bpm, CAITLIN 128 ms, QRS 89 ms, QTc 380 ms. X-rays interpreted by me (1pt min.). @ -[None done] CT interpreted by me (1pt min.). @ -[None done] U/S interpreted by me (1pt. min.). @ -[None done] What testing was considered but not performed or refused? (CT, X-rays, U/S, labs)? Why? @ -[None] What meds were considered but not given or refused? Why? @ -[None] Did you discuss the management of the patient with other professionals (professionals i.e. , PA, DESIGNER/WRITER, lab, RT, psych nurse, social media executive, tow driver, teacher, mail officer, returned case inspector)? Give summary @ -[No] Was smoking cessation discussed for >3mins.? @ -[No] Was critical care preformed (if so, how long)? @ -[No] Were there social determinants of health that impacted care today? How? (Homelessness, low income, unemployed, alcoholism, drug addiction, transportation, low edu. Level, literacy, decrease access to med. care, half-way, rehab)? @ -[No] Was there de-escalation of care discussed even if they declined (Discuss DNR or withdrawal of care, Hospice)? DNR status @ -[No] What co-morbidities impacted this encounter? (DM, HTN, Smoking, COPD, CAD, Cancer, CVA, ARF, Chemo, Hep., AIDS, mental health diagnosis, sleep apnea, morbid obesity)? @ -[None] Was patient admitted / discharged? Hospital course, mention meds given and route, prescriptions, significant lab abnormalities, going to OR and other pertinent info. @ -[hospital course] Undiagnosed new problem with uncertain prognosis? @ -[No] Drug Therapy requiring intensive monitoring for toxicity (Heparin, Nitro, Insulin, Cardizem)? @ -[No] Were any procedures done? @ -[No] Diagnosis/symptom? @ -[default] Acute, or Chronic, or Acute on Chronic? @ -Acute Uncomplicated (without systemic symptoms) or Complicated (systemic symptoms)? @ -Complicated Side effects of treatment? @ -[No] Exacerbation, Progression, or Severe Exacerbation? @ -[No] Poses a threat to life or bodily function? How? (Chest pain, [place], [place], pneumonia, PE, COPD, DKA, ARF, appy, cholecystitis, CVA, Diverticulitis, Homicidal, Suicidal, threat to staff... and all critical care pts) @ -[No] (Balaji Russell) Was patient admitted / discharged? Hospital course, mention meds given and route, prescriptions, significant lab abnormalities, going to OR and other pertinent info. @Patient signed out to myself by off-going [facility]. Briefly patient is a 49 old gentleman presenting today for right sided chest tightness, rater quadrant pain and multiple episodes of dark red-brown emesis. Patient denies NSAID use, is not on blood thinners. He states he is still drinking last drink was 2 days ago. Patient is nonspecific about how much he drinks every day. Chest pain is described as chest tightness. States he is unable to describe his right upper quadrant pain. Patient is mildly tremulous on exam and tachycardic. Ordered additional IV fluids, 1 mg Ativan, morphine. Due to his chest pain, patient had received aspirin upon arrival from [facility]. Further NSAIDS will be held. Additional 40 mg IV protonix ordered out of concern for upper GI Bleed. Emesis at bedside is rust colored. This will be sent for occult blood testing. Though CT abdomen/pelvis was ordered, pt's pain is focused in the RUQ, and total bilirubin is slightly elevated at 2.1, so this was cancelled and US RUQ was ordered. I do ultimately anticipate transfer to [facility] for gastroenterology consultation out of concern for upper GI bleed. Reviewed patient's labs, his hemoglobin is stable at 11.7, however has mild hyponatremia, sodium 130, potassium is 5.2, anion gap of 37, with a lactic of 3.8 suspect is secondary to alcohol ketoacidosis given his history of alcoholism, blood glucose was 143, T. bili 2.1, AST/ALT 145/61 I suspect liver enzyme elevation is secondary to alcohol abuse however T. bili has not been this elevated in the past will obtain ultrasound of the right upper quadrant. Lipase 243. Pt did remain tachycardic on my reassessment. BP 141/101. Pain improved. Pt did have another episode of rust colored emesis mixed with clear bile, basin at bedside. Discussed with patient plan for transfer to [facility]. He was agreeable. Ultrasound did show dilated common bile duct of 0.71. Suspect post surgical changes from prior kathy vs choledocolithiasis. Case was discussed with Dr. Dill, [facility], who kindly accepted pt for transfer. Recommends octreotide 50 mg bolus and infusion. This was subsequently ordered. Undiagnosed new problem with uncertain prognosis? @ -[No] Drug Therapy requiring intensive monitoring for toxicity (Heparin, Nitro, Insulin, Cardizem)? @ -[No] Were any procedures done? @ -[No] Diagnosis/symptom? Upper GI bleed, hypomagnesemia Acute, or Chronic, or Acute on Chronic? @ -Acute Uncomplicated (without systemic symptoms) or Complicated (systemic symptoms)? @ -Complicated Side effects of treatment? @ -[No] Exacerbation, Progression, or Severe Exacerbation? @ -[No] Poses a threat to life or bodily function? How? (Chest pain, [place], [place], pneumonia, PE, COPD, DKA, ARF, appy, cholecystitis, CVA, Diverticulitis, Homicidal, Suicidal, threat to staff... and all critical care pts) @Yes (Basilia Guerrero) Disposition <Balaji Russell - Last Filed: 01/23/25 23:23> - Out of Hospital Transfer - Req. Specs Out of Hospital Transfer - Requested Specifics: Other Emergency Center ([facility]) <Basilia Guerrero - Last Filed: 01/24/25 02:21> Clinical Impression: Upper GI bleed, Hypomagnesemia, Alcohol withdrawal Disposition: OTHER INSTITUTION NOT DEFINED Condition: Stable Referrals: Landry Lacey DO [Primary Care Provider] - 1-2 days
[2025-01-23 22:42] VITALS: TEMP 97.8
[2025-01-24] MEDS: ASPIRIN 81 MG PO STA (00:04)
[2025-01-24] MEDS: PANTOPRAZOLE 40 MG/10 ML VIAL IVP STA ×2 (00:05→01:51)
[2025-01-24] MEDS: ONDANSETRON 4 MG/2 ML VIAL IVP STA ×2 (00:06→01:07)
[2025-01-24] MEDS: FAMOTIDINE 20 MG/2 ML VIAL IV STA (00:07)
[2025-01-24] MEDS: SODIUM CHLORIDE 0.9% 1,000 ML IV STA (00:08)
[2025-01-24] MEDS: LIDOCAINE VISCOUS 2% 15 ML CUP PO ONE (00:27)
[2025-01-24 00:35] LABS: Basophils # (A) 0.03 10*3/uL (0.00-0.10); Basophils % (A) 0.2 %; HCT 37.7 % (39.6-50.0); HGB 11.7 g/dL (13.0-17.0); Lymphocytes % (A) 8.2 %; MCH 23.7 pg (27.0-32.0); MCV 76.3 fL (80.0-97.0); Mean Platelet Volume 10.6 fL (9.5-12.2); Monocytes # (A) 0.93 10*3/uL (0.20-1.00); Monocytes % (A) 7.6 %; Neutrophils # (A) 10.19 10*3/uL (1.80-7.70); Neutrophils % (A) 83.6 %; Platelet Count 214 10*3/uL (140-440); RBC 4.94 10*6/uL (4.40-5.60); RDW 19.1 % (11.5-14.5)
[2025-01-24 00:52] LABS: ALT 61 U/L (4-49); AST 145 U/L (17-59); African American GFR (CKD) >90 (>60 ml/min/1.73 sqM); Albumin 5.6 g/dL (3.5-5.0); Alkaline Phosphatase 121 U/L (38-126); Anion Gap 37 mmol/L; Blood Urea Nitrogen 15 mg/dL (9-20); Calcium 9.8 mg/dL (8.4-10.2); Chloride 88 mmol/L (98-107); Glucose 143 mg/dL (74-99); Lipase 243 U/L (23-300); Non-African American GFR(CKD) >90 (>60 ml/min/1.73 sqM); Potassium 5.2 mmol/L (3.5-5.1); Sodium 130 mmol/L (137-145); Total Bilirubin 2.1 mg/dL (0.2-1.3); Total Protein 8.8 g/dL (6.3-8.2)
[2025-01-24 00:58] LABS: NT-Pro-B-Type Natriuretic Pept 76 pg/mL
[2025-01-24] MEDS: MORPHINE SULFATE 4 MG/ML SYRINGE IVP STA (01:06)
[2025-01-24 01:09] LABS: Carbon Dioxide 5 mmol/L (22-30); Magnesium 0.8 mg/dL (1.6-2.3)
[2025-01-24] MEDS: LORazepam 1 MG/0.5 ML VIAL IV STA (01:55)
[2025-01-24] MEDS ORDERED: LORazepam 1 MG/0.5 ML VIAL IV STA (02:17)
[2025-01-24 02:19] LABS: INR 1.1 (<1.2); Prothrombin Time 11.5 sec (10.0-12.5)
[2025-01-24] MEDS: MAGNESIUM SULFATE-D5W PMX 1 GM in DEXTROSE/WATER 1 100ML.BAG IVPB SCH (02:36)
[2025-01-24] MEDS: SODIUM CHLORIDE 0.9% 1,000 ML IV ONE (02:39)
[2025-01-24 02:40] LABS: Partial Thromboplastin Time 17.8 sec (22.0-30.0)
[2025-01-24] MEDS: OCTREOTIDE 100 MCG/ML INJ IVP ONE (02:40)
[2025-01-24] MEDS: OCTREOTIDE 500 MCG in SODIUM CHLORIDE 0.9% 250 ML IV ONE (02:42)
[2025-01-24 02:57] VITALS: BP 141/103; PULSE 111; RESP 22
--- NOTE | 2025-01-24 03:53 | US ---
EXAM: US Abdomen Limited, Gallbladder CLINICAL HISTORY: RUQ pain, elevated t bili. Status post cholecystectomy. TECHNIQUE: Real-time ultrasound of the right upper quadrant with image documentation. COMPARISON: Complete abdominal ultrasound 09/14/2024 FINDINGS: Liver: The liver is hyperechoic, measuring 16.3 cm. Gallbladder: The gallbladder is not identified, consistent with previous cholecystectomy. Common bile duct: The common bile duct measures up to 7.1 mm. This previously measured 4 mm. No stones. No dilation. Pancreas: Unremarkable as visualized. Right kidney: The right kidney measures 10.1 x 5.3 x 4.7 cm. 5 mm nonobstructive nephrolithiasis in the inferior pole of the right kidney. Free fluid: No free fluid. IMPRESSION: Status post cholecystectomy. The common bile duct measures up to 7.1 mm. This previously measured 4 mm. Please correlate with bilirubin levels. No intrahepatic biliary dilatation.
--- NOTE | 2025-01-24 04:16 | XR ---
EXAM: XR Chest, 1 View CLINICAL HISTORY: Chest Pain TECHNIQUE: Frontal view of the chest. COMPARISON: CTA chest 01/14/2025 FINDINGS: Lungs: Shallow inspiration. No focal consolidation. The pulmonary vasculature demonstrates no significant radiographic abnormality. Pleural space: Unremarkable. No pneumothorax. No large pleural effusion. Heart: Unremarkable. No cardiomegaly. Mediastinum: No significant abnormality identified. The trachea is midline. Bones/joints: Postsurgical changes consistent with anterior fusion involving the inferior cervical spine. No acute osseous abnormality. IMPRESSION: No focal consolidation or acute cardiopulmonary process identified.
== END 2025-01-24 04:07 | disposition other institution (70) ==
LOC: EC 22:26
DX: K92.2 Gastrointestinal hemorrhage, unspecified (principal); E83.42 Hypomagnesemia; F10.939 Alcohol use, unspecified with withdrawal, unspecified; Z87.891 Personal history of nicotine dependence; Z88.0 Allergy status to penicillin; Z88.8 Allergy status to other drugs, medicaments and biological substances
CPT/HCPCS: 36415; 71045; 76705; 80053; 83605; 83690; 83735; 83880; 84484; 85025; 85610; 85730; 93005; 96361; 96365; 96366; 96368; 96375; 96376; 99285

== ENCOUNTER 2025-02-07 13:02 | Emergency (ER) | payer MEDICARE ==
--- NOTE | 2025-02-07 15:09 | ED ---
SOB HPI - General Chief Complaint: Shortness of Breath Stated Complaint: BL Swelling of legs Time Seen by Provider: 02/07/25 13:20 Source: patient, RN notes reviewed Mode of arrival: EMS Limitations: no limitations - History of Present Illness Initial Comments: This is a 49-year-old male with history of alcohol abuse and heart failure who is presenting to the emergency department via EMS from [facility] for complaints of shortness of breath and difficulty breathing. Patient states that he has been experiencing worsening bilateral lower extremity edema over the past 3 days. Additionally, states that he has pain to his right thigh that is mildly swollen and red. Patient denies dyspnea at rest states that he has been experiencing dyspnea on exertion. Denies abdominal swelling or pain. Denies chest pain, heart palpitations, dizziness, lightheadedness. Patient states that he has been taking his Bumex as prescribed. patient denies history of PE, DVT, recent travel/surgeries or hemoptysis. of note, patient states he was diagnosed with a PUD about a month ago that was cauterized and since has Not been experiencing hematochezia, melena, hematemesis. - Related Data Home Medications Medication Instructions Recorded Confirmed Folic Acid 1 mg PO DAILY 05/18/17 01/15/25 Cetirizine HCl [Zyrtec] 10 mg PO DAILY 11/18/23 01/15/25 traZODone HCL [Desyrel] 50 mg PO HS 11/18/23 01/15/25 Baclofen 5 mg PO TID 07/19/24 01/15/25 Magnesium Oxide [Mag-Ox] 1,200 mg PO BID 07/19/24 01/15/25 Metoprolol Succinate (ER) [Toprol 50 mg PO DAILY 07/19/24 01/15/25 XL] Multivitamins, Thera [Multivitamin 1 tab PO DAILY 07/19/24 01/15/25 (formulary)] Ondansetron Odt [Zofran ODT] 4 mg PO BID PRN 07/19/24 01/15/25 Gabapentin 600 mg PO TID 09/13/24 01/15/25 Meloxicam [Mobic] 15 mg PO DAILY 09/13/24 01/15/25 ALPRAZolam [Xanax] 0.5 mg PO DAILY PRN 01/02/25 01/15/25 Previous Rx's Medication Instructions Recorded Thiamine [Vitamin B-1] 100 mg PO DAILY #30 tab 11/21/23 Omeprazole 40 mg PO BID #60 cap 07/20/24 Furosemide [Lasix] 40 mg PO DAILY #30 tab 01/02/25 Allergies Allergy/AdvReac Type Severity Reaction Status Date / Time Penicillins Allergy Rash/Hives Verified 02/07/25 13:06 bupropion [From Wellbutrin] AdvReac seizure Verified 02/07/25 13:06 Review of Systems ROS Statement: Those systems with pertinent positive or pertinent negative responses have been documented in the HPI. ROS Other: All systems not noted in ROS Statement are negative. Past Medical History Past Medical History: Heart Failure, Hypertension, Osteoarthritis (OA), Seizure Disorder Additional Past Medical History / Comment(s): States had Covid, was hospitalized then developed gastritis and sepsis 11/2023, Hx stomach ulcers and esophageal varices, Hx pancreatitis, anemia, last seizure(2022), Hepatitis A diagnosed in [place] History of Any Multi-Drug Resistant Organisms: None Reported Past Surgical History: Back Surgery, Cholecystectomy, Ear Surgery, Orthopedic Surgery Additional Past Surgical History / Comment(s): EGD, colonoscopy, bilateral myringotomies/tubes, C4-C6 cervical fusion(October 2020), left foot surgery X3 Past Anesthesia/Blood Transfusion Reactions: No Reported Reaction, Motion Sickness Additional Past Anesthesia/Blood Transfusion Reaction / Comment(s): No hx. blood transfusion. Past Psychological History: Anxiety, Depression, PTSD Smoking Status: Former smoker Past Alcohol Use History: Occasional Past Drug Use History: None Reported - Past Family History Mother Family Medical History: Thyroid Disorder Father Additional Family Medical History / Comment(s): ETOH. General Exam - General Exam Comments Initial Comments: Visual Physical Exam Vital signs reviewed General: Well-appearing, nontoxic, no acute distress. Head: Normocephalic, atraumatic Eyes: PERRLA, EOMI ENT: Airway patent Chest: Nonlabored breathing Skin: No visual rash, normal skin tone Neuro: Alert and oriented 3 Musculoskeletal: No gross abnormalities Limitations: no limitations General appearance: alert, in no apparent distress Neck exam: Present: normal inspection. Absent: tenderness, meningismus, lymphadenopathy Respiratory exam: Present: normal lung sounds bilaterally. Absent: respiratory distress, wheezes, rales, rhonchi, stridor Cardiovascular Exam: Present: regular rate, normal rhythm, normal heart sounds. Absent: systolic murmur, diastolic murmur, rubs, gallop, clicks GI/Abdominal exam: Present: soft, normal bowel sounds. Absent: distended, tenderness, guarding, rebound, rigid Extremities exam: Present: pedal edema. Absent: tenderness Left Upper Leg exam: Present: tenderness Back exam: Present: normal inspection Course Vital Signs 02/07/25 02/07/25 02/07/25 13:03 15:55 16:48 Temperature 98.3 F Pulse Rate 104 H 83 Respiratory 16 18 16 Rate Blood Pressure 115/75 113/71 O2 Sat by Pulse 100 98 Oximetry 02/07/25 18:15 Temperature Pulse Rate 80 Respiratory 16 Rate Blood Pressure 118/78 O2 Sat by Pulse 16 L Oximetry Medical Decision Making - Medical Decision Making Was pt. sent in by a medical professional or institution (, PA, WIRELESS SALES ASSOCIATE, urgent care, hospital, or usp...) When possible be specific @ -No Did you speak to anyone other than the patient for history (EMS, parent, family, police, friend...)? What history was obtained from this source @ -No Did you review nursing and triage notes (agree or disagree)? Why? @ -I reviewed and agree with nursing and triage notes Were old charts reviewed (outside hosp., previous admission, EMS record, old EKG, old radiological studies, urgent care reports/EKG's, usp records)? Report findings @ -No old charts were reviewed Differential Diagnosis (chest pain, altered mental status, abdominal pain women, abdominal pain men, vaginal bleeding, weakness, fever, dyspnea, syncope, headache, dizziness, GI bleed, back pain, seizure, CVA, palpatations, mental health, musculoskeletal)? @ -Differential Dyspnea: Coronary syndrome, arrhythmia, tamponade, asthma, COPD, pulmonary embolism, pneumonia, pneumothorax, pulmonary effusion, anaphylaxis, diabetic ketoacidosis, flailed chest, pulmonary contusion, diaphragmatic rupture, anemia, neuromuscular, this is not meant to be an all-inclusive list. EKG interpreted by me (3pts min.). @ -Completed at 1312, sinus rhythm with a ventricular rate of 99, CT interval 141, QRS 106, QT 347, QTc 403. X-rays interpreted by me (1pt min.). @ -Chest x-ray no acute cardiopulmonary process CT interpreted by me (1pt min.). @ -None done U/S interpreted by me (1pt. min.). @ -Ultrasound of left lower extremity no evidence of DVT. What testing was considered but not performed or refused? (CT, X-rays, U/S, labs)? Why? @ -None What meds were considered but not given or refused? Why? @ -None Did you discuss the management of the patient with other professionals (professionals i.e. , PA, WIRELESS SALES ASSOCIATE, lab, RT, psych nurse, neonatal social worker, dope house operator helper, teacher, police officer, medical case worker)? Give summary @ -No Was smoking cessation discussed for >3mins.? @ -No Was critical care preformed (if so, how long)? @ -No Were there social determinants of health that impacted care today? How? (Homelessness, low income, unemployed, alcoholism, drug addiction, transportation, low edu. Level, literacy, decrease access to med. care, [facility], rehab)? @ -No Was there de-escalation of care discussed even if they declined (Discuss DNR or withdrawal of care, Hospice)? DNR status @ -No What co-morbidities impacted this encounter? (DM, HTN, Smoking, COPD, CAD, Cancer, CVA, ARF, Chemo, Hep., AIDS, mental health diagnosis, sleep apnea, morbid obesity)? @ -None Was patient admitted / discharged? Hospital course, mention meds given and route, prescriptions, significant lab abnormalities, going to OR and other pertinent info. @ -discharged. 49-year-old male presenting from [place] for concerns of shortness of breath. Overall patient is well-appearing and initial vitals are stable. Patient has no signs of respiratory distress on examination. Patient does have bilateral lower extremity edema. There is noted erythema and tenderness to the left anterior thigh. EKG is in sinus rhythm. Laboratory testing reveals anemia that is chronic with a hemoglobin of 9.6. Coagulation is within normal. BNP and troponin is unremarkable. Patient is mildly hypomagnesemia with a magnesium of 1.4. Chest x-ray reveals no signs of pulmonary vascular congestion or pleural effusions. Patient is provided with oral resupplementation of magnesium is provided with IV dose of Lasix. Ultrasound imaging is unremarkable. Patient stable for discharge back to [place]. Chest x-ray no acute cardiopulmonary process, pleural effusion or vascular congestion. Case discussed with my attending Dr. Cohen. Undiagnosed new problem with uncertain prognosis? @ -No Drug Therapy requiring intensive monitoring for toxicity (Heparin, Nitro, Insulin, Cardizem)? @ -No Were any procedures done? @ -No Diagnosis/symptom? @ -Peripheral edema, hypomagnesemia Acute, or Chronic, or Acute on Chronic? @ -Acute Uncomplicated (without systemic symptoms) or Complicated (systemic symptoms)? @ -Uncomplicated Side effects of treatment? @ -No Exacerbation, Progression, or Severe Exacerbation? @ -No Poses a threat to life or bodily function? How? (Chest pain, [place], [place], pneumonia, PE, COPD, DKA, ARF, appy, cholecystitis, CVA, Diverticulitis, Homicidal, Suicidal, threat to staff... and all critical care pts) @ -No - Lab Data Result diagrams: 02/07/25 15:34 02/07/25 16:15 Lab Results 02/07/25 02/07/25 02/07/25 Range/Units 15:34 16:15 16:15 WBC 8.26 (4.50-10.00) 10*3/uL RBC 3.89 L (4.40-5.60) 10*6/uL Hgb 9.6 L D (13.0-17.0) g/dL Hct 31.2 L (39.6-50.0) % MCV 80.2 (80.0-97.0) fL MCH 24.7 L (27.0-32.0) pg MCHC 30.8 L (32.0-37.0) g/dL Plt Count 517 H D (140-440) 10*3/uL MPV 8.9 L (9.5-12.2) fL Immature Gran % (Auto) 0.5 % Neutrophils % 61.0 % Lymphocytes % 25.7 % Monocytes % 9.9 % Eosinophils % 1.8 % Basophils % 1.1 % Immature Gran # 0.04 (0.00-0.04) 10*3/uL Neutrophils # 5.04 (1.80-7.70) 10*3/uL Lymphocytes # 2.12 (0.90-5.00) 10*3/uL Monocytes # 0.82 (0.20-1.00) 10*3/uL Eosinophils # 0.15 (0.04-0.35) 10*3/uL Basophils # 0.09 (0.00-0.10) 10*3/uL Manual Slide Review Performed Anisocytosis (manual) Present Spherocytes Present PT 10.0 (10.0-12.5) sec INR 0.9 (<1.2) APTT 22.1 (22.0-30.0) sec Sodium 139 (137-145) mmol/L Potassium 4.4 (3.5-5.1) mmol/L Chloride 100 (98-107) mmol/L Carbon Dioxide 28 (22-30) mmol/L Anion Gap 11 mmol/L BUN 11 (9-20) mg/dL Creatinine 0.72 (0.66-1.25) mg/dL Est GFR (CKD-EPI)AfAm >90 (>60 ml/min/1.73 sqM) Est GFR (CKD-EPI)NonAf >90 (>60 ml/min/1.73 sqM) Glucose 108 H (74-99) mg/dL Calcium 9.7 (8.4-10.2) mg/dL Magnesium 1.4 L (1.6-2.3) mg/dL Total Bilirubin 0.2 (0.2-1.3) mg/dL AST 26 (17-59) U/L ALT 20 (4-49) U/L Alkaline Phosphatase 62 (38-126) U/L Troponin I (0.000-0.034) ng/mL NT-Pro-B Natriuret Pep 261 pg/mL Total Protein 7.0 (6.3-8.2) g/dL Albumin 4.3 (3.5-5.0) g/dL 02/07/25 Range/Units 17:07 WBC (4.50-10.00) 10*3/uL RBC (4.40-5.60) 10*6/uL Hgb (13.0-17.0) g/dL Hct (39.6-50.0) % MCV (80.0-97.0) fL MCH (27.0-32.0) pg MCHC (32.0-37.0) g/dL Plt Count (140-440) 10*3/uL MPV (9.5-12.2) fL Immature Gran % (Auto) % Neutrophils % % Lymphocytes % % Monocytes % % Eosinophils % % Basophils % % Immature Gran # (0.00-0.04) 10*3/uL Neutrophils # (1.80-7.70) 10*3/uL Lymphocytes # (0.90-5.00) 10*3/uL Monocytes # (0.20-1.00) 10*3/uL Eosinophils # (0.04-0.35) 10*3/uL Basophils # (0.00-0.10) 10*3/uL Manual Slide Review Anisocytosis (manual) Spherocytes PT (10.0-12.5) sec INR (<1.2) APTT (22.0-30.0) sec Sodium (137-145) mmol/L Potassium (3.5-5.1) mmol/L Chloride (98-107) mmol/L Carbon Dioxide (22-30) mmol/L Anion Gap mmol/L BUN (9-20) mg/dL Creatinine (0.66-1.25) mg/dL Est GFR (CKD-EPI)AfAm (>60 ml/min/1.73 sqM) Est GFR (CKD-EPI)NonAf (>60 ml/min/1.73 sqM) Glucose (74-99) mg/dL Calcium (8.4-10.2) mg/dL Magnesium (1.6-2.3) mg/dL Total Bilirubin (0.2-1.3) mg/dL AST (17-59) U/L ALT (4-49) U/L Alkaline Phosphatase (38-126) U/L Troponin I <0.012 (0.000-0.034) ng/mL NT-Pro-B Natriuret Pep pg/mL Total Protein (6.3-8.2) g/dL Albumin (3.5-5.0) g/dL Disposition Clinical Impression: Peripheral edema, Hypomagnesemia Disposition: HOME SELF-CARE Condition: Good Instructions (If sedation given, give patient instructions): Leg Edema (ED) Additional Instructions: Please return to the Emergency Department if symptoms worsen or any other concerns. Is patient prescribed a controlled substance at d/c from ED?: No Referrals: Landry Lacey DO [Primary Care Provider] - 1-2 days Time of Disposition: 18:39
--- NOTE | 2025-02-07 15:22 | XR ---
EXAMINATION TYPE: XR chest 2V DATE OF EXAM: 02/07/2025 3:17 PM COMPARISON: 01/24/2025 CLINICAL INDICATION: Male, 49 years old with history of difficulty breathing, TECHNIQUE: Frontal and lateral views of the chest are obtained. FINDINGS: There is no focal air space opacity, pleural effusion, or pneumothorax seen. The cardiac silhouette size is within normal limits. The osseous structures are intact. IMPRESSION: No acute cardiopulmonary process. [facility], , 02/07/2025 3:20 PM
[2025-02-07 15:50] LABS: Basophils # (A) 0.09 10*3/uL (0.00-0.10); Basophils % (A) 1.1 %; Eosinophils # (A) 0.15 10*3/uL (0.04-0.35); Eosinophils % (A) 1.8 %; HCT 31.2 % (39.6-50.0); Lymphocytes # (A) 2.12 10*3/uL (0.90-5.00); Lymphocytes % (A) 25.7 %; MCH 24.7 pg (27.0-32.0); MCHC 30.8 g/dL (32.0-37.0); MCV 80.2 fL (80.0-97.0); Monocytes # (A) 0.82 10*3/uL (0.20-1.00); Monocytes % (A) 9.9 %; Neutrophils # (A) 5.04 10*3/uL (1.80-7.70); Neutrophils % (A) 61.0 %; RBC 3.89 10*6/uL (4.40-5.60); RDW 19.4 % (11.5-14.5); WBC 8.26 10*3/uL (4.50-10.00)
[2025-02-07 15:54] LABS: Platelet Count 517 10*3/uL (140-440)
[2025-02-07 15:55] LABS: HGB 9.6 g/dL (13.0-17.0)
[2025-02-07 16:22] LABS: Anisocytosis (M) Present; Spherocytes Present
[2025-02-07 16:34] LABS: INR 0.9 (<1.2); Partial Thromboplastin Time 22.1 sec (22.0-30.0); Prothrombin Time 10.0 sec (10.0-12.5)
[2025-02-07 16:36] LABS: ALT 20 U/L (4-49); AST 26 U/L (17-59); African American GFR (CKD) >90 (>60 ml/min/1.73 sqM); Albumin 4.3 g/dL (3.5-5.0); Alkaline Phosphatase 62 U/L (38-126); Anion Gap 11 mmol/L; Blood Urea Nitrogen 11 mg/dL (9-20); Calcium 9.7 mg/dL (8.4-10.2); Carbon Dioxide 28 mmol/L (22-30); Chloride 100 mmol/L (98-107); Glucose 108 mg/dL (74-99); Magnesium 1.4 mg/dL (1.6-2.3); Non-African American GFR(CKD) >90 (>60 ml/min/1.73 sqM); Potassium 4.4 mmol/L (3.5-5.1); Sodium 139 mmol/L (137-145); Total Protein 7.0 g/dL (6.3-8.2)
[2025-02-07 16:44] LABS: NT-Pro-B-Type Natriuretic Pept 261 pg/mL
--- NOTE | 2025-02-07 18:26 | US ---
EXAMINATION TYPE: US venous doppler duplex LE LT DATE OF EXAM: 02/07/2025 6:05 PM COMPARISON: NONE CLINICAL INDICATION: Male, 49 years old with history of swelling, redness and pain in thigh; patient states redness and pain in thigh for 3days . no hx dvt, not on thinners, Pain TECHNIQUE: The lower extremity deep venous system is examined utilizing real time linear array sonog chana with graded compression, color doppler sonography, and spectral doppler. SIDE PERFORMED: Left FINDINGS: VESSELS IMAGED: Common Femoral Vein Deep Femoral Vein Greater Saphenous Vein * Femoral Vein Popliteal Vein Small Saphenous Vein * Proximal Calf Veins (* superficial vessels) Left Leg: Appears negative for dvt, Color Doppler imaging shows patency of the vessels. Spectral wav eforms are within normal limits. IMPRESSION: No ultrasound evidence for deep venous thrombosis. [facility], , 02/07/2025 6:24 PM
[2025-02-07] MEDS: MAGNESIUM OXIDE 400 MG TAB PO STA (18:52)
[2025-02-07] MEDS: FUROSEMIDE 10 MG/ML 4 ML VIAL IV STA (18:52)
[2025-02-07] MEDS: LORazepam 1 MG/0.5 ML VIAL IV STA (18:53)
[2025-02-07 19:04] VITALS: BP 114/70; PULSE 59; RESP 18; TEMP 98.6
== END 2025-02-07 19:04 | disposition home or self-care (01) ==
LOC: EC 13:02
DX: E83.42 Hypomagnesemia (principal); R60.9 Edema, unspecified; Z87.891 Personal history of nicotine dependence; Z88.0 Allergy status to penicillin; Z88.8 Allergy status to other drugs, medicaments and biological substances
CPT/HCPCS: 36415; 93005; 83880; 80053; 83735; 84484; 85025; 85610; 85730; 71046; 93971; 99285; 96374; 96375; J2060; J1938

== ENCOUNTER 2025-02-14 10:33 | Observation (INO) | payer MEDICARE ==
--- NOTE | 2025-02-14 11:12 | ED ---
General Adult HPI - General Chief complaint: Chest Pain Stated complaint: L leg pain, chest tightness Time Seen by Provider: 02/14/25 10:42 Source: patient Mode of arrival: ambulatory Limitations: no limitations - History of Present Illness Initial comments: Dictation was produced using [employer] dictation software. please excuse any grammatical, word or spelling errors. Chief Complaint: 41-year-old male with history of heart failure presents with chest pain History of Present Illness: Patient is a 41-year-old male with history of heart failure. Patient states he had chest pressure today. States that it is substernal chest pressure nonradiating he states it is associated with some nausea. Does report some mild exertional dyspnea. No history of heart attacks. No family history of heart attacks. He reports that he has never had a stress test or cardiac cath. The ROS documented in this emergency department record has been reviewed and co nfirmed by me. Those systems with pertinent positive or negative responses have been documented in the HPI. All other systems are other negative and/or noncontributory. - Related Data Home Medications Medication Instructions Recorded Confirmed RX: Folic Acid 1 mg PO DAILY 05/18/17 01/15/25 RX: Cetirizine HCl [Zyrtec] 10 mg PO DAILY 11/18/23 01/15/25 RX: traZODone HCL [Desyrel] 50 mg PO HS 11/18/23 01/15/25 RX: Baclofen 5 mg PO TID 07/19/24 01/15/25 RX: Magnesium Oxide [Mag-Ox] 1,200 mg PO BID 07/19/24 01/15/25 RX: Metoprolol Succinate (ER) 50 mg PO DAILY 07/19/24 01/15/25 [Toprol XL] RX: Multivitamins, Thera 1 tab PO DAILY 07/19/24 01/15/25 [Multivitamin (formulary)] RX: Ondansetron Odt [Zofran ODT] 4 mg PO BID PRN 07/19/24 01/15/25 RX: Gabapentin 600 mg PO TID 09/13/24 01/15/25 RX: Meloxicam [Mobic] 15 mg PO DAILY 09/13/24 01/15/25 RX: ALPRAZolam [Xanax] 0.5 mg PO DAILY PRN 01/02/25 01/15/25 Previous Rx's Medication Instructions Recorded RX: Thiamine [Vitamin B-1] 100 mg PO DAILY #30 tab 11/21/23 RX: Omeprazole 40 mg PO BID #60 cap 07/20/24 RX: Furosemide [Lasix] 40 mg PO DAILY #30 tab 01/02/25 Allergies Allergy/AdvReac Type Severity Reaction Status Date / Time Penicillins Allergy Rash/Hives Verified 02/07/25 13:06 bupropion [From Wellbutrin] AdvReac seizure Verified 02/07/25 13:06 Review of Systems ROS Statement: Those systems with pertinent positive or pertinent negative responses have been documented in the HPI. ROS Other: All systems not noted in ROS Statement are negative. Past Medical History Past Medical History: Heart Failure, Hypertension, Osteoarthritis (OA), Seizure Disorder Additional Past Medical History / Comment(s): States had Covid, was hospitalized then developed gastritis and sepsis 11/2023, Hx stomach ulcers and esophageal varices, Hx pancreatitis, anemia, last seizure(2022), Hepatitis A diagnosed in [place] History of Any Multi-Drug Resistant Organisms: None Reported Past Surgical History: Back Surgery, Cholecystectomy, Ear Surgery, Orthopedic Surgery Additional Past Surgical History / Comment(s): EGD, colonoscopy, bilateral myringotomies/tubes, C4-C6 cervical fusion(October 2020), left foot surgery X3 Past Anesthesia/Blood Transfusion Reactions: No Reported Reaction, Motion Sickness Additional Past Anesthesia/Blood Transfusion Reaction / Comment(s): No hx. blood transfusion. Past Psychological History: Anxiety, Depression, PTSD Smoking Status: Former smoker Past Alcohol Use History: Occasional Past Drug Use History: None Reported - Past Family History Mother Family Medical History: Thyroid Disorder Father Additional Family Medical History / Comment(s): ETOH. General Exam - General Exam Comments Initial Comments: PHYSICAL EXAM: General Impression: Alert and oriented x3, not in acute distress HEENT: Normocephalic atraumatic, extra-ocular movements intact, pupils equal and reactive to light bilaterally, mucous membranes moist. Cardiovascular: Heart regular rate and rhythm Chest: Able to complete full sentences, no retractions, no tachypnea Abdomen: abdomen soft, non-tender, non-distended, no organomegaly Musculoskeletal: Pulses present and equal in all extremities, no peripheral edema Motor: no focal deficits noted Neurological: CN II-XII grossly intact, no focal motor or sensory deficits noted Skin: Intact with no visualized rashes Psych: Normal affect and mood Limitations: no limitations Course Vital Signs 02/14/25 02/14/25 02/14/25 10:34 10:44 10:57 Temperature 99 F Pulse Rate 138 H 123 H Pulse Rate [ 123 H Revenue Liaison ] Respiratory 24 18 Rate Blood Pressure 124/88 134/92 O2 Sat by Pulse 100 99 Oximetry EKG Findings - EKG Comments: EKG Findings:: My EKG interpretation: Ventricular rate 120, sinus tachycardia, TX 130, QRS 91, QTc 395. No TX prolongation, no QTC prolongation, no ST or T- wave changes noted. Overall, this EKG is unremarkable Medical Decision Making - Medical Decision Making Was pt. sent in by a medical professional or institution (, PA, PACKAGING INSPECTOR, urgent care, hospital, or fpc...) When possible be specific @ -No Did you speak to anyone other than the patient for history (EMS, parent, family, police, friend...)? What history was obtained from this source @ -No Did you review nursing and triage notes (agree or disagree)? Why? @ -I reviewed and agree with nursing and triage notes Were old charts reviewed (outside hosp., previous admission, EMS record, old EKG, old radiological studies, urgent care reports/EKG's, fpc records)? Report findings @ -No old charts were reviewed Differential Diagnosis (chest pain, altered mental status, abdominal pain women, abdominal pain men, vaginal bleeding, musculoskeletal, weakness, fever, dyspnea, syncope, headache, dizziness, GI bleed, back pain, seizure, CVA, palpatations, mental health)? @ -Differential Chest Pain: Stable Angina, Unstable Angina, STEMI, NSTEMI Aortic Dissection, Pneumothorax, Musculoskeletal, Esophageal Spasm GERD, Cholecystitis, Pancreatitis, Zoster, this is not meant to be an all-inclusive list. EKG interpreted by me (3pts min.). @ -See above X-rays interpreted by me (1pt min.). @ -Chest x-ray shows no acute processes CT interpreted by me (1pt min.). @ -CT angiography of the chest initial scan showed no obvious saddle emboli patient pending repeat CT scan U/S interpreted by me (1pt. min.). @ -None done What testing was considered but not performed or refused? (CT, X-rays, U/S, labs)? Why? @ -None What meds were considered but not given or refused? Why? @ -None Was smoking cessation discussed for >3mins.? @ -No Were there social determinants of health that impacted care today? How? (Homelessness, low income, unemployed, alcoholism, drug addiction, transportation, low edu. Level, literacy, decrease access to med. care, nursing home, rehab)? @ -No Was there de-escalation of care discussed even if they declined (Discuss DNR or withdrawal of care, Hospice)? DNR status @ -No What co-morbidities impacted this encounter? (DM, HTN, Smoking, COPD, CAD, Cancer, CVA, ARF, Chemo, Hep., AIDS, mental health diagnosis, sleep apnea, morbid obesity)? @ -None Was patient admitted / discharged? Hospital course, mention meds given and route, prescriptions, significant lab abnormalities, going to OR and other pertinent info. @ -49-year-old male presents emergency department with chest pain. Patient's symptoms are atypical with typical features. Patient is tachycardic on arrival. KG shows sinus tachycardia without any signs of ischemia. Laboratory evaluation obtained. Troponin negative. Magnesium 1.1. Patient does have a mild gap acidosis unclear etiology. Medications reviewed. No obvious cause. Patient given IV fluids, analgesics. Magnesium replaced. Patient given aspirin will be admitted with consultation to cardiology for chest pain. Case discussed hospitalist for admission Did you discuss the management of the patient with other professionals (pro fessionals i.e. , PA, PACKAGING INSPECTOR, lab, RT, psych nurse, social work therapist, resident care manager rn, teacher, staff mine warfare officer, manager of case)? Give summary @ -See above Was critical care preformed (if so, how long)? @ -No Undiagnosed new problem with uncertain prognosis? @ -No Drug Therapy requiring intensive monitoring for toxicity (Heparin, Nitro, Insulin, Cardizem)? @ -No Were any procedures done? @ -No Diagnosis/symptom? Acute, or Chronic, or Acute on Chronic? Uncomplicated (without systemic symptoms) or Complicated (systemic symptoms)? @ -Chest pain Side effects of treatment? @ -No Exacerbation, Progression, or Severe Exacerbation? @ -No Poses a threat to life or bodily function? How? (Chest pain, [place], [place], pneumonia, PE, COPD, DKA, ARF, appy, cholecystitis, CVA, Diverticulitis, Homicidal, Suicidal, threat to staff... and all critical care pts) @ -yes - Lab Data Result diagrams: 02/14/25 11:25 02/14/25 11:25 Lab Results 02/14/25 02/14/25 02/14/25 Range/Units 11:25 11:25 11:25 WBC 9.06 (4.50-10.00) 10*3/uL RBC 4.21 L (4.40-5.60) 10*6/uL Hgb 10.2 L (13.0-17.0) g/dL Hct 32.8 L (39.6-50.0) % MCV 77.9 L (80.0-97.0) fL MCH 24.2 L (27.0-32.0) pg MCHC 31.1 L (32.0-37.0) g/dL Plt Count 516 H (140-440) 10*3/uL MPV 9.1 L (9.5-12.2) fL Immature Gran % (Auto) 0.3 % Neutrophils % 68.0 % Lymphocytes % 22.3 % Monocytes % 8.2 % Eosinophils % 0.3 % Basophils % 0.9 % Immature Gran # 0.03 (0.00-0.04) 10*3/uL Neutrophils # 6.16 (1.80-7.70) 10*3/uL Lymphocytes # 2.02 (0.90-5.00) 10*3/uL Monocytes # 0.74 (0.20-1.00) 10*3/uL Eosinophils # 0.03 L (0.04-0.35) 10*3/uL Basophils # 0.08 (0.00-0.10) 10*3/uL PT 10.9 (10.0-12.5) sec INR 1.0 (<1.2) APTT 22.6 (22.0-30.0) sec D-Dimer 1.37 H (<0.60) mg/L FEU Sodium 140 (137-145) mmol/L Potassium 4.2 (3.5-5.1) mmol/L Chloride 101 (98-107) mmol/L Carbon Dioxide 16 L (22-30) mmol/L Anion Gap 23 mmol/L BUN 13 (9-20) mg/dL Creatinine 0.71 (0.66-1.25) mg/dL Est GFR (CKD-EPI)AfAm >90 (>60 ml/min/1.73 sqM) Est GFR (CKD-EPI)NonAf >90 (>60 ml/min/1.73 sqM) Glucose 97 (74-99) mg/dL Calcium 9.7 (8.4-10.2) mg/dL Magnesium 1.1 L (1.6-2.3) mg/dL Total Bilirubin 0.3 (0.2-1.3) mg/dL AST 38 (17-59) U/L ALT 24 (4-49) U/L Alkaline Phosphatase 83 (38-126) U/L Troponin I (0.000-0.034) ng/mL Total Protein 7.3 (6.3-8.2) g/dL Albumin 4.6 (3.5-5.0) g/dL 02/14/25 Range/Units 11:25 WBC (4.50-10.00) 10*3/uL RBC (4.40-5.60) 10*6/uL Hgb (13.0-17.0) g/dL Hct (39.6-50.0) % MCV (80.0-97.0) fL MCH (27.0-32.0) pg MCHC (32.0-37.0) g/dL Plt Count (140-440) 10*3/uL MPV (9.5-12.2) fL Immature Gran % (Auto) % Neutrophils % % Lymphocytes % % Monocytes % % Eosinophils % % Basophils % % Immature Gran # (0.00-0.04) 10*3/uL Neutrophils # (1.80-7.70) 10*3/uL Lymphocytes # (0.90-5.00) 10*3/uL Monocytes # (0.20-1.00) 10*3/uL Eosinophils # (0.04-0.35) 10*3/uL Basophils # (0.00-0.10) 10*3/uL PT (10.0-12.5) sec INR (<1.2) APTT (22.0-30.0) sec D-Dimer (<0.60) mg/L FEU Sodium (137-145) mmol/L Potassium (3.5-5.1) mmol/L Chloride (98-107) mmol/L Carbon Dioxide (22-30) mmol/L Anion Gap mmol/L BUN (9-20) mg/dL Creatinine (0.66-1.25) mg/dL Est GFR (CKD-EPI)AfAm (>60 ml/min/1.73 sqM) Est GFR (CKD-EPI)NonAf (>60 ml/min/1.73 sqM) Glucose (74-99) mg/dL Calcium (8.4-10.2) mg/dL Magnesium (1.6-2.3) mg/dL Total Bilirubin (0.2-1.3) mg/dL AST (17-59) U/L ALT (4-49) U/L Alkaline Phosphatase (38-126) U/L Troponin I <0.012 (0.000-0.034) ng/mL Total Protein (6.3-8.2) g/dL Albumin (3.5-5.0) g/dL Disposition Clinical Impression: Chest pain Disposition: ADMITTED IP TO THIS HOSP Condition: Fair Referrals: Landry Lacey DO [Primary Care Provider] - 1-2 days Decision Time: 14:06
[2025-02-14 12:05] LABS: Basophils # (A) 0.08 10*3/uL (0.00-0.10); Basophils % (A) 0.9 %; Eosinophils # (A) 0.03 10*3/uL (0.04-0.35); Eosinophils % (A) 0.3 %; HCT 32.8 % (39.6-50.0); HGB 10.2 g/dL (13.0-17.0); Lymphocytes # (A) 2.02 10*3/uL (0.90-5.00); Lymphocytes % (A) 22.3 %; MCH 24.2 pg (27.0-32.0); MCHC 31.1 g/dL (32.0-37.0); MCV 77.9 fL (80.0-97.0); Monocytes # (A) 0.74 10*3/uL (0.20-1.00); Monocytes % (A) 8.2 %; Neutrophils # (A) 6.16 10*3/uL (1.80-7.70); Neutrophils % (A) 68.0 %; Platelet Count 516 10*3/uL (140-440); RBC 4.21 10*6/uL (4.40-5.60); RDW 18.3 % (11.5-14.5); WBC 9.06 10*3/uL (4.50-10.00)
[2025-02-14 12:22] LABS: ALT 24 U/L (4-49); AST 38 U/L (17-59); African American GFR (CKD) >90 (>60 ml/min/1.73 sqM); Albumin 4.6 g/dL (3.5-5.0); Alkaline Phosphatase 83 U/L (38-126); Anion Gap 23 mmol/L; Blood Urea Nitrogen 13 mg/dL (9-20); Calcium 9.7 mg/dL (8.4-10.2); Carbon Dioxide 16 mmol/L (22-30); Chloride 101 mmol/L (98-107); Glucose 97 mg/dL (74-99); Magnesium 1.1 mg/dL (1.6-2.3); Non-African American GFR(CKD) >90 (>60 ml/min/1.73 sqM); Potassium 4.2 mmol/L (3.5-5.1); Sodium 140 mmol/L (137-145); Total Protein 7.3 g/dL (6.3-8.2)
[2025-02-14 12:26] LABS: INR 1.0 (<1.2); Partial Thromboplastin Time 22.6 sec (22.0-30.0); Prothrombin Time 10.9 sec (10.0-12.5)
--- NOTE | 2025-02-14 12:59 | XR ---
EXAMINATION TYPE: XR chest 2V DATE OF EXAM: 02/14/2025 12:11 PM COMPARISON: Chest radiographs from 02/07/2025. CLINICAL INDICATION: Male, 49 years old with history of Chest Pain; [facility] TECHNIQUE: XR chest 2V Frontal and lateral views of the chest. FINDINGS: Lungs/Pleura: There is no evidence of pleural effusion, focal consolidation, or pneumothorax. Pulmonary vascularity: Unremarkable. Heart/mediastinum: Cardiomediastinal silhouette is unremarkable. Musculoskeletal: No acute osseous pathology. There is fixation hardware in the lower cervical spine. IMPRESSION: Low lung volumes with a generalized hazy appearance which could represent atelectasis versus pulmonar y edema correlate with serum BNP. [facility], , 02/14/2025 12:57 PM
[2025-02-14] MEDS: SODIUM CHLORIDE 0.9% 1,000 ML IV STA (13:27)
[2025-02-14] MEDS: MORPHINE SULFATE 4 MG/ML SYRINGE IV STA (13:28)
[2025-02-14] MEDS: MAGNESIUM SULFATE-D5W PMX 1 GM in DEXTROSE/WATER 1 100ML.BAG IVPB SCH (13:30)
[2025-02-14] MEDS: ONDANSETRON 4 MG/2 ML VIAL IVP STA (13:34)
--- NOTE | 2025-02-14 13:41 | CT ---
EXAMINATION TYPE: CT angio chest DATE OF EXAM: 02/14/2025 COMPARISON: 01/15/2020 CLINICAL INDICATION: Male, 49 years old with history of positive D-dimer; PHH, Positive D-dimer TECHNIQUE: CTA scan of the thorax is performed without and with IV Contrast, patient injected with 100 ml mL of Isovue 370, pulmonary embolism protocol. MIP images are created and reviewed. CT DLP: 484.[address] CTDI: mGy Automated exposure control for dose reduction was used. FINDINGS: Study is nondiagnostic as there is suboptimal opacification of the pulmonary arteries. The lungs are clear and there is no airspace consolidation or abnormal interstitial density. There are a few scattered micronodules with no nodules greater than 5 mm. There is no pleural effusion or pneumothorax. There is no thoracic aortic aneurysm. There is no mediastinal, hilar or axillary adenopathy. There are no focal osseous lesions. IMPRESSION: 1. Nondiagnostic study. Pulmonary embolism cannot be excluded. 2. No acute cardiopulmonary disease. [facility], , 02/14/2025 1:38 PM
[2025-02-14] MEDS ORDERED: NITROGLYCERIN SL TABS 0.4 MG TAB SUBLINGUAL PRN (13:59)
--- NOTE | 2025-02-14 14:20 | P.HPIM ---
History of Present Illness This is a pleasant 49 years old male with past medical history of alcohol use disorder. He has multiple hospitalization to the hospital. This is the sixth visit to the emergency room this year. Last year he visited the emergency room in this facility 8 times per records. Patient also was in this facility about 1 week ago for bilateral leg swelling and he has negative ultrasound of the leg as he confirms to me Presents today because of chest pain in the left middle chest nonradiating about 5-7/10 in severity now feels better. Associate with some lightheadedness and shortness of breath but no coughing No other specific GI/ symptoms. No headache dizziness weakness numbness He quit [employer] few months ago. He just left [place] about 1 week ago as he stayed for alcohol withdrawal. He denies illicit drugs He states that he saw Dr. Liz yesterday for follow-up for 1 time he was diagnosed with CHF. However he is not in CHF medication. Dr. Liz told him everything good Review of Systems Review of systems CONSTITUTIONAL: No fever, no malaise, no fatigue. HEENT: No recent visual problems or hearing problems. Denied any sore throat. CARDIOVASCULAR: No orthopnea, PND, no palpitations, no syncope. PULMONARY: No shortness of breath, no cough, no hemoptysis. GASTROINTESTINAL: No diarrhea, no nausea, no vomiting, no abdominal pain. Normoactive bowel sounds. NEUROLOGICAL: No headaches, no weakness, no numbness. HEMATOLOGICAL: Denies any bleeding or petechiae. GENITOURINARY: Denies any burning micturition, frequency, or urgency. MUSCULOSKELETAL/RHEUMATOLOGICAL: Denies any joint pain, swelling, or any muscle pain. ENDOCRINE: Denies any polyuria or polydipsia. Past Medical History Past Medical History: Heart Failure, Hypertension, Osteoarthritis (OA), Seizure Disorder Additional Past Medical History / Comment(s): States had Covid, was hospitalized then developed gastritis and sepsis 11/2023, Hx stomach ulcers and esophageal varices, Hx pancreatitis, anemia, last seizure(2022), Hepatitis A diagnosed in [place] History of Any Multi-Drug Resistant Organisms: None Reported Past Surgical History: Back Surgery, Cholecystectomy, Ear Surgery, Orthopedic Surgery Additional Past Surgical History / Comment(s): EGD, colonoscopy, bilateral myringotomies/tubes, C4-C6 cervical fusion(October 2020), left foot surgery X3 Past Anesthesia/Blood Transfusion Reactions: No Reported Reaction, Motion Sickness Additional Past Anesthesia/Blood Transfusion Reaction / Comment(s): No hx. blood transfusion. Past Psychological History: Anxiety, Depression, PTSD Smoking Status: Former smoker Past Alcohol Use History: Occasional Past Drug Use History: None Reported - Past Family History Mother Family Medical History: Thyroid Disorder Father Additional Family Medical History / Comment(s): ETOH. Medications and Allergies Home Medications Medication Instructions Recorded Confirmed Type Folic Acid 1 mg PO DAILY 05/18/17 01/15/25 History Cetirizine HCl [Zyrtec] 10 mg PO DAILY 11/18/23 01/15/25 History traZODone HCL [Desyrel] 50 mg PO HS 11/18/23 01/15/25 History Thiamine [Vitamin B-1] 100 mg PO DAILY #30 tab 11/21/23 01/15/25 Rx Baclofen 5 mg PO TID 07/19/24 01/15/25 History Magnesium Oxide [Mag-Ox] 1,200 mg PO BID 07/19/24 01/15/25 History Metoprolol Succinate (ER) [Toprol 50 mg PO DAILY 07/19/24 01/15/25 History XL] Multivitamins, Thera [Multivitamin 1 tab PO DAILY 07/19/24 01/15/25 History (formulary)] Ondansetron Odt [Zofran ODT] 4 mg PO BID PRN 07/19/24 01/15/25 History Omeprazole 40 mg PO BID #60 cap 07/20/24 01/15/25 Rx Gabapentin 600 mg PO TID 09/13/24 01/15/25 History Meloxicam [Mobic] 15 mg PO DAILY 09/13/24 01/15/25 History ALPRAZolam [Xanax] 0.5 mg PO DAILY PRN 01/02/25 01/15/25 History Furosemide [Lasix] 40 mg PO DAILY #30 tab 01/02/25 01/15/25 Rx Allergies Allergy/AdvReac Type Severity Reaction Status Date / Time Penicillins Allergy Rash/Hives Verified 02/07/25 13:06 bupropion [From Wellbutrin] AdvReac seizure Verified 02/07/25 13:06 Physical Exam Vitals: Vital Signs Temp Pulse Pulse Resp BP Pulse Ox 02/14/25 10:57 123 H 02/14/25 10:44 123 H 18 134/92 99 02/14/25 10:34 99 F 138 H 24 124/88 100 Intake and Output 02/13/25 02/14/25 02/14/25 22:59 06:59 14:59 Other: Weight 97.522 kg GENERAL: The patient is alert and oriented x3, not in any acute distress. Well developed, well nourished. HEENT: Pupils are round and equally reacting to light. EOMI. No scleral icterus. No conjunctival pallor. Normocephalic, atraumatic. No pharyngeal erythema. No thyromegaly. CARDIOVASCULAR: S1 and S2 present. No murmurs, rubs, or gallops. PULMONARY: Chest is clear to auscultation, no wheezing , no crackles. ABDOMEN: Soft, nontender, nondistended, normoactive bowel sounds. No palpable organomegaly. MUSCULOSKELETAL: No joint swelling or deformity. EXTREMITIES: No cyanosis, clubbing, or pedal edema. NEUROLOGICAL: Gross neurological examination did not reveal any focal deficits. SKIN: No rashes. no petechiae. Results CBC & Chem 7: 02/14/25 11:25 02/14/25 11:25 Labs: Abnormal Lab Results - Last 24 Hours (Table) 02/14/25 02/14/25 02/14/25 Range/Units 11:25 11:25 11:25 RBC 4.21 L (4.40-5.60) 10*6/uL Hgb 10.2 L (13.0-17.0) g/dL Hct 32.8 L (39.6-50.0) % MCV 77.9 L (80.0-97.0) fL MCH 24.2 L (27.0-32.0) pg MCHC 31.1 L (32.0-37.0) g/dL Plt Count 516 H (140-440) 10*3/uL MPV 9.1 L (9.5-12.2) fL Eosinophils # 0.03 L (0.04-0.35) 10*3/uL D-Dimer 1.37 H (<0.60) mg/L FEU Carbon Dioxide 16 L (22-30) mmol/L Magnesium 1.1 L (1.6-2.3) mg/dL Assessment and Plan Assessment: Chest pain looks musculoskeletal. Rule out cardiac causes. CT of the chest was nondiagnostic for PE Sinus tachycardia Left leg pain. Rule out DVT Hypertension Osteoarthritis history of seizure disorder Anxiety and depression Plan: Continue with aspirin Cardiology team consult The suspicion of PE is low Labs and medication were reviewed.. Continue same treatment. Continue with symptomatic treatment. Resume home medication. Monitor labs and vitals. DVT and GI prophylaxis. Further recommendations as per clinical course of the patient DVT prophylaxis: Subcutaneous heparin GI Prophylaxis: Pepcid PT/OT: Pending Prognosis is guarded
[2025-02-14] MEDS: ASPIRIN 81 MG PO STA (14:39)
[2025-02-14] MEDS: ENOXAPARIN 40 MG/0.4 ML SYRINGE SQ SCH (14:40)
[2025-02-14] MEDS: NITROGLYCERIN SL TABS 0.4 MG TAB SUBLINGUAL STA (14:42)
--- NOTE | 2025-02-14 15:22 | CT ---
EXAMINATION TYPE: CT angio chest DATE OF EXAM: 02/14/2025 COMPARISON: 02/14/2025 CLINICAL INDICATION: Male, 49 years old with history of positive d dimer, needs IV in arm; PHH, Posit hong D-dimer. TECHNIQUE: CTA scan of the thorax is performed with IV Contrast, patient injected with 100 ml mL of Isovue 370, pulmonary embolism protocol. MIP images are created and reviewed. CT DLP: 550.[address] CTDI: mGy Automated exposure control for dose reduction was used. FINDINGS: LUNGS: The lungs are grossly clear, there is no concerning parenchymal mass or nodule identified. T here is no pleural effusion or pneumothorax seen. The tracheobronchial tree is patent. MEDIASTINUM: There is satisfactory enhancement of the pulmonary artery and its branches, there is no CT evidence for pulmonary embolism. There are no greater than 1 cm hilar or mediastinal lymph nodes. No pericardial effusion is seen. IMPRESSION: 1. NO EVIDENCE OF PULMONARY EMBOLUS. 2. NO ACUTE CARDIOPULMONARY DISEASE. [facility], , 02/14/2025 3:20 PM
--- NOTE | 2025-02-14 16:16 | US ---
EXAMINATION TYPE: US venous doppler duplex LE BI DATE OF EXAM: 02/14/2025 4:10 PM COMPARISON: NONE CLINICAL INDICATION: Male, 49 years old with history of leg swelling; Pain and swelling, Pain TECHNIQUE: The lower extremity deep venous system is examined utilizing real time linear array sonog chana with graded compression, color doppler sonography, and spectral doppler. SIDE PERFORMED: Bilateral FINDINGS: VESSELS IMAGED: Common Femoral Vein Deep Femoral Vein Greater Saphenous Vein * Femoral Vein Popliteal Vein Small Saphenous Vein * Proximal Calf Veins (* superficial vessels) Right Leg: Negative for DVT, Color Doppler imaging shows patency of the vessels. Spectral waveforms are within normal limits. Left Leg: Negative for DVT, Color Doppler imaging shows patency of the vessels. Spectral waveforms a re within normal limits. IMPRESSION: No ultrasound evidence for deep venous thrombosis. [facility], , 02/14/2025 4:13 PM
[2025-02-14] MEDS ORDERED: MELOXICAM 7.5 MG TAB PO PRN (16:52)
[2025-02-14] MEDS: METOPROLOL SUCCINATE (ER) 50 MG TAB.ER.24H PO SCH (18:05)
[2025-02-14] MEDS: IBUPROFEN 800 MG TAB PO PRN (18:05)
[2025-02-14] MEDS: BACLOFEN 10 MG TAB PO SCH (21:18)
[2025-02-14] MEDS: MAGNESIUM OXIDE 400 MG TAB PO SCH (21:18)
[2025-02-14] MEDS: ACETAMINOPHEN TAB 325 MG TAB PO PRN (21:18)
[2025-02-14] MEDS: GABAPENTIN 300 MG CAP PO SCH (21:18)
[2025-02-14] MEDS: LIDOCAINE 4% PATCH TOPICAL SCH (21:21)
[2025-02-15] MEDS: PANTOPRAZOLE 40 MG/10 ML VIAL IVP SCH (02:22)
[2025-02-15] MEDS: ONDANSETRON ODT 4 MG TAB PO PRN (03:19)
[2025-02-15] MEDS ORDERED: DOBUTamine DRIP for NUC MED 500 MG in DEXTROSE/WATER 1 250ML.BAG IV PRN (08:00)
[2025-02-15] MEDS: ASPIRIN 325 MG TAB PO SCH (10:14)
[2025-02-15] MEDS: FOLIC ACID 1 MG TAB PO SCH (10:14)
[2025-02-15] MEDS: ALPRAZolam 0.5 MG TAB PO PRN (10:15)
[2025-02-15] MEDS: MULTIVITAMINS, THERA 1 EACH TAB PO SCH (10:16)
[2025-02-15] MEDS: THIAMINE 100 MG TAB PO SCH (10:17)
[2025-02-15 10:31] LABS: Anion Gap 16.30 mmol/L (4.00-12.00); BUN/Creat Ratio 12.86 Ratio (12.00-20.00); Blood Urea Nitrogen 9.0 mg/dL (9.0-27.0); Calcium 8.7 mg/dL (8.7-10.3); Carbon Dioxide 20.7 mmol/L (21.6-31.8); Chloride 100 mmol/L (96-109); Cholesterol 162.00 mg/dL (0.00-200.00); Glucose 89 mg/dL (70-110); HDL Cholesterol 35.70 mg/dL (40.00-60.00); LDL Cholesterol,Calculated 85.1 mg/dL (0.0-131.0); Potassium 4.1 mmol/L (3.5-5.5); Sodium 137 mmol/L (135-145); Triglycerides 206.00 mg/dL (0.00-149.00); VLDL Calculation 41.20 mg/dL (5.00-40.00)
[2025-02-15] MEDS: FUROSEMIDE 40 MG TAB PO SCH (10:36)
--- NOTE | 2025-02-15 11:21 | P.CRDCN ---
History of Present Illness Consult date: 02/15/25 Consult reason: chest pain History of present illness: This is a 49-year-old male patient of Dr. Henao with past medical history of alcohol abuse, inappropriate tachycardia, dyslipidemia, remote history of tobacco use. Patient was last seen in the office on 02/13/2025. Patient had a recent hospitalization in January at which time he was seen by cardiology for atypical chest pain, acute coronary syndrome ruled out. Patient was also in acute alcohol intoxication state at the time. Patient had follow-up in the office with Dr. Liz, no testing was ordered. He now presents complaining of bad chest pain that started yesterday morning. He states it started while he was on the bus going to his AA meeting. The pain lasted for about 25 minutes and it was in the midsternal area. He also had some dizziness and vomiting and achy all over. Someone from his AA meeting gave him a ride to the hospital. He states the pain was gone by the time he came into the hospital. Regarding tobacco use, patient states he recently quit. Blood pressure 129/84, heart rate 88, pulse ox 95% on room air. -EKG: Sinus tachycardia 115 bpm with no acute ST-T wave changes. -Chest x-ray: Low lung volumes. Generalized hazy appearance which could represent atelectasis versus pulmonary edema. -CTA chest: Nondiagnostic study. Pulmonary embolism cannot be excluded. No acute process. #2 no PE. -Laboratory studies: WBC 9, hemoglobin 10.2, sodium 137, potassium 4.1, creatinine 0.7. Troponin negative x 3. CK1 122. Triglycerides 206, cholesterol 162, LDL 85. -Home cardiac medications: Lasix 40 mg daily, magnesium 1200 mg twice daily, Toprol XL 50 mg daily. -Echocardiogram performed at [facility] on 09/14/2024 revealed normal LV systolic function, mildly dilated aortic root. -Ambulatory EKG performed 04/09/2022 revealed sinus rhythm with average heart rate 90 bpm ranging from 60-120. Review Of Systems: At the time of my exam: CONSTITUTIONAL: Denies fever or chills. HEENT: Denies blurred vision, vision changes, or eye pain. Denies hemoptysis CARDIOVASCULAR: Denies chest pain. Denies orthopnea. Denies PND. Denies palpitations RESPIRATORY: Denies shortness of breath. GASTROINTESTINAL: Denies abdominal pain. Denies nausea or vomiting. HEMATOLOGIC: Denies bleeding disorders. GENITOURINARY: Denies any blood in urine. SKIN: Denies puritis. Denies rash. Physical examination: Gen: This is a 49-year-old male in no acute distress VS: reviewed HEENT: Head is atraumatic, normocephalic. Pupils equal, round. Sclerae is anicteric. NECK: Supple. No JVD. LUNGS: Clear to auscultation. No wheezes or rhonchi. No intercostal retractions. HEART: Regular rate and rhythm. No murmur. ABDOMEN: Soft No tenderness. EXTREMITIES: No bilateral lower extremity edema. No calf tenderness. NEUROLOGICAL: Patient is awake, alert and oriented x3. Assessment: Atypical chest pain acute coronary syndrome ruled out Anemia, chronic History of sinus tachycardia Remote history of tobacco use and dependence History of alcohol abuse Plan: Continue patient's home cardiac medications No need to repeat echocardiogram as this was performed in September Obtain dobutamine stress echocardiogram Stress test is unremarkable, patient is cleared for discharge from cardiology perspective. Cardiology will follow on as-needed basis. Please reconsult for any new concerns. At the time of discharge, patient will follow-up in the office with Dr. Tobias Henao in 2 to 3 weeks. Thank you kindly for this consultation. Nurse practitioner note has been reviewed, I agree with documented findings and plan of care. Patient was seen and examined. Past Medical History Past Medical History: Heart Failure, Hypertension, Osteoarthritis (OA), Seizure Disorder Additional Past Medical History / Comment(s): States had Covid, was hospitalized then developed gastritis and sepsis 11/2023, Hx stomach ulcers and esophageal varices, Hx pancreatitis, anemia, last seizure(2022), Hepatitis A diagnosed in [place] History of Any Multi-Drug Resistant Organisms: None Reported Past Surgical History: Back Surgery, Cholecystectomy, Ear Surgery, Orthopedic Surgery Additional Past Surgical History / Comment(s): EGD, colonoscopy, bilateral myringotomies/tubes, C4-C6 cervical fusion(October 2020), left foot surgery X3 Past Anesthesia/Blood Transfusion Reactions: No Reported Reaction, Motion Sickness Additional Past Anesthesia/Blood Transfusion Reaction / Comment(s): No hx. blood transfusion. Past Psychological History: Anxiety, Depression, PTSD Additional Psychological History / Comment(s): . Smoking Status: Former smoker Past Alcohol Use History: Occasional Additional Past Alcohol Use History / Comment(s): Smoked 1/2 ppd, started smoking in 1992, quit smoking 6 weeks ago. Hx of heavy alcohol use, quit approximately 2019, now drinks occasionally. States goes to AA regularly. Past Drug Use History: None Reported Additional Drug Use History / Comment(s): Past use of cocaine and ecstasy in College. - Past Family History Mother Family Medical History: Thyroid Disorder Father Additional Family Medical History / Comment(s): ETOH. Medications and Allergies Home Medications Medication Instructions Recorded Confirmed Type Folic Acid 1 mg PO DAILY 05/18/17 02/14/25 History Cetirizine HCl [Zyrtec] 10 mg PO DAILY 11/18/23 02/14/25 History traZODone HCL [Desyrel] 50 mg PO HS 11/18/23 02/14/25 History Thiamine [Vitamin B-1] 100 mg PO DAILY #30 tab 11/21/23 02/14/25 Rx Baclofen 5 mg PO TID 07/19/24 02/14/25 History Magnesium Oxide [Mag-Ox] 1,200 mg PO BID 07/19/24 02/14/25 History Metoprolol Succinate (ER) [Toprol 50 mg PO DAILY 07/19/24 02/14/25 History XL] Multivitamins, Thera [Multivitamin 1 tab PO DAILY 07/19/24 02/14/25 History (formulary)] Ondansetron Odt [Zofran ODT] 4 mg PO BID PRN 07/19/24 02/14/25 History Omeprazole 40 mg PO BID #60 cap 07/20/24 02/14/25 Rx Gabapentin 600 mg PO TID 09/13/24 02/14/25 History Meloxicam [Mobic] 15 mg PO DAILY 09/13/24 02/14/25 History ALPRAZolam [Xanax] 0.5 mg PO DAILY PRN 01/02/25 02/14/25 History Furosemide [Lasix] 40 mg PO DAILY #30 tab 01/02/25 02/14/25 Rx Allergies Allergy/AdvReac Type Severity Reaction Status Date / Time Penicillins Allergy Rash/Hives Verified 02/14/25 15:40 bupropion [From Wellbutrin] AdvReac seizure Verified 02/14/25 15:40 Physical Exam Vitals: Vital Signs Temp Pulse Pulse Pulse Resp BP BP 02/15/25 03:36 98.5 F 95 18 127/78 02/14/25 19:32 99.0 F 101 H 16 129/79 02/14/25 18:34 02/14/25 17:42 111 H 18 138/88 02/14/25 15:20 18 02/14/25 14:47 117 H 20 130/97 02/14/25 10:57 123 H 02/14/25 10:44 123 H 18 134/92 02/14/25 10:34 99 F 138 H 24 124/88 Pulse Ox 02/15/25 03:36 94 L 02/14/25 19:32 97 02/14/25 18:34 97 02/14/25 17:42 96 02/14/25 15:20 02/14/25 14:47 98 02/14/25 10:57 02/14/25 10:44 99 02/14/25 10:34 100 Intake and Output 02/14/25 02/15/25 02/15/25 22:59 06:59 14:59 Other: Voiding Method Toilet # Voids 1 1 Weight 97.522 kg Results 02/14/25 11:25 02/15/25 06:45 Cardiac Enzymes 02/14/25 02/14/25 02/14/25 Range/Units 11:25 11:25 14:30 AST 38 (17-59) U/L Troponin I <0.012 <0.012 (0.000-0.034) ng/mL 02/14/25 Range/Units 17:25 AST (17-59) U/L Troponin I <0.012 (0.000-0.034) ng/mL Coagulation 02/14/25 Range/Units 11:25 PT 10.9 (10.0-12.5) sec APTT 22.6 (22.0-30.0) sec CBC 02/14/25 Range/Units 11: WBC 9.06 (4.50-10.00) 10*3/uL RBC 4.21 L (4.40-5.60) 10*6/uL Hgb 10.2 L (13.0-17.0) g/dL Hct 32.8 L (39.6-50.0) % Plt Count 516 H (140-440) 10*3/uL Comprehensive Metabolic Panel 02/14/25 Range/Units 11:25 Sodium 140 (137-145) mmol/L Potassium 4.2 (3.5-5.1) mmol/L Chloride 101 (98-107) mmol/L Carbon Dioxide 16 L (22-30) mmol/L BUN 13 (9-20) mg/dL Creatinine 0.71 (0.66-1.25) mg/dL Glucose 97 (74-99) mg/dL Calcium 9.7 (8.4-10.2) mg/dL AST 38 (17-59) U/L ALT 24 (4-49) U/L Alkaline Phosphatase 83 (38-126) U/L Total Protein 7.3 (6.3-8.2) g/dL Albumin 4.6 (3.5-5.0) g/dL Current Medications Generic Name Dose Route Start Last Admin Trade Name Freq PRN Reason Stop Dose Admin Acetaminophen 325 mg 02/14/25 16:51 02/14/25 21:18 Acetaminophen Tab 325 Mg Tab PO 325 mg Q6HR PRN Administration Fever and/ or Pain Alprazolam 0.5 mg 02/14/25 16:52 Alprazolam 0.5 Mg Tab PO DAILY PRN Anxiety Aspirin 325 mg 02/15/25 09:00 Aspirin 325 Mg Tab PO DAILY [facility] Enoxaparin Sodium 40 mg 02/14/25 14:15 02/14/25 14:40 Enoxaparin 40 Mg/0.4 Ml Syringe SQ 40 mg DAILY [facility] Administration Folic Acid 1 mg 02/15/25 09:00 Folic Acid 1 Mg Tab PO DAILY [facility] Furosemide 40 mg 02/15/25 09:00 Furosemide 40 Mg Tab PO DAILY [facility] Gabapentin 600 mg 02/14/25 22:00 02/14/25 21:18 Gabapentin 300 Mg Cap PO 600 mg TID [facility] Administration Ibuprofen 800 mg 02/14/25 17:54 02/15/25 02:37 Ibuprofen 800 Mg Tab PO 800 mg TID PRN Administration Pain Lidocaine 1 patch 02/14/25 21:00 02/14/25 21:21 Lidocaine 4% Patch TOPICAL Not Given DAILY@2100 [facility] Protocol Magnesium Oxide 1,200 mg 02/14/25 21:00 02/14/25 21:18 Magnesium Oxide 400 Mg Tab PO 1,200 mg BID [facility] Administration Metoprolol Succinate 50 mg 02/14/25 17:00 02/14/25 18:05 Metoprolol Succinate (Er) 50 Mg Tab.Er.24h PO 50 mg DAILY [facility] Administration Multivitamins 1 each 02/15/25 09:00 Multivitamins, Thera 1 Each Tab PO DAILY [facility] Nitroglycerin 0.4 mg 02/14/25 13:59 Nitroglycerin Sl Tabs 0.4 Mg Tab SUBLINGUAL Q5M PRN Chest Pain Ondansetron HCl 4 mg 02/14/25 16:52 02/15/25 03:19 Ondansetron Odt 4 Mg Tab PO 4 mg BID PRN Administration Nausea And Vomiting Pantoprazole Sodium 40 mg 02/14/25 23:45 02/15/25 02:22 Pantoprazole 40 Mg/10 Ml Vial IVP Not Given BID [facility] Thiamine HCl 100 mg 02/15/25 09:00 Thiamine 100 Mg Tab PO DAILY [facility] Trazodone HCl 50 mg 02/14/25 21:00 02/14/25 21:19 Trazodone Hcl 50 Mg Tab PO 50 mg HS [facility] Administration Intake and Output 02/14/25 02/15/25 02/15/25 22:59 06:59 14:59 Other: Voiding Method Toilet # Voids 1 1 Weight 97.522 kg 02/14/25 11:25 02/14/25 11:25
[2025-02-15 14:40] VITALS: BP 116/75; PULSE 93; RESP 17; TEMP 99
--- NOTE | 2025-02-15 14:56 | CA ---
Dobutamine Stress Echocardiogram Report Ash Gutierrez Age: 49 Gender: M : 1975 Exam Date: 02/15/2025 09:24 Exam Location: [facility] Ordering Physician: Luda Mariscal Referring Physician: Davey NICHOLE Typing Checker: SANDRA, Technologist: Ht (in): 71 Wt (lb): 215 Procedure CPT: Indication: Chest Pain ICD-9 Codes: Rhythm: Patient History: CP, MIRTHA, TOB. Cardiac Medications: SEE CHART,,,,, Medications in past 24 hours: Contrast: Total Dose (mL): Stress Results Protocol: Peak Dose (???g/kg/min): Duration (min:sec): Atropine:(mg) Target HR: 146 Double Product: [id number] Resting HR: 83 Resting BP: 111 / 81 Peak HR: 148 Peak BP: 186 / 80 Max Predicted HR: 172 86 % Max Predicted HR Stress Summary: BP Response: Reason for Termination: Target HR Cardiac Symptoms: NO SYMPTOMS ECG Analysis Resting EKG: Stress EKG: Arrhythmia: Echo Analysis Base Echo Analysis: Low Echo Anaylsis: Peak Echo Analysis: Recovery Echo: MEASUREMENTS (Male/Female) Normal Values CONCLUSIONS Reason: Chest discomfort history of smoking No ECG or echocardiographic evidence for ischemia. Occasional PVCs Dr. Chito Bear MD (Electronically Signed) Final Date: 15 February 2025 14:55
--- NOTE | 2025-02-15 23:52 | P.DS ---
Providers Date of admission: 02/14/25 14:04 Attending physician: Leno Antonio MD Consults: 02/14/25 13:59 Consult Physician Urgent Consulting Provider: Deni Wayne Consult Reason/Comments: chest pain Do you want consulting provider notified?: Yes Primary care physician: Landry Lacey Hospital Course: Diagnoses: Chest pain looks musculoskeletal. cardiac causes Ruled out CT of the chest was nondiagnostic for PE Sinus tachycardia Left leg pain. Rule out DVT Hypertension Osteoarthritis history of seizure disorder Anxiety and depression Hospital course: This is a pleasant 49 years old male with past medical history of alcohol use disorder. He has multiple hospitalization to the hospital. This is the sixth visit to the emergency room this year. Last year he visited the emergency room in this facility 8 times per records. Patient also was in this facility about 1 week ago for bilateral leg swelling and he has negative ultrasound of the leg as he confirms to me Patient seen by cleaning specialist, patient had negative stress test. Patient was cleared for discharge by cleaning specialist. Patient chest pain improved but patient complains from generalized bodyaches. Thought secondary to baclofen Mobic, this medication stopped and patient informed and recommended to follow-up as an outpatient and he agrees. Patient denies any other new complaints and agrees for discharge. Cardiology team asking for discharge. Problems and management plan were discussed with the patient and he verbalized understanding and acceptance Patient was found stable and can be discharged home in guarded prognosis however he needs follow-up as an outpatient. Patient was instructed to follow up with PCP within one week and patient agrees Patient was instructed to follow-up with cleaning specialist as per discharge instructions Physical exam Gen: patient is a AAOx3, no distress CVS: S1-S2, RRR, no murmur Lungs: B/L CTA, no wheezing Abdomen: soft, no distention, no tenderness, positive bowel sounds Extremity: no leg edema or induration Time spent more than 35 minutes Patient Condition at Discharge: Fair Plan - Discharge Summary Discharge Rx Participant: No New Discharge Prescriptions: Continue Folic Acid 1 mg PO DAILY Thiamine [Vitamin B-1] 100 mg PO DAILY #30 tab Metoprolol Succinate (ER) [Toprol XL] 50 mg PO DAILY Multivitamins, Thera [Multivitamin (formulary)] 1 tab PO DAILY Magnesium Oxide [Mag-Ox] 1,200 mg PO BID Omeprazole 40 mg PO BID #60 cap traZODone HCL [Desyrel] 50 mg PO HS Cetirizine HCl [Zyrtec] 10 mg PO DAILY Ondansetron Odt [Zofran ODT] 4 mg PO BID PRN PRN Reason: Nausea And Vomiting Gabapentin 600 mg PO TID ALPRAZolam [Xanax] 0.5 mg PO DAILY PRN PRN Reason: Anxiety Furosemide [Lasix] 40 mg PO DAILY #30 tab Discontinued Baclofen 5 mg PO TID Meloxicam [Mobic] 15 mg PO DAILY Discharge Medication List Folic Acid 1 mg PO DAILY 05/18/17 [History] Cetirizine HCl [Zyrtec] 10 mg PO DAILY 11/18/23 [History] traZODone HCL [Desyrel] 50 mg PO HS 11/18/23 [History] Thiamine [Vitamin B-1] 100 mg PO DAILY #30 tab 11/21/23 [Rx] Magnesium Oxide [Mag-Ox] 1,200 mg PO BID 07/19/24 [History] Metoprolol Succinate (ER) [Toprol XL] 50 mg PO DAILY 07/19/24 [History] Multivitamins, Thera [Multivitamin (formulary)] 1 tab PO DAILY 07/19/24 [History] Ondansetron Odt [Zofran ODT] 4 mg PO BID PRN 07/19/24 [History] Omeprazole 40 mg PO BID #60 cap 07/20/24 [Rx] Gabapentin 600 mg PO TID 09/13/24 [History] ALPRAZolam [Xanax] 0.5 mg PO DAILY PRN 01/02/25 [History] Furosemide [Lasix] 40 mg PO DAILY #30 tab 01/02/25 [Rx] Follow up Appointment(s)/Referral(s): Landry Lacey DO [Primary Care Provider] - 1-2 days cSott Henao MD [STAFF PHYSICIAN] - 1 Week Patient Instructions/Handouts: Chest Pain (DC) Activity/Diet/Wound Care/Special Instructions: heart healthy diet activity is restricted till you see your doctor Discharge Disposition: HOME SELF-CARE
== END 2025-02-15 20:10 | disposition home or self-care (01) ==
LOC: EC 10:33 → 6NMEDSUR 14:04
PROVIDERS: ADMIT Internal Medicine; ATTEND Internal Medicine
DX: R07.89 Other chest pain (principal); D64.9 Anemia, unspecified; I11.0 Hypertensive heart disease with heart failure; I50.9 Heart failure, unspecified; R00.0 Tachycardia, unspecified; M79.605 Pain in left leg; M19.90 Unspecified osteoarthritis, unspecified site; F32.A Depression, unspecified; F41.9 Anxiety disorder, unspecified; Z86.16 Personal history of COVID-19; Z87.891 Personal history of nicotine dependence; Z79.1 Long term (current) use of non-steroidal anti-inflammatories (NSAID); Z79.899 Other long term (current) drug therapy; Z88.0 Allergy status to penicillin
CPT/HCPCS: 96372 ×2; 96375 ×2; 96365; 99285; 36415; 93005; 93351; 85379; 80061; 80053; 80048; 82550; 83735; 84484; 85025; 85610; 85730; 71046; 93970; 71275; G0378 ×2; J2270; J2405; J1650 ×2; Q9957; J3475; Q9967; J2470

== ENCOUNTER 2025-03-02 19:45 | Emergency (ER) | payer MEDICARE ==
--- NOTE | 2025-03-02 20:32 | ED ---
Nausea/Vomiting/Diarrhea HPI - General Chief complaint: Nausea/Vomiting/Diarrhea Stated complaint: Chest Congestion,Headache Time Seen by Provider: 03/02/25 20:21 Source: patient Mode of arrival: wheelchair - Related Data Home Medications Medication Instructions Recorded Confirmed Folic Acid 1 mg PO DAILY 05/18/17 02/14/25 Cetirizine HCl [Zyrtec] 10 mg PO DAILY 11/18/23 02/14/25 traZODone HCL [Desyrel] 50 mg PO HS 11/18/23 02/14/25 Magnesium Oxide [Mag-Ox] 1,200 mg PO BID 07/19/24 02/14/25 Metoprolol Succinate (ER) [Toprol 50 mg PO DAILY 07/19/24 02/14/25 XL] Multivitamins, Thera [Multivitamin 1 tab PO DAILY 07/19/24 02/14/25 (formulary)] Ondansetron Odt [Zofran ODT] 4 mg PO BID PRN 07/19/24 02/14/25 Gabapentin 600 mg PO TID 09/13/24 02/14/25 ALPRAZolam [Xanax] 0.5 mg PO DAILY PRN 01/02/25 02/14/25 Previous Rx's Medication Instructions Recorded Thiamine [Vitamin B-1] 100 mg PO DAILY #30 tab 11/21/23 Omeprazole 40 mg PO BID #60 cap 07/20/24 Furosemide [Lasix] 40 mg PO DAILY #30 tab 01/02/25 Allergies Allergy/AdvReac Type Severity Reaction Status Date / Time Penicillins Allergy Rash/Hives Verified 03/02/25 20:25 bupropion [From Wellbutrin] AdvReac seizure Verified 03/02/25 20:25 Review of Systems ROS Statement: Those systems with pertinent positive or pertinent negative responses have been documented in the HPI. ROS Other: All systems not noted in ROS Statement are negative. Past Medical History Past Medical History: Heart Failure, Hypertension, Osteoarthritis (OA), Seizure Disorder Additional Past Medical History / Comment(s): States had Covid, was hospitalized then developed gastritis and sepsis 11/2023, Hx stomach ulcers and esophageal varices, Hx pancreatitis, anemia, last seizure(2022), Hepatitis A diagnosed in [place] History of Any Multi-Drug Resistant Organisms: None Reported Past Surgical History: Back Surgery, Cholecystectomy, Ear Surgery, Orthopedic Surgery Additional Past Surgical History / Comment(s): EGD, colonoscopy, bilateral myringotomies/tubes, C4-C6 cervical fusion(October 2020), left foot surgery X3 Past Anesthesia/Blood Transfusion Reactions: No Reported Reaction, Motion Sickness Additional Past Anesthesia/Blood Transfusion Reaction / Comment(s): No hx. blood transfusion. Past Psychological History: Anxiety, Depression, PTSD Smoking Status: Former smoker Past Alcohol Use History: Occasional Past Drug Use History: None Reported - Past Family History Mother Family Medical History: Thyroid Disorder Father Additional Family Medical History / Comment(s): ETOH. Course Vital Signs 03/02/25 20:21 Temperature 99.2 F Pulse Rate 122 H Respiratory 18 Rate Blood Pressure 119/87 O2 Sat by Pulse 98 Oximetry Disposition Referrals: Landry Lacey DO [Primary Care Provider] - 1-2 days
--- NOTE | 2025-03-02 21:08 | ED ---
General Adult HPI - General Chief complaint: Nausea/Vomiting/Diarrhea Stated complaint: Chest Congestion,Headache Time Seen by Provider: 03/02/25 20:21 Source: patient Mode of arrival: wheelchair - History of Present Illness Initial comments: 49-year-old male presenting with chief complaint of cough and congestion. States that this has been ongoing since Wednesday. States that he feels like he has phlegm in his chest that he cannot cough up. He does admit to some shortness of breath as well. There is some chest soreness from coughing. Patient reports some diarrhea. No nausea or vomiting. Some abdominal pain from coughing. He does have a history of alcoholism, his last drink was last month. States that he is feeling very shaky and anxious today and thinks that he may be going through delayed withdrawals. No fever. - Related Data Home Medications Medication Instructions Recorded Confirmed Folic Acid 1 mg PO DAILY 05/18/17 02/14/25 Cetirizine HCl [Zyrtec] 10 mg PO DAILY 11/18/23 02/14/25 traZODone HCL [Desyrel] 50 mg PO HS 11/18/23 02/14/25 Magnesium Oxide [Mag-Ox] 1,200 mg PO BID 07/19/24 02/14/25 Metoprolol Succinate (ER) [Toprol 50 mg PO DAILY 07/19/24 02/14/25 XL] Multivitamins, Thera [Multivitamin 1 tab PO DAILY 07/19/24 02/14/25 (formulary)] Ondansetron Odt [Zofran ODT] 4 mg PO BID PRN 07/19/24 02/14/25 Gabapentin 600 mg PO TID 09/13/24 02/14/25 ALPRAZolam [Xanax] 0.5 mg PO DAILY PRN 01/02/25 02/14/25 Previous Rx's Medication Instructions Recorded Thiamine [Vitamin B-1] 100 mg PO DAILY #30 tab 11/21/23 Omeprazole 40 mg PO BID #60 cap 07/20/24 Furosemide [Lasix] 40 mg PO DAILY #30 tab 01/02/25 Allergies Allergy/AdvReac Type Severity Reaction Status Date / Time Penicillins Allergy Rash/Hives Verified 03/02/25 20:25 bupropion [From Wellbutrin] AdvReac seizure Verified 03/02/25 20:25 Review of Systems ROS Statement: Those systems with pertinent positive or pertinent negative responses have been documented in the HPI. ROS Other: All systems not noted in ROS Statement are negative. Past Medical History Past Medical History: Heart Failure, Hypertension, Osteoarthritis (OA), Seizure Disorder Additional Past Medical History / Comment(s): States had Covid, was hospitalized then developed gastritis and sepsis 11/2023, Hx stomach ulcers and esophageal varices, Hx pancreatitis, anemia, last seizure(2022), Hepatitis A diagnosed in [place] History of Any Multi-Drug Resistant Organisms: None Reported Past Surgical History: Back Surgery, Cholecystectomy, Ear Surgery, Orthopedic Surgery Additional Past Surgical History / Comment(s): EGD, colonoscopy, bilateral myringotomies/tubes, C4-C6 cervical fusion(October 2020), left foot surgery X3 Past Anesthesia/Blood Transfusion Reactions: No Reported Reaction, Motion Sickness Additional Past Anesthesia/Blood Transfusion Reaction / Comment(s): No hx. blood transfusion. Past Psychological History: Anxiety, Depression, PTSD Smoking Status: Former smoker Past Alcohol Use History: Occasional Past Drug Use History: None Reported - Past Family History Mother Family Medical History: Thyroid Disorder Father Additional Family Medical History / Comment(s): ETOH. General Exam General appearance: alert, in no apparent distress Head exam: Present: atraumatic, normocephalic, normal inspection Eye exam: Present: normal appearance, EOMI Neck exam: Present: normal inspection. Absent: meningismus Respiratory exam: Present: normal lung sounds bilaterally. Absent: respiratory distress, wheezes, rales, rhonchi, stridor Cardiovascular Exam: Present: regular rate, normal rhythm, normal heart sounds. Absent: systolic murmur, diastolic murmur, rubs, gallop, clicks Neurological exam: Present: alert, oriented X3 Psychiatric exam: Present: normal affect, normal mood Skin exam: Present: warm, dry, normal color Course Vital Signs 03/02/25 03/02/25 03/02/25 20:21 21:56 23:21 Temperature 99.2 F 98.2 F Pulse Rate 122 H 102 H 101 H Respiratory 18 16 17 Rate Blood Pressure 119/87 103/73 O2 Sat by Pulse 98 97 100 Oximetry Medical Decision Making - Medical Decision Making Was pt. sent in by a medical professional or institution (, PA, HELPDESK ADMINISTRATOR, urgent care, hospital, or long term...) When possible be specific @ -No Did you speak to anyone other than the patient for history (EMS, parent, family, police, friend...)? What history was obtained from this source @ -No Did you review nursing and triage notes (agree or disagree)? Why? @ -I reviewed and agree with nursing and triage notes Were old charts reviewed (outside hosp., previous admission, EMS record, old EKG, old radiological studies, urgent care reports/EKG's, long term records)? Report findings @ -No old charts were reviewed Differential Diagnosis (chest pain, altered mental status, abdominal pain women, abdominal pain men, vaginal bleeding, weakness, fever, dyspnea, syncope, head ache, dizziness, GI bleed, back pain, seizure, CVA, palpatations, mental health, musculoskeletal)? @ -Differential includes URI, pneumonia, bronchitis, not an all-inclusive list EKG interpreted by me (3pts min.). @ -As above X-rays interpreted by me (1pt min.). @ -Chest x-ray shows no acute process CT interpreted by me (1pt min.). @ -None done U/S interpreted by me (1pt. min.). @ -None done What testing was considered but not performed or refused? (CT, X-rays, U/S, labs)? Why? @ -None What meds were considered but not given or refused? Why? @ -None Did you discuss the management of the patient with other professionals (professionals i.e. , PA, HELPDESK ADMINISTRATOR, lab, RT, psych nurse, psychologist social, silhouette artist, teacher, adult parole officer, block and case maker)? Give summary @ -No Was smoking cessation discussed for >3mins.? @ -No Was critical care preformed (if so, how long)? @ -No Were there social determinants of health that impacted care today? How? (Homelessness, low income, unemployed, alcoholism, drug addiction, transportation, low edu. Level, literacy, decrease access to med. care, [facility], rehab)? @ -No Was there de-escalation of care discussed even if they declined (Discuss DNR or withdrawal of care, Hospice)? DNR status @ -No What co-morbidities impacted this encounter? (DM, HTN, Smoking, COPD, CAD, Cancer, CVA, ARF, Chemo, Hep., AIDS, mental health diagnosis, sleep apnea, morbid obesity)? @ -None Was patient admitted / discharged? Hospital course, mention meds given and route, prescriptions, significant lab abnormalities, going to OR and other pertinent info. @ -49-year-old male presenting with chief complaint of cough and congestion. Also admits to nausea and diarrhea. History and physical examination are conducted. Potassium 3.1, patient received oral replacement. He is feeling anxious and does have history of alcohol abuse, states that he has not drank since January. He was given 1 mg of Ativan. Serum alcohol is 391 and patient later admits that he drank today. Negative for influenza, RSV, COVID. Chest x- ray shows no acute process. Patient is observed until clinically sober, he is able to steadily ambulate and answer all questions appropriately. He will be safely discharged home in a cab. Follow-up with PCP. Report back to ER with any new or worsening symptoms. Discussed return parameters and answered all questions. Patient conveyed verbal understanding and agreed to the plan. I discussed this case in detail with my attending Dr. Gerard Undiagnosed new problem with uncertain prognosis? @ -No Drug Therapy requiring intensive monitoring for toxicity (Heparin, Nitro, Insulin, Cardizem)? @ -No Were any procedures done? @ -No Diagnosis/symptom? @ -Alcohol intoxication, URI Acute, or Chronic, or Acute on Chronic? @ -Acute Uncomplicated (without systemic symptoms) or Complicated (systemic symptoms)? @ -Uncomplicated Side effects of treatment? @ -No Exacerbation, Progression, or Severe Exacerbation? @ -No Poses a threat to life or bodily function? How? (Chest pain, USA, [place], pneumonia, PE, COPD, DKA, ARF, appy, cholecystitis, CVA, Diverticulitis, Homicidal, Suicidal, threat to staff... and all critical care pts) @ -Unlikely - Lab Data Result diagrams: 03/02/25 21:17 03/02/25 21:17 Lab Results 03/02/25 03/02/25 03/02/25 Range/Units 21:17 21:17 21:17 WBC 7.66 (4.50-10.00) 10*3/uL RBC 4.43 (4.40-5.60) 10*6/uL Hgb 10.7 L (13.0-17.0) g/dL Hct 34.0 L (39.6-50.0) % MCV 76.7 L (80.0-97.0) fL MCH 24.2 L (27.0-32.0) pg MCHC 31.5 L (32.0-37.0) g/dL Plt Count 322 (140-440) 10*3/uL MPV 9.0 L (9.5-12.2) fL Immature Gran % (Auto) 0.3 % Neutrophils % 50.9 % Lymphocytes % 36.7 % Monocytes % 9.9 % Eosinophils % 1.0 % Basophils % 1.2 % Immature Gran # 0.02 (0.00-0.04) 10*3/uL Neutrophils # 3.90 (1.80-7.70) 10*3/uL Lymphocytes # 2.81 (0.90-5.00) 10*3/uL Monocytes # 0.76 (0.20-1.00) 10*3/uL Eosinophils # 0.08 (0.04-0.35) 10*3/uL Basophils # 0.09 (0.00-0.10) 10*3/uL Sodium 142 (137-145) mmol/L Potassium 3.1 L (3.5-5.1) mmol/L Chloride 101 (98-107) mmol/L Carbon Dioxide 18 L (22-30) mmol/L Anion Gap 23 mmol/L BUN 9 (9-20) mg/dL Creatinine 0.65 L (0.66-1.25) mg/dL Est GFR (CKD-EPI)AfAm >90 (>60 ml/min/1.73 sqM) Est GFR (CKD-EPI)NonAf >90 (>60 ml/min/1.73 sqM) Glucose 113 H (74-99) mg/dL Calcium 9.1 (8.4-10.2) mg/dL Total Bilirubin 0.4 (0.2-1.3) mg/dL AST 45 (17-59) U/L ALT 20 (4-49) U/L Alkaline Phosphatase 78 (38-126) U/L Total Protein 7.3 (6.3-8.2) g/dL Albumin 4.6 (3.5-5.0) g/dL Serum Alcohol 391 H* mg/dL Influenza Type A (PCR) Not Detected (Not Detectd) Influenza Type B (PCR) Not Detected (Not Detectd) RSV (PCR) Not Detected (Not Detectd) SARS-CoV-2 (PCR) Not Detected (Not Detectd) Disposition Clinical Impression: Alcohol intoxication, URI (upper respiratory infection) Disposition: HOME SELF-CARE Condition: Fair Instructions (If sedation given, give patient instructions): Upper Respiratory Infection (ED), Alcohol Intoxication (ED) Additional Instructions: Follow-up with your PCP. Report back to ER with any new or worsening symptoms. Is patient prescribed a controlled substance at d/c from ED?: No Referrals: Landry Lacey DO [Primary Care Provider] - 1-2 days Time of Disposition: 23:46
[2025-03-02] MEDS: SODIUM CHLORIDE 0.9% 1,000 ML IV ONE (21:18)
[2025-03-02] MEDS: LORazepam 1 MG/0.5 ML VIAL IV STA (21:19)
[2025-03-02 21:28] LABS: Basophils # (A) 0.09 10*3/uL (0.00-0.10); Basophils % (A) 1.2 %; Eosinophils # (A) 0.08 10*3/uL (0.04-0.35); Eosinophils % (A) 1.0 %; HCT 34.0 % (39.6-50.0); HGB 10.7 g/dL (13.0-17.0); Lymphocytes # (A) 2.81 10*3/uL (0.90-5.00); Lymphocytes % (A) 36.7 %; MCH 24.2 pg (27.0-32.0); MCHC 31.5 g/dL (32.0-37.0); MCV 76.7 fL (80.0-97.0); Monocytes # (A) 0.76 10*3/uL (0.20-1.00); Monocytes % (A) 9.9 %; Neutrophils # (A) 3.90 10*3/uL (1.80-7.70); Neutrophils % (A) 50.9 %; Platelet Count 322 10*3/uL (140-440); RBC 4.43 10*6/uL (4.40-5.60); RDW 18.3 % (11.5-14.5); WBC 7.66 10*3/uL (4.50-10.00)
[2025-03-02 21:39] LABS: ALT 20 U/L (4-49); AST 45 U/L (17-59); African American GFR (CKD) >90 (>60 ml/min/1.73 sqM); Albumin 4.6 g/dL (3.5-5.0); Alkaline Phosphatase 78 U/L (38-126); Anion Gap 23 mmol/L; Blood Urea Nitrogen 9 mg/dL (9-20); Calcium 9.1 mg/dL (8.4-10.2); Carbon Dioxide 18 mmol/L (22-30); Chloride 101 mmol/L (98-107); Glucose 113 mg/dL (74-99); Non-African American GFR(CKD) >90 (>60 ml/min/1.73 sqM); Potassium 3.1 mmol/L (3.5-5.1); Sodium 142 mmol/L (137-145); Total Protein 7.3 g/dL (6.3-8.2)
--- NOTE | 2025-03-02 21:56 | XR ---
EXAMINATION TYPE: XR chest 2V DATE OF EXAM: 03/02/2025 9:52 PM COMPARISON: None. CLINICAL INDICATION: Male, 49 years old with history of cough, Chest pain TECHNIQUE: XR chest 2V views of the chest are obtained. FINDINGS: There is no focal air space opacity. No evidence for pneumothorax. No pleural effusion. The cardiac silhouette size is within normal limits. The osseous structures are grossly intact. IMPRESSION: 1. No acute cardiopulmonary process. [facility], , 03/02/2025 9:54 PM
[2025-03-02 22:04] LABS: RSV Not Detected (Not Detectd)
[2025-03-02 23:24] VITALS: PULSE 101
[2025-03-02] MEDS: POTASSIUM CHLORIDE ER 20 MEQ TAB.ER PO STA (23:24)
[2025-03-03 01:13] VITALS: BP 94/68; RESP 19; TEMP 98.1
== END 2025-03-03 01:25 | disposition home or self-care (01) ==
LOC: EC 19:45
DX: F10.129 Alcohol abuse with intoxication, unspecified (principal); J06.9 Acute upper respiratory infection, unspecified; Z87.891 Personal history of nicotine dependence; Z88.0 Allergy status to penicillin; Z88.8 Allergy status to other drugs, medicaments and biological substances
CPT/HCPCS: 36415; 80053; 85025; 80320; 87636; 71046; 99284; 96374; 96361 ×2; J2060

== ENCOUNTER 2025-03-04 07:59 | Inpatient (IN) | payer MEDICARE, OTHER ==
[2025-03-04] MEDS: SODIUM CHLORIDE 0.9% 1,000 ML IV ONE (08:48)
--- NOTE | 2025-03-04 08:48 | ED ---
General Adult HPI - General Chief complaint: Nausea/Vomiting/Diarrhea Stated complaint: Vomiting Time Seen by Provider: 03/04/25 08:11 Source: patient, RN notes reviewed Mode of arrival: ambulatory Limitations: no limitations - History of Present Illness Initial comments: Patient is a 49-year-old male present to the emergency department with concerns with nausea and vomiting. Patient was in the emergency department a couple of days ago with similar symptoms. Patient has vomiting nausea and has had some diarrhea. Mild abdominal discomfort. Patient states he felt warm earlier, unclear if he may have had a fever. Patient denies alcohol use as he is in recovery. Patient denies chronic abdominal problems. Patient states he does have a history of pancreatitis however not for many years. - Related Data Home Medications Medication Instructions Recorded Confirmed Folic Acid 1 mg PO DAILY 05/18/17 02/14/25 Cetirizine HCl [Zyrtec] 10 mg PO DAILY 11/18/23 02/14/25 traZODone HCL [Desyrel] 50 mg PO HS 11/18/23 02/14/25 Magnesium Oxide [Mag-Ox] 1,200 mg PO BID 07/19/24 02/14/25 Metoprolol Succinate (ER) [Toprol 50 mg PO DAILY 07/19/24 02/14/25 XL] Multivitamins, Thera [Multivitamin 1 tab PO DAILY 07/19/24 02/14/25 (formulary)] Ondansetron Odt [Zofran ODT] 4 mg PO BID PRN 07/19/24 02/14/25 Gabapentin 600 mg PO TID 09/13/24 02/14/25 ALPRAZolam [Xanax] 0.5 mg PO DAILY PRN 01/02/25 02/14/25 Previous Rx's Medication Instructions Recorded Thiamine [Vitamin B-1] 100 mg PO DAILY #30 tab 11/21/23 Omeprazole 40 mg PO BID #60 cap 07/20/24 Furosemide [Lasix] 40 mg PO DAILY #30 tab 01/02/25 Allergies Allergy/AdvReac Type Severity Reaction Status Date / Time Penicillins Allergy Rash/Hives Verified 03/04/25 08:06 bupropion [From Wellbutrin] AdvReac seizure Verified 03/04/25 08:06 Review of Systems ROS Statement: Those systems with pertinent positive or pertinent negative responses have been documented in the HPI. ROS Other: All systems not noted in ROS Statement are negative. Constitutional: Denies: fever Eyes: Denies: eye pain ENT: Denies: ear pain Respiratory: Denies: dyspnea Cardiovascular: Denies: chest pain Gastrointestinal: Reports: as per HPI, abdominal pain, nausea, vomiting, diarrhea Musculoskeletal: Denies: back pain Neurological: Denies: weakness Past Medical History Past Medical History: Heart Failure, Hypertension, Osteoarthritis (OA), Seizure Disorder Additional Past Medical History / Comment(s): States had Covid, was hospitalized then developed gastritis and sepsis 11/2023, Hx stomach ulcers and esophageal varices, Hx pancreatitis, anemia, last seizure(2022), Hepatitis A diagnosed in [place] History of Any Multi-Drug Resistant Organisms: None Reported Past Surgical History: Back Surgery, Cholecystectomy, Ear Surgery, Orthopedic Surgery Additional Past Surgical History / Comment(s): EGD, colonoscopy, bilateral myringotomies/tubes, C4-C6 cervical fusion(October 2020), left foot surgery X3 Past Anesthesia/Blood Transfusion Reactions: No Reported Reaction, Motion Sickness Additional Past Anesthesia/Blood Transfusion Reaction / Comment(s): No hx. blood transfusion. Past Psychological History: Anxiety, Depression, PTSD Smoking Status: Former smoker Past Alcohol Use History: Occasional Past Drug Use History: None Reported - Past Family History Mother Family Medical History: Thyroid Disorder Father Additional Family Medical History / Comment(s): ETOH. General Exam Limitations: no limitations General appearance: alert, in no apparent distress Head exam: Present: normocephalic Eye exam: Present: normal appearance Neck exam: Present: normal inspection Respiratory exam: Present: normal lung sounds bilaterally Cardiovascular Exam: Present: normal rhythm, tachycardia Expanded Peripheral pulses: 2+: Posterior Tibialis (R), Posterior Tibialis (L) GI/Abdominal exam: Present: soft, tenderness (Mild epigastric tenderness to palpation), normal bowel sounds. Absent: distended, guarding, rebound, rigid, pulsatile mass Extremities exam: Present: normal inspection Neurological exam: Present: alert Psychiatric exam: Present: normal affect, normal mood Skin exam: Present: normal color Course Vital Signs 03/04/25 03/04/25 03/04/25 08:05 08:23 09:01 Temperature 98.4 F Pulse Rate 122 H 138 H 110 H Respiratory 22 22 18 Rate Blood Pressure 134/90 138/109 110/83 O2 Sat by Pulse 99 100 98 Oximetry 03/04/25 03/04/25 03/04/25 09:48 11:18 11:45 Temperature 99.2 F 100.2 F H Pulse Rate 126 H 107 H 110 H Respiratory 18 17 22 Rate Blood Pressure 128/97 137/99 133/88 O2 Sat by Pulse 96 98 99 Oximetry Medical Decision Making - Medical Decision Making Was pt. sent in by a medical professional or institution (, SUNG, LACING CUTTER, urgent care, hospital, or care home...) When possible be specific @ -No Did you speak to anyone other than the patient for history (EMS, parent, family, police, friend...)? What history was obtained from this source @ -No Did you review nursing and triage notes (agree or disagree)? Why? @ -I reviewed and agree with nursing and triage notes Were old charts reviewed (outside hosp., previous admission, EMS record, old EKG, old radiological studies, urgent care reports/EKG's, care home records)? Report findings @ -Multiple previous charts reviewed including inpatient with frequent heart rate elevation. Differential Diagnosis (chest pain, altered mental status, abdominal pain women, abdominal pain men, vaginal bleeding, weakness, fever, dyspnea, syncope, headache, dizziness, GI bleed, back pain, seizure, CVA, palpatations, mental health, musculoskeletal)? @ -Not applicable EKG interpreted by me (3pts min.). @ -As above X-rays interpreted by me (1pt min.). @ -Abdominal x-ray reveals no acute abnormality CT interpreted by me (1pt min.). @ -CT abdomen pelvis with nonspecific mesentery inflammation. Small bowel loops thickening adjacent to this U/S interpreted by me (1pt. min.). @ -None done What testing was considered but not performed or refused? (CT, X-rays, U/S, labs)? Why? @ -None What meds were considered but not given or refused? Why? @ -None Did you discuss the management of the patient with other professionals (professionals i.e. SUNG Salvador, LACING CUTTER, lab, RT, psych nurse, social work case manager, catalog librarian, teacher, chief fundraising officer, case management social worker)? Give summary @ -Case discussed with practitioner Kolby who will admit [facility] physician covering for hospital call Was smoking cessation discussed for >3mins.? @ -No Was critical care preformed (if so, how long)? @ -No Were there social determinants of health that impacted care today? How? (Homelessness, low income, unemployed, alcoholism, drug addiction, transportation, low edu. Level, literacy, decrease access to med. care, longterm, rehab)? @ -No Was there de-escalation of care discussed even if they declined (Discuss DNR or withdrawal of care, Hospice)? DNR status @ -No What co-morbidities impacted this encounter? (DM, HTN, Smoking, COPD, CAD, Cancer, CVA, ARF, Chemo, Hep., AIDS, mental health diagnosis, sleep apnea, m orbid obesity)? @ -Alcohol use Was patient admitted / discharged? Hospital course, mention meds given and route, prescriptions, significant lab abnormalities, going to OR and other pertinent info. @ -Patient presents with nausea vomiting abdominal pain. Patient appears to be withdrawing from alcohol. In addition patient now developed fever while in the emergency department with nonspecific CT findings. Patient will be admitted with consult with surgery. Patient reevaluated and updated. Admission orders written. Undiagnosed new problem with uncertain prognosis? @ -No Drug Therapy requiring intensive monitoring for toxicity (Heparin, Nitro, Insulin, Cardizem)? @ -No Were any procedures done? @ -No Diagnosis/symptom? @ -Abdominal pain, alcohol withdrawal Acute, or Chronic, or Acute on Chronic? @ -Acute, acute on chronic Uncomplicated (without systemic symptoms) or Complicated (systemic symptoms)? @ -Default Side effects of treatment? @ -No Exacerbation, Progression, or Severe Exacerbation? @ -No Poses a threat to life or bodily function? How? (Chest pain, USA, [place], pneumonia, PE, COPD, DKA, ARF, appy, cholecystitis, CVA, Diverticulitis, Homicidal, Suicidal, threat to staff... and all critical care pts) @ -No - Lab Data Result diagrams: 03/04/25 08:44 03/04/25 08:44 Lab Results 03/04/25 03/04/25 Range/Units 08:44 08:44 WBC 10.39 H (4.50-10.00) 10*3/uL RBC 4.66 (4.40-5.60) 10*6/uL Hgb 11.3 L (13.0-17.0) g/dL Hct 36.1 L (39.6-50.0) % MCV 77.5 L (80.0-97.0) fL MCH 24.2 L (27.0-32.0) pg MCHC 31.3 L (32.0-37.0) g/dL Plt Count 338 (140-440) 10*3/uL MPV 9.0 L (9.5-12.2) fL Immature Gran % (Auto) 0.4 % Neutrophils % 77.0 % Lymphocytes % 16.7 % Monocytes % 4.9 % Eosinophils % 0.1 % Basophils % 0.9 % Immature Gran # 0.04 (0.00-0.04) 10*3/uL Neutrophils # 8.01 H (1.80-7.70) 10*3/uL Lymphocytes # 1.73 (0.90-5.00) 10*3/uL Monocytes # 0.51 (0.20-1.00) 10*3/uL Eosinophils # 0.01 L (0.04-0.35) 10*3/uL Basophils # 0.09 (0.00-0.10) 10*3/uL Sodium 139 (137-145) mmol/L Potassium 3.8 (3.5-5.1) mmol/L Chloride 102 (98-107) mmol/L Carbon Dioxide 16 L (22-30) mmol/L Anion Gap 21 mmol/L BUN 10 (9-20) mg/dL Creatinine 0.59 L (0.66-1.25) mg/dL Est GFR (CKD-EPI)AfAm >90 (>60 ml/min/1.73 sqM) Est GFR (CKD-EPI)NonAf >90 (>60 ml/min/1.73 sqM) Glucose 102 H (74-99) mg/dL Calcium 9.8 (8.4-10.2) mg/dL Total Bilirubin 0.6 (0.2-1.3) mg/dL AST 42 (17-59) U/L ALT 21 (4-49) U/L Alkaline Phosphatase 87 (38-126) U/L Total Protein 8.1 (6.3-8.2) g/dL Albumin 5.1 H (3.5-5.0) g/dL Amylase 49 (30-110) U/L Lipase 135 (23-300) U/L Serum Alcohol 66 mg/dL Disposition Clinical Impression: Abdominal pain Disposition: ADMITTED IP TO THIS HOSP Is patient prescribed a controlled substance at d/c from ED?: No Referrals: Landry Lacey DO [Primary Care Provider] - 1-2 days Time of Disposition: 12:22
[2025-03-04] MEDS: DICYCLOMINE 10 MG/ML 2 ML AMP IM STA (08:49)
[2025-03-04] MEDS: ONDANSETRON 4 MG/2 ML VIAL IVP STA ×2 (08:49→11:58)
[2025-03-04] MEDS: FAMOTIDINE 20 MG/2 ML VIAL IV STA (08:49)
[2025-03-04 08:53] LABS: Basophils # (A) 0.09 10*3/uL (0.00-0.10); Basophils % (A) 0.9 %; Eosinophils # (A) 0.01 10*3/uL (0.04-0.35); Eosinophils % (A) 0.1 %; HCT 36.1 % (39.6-50.0); HGB 11.3 g/dL (13.0-17.0); Lymphocytes # (A) 1.73 10*3/uL (0.90-5.00); Lymphocytes % (A) 16.7 %; MCH 24.2 pg (27.0-32.0); MCHC 31.3 g/dL (32.0-37.0); MCV 77.5 fL (80.0-97.0); Monocytes # (A) 0.51 10*3/uL (0.20-1.00); Monocytes % (A) 4.9 %; Neutrophils # (A) 8.01 10*3/uL (1.80-7.70); Neutrophils % (A) 77.0 %; Platelet Count 338 10*3/uL (140-440); RBC 4.66 10*6/uL (4.40-5.60); RDW 18.7 % (11.5-14.5); WBC 10.39 10*3/uL (4.50-10.00)
[2025-03-04 09:07] LABS: ALT 21 U/L (4-49); AST 42 U/L (17-59); African American GFR (CKD) >90 (>60 ml/min/1.73 sqM); Albumin 5.1 g/dL (3.5-5.0); Alkaline Phosphatase 87 U/L (38-126); Amylase 49 U/L (30-110); Anion Gap 21 mmol/L; Blood Urea Nitrogen 10 mg/dL (9-20); Calcium 9.8 mg/dL (8.4-10.2); Carbon Dioxide 16 mmol/L (22-30); Chloride 102 mmol/L (98-107); Glucose 102 mg/dL (74-99); Lipase 135 U/L (23-300); Non-African American GFR(CKD) >90 (>60 ml/min/1.73 sqM); Potassium 3.8 mmol/L (3.5-5.1); Sodium 139 mmol/L (137-145); Total Protein 8.1 g/dL (6.3-8.2)
[2025-03-04] MEDS: LORazepam 1 MG/0.5 ML VIAL IV STA (09:11)
--- NOTE | 2025-03-04 09:14 | XR ---
EXAMINATION TYPE: XR KUB DATE OF EXAM: 03/04/2025 9:05 AM COMPARISON: None. CLINICAL INDICATION: Male, 49 years old with history of abdominal pain, TECHNIQUE: Single view of the abdomen. FINDINGS: Small bowel demonstrates no evidence for dilatation or air fluid levels. Paucity of Gas and fecal material is seen in non-distended colon. No convincing evidence for pneumoperitoneum. No unusual calcifications. The lung bases are clear. The osseous structures are intact. IMPRESSION: 1. Overall nonobstructive bowel gas pattern. [facility], , 03/04/2025 9:11 AM
[2025-03-04] MEDS: MORPHINE SULFATE 4 MG/ML SYRINGE IVP STA (10:21)
--- NOTE | 2025-03-04 11:44 | CT ---
EXAMINATION TYPE: CT abdomen pelvis w con DATE OF EXAM: 03/04/2025 11:20 AM COMPARISON: None. CLINICAL INDICATION: Male, 49 years old with history of abp, TECHNIQUE:CT scan of the abdomen and pelvis is performed without Oral Contrast and with IV Contrast, patient injected with 100 mL of Isovue 300. CT DLP: mGycm, Automated exposure control for dose reduction was used. FINDINGS: LUNG BASES-: No visible nodule. No infiltrate. Small sliding-type hiatal hernia with mild wall thick ening may reflect esophagitis. LIVER/GB: The gallbladder is surgically absent. There is evidence of hepatic steatosis. No space occupying hepatic lesion. Biliary tree is of normal caliber. PANCREAS: No inflammation. No distinct mass. SPLEEN: No splenic enlargement. No lesion seen. ADRENALS: No nodule. No thickening. KIDNEYS/BLADDER: No hydronephrosis. Nonobstructing nephrolithiasis seen bilaterally. No distinct verito al mass. Urinary bladder grossly unremarkable. BOWEL: What appears to be the appendix appears stable. There may be an appendicolith however no infla mmatory process is seen of the appendix. Within the within the lower abdominal mesentery there is inf lammatory change seen best on axial image 68 of 119 as well as coronal image 52 of 133. This is nonsp ecific and could be related to a vascular insult or enteritis. Adjacent small bowel loops demonstrate mild wall thickening. Correlate clinically. No free air or abscess seen. GENITAL ORGANS: No gross abnormality. LYMPH NODES: No greater than 1cm abdominal or pelvic lymph nodes are appreciated. AORTA: No significant abnormality. OSSEOUS STRUCTURES: No significant abnormality is seen. OTHER: No significant additional abnormality is seen. IMPRESSION: 1. Within the within the lower abdominal mesentery there is inflammatory change seen best on axial im age 69 of 119 as well as coronal image 52 of 133. This is nonspecific and could be related to a vascu lar insult or enteritis. Adjacent small bowel loops demonstrate mild wall thickening. Correlate clini lemuel. [facility], , 03/04/2025 11:42 AM
[2025-03-04] MEDS: ACETAMINOPHEN IV (For NPO) 1,000 MG in EMPTY BAG 1 BAG IVPB STA (12:07)
[2025-03-04] MEDS ORDERED: ONDANSETRON 4 MG/2 ML VIAL IVP PRN (12:23)
[2025-03-04] MEDS ORDERED: NALOXONE 0.4 MG/ML 1 ML VIAL IV PRN (12:23)
[2025-03-04] MEDS ORDERED: LORazepam 0.5 MG TAB PO PRN (12:23)
[2025-03-04] MEDS: LORazepam 1 MG TAB PO PRN ×3 (12:40→18:30)
[2025-03-04] MEDS: MORPHINE SULFATE 4 MG/ML SYRINGE IV PRN (12:41)
[2025-03-04] MEDS: SODIUM CHLORIDE 0.9% 1,000 ML IV SCH (12:42)
[2025-03-04] MEDS: THIAMINE 100 MG/ML 2 ML VIAL IM STA (12:42)
[2025-03-04] MEDS ORDERED: PROCHLORPERAZINE INJ 10 MG/2 ML VIAL IVP PRN (15:11)
[2025-03-04] MEDS: GABAPENTIN 300 MG CAP PO SCH (15:48)
--- NOTE | 2025-03-04 17:37 | P.HPIM ---
History of Present Illness H&P Date: 03/04/25 History of Presenting Illness: Patient is a 49-year-old male with a past medical history of alcohol abuse, hypertension, stomach ulcers, esophageal varices, recurrent episodes of pancreatitis, seizure disorder, anxiety with depression, and PTSD.. He presented to the emergency department with a chief complaint of intractable nausea, vomiting, and diarrhea. He reports symptoms began a couple of days ago and have been on relentless. Patient does have a known history of alcohol abuse but currently denies use stating he is in recovery, however patient has had multiple admission over the last 2 months in which she was found to be intoxicated with blood alcohol level greater than 300 and currently blood alcohol level is 66. Patient denies having any hematemesis, known fevers, chills, dizziness, lightheadedness, headache, chest pain, palpitations, shortness of breath, difficulty or changes with urinary function, or experiencing any numbness/tingling/weakness/swelling in his extremities. Upon arrival to our facility, patient underwent evaluation in the emergency department. Vital signs on arrival show blood pressure 134/90, heart rate 122, respiratory rate 22, temp 98.4 F, and SpO2 of 99% on room air. Shortly after arrival patient's temp elevated to 100.2 F. Labs were completed and reviewed. CBC showing leukocytosis with WBC count of 10.39 and microcytic anemia with hemoglobin of 11.3, MCV of 77.5, MCH of 24.2, and MCHC of 31.3. BMP showing a high anion gap metabolic acidosis with chloride of 102, bicarb of 16, and anion gap of 21. Blood glucose 102. Lactic acid 1.3. Calcium 9.8. Liver profile unremarkable. Serum alcohol level 66. KUB completed showing overall nonobstructive bowel gas pattern. CT abdomen and pelvis with IV contrast re vealed within the lower abdominal mesentery there is inflammatory changes reporting nonspecific and could be related to vascular insult or enteritis with adjacent small bowel loops demonstrating mild wall thickening. Review of systems: Pertinent positives and negatives as discussed in HPI, a complete review of systems was performed and all other systems are negative. Physical exam: Vital signs reviewed and stable. General: Nontoxic, no distress and appears stated age. Derm: Skin warm and dry, normal coloration for ethnicity. Head: Atraumatic, normocephalic and symmetric. Eyes: EOM's intact, no lid lag, and anicteric sclera Mouth: no lip lesions, mucus membranes moist Cardiovascular: regular rate and rhythm with normal S1S2, no murmur, positive posterior tibial pulses bilaterally, and cap refill < 2 seconds. Lungs: Respirations even, regular, and unlabored on room air. Lungs CTA bilaterally, no rhonchi, no rales, no wheezing, and no accessory muscle usage. Abdominal: soft, bowel sounds x 4 quadrants, diffuse tenderness upon palpation worse in upper quadrants and epigastric region. No guarding, no appreciable organomegaly Ext: ROM intact. No gross muscle atrophy, no edema, no contractures Neuro: Speech clear, face symmetrical and CN II-XII grossly intact with no noted focal neuro deficits Psych: Alert and oriented to person, place, time, and situation. Appropriate and pleasant affect. Assessment and Plan of Care: Gastric enteritis, possibly secondary to gastritis resulting from alcohol withdraw Intractable nausea, vomiting, and diarrhea likely secondary to above SIRS/sepsis on arrival secondary to tachycardia, pyrexia, tachypnea, and leukocytosis - Will start patient empirically on IV antibiotics with Rocephin 2 g every 24 hours and Flagyl 500 mg IV every 6 hours pending further recommendations from general surgery. General Surgeon consulted by ED physician secondary to abnormal CT findings. Clear liquid diet IV fluid hydration with 0.9% normal saline at 130 cc/h. Zofran 4 mg IVP every 8 hours as needed for nausea and vomiting and Compazine 10 mg IVP every 6 hours as needed for nausea. GI prophylaxis with Protonix 40 mg IVP daily. Symptomatic care and pain management with Tylenol 650 mg every 6 hours as needed for mild pain/fever, [place] 5/325 mg tablets every 4 hours as needed for moderate pain, and morphine 4 mg IVP every 4 hours as needed for severe pain. Order placed for blood culture, stool culture, and C. difficile. Alcohol withdrawal and active alcoholic -Order placed for monitoring of CIWA scores and patient to be medicated with Ativan 0.5 mg every 4 hours as needed for CIWA score of 4-5, Ativan 1 mg every 4 hours for CIWA score of 6-7, Ativan 2 mg every 3 hours CIWA score of 8-9, and Ativan 2 mg every 2 hours forr CIWA score of 10 or greater. -Continuous IV hydration. -Thiamine 100 mg daily, and Multivitamin daily, and Folate 1 mg daily -Seizure, fall, aspiration, and elopement precautions in place. -Urine drug screen -Continued close monitoring of electrolytes and replace as needed. -Telemetry monitoring. Anxiety with depression PTSD Continue trazodone 50 mg nightly, Neurontin 600 mg 3 times daily, and Xanax 0.5 mg daily as needed for anxiety. Data and imaging reviewed: As stated above in HPI. CODE STATUS: Full code DVT prophylaxis: Lovenox Anticipated discharge date: Pending clinical course Anticipated discharge place: Pending clinical course Patient was seen independently by Nurse Practitioner. This document was prepared using [employer], dictation software. Please allow for errors in hand worker while rare they do occur. Kolby Schmitz NP rendered care for this patient independently, reviewed the findings and plan as documented in the note above and agree with plan. I did not physically speak with or examine the patient on this date. Past Medical History Past Medical History: Heart Failure, Hypertension, Osteoarthritis (OA), Seizure Disorder Additional Past Medical History / Comment(s): States had Covid, was hospitalized then developed gastritis and sepsis 11/2023, Hx stomach ulcers and esophageal varices, Hx pancreatitis, anemia, last seizure(2022), Hepatitis A diagnosed in [place] History of Any Multi-Drug Resistant Organisms: None Reported Past Surgical History: Back Surgery, Cholecystectomy, Ear Surgery, Orthopedic Surgery Additional Past Surgical History / Comment(s): EGD, colonoscopy, bilateral myringotomies/tubes, C4-C6 cervical fusion(October 2020), left foot surgery X3 Past Anesthesia/Blood Transfusion Reactions: No Reported Reaction, Motion Sickness Additional Past Anesthesia/Blood Transfusion Reaction / Comment(s): No hx. blood transfusion. Past Psychological History: Anxiety, Depression, PTSD Smoking Status: Former smoker Past Alcohol Use History: Occasional Past Drug Use History: None Reported - Past Family History Mother Family Medical History: Thyroid Disorder Father Additional Family Medical History / Comment(s): ETOH. Medications and Allergies Home Medications Medication Instructions Recorded Confirmed Type Folic Acid 1 mg PO DAILY 05/18/17 03/04/25 History Cetirizine HCl [Zyrtec] 10 mg PO DAILY 11/18/23 03/04/25 History traZODone HCL [Desyrel] 50 mg PO HS 11/18/23 03/04/25 History Thiamine [Vitamin B-1] 100 mg PO DAILY #30 tab 11/21/23 03/04/25 Rx Magnesium Oxide [Mag-Ox] 1,200 mg PO BID 07/19/24 03/04/25 History Metoprolol Succinate (ER) [Toprol 50 mg PO DAILY 07/19/24 03/04/25 History XL] Multivitamins, Thera [Multivitamin 1 tab PO DAILY 07/19/24 03/04/25 History (formulary)] Ondansetron Odt [Zofran ODT] 4 mg PO BID PRN 07/19/24 03/04/25 History Omeprazole 40 mg PO BID #60 cap 07/20/24 03/04/25 Rx Gabapentin 600 mg PO TID 09/13/24 03/04/25 History ALPRAZolam [Xanax] 0.5 mg PO DAILY PRN 01/02/25 03/04/25 History Furosemide [Lasix] 40 mg PO DAILY #30 tab 01/02/25 03/04/25 Rx Doxycycline Hyclate 100 mg PO BID 03/04/25 03/04/25 History Allergies Allergy/AdvReac Type Severity Reaction Status Date / Time Penicillins Allergy Rash/Hives Verified 03/04/25 12:59 bupropion [From Wellbutrin] AdvReac seizure Verified 03/04/25 12:59 Physical Exam Vitals: Vital Signs Temp Pulse Resp BP Pulse Ox 03/04/25 14:44 96 18 134/84 95 03/04/25 12:27 98.5 F 109 H 18 120/91 99 03/04/25 11:45 100.2 F H 110 H 22 133/88 99 03/04/25 11:18 99.2 F 107 H 17 137/99 98 03/04/25 09:48 126 H 18 128/97 96 03/04/25 09:01 110 H 18 110/83 98 03/04/25 08:23 138 H 22 138/109 100 03/04/25 08:05 98.4 F 122 H 22 134/90 99 Intake and Output 03/04/25 03/04/25 03/04/25 06:59 14:59 22:59 Other: Weight 97.522 kg Results CBC & Chem 7: 03/04/25 08:44 03/04/25 08:44 Labs: Abnormal Lab Results - Last 24 Hours (Table) 03/04/25 03/04/25 Range/Units 08:44 08:44 WBC 10.39 H (4.50-10.00) 10*3/uL Hgb 11.3 L (13.0-17.0) g/dL Hct 36.1 L (39.6-50.0) % MCV 77.5 L (80.0-97.0) fL MCH 24.2 L (27.0-32.0) pg MCHC 31.3 L (32.0-37.0) g/dL MPV 9.0 L (9.5-12.2) fL Neutrophils # 8.01 H (1.80-7.70) 10*3/uL Eosinophils # 0.01 L (0.04-0.35) 10*3/uL Carbon Dioxide 16 L (22-30) mmol/L Creatinine 0.59 L (0.66-1.25) mg/dL Glucose 102 H (74-99) mg/dL Albumin 5.1 H (3.5-5.0) g/dL
[2025-03-04] MEDS ORDERED: ACETAMINOPHEN TAB 325 MG TAB PO PRN (17:51)
[2025-03-04] MEDS: metroNIDAZOLE-NS PMX 500 MG in SALINE 1 100ML.BAG IVPB SCH (18:30)
[2025-03-04 23:01] LABS: Barbiturate Screen,Urine Detected (NotDetected); Benzodiazepines Screen,Urine Detected (NotDetected); Opiate Screen,Urine Detected (NotDetected); Oxycodone Screen, Urine Not Detected (NotDetected); Phencyclidine Screen,Urine Not Detected (NotDetected); Tricyclic Antidepressant,Urine Not Detected (NotDetected); Urn Cannabinoid Scrn Not Detected (NotDetected)
[2025-03-05 07:59] LABS: ALT 17 U/L (10-49); AST 29 U/L (14-35); Albumin 3.6 g/dL (3.8-4.9); Albumin/Globulin Ratio 1.80 Ratio (1.60-3.17); Alkaline Phosphatase 54 U/L (41-126); Anion Gap 14.80 mmol/L (4.00-12.00); BUN/Creat Ratio 10.43 Ratio (12.00-20.00); Blood Urea Nitrogen 7.3 mg/dL (9.0-27.0); Calcium 7.8 mg/dL (8.7-10.3); Carbon Dioxide 21.2 mmol/L (21.6-31.8); Chloride 102 mmol/L (96-109); Globulin 2.0 g/dL (1.6-3.3); Glucose 84 mg/dL (70-110); Potassium 3.4 mmol/L (3.5-5.5); Sodium 138 mmol/L (135-145); Total Protein 5.6 g/dL (6.2-8.2)
[2025-03-05 08:08] LABS: Basophils # (A) 0.06 X 10*3/uL (0.00-0.10); Basophils % (A) 1.2 %; Eosinophils # (A) 0.07 X 10*3/uL (0.04-0.35); Eosinophils % (A) 1.4 %; HCT 29.7 % (39.6-50.0); HGB 8.7 g/dL (13.0-17.0); Immature Grans, Automated 0.20 %; Lymphocytes # (A) 1.15 X 10*3/uL (0.90-5.00); Lymphocytes % (A) 23.5 %; MCH 23.8 pg (27.0-32.0); MCHC 29.3 g/dL (32.0-37.0); MCV 81.1 FL (80.0-97.0); Monocytes # (A) 0.62 X 10*3/uL (0.20-1.00); Monocytes % (A) 12.7 %; NRBC Per 100 WBC 0 X 10*3/uL (0.00-0.01); Neutrophils # (A) 2.99 X 10*3/uL (1.80-7.70); Neutrophils % (A) 61.0 %; Platelet Count 240 X 10*3/uL (140-440); RBC 3.66 X 10*6/uL (4.40-5.60); RDW 19.1 % (11.5-14.5); WBC 4.90 X 10*3/uL (4.50-10.00)
[2025-03-05] MEDS ORDERED: THIAMINE 100 MG TAB PO SCH (09:00)
[2025-03-05] MEDS: ENOXAPARIN 40 MG/0.4 ML SYRINGE SQ SCH (09:07)
[2025-03-05] MEDS: FOLIC ACID 1 MG TAB PO SCH (09:07)
[2025-03-05] MEDS: PANTOPRAZOLE 40 MG/10 ML VIAL IV SCH (09:07)
[2025-03-05] MEDS: THIAMINE 100 MG TAB PO SCH (09:08)
[2025-03-05] MEDS: LORATADINE 10 MG TAB PO SCH (09:08)
[2025-03-05] MEDS: METOPROLOL SUCCINATE (ER) 50 MG TAB.ER.24H PO SCH (09:08)
[2025-03-05] MEDS: MULTIVITAMINS, THERA 1 EACH TAB PO SCH (09:08)
[2025-03-05] MEDS: HYDROcodone/APAP 5-325MG 1 EACH TAB PO PRN (09:14)
[2025-03-05] MEDS: POTASSIUM CHLORIDE ER 20 MEQ TAB.ER PO STA (13:01)
--- NOTE | 2025-03-05 13:14 | P.PN ---
Subjective Progress Note Date: 03/05/25 Hospital Course: Patient is a 49-year-old male with a past medical history of alcohol abuse, hypertension, stomach ulcers, esophageal varices, recurrent episodes of pancreatitis, seizure disorder, anxiety with depression, and PTSD.. He presented to the emergency department with a chief complaint of intractable nausea, vomiting, and diarrhea. He reports symptoms began a couple of days ago and have been on relentless. Patient does have a known history of alcohol abuse but currently denies use stating he is in recovery, however patient has had multiple admission over the last 2 months in which she was found to be intoxicated with blood alcohol level greater than 300 and currently blood alcohol level is 66. Patient denies having any hematemesis, known fevers, chills, dizziness, lightheadedness, headache, chest pain, palpitations, shortness of breath, difficulty or changes with urinary function, or experiencing any numbness/tingling/weakness/swelling in his extremities. Upon arrival to our facility, patient underwent evaluation in the emergency department. Vital signs on arrival show blood pressure 134/90, heart rate 122, respiratory rate 22, temp 98.4 F, and SpO2 of 99% on room air. Shortly after arrival patient's temp elevated to 100.2 F. Labs were completed and reviewed. CBC showing leukocytosis with WBC count of 10.39 and microcytic anemia with hem oglobin of 11.3, MCV of 77.5, MCH of 24.2, and MCHC of 31.3. BMP showing a high anion gap metabolic acidosis with chloride of 102, bicarb of 16, and anion gap of 21. Blood glucose 102. Lactic acid 1.3. Calcium 9.8. Liver profile unremarkable. Serum alcohol level 66. KUB completed showing overall nonobstructive bowel gas pattern. CT abdomen and pelvis with IV contrast revealed within the lower abdominal mesentery there is inflammatory changes reporting nonspecific and could be related to vascular insult or enteritis with adjacent small bowel loops demonstrating mild wall thickening. Patient mated under services with consultation to general surgery. Physical exam: Patient was seen and fully evaluated at bedside this morning. He reports overall feeling much better this morning stating persistent abdominal pain is now intermittent and he has had no further episodes of nausea or vomiting with last episode of diarrhea being yesterday evening. Patient reports feeling hungry for the first time since . Discussed with patient that we are currently awaiting recommendations from general surgery secondary to nonspecific finding on CT. Vital signs reviewed and stable. General: Nontoxic, no distress and appears stated age. Derm: Skin warm and dry, normal coloration for ethnicity. Head: Atraumatic, normocephalic and symmetric. Eyes: EOM's intact, no lid lag, and anicteric sclera Mouth: no lip lesions, mucus membranes moist Cardiovascular: regular rate and rhythm with normal S1S2, no murmur, positive posterior tibial pulses bilaterally, and cap refill < 2 seconds. Lungs: Respirations even, regular, and unlabored on room air. Lungs CTA bilaterally, no rhonchi, no rales, no wheezing, and no accessory muscle usage. Abdominal: soft, bowel sounds x 4 quadrants, nontender upon palpation. No guarding, no appreciable organomegaly Ext: ROM intact. No gross muscle atrophy, no edema, no contractures Neuro: Speech clear, face symmetrical and CN II-XII grossly intact with no noted focal neuro deficits Psych: Alert and oriented to person, place, time, and situation. Appropriate and pleasant affect. Assessment and Plan of Care: Gastric enteritis, possibly secondary to gastritis resulting from alcohol withdraw Intractable nausea, vomiting, and diarrhea likely secondary to above SIRS/sepsis on arrival secondary to tachycardia, pyrexia, tachypnea, and leukocytosis - Continue empiric IV antibiotics with Rocephin 2 g every 24 hours and Flagyl 500 mg IV every 6 hours pending further recommendations from general surgery. General Surgeon consulted, discussed plan in detail with general surgery PA stating recommendations forthcoming per surgeon. Clear liquid diet IV fluid hydration with 0.9% normal saline at 130 cc/h. Zofran 4 mg IVP every 8 hours as needed for nausea and vomiting and Compazine 10 mg IVP every 6 hours as needed for nausea. GI prophylaxis with Protonix 40 mg IVP daily. Symptomatic care and pain management with Tylenol 650 mg every 6 hours as needed for mild pain/fever, [place] 5/325 mg tablets every 4 hours as needed for moderate pain, and morphine 4 mg IVP every 4 hours as needed for severe pain. C. difficile was negative. Urine drug screen positive for opiates, barbiturates, and benzodiazepines. Alcohol withdrawal in active alcoholic Chronic microcytic anemia -Order placed for monitoring of CIWA scores and patient to be medicated with Ativan 0.5 mg every 4 hours as needed for CIWA score of 4-5, Ativan 1 mg every 4 hours for CIWA score of 6-7, Ativan 2 mg every 3 hours CIWA score of 8-9, and Ativan 2 mg every 2 hours forr CIWA score of 10 or greater. -Continuous IV hydration. -Thiamine 100 mg daily, and Multivitamin daily, and Folate 1 mg daily -Seizure, fall, aspiration, and elopement precautions in place. Urine drug screen positive for opiates, barbiturates, and benzodiazepines. -Continued close monitoring of electrolytes and replace as needed. -Telemetry monitoring. Anxiety with depression PTSD Continue trazodone 50 mg nightly, Neurontin 600 mg 3 times daily, and Xanax 0.5 mg daily as needed for anxiety. Data and imaging reviewed: Vital signs reviewed blood pressure 123/86, respiratory rate 16, temp 98.5 F, and SpO2 of 97% on room air. Morning labs reviewed. CBC showing normocytic anemia with hemoglobin of 8.7. Patient with chronic anemia, decreased from initial 11.3 down to 8.7 likely secondary to diuresis from IV fluids administered over the past 24 hours. Patient denies having any hematemesis, melena, or hematochezia. CODE STATUS: Full code DVT prophylaxis: Lovenox Anticipated discharge date: Pending clinical course Anticipated discharge place: Pending clinical course Patient was seen independently by Nurse Practitioner. This document was prepared using [employer] dictation software. Please allow for errors in midwife and birth center owner while rare they do occur. Kolby Schmitz NP rendered care for this patient independently, reviewed the findings and plan as documented in the note above and agree with plan. I did not physically speak with or examine the patient on this date. Objective - Vital Signs Vital signs: Vital Signs Temp 98.5 F 03/05/25 07:29 Pulse 86 03/05/25 07:29 Resp 16 03/05/25 07:29 BP 123/79 03/05/25 07:29 Pulse Ox 97 03/05/25 07:29 FiO2 Intake & Output 03/04/25 03/05/25 03/05/25 18:59 06:59 18:59 Intake Total 519 Balance 519 Weight 97.522 kg Intake: Oral 519 Other: Voiding Method Toilet Toilet # Voids 1 # Bowel Movements 1 - Labs CBC & Chem 7: 03/05/25 04:30 03/05/25 04:30 Labs: Abnormal Lab Results - Last 24 Hours (Table) 03/04/25 03/04/25 03/05/25 Range/Units 08:44 21:35 04:30 RBC 3.66 L (4.40-5.60) X 10*6/uL Hgb 8.7 L (13.0-17.0) g/dL Hct 29.7 L (39.6-50.0) % MCH 23.8 L (27.0-32.0) pg MCHC 29.3 L (32.0-37.0) g/dL RDW 19.1 H (11.5-14.5) % ESR 35 H (0-15) mm/Hr Potassium (3.5-5.5) mmol/L Carbon Dioxide (21.6-31.8) mmol/L Anion Gap (4.00-12.00) mmol/L BUN (9.0-27.0) mg/dL BUN/Creatinine Ratio (12.00-20.00) Ratio Calcium (8.7-10.3) mg/dL Total Protein (6.2-8.2) g/dL Albumin (3.8-4.9) g/dL Urine Opiates Screen Detected H (NotDetected) Ur Barbiturates Screen Detected H (NotDetected) U Benzodiazepines Scrn Detected H (NotDetected) 03/05/25 Range/Units 04:30 RBC (4.40-5.60) X 10*6/uL Hgb (13.0-17.0) g/dL Hct (39.6-50.0) % MCH (27.0-32.0) pg MCHC (32.0-37.0) g/dL RDW (11.5-14.5) % ESR (0-15) mm/Hr Potassium 3.4 L (3.5-5.5) mmol/L Carbon Dioxide 21.2 L (21.6-31.8) mmol/L Anion Gap 14.80 H (4.00-12.00) mmol/L BUN 7.3 L (9.0-27.0) mg/dL BUN/Creatinine Ratio 10.43 L (12.00-20.00) Ratio Calcium 7.8 L (8.7-10.3) mg/dL Total Protein 5.6 L (6.2-8.2) g/dL Albumin 3.6 L (3.8-4.9) g/dL Urine Opiates Screen (NotDetected) Ur Barbiturates Screen (NotDetected) U Benzodiazepines Scrn (NotDetected)
--- NOTE | 2025-03-05 15:33 | P.GSCN ---
History of Present Illness Consult date: 03/05/25 History of present illness: CHIEF COMPLAINT: Abdominal pain HISTORY OF PRESENT ILLNESS: This is a 49-year-old male who presented to the hospital with complaints of abdominal pain that started Wednesday evening. He reports a decreased appetite. He has had a few episodes of vomiting but those appeared to happen after a cough. He has been on antibiotics due to a sinus infection. He also has been having diarrhea. He reports 3 watery stools today with no blood. He reports pain in goes across the abdomen more so in the epigastric area. Does have a prior history of pancreatitis and esophageal varices with peptic ulcer disease. Patient does have a history of EtOH use. His last alcoholic drink was on Wednesday. CAT scan had reported lower abdomen mesenteric inflammation vascular insult or enteritis with a small bowel mild wall thickening. He is on antibiotics. He did have a low-grade temp yesterday and had been mildly tachycardic. Lactic acid normal. No significant evidence of leukocytosis. Surgical service consulted for abdominal pain. Denies family history of Crohn's. PAST MEDICAL HISTORY: Heart Failure, Hypertension, Osteoarthritis (OA), Seizure Disorder, States had Covid, was hospitalized then developed gastritis and sepsis 11/2023, Hx stomach ulcers and esophageal varices, Hx pancreatitis, anemia, last seizure(2022), Hepatitis A diagnosed in [employer] PAST SURGICAL HISTORY: Cholecystectomy MEDICATIONS: See below ALLERGIES: See below SOCIAL HISTORY: No illicit drug use. ETOH REVIEW OF SYSTEMS: CONSTITUTIONAL: Denies fever or chills. HEENT: Denies blurred vision, vision changes, or eye pain. Denies hemoptysis CARDIOVASCULAR: Denies chest pain or pressure. RESPIRATORY: No shortness of breath. GASTROINTESTINAL: See HPI for pertinent findings HEMATOLOGIC: Denies bleeding disorders. GENITOURINARY: Denies any blood in urine or increased urinary frequency. SKIN: Denies pruitis. Denies rash. PHYSICAL EXAM: VITAL SIGNS: Reviewed GENERAL: Well-developed in no acute distress. HEENT: No sclera icterus. Extraocular movements grossly intact. Moist buccal mucosa. Head is atraumatic, normocephalic. No nasal drainage. ABDOMEN: Soft. Nondistended. Mild tenderness across epigastric area and across the mid abdomen NEUROLOGIC: Alert and oriented. Cranial nerves II through XII grossly intact. LABORATORY DATA: WBC 10.39-4.90 Hgb 11.3-8.7 platelets 240 Sodium 138 potassium 3.4 creatinine 0.7 Lipase 135 LFTs normal Stool for C. difficile negative IMAGING: CT scan abdomen pelvis reports lower abdominal mesentery there is inflammatory changes seen. This is nonspecific and could be related to a vascular insult or enteritis. Adjacent small bowel loops demonstrate mild wall thickening ASSESSMENT: 1. Abdominal pain likely due to an enteritis. CAT scan reported lower abdominal mesentery there is inflammatory changes. Nonspecific and could be related to a vascular insult or enteritis. Adjacent small bowel loops demonstrate mild wall thickening. PLAN: - Patient reports he is hungry will advance diet to full liquids - Continue to monitor - Continue supportive care - If patient continues to have abdominal pain tomorrow we will repeat CT scan abdomen pelvis - Continue antibiotics Physician Superintendent Plant note has been reviewed by physician. Signing provider agrees with the documented findings, assessment, and plan of care. Past Medical History Past Medical History: Heart Failure, Hypertension, Osteoarthritis (OA), Seizure Disorder Additional Past Medical History / Comment(s): States had Covid, was hospitalized then developed gastritis and sepsis 11/2023, Hx stomach ulcers and esophageal varices, Hx pancreatitis, anemia, last seizure(2022), Hepatitis A diagnosed in [place] History of Any Multi-Drug Resistant Organisms: None Reported Past Surgical History: Back Surgery, Cholecystectomy, Ear Surgery, Orthopedic Surgery Additional Past Surgical History / Comment(s): EGD, colonoscopy, bilateral myringotomies/tubes, C4-C6 cervical fusion(October 2020), left foot surgery X3 Past Anesthesia/Blood Transfusion Reactions: No Reported Reaction, Motion Sickness Additional Past Anesthesia/Blood Transfusion Reaction / Comm: No hx. blood transfusion. Past Psychological History: Anxiety, Depression, PTSD Smoking Status: Former smoker Past Alcohol Use History: Occasional Past Drug Use History: None Reported - Past Family History Mother Family Medical History: Thyroid Disorder Father Additional Family Medical History / Comment(s): ETOH. Medications and Allergies Home Medications Medication Instructions Recorded Confirmed Type Folic Acid 1 mg PO DAILY 05/18/17 03/04/25 History Cetirizine HCl [Zyrtec] 10 mg PO DAILY 11/18/23 03/04/25 History traZODone HCL [Desyrel] 50 mg PO HS 11/18/23 03/04/25 History Thiamine [Vitamin B-1] 100 mg PO DAILY #30 tab 11/21/23 03/04/25 Rx Magnesium Oxide [Mag-Ox] 1,200 mg PO BID 07/19/24 03/04/25 History Metoprolol Succinate (ER) [Toprol 50 mg PO DAILY 07/19/24 03/04/25 History XL] Multivitamins, Thera [Multivitamin 1 tab PO DAILY 07/19/24 03/04/25 History (formulary)] Ondansetron Odt [Zofran ODT] 4 mg PO BID PRN 07/19/24 03/04/25 History Omeprazole 40 mg PO BID #60 cap 07/20/24 03/04/25 Rx Gabapentin 600 mg PO TID 09/13/24 03/04/25 History ALPRAZolam [Xanax] 0.5 mg PO DAILY PRN 01/02/25 03/04/25 History Furosemide [Lasix] 40 mg PO DAILY #30 tab 01/02/25 03/04/25 Rx Doxycycline Hyclate 100 mg PO BID 03/04/25 03/04/25 History Allergies Allergy/AdvReac Type Severity Reaction Status Date / Time Penicillins Allergy Rash/Hives Verified 03/04/25 12:59 bupropion [From Wellbutrin] AdvReac seizure Verified 03/04/25 12:59 Surgical - Exam Vital Signs Temp Pulse Resp BP Pulse Ox 98.4 F 122 H 22 134/90 99 03/04/25 08:05 03/04/25 08:05 03/04/25 08:05 03/04/25 08:05 03/04/25 08:05 Results - Labs 03/05/25 04:30 03/05/25 04:30 Abnormal Lab Results - Last 24 Hours (Table) 03/04/25 03/04/25 03/05/25 Range/Units 08:44 21:35 04:30 RBC 3.66 L (4.40-5.60) X 10*6/uL Hgb 8.7 L (13.0-17.0) g/dL Hct 29.7 L (39.6-50.0) % MCH 23.8 L (27.0-32.0) pg MCHC 29.3 L (32.0-37.0) g/dL RDW 19.1 H (11.5-14.5) % ESR 35 H (0-15) mm/Hr Potassium (3.5-5.5) mmol/L Carbon Dioxide (21.6-31.8) mmol/L Anion Gap (4.00-12.00) mmol/L BUN (9.0-27.0) mg/dL BUN/Creatinine Ratio (12.00-20.00) Ratio Calcium (8.7-10.3) mg/dL Total Protein (6.2-8.2) g/dL Albumin (3.8-4.9) g/dL Urine Opiates Screen Detected H (NotDetected) Ur Barbiturates Screen Detected H (NotDetected) U Benzodiazepines Scrn Detected H (NotDetected) 03/05/25 Range/Units 04:30 RBC (4.40-5.60) X 10*6/uL Hgb (13.0-17.0) g/dL Hct (39.6-50.0) % MCH (27.0-32.0) pg MCHC (32.0-37.0) g/dL RDW (11.5-14.5) % ESR (0-15) mm/Hr Potassium 3.4 L (3.5-5.5) mmol/L Carbon Dioxide 21.2 L (21.6-31.8) mmol/L Anion Gap 14.80 H (4.00-12.00) mmol/L BUN 7.3 L (9.0-27.0) mg/dL BUN/Creatinine Ratio 10.43 L (12.00-20.00) Ratio Calcium 7.8 L (8.7-10.3) mg/dL Total Protein 5.6 L (6.2-8.2) g/dL Albumin 3.6 L (3.8-4.9) g/dL Urine Opiates Screen (NotDetected) Ur Barbiturates Screen (NotDetected) U Benzodiazepines Scrn (NotDetected) Diabetes panel 03/05/25 Range/Units 04:30 Sodium 138 (135-145) mmol/L Potassium 3.4 L (3.5-5.5) mmol/L Chloride 102 (96-109) mmol/L Carbon Dioxide 21.2 L (21.6-31.8) mmol/L BUN 7.3 L (9.0-27.0) mg/dL Creatinine 0.7 (0.6-1.5) mg/dL Glucose 84 (70-110) mg/dL Calcium 7.8 L (8.7-10.3) mg/dL AST 29 (14-35) U/L ALT 17 (10-49) U/L Alkaline Phosphatase 54 (41-126) U/L Total Protein 5.6 L (6.2-8.2) g/dL Albumin 3.6 L (3.8-4.9) g/dL Calcium panel 03/05/25 Range/Units 04:30 Calcium 7.8 L (8.7-10.3) mg/dL Albumin 3.6 L (3.8-4.9) g/dL Pituitary panel 03/05/25 Range/Units 04:30 Sodium 138 (135-145) mmol/L Potassium 3.4 L (3.5-5.5) mmol/L Chloride 102 (96-109) mmol/L Carbon Dioxide 21.2 L (21.6-31.8) mmol/L BUN 7.3 L (9.0-27.0) mg/dL Creatinine 0.7 (0.6-1.5) mg/dL Glucose 84 (70-110) mg/dL Calcium 7.8 L (8.7-10.3) mg/dL Adrenal panel 03/05/25 Range/Units 04:30 Sodium 138 (135-145) mmol/L Potassium 3.4 L (3.5-5.5) mmol/L Chloride 102 (96-109) mmol/L Carbon Dioxide 21.2 L (21.6-31.8) mmol/L BUN 7.3 L (9.0-27.0) mg/dL Creatinine 0.7 (0.6-1.5) mg/dL Glucose 84 (70-110) mg/dL Calcium 7.8 L (8.7-10.3) mg/dL Total Bilirubin 0.5 (0.3-1.2) mg/dL AST 29 (14-35) U/L ALT 17 (10-49) U/L Alkaline Phosphatase 54 (41-126) U/L Total Protein 5.6 L (6.2-8.2) g/dL Albumin 3.6 L (3.8-4.9) g/dL
[2025-03-05] MEDS: ALPRAZolam 0.5 MG TAB PO PRN (21:30)
[2025-03-06 06:38] LABS: Basophils # (A) 0.03 10*3/uL (0.00-0.10); Basophils % (A) 0.7 %; Eosinophils # (A) 0.18 10*3/uL (0.04-0.35); Eosinophils % (A) 3.9 %; HCT 31.7 % (39.6-50.0); Lymphocytes # (A) 1.64 10*3/uL (0.90-5.00); Lymphocytes % (A) 35.9 %; MCH 23.8 pg (27.0-32.0); MCHC 30.3 g/dL (32.0-37.0); MCV 78.7 fL (80.0-97.0); Monocytes # (A) 0.65 10*3/uL (0.20-1.00); Monocytes % (A) 14.2 %; Neutrophils # (A) 2.06 10*3/uL (1.80-7.70); Neutrophils % (A) 45.1 %; Platelet Count 197 10*3/uL (140-440); RBC 4.03 10*6/uL (4.40-5.60); RDW 18.6 % (11.5-14.5); WBC 4.57 10*3/uL (4.50-10.00)
[2025-03-06 06:42] LABS: African American GFR (CKD) >90 (>60 ml/min/1.73 sqM); Anion Gap 11 mmol/L; Blood Urea Nitrogen <2 mg/dL (9-20); Calcium 8.1 mg/dL (8.4-10.2); Carbon Dioxide 20 mmol/L (22-30); Chloride 105 mmol/L (98-107); Glucose 111 mg/dL (74-99); Non-African American GFR(CKD) >90 (>60 ml/min/1.73 sqM); Potassium 3.3 mmol/L (3.5-5.1); Sodium 136 mmol/L (137-145)
[2025-03-06 06:46] LABS: HGB 9.6 g/dL (13.0-17.0); Magnesium 0.9 mg/dL (1.6-2.3)
[2025-03-06] MEDS ORDERED: Magnesium Replacement Protocol 1 EACH MISC MISCELLANE PRN (06:50)
[2025-03-06] MEDS ORDERED: MAGNESIUM SULFATE-D5W PMX 1 GM in DEXTROSE/WATER 1 100ML.BAG IVPB ONE (06:50)
[2025-03-06] MEDS ORDERED: Potassium Replacement Protocol 1 EACH MISC MISCELLANE PRN (06:51)
[2025-03-06] MEDS ORDERED: POTASSIUM CHLORIDE ER 20 MEQ TAB.ER PO ONE (06:51)
[2025-03-06] MEDS ORDERED: MAGNESIUM SULFATE-D5W PMX 1 GM in DEXTROSE/WATER 1 100ML.BAG IVPB SCH (07:00)
[2025-03-06] MEDS ORDERED: POTASSIUM CHLORIDE ER 20 MEQ TAB.ER PO SCH (07:00)
[2025-03-06] MEDS: POTASSIUM CHLORIDE ER 20 MEQ TAB.ER PO STA (08:33)
[2025-03-06] MEDS: MAGNESIUM SULFATE-D5W PMX 1 GM in DEXTROSE/WATER 1 100ML.BAG IVPB SCH ×2 (08:34→18:24)
[2025-03-06 13:06] LABS: African American GFR (CKD) >90 (>60 ml/min/1.73 sqM); Anion Gap 7 mmol/L; Blood Urea Nitrogen <2 mg/dL (9-20); Calcium 8.2 mg/dL (8.4-10.2); Carbon Dioxide 24 mmol/L (22-30); Chloride 103 mmol/L (98-107); Glucose 124 mg/dL (74-99); Magnesium 1.6 mg/dL (1.6-2.3); Non-African American GFR(CKD) >90 (>60 ml/min/1.73 sqM); Potassium 3.9 mmol/L (3.5-5.1); Sodium 134 mmol/L (137-145)
--- NOTE | 2025-03-06 14:22 | P.PN ---
Subjective Progress Note Date: 03/06/25 SURGICAL PROGRESS NOTE CHIEF COMPLAINT: Abdominal pain HISTORY OF PRESENT ILLNESS: Patient reports improvement in his abdominal pain. He has had diarrhea about 3 episodes last night and one this morning. He denies any nausea or vomiting. He reports feeling hungry and wants advancement of diet. WBC is 4.57 Hgb 9.6 potassium 3.3 magnesium 0.9 Patient seen and examined with Dr. Miller PHYSICAL EXAM: VITAL SIGNS: Reviewed. GENERAL: Well-developed in no acute distress. HEENT: No sclera icterus. Extraocular movements grossly intact. Moist buccal mucosa. Head is atraumatic, normocephalic. ABDOMEN: Soft. Nondistended. Very mild discomfort palpation epigastric area NEUROLOGIC: Alert and oriented. Cranial nerves II through XII grossly intact. ASSESSMENT: 1. Abdominal pain likely due to an enteritis. CAT scan reported lower abdominal mesentery there is inflammatory changes. Nonspecific and could be related to a vascular insult or enteritis. Adjacent small bowel loops demonstrate mild wall thickening. PLAN: - Patient symptoms are improving. Tolerated full liquid diet. Advance diet to regular. If patient tolerates diet advancement he can be discharged from surgical standpoint - Electrolytes being replaced by medicine service - Antibiotics per medicine service Physician Trash Collector Supervisor note has been reviewed by physician. Signing provider agrees with the documented findings, assessment, and plan of care. Objective - Vital Signs Vital signs: Vital Signs Temp 98.0 F 03/06/25 07:38 Pulse 81 03/06/25 07:38 Resp 18 03/06/25 07:38 BP 144/100 03/06/25 07:38 Pulse Ox 99 03/06/25 07:38 FiO2 Intake & Output 03/05/25 03/06/25 03/06/25 18:59 06:59 18:59 Intake Total 1239 240 Output Total 300 Balance 1239 -300 240 Intake: Oral 1239 240 Output: Urine 300 Other: Voiding Method Toilet Toilet Urinal # Voids 4 3 # Bowel Movements 2 - Labs CBC & Chem 7: 03/06/25 05:42 03/06/25 12:22 Labs: Abnormal Lab Results - Last 24 Hours (Table) 03/06/25 03/06/25 03/06/25 Range/Units 05:42 05:42 12:22 RBC 4.03 L (4.40-5.60) 10*6/uL Hgb 9.6 L D (13.0-17.0) g/dL Hct 31.7 L (39.6-50.0) % MCV 78.7 L (80.0-97.0) fL MCH 23.8 L (27.0-32.0) pg MCHC 30.3 L (32.0-37.0) g/dL RDW 18.6 H (11.5-14.5) % Sodium 136 L 134 L (137-145) mmol/L Potassium 3.3 L (3.5-5.1) mmol/L Carbon Dioxide 20 L (22-30) mmol/L BUN <2 L <2 L (9-20) mg/dL Creatinine 0.55 L 0.53 L (0.66-1.25) mg/dL Glucose 111 H 124 H (74-99) mg/dL Calcium 8.1 L 8.2 L (8.4-10.2) mg/dL Magnesium 0.9 L* (1.6-2.3) mg/dL Microbiology - Last 24 Hours (Table) 03/04/25 21:35 Stool Culture - Preliminary Stool 03/04/25 18:22 Blood Culture - Preliminary Blood
--- NOTE | 2025-03-06 18:17 | P.PN ---
Subjective Progress Note Date: 03/06/25 Hospital Course: Patient is a 49-year-old male with a past medical history of alcohol abuse, hypertension, stomach ulcers, esophageal varices, recurrent episodes of pancreatitis, seizure disorder, anxiety with depression, and PTSD.. He presented to the emergency department with a chief complaint of intractable nausea, vomiting, and diarrhea. He reports symptoms began a couple of days ago and have been on relentless. Patient does have a known history of alcohol abuse but currently denies use stating he is in recovery, however patient has had multiple admission over the last 2 months in which she was found to be intoxicated with blood alcohol level greater than 300 and currently blood alcohol level is 66. Patient denies having any hematemesis, known fevers, chills, dizziness, lightheadedness, headache, chest pain, palpitations, shortness of breath, difficulty or changes with urinary function, or experiencing any numbness/tingling/weakness/swelling in his extremities. Upon arrival to our facility, patient underwent evaluation in the emergency department. Vital signs on arrival show blood pressure 134/90, heart rate 122, respiratory rate 22, temp 98.4 F, and SpO2 of 99% on room air. Shortly after arrival patient's temp elevated to 100.2 F. Labs were completed and reviewed. CBC showing leukocytosis with WBC count of 10.39 and microcytic anemia with hem oglobin of 11.3, MCV of 77.5, MCH of 24.2, and MCHC of 31.3. BMP showing a high anion gap metabolic acidosis with chloride of 102, bicarb of 16, and anion gap of 21. Blood glucose 102. Lactic acid 1.3. Calcium 9.8. Liver profile unremarkable. Serum alcohol level 66. KUB completed showing overall nonobstructive bowel gas pattern. CT abdomen and pelvis with IV contrast revealed within the lower abdominal mesentery there is inflammatory changes reporting nonspecific and could be related to vascular insult or enteritis with adjacent small bowel loops demonstrating mild wall thickening. Patient mated under services with consultation to general surgery. Physical exam: Patient was seen and fully evaluated at bedside this morning. He reports overall feeling much better this morning stating persistent abdominal pain is now intermittent and he has had no further episodes of nausea or vomiting. Patient however does admit to continued frequent episodes of diarrhea reporting 3 overnight. Magnesium this morning was low at 0.9. Vital signs reviewed and stable. General: Nontoxic, no distress and appears stated age. Derm: Skin warm and dry, normal coloration for ethnicity. Head: Atraumatic, normocephalic and symmetric. Eyes: EOM's intact, no lid lag, and anicteric sclera Mouth: no lip lesions, mucus membranes moist Cardiovascular: regular rate and rhythm with normal S1S2, no murmur, positive posterior tibial pulses bilaterally, and cap refill < 2 seconds. Lungs: Respirations even, regular, and unlabored on room air. Lungs CTA bilaterally, no rhonchi, no rales, no wheezing, and no accessory muscle usage. Abdominal: soft, bowel sounds x 4 quadrants, nontender upon palpation. No guarding, no appreciable organomegaly Ext: ROM intact. No gross muscle atrophy, no edema, no contractures Neuro: Speech clear, face symmetrical and CN II-XII grossly intact with no noted focal neuro deficits Psych: Alert and oriented to person, place, time, and situation. Appropriate and pleasant affect. Assessment and Plan of Care: Gastric enteritis, possibly secondary to gastritis resulting from alcohol withdraw Severe hypomagnesemia Intractable nausea, vomiting, and diarrhea likely secondary to above SIRS/sepsis on arrival secondary to tachycardia, pyrexia, tachypnea, and leukocytosis - Continue empiric IV antibiotics with Rocephin 2 g every 24 hours and Flagyl 500 mg IV every 6 hours pending further recommendations from general surgery. General Surgeon consulted, discussed plan in detail with general surgery PA stating recommendations forthcoming per surgeon. Clear liquid diet, diet to be advanced as recommended by general surgery team. IV fluid hydration with 0.9% normal saline at 130 cc/h. Zofran 4 mg IVP every 8 hours as needed for nausea and vomiting and Compazine 10 mg IVP every 6 hours as needed for nausea. GI prophylaxis with Protonix 40 mg IVP daily. Symptomatic care and pain management with Tylenol 650 mg every 6 hours as needed for mild pain/fever, [place] 5/325 mg tablets every 4 hours as needed for moderate pain, and morphine 4 mg IVP every 4 hours as needed for severe pain. C. difficile was negative. Stool culture pending. Blood culture showing no growth to date. Urine drug screen positive for opiates, barbiturates, and benzodiazepines. Alcohol withdrawal in active alcoholic Chronic microcytic anemia -Order placed for monitoring of CIWA scores and patient to be medicated with Ativan 0.5 mg every 4 hours as needed for CIWA score of 4-5, Ativan 1 mg every 4 hours for CIWA score of 6-7, Ativan 2 mg every 3 hours CIWA score of 8-9, and Ativan 2 mg every 2 hours forr CIWA score of 10 or greater. -Continuous IV hydration. -Thiamine 100 mg daily, and Multivitamin daily, and Folate 1 mg daily -Seizure, fall, aspiration, and elopement precautions in place. Urine drug screen positive for opiates, barbiturates, and benzodiazepines. -Continued close monitoring of electrolytes and replace as needed. -Telemetry monitoring. Anxiety with depression PTSD Continue trazodone 50 mg nightly, Neurontin 600 mg 3 times daily, and Xanax 0.5 mg daily as needed for anxiety. Data and imaging reviewed: Vital signs reviewed blood pressure 134/96, heart rate 81, respiratory rate 18, temp 98.0 F, and SpO2 of 99% on room air. Temperature high over the past 24 hours was 99.0 F. Morning labs reviewed. CBC showing stable microcytic anemia with hemoglobin of 9.6. BMP showing sodium 136, potassium 3.3, bicarb of 20, anion gap improving to 11. Blood glucose 111. And magnesium 0.9. CODE STATUS: Full code DVT prophylaxis: Lovenox Anticipated discharge date: Pending clinical course Anticipated discharge place: Pending clinical course Patient was seen independently by Nurse Practitioner. This document was prepared using Zoom dictation software. Please allow for e rrors in web consultant while rare they do occur. Kolby Schmitz NP rendered care for this patient independently, reviewed the findings and plan as documented in the note above and agree with plan. I did not physically speak with or examine the patient on this date. Objective - Vital Signs Vital signs: Vital Signs Temp 98.0 F 03/06/25 07:38 Pulse 81 03/06/25 07:38 Resp 18 03/06/25 07:38 BP 144/100 03/06/25 07:38 Pulse Ox 99 03/06/25 07:38 FiO2 Intake & Output 03/05/25 03/06/25 03/06/25 18:59 06:59 18:59 Intake Total 1239 240 Output Total 300 Balance 1239 -300 240 Intake: Oral 1239 240 Output: Urine 300 Other: Voiding Method Toilet Toilet Urinal # Voids 4 3 # Bowel Movements 2 - Labs CBC & Chem 7: 03/06/25 05:42 03/06/25 12:22 Labs: Abnormal Lab Results - Last 24 Hours (Table) 03/06/25 03/06/25 Range/Units 05:42 05:42 RBC 4.03 L (4.40-5.60) 10*6/uL Hgb 9.6 L D (13.0-17.0) g/dL Hct 31.7 L (39.6-50.0) % MCV 78.7 L (80.0-97.0) fL MCH 23.8 L (27.0-32.0) pg MCHC 30.3 L (32.0-37.0) g/dL RDW 18.6 H (11.5-14.5) % Sodium 136 L (137-145) mmol/L Potassium 3.3 L (3.5-5.1) mmol/L Carbon Dioxide 20 L (22-30) mmol/L BUN <2 L (9-20) mg/dL Creatinine 0.55 L (0.66-1.25) mg/dL Glucose 111 H (74-99) mg/dL Calcium 8.1 L (8.4-10.2) mg/dL Magnesium 0.9 L* (1.6-2.3) mg/dL Microbiology - Last 24 Hours (Table) 03/04/25 21:35 Stool Culture - Preliminary Stool 03/04/25 18:22 Blood Culture - Preliminary Blood
[2025-03-07 02:35] VITALS: TEMP 98.1
[2025-03-07 07:56] LABS: HCT 30.8 % (39.6-50.0); HGB 9.1 g/dL (13.0-17.0); MCH 24.1 pg (27.0-32.0); MCHC 29.5 g/dL (32.0-37.0); MCV 81.7 FL (80.0-97.0); NRBC Per 100 WBC 0 X 10*3/uL (0.00-0.01); Platelet Count 231 X 10*3/uL (140-440); RBC 3.77 X 10*6/uL (4.40-5.60); RDW 18.7 % (11.5-14.5); WBC 5.70 X 10*3/uL (4.50-10.00)
[2025-03-07 08:22] LABS: ALT 14 U/L (10-49); AST 23 U/L (14-35); Albumin 3.5 g/dL (3.8-4.9); Albumin/Globulin Ratio 1.67 Ratio (1.60-3.17); Alkaline Phosphatase 50 U/L (41-126); Anion Gap 11.60 mmol/L (4.00-12.00); BUN/Creat Ratio 5.83 Ratio (12.00-20.00); Blood Urea Nitrogen 3.5 mg/dL (9.0-27.0); Calcium 8.4 mg/dL (8.7-10.3); Carbon Dioxide 21.4 mmol/L (21.6-31.8); Chloride 105 mmol/L (96-109); Globulin 2.1 g/dL (1.6-3.3); Glucose 110 mg/dL (70-110); Magnesium 1.3 mg/dL (1.5-2.4); Potassium 3.6 mmol/L (3.5-5.5); Sodium 138 mmol/L (135-145); Total Protein 5.6 g/dL (6.2-8.2)
[2025-03-07 09:17] VITALS: BP 136/77; PULSE 83; RESP 16
[2025-03-07] MEDS: MAGNESIUM SULFATE-D5W PMX 1 GM in DEXTROSE/WATER 1 100ML.BAG IVPB SCH (09:49)
[2025-03-07] MEDS: MAGNESIUM OXIDE 400 MG TAB PO STA (09:49)
--- NOTE | 2025-03-07 11:45 | P.DS ---
Providers Date of admission: 03/05/25 14:02 Expected date of discharge: 03/07/25 Attending physician: Scotty Johns MD Consults: 03/04/25 12:23 Consult Physician Urgent Consulting Provider: Cristóbal Miller Consult Reason/Comments: abp w abnoral ct Do you want consulting provider notified?: Yes Primary care physician: Landry Bravo [facility] Hospital Course: Discharge Diagnosis: Gastric enteritis, possibly secondary to gastritis resulting from alcohol withdraw vs infectious enteritis. C. difficile negative and stool culture preliminarily negative showing no Salmonella, no Shigella, and no E. coli reported. Blood cultures showing no growth to date. Patient had full resolution of abdominal pain/discomfort and no further episodes of nausea or vomiting. He continues to have diarrhea, but it is improving in frequency. Patient reports 3 episodes of diarrhea over the past 24 hours from previous 7- 15. Patient received 3-day course of IV antibiotics with Rocephin and Flagyl. He was evaluated by general surgery team and per their recommendations being discharged home on an additional 5-day course of Ceftin and Flagyl. Patient was strongly educated on the importance to avoid any and all alcohol use while taking Flagyl. Severe hypomagnesemia. Magnesium initially 0.9. This was replaced with repeat magnesium still remaining low resulting at 1.6 and again at 1.3 additional orders were placed for replacement and patient was only willing to take partial replacement and refused remaining doses demanding discharge stating he is taking his own supplements at home and is no longer wasting any time in the hospital. Intractable nausea, vomiting, and diarrhea likely secondary to above. Patient had full resolution of abdominal pain, nausea, and vomiting and reports diarrhea improving. SIRS/sepsis on arrival secondary to tachycardia, pyrexia, tachypnea, and leukocytosis. Patient received 3-day course of IV antibiotics with Rocephin and Flagyl. He was evaluated by general surgery team and per their recommendations being discharged home on an additional 5-day course of Ceftin and Flagyl. Patient was strongly educated on the importance to avoid any and all alcohol use while taking Flagyl. Alcohol withdrawal in active alcoholic. Patient does have a known history of alcohol abuse but adamantly denies any alcohol use stating he is in recovery and sober, however patient has had multiple admission over the last 2 months in which he was found to be intoxicated with blood alcohol level greater than 300 and upon arrival to our facility blood alcohol level was 66. Patient strongly encouraged to avoid any and all use. Chronic microcytic anemia. Hemoglobin upon discharge 9.1. Anxiety with depression. Continue trazodone 50 mg nightly, Neurontin 600 mg 3 times daily, and Xanax 0.5 mg daily as needed for anxiety. PTSD. Continue trazodone 50 mg nightly, Neurontin 600 mg 3 times daily, and Xanax 0.5 mg daily as needed for anxiety. Hospital Course: Patient is a 49-year-old male with a past medical history of alcohol abuse, hypertension, stomach ulcers, esophageal varices, recurrent episodes of pancreatitis, seizure disorder, anxiety with depression, and PTSD.. He presented to the emergency department with a chief complaint of intractable nausea, vomiting, and diarrhea. He reports symptoms began a couple of days ago and have been on relentless. Patient does have a known history of alcohol abuse but adamantly denies any alcohol use stating he is in recovery and sober, alok al patient has had multiple admission over the last 2 months in which he was found to be intoxicated with blood alcohol level greater than 300 and upon arrival to our facility blood alcohol level was 66. Patient denies having any hematemesis, known fevers, chills, dizziness, lightheadedness, headache, chest pain, palpitations, shortness of breath, difficulty or changes with urinary function, or experiencing any numbness/tingling/weakness/swelling in his extremities. Upon arrival to our facility, patient underwent evaluation in the emergency department. Vital signs on arrival show blood pressure 134/90, heart rate 122, respiratory rate 22, temp 98.4 F, and SpO2 of 99% on room air. Shortly after arrival patient's temp elevated to 100.2 F. Labs were completed and reviewed. CBC showing leukocytosis with WBC count of 10.39 and microcytic anemia with hemoglobin of 11.3, MCV of 77.5, MCH of 24.2, and MCHC of 31.3. BMP showing a high anion gap metabolic acidosis with chloride of 102, bicarb of 16, and anion gap of 21. Blood glucose 102. Lactic acid 1.3. Calcium 9.8. Liver profile unremarkable. Serum alcohol level 66. KUB completed showing overall nonobstructive bowel gas pattern. CT abdomen and pelvis with IV contrast revealed within the lower abdominal mesentery there is inflammatory changes reporting nonspecific and could be related to vascular insult or enteritis with adjacent small bowel loops demonstrating mild wall thickening. Patient mated under services with consultation to general surgery. Gastric enteritis, possibly secondary to gastritis resulting from alcohol withdraw vs infectious enteritis. C. difficile negative and stool culture preliminarily negative showing no Salmonella, no Shigella, and no E. coli reported. Blood cultures showing no growth to date. Patient had full resolution of abdominal pain/discomfort and no further episodes of nausea or vomiting. He continues to have diarrhea, but it is improving in frequency. Patient reports 3 episodes of diarrhea over the past 24 hours from previous 7-15. Patient received 3-day course of IV antibiotics with Rocephin and Flagyl. He was evaluated by general surgery team and per their recommendations being discharged home on an additional 5-day course of Ceftin and Flagyl. Patient was strongly educated on the importance to avoid any and all alcohol use while taking Flagyl. Patient strongly encouraged to follow- up outpatient with PCP in 1 to 2 days and with general surgeon Dr. Miller in 1 week. Physical exam: Vital signs reviewed and stable. General: Nontoxic, no distress and appears stated age. Derm: Skin warm and dry, normal coloration for ethnicity. Head: Atraumatic, normocephalic and symmetric. Eyes: EOM's intact, no lid lag, and anicteric sclera Mouth: no lip lesions, mucus membranes moist Cardiovascular: regular rate and rhythm with normal S1S2, no murmur, positive posterior tibial pulses bilaterally, and cap refill < 2 seconds. Lungs: Respirations even, regular, and unlabored on room air. Lungs CTA bilaterally, no rhonchi, no rales, no wheezing, and no accessory muscle usage. Abdominal: soft, bowel sounds x 4 quadrants, nontender upon palpation. No guarding, no appreciable organomegaly Ext: ROM intact. No gross muscle atrophy, no edema, no contractures Neuro: Speech clear, face symmetrical and CN II-XII grossly intact with no noted focal neuro deficits Psych: Alert and oriented to person, place, time, and situation. Appropriate and pleasant affect. A total of 35 minutes of time were spent preparing this complex discharge summary. Pt was discharged on 03/07/2025 at 10:42 AM. Patient was seen independently by Nurse Practitioner. This document was prepared using [employer] dictation software. Please allow for errors in caser while rare they do occur. Kolby Schmitz NP rendered care for this patient independently, reviewed the findings and plan as documented in the note above. I did not physically speak with or examine the patient on this date. Patient Condition at Discharge: Stable Plan - Discharge Summary Discharge Rx Participant: No New Discharge Prescriptions: New cefuroxime axetiL [Ceftin] 500 mg PO BID 5 Days #10 tab metroNIDAZOLE [Flagyl] 500 mg PO TID 5 Days #15 tab Continue Folic Acid 1 mg PO DAILY Thiamine [Vitamin B-1] 100 mg PO DAILY #30 tab Metoprolol Succinate (ER) [Toprol XL] 50 mg PO DAILY Multivitamins, Thera [Multivitamin (formulary)] 1 tab PO DAILY Magnesium Oxide [Mag-Ox] 1,200 mg PO BID Omeprazole 40 mg PO BID #60 cap traZODone HCL [Desyrel] 50 mg PO HS Cetirizine HCl [Zyrtec] 10 mg PO DAILY Ondansetron Odt [Zofran ODT] 4 mg PO BID PRN PRN Reason: Nausea And Vomiting Gabapentin 600 mg PO TID ALPRAZolam [Xanax] 0.5 mg PO DAILY PRN PRN Reason: Anxiety Furosemide [Lasix] 40 mg PO DAILY #30 tab Discontinued Doxycycline Hyclate 100 mg PO BID Discharge Medication List Folic Acid 1 mg PO DAILY 05/18/17 [History] Cetirizine HCl [Zyrtec] 10 mg PO DAILY 11/18/23 [History] traZODone HCL [Desyrel] 50 mg PO HS 11/18/23 [History] Thiamine [Vitamin B-1] 100 mg PO DAILY #30 tab 11/21/23 [Rx] Magnesium Oxide [Mag-Ox] 1,200 mg PO BID 07/19/24 [History] Metoprolol Succinate (ER) [Toprol XL] 50 mg PO DAILY 07/19/24 [History] Multivitamins, Thera [Multivitamin (formulary)] 1 tab PO DAILY 07/19/24 [History] Ondansetron Odt [Zofran ODT] 4 mg PO BID PRN 07/19/24 [History] Omeprazole 40 mg PO BID #60 cap 07/20/24 [Rx] Gabapentin 600 mg PO TID 02/05/25 [History] ALPRAZolam [Xanax] 0.5 mg PO DAILY PRN 01/02/25 [History] Furosemide [Lasix] 40 mg PO DAILY #30 tab 01/02/25 [Rx] cefuroxime axetiL [Ceftin] 500 mg PO BID 5 Days #10 tab 03/07/25 [Rx] metroNIDAZOLE [Flagyl] 500 mg PO TID 5 Days #15 tab 03/07/25 [Rx] Follow up Appointment(s)/Referral(s): Landry Lacey DO [Primary Care Provider] - 1-2 days Cristóbal Miller MD [STAFF PHYSICIAN] - 1 Week Patient Instructions/Handouts: Abuse of Alcohol (DC), Hypomagnesemia (DC), Infectious Colitis (GEN) Activity/Diet/Wound Care/Special Instructions: Activity: As tolerated. Take breaks as needed. Diet: Heart healthy, low-fat and carb consistent diet. Special Instructions: Take all of your medications as directed and remember to keep all of your doctor's appointments and follow-up as needed. Strongly recommend avoidance of any and all alcohol use, absolutely no alcohol use while taking the medication Flagyl for treatment of your colitis. Recommend continuing to hold Lasix until full resolution of your diarrhea. Once resolved and diet back to baseline may resume Lasix 40 mg daily as previously prescribed by your PCP. Thank you for allowing us to participate in your care, it was truly a pleasure having you for our patient!!! Discharge/Stand Alone Forms: AA [facility], Who Do I Call?, Outpatient Counseling, Inp Substance Abuse Facilities Discharge Disposition: HOME SELF-CARE
--- NOTE | 2025-03-07 15:26 | P.PN ---
Subjective Progress Note Date: 03/07/25 SURGICAL PROGRESS NOTE CHIEF COMPLAINT: Abdominal pain HISTORY OF PRESENT ILLNESS: Patient reports improvement in abdominal pain. He reports his diarrhea is improving. He is tolerating regular diet. PHYSICAL EXAM: VITAL SIGNS: Reviewed. GENERAL: Well-developed in no acute distress. HEENT: No sclera icterus. Extraocular movements grossly intact. Moist buccal mucosa. Head is atraumatic, normocephalic. ABDOMEN: Soft. Nondistended. Nontender NEUROLOGIC: Alert and oriented. Cranial nerves II through XII grossly intact. ASSESSMENT: 1. Abdominal pain likely due to an enteritis. Resolved PLAN: -Continue 5 more days of antibiotics -Patient can be discharge from surgical standpoint Physician Puppy Sitter note has been reviewed by physician. Signing provider agrees with the documented findings, assessment, and plan of care. Objective - Vital Signs Vital signs: Vital Signs Temp 98.1 F 03/07/25 07:32 Pulse 83 03/07/25 07:32 Resp 16 03/07/25 07:32 BP 136/77 03/07/25 07:32 Pulse Ox 99 03/07/25 07:32 FiO2 Intake & Output 03/06/25 03/07/25 03/07/25 18:59 06:59 18:59 Intake Total 480 Balance 480 Intake: Oral 480 Other: Voiding Method Toilet Toilet Urinal # Voids 2 # Bowel Movements 0 - Labs CBC & Chem 7: 03/07/25 05:11 03/07/25 05:11 Labs: Abnormal Lab Results - Last 24 Hours (Table) 03/07/25 03/07/25 Range/Units 05:11 05:11 RBC 3.77 L (4.40-5.60) X 10*6/uL Hgb 9.1 L (13.0-17.0) g/dL Hct 30.8 L (39.6-50.0) % MCH 24.1 L (27.0-32.0) pg MCHC 29.5 L (32.0-37.0) g/dL RDW 18.7 H (11.5-14.5) % Carbon Dioxide 21.4 L (21.6-31.8) mmol/L BUN 3.5 L (9.0-27.0) mg/dL BUN/Creatinine Ratio 5.83 L (12.00-20.00) Ratio Calcium 8.4 L (8.7-10.3) mg/dL Magnesium 1.3 L (1.5-2.4) mg/dL Total Bilirubin <0.2 L (0.3-1.2) mg/dL Total Protein 5.6 L (6.2-8.2) g/dL Albumin 3.5 L (3.8-4.9) g/dL Microbiology - Last 24 Hours (Table) 03/04/25 21:35 Stool Culture - Preliminary Stool 03/04/25 18:22 Blood Culture - Preliminary Blood
== END 2025-03-07 11:29 | disposition home or self-care (01) | DRG 720 ==
LOC: EC 07:59 → 6NMEDSUR 12:25 → OBSVTOIN 03-05 14:02
PROVIDERS: ADMIT Family Medicine; ATTEND Family Medicine
DX: A41.9 Sepsis, unspecified organism (principal); D50.9 Iron deficiency anemia, unspecified; E83.42 Hypomagnesemia; E87.20 Acidosis, unspecified; F10.239 Alcohol dependence with withdrawal, unspecified; F10.229 Alcohol dependence with intoxication, unspecified; M19.90 Unspecified osteoarthritis, unspecified site; Y90.3 Blood alcohol level of 60-79 mg/100 ml; B15.9 Hepatitis A without hepatic coma; F32.A Depression, unspecified; F41.9 Anxiety disorder, unspecified; F43.10 Post-traumatic stress disorder, unspecified; E66.01 Morbid (severe) obesity due to excess calories; Z68.30 Body mass index [BMI] 30.0-30.9, adult; G40.909 Epilepsy, unspecified, not intractable, without status epilepticus; I11.0 Hypertensive heart disease with heart failure; I50.9 Heart failure, unspecified; K52.9 Noninfective gastroenteritis and colitis, unspecified; Z79.899 Other long term (current) drug therapy; Z87.11 Personal history of peptic ulcer disease; Z87.891 Personal history of nicotine dependence; Z86.16 Personal history of COVID-19; Z86.19 Personal history of other infectious and parasitic diseases; Z88.6 Allergy status to analgesic agent; Z91.010 Allergy to peanuts
CPT/HCPCS: 36415; 74018; 74177; 80048; 80053; 80306; 80320; 82150; 83605; 83690; 83735; 85025; 85027; 85652; 86140; 87040; 87045; 87046; 87493; 96361; 96365; 96372; 96375; 96376; 99285